=== PATIENT | male | born 1960 | race Hispanic/Latino ===

== ENCOUNTER 2018-04-26 14:59 | Observation (INO) | payer OTHER ==
[2018-04-26] MEDS ORDERED: D50W 25 GM/50 ML SYRINGE IV PRN (15:44)
[2018-04-26] MEDS ORDERED: GLUCAGON 1 MG/VIAL IM PRN (15:44)
--- NOTE | 2018-04-26 15:59 | RAD REPORT ---
EXAM DESCRIPTION: Obed Single View04/26/2018 3:53 pm CLINICAL HISTORY: Chest pain COMPARISON: February 2017 FINDINGS: The lungs appear clear of acute infiltrate. The heart is normal size. Old left rib fractu res are noted IMPRESSION: No acute abnormalities displayed
[2018-04-26] MEDS: INSULIN -REGULAR HUMAN 50 UNIT/0.5 ML ML SQ SCH ×2 (16:30→21:48)
--- NOTE | 2018-04-26 16:39 | RAD REPORT ---
EXAM DESCRIPTION: CT - Head Brain Wo Cont - 04/26/2018 4:20 pm CLINICAL HISTORY: Transient alteration of awareness COMPARISON: None. TECHNIQUE: Axial 5 mm thick images of the head were obtained without IV contrast. All CT scans are performed using dose optimization technique as appropriate and may include automated exposure control or mA/KV adjustment according to patient size. FINDINGS: No intracranial hemorrhage, mass, edema or shift of mid-line structures. No acute infarcti on changes seen. No measurable atrophy or chronic ischemic change. Ventricles are normal. Mastoid air cells and visualized portions of the paranasal sinuses are clear. No acute bony findings. IMPRESSION: Negative non-contrast CT head examination.
[2018-04-26 17:11] LABS: Absolute Lymphocytes (CBC) 1.8 K/uL (0.7-4.9); Absolute Monocytes 0.7 K/uL (0.1-1.3); Absolute Neutrophil 5.3 K/uL (1.8-8.0); Eosinophils % 1.7 % (0-4.4); Hematocrit 35.3 % (39.6-49.0); Lymphocytes % 22.6 % (15.3-44.8); MCH 32.6 pg (27.0-35.0); MCV 95.2 fL (80-100); MPV 8.1 fL (7.6-11.3); Monocytes % 8.5 % (3.3-12.3); RBC Red Blood Cell Count 3.71 M/uL (4.33-5.43)
[2018-04-26] MEDS: NA CHLORIDE 0.9% 1,000 ML IV SCH ×2 (17:23→23:45)
[2018-04-26 17:28] LABS: Albumin 2.6 g/dL (3.4-5.0); Bilirubin Total 0.2 mg/dL (0.2-1.0); Potassium 4.4 mmol/L (3.5-5.1)
[2018-04-26 19:01] LABS: Urine Appearance CLEAR; Urine Bilirubin NEGATIVE (NEG); Urine Blood 1+ (NEG); Urine Color YELLOW; Urine Glucose 3+ (NEG); Urine Protein 2+ (NEG); Urine Specific Gravity 1.015 (1.005-1.030); Urine Urobilinogen 0.2 mg/dL (0.2-1.0); Urine pH 5.5 (5.0-7.0)
[2018-04-26 19:33] LABS: Urine Microscopic Reflex ORDER UMIC
[2018-04-26 19:43] LABS: Urine Bacteria NONE SEEN /HPF (NONE SEEN); Urine Culture Reflex Order NOT NEEDED; Urine RBC <5 /HPF (NONE SEEN)
[2018-04-27] MEDS: NA CHLORIDE 0.9% 1,000 ML IV SCH ×2 (05:55→08:00)
[2018-04-27] MEDS: INSULIN -REGULAR HUMAN 50 UNIT/0.5 ML ML SQ SCH ×2 (09:02→12:04)
--- NOTE | 2018-04-27 21:46 | HP ---
Date of Admission: 04/26/2018 Chief Complaint: Weakness, dizziness, high blood sugar. History Of Present Illness: A 57-year-old male who was not seen in the office for more than a year, was brought to the office because of feeling weak and high blood sugars. He was found to have blood pressure of 100/70 with dizziness and clinically he was dehydrated. Based on this, he was admitted f or observation. There was no history of fever, chills, or rigors. Past Medical History: Includes type 2 diabetes. The patient has been taking medicines intermittentl y. He has history of leukemia and bone marrow transplant following that. Other problems include his tory of hypertension and hyperlipidemia. Past Surgical History: Positive for a chest tube in the past. Family History: Positive for diabetes, hypertension, heart disease. Allergies: NONE. Review of Systems: No history of fever, chills, rigors. Physical Examination: Vital Signs: Revealed blood pressure of 100/70 in the office, however, it was normal when he was bro ught to the hospital. Temperature normal. HEENT: No icterus. Neck: Supple. JVD negative. Chest: Few scattered wheezes. Heart: Regular. Abdomen: Soft. Extremities: No edema. Laboratory Data: White count normal, hemoglobin 12.1. Chem profile; BUN 31, creatinine 1.5, glucose 327. Chest x-ray negative. CT head negative. Assessment: 1.Dehydration. 2.Poorly-controlled diabetes causing above. 3.Hypertension. 4.Hyperlipidemia. 5.History of leukemia, in remission. Plan: The patient received IV fluids and insulin. He will have recheck of Chem-7, and if it is reas onable, he will be discharged and followed up in the office. SURI/LISA Voice ID: [id number]
== END 2018-04-27 16:38 | disposition home or self-care (01) ==
LOC: 2ND 15:23
PROVIDERS: ADMIT Internal Medicine; ATTEND Internal Medicine
DX: E86.0 Dehydration (principal); E11.65 Type 2 diabetes mellitus with hyperglycemia; I10 Essential (primary) hypertension; E78.5 Hyperlipidemia, unspecified; C95.91 Leukemia, unspecified, in remission
CPT/HCPCS: 36415 ×2; 70450; 71045; 80048; 80053; 82962 ×5; 85025; J7030 ×3; 81003; 81015; G0378; G0379

== ENCOUNTER 2022-04-15 15:31 | Inpatient (IN) | payer OTHER ==
--- OUTSIDE RECORDS SUMMARY | 2022-04-15 16:00 | XMS REPORT | Continuity of Care Document ---
:1960 Author Organization [facility] t Address [address] [place] [address] Care Team Providers Name Role Phone Anu SEVERINO, Bina Attending Clinician Unavailable Toro Jackson DO Attending Clinician Geovanna SILVA, Thierry Valle Attending Clinician Sergio SILVA, Lanre Attending Clinician Lew Jacobson MD Attending Clinician Doctor Unassigned, [place] Attending Clinician Unavailable Pob, [facility] Main Attending Clinician Unavailable Jennifer Burnham MD Attending Clinician JENNIFER BURNHAM Attending Clinician Unavailable Kasey Padgett DO Attending Clinician Robert Rich MD Attending Clinician KASEY PADGETT Attending Clinician Unavailable Lew Jacobson MD Admitting Clinician Robert Rich MD Admitting Clinician Payers Payer Name Policy Type Policy Number Effective Date Expiration Date Leonard lovell MEDICARE PART A [id number] 1988 \\T\\ B 00:00:00 Problems Condition Condition Condition Status Onset Resolution Last Treating Co mments Source Name Details Category Date Date Treatment Clinician Date Elevated Elevated Disease Active Unive rs troponin I troponin I 12-20 it y of level level 00:00: [place] 00 Medical Branch Elevated Elevated Disease Active Unive rs brain brain - ity of natriure[place] natriureti [place] c peptide c peptide 00 Medi vick (BNP) (BNP) Branch level level Dyslipidem Dyslipidem Disease Active 2021-0 U nivers ia ia 4-17 ity of 00:00: [address] Type 2 Type 2 Disease Active Univers diabetes diabetes 4-17 ity of mellitus mellitus 00:00: [place] with other with other 00 Me dical specified specified Bran ch complicati complicati on on Acute Acute Disease Active Univers kidney kidney 4-17 ity of injury injury 00:00: [place] superimpos superimpos 00 Me dical ed on CKD ed on CKD Bran ch Fever in Fever in Disease Active Unive rs adult adult 4-15 ity of 00:00: [address] Essential Essential Disease Active 2019-09 Uni vers hypertensi hypertensi 1-03 it y of on on 00:00: [address] HTN HTN Disease Active 2019-09 Univers (hypertens (hypertens 1-03 it y of ion) ion) 00:00: [address] Diabetic Diabetic Disease Active 2019-09 Unive rs foot foot 1- ity of infection infection 00:00: [address] Obesity Obesity Disease Active 2019-09 Univers (BMI (BMI 1-01 ity of 30-39.9) 30-39.9) 00:00: [address] Allergies, Adverse Reactions, Alerts Allergy Allergy Status Severity Reaction(s) Onset Inactive Treating Comm ents Source Name Type Date Date Clinician NO KNOWN Drug Active Univers ALLERGIE Class ity of S [facility] Social History Social Habit Start Date Stop Date Quantity Comments Source Exposure to Not sure [facility] SARS-CoV-2 [facility] (event) Branch Tobacco use and 2020-12-18 2020-12-18 Never used Universit y of exposure 00:00:00 00:00:00 [facility] Alcohol intake 2020-12-18 2020-12-18 Ex-drinker [facility] 00:00:00 00:00:00 (finding) [facility] Sex Ass[birth year] At [birth year] Universit y of 00:00:00 00:00:00 [facility] Smoking Status Start Date Stop Date Source Never smoker [facility] Medications Ordered Filled Start Stop Current Ordering Indication Dosage Frequency Signature Comments Components Source Medication Medication Date Date Medication? Clinician (SIG) Name Name bárbarajude 2020- No [id number] Take 1 Univers rol, 4-27 01- capsule by ity of vitamin d2, 00:00[place] 04:59 [place] 1,250 mcg 00 :00 weekly for Medi vick (50,000 6 days. Branch unit) capsule ergocalcife 2020- No [id number] Take 1 Univers rol, 4-25 -02 capsule by ity of vitamin d2, 00:00: 04:59 [place] 1,250 mcg 00 :00 weekly for Medi vick (50,000 6 days. Branch unit) capsule aspirin 81 2020- No [id number] 81mg Take 1 Univers mg chewable 12-24-22 tablet by it y of tablet 00:00: 04:59 mouth [place] 00 :00 daily for Medical 30 days. Branch metoprolol 2020- No [id number] 25mg Take 1 Univers succinate -23 01-22 tablet by ity of XL 25 mg 24 00:00: 04:59 [place] hr tablet 00 :00 daily for Medic al 30 days. Branch aspirin 81 2020- No [id number] 81mg Take 1 Univers mg chewable 12-24-22 tablet by it y of tablet 00:00: 04:59 mouth [place] 00 :00 daily for Medical 30 days. Branch metoprolol 2020- No [id number] 25mg Take 1 Univers succinate -23 01-22 tablet by ity of XL 25 mg 24 00:00: 04:59 [place] hr tablet 00 :00 daily for Medic al 30 days. Branch atorvastati Yes 40mg Take 40 mg Univers n (LIPITOR) 4-20 by mouth ity of 40 mg 20:42: at [place] tablet 04 bedtime. Medical Branch glimepiride Yes 2mg Take 2 mg U nivers 2 mg tablet 4-20 by mouth ity of 20:42: daily with [place] 04 breakfast. Medical Branch insulin NPH Yes 10U inject 10 U nivers and regular 4-20 Units ity of human 70-30 20:42: under the [place] 100 unit/mL 04 skin 2 Medica l (70-30) (two) Branch injection times daily before breakfast and dinner. hydrALAZINE Yes 50mg Take 50 mg Univers 50 mg 4-20 by mouth ity of tablet 20:42: every 8 [place] (eight) Medical hours. Branch losartan Yes 100mg Take 100 Univ ers 100 mg 4-20 mg by ity of tablet 20:42: mouth [place] 04 daily. Medical Branch atorvastati Yes 40mg Take 40 mg Univers n (LIPITOR) 4-20 by mouth ity of 40 mg 20:42: at [place] tablet 04 bedtime. Medical Branch glimepiride Yes 2mg Take 2 mg U nivers 2 mg tablet 4-20 by mouth ity of 20:42: daily with [place] 04 breakfast. Medical Branch insulin NPH Yes 10U inject 10 U nivers and regular 4-20 Units ity of human 70-30 20:42: under the [place] 100 unit/mL 04 skin 2 Medica l (70-30) (two) Branch injection times daily before breakfast and dinner. hydrALAZINE Yes 50mg Take 50 mg Univers 50 mg 4-20 by mouth ity of tablet 20:42: every 8 [place] (eight) Medical hours. Branch losartan Yes 100mg Take 100 Univ ers 100 mg 4-20 mg by ity of tablet 20:42: mouth [place] 04 daily. Medical Branch carvediloL 2020- No 12.5mg Take 12.5 Univers 12.5 mg 4-20 04-20 mg by ity of tablet 17:25: 00:00 mouth 2 [place] 08 :00 (two) Medical times Branch daily with meals. acetaminoph Yes 650mg 650 mg, Un leatha en 4-20 Oral, ity of (TYLENOL) 14:41: Q6HPRN, [place] tablet 650 42 Starting Medic al mg Tue Branch 12/23/20 at 0941, Until Discontinu ed, Routine, Pain (scale 4-6) gabapentin Yes 100mg 100 mg, Uni vers (NEURONTIN) 4-20 Oral, BID, it y of capsule 100 02:15: First dose [place] mg 00 (after Medical last Branch modificati on) on 12/22/20 at 2115, Until Discontinu ed, Routine furosemide 2020- No [id number] 40mg Take 1 Univers 40 mg 4-20 05-21 tablet by ity of tablet 00:00: 04:59 mouth [place] 00 :00 every Medical morning Branch and evening for 30 days. gabapentin 2020- No [id number] 100mg Take 1 Univers 100 mg 4-20 05-21 capsule by ity of capsule 00:00: 04:59 mouth 2 [place] 00 :00 (two) Medical times [place] daily for 30 days. tamsulosin 2020- No [id number] .4mg Take 1 Univers 0.4 mg 24 4-20 05-21 capsule by ity of hr capsule 00:00: 04:59 mouth at [place] 00 :00 bedtime Medical for 30 Branch days. furosemide 2020- No [id number] 40mg Take 1 Univers 40 mg 4-20 05-21 tablet by ity of tablet 00:00: 04:59 mouth [place] 00 :00 every Medical morning Branch and evening for 30 days. gabapentin 2020- No [id number] 100mg Take 1 Univers 100 mg 4-20 05-21 capsule by ity of capsule 00:00: 04:59 mouth 2 [place] 00 :00 (two) Medical times [place] daily for 30 days. tamsulosin 2020- No [id number] .4mg Take 1 Univers 0.4 mg 24 4-20 05-21 capsule by ity of hr capsule 00:00: 04:59 mouth at [place] 00 :00 bedtime Medical for 30 Branch days. gabapentin 2020- No 300mg 300 mg, Un leatha (NEURONTIN) 12-22-19 Oral, ity of capsule 300 06:30: 05:26 ONCE, 1 [place] mg 00 :00 dose, [facility] Medical 12/22/20 at Branch 0130, Routine aspirin Yes 81mg 81 mg, Univers chewable 4-18 Oral, ity of tablet 81 20:00: DAILY, [place] mg 00 First dose Medical on [facility] 12/21/20 at 1500, Until Discontinu ed, Routine hydrALAZINE 2020-0 Yes 50mg 50 mg, Univ ers (APRESOLINE 4-18 Oral, Q8H, it y of ) tablet 50 19:45: First dose [place] mg 00 on [facility] 12/21/20 at Branch 1445, Until Discontinu ed, Routine KCL 2020-2020- No 20meq 20 mEq, Univers (KLOR-CON 12-21 Oral, ity of M20) tablet 18:30: 18:19 ONCE, 1 [place] 20 mEq 00 :00 dose, [facility] 12/21/20 at Branch 1330, Routine furosemide 2020- No 40mg 40 mg, Univ ers (LASIX) 12-21 Slow IV ity of injection 18:30: 18:20 Push, [place] 40 mg 00 :00 ONCE, 1 Medical dose, [facility] 12/21/20 at 1330, Routine ergocalcife Yes [id number] 50,000 Un leatha rol 12-21 Units, ity of (vitamin 14:00: Oral, [place] d2) 00 QWEEKLY, Medical (CALCIFEROL First dose Br anch ) capsule on [place] 50,000 12/21/20 at Units 0900, Until Discontinu ed, Routine losartan Yes 50mg 50 mg, Univers (COZAAR) 12-21 Oral, ity of tablet 50 14:00: DAILY, [place] mg 00 First dose Medical (after [place] last modificati on) on [place] 12/21/20 at 0900, Until Discontinu ed, Routine furosemide Yes 40mg 40 mg, Unive rs (LASIX) 12-20 Oral, ity of tablet 40 14:00: QAM+PM, [place] mg 00 First dose Medical on [facility] 12/20/20 at 0900, Until Discontinu ed, Routine metoprolol Yes 25mg 25 mg, Unive rs succinate 12-20 Oral, ity of XL (TOPROL 14:00: DAILY, [place] XL) tablet 00 First dose Med ical 25 mg (after [place] last modificati on) on [facility] 12/20/20 at 0900, Until Discontinu ed, Routine losartan 2020- No 25mg 25 mg, Univer s (COZAAR) 12-20 Oral, ity of tablet 25 14:00: 18:34 DAILY, [place] mg 00 :42 First dose Medical on [facility] 12/20/20 at 0900, Until Discontinu ed, Routine tamsulosin 2021-0 Yes .4mg 0.4 mg, Univ ers (FLOMAX) 4-17 Oral, QHS, ity o f capsule 0.4 02:00: First dose [place] mg 00 (after Medical last Branch modificati on) on Tue12/19/20 at 2100, Until Discontinu ed, Routine atorvastati Yes 40mg 40 mg, Univ ers n (LIPITOR) 4-17 Oral, QHS, it y of tablet 40 02:00: First dose [place] mg 00 on Tue Medical 12/19/20 at Branch 2100, Until Discontinu ed, Routine vancomycin 2020- No 1000mg 1,000 mg, Univers (VANCOCIN) 12-20-18 IV ity of 1,000 mg in 01:08: 19:56 Piggyback, [place] NaCl 0.9% 00 :48 Q24H, Medical (NS) 250 mL First dose Br anch VIAL-MATE (after IV last piggyback modificati on) on Tue12/19/20 at 2015, Until Discontinu ed, 250 mL
Reas on for Anti-Infec tive: Empiric Therapy for Suspected Infection< br>Empi jordana Therapy Site: Urine
D uration of therapy: 72 hours sulfur 2020- No [id number] 5mL 5 mL, Univ ers hexafluorid 12-19-16 Intravenou i ty of e microsphr 18:00: 19:00 s, ONCE, 1 [place] (LUMASON) 00 :00 dose, Fri Medic al injection 5 12/19/20 at Br anch mL 1300, Routine
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 Restricted medication : CRISTHIAN RUTH docusate Yes 100mg 100 mg, Unive rs (COLACE) 4-16 Oral, BID, ity o f capsule 100 13:00: First dose [place] mg 00 on Tue Medical 12/19/20 at Branch 0800, Until Discontinu ed, Routine heparin Yes 5000U 5,000 Univers (porcine) 4-16 Units, ity of injection 13:00: Subcutaneo [place] 5,000 Units 00 us, Q12H, Med ical First dose Branch on Tue12/19/20 at 0800, Until Discontinu ed, Routine Sliding Yes Subcutaneo Univ ers Scale -16 us, TID ity of Insulin - 13:00: MEALS, [place] Lispro 00 First dose Medical (HumaLOG) + on Tue Branch Fsbg 12/19/20 at Testing 0800, Until Discontinu ed, Routine glimepiride Yes 2mg 2 mg, Unive rs (AMARYL) 12-19 Oral, QAM ity of tablet 2 mg 13:00: WITH [place] 00 BREAKFAST, Medical First dose Branch on Tue12/19/20 at 0800, Until Discontinu ed, Routine insulin NPH Yes 7U 7 Units, Un leatha and regular 12-19 Subcutaneo it y of human 70-30 12:30: us, BIDAC, [place] (HUMULIN 00 First dose Medic al 70-30 U-100 on Tue Branch INSULIN) 12/19/20 at 100 unit/mL 0730, (70-30) Until injection 7 Discontinu Units ed, Routine piperacilli Yes 2.25g 2.25 g, IV Univers n-tazobacta 12-19 Piggyback, it y of m (ZOSYN) 09:15: Q8H ABX, [place] 2.25 g in 00 First dose Medi vick NaCl 0.9% (after Branch (NS) 100 mL last MINI-BAG reorder) on Tue12/19/20 at 0415, Until Discontinu ed, 100 mL
Reas on for Anti-Infec tive: Empiric Therapy for Suspected Infection< br>Empiric Therapy Site: Urine
D uration of therapy: 72 hours lactobacill Yes 1{tbl} 1 tablet, Univers us 12-19 Oral, BID, ity of acidophilus 08:15: First dose [place] (ACIDOPHILL 00 on Fri Medica l US) 25 12/19/20 at Branch million 0315, cell -100 Until mg captab 1 Discontinu tablet ed, Routine metoprolol No 25mg 25 mg, Univ ers succinate 12-19 04-17 Oral, BID, ity of XL (TOPROL 08:15: 06:21 First dose [place] XL) tablet 00 :48 on Fri Medical 25 mg 12/19/20 at Branch 0315, Until Discontinu ed, Routine aspirin No 81mg 81 mg, Univers chewable 12-19 Oral, QAM ity o f tablet 81 08:15: 15:48 WITH [place] mg 00 :23 BREAKFAST, Medical First dose Branch on Tue12/19/20 at 0315, Until Discontinu ed, Routine ondansetron Yes 4mg 4 mg, Slow Univers (ZOFRAN 16 IV Push, ity of (PF)) 08:05: Q6HPRN, [place] injection 4 14 Starting Medi vick mg Fri Branch 12/19/20 at 0305, Until Discontinu ed, Routine, Nausea and Vomiting (N/V) glucagon Yes 1mg 1 mg, Univers (GLUCAGEN 12-19 Intramuscu ity of DIAGNOSTIC 08:03: lar, PRN, [place] KIT) 48 Starting Medical injection 1 Fri Branch mg 12/19/20 at 0303, Until Discontinu ed, SAL, Blood Glucose < or = 70 mg/dL and patient is unable to swallow or has mental changes. dextrose 50 Yes 25mL 25 mL, Univ ers % in water 12-19 Slow IV ity of (D50W) 08:03: Push, PRN, [place] injection 48 Starting Medica l 25 mL Fri Branch 12/19/20 at 0303, Until Discontinu ed, SAL, Blood Glucose < or = 70 mg/dL and patient is unable to swallow or has mental status changes. iohexol 2020- No [id number] 100mL 100 mL, Univers (OMNIPAQUE 12-19 Intravenou it y of 350 03:15: 02:50 s, ONCE, 1 [place] BULK-100 00 :00 dose, Anni Medica l mL) 12/18/20 at Branch injection 2215, 100 mL Routine vancomycin No 1000mg 1,000 mg, Univers (VANCOCIN) 12-19 IV ity of 1,000 mg in 01:00: 12:39 [facility], [place] NaCl 0.9% 00 :06 Q12H ABX, Medic al (NS) 250 mL First dose Br anch VIAL-MATE on Anni IV 12/18/20 at piggyback 2000, Until Discontinu ed, 250 mL
Reas on for Anti-Infec tive: Empiric Therapy for Suspected Infection< br>Empiric Therapy Site: Urine
D uration of therapy: 72 hours piperacilli 2020- No 3.375g 3.375 g, Univers n-tazobacta 12-19-16 IV ity of m (ZOSYN) 01:00: 01:29 [place], [place] 3.375 g in 00 :00 ONCE, 1 Medica l NaCl 0.9% dose, Anni Branc h (NS) 100 mL 12/18/20 at MINI-BAG 2000, 100 mL
Reas on for Anti-Infec tive: Empiric Therapy for Suspected Infection< br>Empiric Therapy Site: Urine
D uration of therapy: 72 hours NaCl 0.9% 2020- No 1000mL at 999 Uni vers (NS) bolus 12-19-16 mL/hr, ity of infusion 00:15: 02:47 1,000 mL, [place] 1,000 mL 00 :[facility] dose, [place] 12/18/20 at 1915, STAT benzonatate 2020- No 100mg 100 mg, U nivers (TESSALON 12-19 Oral, ity of PERLES) 00:15: 23:17 ONCE, 1 [place] capsule 100 00 :00 dose, Anni Med ical mg 12/18/20 at [place] 1915, Routine ergocalcife 2019-09- No [id number] Take 1 Univers rol, 09-15 12-18 capsule by ity of vitamin d2, 00:00: 05:59 mouth [place] 1,250 mcg 00 :00 weekly for Medi vick (50,000 6 doses. Branch unit) capsule ergocalcife 2019-09- No [id number] Take 1 Univers rol, - 12-18 capsule by ity of vitamin d2, 00:00: 05:59 mouth [place] 1,250 mcg 00 :00 weekly for Medi vick (50,000 6 doses. Branch unit) capsule ergocalcife 2019-09- No [id number] Take 1 Univers rol, 1-11 12-18 capsule by ity of vitamin d2, 00:00: 05:59 mouth [place] 1,250 mcg 00 :00 weekly for Medi vick (50,000 6 doses. Branch unit) capsule ergocalcife 2019-09- No [id number] Take 1 Univers rol, 09-15 capsule by ity of vitamin d2, 00:00: 05:59 mouth [place] 1,250 mcg 00 :00 weekly for Medi vick (50,000 6 doses. Branch unit) capsule collagenase 2019-09 Yes [id number] Apply to Univers 250 1-05 affected ity of unit/gram 00:00: area(s) [place] ointment 00 daily. Medical Branch collagenase 2019-09 Yes [id number] Apply to Univers 250 1-05 affected ity of unit/gram 00:00: area(s) [place] ointment 00 daily. Medical Branch collagenase 2019-09 Yes [id number] Apply to Univers 250 1-05 affected ity of unit/gram 00:00: area(s) [place] ointment 00 daily. Medical Branch collagenase 2019-09 Yes [id number] Apply to Univers 250 1-05 affected ity of unit/gram 00:00: area(s) [place] ointment 00 daily. Medical Branch collagenase 2019-09 Yes [id number] Apply to Univers 250 1-05 affected ity of unit/gram 00:00: area(s) [place] ointment 00 daily. Medical Branch collagenase 2019-09 Yes [id number] Apply to Univers 250 1-05 affected ity of unit/gram 00:00: area(s) [place] ointment 00 daily. Medical Branch collagenase 2019-09- No [id number] Apply to Univers 250 1-05 04-20 affected ity of unit/gram 00:00: 00:00 area(s) [place] ointment 00 :00 daily. Medical Branch insulin NPH 2019-09- No [id number] 10U inject 10 Univers and regular - 12-06 Units ity of human 70-30 00:00: 05:59 under the [place] 100 unit/mL 00 :00 skin every Me dical (70-30) morning Branch injection for 30 days. insulin NPH 2019-09- No [id number] 10U inject 10 Univers and regular - 12-06 Units ity of human 70-30 00:00: 05:59 under the [place] 100 unit/mL 00 :00 skin every Me dical (70-30) morning Branch injection for 30 days. insulin NPH 2019-09- No [id number] 10U inject 10 Univers and regular 1-05 12-06 Units ity of human 70-30 00:00: 05:59 under the [place] 100 unit/mL 00 :00 skin every Me dical (70-30) morning Branch injection for 30 days. insulin NPH 2019-09- No [id number] 10U inject 10 Univers and regular 1-05 12-06 Units ity of human 70-30 00:00: 05:59 under the [place] 100 unit/mL 00 :00 skin every Me dical (70-30) morning Branch injection for 30 days. atorvastati 2019-09 Yes 40mg Take 40 mg Univers n (LIPITOR) 1-04 by mouth ity of 40 mg 23:32: at [place] tablet 39 bedtime. Medical Branch glimepiride 2019-09 Yes 2mg Take 2 mg U nivers 2 mg tablet 1-04 by mouth ity of 23:32: daily with [place] 39 breakfast. Medical Branch atorvastati 2019-09 Yes 40mg Take 40 mg Univers n (LIPITOR) 1-04 by mouth ity of 40 mg 23:32: at [place] tablet 39 bedtime. Medical Branch glimepiride 2019-09 Yes 2mg Take 2 mg U nivers 2 mg tablet 1-04 by mouth ity of 23:32: daily with [place] 39 breakfast. Medical Branch atorvastati 2019-09 Yes 40mg Take 40 mg Univers n (LIPITOR) 1-04 by mouth ity of 40 mg 23:32: at [place] tablet 39 bedtime. Medical Branch glimepiride 2019-09 Yes 2mg Take 2 mg U nivers 2 mg tablet 1-04 by mouth ity of 23:32: daily with [place] 39 breakfast. Medical Branch atorvastati 2019-09 Yes 40mg Take 40 mg Univers n (LIPITOR) 1-04 by mouth ity of 40 mg 23:32: at [place] tablet 39 bedtime. Medical Branch glimepiride 2019-09 Yes 2mg Take 2 mg U nivers 2 mg tablet 1-04 by mouth ity of 23:32: daily with [place] 39 breakfast. Medical Branch atorvastati 2019-09 Yes 40mg Take 40 mg Univers n (LIPITOR) -04 by mouth ity of 40 mg 23:32: at [place] tablet 39 bedtime. Medical Branch glimepiride 2019-09 Yes 2mg Take 2 mg U nivers 2 mg tablet -04 by mouth ity of 23:32: daily with [place] 39 breakfast. Medical Branch atorvastati 2019-09 Yes 40mg Take 40 mg Univers n (LIPITOR) -04 by mouth ity of 40 mg 23:32: at [place] tablet 39 bedtime. Medical Branch glimepiride 2019-09 Yes 2mg Take 2 mg U nivers 2 mg tablet -04 by mouth ity of 23:32: daily with [place] 39 breakfast. Medical Branch losartan 2019-09 2020- No 100mg Take 100 Uni vers 100 mg - 11-04 mg by ity of tablet 20:49: 00:00 mouth [place] 33 :00 daily. Medical Branch insulin NPH 2019-09 Yes 10U 10 Units, U nivers and regular 104 Subcutaneo it y of human 70-30 15:00: us, QAM, [place] (HUMULIN 00 First dose Medic al 70-30 U-100 on Tue Branch INSULIN) 07/09/20 at 100 unit/mL 0900, (70-30) Until injection Discontinu 10 Units ed, Routine ergocalcife 2019-09 Yes [id number] 50,000 Un leatha rol 1-04 Units, ity of (vitamin 15:00: Oral, [place] d2) 00 QWEEKLY, Medical (CALCIFEROL First dose Br anch ) capsule on Tue 50,07/09/20 at Units 0900, Until Discontinu ed, Routine hydrALAZINE 2019-09 Yes 50mg 50 mg, Univ ers (APRESOLINE 1-04 Oral, Q8H, it y of ) tablet 50 04:00: First dose [place] mg 00 (after Medical last Branch modificati on) on Tue07/08/20 at 2200, Until Discontinu ed, Routine carvediloL 2019-09 2020- No [id number] 12.5mg Take 1 Univers 12.5 mg 09-08 12-05 tablet by ity of tablet 00:00: 05:59 mouth 2 [place] 00 :00 (two) Medical times Branch daily with meals for 30 days. hydrALAZINE 2019-09 2020- No [id number] 50mg Take 1 Univers 50 mg - 12-05 tablet by ity of tablet 00:00: 05:59 mouth [place] 00 :00 every 8 Medical (eight) Branch hours for 30 days. insulin NPH 2019-09- No [id number] 15U inject 15 Univers and regular 1-04 12-05 Units ity of human 70-30 00:00: 05:59 under the [place] 100 unit/mL 00 :00 skin every Me dical (70-30) evening Branch injection for 30 days. carvediloL 2019-09 2020- No [id number] 12.5mg Take 1 Univers 12.5 mg - 12-05 tablet by ity of tablet 00:00: 05:59 mouth 2 [place] 00 :00 (two) Medical times Branch daily with meals for 30 days. hydrALAZINE 2019-09- No [id number] 50mg Take 1 Univers 50 mg - 12-05 tablet by ity of tablet 00:00: 05:59 mouth [place] 00 :00 every 8 Medical (eight) Branch hours for 30 days. insulin NPH 2019-09- No [id number] 15U inject 15 Univers and regular 1-04 12-05 Units ity of human 70-30 00:00: 05:59 under the [place] 100 unit/mL 00 :00 skin every Me dical (70-30) evening Branch injection for 30 days. carvediloL 2019-09 2020- No [id number] 12.5mg Take 1 Univers 12.5 mg - 12-05 tablet by ity of tablet 00:00: 05:59 mouth 2 [place] 00 :00 (two) Medical times Branch daily with meals for 30 days. hydrALAZINE 2019-09- No [id number] 50mg Take 1 Univers 50 mg 1-04 12-05 tablet by ity of tablet 00:00: 05:59 mouth [place] 00 :00 every 8 Medical (eight) Branch hours for 30 days. insulin NPH 2019-09- No [id number] 15U inject 15 Univers and regular 1-04 12-05 Units ity of human 70-30 00:00: 05:59 under the [place] 100 unit/mL 00 :00 skin every Me dical (70-30) evening Branch injection for 30 days. carvediloL 2019-09- No [id number] 12.5mg Take 1 Univers 12.5 mg 09-08 12-05 tablet by ity of tablet 00:00: 05:59 mouth 2 [place] 00 :00 (two) Medical times Branch daily with meals for 30 days. hydrALAZINE 2019-09- No [id number] 50mg Take 1 Univers 50 mg 09-08 12-05 tablet by ity of tablet 00:00: 05:59 mouth [place] 00 :00 every 8 Medical (eight) Branch hours for 30 days. insulin NPH 2019-09- No [id number] 15U inject 15 Univers and regular 09-08 12-05 Units ity of human 70-30 00:00: 05:59 under the [place] 100 unit/mL 00 :00 skin every Me dical (70-30) evening Branch injection for 30 days. doxycycline 2019-09- No [id number] 100mg Take 1 Univers hyclate 100 1-04 11-15 capsule by i ty of mg capsule 00:00: 05:59 mouth [place] 00 :00 every 12 Medical (twelve) Branch hours for 10 days. acidophilus 2019-09- No [id number] 1g Take 1 Univers 100 million 1-04 11-15 tablet by it y of cell tablet 00:00: 05:59 mouth 2 [place] 00 :00 (two) Medical times Branch daily for 10 days. doxycycline 2019-09- No [id number] 100mg Take 1 Univers hyclate 100 1-04 11-15 capsule by i ty of mg capsule 00:00: 05:59 mouth [place] 00 :00 every 12 Medical (twelve) Branch hours for 10 days. acidophilus 2019-09- No [id number] 1g Take 1 Univers 100 million 1-04 11-15 tablet by it y of cell tablet 00:00: 05:59 mouth 2 [place] 00 :00 (two) Medical times Branch daily for 10 days. insulin NPH 2019-09 Yes 15U 15 Units, U nivers and regular 1-03 Subcutaneo it y of human 70-30 23:00: us, QPM, [place] (HUMULIN 00 First dose Medic al 70-30 U-100 on Tu Branch INSULIN) 07/08/20 at 100 unit/mL 1700, (70-30) Until injection Discontinu 15 Units ed, Routine vancomycin 2019-09 Yes 15mg/kg 1,250 mg Univers 1250 mg in 03 (rounded ity o f NS 250 mL 15:00: from 1,185 [place] RTU IV 00 mg = 15 Medical Piggyback mg/kg ?79 Branc h 1,250 mg kg), IV Piggyback, Q24H ABX, First dose (after last modificati on) on Tue07/08/20 at 0900, Until Discontinu ed
Reas on for Anti-Infec tive: Documented Infection< br>Documen flor Infection Site: Skin / Soft Tissue
Duration of Therapy: 7 days glimepiride 2019-09 Yes 2mg 2 mg, Unive rs (AMARYL) 03 Oral, QAM ity of tablet 2 mg 14:00: WITH [place] 00 BREAKFAST, Medical First dose Branch on Tue07/08/20 at 0800, Until Discontinu ed, Routine atorvastati 2019-09 Yes 40mg 40 mg, Univ ers n (LIPITOR) 09-07 Oral, QHS, it y of tablet 40 03:00: [place] dose [place] 00 [place] Tue [facility] 07/07/20 at Branch 2100, Until Discontinu ed, Routine losartan 2019-09 2020- No 100mg 100 mg, Univ ers (COZAAR) 09-06 Oral, ity of tablet 100 21:00: 20:15 DAILY, [place] mg 00 :33 First dose Medical (after Branch last modificati on) on Tue07/07/20 at 1500, Until Discontinu ed, Routine metFORMIN 2019-09 2020- No 500mg Take 500 Un leatha 500 mg 09-06 mg by ity of tablet 20:56: 00:00 mouth 2 [place] 38 :00 (two) Medical times Branch daily with meals. hydrALAZINE 2019-09 2020- No 25mg 25 mg, Uni vers (APRESOLINE 09-06 Oral, Q8H, i ty of ) tablet 25 20:00: 20:15 First dose [place] mg 00 :33 on [facility] 07/07/20 at Branch 1400, Until Discontinu ed, Routine NaCl 0.9% 2019-09 Yes 1000mL at 50 Unive rs (NS) IV 1-02 mL/hr, IV ity of infusion 16:30: Infusion, [place] 1,000 mL 00 CONTINUOUS Medic al , Starting Branch 07/07/20 at 1030, Until Discontinu ed, Routine collagenase 2019-09 Yes Topical Uni vers (SANTYL) 09-06 (Apply To ity of ointment 15:00: Affected [place] 00 Areas), Medical DAILY, Branch First dose on [facility] 07/07/20 at 0900, Until Discontinu ed, Routine vancomycin 2019-09 2020- No 15mg/kg 1,250 mg Univers 1250 mg in 09-06 (rounded ity of NS 250 mL 00:00: 14:12 from 1,185 [place] RTU IV 00 :23 mg = 15 Medical Piggyback mg/kg ?79 Branc h 1,250 mg kg), IV Piggyback, Q12H ABX, First dose on [place] 07/06/20 at 1800, Until Discontinu ed
Reas on for Anti-Infec tive: Documented Infection< br>Documen flor Infection Site: Skin / Soft Tissue
Duration of Therapy: 7 days carvediloL 2019-09 Yes 12.5mg 12.5 mg, U nivers (COREG) 09-05 Oral, BID ity of tablet 12.5 23:00: MEALS, [place] mg 00 First dose Medical on [facility] 07/06/20 at 1700, Until Discontinu ed, Routine Sliding 2019-09 Yes Subcutaneo Univ ers Scale 09-05 us, TID ity of Insulin - 23:00: MEALS+HS, [place] Lispro 00 First dose Medical (HumaLOG) + on [facility] Fsbg 07/06/20 at Testing 1700, Until Discontinu ed, Routine enoxaparin 2019-09 Yes 40mg 40 mg, Unive rs (LOVENOX) 09-05 Subcutaneo ity of injection 23:00: [place], [place]ILY, [place] 40 mg 00 First dose Medical on [facility] 07/06/20 at 1700, Until Discontinu ed, Routine amLODIPine 2019-09- No 5mg 5 mg, Unive rs (NORVASC) 09-05 Oral, ity of tablet 5 mg 22:45: 16:29 DAILY, [place] 00 :50 First dose Medical on [facility] 07/06/20 at 1645, Until Discontinu ed, Routine glipiZIDE 2019-09- No 10mg 10 mg, Unive rs (GLUCOTROL) 09-05 Oral, ity of tablet 10 22:30: 20:56 BIDAC, [place] mg 00 :00 First dose Medical on [facility] 07/06/20 at 1630, Until Discontinu ed, Routine NaCl 0.9% 2019-09 No 1000mL at 100 Uni vers (NS) IV 09-05 mL/hr, IV ity of infusion 19:15: 16:29 Infusion, [place] 1,000 mL 00 :50 CONTINUOUS Medic al , Starting [facility] 07/06/20 at 1315, Until 07/07/20 at 1029, Routine hydralAZINE 2019-09 Yes 20mg 20 mg, Univ ers (APRESOLINE 09-05 Slow IV ity o f ) injection 18:37: Push, [place] 20 mg 07 Q4HPRN, Medical Starting [facility] 07/06/20 at 1237, Until Discontinu ed, STAT, SBP > 180, DBP > 120
Ind ication: Hypertensi ve Emergency glucagon 2019-09 Yes 1mg 1 mg, Univers (GLUCAGEN 09-05 Intramuscu ity of DIAGNOSTIC 18:10: lar, PRN, [place] KIT) 32 Starting Medical injection 1 [facility] mg 07/06/20 at 1210, Until Discontinu ed, SAL, Blood Glucose < or = 70 mg/dL and patient is unable to swallow or has mental changes. dextrose 50 2019-09 Yes 25mL 25 mL, Univ ers % in water 09-05 Slow IV ity of (D50W) 18:10: Push, PRN, [place] injection 32 Starting Medica l 25 mL [facility] 07/06/20 at 1210, Until Discontinu ed, SAL, Blood Glucose < or = 70 mg/dL and patient is unable to swallow or has mental status changes. HYDROcodone 2019-09- No 1{tbl} 1 tablet, Univers -acetaminop 09-05 Oral, ity of hen (NORCO 18:10: 18:09 Q6HPRN, [place] 5) 5-325 mg 14 :14 Starting Medi vick tablet 1 [facility] tablet 07/06/20 at 1210, Until 07/08/20 at 1209, Routine, Pain (scale 4-6) acetaminoph 2019-09 Yes 650mg 650 mg, Un leatha en 09-05 Oral, ity of (TYLENOL) 18:10: Q6HPRN, [place] tablet 650 13 Starting Medic al mg [facility] 07/06/20 at 1210, Until Discontinu ed, Routine, Pain (scale 1-3) ampicillin- 2019-09- No 3000mg 3,000 mg, Univers sulbactam 09-05 IV ity of (UNASYN) 17:45: 17:23 [place] 3,000 mg in 00 :00 ONCE, 1 Medic al NaCl 0.9% dose, [facility] (NS) 100 mL 07/06/20 at MINI-BAG 1145, 100 mL
Reas on for Anti-Infec tive: Empiric Therapy for Suspected Infection< br>Empiric Therapy Site: Skin / Soft tissue
Duration of therapy: 72 hours Vital Signs Vital Name Observation Time Observation Value Comments Source Systolic blood 2020-12-23 17:01:00 169 mm[Hg] Univer [facility] Diastolic blood 2020-12-23 17:01:00 77 mm[Hg] [facility] [place] Heart rate 2020-12-23 17:01:00 59 /min [facility] Body temperature 2020-12-23 17:01:00 36.22 Anna [facility] Respiratory rate 2020-12-23 17:01:00 18 /min [facility] Oxygen saturation in 2020-12-23 17:01:00 99 /min [facility] Arterial blood by [facility] Pulse oximetry [place] Body height 2020-12-19 05:54:00 170.2 cm [facility] Body weight 2020-12-19 05:54:00 80.882 kg [facility] BMI 2020-12-19 05:54:00 27.93 kg/m2 [facility] Systolic blood 2020-07-09 17:11:00 122 mm[Hg] Univer sity [facility] Diastolic blood 2020-07-09 17:11:00 64 mm[Hg] [facility] Heart rate 2020-07-09 17:11:00 59 /min [facility] Body temperature 2020-07-09 17:11:00 36.56 Anna [facility] [place] [facility] Respiratory rate 2020-07-09 17:11:00 18 /min [facility] Oxygen saturation in 2020-07-09 17:11:00 97 /min [facility] Arterial blood by [facility] Pulse oximetry [place] Body weight 2020-07-09 10:47:00 80.468 kg [facility] BMI 2020-07-09 10:47:00 26.97 kg/m2 [facility] Body height 2020-07-06 18:12:00 172.7 cm [facility] Procedures Procedure Date / Time Performing Clinician Source Performed POCT GLUCOSE (AUTOMATED) 2020-12-23 17:06:00 Thierry Austin [facility] POCT GLUCOSE (AUTOMATED) 2020-12-23 12:58:00 Thierry Austin [facility] [place] [facility] BASIC METABOLIC PANEL (NA, 2020-12-23 10:15:00 [facility], CL, CO2, GLUCOSE, BUN, Medica l Branch CREATININE, CA) POCT GLUCOSE (AUTOMATED) 2020-12-23 01:17:00 Thierry Austin Un iversity [facility] POCT GLUCOSE (AUTOMATED) 2020-12-22 21:30:00 Thierry Austin Un iversity [facility] POCT GLUCOSE (AUTOMATED) 2020-12-22 16:41:00 Thierry Austin Un iversity [facility] POCT GLUCOSE (AUTOMATED) 2020-12-22 12:42:00 Thierry Austin Un iversity [facility] MAGNESIUM 2020-12-22 10:13:00 audrey [facility] TROPONIN I 2020-12-22 10:13:00 [facility] BASIC METABOLIC PANEL (NA, 2020-12-22 10:13:00 Lanre Hill [facility] K, CL, CO2, GLUCOSE, BUN, Medica l Branch CREATININE, CA) CBC WITH DIFF 2020-12-22 10:13:00 [place] o f [facility] N-TERMINAL PRO-BNP 2020-12-22 10:13:00 [facility] PO[facility]SE (AUTOMATED) 2020-12-22 08:28:00 [facility] ([facility]OMATED) 2020-12-22 00:54:00 [facility] FECES CULTURE 2020-12-22 00:21:00 Gadiel Jaramillo [facility] FECAL LEUKOCYTES 2020-12-22 00:21:00 Gadiel Jaramillo [facility] CLOSTRIDIUM DIFFICILE 2020-12-22 00:21:00 Gadiel Jaramillo [facility] TOXIN [facility] POCT GLUCOSE (AUTOMATED) 2020-12-21 21:26:00 [facility] POCT GLUCOSE (AUTOMATED) 2020-12-21 16:24:00 [facility] TROPONIN I 2020-12-21 15:21:00 Gadiel Jaramillo [facility] POCT GLUCOSE (AUTOMATED) 2020-12-21 13:28:00 [facility]ier[facility] POCT GLUCOSE (AUTOMATED) 2020-12-21 13:02:00 Thierry Austin [facility] CBC WITH DIFF 2020-12-21 09:42:00 Gadiel Jaramillo [facility] COMP. METABOLIC PANEL 2020-12-21 09:41:00 Lew Jacobson [facility] ([id number]) [facility] N-TERMINAL PRO-BNP 2020-12-21 09:41:00 Lew Jacobson [facility] VANCOMYCIN TROUGH 2020-12-21 02:27:00 [place], [facility] PO[facility] GLUCOSE (AUTOMATED) 2020-12-21 01:04:00 [facility] POCT GLUCOSE (AUTOMATED) 2020-12-20 21:32:00 [facility] POCT GLUCOSE (AUTOMATED) 2020-12-20 16:37:00 [facility]ier[facility] POCT GLUCOSE (AUTOMATED) 2020-12-20 12:49:00 [facility]ierry [facility] CYTO URINE 2020-12-20 12:47:00 [facility] 2020-12-20 10:28:00 Lew Jacobson [facility] MAGNESIUM 2020-12-20 10:28:00 Kavon ila [facility] RENAL PANEL 2020-12-20 10:28:00 [facility] TROPONIN I 2020-12-20 10:28:00 Kavon ila [facility] COMP. METABOLIC PANEL 2020-12-20 10:28:00 Lew Jacobson [facility] ([id number] INTACT PTH CALCIUM GROUP 2020-12-20 10:28:00 Ju Kasper [facility] CBC WITH DIFF 2020-12-20 10:28:00 Lew Jacobson [facility] N-TERMINAL PRO-BNP 2020-12-20 10:28:00 Lew Jacobson [facility] VITAMIN D, 25-OH 2020-12-20 10:28:00 Ju Kasper [facility] POCT GLUCOSE (AUTOMATED) 2020-12-20 01:25:00 Thierry [facility] TRANSTHORACIC ECHO (TTE) 2020-12-19 21:50:38 Lew Jacobson [facility] COMPLETE W/ CONTRAST Medical [facility] POCT GLUCOSE (AUTOMATED) 2020-12-19 21:21:00 Thierry [facility] NEUTROPHIL CYTOPLASMIC AB, 2020-12-19 17:01:00 Ju Kasper U [facility] IGG [facility] Branch GBM AB, IGG (DILIP) 2020-12-19 17:01:00 Ranjith [facility] ANTI-NUCLEAR ANTIBODY 2020-12-19 17:01:00 Ranjith [facility] SCREEN [facility] HEPATITIS B SURFACE 2020-12-19 17:01:00 Ranjith [facility] ANTIBODY [facility] HEPATITIS B SURFACE 2020-12-19 17:01:00 Ranjith [facility] ANTIGEN [facility] HCV ANTIBODY 2020-12-19 17:01:00 [facility] RPR (QUANTITATIVE) 2020-12-19 17:01:00 Ranjith [facility] KAPPA-LAMBDA QUANT. FLC 2020-12-19 17:01:00 [facility] WITH RATIO [facility] IMMUNOFIXATION, SERUM 2020-12-19 17:01:00 Ranjith [facility] HIV 1/2 AG-AB WITH REFLEX 2020-12-19 17:01:00 Ju Kasper [facility] TROPONIN I 2020-12-19 16:59:00 Lew Jacobson [facility] OCCULT (GUAIAC) BLOOD 2020-12-19 16:22:00 Lew Jacobson [facility] POCT GLUCOSE (AUTOMATED) 2020-12-19 16:21:00 Thierry Austin [facility] POTASSIUM, URINE RANDOM 2020-12-19 16:02:00 Ranjith [facility] INTACT PTH CALCIUM GROUP 2020-12-19 15:44:00 Jennifer Burnham [facility] RENAL ARTERY DUPLEX - BY 2020-12-19 14:23:00 Jennifer Burnham [facility] VASCULAR LAB [facility] RESPIRATORY PANEL BY PCR 2020-12-19 13:24:00 Lew Jacobson [facility] POCT GLUCOSE (AUTOMATED) 2020-12-19 12:46:00 Thierry Austin Un [facility] URIC ACID 2020-12-19 09:48:00 Lew Jacobson [facility] LIPASE 2020-12-19 09:48:00 Kavon ila [facility] SEDIMENTATION RATE 2020-12-19 09:48:00 Lew Jacobson [facility] IRON PANEL 2020-12-19 09:43:00 Lew Jacobson [facility] OSMOLALITY URINE 2020-12-19 09:42:00 Kavon [facility] VITAMIN B12, LEVEL 2020-12-19 09:42:00 Lew Jacobson [facility] PNEUMOCOCCAL ANTIGEN 2020-12-19 09:42:00 Lew Jacobson [facility] VITAMIN D, 25-OH 2020-12-19 09:42:00 Kavon ila [facility] SODIUM, URINE RANDOM 2020-12-19 09:42:00 Kavon ila [facility] PROTEIN CREAT RATIO URINE 2020-12-19 09:42:00 Lew Jacobson [facility] PROTHROMBIN TIME / INR 2020-12-19 09:40:00 [facility] URIC ACID 2020-12-19 09:36:00 Lew Jacobson [facility] MAGNESIUM 2020-12-19 09:36:00 Kavon ila [facility] OSMOLALITY, SERUM OR 2020-12-19 09:36:00 Kavon ila [facility] PLASMA [facility] TROPONIN I 2020-12-19 09:36:00 Kavon ila [facility] COMP. METABOLIC PANEL 2020-12-19 09:36:00 Lew Jacobson [facility] ([id number]) [facility] CBC WITH DIFF 2020-12-19 09:36:00 Kavon [facility] MYCOPLASMA PNEUMONIAE 2020-12-19 09:36:00 Lew Jacobson [facility] ANTIBODY, IGM Medical Branch N-TERMINAL PRO-BNP 2020-12-19 09:36:00 Lew Jacobson [facility] PROCALCITONIN 2020-12-19 09:36:00 Kavon [facility] CREATINE KINASE 2020-12-19 09:35:00 Jennifer Burnham [facility] URIC ACID 2020-12-19 09:35:00 Jennifer Burnham [facility] FERRITIN SERUM 2020-12-19 09:35:00 Kavon ila [facility] LIPID PANEL ([id number])(TOTAL 2020-12-19 09:35:00 Lew Jacobson [facility] CHOLESTEROL, [facility] TRIGLYCERIDES, HDL) ACUTE CARE VENOUS BLOOD 2020-12-19 09:30:00 Lew Jacobson [facility] GAS [facility] BLOOD CULTURE SCREEN 2020-12-19 05:13:00 Thierry Austin [facility] URINE CULTURE 2020-12-19 05:13:00 Thierry Austin [facility] EKG-12 LEAD 2020-12-19 04:05:52 Thierry Austin [facility] CT ABDOMEN PELVIS W 2020-12-19 03:06:48 Thierry Austin [facility] CONTRAST [facility] XR CHEST 1 VW 2020-12-18 23:46:56 Singer Toro [facility] LACTIC ACID WHOLE BLOOD 2020-12-18 23:43:00 Toro Jackson [facility] URINALYSIS 2020-12-18 23:41:00 Singer [facility] PHOSPHORUS 2020-12-18 23:39:00 Kavon [facility] CREATINE KINASE 2020-12-18 23:39:00 Kavon [facility] URIC ACID 2020-12-18 23:39:00 Kavon [facility] LIPASE 2020-12-18 23:39:00 Thierry Austin [facility] Medical [place] MAGNESIUM 2020-12-18 23:39:00 Lew Jacobson [facility] TROPONIN I 2020-12-18 23:39:00 [facility]inder [facility] THYROID STIMULATING 2020-12-18 23:39:00 Lew Jacobson [facility] HORMONE Medical Branch COMP. METABOLIC PANEL 2020-12-18 23:39:00 [facility] ([id number]) Medical Branch DIFF CONSULT 2020-12-18 23:39:00 Kavon [facility] INTERPRETATION [facility] CBC WITH DIFF 2020-12-18 23:39:00 Toro Jackson [facility] GLYCOSYLATED HEMOGLOBIN 2020-12-18 23:39:00 Kavon ila [facility] (A1C) Medical [place] N-TERMINAL PRO-BNP 2020-12-18 23:39:00 Toro Jackson [facility] COVID-19 (ID NOW RAPID 2020-12-18 23:39:00 Toro Jackson [facility] TESTING) Medical Branch LAB ONLY COVID 2020-12-18 23:39:00 Toro Jackson [facility] Branch NOTICE OF PRIVACY 2020-12-18 21:51:02 Doctor Coco, [facility] PRACTICES [place] [facility] [place] CONSENT/REFUSAL FOR 2020-12-18 21:48:26 Doctor Coco, [facility] DIAGNOSIS AND TREATMENT [place] [facility] [place] AUTHORIZATION FOR RELEASE 2020-08-22 06:01:00 Doctor Coco, [facility] ASSIGNMENT OF BENEFITS 2020-07-22 21:44:34 Doctor Coco, [facility] Name Medical [place] POCT GLUCOSE (AUTOMATED) 2020-07-09 22:39:00 Robert Rich [facility] POCT GLUCOSE (AUTOMATED) 2020-07-09 18:02:00 Robert Rich [facility] VANCOMYCIN TROUGH 2020-07-09 14:25:00 Donta Moody [facility] POCT GLUCOSE (AUTOMATED) 2020-07-09 13:50:00 Robert Rich [facility] C4 COMPLEMENT 2020-07-09 12:18:00 Jennifer Burnham [facility] BASIC METABOLIC PANEL (NA, 2020-07-09 12:18:00 Jennifer Burnham [facility] K, CL, CO2, GLUCOSE, BUN, Medica l Branch CREATININE, CA) HEPATITIS B SURFACE 2020-07-09 12:18:00 Jennifer Burnham [facility] ANTIBODY [facility] HEPATITIS B SURFACE 2020-07-09 12:18:00 Jennifer Burnham [facility] ANTIGEN [facility] HCV ANTIBODY 2020-07-09 12:18:00 Jennifer Burnham [facility] HBC ANTIBODY (IGM & IGG) 2020-07-09 12:18:00 Jennifer Burnham U [facility] POCT GLUCOSE (AUTOMATED) 2020-07-09 02:11:00 Robert Rich [facility] POCT GLUCOSE (AUTOMATED) 2020-07-08 22:41:00 Robert Rich [facility] SHELBY MULTI LEVEL BY 2020-07-08 18:47:34 Donta Moody [facility] VASCULAR LAB [facility] POCT GLUCOSE (AUTOMATED) 2020-07-08 18:01:00 Robert Rich [facility] INTACT PTH CALCIUM GROUP 2020-07-08 17:14:00 Jennifer Burnham [facility] POCT GLUCOSE (AUTOMATED) 2020-07-08 13:57:00 Robert Rich [facility] BASIC METABOLIC PANEL (NA, 2020-07-08 11:04:00 Jennifer Burnham [facility] K, CL, CO2, GLUCOSE, BUN, Medica l Branch CREATININE, CA) VITAMIN D, 25-OH 2020-07-08 11:04:00 Jennifer Burnham [facility] POCT GLUCOSE (AUTOMATED) 2020-07-07 22:48:00 Robert Rich [facility] PROTEIN CREAT RATIO URINE 2020-07-07 18:19:00 Jennifer Burnham [facility] RANDOM [facility] POCT GLUCOSE (AUTOMATED) 2020-07-07 17:49:00 Robert Rich [facility] US RETROPERITONEAL LIMITED 2020-07-07 15:32:47 Robert Rich [facility] BILATERAL DUPLEX SCAN OF 2020-07-07 15:19:06 Robert Rich [facility] ARTERY BY VASCULAR LAB Medical B ran POCT GLUCOSE (AUTOMATED) 2020-07-07 13:44:00 Robert Rich [facility] BASIC METABOLIC PANEL (NA, 2020-07-07 10:02:00 Robert Rich [facility] K, CL, CO2, GLUCOSE, BUN, Medica l Branch CREATININE, CA) CBC WITH DIFF 2020-07-07 10:02:00 Robert Rich o f [facility] POCT GLUCOSE (AUTOMATED) 2020-07-07 01:54:00 Robert Rich [facility] HB ECG ROUTINE & RHYTHM 2020-07-06 23:42:17 Robert Rich [facility] POCT GLUCOSE (AUTOMATED) 2020-07-06 22:29:00 Robert Rich [facility] CT FOOT RIGHT WO CONTRAST 2020-07-06 19:09:23 Robert Rich [facility] BLOOD CULTURE SCREEN 2020-07-06 16:41:00 Kasey Padgett [facility] COVID-19 (ID NOW RAPID 2020-07-06 16:41:00 Kasey Padgett [facility] TESTING) [facility] XR FOOT 3+ VW RIGHT 2020-07-06 15:57:44 [facility]y [facility] BLOOD CULTURE SCREEN 2020-07-06 15:54:00 Kasey Padgett [facility] HEPATIC FUNCTION PANEL 2020-07-06 15:54:00 [facility] ([id number] (ALB,T.PRO,BILI Medical Branch T,BU/BC,ALT,AST,ALK PHOS) BASIC METABOLIC PANEL (NA, 2020-07-06 15:54:00 Kasey Padgett [facility] K, CL, CO2, GLUCOSE, BUN, Medica l Branch CREATININE, CA) SEDIMENTATION RATE 2020-07-06 15:54:00 Kasey Padgett Univer sity [facility] CBC WITH DIFF 2020-07-06 15:54:00 Kasey Padgett Universit y [facility] GLYCOSYLATED HEMOGLOBIN 2020-07-06 15:54:00 Robert Rich [facility] (A1C) [facility] LACTIC ACID WHOLE BLOOD 2020-07-06 15:53:00 Kasey Padgett [facility] NOTICE OF PRIVACY 2020-07-06 15:29:44 Doctor Coco, [facility] PRACTICES [place] [facility] AGREEMENTS AUTHORIZATIONS 2020-07-06 05:01:00 Doctor Coco, [facility] AND IRREVOCABLE [place] [facility] ASSIGNMENTS (FORM 2000) Encounters Start End Encounter Admission Attending Care Care Encounter Source Date/Time Date/Time Type Type Clinicians Facility Department ID 2021-07-05 Emergency [facility] [id number] Univers 13:15:30 ity of [facility] 2020-12-24 2020-12-24 Transition Adrienne Brennan [id number] Univers 00:00:00 00:00:00 of Care Bina Hale [id number] [id number] [id number] [place] [address] Branch 2020-12-18 2020-12-23 Hospital Toro Jackson [facility] [id number] Univers 17:00:00 15:30:00 Encounter KatelinThierry ulrich [id number] ity of [place] [id number] [facility] [id number] Medical 081 Branch 2020-12-18 2020-12-18 Orders Doctor RAMIERZ [id number] Univers 00:00:00 00:00:00 Only UnassLYNETTE vance [id number] ity of [place] [facility] [id number] [place] [id number] [facility] [address] [place] 2020-08-22 2020-08-22 Orders Doctor JAMES [id number] Univers 00:00:00 00:00:00 Only Unassigned, LYNETTE [id number] ity of [place] [facility] [id number] [place] [id number] [address] 2020-07-22 2020-07-22 Sheet Hanger Jerry, Shane Lab Main [facility] 1.2.8 [id number] Univers 15:44:45 15:59:45 Visit Jennifer Burnham [id number] [id number] [facility] [id number] [address] 2020-07-22 2020-07-22 Outpatient R JOSE [facility] [id number] Univers 15:45:00 15:45:00 MANAF ity [facility] 2020-07-22 2020-07-22 Orders Doctor JAMES [id number] Univers 00:00:00 00:00:00 Only Unassigned, LYNETTE [id number] ity of [place] [facility] [id number] [place] [id number] [facility] 00[address] [place] 2020-07-10 2020-07-10 Transition Anu Krystynavandana [id number] Univers 00:00:00 00:00:00 of Care Bina Hael [id number] it y of [id number] [id number] [facility] 403 Branch 2020-07-06 2020-07-09 Hospital Kasey Padgett [facility] 1.2.84 [id number] [id number] Univers 09:37:00 17:31:00 Encounter Robert Rich [id number] [place] of [id number] [id number] [facility] 081 Branch 2020-07-06 2020-07-06 Emergency X [facility] ERT [id number] [employer] 09:37:00 09:37:00 KASEY aguirre [facility] Results Test Description Test Time Test Comments Results Result Comments Source IMMUNOFIXATION, SERUM 2020-12-23 18:39:54 Test Item Value Reference Range Interpretation Comme nts T PROTEIN (test code = 9812348743) 5.1 g/dL 6.3-8.2 L ALBUMIN (test code = 3740377073) 2.4 g/dL 3.5-5.0 L IgG (test code = 2802342977) 409 mg/dL 636-1600 L IgA (test code = 1173705717) 296 mg/dL 70-312 IgM (test code = 7279095701) 99 mg/dL 56-352 YANNICK INTERP (test code = 9304354167) Severe hypoalbuminemia and hypogammaglobulin, IgG.No monoclonal protein identified. No urine specimen submitted for testing. Reba Gongora MD ?12/22/2020 ?3:48 PM ? Lab Interpretation (test code = Abnormal 00280-9) [facility] GLUCOSE (AUTOMATED)2020-12-23 17:11:06 Test Item Value Reference Range Interpretation Comments POCT GLU (test code = 4928361715) 207 mg/dL 70-110 H Lab Interpretation (test code = Abnormal 51202-7) [facility] GLUCOSE (AUTOMATED)2020-12-23 13:38:44 Test Item Value Reference Range Interpretation Comments POCT GLU (test code = 5946088772) 181 mg/dL 70-110 H Lab Interpretation (test code = Abnormal 59208-8) [facility] (NA, K, CL, CO2, GLUCOSE, BUN, CREATININE, CA)2020-12-23 11:32:16 Test Item Value Reference Range Interpretation Comments NA (test code = 136 mmol/L 135-145 1903088014) K (test code = 3.7 mmol/L 3.5-5.0 5650079685) CL (test code = 110 mmol/L 98-108 H 6246186471) CO2 TOTAL (test code = 22 mmol/L 23-31 L 2383573693) AGAP (test code = 2-16 7424026013) BUN (test code = 46 mg/dL 7-23 H 6412697645) GLUCOSE (test code = 194 mg/dL 70-110 H 9682399572) CREATININE (test code = 2.79 mg/dL 0.60-1.25 H 5473323610) CALCIUM (test code = 7.4 mg/dL 8.6-10.6 L 7976652778) eGFR (test code = mL/min/1.73m2 3832021764) MILAD (test code = MILAD) Association of Glomerular Filtration Rate (GFR) and Staging of Kidney Disease* + --+ --+ ------+| GFR (mL/min/1.73 m2) ?| With Kidney Damage ?| ?Without Kidney Damage+ --------+ --------+ +| ?>90 ?| ?Stage one ?| ? Normal ?+ ---+ ---+ -------+| ?60-89 ?| ?Stage two ?| ? Decreased GFR ? + --+ --+ ------+| ?30-59 ?| ?Stage three ?| ? Stage three ? + --+ --+ ------+| ?15-29 ?| ?Stage four ? | ? Stage four ?+ ---+ ---+ -------+| ?<15 (or dialysis) ? ?| ?Stage five ? | ? Stage five ?+ ---+ ---+ -------+ *Each stage assumes the associated GFR level has been in effect for at least three months. ?Stages 1 to 5, with or without kidney disease, indicate chronic kidney disease. Notes: Determination of stages one and two (with eGFR >59mL/min/1.73 m2) requires estimation of kidney damage for at least three months as defined by structural or functional abnormalities of the kidney, manifested by either:Pathological abnormalities or Markers of kidney damage (including abnormalities in the composition of the blood or urine or abnormalities in imaging tests). Lab Interpretation Abnormal (test code = 57163-1) [facility]2020-12-23 05:17:31 Test Item Value Reference Range Interpretation Comments POCT GLU (test code = 6262251003) 129 mg/dL 70-110 H Lab Interpretation (test code = Abnormal 69612-9) [facility]GB [facility], IGG (DILIP)2020-12-23 05:06:05 Test Item Value Reference Range Interpretation Comments GBM IgG(NADIYA) (test 0 AU/mL 0-19 INTERPRET HUEY INFORMATION: code = 55287-1) GBM Ab, IgG by Multiplex Bead ?Assay ?19 AU /mL or Less ......... Negat huey ?20-25 AU/mL ......... ..... Equivocal ?26 A U/mL or Greater ...... Positive The presence of ant i-glomerular basement membra ne (GBM) antibodies by M ultiplex Bead Assay may aid in the diagnosis of Go odpasture syndrome. False positive results may occ ur due to reactivity agai nst other chains of type IV collagen. If Multiplex Be ad Assay is negative but th ere is a strong suspicio n for disease, renal biopsy may be indicated. A renal biopsy may also be essential in ?s uspected Goodpasture dis ease with renal involveme nt, allowing diagnostic conf irmation and assessment of r enal prognosis.Perfo rmed By: [facility] [address] [place], [place] [address]Lsvrhdz ory Director: Vangie Olivarez MD [facility] HospitalKappa-Lambda Quant. FLC with [id number] 03:34:01 Test Item Value Reference Range Interpretation Comments [place] Qnt Free Light 80.04 mg/L 3.30-19.40 H INTERPR ETIVE Chains (test code = INFORMAT ION: [place] 37341-1) Qnt Free Light Chains Undetect ed antigen excess is a rare event but cannot be exclu ded. Free light karlos n results should always be interpreted in conjunction wit h other clinical and laboratory find ings. Lambda Qnt Free Light 64.51 mg/L 5.71-26.30 H Chains (test code = 41326-0) [place]/Lambda Free Light 0.26-1.65 Perf ormed By: [facility] Chain Ratio (test code Labor [id number] = 96859-3) [place], [place] [address]Wutfgofmhw Director: Vangie Olivarez MD Lab Interpretation Abnormal (test code = 83813-6) [facility] HospitalNEUTR[facility]HIL CYTOPLASMIC AB, [id number] 22:56:55 Test Item Value Reference Range Interpretation Comments ANCA TITER (test code <1:20 See_Comment The AN CA IFA is <1:20; = 51123-5) therefore, no f urther testing will be performed.INTER PRETIVE INFORMATION: Anti-Neutrophil Cyto Ab, IgG Neutrophil Cytoplasmic Antibodies (C-A NCA = granular cytopl asmic staining, P-ANC A = perinuclear sta ining) are found in the se rum of over 90 percent of p atients with certain necroti zing systemic vascul itides, and usually in less than 5 percent of noelle ents with collagen vascul ar disease or arthritis.Pe rformed By: [facility] [place], [place] [address]Ttljcfa [facility] Director: Vangie Olivarez MD [Automated m essage] The system which ge nerated this result transmit flor reference range : <1:20. The reference range was not used to interpr et this result as salomón l/abnormal. [facility]2020-12-22 21:44:00 Test Item Value Reference Range Interpretation Comments POCT GLU (test code = 9886068081) 205 mg/dL 70-110 H Lab Interpretation (test code = Abnormal 02514-9) [facility] HospitalCYTO [id number] 19:59:31 Test Item Value Reference Range Interpretation Comments Case Report (test code = Non-Gynecologic [id number]) Cytology ?Case: [id number] ?Authorizing Provider: ?Ju Kasper MD ?Collected: ? 12/20/2020 0747 ?Ordering Location: ? ? [facility] Medicine Surgery Unit ?Received: ?12/20/2020 0806 ?Specimen: ? ?URINE, CLEAN CATCH ? Final Diagnosis (test f6mmeHTiEAPdx8lyRIKif code = 8414028674) GFuZzEwMzNcZnRuYmpcdW MxIHtccnRmMVxlcGljOTQ dEgcuzkLvKNBifHSxM7Mc jhtdZJgwIA8xFM7cxCnwj LHjsJFpOENaLeGuc0ifc6 88eZSlm3orISFZarlgxWz 3fYltD91kq1C5SbwfZ25g oGLgPCT7OVZwXECjnCSmZ RPqNEI0AUOwmIUjM9uwIC LfPJ1prnoeEHidPTnpOWC wzVK2ASLdzALcP5BeWLCc VGawHLTowbh2BqKbHd4ok GVyeTcyMFxwYXJkXHBsYW luXGJcZnMyMiBBLiAgVVJ JTkUsIFZPSURFRFxwYXJc b0ueIdHyl6togKt0OGsaW CAgLSBORUdBVElWRSBGT1 IgSElHSCBHUkFERSBVUk9 NVBKCDXLKPYZENoTWOt0Y LLDfC2KWHFXDNF8XYpKuF YifPGPsKX1hGHsNOtrKUO IPOHLDHJ4PHTJAUSIzUGB buukdhUUop1epdHz9UDaz BSzaHXO7t8sqgABzKGWqw GCgGzAdPOWdPIRrm4vvKO VmbGFuZzEwMzNcZnRuYmp biBOhZNPjGoRyb2skq140 vSWfc4vuLSUbTbY7jDUkE URrtRfhond2pEzkNsYwOA Hye7wcswSpIsNyOELvFUL xJZPevNEzB195XYNsMFnn l2prm7EiRZOsnQUgt4Y9S HQNESvlQjJjZ677b7jxn9 nmlnTfjWE7AIRcFHC7GBp eslAghgJ1DIjrrKNmTvG7 IDtccmVkMFxncmVlbjBcY dn6HFLrL364LHI6lBljx8 zcXEM9AODsSRTaZigtYv3 vwKDtV276MVPrOZDWZEXe hMm1HXEzmzFphlQktJVNi 939C401y3yzCFPenpFxdP uAkshre8puZ478LFOudGV ydzEyMjQwXHBhcGVyaDE1 XAWeQN2fagxoJHtuVQkiW JUgxzP0VFLbaPPdE9DwFU RaMW2qrbyfTKJ4EBbqXDK cDAG4YoGgBAByt9Pjkjv1 TrViwy2wzm00BRL6j6Auq ZepPKX9FSO6MbMlWx7rnV YnGFAzLF2qYbAafIHtELY wuj76bHglLOoawuZotL8j PjCnGNOnzLQyOJSoPP4tn EVwGYTvsO7evztdMYMaBe JkcmhlYWRccGdicmRyZm9 quAdaZHV1HNsnM6iyrD8h UuG5LKxzO8nlnN8zXAn1N TvzoVJ3NZGbmE6sXZ8iyk qvw8srVSzeDAsiUJAqmtT 1jnW4QUGevMHtP7WgjJ2h ZGSpJT4xbgmdf9cgFBC7A KgiMTHzJGL3KdLjMMWut9 Selxt8LnTnk0NgkNXxYVc mO73we660PKBodkJlQ8tr bGFpblxwbGFpblxmMFxmc pS8QNVrSONqFMgzRUErUQ ZzMjBcbGFuZzEwMzNcaGl jaFxmMVxkYmNoXGYxXGxv C0jiLeReP7LuCHQnPtGwc WKaJAgzrQT2JWStFDIso2 9jmHd2RVOazxtcg0SpZCI pyMSipHOloA4cftZwa9gc NJMgNKBoQBJzC2XuQDM8p BGpYGRrlRUhnJE3PH4wfc WlOX9tQJPvMunyihSjlRR sgaCcDQXrGDjns9ylDN5v ZYGvgWvqnD5fiCM4KNKpz 7vvrVVcuFIrf5msk2Bpxd FtZShzKSBtYXkgYXBwZWF dNU2oDKZcyXTkmoVsf1W6 ZilarQOtwdfpBydkmeH4O NuypguxUUVsGTliA8pdNz TkYGTelTueWzbug8UcKXM yXGZzMjhccGFyfX0= Final Diagnosis Comment s9tcxWYdMRFufRA8UADsC (test code = 6767023592) SYqi7hcu0IqgIJbtHDiID rznJFmfuHfco23dWT0zG8 9BZ1vFSNuPcG0KZYlyaO6 Foo1MAMaQRLbaWNqX421k 0iaq8fuaaTbsVN5aNgxTA TsnnxlAdB9RSvhEQMcvme rKCa8FEfpLXYfjUJ8XUHm mPLxJ5VoKCRsMF8twpj8H WM8NVaiORGsCiM9DAWksS ClAUNiqRioJWpxg159XEL 8RyBhQSRwvpLic0slJeSk r4xgcTz1XZenoCVdlutaw zNlVGOoZHRbmoIjnO60IU JlbmlnbiBhcHBlYXJpbmc gdXJvdGhlbGlhbCBjZWxs fwDzBU3ebLJbEAsjlAdei 8K6VJ4ugZPtH8VkoWQmKR 6uUD3ozXYpr8MpsDdyUpS UaGVyZSBhcmUgYWxzbyBy PEQaShgds8ApY5RtoIKvi 0Dooi9zAw1jfWTxiHppLZ 50IGNlbGxzIGFyZSBpZGV udGlmaWVkLlxwYXJ9 Clinical Information Hematuria. 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) Gross Description (test z5femHBeRXUyrPLQWZSaG code = 0950124512) qmnbxRnEWDzoOOtH9Wyea agMJvsFN5mKK9xmJhztMQ duULdWA5CWNRyPzTeMTFm cGVydzEyMjQwXHBhcGVya ET6SVNjNN1dolonVSdpVG dvMYNmpmC2APRigOFcZ4G aPMOiRZ7vzxzyISD9FGdg sL6fvnCQBfluYi9axWDpl HtcZjFcZmNoYXJzZXQwXG OwtZyrSMHpVVj8rC2NJsp gGBS1EBENSvacAHPvFI1V f1zvIBAnbGBjUPZ7SWzmp AKzQGDqLSOwLIu5GOTlCQ xnyVReIB3kgWspKmzfcTw bo6JinFJdRJvkMEGgKFRs ODxwXRFbMJ0SEgWuSOkqJ Vk7GMXeVIm0WIj5VT5EOa FpPPJeKFZ6HWKqYFXqYTq 2POeuAC5DWRVvEFT6TpYa ANIaDHK8IxtuCPo6YBOcG FxmIEFyaWFsIFxcZnMgMT UaNDmabGVqIG3iwDqqwQC pblxmczIwXHBhciANClxw bGFpblxlcGljTmVzdERvY zEgDQpcbHRycGFyXGxpbj BccmluMCANClxsdHJjaFx mczIyIEExLiAgVVJJTkUs IFZPSURFRFxwYXIgDQpSZ WNlaXZlZCBmcmVzaCBpcy UbFLAxG4BngeMuMrL4GIt cn9tmVak8lAObcUHrTL8O UHJlcGFyZWQgMiBzbGlkZ XMgKFBhcGFuaWNvbGFvdS RnrQApzjAqWmFqSHH4dF6 ncYzfEOIuYWWdtzL2tX8s UTTtKYJxMYHppQ8isvZoI FXeSCBxnwT8mK4lPPhkYA BdXIrhdOqmoT3eSVYwM34 ru5QPo5VwIEYgHZjdd0df zVwqf6MqbBIyGHzySONjn GTmKLzklV6aPlIjb9gdrP g7HJbzcoR8PYAocn2RAse umG7pHnFmt8kdeAf8FNSY KmkcsyP6y8fynRvxi1Oue ZYpFJ9EHq1= Embedded Images (test code = 5099160053) [facility]ANTI[facility]NUCLEAR ANTIBODY [id number] 19:30:27 Test Item Value Reference Range Interpretation Comments NIXON (test code = Negative Negative 6610223124) MILAD (test code = MILAD) Negative - No Anti-Nuclear Antibodies detected by IFA.Positive - NIXON IFA screen performed with a 1:80 dilution in adults and a 1:40 dilution in pediatrics. Any NIXON "Positive" will have titer performed and reported separately.Negative - No Anti-Nuclear Antibodies detected by IFA.Positive - NIXON IFA screen performed with a 1:80 dilution in adults and a 1:40 dilution in pediatrics. Any NIXON "Positive" will have titer performed and reported separately. Lab Interpretation (test Normal code = 82801-3) [facility] GLUCOSE (AUTOMATED)2020-12-22 17:17:25 Test Item Value Reference Range Interpretation Comments POCT GLU (test code = 6405863422) 223 mg/dL 70-110 H Lab Interpretation (test code = Abnormal 50614-8) [facility]QUANTITATIVE)2020-12-22 16:02:58 Test Item Value Reference Range Interpretation Comments RPR (Quantitative) (test code = Nonreactive Nonreactive 43771-7) Lab Interpretation (test code = Normal 31185-3) [facility] HospitalVITAMIN D, [id number] 14:42:43 Test Item Value Reference Range Interpretation Comments VIT D 25OH (test code = <13 25-80 L 92900-3) MILAD (test code = MILAD) Deficiency: <20 ng/mLInsufficiency: 20-24 ng/mLOptimal: 25-80 ng/mL Lab Interpretation (test Abnormal code = 06641-2) [facility] GLUCOSE (AUTOMATED)2020-12-22 12:55:39 Test Item Value Reference Range Interpretation Comments POCT GLU (test code = 2607613104) 95 mg/dL 70-110 Lab Interpretation (test code = Normal 58340-2) [facility] HospitalTROPONIN [id number] 11:19:40 Test Item Value Reference Range Interpretation Comments TROPONIN I (test 0.119 ng/mL See_Comment H [Automated code = 1678792803) message] The system which generated this result transmitted reference range : <=0.034. The reference range was not used to interpret this result as normal/abnormal . MILAD (test code = Equal or Less than MILAD) 0.034 ng/ml---Normal ?Note: Cardiac troponin begins to rise 3-4 hours after the onset of ischemia. Repeat in 4-6 hours if the sample was drawn within 3-4 hours of the onset of the symptom and found normal. Between 0.035 and 0.120 ng/mL--- Borderline. Questionable myocardial injury or necrosis ? ?Note: Serial measurement may be necessary to confirm or exclude the diagnosis of myocardial injury or necrosis; Clinical correlation (symptoms, EKGs, imaging studies, and others) required; Repeat in 4-6 hours if clinically indicated. ? Equal or Higher than 0.121 ng/mL---Abnormal. Myocardial Injury or Necrosis Likely ? Biotin has been reported to cause a negative bias, interpret results relative to patient's use of biotin. ? Lab Interpretation Abnormal (test code = 25400-0) [facility]ABOLIC PANEL (NA, K, CL, CO2, GLUCOSE, BUN, CREATININE, CA)2020-12-22 11:18:18 Test Item Value Reference Range Interpretation Comments NA (test code = 138 mmol/L 135-145 2311174973) K (test code = 3.6 mmol/L 3.5-5.0 3032432335) CL (test code = 109 mmol/L 98-108 H 6724144806) CO2 TOTAL (test code = 25 mmol/L 23-31 9655521207) AGAP (test code = 2-16 1261053928) BUN (test code = 37 mg/dL 7-23 H 4391997137) GLUCOSE (test code = 92 mg/dL 70-110 5422325949) CREATININE (test code = 2.66 mg/dL 0.60-1.25 H 1377087379) CALCIUM (test code = 7.9 mg/dL 8.6-10.6 L 1241651491) eGFR (test code = mL/min/1.73m2 3308090278) MILAD (test code = MILAD) Association of Glomerular Filtration Rate (GFR) and Staging of Kidney Disease* + --+ --+ ------+| GFR (mL/min/1.73 m2) ?| With Kidney Damage ?| ?Without Kidney Damage+ --------+ --------+ +| ?>90 ?| ?Stage one ?| ? Normal ?+ ---+ ---+ -------+| ?60-89 ?| ?Stage two ?| ? Decreased GFR ? + --+ --+ ------+| ?30-59 ?| ?Stage three ?| ? Stage three ? + --+ --+ ------+| ?15-29 ?| ?Stage four ? | ? Stage four ?+ ---+ ---+ -------+| ?<15 (or dialysis) ? ?| ?Stage five ? | ? Stage five ?+ ---+ ---+ -------+ *Each stage assumes the associated GFR level has been in effect for at least three months. ?Stages 1 to 5, with or without kidney disease, indicate chronic kidney disease. Notes: Determination of stages one and two (with eGFR >59mL/min/1.73 m2) requires estimation of kidney damage for at least three months as defined by structural or functional abnormalities of the kidney, manifested by either:Pathological abnormalities or Markers of kidney damage (including abnormalities in the composition of the blood or urine or abnormalities in imaging tests). Lab Interpretation Abnormal (test code = 89521-8) [facility] HospitalMAGNESIUM2021-[facility] 11:18:03 Test Item Value Reference Range Interpretation Comments MAGNESIUM (test code = 7217071580) 1.9 mg/dL 1.7-2.4 Lab Interpretation (test code = Normal 52142-7) [facility] HospitalN-TERMINAL [id number] 11:17:48 Test Item Value Reference Range Interpretation Comments NT-proBNP (test code 2960 pg/mL See_Comment H [Autom ated = 9800980365) message] The system which generated this result transmitted reference range : <=125. The reference range was not used to interpret this result as normal/abnormal . MILAD (test code = MILAD) Biotin has been reported to cause a negative bias, interpret results relative to patient's use of biotin. Lab Interpretation Abnormal (test code = 12467-8) [facility] WITH [id number] 10:41:54 Test Item Value Reference Range Interpretation Comments WBC (test code = See_Comment [Automated 6690-2) message] The sy stem which generated this result transmitted reference range : 4.20 - 10.70 10*3/?L. The reference range was not used to interpret this result as normal/abnormal . RBC (test code = See_Comment L [Automated 789-8) message] The sy stem which generated this result transmitted reference range : 4.26 - 5.52 10*6/?L. The reference range was not used to interpret this result as normal/abnormal . HGB (test code = 10.1 g/dL 12.2-16.4 L 718-7) HCT (test code = 30.9 % 38.4-49.3 L 4544-3) MCV (test code = 93.4 fL 81.7-95.6 787-2) MCH (test code = 30.5 pg 26.1-32.7 785-6) MCHC (test code = 32.7 g/dL 31.2-35.0 786-4) RDW-SD (test code = 44.0 fL 38.5-51.6 90766-2) RDW-CV (test code = 12.9 % 12.1-15.4 788-0) PLT (test code = See_Comment [Automated 777-3) message] The sy stem which generated this result transmitted reference range : 150 - 328 10*3/ ?L. The reference r taye was not used to interpret this result as normal/abnormal . MPV (test code = 10.2 fL 9.8-13.0 39076-7) NRBC/100 WBC (test See_Comment [Automat ed code = 6848935733) message] The system which generated this result transmitted reference range : 0.0 - 10.0 /100 WBCs. The refer ence range was not u sed to interpret th is result as normal/abnormal . NRBC x10^3 (test code <0.01 See_Comment [Auto mated = 3567092836) message] The s ystem which generated this result transmitted reference range : 10*3/?L. The reference range was not used to interpret this result as normal/abnormal . GRAN MAT (NEUT) % 57.3 % (test code = 770-8) IMM GRAN % (test code 0.90 % = 8446247854) LYMPH % (test code = 28.0 % 736-9) MONO % (test code = 9.8 % 5905-5) EOS % (test code = 3.4 % 713-8) BASO % (test code = 0.6 % 706-2) GRAN MAT x10^3(ANC) 4.82 10*3/uL 1.99-6.95 (test code = 8329640762) IMM GRAN x10^3 (test 0.08 10*3/uL 0.00-0.06 H code = 6473842689) LYMPH x10^3 (test code 2.36 10*3/uL 1.09-3.23 = 731-0) MONO x10^3 (test code 0.83 10*3/uL 0.36-1.02 = 742-7) EOS x10^3 (test code = 0.29 10*3/uL 0.06-0.53 711-2) BASO x10^3 (test code 0.05 10*3/uL 0.01-0.09 = 704-7) Lab Interpretation Abnormal (test code = 08807-8) [facility] GLUCOSE (AUTOMATED)2020-12-22 10:20:26 Test Item Value Reference Range Interpretation Comments POCT GLU (test code = 5532417508) 111 mg/dL 70-110 H Lab Interpretation (test code = Abnormal 69200-7) [facility] GLUCOSE (AUTOMATED)2020-12-22 10:20:26 Test Item Value Reference Range Interpretation Comments POCT GLU (test code = 0158947063) 264 mg/dL 70-110 H Lab Interpretation (test code = Abnormal 69702-9) [facility] GLUCOSE (AUTOMATED)2020-12-22 10:20:26 Test Item Value Reference Range Interpretation Comments POCT GLU (test code = 3043457645) 136 mg/dL 70-110 H Lab Interpretation (test code = Abnormal 47401-0) [facility] 08:46:30 Test Item Value Reference Range Interpretation Comments POCT GLU (test code = 6851130953) 99 mg/dL 70-110 Lab Interpretation (test code = Normal 60687-7) [facility] HospitalFECAL [id number] 08:09:55 Test Item Value Reference Range Interpretation Comments Fecal Leukocytes (test code = Negative Negative 9690621440) Lab Interpretation (test code = Normal 20670-4) [facility] ONLY COVID [id number] 03:36:15COVID DMT InterpretationInterpretation/Recommendations: Molecular NAAT Tests for Active Infection with the SARS-CoV-2 Virus: The patient has currently tested negative for the SARS-CoV-2 virus that causes COVID-19 illness. This most likely indicates that the patient does not have an active infection with the SARS-CoV-2 virus. However, infection is not completely ruled out as the false negative rate for molecular NAAT testing using a nasopharyngeal sample can be up to 30%, mostly dependent on the timing of sample collection in relation to illness onset and any deficiencies in sampling techniques. If the patient has symptoms concerning for COVID-19 illness, a repeat NAAT test (PCR, Rapid ID Now, etc.) should be performed, at which time the SARS-CoV-2 virus - if present - may have reached a detectable viral load (usually peaking by the end of the first week of symptoms). Tests for IgM and/or IgG Antibodies to the SARS-CoV-2 Virus: If the patient develops COVID-19 illness in the future, testing for IgM and IgG antibodies approximately 3 weeks after illness onset will likely indicate if the patient has produced antibodies to the SARS-CoV-2 virus. However, some patients may take longer to develop detectable antibodies, while some patients who were infected with SARS-CoV-2 may never develop antibodies. While antibodies to SARS-CoV-2 may provide some degree of immunity, at this time the strength and duration of the antibody response is unknown. Interpretation Result Comments:These interpretation comments are based upon all COVID-19 testing the patient has had at [facility], including molecular NAAT testing (more commonly known as PCR testing and Rapid ID Now testing) and antibody testing. It does not take into account any testingthat a patient has had outside of the [facility] medical record. [facility] LABORATORY SERVICESCOVID PlgxotvUQTB-WiL-7 Rapid ID NOW (no units) ? ? Date ? Value ? 12/18/2020 ? Not Detected ? ? ? 07/06/2020 ? Not Detected ? [facility] SERVICESUn[facility] CLOSTRIDIUM DIFFICILE [id number] 03:23:09 Test Item Value Reference Range Interpretation Comments Clostridioides (Clostridium) Negative Negative difficile (test code = 02004-6) Lab Interpretation (test code = Normal 42326-9) [facility]2020-12-22 01:12:06 Test Item Value Reference Range Interpretation Comments POCT GLU (test code = 9915447241) 144 mg/dL 70-110 H Lab Interpretation (test code = Abnormal 70995-3) [facility] HospitalMYCOPLASMA PNEUMONIAE ANTIBODY, [id number] 19:47:10 Test Item Value Reference Range Interpretation Comments Mycoplasma IGM (test 0.78 U/L See_Comment H INTERPR ETIVE code = 5256-3) INFORMATION: ?Mycoplasma pne umoniae Ab, IgM ?0.76 U /L or less .......... Negative: No clinically ?significant am ount of ?M. pneum oniae IgM antibody ?detected. ?0.7 7 - 0.95 U/L ...... ..... Low Positive: M . pneumoniae- ?specific IgM presumptively ?detected. Scarlet ection of a ?foll ow-up sample in 1-2 ?weeks is recom mended to ?assure reactivity. ?0. 96 U/L or greater .... ... Positive: Highl y significant ?amount of M. pneumoniae- ?specific IgM a ntibody ?detected . However, low le vels ?of IgM ant ibodies may ?occasionally p ersist for more ? than 12 months post-infection. Perform ed By: [address] [address]Cqctkklavh Director: Vangie Olivarez MD [Aut omated message] The sy stem which generated this result transmit flor reference range : <=0.76. The ref erence range was not u sed to interpret this result as normal/abnor mal. Lab Interpretation Abnormal (test code = 02016-1) [facility] HospitalTRMIAHN [id number] 15:57:04 Test Item Value Reference Range Interpretation Comments TROPONIN I (test 0.131 ng/mL See_Comment H [Automated code = [id number]) message] The system which generated this result transmitted reference range : <=0.034. The reference range was not used to interpret this result as normal/abnormal . MILAD (test code = Equal or Less than MILAD) 0.034 ng/ml---Normal ?Note: Cardiac troponin begins to rise 3-4 hours after the onset of ischemia. Repeat in 4-6 hours if the sample was drawn within 3-4 hours of the onset of the symptom and found normal. Between 0.035 and 0.120 ng/mL--- Borderline. Questionable myocardial injury or necrosis ? ?Note: Serial measurement may be necessary to confirm or exclude the diagnosis of myocardial injury or necrosis; Clinical correlation (symptoms, EKGs, imaging studies, and others) required; Repeat in 4-6 hours if clinically indicated. ? Equal or Higher than 0.121 ng/mL---Abnormal. Myocardial Injury or Necrosis Likely ? Biotin has been reported to cause a negative bias, interpret results relative to patient's use of biotin. ? Lab Interpretation Abnormal (test code = 38494-6) [facility]2020-12-21 13:04:56 Test Item Value Reference Range Interpretation Comments POCT GLU (test code = 6343172161) 72 mg/dL 70-110 Lab Interpretation (test code = Normal 86998-9) [id number] 10:36:31 Test Item Value Reference Range Interpretation Comments NT-proBNP (test code 2710 pg/mL See_Comment H [Autom ated = 6568747165) message] The system which generated this result transmitted reference range : <=125. The reference range was not used to interpret this result as normal/abnormal . MILAD (test code = MILAD) Biotin has been reported to cause a negative bias, interpret results relative to patient's use of biotin. Lab Interpretation Abnormal (test code = 87031-4) [facility]OLIC [facility] (62350)2020-12-21 10:30:53 Test Item Value Reference Range Interpretation Comments NA (test code = 139 mmol/L 135-145 2456047932) K (test code = 3.7 mmol/L 3.5-5.0 3581672439) CL (test code = 110 mmol/L 98-108 H 1330746097) CO2 TOTAL (test code = 23 mmol/L 23-31 3782511151) AGAP (test code = 2-16 2019487845) BUN (test code = 32 mg/dL 7-23 H 6970577433) GLUCOSE (test code = 73 mg/dL 70-110 0094918745) CREATININE (test code = 2.88 mg/dL 0.60-1.25 H 4465022533) TOTAL BILI (test code = 0.3 mg/dL 0.1-1.6 2891022856) CALCIUM (test code = 8.0 mg/dL 8.6-10.6 L 8128203941) T PROTEIN (test code = 5.9 g/dL 6.3-8.2 L 9649207774) ALBUMIN (test code = 3.1 g/dL 3.5-5.0 L 8939329934) ALK PHOS (test code = 113 U/L 34-122 1417964659) ALTv (test code = 61 U/L 5-50 H 1742-6) AST(SGOT) (test code = 64 U/L 13-40 H 0868029403) eGFR (test code = mL/min/1.73m2 8076074241) MILAD (test code = MILAD) Association of Glomerular Filtration Rate (GFR) and Staging of Kidney Disease* + --+ --+ ------+| GFR (mL/min/1.73 m2) ?| With Kidney Damage ?| ?Without Kidney Damage+ --------+ --------+ +| ?>90 ?| ?Stage one ?| ? Normal ?+ ---+ ---+ -------+| ?60-89 ?| ?Stage two ?| ? Decreased GFR ? + --+ --+ ------+| ?30-59 ?| ?Stage three ?| ? Stage three ? + --+ --+ ------+| ?15-29 ?| ?Stage four ? | ? Stage four ?+ ---+ ---+ -------+| ?<15 (or dialysis) ? ?| ?Stage five ? | ? Stage five ?+ ---+ ---+ -------+ *Each stage assumes the associated GFR level has been in effect for at least three months. ?Stages 1 to 5, with or without kidney disease, indicate chronic kidney disease. Notes: Determination of stages one and two (with eGFR >59mL/min/1.73 m2) requires estimation of kidney damage for at least three months as defined by structural or functional abnormalities of the kidney, manifested by either:Pathological abnormalities or Markers of kidney damage (including abnormalities in the composition of the blood or urine or abnormalities in imaging tests). Lab Interpretation Abnormal (test code = 82790-8) [facility] WITH [id number] 10:21:10 Test Item Value Reference Range Interpretation Comments WBC (test code = See_Comment [Automated 6690-2) message] The sy stem which generated this result transmitted reference range : 4.20 - 10.70 10*3/?L. The reference range was not used to interpret this result as normal/abnormal . RBC (test code = See_Comment L [Automated 789-8) message] The sy stem which generated this result transmitted reference range : 4.26 - 5.52 10*6/?L. The reference range was not used to interpret this result as normal/abnormal . HGB (test code = 11.3 g/dL 12.2-16.4 L 718-7) HCT (test code = 33.8 % 38.4-49.3 L 4544-3) MCV (test code = 93.1 fL 81.7-95.6 787-2) MCH (test code = 31.1 pg 26.1-32.7 785-6) MCHC (test code = 33.4 g/dL 31.2-35.0 786-4) RDW-SD (test code = 43.6 fL 38.5-51.6 38657-8) RDW-CV (test code = 12.7 % 12.1-15.4 788-0) PLT (test code = See_Comment [Automated 777-3) message] The sy stem which generated this result transmitted reference range : 150 - 328 10*3/ ?L. The reference r taye was not used to interpret this result as normal/abnormal . MPV (test code = 10.5 fL 9.8-13.0 46109-2) NRBC/100 WBC (test See_Comment [Automat ed code = 6586122577) message] The system which generated this result transmitted reference range : 0.0 - 10.0 /100 WBCs. The refer ence range was not u sed to interpret th is result as normal/abnormal . NRBC x10^3 (test code <0.01 See_Comment [Auto mated = 9923084542) message] The s ystem which generated this result transmitted reference range : 10*3/?L. The reference range was not used to interpret this result as normal/abnormal . GRAN MAT (NEUT) % 67.1 % (test code = 770-8) IMM GRAN % (test code 0.80 % = 7879630069) LYMPH % (test code = 20.7 % 736-9) MONO % (test code = 8.5 % 5905-5) EOS % (test code = 2.4 % 713-8) BASO % (test code = 0.5 % 706-2) GRAN MAT x10^3(ANC) 6.53 10*3/uL 1.99-6.95 (test code = 8188847874) IMM GRAN x10^3 (test 0.08 10*3/uL 0.00-0.06 H code = 0810018479) LYMPH x10^3 (test code 2.01 10*3/uL 1.09-3.23 = 731-0) MONO x10^3 (test code 0.83 10*3/uL 0.36-1.02 = 742-7) EOS x10^3 (test code = 0.23 10*3/uL 0.06-0.53 711-2) BASO x10^3 (test code 0.05 10*3/uL 0.01-0.09 = 704-7) Lab Interpretation Abnormal (test code = 54460-6) [facility] - Draw more than 60 minutes before the 2015 dose.2020-12-21 04:03:35 Test Item Value Reference Range Interpretation Comments VANCO TROUGH (test code 11.2 ug/mL 10.0-20.0 = 4374812247) MILAD (test code = MILAD) Toxic Range: ?>20 ug/mL 15-20 ug/mL is recommended for severe infection or when Vancomycin JENNI is greater than or equal to 2. Lab Interpretation (test Normal code = 40842-5) [facility]2020-12-21 01:18:12 Test Item Value Reference Range Interpretation Comments POCT GLU (test code = 6380053678) 120 mg/dL 70-110 H Lab Interpretation (test code = Abnormal 90278-1) [facility] GLUCOSE (AUTOMATED)2020-12-20 21:53:29 Test Item Value Reference Range Interpretation Comments POCT GLU (test code = 9134038798) 91 mg/dL 70-110 Lab Interpretation (test code = Normal 92394-2) [facility] PTH CALCIUM [id number] 18:56:46 Test Item Value Reference Range Interpretation Comments PTH-INTACT (test code = 78.8 pg/mL 12.0-88.0 6163833234) PTH-CA Interpretation Furthe r clinical (test code = 3447128062) yosvany a needed for interpretation. CALCIUM (test code = 7.4 mg/dL 8.6-10.6 L 8961756811) Lab Interpretation (test Abnormal code = 05535-4) [facility]UR[facility] [id number] 18:36:28 Test Item Value Reference Range Interpretation Comments URINE CULTURE (test < 10,000 CFU/mL mixed code = 630-4) aerobic organisms - suggests endogenous microbial contamination [facility] GLUCOSE (AUTOMATED)2020-12-20 16:59:51 Test Item Value Reference Range Interpretation Comments POCT GLU (test code = 8795525456) 205 mg/dL 70-110 H Lab Interpretation (test code = Abnormal 21275-8) [facility] PTH CALCIUM [id number] 16:05:46 Test Item Value Reference Range Interpretation Comments PTH-INTACT (test code = 93.7 pg/mL 12.0-88.0 H 6212973846) PTH-CA Interpretation Furthe r clinical (test code = 9637920116) yosvany a needed for interpretation. CALCIUM (test code = 7.4 mg/dL 8.6-10.6 L 5916934292) Lab Interpretation (test Abnormal code = 09745-9) [facility]GUAIAC[facility] [id number] 15:34:59 Test Item Value Reference Range Interpretation Comments Occult (guaiac) Blood (test code = Negative Negative 2335-8) Lab Interpretation (test code = Normal 43550-7) [facility] GLUCOSE (AUTOMATED)2020-12-20 13:24:58 Test Item Value Reference Range Interpretation Comments POCT GLU (test code = 9815201164) 110 mg/dL 70-110 Lab Interpretation (test code = Normal 03931-9) [facility] HospitalTROPONIN [id number] 13:12:25 Test Item Value Reference Range Interpretation Comments TROPONIN I (test 0.144 ng/mL See_Comment H [Automated code = 0604993559) message] The system which generated this result transmitted reference range : <=0.034. The reference range was not used to interpret this result as normal/abnormal . MILAD (test code = Equal or Less than MILAD) 0.034 ng/ml---Normal ?Note: Cardiac troponin begins to rise 3-4 hours after the onset of ischemia. Repeat in 4-6 hours if the sample was drawn within 3-4 hours of the onset of the symptom and found normal. Between 0.035 and 0.120 ng/mL--- Borderline. Questionable myocardial injury or necrosis ? ?Note: Serial measurement may be necessary to confirm or exclude the diagnosis of myocardial injury or necrosis; Clinical correlation (symptoms, EKGs, imaging studies, and others) required; Repeat in 4-6 hours if clinically indicated. ? Equal or Higher than 0.121 ng/mL---Abnormal. Myocardial Injury or Necrosis Likely ? Biotin has been reported to cause a negative bias, interpret results relative to patient's use of biotin. ? Lab Interpretation Abnormal (test code = 55351-1) [facility] [id number] 13:09:07 Test Item Value Reference Range Interpretation Comments NT-proBNP (test code 4140 pg/mL See_Comment H [Autom ated = 3313126483) message] The system which generated this result transmitted reference range : <=125. The reference range was not used to interpret this result as normal/abnormal . MILAD (test code = IMLAD) Biotin has been reported to cause a negative bias, interpret results relative to patient's use of biotin. Lab Interpretation Abnormal (test code = 67438-9) [facility]MAGNESIUM2021-04-17 13:03:46 Test Item Value Reference Range Interpretation Comments MAGNESIUM (test code = 3493542814) 2.0 mg/dL 1.7-2.4 Lab Interpretation (test code = Normal 36558-3) [facility]. METABOLIC PANEL (81556)2020-12-20 13:03:45 Test Item Value Reference Range Interpretation Comments NA (test code = 134 mmol/L 135-145 L 4262813160) K (test code = 3.6 mmol/L 3.5-5.0 9295091067) CL (test code = 108 mmol/L 98-108 2930830434) CO2 TOTAL (test code = 23 mmol/L 23-31 6090228678) AGAP (test code = 2-16 0415628749) BUN (test code = 30 mg/dL 7-23 H 3780317431) GLUCOSE (test code = 118 mg/dL 70-110 H 3969529852) CREATININE (test code = 2.53 mg/dL 0.60-1.25 H 2980424817) TOTAL BILI (test code = 0.2 mg/dL 0.1-1.1 7152569963) CALCIUM (test code = 7.4 mg/dL 8.6-10.6 L 5211570966) T PROTEIN (test code = 5.0 g/dL 6.3-8.2 L 5065813544) ALBUMIN (test code = 2.4 g/dL 3.5-5.0 L 1578856802) ALK PHOS (test code = 81 U/L 34-122 1511837129) ALTv (test code = 19 U/L 5-50 2-6) AST(SGOT) (test code = 34 U/L 13-40 8378021871) eGFR (test code = mL/min/1.73m2 5892468936) MILAD (test code = MILAD) Association of Glomerular Filtration Rate (GFR) and Staging of Kidney Disease* + --+ --+ ------+| GFR (mL/min/1.73 m2) ?| With Kidney Damage ?| ?Without Kidney Damage+ --------+ --------+ +| ?>90 ?| ?Stage one ?| ? Normal ?+ ---+ ---+ -------+| ?60-89 ?| ?Stage two ?| ? Decreased GFR ? + --+ --+ ------+| ?30-59 ?| ?Stage three ?| ? Stage three ? + --+ --+ ------+| ?15-29 ?| ?Stage four ? | ? Stage four ?+ ---+ ---+ -------+| ?<15 (or dialysis) ? ?| ?Stage five ? | ? Stage five ?+ ---+ ---+ -------+ *Each stage assumes the associated GFR level has been in effect for at least three months. ?Stages 1 to 5, with or without kidney disease, indicate chronic kidney disease. Notes: Determination of stages one and two (with eGFR >59mL/min/1.73 m2) requires estimation of kidney damage for at least three months as defined by structural or functional abnormalities of the kidney, manifested by either:Pathological abnormalities or Markers of kidney damage (including abnormalities in the composition of the blood or urine or abnormalities in imaging tests). Lab Interpretation Abnormal (test code = 16531-9) [facility] HospitalRENAL [id number] 13:03:45 Test Item Value Reference Range Interpretation Comments ALBUMIN (test code = 2.4 g/dL 3.5-5.0 L 9658514467) CALCIUM (test code = 7.4 mg/dL 8.6-10.6 L 6425492500) CO2 TOTAL (test code = 23 mmol/L 23-31 2439985153) CREATININE (test code = 2.53 mg/dL 0.60-1.25 H 6895429486) GLUCOSE (test code = 118 mg/dL 70-110 H 8809355665) K (test code = 3.6 mmol/L 3.5-5.0 5892579890) NA (test code = 134 mmol/L 135-145 L 2411453289) BUN (test code = 30 mg/dL 7-23 H 1978336838) PHOSPHORUS (test code = 4.2 mg/dL 2.5-5.0 4671194966) eGFR (test code = mL/min/1.73m2 9750226151) MILAD (test code = MILAD) Association of Glomerular Filtration Rate (GFR) and Staging of Kidney Disease* + --+ --+ ------+| GFR (mL/min/1.73 m2) ?| With Kidney Damage ?| ?Without Kidney Damage+ --------+ --------+ +| ?>90 ?| ?Stage one ?| ? Normal ?+ ---+ ---+ -------+| ?60-89 ?| ?Stage two ?| ? Decreased GFR ? + --+ --+ ------+| ?30-59 ?| ?Stage three ?| ? Stage three ? + --+ --+ ------+| ?15-29 ?| ?Stage four ? | ? Stage four ?+ ---+ ---+ -------+| ?<15 (or dialysis) ? ?| ?Stage five ? | ? Stage five ?+ ---+ ---+ -------+ *Each stage assumes the associated GFR level has been in effect for at least three months. ?Stages 1 to 5, with or without kidney disease, indicate chronic kidney disease. Notes: Determination of stages one and two (with eGFR >59mL/min/1.73 m2) requires estimation of kidney damage for at least three months as defined by structural or functional abnormalities of the kidney, manifested by either:Pathological abnormalities or Markers of kidney damage (including abnormalities in the composition of the blood or urine or abnormalities in imaging tests). Lab Interpretation Abnormal (test code = 06446-9) [facility] HospitalURIC [id number] 13:03:05 Test Item Value Reference Range Interpretation Comments URIC ACID (test code = 5983304256) 6.0 mg/dL 3.6-8.0 Lab Interpretation (test code = Normal 83062-5) [facility] WITH [id number] 12:24:44 Test Item Value Reference Range Interpretation Comments WBC (test code = See_Comment H [Automated 3919-2) message] The system which generated this result transmit flor reference range : 4.20 - 10.70 10*3/?L. The reference range was not used to interpret this result as normal/abnormal . RBC (test code = See_Comment L [Automated 379-8) message] The system which generated this result transmit flor reference range : 4.26 - 5.52 10*6/?L. The reference range was not used to interpret this result as normal/abnormal . HGB (test code = 9.1 g/dL 12.2-16.4 L 718-7) HCT (test code = 27.5 % 38.4-49.3 L 4544-3) MCV (test code = 92.9 fL 81.7-95.6 787-2) MCH (test code = 30.7 pg 26.1-32.7 785-6) MCHC (test code = 33.1 g/dL 31.2-35.0 786-4) RDW-SD (test code = 44.6 fL 38.5-51.6 29828-6) RDW-CV (test code = 13.1 % 12.1-15.4 788-0) PLT (test code = See_Comment [Automated 777-3) message] The system which generated this result transmit flor reference range : 150 - 328 10*3/ ?L. The reference range was not u sed to interpret th is result as normal/abnormal . MPV (test code = 10.7 fL 9.8-13.0 74635-3) NRBC/100 WBC (test See_Comment [Automat ed code = 1722735751) message] The system which generated this result transmit flor reference range : 0.0 - 10.0 /100 WBCs. The reference range was not used to interpret this result as normal/abnormal . NRBC x10^3 (test code <0.01 See_Comment [Auto mated = 9467905264) message] The system which generated this result transmit flor reference range : 10*3/?L. The reference range was not used to interpret this result as normal/abnormal . GRAN MAT (NEUT) % 77.1 % (test code = 770-8) IMM GRAN % (test code 0.80 % = 9711246582) LYMPH % (test code = 13.0 % 736-9) MONO % (test code = 7.6 % 5905-5) EOS % (test code = 1.2 % 713-8) BASO % (test code = 0.3 % 706-2) GRAN MAT x10^3(ANC) 10.90 10*3/uL 1.99-6.95 H (test code = 3146365781) IMM GRAN x10^3 (test 0.12 10*3/uL 0.00-0.06 H code = 7029459534) LYMPH x10^3 (test code 1.84 10*3/uL 1.09-3.23 = 731-0) MONO x10^3 (test code 1.07 10*3/uL 0.36-1.02 H = 742-7) EOS x10^3 (test code = 0.17 10*3/uL 0.06-0.53 711-2) BASO x10^3 (test code 0.04 10*3/uL 0.01-0.09 = 704-7) Lab Interpretation Abnormal (test code = 99751-6) [facility]2020-[facility]-20 01:44:16 Test Item Value Reference Range Interpretation Comments POCT GLU (test code = 1254774089) 112 mg/dL 70-110 H Lab Interpretation (test code = Abnormal 83866-2) [facility]UR[facility] [id number] 00:30:35 Test Item Value Reference Range Interpretation Comments URIC ACID (test code = 7694313938) 6.2 mg/dL 3.6-8.0 Lab Interpretation (test code = Normal 49803-0) [facility] HospitalDIFF CONSULT [id number] 23:05:11 LEUKOCYTOSIS WITH ABSOLUTE MONOCYTOSIS, ABSOLUTE TOXIC NEUTROPHILIA WITH VACUOLIZATION AND INCREASEDIMMATURE GRANULOCYTES, SUGGESTIVE OF SYSTEMIC INFECTION AND/OR INFLAMMATION. FOLLOW-UP CULTURES AND EVALUATION FOR SOURCE OF SEPSIS. RARE HYPERSEGMENTED NEUTROPHILS IDENTIFIED. NO BLASTS IDENTIFIED. NO EVIDENCE OF LEUKEMIA. NORMOCYTIC, NORMOCHROMIC ANEMIA WITH POLYCHROMASIA INCLUDING FREQUENT BROOKE CELLS, SUGGESTIVE OF KIDNEY DYSFUNCTION AND ANEMIA OF CHRONIC INFLAMMATION. EXCLUDE EARLY VITAMIN B12/FOLATE DEFICIENCY. ? PLATELETS ADEQUATE IN NUMBER AND MORPHOLOGY WITH OCCASIONAL LARGE FORMS.[facility] HospitalRESPIRATORY PANEL BY [id number] 22:03:14 Test Item Value Reference Range Interpretation Comments Adenovirus (test code = Negative Negative 63396-3) Coronavirus HKU1 (test Negative Negative code = 03309-0) Coronavirus NL63 (test Negative Negative code = 50211-3) Coronavirus 229E (test Negative Negative code = 83006-9) Coronavirus OC43 (test Negative Negative code = 88735-2) Human Metapneumovirus Negative Negative (test code = 48286-9) Human Negative Negative Rhinovirus/Enterovirus (test code = 72027-4) Influenza A (test code = Negative Negative 19333-8) Influenza B (test code = Negative Negative 77826-9) Parainfluenza Virus 1 Negative Negative (test code = 76772-1) Parainfluenza Virus 2 Negative Negative (test code = 42682-5) Parainfluenza Virus 3 Negative Negative (test code = 84724-0) Parainfluenza Virus 4 Negative Negative (test code = 25606-7) Respiratory Syncytial Negative Negative Virus (test code = 43759-0) Bordetella parapertussis Negative Negative (test code = 99083-2) Bordetella pertussis Negative Negative (test code = 77936-3) Chlamydia pneumoniae Negative Negative (test code = 18606-3) Mycoplasma pneumoniae Negative Negative (test code = 90525-3) MILAD (test code = MILAD) Negative:A negative result does not rule-out infection. ?This assay does not test for all potential infectious agents. ? Positive:A positive test result does not necessarily indicate the presence of viable organism. ? Lab Interpretation (test Normal code = 15097-4) [facility]POL[facility])2020-12-19 21:25:26 Test Item Value Reference Range Interpretation Comments POCT GLU (test code = 3619283602) 76 mg/dL 70-110 Lab Interpretation (test code = Normal 85098-8) [facility] B SURFACE [id number] 21:22:20 Test Item Value Reference Range Interpretation Comments HBsAB (test code = Negative 4289043432) HBsAb mIU/mL Semi-Quantitative (test code = 7964387357) MILAD (test code = Interpretation: MILAD) ?Hepatitis B Surface Antibody ? Negative - Patient is considered to be not immune to infection with HBV. ? ? Positive - Anti-HBs detected at greater than or equal to 12 mIU/mL. ?Patient is considered to be immune to infection with HBV. ? [facility] HospitalHCV [id number] 21:22:20 Test Item Value Reference Range Interpretation Comments HCV Ab (test code = 85038-3) Negative HCV Semi-Quantitative (test code = 15086-1) [facility] B SURFACE [id number] 21:05:17 Test Item Value Reference Range Interpretation Comments HBsAg Semi-Quantitative (test code = Negative Negative 5195-3) [facility] HospitalOSMOLALITY, SERUM OR [id number] 20:10:08 Test Item Value Reference Range Interpretation Comments OSMOLALITY (test code = See_Comment [Au tomated message] 8704765840) The system [employer] generated this result transmitted ref erence range: 278 - 30 5 mOsm/kg. The re ference range was not u sed to interpret this result as normal/abnor mal. Lab Interpretation (test Normal code = 13046-2) [facility] HospitalHIV 1/2 AG-AB WITH [id number] 19:04:05 Test Item Value Reference Range Interpretation Comments HIV Negative Negative Semi-quantitative (test code = 21302-9) MILAD (test code = Non-reactive for HIV-1 MILAD) antigen and HIV-1/HIV-2 antibodies. ?No laboratory evidence of HIV infection. ?Repeat in 2-4 weeks if acute HIV infection is suspected. [facility] HospitalTROPONIN [id number] 18:36:58 Test Item Value Reference Range Interpretation Comments TROPONIN I (test 0.170 ng/mL See_Comment H [Automated code = 3046574369) message] The system which generated this result transmitted reference range : <=0.034. The reference range was not used to interpret this result as normal/abnormal . MILAD (test code = Equal or Less than MILAD) 0.034 ng/ml---Normal ?Note: Cardiac troponin begins to rise 3-4 hours after the onset of ischemia. Repeat in 4-6 hours if the sample was drawn within 3-4 hours of the onset of the symptom and found normal. Between 0.035 and 0.120 ng/mL--- Borderline. Questionable myocardial injury or necrosis ? ?Note: Serial measurement may be necessary to confirm or exclude the diagnosis of myocardial injury or necrosis; Clinical correlation (symptoms, EKGs, imaging studies, and others) required; Repeat in 4-6 hours if clinically indicated. ? Equal or Higher than 0.121 ng/mL---Abnormal. Myocardial Injury or Necrosis Likely ? Biotin has been reported to cause a negative bias, interpret results relative to patient's use of biotin. ? Lab Interpretation Abnormal (test code = 09756-4) [facility] HospitalLEGIONELLA URINARY ANTIGEN [id number] 17:24:46 Test Item Value Reference Range Interpretation Comments Legionella Urinary Negative Negative Antigen (test code = 2494409358) MILAD (test code = MILAD) Negative for L. pneumophilia serogroup I antigen in urine suggesting no recent or current infection. Infection due to Legionella cannot be ruled out since other serogroups and species may cause disease. Furthermore, antigens may not be present in urine during early stage of infection, or the level of antigen present in urine may be below the detection limit of the test. Lab Interpretation (test Normal code = 00386-0) [facility] HospitalPNEUMOCOCCAL [id number] 17:24:46 Test Item Value Reference Range Interpretation Comments S. pneumoniae antigen (test code = Negative Negative 8865823111) Lab Interpretation (test code = Normal 65739-4) [facility]PO[facility]2020-12-19 17:15:16 Test Item Value Reference Range Interpretation Comments POCT GLU (test code = 1954332865) 91 mg/dL 70-110 Lab Interpretation (test code = Normal 16193-0) [facility] HospitalVITAMIN B12, [id number] 17:06:42 Test Item Value Reference Range Interpretation Comments VIT B12 (test code = 242 pg/mL 240-930 0425647573) MILAD (test code = MILAD) Biotin has been reported to cause a positive bias, interpret results relative to patient's use of biotin. Lab Interpretation (test Normal code = 53749-2) [facility] HospitalPROCALCITONIN2021-04-16 16:47:54 Test Item Value Reference Range Interpretation Comments Procalcitonin (test 0.68 ng/mL <0.07 H code = 1704863645) MILAD (test code = MILAD) INTERPRETATION OF PROCALCITONIN RESULTS IN ADULTS >= 18 YEARS OF AGE Initiation and discontinuation of antibiotics on patients with suspected or confirmed Lower Respiratory Tract Infection in Adults >= 18 years of age. + +-------- --------+ + -----+|Procalcitonin |Interpretation ?|Antibiotic ? ? |Considerations ? |ng/mL ? | ?|recommendation | ? + +-------- --------+ + -----+| <0.1 ? | Bacterial ? ? ?| Strongly ? ? ?| ? | ?| infection very | discouraged ? | Overruling: ? | ?| unlikely ? ? ? | ? | ? Clinically unstable ? ? ? + +-------- --------+ + ? High risk for adverse ? ? | <0.25 ?| Bacterial ? ? ?| Discouraged ? | ? outcome ? | ?| infection ? ? ?| ? | ? SEE IMPORTANT NOTE ?| ?| unlikely ? ? ? | ? | ? + +-------- --------+ + -----+| >=0.25 ? ? ? | Bacterial ? ? ?| Encouraged ? ?| ? | ?| infection ? ? ?| ? | ? | ?| likely ? | ? | Consider treatment failure ?+ +------- ---------+ -+ if levels does not decrease | >0.5 ? | Bacterial ? ? ?| Strongly ? ? ?| appropriately ? | ?| infection very | encouraged ? ?| ? | ?| likely ? | ? | ? + +-------- --------+ + -----+ Discontinuation of antibiotics in high-acuity patients with suspected or confirmed sepsis in Adults >= 18 years of age. + +-------- --------+ + -----+|Procalcitonin |Interpretation ?|Antibiotic ? ? |Considerations ? |ng/mL ? | ?|recommendation | ? + +-------- --------+ + -----+| <0.25 ?| Bacterial ? ? ?| Strongly ? ? ?| ? | ?| infection very | discouraged ? | Overruling: ? | ?| unlikely ? ? ? | ? | ? Clinically unstable ? ? ? + +-------- --------+ + ? High risk for adverse ? ? | <0.5 or drop | Bacterial ? ? ?| Discouraged ? | ? outcome ? | >80% from ? ?| infection ? ? ?| ? | ? SEE IMPORTANT NOTE ?| highest PCT ?| unlikely ? ? ? | ? | ? | level ?| ?| ? | ? + +-------- --------+ + -----+| >=0.5 ?| Bacterial ? ? ?| Encouraged ? ?| ? | ?| infection ? ? ?| ? | ? | ?| likely ? | ? | Consider treatment failure ?+ +------- ---------+ -+ if levels does not decrease | >1.0 ? | Bacterial ? ? ?| Strongly ? ? ?| appropriately ? | ?| infection very | encouraged ? ?| ? | ?| likely ? | ? | ? + +-------- --------+ + -----+ Percentage of drop of Procalcitonin calculation for Discontinuation of antibiotics in high-acuity patients with suspected or confirmed sepsis in Adults >= 18 years of age. ? Procalcitonin highest{}-Procalcitonin current{}Delta Procalcitonin = x100% ? Procalcitonin current {} IMPORTANT NOTE: Procalcitonin may be elevated without bacterial infection by physiologic stress related to trauma, alba, chronic dialysis, metastatic cancer, surgery in the past seven days, malaria, some fungal infections, and some forms of vasculitis. The interpretation algorithm may not apply to patients with immunosuppression (equivalent of >10 mg of prednisone daily), HIV with CD4 cell count < 350 cells/mm3, active malignancy on systemic chemotherapy, solid organ transplant or hematopoietic stem cell transplantation, or hospital acquired pneumonia. Additionally, some clinical trials of procalcitonin have excluded patients with shock requiring vasopressor use, acute respiratory failure requiring mechanical ventilation, or those with known lung abscess/empyema. For further information please refer to:[email or web address] Lab Interpretation Abnormal (test code = 79660-5) [facility], [id number] 16:36:45 Test Item Value Reference Range Interpretation Comments VIT D 25OH (test code = <13 25-80 L 61522-4) MILAD (test code = MILAD) Deficiency: <20 ng/mLInsufficiency: 20-24 ng/mLOptimal: 25-80 ng/mL Lab Interpretation (test Abnormal code = 86198-6) [facility]POT[facility]SIUM, URINE [id number] 16:17:47 Test Item Value Reference Range Interpretation Comments K URINE (test code = 6752067153) 35.1 mmol/L [facility] HospitalOSMOLALITY [id number] 16:13:28 Test Item Value Reference Range Interpretation Comments OSMO U (test code = See_Comment [Automa flor message] 3230488242) The system Zenput generated this result transmitted ref erence range: 50-1,100 mOsm/kg. The re ference range was not u sed to interpret this result as normal/abnor mal. Lab Interpretation (test Normal code = 92734-8) [facility] HospitalURIC [id number] 15:25:19 Test Item Value Reference Range Interpretation Comments URIC ACID (test code = 3298073207) 6.2 mg/dL 3.6-8.0 Lab Interpretation (test code = Normal 02804-6) [facility] HospitalCREATINE [id number] 15:25:04 Test Item Value Reference Range Interpretation Comments CK (test code = 4834761717) 206 U/L 33-194 H Lab Interpretation (test code = Abnormal 50360-9) [facility] HospitalFERRITIN [id number] 15:15:20 Test Item Value Reference Range Interpretation Comments FERRITIN (test code = 1300.0 ng/mL 18.0-464.0 H 9782394346) MILAD (test code = MILAD) Biotin has been reported to cause a negative bias, interpret results relative to patient's use of biotin. Lab Interpretation (test Abnormal code = 92850-1) [facility] HospitalPROTEIN CREAT RATIO URINE [id number] 15:14:34 Test Item Value Reference Range Interpretation Comments T. PROT U (test >1000 mg/dL UPRO approxi mately 1049 code = 2888-6) mg/dL with ex tended dilution. CREAT U (test code 39.4 mg/dL = 4844038453) Protein/Creatinine Unable to calculate Ratio Urine (test because, e ither urine code = 5096488634) total pro tein, urine creatinine, or both are greater than th e linearity of th e analyzer. [facility] HospitalXR CHEST 1 [id number] 13:11:07 Pulmonary vascular congestion. Preliminary Report Dictated by Resident: Feliz Reveles MD., have reviewed this study and agree withthe above report.EXAM: XR CHEST 1 VW HISTORY: shortness of breath COMPARISON: None. TECHNIQUE: ?Single ?PA view radiograph of the chest. FINDINGS: Diffuse increased in the pulmonary vascular markings with prominentpulmonary holly. No focal co nsolidation, pleural effusion or pneumothorax isidentified. The cardiomediastinal silhouette is normal. Chronic fracture deformities of the third, fourth, fifth, sixth ribs on theleft is noted. 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 No acute osseous abnormality is identified. [facility], Radiant Results Inft User - 12/19/2020 8:12 AM CDTEXAM: XR CHEST 1 VWHISTORY: shortness of breath COMPARISON: None.TECHNIQUE: Single PA view radiograph of the chest.FINDINGS:Diffuse increased in the pulmonary vascular markings with prominentpulmonary holly. No focal consolidation, pleural effusion or pneumothorax isidentified.The cardiomediastinal silhouette is normal.Chronic fracture deformities of the third, fourth, fifth, sixth ribs on theleft is noted. Bilateral mild acromioclavicularand glenohumeral jointosteoarthrosis. No acute osseous abnormality is identified.IMPRESSIONPulmonaryvascular congestion.Preliminary Report Dictated by Resident: Feliz Croft MD., have reviewed this study and agree withthe above report.[facility] HospitalPOLA GLUCOSE (AUTOMATED)2020-12-19 12:54:56 Test Item Value Reference Range Interpretation Comments POCT GLU (test code = 7069470449) 99 mg/dL 70-110 Lab Interpretation (test code = Normal 85029-1) [facility] WITH [id number] 11:52:47 Test Item Value Reference Range Interpretation Comments WBC (test code = See_Comment H [Automated 6690-2) message] The system which generated this result transmit flor reference range : 4.20 - 10.70 10*3/?L. The reference range was not used to interpret this result as normal/abnormal . RBC (test code = See_Comment L [Automated 789-8) message] The system which generated this result transmit flor reference range : 4.26 - 5.52 10*6/?L. The reference range was not used to interpret this result as normal/abnormal . HGB (test code = 10.4 g/dL 12.2-16.4 L 718-7) HCT (test code = 31.5 % 38.4-49.3 L 4544-3) MCV (test code = 92.4 fL 81.7-95.6 787-2) MCH (test code = 30.5 pg 26.1-32.7 785-6) MCHC (test code = 33.0 g/dL 31.2-35.0 786-4) RDW-SD (test code = 43.5 fL 38.5-51.6 72329-6) RDW-CV (test code = 12.9 % 12.1-15.4 788-0) PLT (test code = See_Comment [Automated 777-3) message] The system which generated this result transmit flor reference range : 150 - 328 10*3/ ?L. The reference range was not u sed to interpret th is result as normal/abnormal . MPV (test code = 10.6 fL 9.8-13.0 79496-8) NRBC/100 WBC (test See_Comment [Automat ed code = 8700401520) message] The system which generated this result transmit flor reference range : 0.0 - 10.0 /100 WBCs. The reference range was not used to interpret this result as normal/abnormal . NRBC x10^3 (test code <0.01 See_Comment [Auto mated = 3887728101) message] The system which generated this result transmit flor reference range : 10*3/?L. The reference range was not used to interpret this result as normal/abnormal . GRAN MAT (NEUT) % 80.1 % (test code = 770-8) IMM GRAN % (test code 1.10 % = 0175518353) LYMPH % (test code = 8.3 % 736-9) MONO % (test code = 10.0 % 5905-5) EOS % (test code = 0.1 % 713-8) BASO % (test code = 0.4 % 706-2) GRAN MAT x10^3(ANC) 16.52 10*3/uL 1.99-6.95 H (test code = 4677772369) IMM GRAN x10^3 (test 0.22 10*3/uL 0.00-0.06 H code = 0633380933) LYMPH x10^3 (test code 1.71 10*3/uL 1.09-3.23 = 731-0) MONO x10^3 (test code 2.06 10*3/uL 0.36-1.02 H = 742-7) EOS x10^3 (test code = <0.03 0.06-0.53 L 711-2) BASO x10^3 (test code 0.08 10*3/uL 0.01-0.09 = 704-7) REACT LYMPHS (test Rare code = 7508283363) Lab Interpretation Abnormal (test code = 23947-6) [facility] HospitalCOMP. METABOLIC PANEL (60856)2020-12-19 11:43:36 Test Item Value Reference Range Interpretation Comments NA (test code = 135 mmol/L 135-145 5612891312) K (test code = 3.6 mmol/L 3.5-5.0 4397263978) CL (test code = 108 mmol/L 98-108 3930885175) CO2 TOTAL (test code = 22 mmol/L 23-31 L 5727177225) AGAP (test code = 2-16 0078703614) BUN (test code = 28 mg/dL 7-23 H 8789722003) GLUCOSE (test code = 84 mg/dL 70-110 5909392769) CREATININE (test code = 2.29 mg/dL 0.60-1.25 H 5471412610) TOTAL BILI (test code = 0.5 mg/dL 0.1-1.1 2016769168) CALCIUM (test code = 7.9 mg/dL 8.6-10.6 L 1411628081) T PROTEIN (test code = 5.3 g/dL 6.3-8.2 L 4498191940) ALBUMIN (test code = 2.7 g/dL 3.5-5.0 L 7621135474) ALK PHOS (test code = 78 U/L 34-122 7298121902) ALTv (test code = 12 U/L 5-50 1742-6) AST(SGOT) (test code = 23 U/L 13-40 6037228275) eGFR (test code = mL/min/1.73m2 0665564041) MILAD (test code = MILAD) Association of Glomerular Filtration Rate (GFR) and Staging of Kidney Disease* + --+ --+ ------+| GFR (mL/min/1.73 m2) ?| With Kidney Damage ?| ?Without Kidney Damage+ --------+ --------+ +| ?>90 ?| ?Stage one ?| ? Normal ?+ ---+ ---+ -------+| ?60-89 ?| ?Stage two ?| ? Decreased GFR ? + --+ --+ ------+| ?30-59 ?| ?Stage three ?| ? Stage three ? + --+ --+ ------+| ?15-29 ?| ?Stage four ? | ? Stage four ?+ ---+ ---+ -------+| ?<15 (or dialysis) ? ?| ?Stage five ? | ? Stage five ?+ ---+ ---+ -------+ *Each stage assumes the associated GFR level has been in effect for at least three months. ?Stages 1 to 5, with or without kidney disease, indicate chronic kidney disease. Notes: Determination of stages one and two (with eGFR >59mL/min/1.73 m2) requires estimation of kidney damage for at least three months as defined by structural or functional abnormalities of the kidney, manifested by either:Pathological abnormalities or Markers of kidney damage (including abnormalities in the composition of the blood or urine or abnormalities in imaging tests). Lab Interpretation Abnormal (test code = 97943-2) [facility] HospitalPROTHROMBIN TIME / [id number] 11:43:16 Test Item Value Reference Range Interpretation Comments PROTIME PATIENT (test See_Comment [Auto mated message] code = 5964-2) The system wh ich generated this result transmitted ref erence range: 12.0 - 1 4.7 Seconds. The re ference range was not u sed to interpret this result as normal/abnor mal. INR (test code = 6301-6) Nor mal INR <1.1; Warfarin Therap eutic range 2.0 to 3. 0 or 2.5 to 3.5, dep ending upon the indica tions. Lab Interpretation (test Normal code = 16551-0) [facility] HospitalTROPONIN [id number] 11:36:37 Test Item Value Reference Range Interpretation Comments TROPONIN I (test 0.110 ng/mL See_Comment H [Automated code = 5347127664) message] The system which generated this result transmitted reference range : <=0.034. The reference range was not used to interpret this result as normal/abnormal . MILAD (test code = Equal or Less than MILAD) 0.034 ng/ml---Normal ?Note: Cardiac troponin begins to rise 3-4 hours after the onset of ischemia. Repeat in 4-6 hours if the sample was drawn within 3-4 hours of the onset of the symptom and found normal. Between 0.035 and 0.120 ng/mL--- Borderline. Questionable myocardial injury or necrosis ? ?Note: Serial measurement may be necessary to confirm or exclude the diagnosis of myocardial injury or necrosis; Clinical correlation (symptoms, EKGs, imaging studies, and others) required; Repeat in 4-6 hours if clinically indicated. ? Equal or Higher than 0.121 ng/mL---Abnormal. Myocardial Injury or Necrosis Likely ? Biotin has been reported to cause a negative bias, interpret results relative to patient's use of biotin. ? Lab Interpretation Abnormal (test code = 70661-9) [facility] HospitalSEDIMENTATION [id number] 11:34:16 Test Item Value Reference Range Interpretation Comments ESR (test code = See_Comment H [Automated message] 9845325302) The system Zenput generated this result transmitted ref erence range: 0 - 10 m m/HR. The reference r taye was not used to interpret this result as normal/abnor mal. Lab Interpretation (test Abnormal code = 61435-7) [facility] HospitalN-TERMINAL [id number] 11:33:20 Test Item Value Reference Range Interpretation Comments NT-proBNP (test code 5120 pg/mL See_Comment H [Autom ated = 0179825153) message] The system which generated this result transmitted reference range : <=125. The reference range was not used to interpret this result as normal/abnormal . MILAD (test code = MILAD) Biotin has been reported to cause a negative bias, interpret results relative to patient's use of biotin. Lab Interpretation Abnormal (test code = 77511-5) [facility] HospitalMAGNESIUM2021-04-16 11:31:59 Test Item Value Reference Range Interpretation Comments MAGNESIUM (test code = 6223128699) 2.0 mg/dL 1.7-2.4 Lab Interpretation (test code = Normal 83007-7) [facility] HospitalURIC [id number] 11:31:39 Test Item Value Reference Range Interpretation Comments URIC ACID (test code = 2014578501) 6.2 mg/dL 3.6-8.0 Lab Interpretation (test code = Normal 85180-2) [facility] HospitalIRON [id number] 11:31:38 Test Item Value Reference Range Interpretation Comments IRON (test code = 3832949052) 19 ug/dL 50-160 L TIBC (test code = 9108702087) 162 ug/dL 250-410 L % FE SAT (test code = 4231527855) 12 % 20-50 L Lab Interpretation (test code = Abnormal 26483-0) [facility] HospitalLIPASE2021-04-16 11:29:57 Test Item Value Reference Range Interpretation Comments LIPASE (test code = 0287708195) 18 U/L 0-220 Lab Interpretation (test code = Normal 99688-4) [facility] HospitalLIPID PANEL (99194)(TOTAL CHOLESTEROL, TRIGLYCERIDES, HDL)2020-12-19 11:22:56 Test Item Value Reference Range Interpretation Comments CHOL (test code = 238 mg/dL 120-200 H 3079125770) HDL (test code = 69 mg/dL >40 8711740311) HDLC RATIO (test code = See_Comment [Au tomated message] 4524333008) The system Zenput generated this result transmit flor reference range : <=5.0. The refe rence range was not u sed to interpret th is result as normal/abnormal . TRIG (test code = 131 mg/dL 30-170 8846362596) LDL CHOL (test code = 143 mg/dL See_Comment [Auto mated message] 31461-7) The system Zenput generated this result transmit flor reference range : <=160. The refe rence range was not u sed to interpret th is result as normal/abnormal . VLDL (test code = 26 mg/dL 5-60 6968398747) Lab Interpretation (test Abnormal code = 56751-2) [facility] HospitalSODIUM, URINE [id number] 11:18:17 Test Item Value Reference Range Interpretation Comments NA URINE (test code = 0253241203) 68 mmol/L [facility] HospitalACUTE CARE VENOUS BLOOD [id number] 09:54:21 Test Item Value Reference Range Interpretation Comments PH (test code = 7.32-7.42 2968118359) PCO2 BLANCA (test code = See_Comment L [Auto mated message] 0080422847) The system Zenput generated this result transmitted ref erence range: 41 - 51 mmHg. The reference r taye was not used to interpret this result as normal/abnor mal. PO2 BLANCA (test code = See_Comment HH [Autom ated message] 5960411469) The system Zenput generated this result transmitted ref erence range: 25 - 40 mmHg. The reference r taye was not used to interpret this result as normal/abnor mal. HCO3 BLANCA (test code = See_Comment L [Auto mated message] 1965249099) The system Zenput generated this result transmitted ref erence range: 24 - 28 mEq/L. The reference r taye was not used to interpret this result as normal/abnor mal. AC VBE(BEAKER) (test mEq/L code = 9492454486) Lab Interpretation (test Abnormal code = 44367-3) [facility] HospitalGLYCOSYLATED HEMOGLOBIN (A1C)2020-12-19 06:37:05 Test Item Value Reference Range Interpretation Comments HGB A1C (test code = 9.8 % 4.0-5.7 H 4548-4) MILAD (test code = MILAD) Reference RangesNormal: <5.7%Prediabetes: 5.7 - 6.4%Diabetes: > 6.5% Lab Interpretation (test Abnormal code = 81117-4) [facility] HospitalTHYROID STIMULATING [id number] 05:27:05 Test Item Value Reference Range Interpretation Comments TSH (test code = See_Comment [Automated message] 2435371664) The system Zenput generated this result transmitted ref erence range: 0.45 - 4 .70 mIU/L. The refe rence range was not u sed to interpret this result as normal/abnor mal. Lab Interpretation (test Normal code = 00193-4) [facility] HospitalMAGNESIUM2021-04-16 04:55:48 Test Item Value Reference Range Interpretation Comments MAGNESIUM (test code = 8542760979) 2.0 mg/dL 1.7-2.4 Lab Interpretation (test code = Normal 29128-7) [facility] HospitalPHOSPHORUS2021-04-16 04:55:48 Test Item Value Reference Range Interpretation Comments PHOSPHORUS (test code = 3330879085) 4.1 mg/dL 2.5-5.0 Lab Interpretation (test code = Normal 84427-2) [facility] HospitalURIC [id number] 04:55:48 Test Item Value Reference Range Interpretation Comments URIC ACID (test code = 3472338781) 6.4 mg/dL 3.6-8.0 Lab Interpretation (test code = Normal 83039-8) [facility] HospitalCREATINE [id number] 04:55:07 Test Item Value Reference Range Interpretation Comments CK (test code = 7580031397) 233 U/L 33-194 H Slight hemolysis Lab Interpretation (test Abnormal code = 26528-4) [facility] HospitalLIPASE2021-04-16 04:39:28 Test Item Value Reference Range Interpretation Comments LIPASE (test code = 2094701080) 19 U/L 0-220 Lab Interpretation (test code = Normal 45832-8) [facility] HospitalCT ABDOMEN PELVIS W [id number] 03:48:13 Multiple coarse calcifications throughout the pancreatic parenchyma, withsome segmental dilatation of the distal main pancreatic duct, suggestive ofchronic pancreatitis. Correlation with patient history and any priorimaging is recommended. No evidence for acute pancreatitis or pseudocyst. Blind-ending diverticulum extending from a small bowel loop in the rightlower quadrant, with an incorporated coarse calcification, possiblyrepresenting a Meckel's diverticulum. There is no surrounding inflammatorychange. Mild thickening of the wall of the urinary bladder, possibly reflecting adegree of chronic outlet obstruction associated with mild prostatomegaly.Cystitis could also be in the differential, and correlation with urinalysiscould be considered. RL: 460 AFC: [id number] Ordering physician: THIERRY AUSTIN Indication: Generalized abdominal pain, history of lymphoma, leukocytosis COMPARISON: Renal ultrasound dated 07/07/2020 TECHNIQUE: Axial images of the abdomen and pelvis are performed followingadministration of intravenous contrast material. Images were reformatted inthe coronal and sagittal plane. CT scan was performed according to ALARA(as low as reasonably achievable) policy. FINDINGS: The lung bases are clear. There are multiple healed rib fractureson the left. The liver, gallbladder, spleen and adrenal glands are withinnormal limits. There are multiple coarse calcifications throughout thepancreatic parenchyma, with some s egmental dilatation of the distal mainpancreatic duct. No peripancreatic inflammatory change or pseudocyst isappreciated. The kidneys are normal in appearance bilaterally withouthydronephrosis. No abdominal aortic aneurysm or dissection is appreciated. There is no free fluid in the pelvis. The prostate gland is mildlyprominent. There is diffuse thickening of the wall of the urinary bladder.There is acoarse calcification in a blind-ending diverticulum arising froma small bowel loop in the right lower quadrant (series 2, image 67- 75),possibly representing a Meckel's diverticulum. There is no associat edinflammation. There is no bowel obstruction, widespread diverticulosis oracute diverticulitis. Theappendix is identified and within normal limits. Bone windows through the abdomen and pelvis demonstrate no osseousdestructive lesion. [facility], Radiant Results Inft User - 12/18/2020 10:49 PM CDTOrdering physician: THIERRY AUSTINIndication: Generalized abdominal pain, history of lymphoma, leukocytosisCOMPARISON: Renal ultrasound dated 07/07/2020TECHNIQUE: Axial images of the abdomen and pelvis are performed followingadministration of intravenous contrast material. Images were reformatted inthe coronal and sagittal plane. CT scan was performed according to ALARA(as low as reasonably achievable) policy.F INDINGS: The lung bases are clear. There are multiple healed rib fractureson the left. The liver, gallbladder, spleen and adrenal glands are withinnormal limits. There are multiple coarse calcifications throughout thepancreatic parenchyma, with some segmental dilatation of the distal mainpancreatic duct. No peripancreatic inflammatory change or pseudocyst isappreciated. The kidneys are normal in appearance bilaterally withouthydronephrosis. No abdominal aortic aneurysm or dissection is appreciated.There is no free fluid in the pelvis. The prostate gland is mildlyprominent. There is diffuse thickening of the wall of the urinary bladder.There is a coarse calcification in a blind-ending diverticulum arising froma small bowel loop in the right lower quadrant (series 2, image 67-75),possibly representing a Meckel's diverticulum. There is no associatedinflammation. There is no bowel obstruction, widespread diverticulosis oracute diverticulitis. The appendix is identified and within normal limits. Bone windows through the abdomen and pelvis demonstrate no osseousdestructive lesion.IMPRESSIONMultiple coarse calcifications throughout the pancreatic parenchyma, withsome segmental dilatation of the distal main pancreatic duct, suggestive ofchronic pancreatitis. Correlation with patient history and any p riorimaging is recommended. No evidence for acute pancreatitis or pseudocyst.Blind-ending diverticulum extending from a small bowel loop in the rightlower quadrant, with an incorporated coarse calcification, possiblyrepresenting a Meckel's diverticulum. There is no surrounding inflammatorychange.Mild thickening of the wall of the urinary bladder, possibly reflecting adegree of chronic outlet obstruction associated with mild prostatomegaly.Cystitis could also be in the differential, and correlation with urinalysiscould be considered.RL: 460AF: [id number] [facility] WITH [id number] 00:52:21 Test Item Value Reference Range Interpretation Comments WBC (test code = See_Comment H [Automated 6690-2) message] The system which generated this result transmit flor reference range : 4.20 - 10.70 10*3/?L. The reference range was not used to interpret this result as normal/abnormal . RBC (test code = See_Comment L [Automated 789-8) message] The system which generated this result transmit flor reference range : 4.26 - 5.52 10*6/?L. The reference range was not used to interpret this result as normal/abnormal . HGB (test code = 11.8 g/dL 12.2-16.4 L 718-7) HCT (test code = 35.3 % 38.4-49.3 L 4544-3) MCV (test code = 91.9 fL 81.7-95.6 787-2) MCH (test code = 30.7 pg 26.1-32.7 785-6) MCHC (test code = 33.4 g/dL 31.2-35.0 786-4) RDW-SD (test code = 43.3 fL 38.5-51.6 37090-2) RDW-CV (test code = 12.9 % 12.1-15.4 788-0) PLT (test code = See_Comment [Automated 777-3) message] The system which generated this result transmit flor reference range : 150 - 328 10*3/ ?L. The reference range was not u sed to interpret th is result as normal/abnormal . MPV (test code = 10.6 fL 9.8-13.0 55462-6) NRBC/100 WBC (test See_Comment [Automat ed code = 4041238085) message] The system which generated this result transmit flor reference range : 0.0 - 10.0 /100 WBCs. The reference range was not used to interpret this result as normal/abnormal . NRBC x10^3 (test code <0.01 See_Comment [Auto mated = [id number]) message] The system which generated this result transmit flor reference range : 10*3/?L. The reference range was not used to interpret this result as normal/abnormal . GRAN MAT (NEUT) % 81.7 % (test code = 770-8) IMM GRAN % (test code 1.70 % = 3598777158) LYMPH % (test code = 7.0 % 736-9) MONO % (test code = 9.2 % 5905-5) EOS % (test code = 0.1 % 713-8) BASO % (test code = 0.3 % 706-2) GRAN MAT x10^3(ANC) 20.35 10*3/uL 1.99-6.95 H (test code = 5603999685) IMM GRAN x10^3 (test 0.42 10*3/uL 0.00-0.06 H code = 1915757616) LYMPH x10^3 (test code 1.73 10*3/uL 1.09-3.23 = 731-0) MONO x10^3 (test code 2.28 10*3/uL 0.36-1.02 H = 742-7) EOS x10^3 (test code = 0.03 10*3/uL 0.06-0.53 L 711-2) BASO x10^3 (test code 0.08 10*3/uL 0.01-0.09 = 704-7) Lab Interpretation Abnormal (test code = 55850-3) [id number]33 Test Item Value Reference Range Interpretation Comments TROPONIN I (test 0.047 ng/mL See_Comment H [Automated code = 2417631994) message] The system which generated this result transmitted reference range : <=0.034. The reference range was not used to interpret this result as normal/abnormal . MIALD (test code = Equal or Less than MILAD) 0.034 ng/ml---Normal ?Note: Cardiac troponin begins to rise 3-4 hours after the onset of ischemia. Repeat in 4-6 hours if the sample was drawn within 3-4 hours of the onset of the symptom and found normal. Between 0.035 and 0.120 ng/mL--- Borderline. Questionable myocardial injury or necrosis ? ?Note: Serial measurement may be necessary to confirm or exclude the diagnosis of myocardial injury or necrosis; Clinical correlation (symptoms, EKGs, imaging studies, and others) required; Repeat in 4-6 hours if clinically indicated. ? Equal or Higher than 0.121 ng/mL---Abnormal. Myocardial Injury or Necrosis Likely ? Biotin has been reported to cause a negative bias, interpret results relative to patient's use of biotin. ? Lab Interpretation Abnormal (test code = 55003-0) [id number] 00:23:14 Test Item Value Reference Range Interpretation Comments NT-proBNP (test code 4530 pg/mL See_Comment H [Autom ated = 5653339407) message] The system which generated this result transmitted reference range : <=125. The reference range was not used to interpret this result as normal/abnormal . MILAD (test code = MILAD) Biotin has been reported to cause a negative bias, interpret results relative to patient's use of biotin. Lab Interpretation Abnormal (test code = 42060-7) [facility]. METABOLIC PANEL (39065)2020-12-19 00:14:12 Test Item Value Reference Range Interpretation Comments NA (test code = 130 mmol/L 135-145 L 0755860243) K (test code = 4.7 mmol/L 3.5-5.0 0120975815) CL (test code = 104 mmol/L 98-108 2076956070) CO2 TOTAL (test code = 20 mmol/L 23-31 L 7174921034) AGAP (test code = 2-16 8935732684) BUN (test code = 32 mg/dL 7-23 H 9009407796) GLUCOSE (test code = 186 mg/dL 70-110 H 7264018953) CREATININE (test code = 2.29 mg/dL 0.60-1.25 H 2337387580) TOTAL BILI (test code = 0.8 mg/dL 0.1-1.6 1034199079) CALCIUM (test code = 7.9 mg/dL 8.6-10.6 L 8561515227) T PROTEIN (test code = 6.4 g/dL 6.3-8.2 1484032646) ALBUMIN (test code = 3.4 g/dL 3.5-5.0 L 7590301200) ALK PHOS (test code = 85 U/L 34-122 3616461804) ALTv (test code = 17 U/L 5-50 1742-6) AST(SGOT) (test code = 29 U/L 13-40 8258089534) eGFR (test code = mL/min/1.73m2 9452489221) MILAD (test code = MILAD) Association of Glomerular Filtration Rate (GFR) and Staging of Kidney Disease* + --+ --+ ------+| GFR (mL/min/1.73 m2) ?| With Kidney Damage ?| ?Without Kidney Damage+ --------+ --------+ +| ?>90 ?| ?Stage one ?| ? Normal ?+ ---+ ---+ -------+| ?60-89 ?| ?Stage two ?| ? Decreased GFR ? + --+ --+ ------+| ?30-59 ?| ?Stage three ?| ? Stage three ? + --+ --+ ------+| ?15-29 ?| ?Stage four ? | ? Stage four ?+ ---+ ---+ -------+| ?<15 (or dialysis) ? ?| ?Stage five ? | ? Stage five ?+ ---+ ---+ -------+ *Each stage assumes the associated GFR level has been in effect for at least three months. ?Stages 1 to 5, with or without kidney disease, indicate chronic kidney disease. Notes: Determination of stages one and two (with eGFR >59mL/min/1.73 m2) requires estimation of kidney damage for at least three months as defined by structural or functional abnormalities of the kidney, manifested by either:Pathological abnormalities or Markers of kidney damage (including abnormalities in the composition of the blood or urine or abnormalities in imaging tests). Lab Interpretation Abnormal (test code = 07519-1) [facility] R[facility]ID TEST[facility])2020-12-19 00:11:14 Test Item Value Reference Range Interpretation Comments SARS-CoV-2 Rapid ID NOW Not Detected Not Detected (test code = 46248-9) MILAD (test code = MILAD) ID NOW COVID-19 Assay is an isothermal nucleic acid amplification test intended for the qualitative detection of nucleic acid from SARS-CoV-2 viral RNA in nasopharyngeal (FLOORS BUFFER) specimens. It is used under Emergency Use Authorization (EUA) by FDA. The limit of detection (LOD) of the assay is 125 Genome Equivalents/mL. A positive result is indicative of the presence of SARS-CoV-2 RNA. ?Clinical correlation with patient history and other diagnostic information is necessary to determine patient infection status. A negative (Not Detected) result does not preclude SARS-CoV-2 infection. In patients with clinical symptoms and other tests that are consistent with SARS-CoV-2 infection, negative results should be treated as presumptive negative and a new specimen should be tested with alternative PCR molecular test. Invalid: Please collect a new specimen for repeat patient testing if clinically indicated. Lab Interpretation Normal (test code = 30693-0) [facility] 00:03:38 Test Item Value Reference Range Interpretation Comments APPEARANCE (test code = Clear Clear 3051799910) COLOR (test code = Yellow Yellow 4206852205) PH (test code = 4.8-8.0 9470595611) SP GRAVITY (test code = 1.003-1.030 1744638486) GLU U QUAL (test code = 500 mg/dL Normal A 3989162463) BLOOD (test code = 1+ Negative A 3373977084) KETONES (test code = Negative Negative 6624486309) PROTEIN (test code = 500 mg/dL Negative A 2887-8) UROBILIN (test code = Normal Normal 3833654092) BILIRUBIN (test code = Negative Negative 9263030107) NITRITE (test code = Negative Negative 4726794587) LEUK WARREN (test code = Negative Negative 2703061510) RBC/HPF (test code = See_Comment H [Autom ated message] 5927684964) The system [employer] generated this result transmit flor reference range : 0 - 3 HPF. The refe rence range was not u sed to interpret th is result as normal/abnormal . WBC/HPF (test code = See_Comment H [Autom ated message] 8657288929) The system [employer] generated this result transmit flor reference range : 0 - 5 HPF. The refe rence range was not u sed to interpret th is result as normal/abnormal . BACTERIA (test code = Few Negative A 8146672571) MUCOUS (test code = Slight Negative LPF A 5496234910) SPERM (test code = See_Comment [Automat ed message] 1974270754) The system [employer] generated this result transmit flor reference range : <=1 HPF. The refere nce range was not u sed to interpret th is result as normal/abnormal . Lab Interpretation (test Abnormal code = 37275-4) [facility] HospitalLaflic Acid Whole [id number] 23:52:54 Test Item Value Reference Range Interpretation Comments LACTIC ACID (test code = 1.11 mmol/L 0.50-2.20 3551259367) Lab Interpretation (test code = Normal 33006-7) [facility] GLUCOSE (AUTOMATED)2020-07-09 22:50:00 Test Item Value Reference Range Interpretation Comments POCT GLU (test code = 1028058286) 106 mg/dL 70-110 Lab Interpretation (test code = Normal 53520-6) [facility] HospitalC3 [id number] 19:11:00 Test Item Value Reference Range Interpretation Comments C3 (test code = 1723221904) 105 mg/dL 86-184 Lab Interpretation (test code = Normal 49915-4) [facility] HospitalC4 [id number] 19:11:00 Test Item Value Reference Range Interpretation Comments C4 (test code = 8388764834) 25 mg/dL 20-59 Lab Interpretation (test code = Normal 23742-3) [facility] GLUCOSE (AUTOMATED)2020-07-09 18:58:00 Test Item Value Reference Range Interpretation Comments POCT GLU (test code = 9711034315) 113 mg/dL 70-110 H Lab Interpretation (test code = Abnormal 38096-0) [facility] HospitalHEPATITIS B SURFACE [id number] 18:29:00 Test Item Value Reference Range Interpretation Comments HBsAB (test code = Negative 2047675098) HBsAb mIU/mL Semi-Quantitative (test code = 2415154230) MILAD (test code = Interpretation: MILAD) ?Hepatitis B Surface Antibody ? Negative - Patient is considered to be not immune to infection with HBV. ? ? Positive - Anti-HBs detected at greater than or equal to 12 mIU/mL. ?Patient is considered to be immune to infection with HBV. ? [facility] HospitalHBC ANTIBODY (IGM & IGG)2020-07-09 18:29:00 Test Item Value Reference Range Interpretation Comments HBC (test code = 6105702202) Negative HBC Semi-Quantitative (test code = 3716096588) [facility] HospitalHCV [id number] 18:29:00 Test Item Value Reference Range Interpretation Comments HCV Ab (test code = 19842-6) Negative HCV Semi-Quantitative (test code = 52050-5) [facility] HospitalHEPATITIS B SURFACE [id number] 18:10:00 Test Item Value Reference Range Interpretation Comments HBsAg Semi-Quantitative (test code = Negative Negative 5195-3) [facility] HospitalINTACT PTH CALCIUM [id number] 15:56:00 Test Item Value Reference Range Interpretation Comments PTH-INTACT (test code = 29.6 pg/mL 4143648837) PTH-CA Interpretation Furthe r clinical (test code = 0289354379) yosvany a needed for interpretation. CALCIUM (test code = 8.5 mg/dL 8.6-10.6 L 7361274396) Lab Interpretation (test Abnormal code = 64070-5) [facility] HospitalVancomycin Trough Level - Draw no more than 60 minutes before the 0900 dose.2020-07-09 15:09:00 Test Item Value Reference Range Interpretation Comments VANCO TROUGH (test code 12.4 ug/mL 10-20 = 9303451943) MILAD (test code = MILAD) Toxic Range: ?>20 ug/mL 15-20 ug/mL is recommended for severe infection or when Vancomycin JENNI is greater than or equal to 2. Lab Interpretation (test Normal code = 16751-3) [facility] GLUCOSE (AUTOMATED)2020-07-09 14:17:00 Test Item Value Reference Range Interpretation Comments POCT GLU (test code = 6862236413) 97 mg/dL 70-110 Lab Interpretation (test code = Normal 42874-1) [facility] GLUCOSE (AUTOMATED)2020-07-09 14:17:00 Test Item Value Reference Range Interpretation Comments POCT GLU (test code = 6820157518) 116 mg/dL 70-110 H Lab Interpretation (test code = Abnormal 79215-4) [facility] METABOLIC PANEL (NA, K, CL, CO2, GLUCOSE, BUN, CREATININE, CA)2020-07-09 13:02:00 Test Item Value Reference Range Interpretation Comments NA (test code = 136 mmol/L 135-145 4749933270) K (test code = 3.8 mmol/L 3.5-5 4351379962) CL (test code = 109 mmol/L 98-108 H 1473919298) CO2 TOTAL (test code = 23 mmol/L 23-31 3380026124) AGAP (test code = 2-16 6657265826) BUN (test code = 24 mg/dL 7-23 H 8270592099) GLUCOSE (test code = 117 mg/dL 70-110 H 2301589145) CREATININE (test code = 1.56 mg/dL 0.6-1.25 H 7734507946) CALCIUM (test code = 8.5 mg/dL 8.6-10.6 L 0651922161) eGFR Calculation mL/min/1.73m2 (Non-) (test code = 2914745666) eGFR Calculation mL/min/1.73m2 () (test code = 5072205119) MILAD (test code = MILAD) Association of Glomerular Filtration Rate (GFR) and Staging of Kidney Disease* + --+ --+ ------+| GFR (mL/min/1.73 m2) ?| With Kidney Damage ?| ?Without Kidney Damage+ --------+ --------+ +| ?>90 ?| ?Stage one ?| ? Normal ?+ ---+ ---+ -------+| ?60-89 ?| ?Stage two ?| ? Decreased GFR ? + --+ --+ ------+| ?30-59 ?| ?Stage three ?| ? Stage three ? + --+ --+ ------+| ?15-29 ?| ?Stage four ? | ? Stage four ?+ ---+ ---+ -------+| ?<15 (or dialysis) ? ?| ?Stage five ? | ? Stage five ?+ ---+ ---+ -------+ *Each stage assumes the associated GFR level has been in effect for at least three months. ?Stages 1 to 5, with or without kidney disease, indicate chronic kidney disease. Notes: Determination of stages one and two (with eGFR >59mL/min/1.73 m2) requires estimation of kidney damage for at least three months as defined by structural or functional abnormalities of the kidney, manifested by either:Pathological abnormalities or Markers of kidney damage (including abnormalities in the composition of the blood or urine or abnormalities in imaging tests). Lab Interpretation Abnormal (test code = 25435-9) [facility] GLUCOSE (AUTOMATED)2020-07-08 22:45:00 Test Item Value Reference Range Interpretation Comments POCT GLU (test code = 7225913902) 183 mg/dL 70-110 H Lab Interpretation (test code = Abnormal 23502-4) [facility] GLUCOSE (AUTOMATED)2020-07-08 18:08:00 Test Item Value Reference Range Interpretation Comments POCT GLU (test code = 9370551838) 240 mg/dL 70-110 H Lab Interpretation (test code = Abnormal 27668-2) [facility] HospitalVITAMIN D, [id number] 17:21:00 Test Item Value Reference Range Interpretation Comments VIT D 25OH (test code = <13 25-80 L 46164-5) MILAD (test code = MILAD) Deficiency: <20 ng/mLInsufficiency: 20-24 ng/mLOptimal: 25-80 ng/mL Lab Interpretation (test Abnormal code = 82066-1) [facility] GLUCOSE (AUTOMATED)2020-07-08 14:04:00 Test Item Value Reference Range Interpretation Comments POCT GLU (test code = 3485911424) 256 mg/dL 70-110 H Lab Interpretation (test code = Abnormal 05074-6) [facility] HospitalBASIC METABOLIC PANEL (NA, K, CL, CO2, GLUCOSE, BUN, CREATININE, CA)2020-07-08 12:04:00 Test Item Value Reference Range Interpretation Comments NA (test code = 133 mmol/L 135-145 L 0585025136) K (test code = 4.2 mmol/L 3.5-5 1926492521) CL (test code = 107 mmol/L 98-108 8626366547) CO2 TOTAL (test code = 23 mmol/L 23-31 7127126966) AGAP (test code = 2-16 0014546645) BUN (test code = 26 mg/dL 7-23 H 2778472102) GLUCOSE (test code = 241 mg/dL 70-110 H 5353603222) CREATININE (test code = 1.73 mg/dL 0.6-1.25 H 0261129137) CALCIUM (test code = 8.1 mg/dL 8.6-10.6 L 4606926246) eGFR Calculation mL/min/1.73m2 (Non-) (test code = 4161054591) eGFR Calculation mL/min/1.73m2 () (test code = 5628425568) MILAD (test code = MILAD) Association of Glomerular Filtration Rate (GFR) and Staging of Kidney Disease* + --+ --+ ------+| GFR (mL/min/1.73 m2) ?| With Kidney Damage ?| ?Without Kidney Damage+ --------+ --------+ +| ?>90 ?| ?Stage one ?| ? Normal ?+ ---+ ---+ -------+| ?60-89 ?| ?Stage two ?| ? Decreased GFR ? + --+ --+ ------+| ?30-59 ?| ?Stage three ?| ? Stage three ? + --+ --+ ------+| ?15-29 ?| ?Stage four ? | ? Stage four ?+ ---+ ---+ -------+| ?<15 (or dialysis) ? ?| ?Stage five ? | ? Stage five ?+ ---+ ---+ -------+ *Each stage assumes the associated GFR level has been in effect for at least three months. ?Stages 1 to 5, with or without kidney disease, indicate chronic kidney disease. Notes: Determination of stages one and two (with eGFR >59mL/min/1.73 m2) requires estimation of kidney damage for at least three months as defined by structural or functional abnormalities of the kidney, manifested by either:Pathological abnormalities or Markers of kidney damage (including abnormalities in the composition of the blood or urine or abnormalities in imaging tests). Lab Interpretation Abnormal (test code = 44791-8) [facility] GLUCOSE (AUTOMATED)2020-07-07 22:50:00 Test Item Value Reference Range Interpretation Comments POCT GLU (test code = 0279776869) 177 mg/dL 70-110 H Lab Interpretation (test code = Abnormal 51721-1) [facility] HospitalCT [facility] RIGHT WO [id number] 21:00:[address] evidence of osteomyelitis. Cellulitis of the second toe. Preliminary Report Dictated by Resident: Elham Howard MD., have reviewed this study and agree with the abovereport.Exam: CT FOOT RIGHT WO CONTRAST HISTORY: Right second toe diabetic ulcer, r/o osteomyelitis COMPARISON: Radiographs from 07/06/2020 TECHNIQUE: Axial CT imaging through the right foot was performed without IVcontrast. Coronal and sagittal reformats were obtained and reviewed. FINDINGS: CT images of the right foot demonstrate skin irregularity/ulceration overthe second toe centered over the middle phalanx with underlyingsubcutaneous soft tissue stranding/edema. A small volume of fluid alsotracks aroundthe dorsal lateral aspect of the foot. No organized softtissue collection or abscess is seen within the limitations of anoncontrast CT. No osseous erosion or periosteal reaction is identified. Noacute fracture or dislocation is present. Joint alignment is anatomic andjoint spaces are preserved. Periarticular osteopenia is noted Tinyposterior calcaneal enthesophyte formation is noted. Scattered degenerativecysts are noted in the midfoot with minimal dorsal talonavicular jointmarginal osteophytosis. Ch ronically remodeled hallux sesamoids are present.Diabetic type vascular calcifications are present. [facility], Radiant Results Inft User - 07/07/2020 3:01 PM CSTExam: CT FOOT RIGHT WO CONTRASTHISTORY: Rightsecond toe diabetic ulcer, r/o osteomyelitis COMPARISON: Radiographs from 07/06/2020TECHNIQUE: Axial CT imaging through the right foot was performed without IVcontrast. Coronal and sagittal reformats were obtained and reviewed.FINDINGS:CT images of the right foot demonstrate skin irregularity/ulceration overthe second toe centered over the middle phalanx with underlyingsubcutaneous soft tissue stranding/edema. A small volume of fluid alsotracks around the dorsal lateral aspect of the foot. No organized softtissue collection or abscess is seen within the limitations of anoncontrast CT. No osseous erosion or periosteal reaction is identified. Noacute fracture or dislocation is present. Joint alignment is anatomic andjoint spaces are preserved. Periarticular osteopenia is noted Tinyposterior calcaneal enthesophyte formation is noted. Scattered degenerativecysts are noted in the midfoot with minimal dorsal talonavicular jointmarginal osteophytosis. Chronically remodeled hallux sesamoids are present.Diabetic type vascular calcifications are present.IMPRESSIONNo CT evidence of osteomyelitis.Cellulitis of the second toe.Preliminary Report Dictated by Resident: Elham Castillo MD., have reviewed this study and agree with the abovereport. [facility] HospitalPROTEIN CREAT RATIO URINE [id number] 19:40:00 Test Item Value Reference Range Interpretation Comments T. PROT U (test code = 457 mg/dL 2888-6) CREAT U (test code = 38.2 mg/dL 3820447168) Protein/Creatinine Ratio 0.0-2.0 H Urine (test code = 4892361325) MILAD (test code = MILAD) Random Urine Total Protein Reference Ranges Random Specimen: ? Less than 10 mg/dLFirst Morning Specimen: ? ?Less than 20 mg/dL ? Lab Interpretation (test Abnormal code = 49119-0) [facility]2020-07-07 17:54:00 Test Item Value Reference Range Interpretation Comments POCT GLU (test code = 1670515729) 241 mg/dL 70-110 H Lab Interpretation (test code = Abnormal 45788-6) [facility] HospitalUS RETROPERITONEAL [id number] 15:45:02 No hydronephrosis. Normal kidneys.US RETROPERITONEAL LIMITED 07/07/2020 8:05 AM HISTORY: Evaluate forobstructive uropathy . COMPARISON: None. FINDINGS: RIGHT KIDNEY: Length of 10.4 cm. Normal cortical thickness and echotexture.No hydronephrosis. LEFT KIDNEY: Length of 11.2 cm. Normal cortical thickness and echotexture.No hydronephrosis. [facility], Radiant Results Inft User - 07/07/2020 9:46 AM CSTUS RETROPERITONEAL LIMITED 07/07/2020 8:05 AMHISTORY: Evaluate for obstructive uropathy . COMPARISON: None.FINDINGS: RIGHT KIDNEY: Length of 10.4 cm. Normal cortical thickness and echotexture.No hydronephrosis.LEFT KIDNEY: Length of 11.2 cm. Normal cortical thickness and echotexture.No hydronephrosis.IMPRESSIONNo hydronephrosis. Normal kidneys.[facility] GLUCOSE (AUTOMATED)2020-07-07 13:50:00 Test Item Value Reference Range Interpretation Comments POCT GLU (test code = 2909237795) 219 mg/dL 70-110 H Lab Interpretation (test code = Abnormal 31760-9) [facility] Metabolic Panel (NA, K, CL, CO2, GLUCOSE, BUN, CREATININE, CA)2020-07-07 11:10:00 Test Item Value Reference Range Interpretation Comments NA (test code = 136 mmol/L 135-145 1340791646) K (test code = 3.8 mmol/L 3.5-5 9001478862) CL (test code = 108 mmol/L 98-108 6073930070) CO2 TOTAL (test code = 26 mmol/L 23-31 7199230900) AGAP (test code = 2-16 5038674771) BUN (test code = 24 mg/dL 7-23 H 7090704643) GLUCOSE (test code = 201 mg/dL 70-110 H 8446114719) CREATININE (test code = 1.70 mg/dL 0.6-1.25 H 2721516165) CALCIUM (test code = 8.0 mg/dL 8.6-10.6 L 0093460276) eGFR Calculation mL/min/1.73m2 (Non-) (test code = 8874550800) eGFR Calculation mL/min/1.73m2 () (test code = 9424105084) MILAD (test code = MILAD) Association of Glomerular Filtration Rate (GFR) and Staging of Kidney Disease* + --+ --+ ------+| GFR (mL/min/1.73 m2) ?| With Kidney Damage ?| ?Without Kidney Damage+ --------+ --------+ +| ?>90 ?| ?Stage one ?| ? Normal ?+ ---+ ---+ -------+| ?60-89 ?| ?Stage two ?| ? Decreased GFR ? + --+ --+ ------+| ?30-59 ?| ?Stage three ?| ? Stage three ? + --+ --+ ------+| ?15-29 ?| ?Stage four ? | ? Stage four ?+ ---+ ---+ -------+| ?<15 (or dialysis) ? ?| ?Stage five ? | ? Stage five ?+ ---+ ---+ -------+ *Each stage assumes the associated GFR level has been in effect for at least three months. ?Stages 1 to 5, with or without kidney disease, indicate chronic kidney disease. Notes: Determination of stages one and two (with eGFR >59mL/min/1.73 m2) requires estimation of kidney damage for at least three months as defined by structural or functional abnormalities of the kidney, manifested by either:Pathological abnormalities or Markers of kidney damage (including abnormalities in the composition of the blood or urine or abnormalities in imaging tests). Lab Interpretation Abnormal (test code = 82755-5) [facility] with [id number] 10:55:00 Test Item Value Reference Range Interpretation Comments WBC (test code = See_Comment [Automated 0090-2) message] The sy stem which generated this result transmitted reference range : 4.20 - 10.70 10*3/?L. The reference range was not used to interpret this result as normal/abnormal . RBC (test code = See_Comment L [Automated 249-8) message] The sy stem which generated this result transmitted reference range : 4.26 - 5.52 10*6/?L. The reference range was not used to interpret this result as normal/abnormal . HGB (test code = 11.0 g/dL 12.2-16.4 L 718-7) HCT (test code = 32.2 % 38.4-49.3 L 4544-3) MCV (test code = 92.0 fL 81.7-95.6 787-2) MCH (test code = 31.4 pg 26.1-32.7 785-6) MCHC (test code = 34.2 g/dL 31.2-35 786-4) RDW-SD (test code = 41.2 fL 38.5-51.6 49990-9) RDW-CV (test code = 12.2 % 12.1-15.4 788-0) PLT (test code = See_Comment [Automated 777-3) message] The sy stem which generated this result transmitted reference range : 150 - 328 10*3/ ?L. The reference r taye was not used to interpret this result as normal/abnormal . MPV (test code = 10.3 fL 9.8-13 93706-8) NRBC/100 WBC (test See_Comment [Automat ed code = 0070542070) message] The system which generated this result transmitted reference range : 0.0 - 10.0 /100 WBCs. The refer ence range was not u sed to interpret th is result as normal/abnormal . NRBC x10^3 (test code <0.01 See_Comment [Auto mated = 9591778334) message] The s ystem which generated this result transmitted reference range : 10*3/?L. The reference range was not used to interpret this result as normal/abnormal . GRAN MAT (NEUT) % 54.7 % (test code = 770-8) IMM GRAN % (test code 0.40 % = 2926822923) LYMPH % (test code = 33.5 % 736-9) MONO % (test code = 8.7 % 5905-5) EOS % (test code = 2.3 % 713-8) BASO % (test code = 0.4 % 706-2) GRAN MAT x10^3(ANC) 4.20 10*3/uL 1.99-6.95 (test code = 5941527535) IMM GRAN x10^3 (test 0.03 10*3/uL 0-0.06 code = 9007448290) LYMPH x10^3 (test code 2.57 10*3/uL 1.09-3.23 = 731-0) MONO x10^3 (test code 0.67 10*3/uL 0.36-1.02 = 742-7) EOS x10^3 (test code = 0.18 10*3/uL 0.06-0.53 711-2) BASO x10^3 (test code 0.03 10*3/uL 0.01-0.09 = 704-7) Lab Interpretation Abnormal (test code = 37052-8) [facility]00 Test Item Value Reference Range Interpretation Comments POCT GLU (test code = 2962188486) 190 mg/dL 70-110 H Lab Interpretation (test code = Abnormal 84973-8) [facility]2020[facility]07-[facility] 22:44:00 Test Item Value Reference Range Interpretation Comments POCT GLU (test code = 6501551574) 325 mg/dL 70-110 H Lab Interpretation (test code = Abnormal 82312-9) [facility]A1C)2020-07-06 19:14:00 Test Item Value Reference Range Interpretation Comments HGB A1C (test code = 11.3 % 4-6 H 4548-4) MILAD (test code = MILAD) %A1C (NGSP) Interpretation (ADA)4.8-5.6 ? ? Normal or (Non-Diabetic Range)5.7-6.4 ? ? Increased Risk (Pre-Diabetic)>6.5 ?Diabetes Indicated Lab Interpretation Abnormal (test code = 97745-9) [facility]ID TEST[facility])2020-07-06 17:22:00 Test Item Value Reference Range Interpretation Comments SARS-CoV-2 Rapid ID NOW Not Detected Not Detected (test code = 21395-9) MILAD (test code = MILAD) ID NOW COVID-19 Assay is an isothermal nucleic acid amplification test intended for the qualitative detection of nucleic acid from SARS-CoV-2 viral RNA in nasopharyngeal (FLOORS BUFFER) specimens. It is used under Emergency Use Authorization (EUA) by FDA. The limit of detection (LOD) of the assay is 125 Genome Equivalents/mL. A positive result is indicative of the presence of SARS-CoV-2 RNA. ?Clinical correlation with patient history and other diagnostic information is necessary to determine patient infection status. A negative (Not Detected) result does not preclude SARS-CoV-2 infection. In patients with clinical symptoms and other tests that are consistent with SARS-CoV-2 infection, negative results should be treated as presumptive negative and a new specimen should be tested with alternative PCR molecular test. Invalid: Please collect a new specimen for repeat patient testing if clinically indicated. Lab Interpretation Normal (test code = 18602-8) [facility]ED[facility] [id number] 16:27:00 Test Item Value Reference Range Interpretation Comments ESR (test code = See_Comment H [Automated message] [id number]) The system [employer] generated this result transmitted ref erence range: 0 - 10 m m/HR. The reference r taye was not used to interpret this result as normal/abnor mal. Lab Interpretation (test Abnormal code = 98480-0) [facility] VW [id number] 16:24:26 Soft tissue swelling with no acute bony destruction or fracture identified. EXAM: XR FOOT 3+ VW RIGHT HISTORY: right 1&2 toe infection COMPARISON: None FINDINGS: Imaging of the right foot demonstrates diffuse diabetic type vascularcalcifications. No bony destructive change or acute fracture is pre sent.Calcaneal enthesophyte formation is seen. Forefoot soft tissue swelling is present. [facility], Radiant Results Inft User - 07/06/2020 10:25 AM CSTEXAM:XR FOOT 3+ VW RIGHTHISTORY:right 1&2 toe infection COMPARISON:NoneFINDINGS: Imaging of the right foot demonstrates diffuse diabetic type vascularcalcifications. No bony destructive change or acute fracture is present.Calcaneal enthesophyte formation is seen. Forefoot soft tissue swelling is present.IMPRESSIONSoft tissue swelling with no acute bonydestruction or fracture identified.[facility]abolic Panel (NA, K, CL, CO2, GLUCOSE, BUN, CREATININE, CA)2020-07-06 16:16:00 Test Item Value Reference Range Interpretation Comments NA (test code = 133 mmol/L 135-145 L 7578567430) K (test code = 4.4 mmol/L 3.5-5 8644652225) CL (test code = 103 mmol/L 98-108 3112938941) CO2 TOTAL (test code = 27 mmol/L 23-31 4007406179) AGAP (test code = 2-16 9437904389) BUN (test code = 24 mg/dL 7-23 H 0165825638) GLUCOSE (test code = 338 mg/dL 70-110 H 2200652418) CREATININE (test code = 1.59 mg/dL 0.6-1.25 H 2749742793) CALCIUM (test code = 8.9 mg/dL 8.6-10.6 3469905635) eGFR Calculation mL/min/1.73m2 (Non-) (test code = 1737052645) eGFR Calculation mL/min/1.73m2 () (test code = 9328558493) MILAD (test code = MILAD) Association of Glomerular Filtration Rate (GFR) and Staging of Kidney Disease* + --+ --+ ------+| GFR (mL/min/1.73 m2) ?| With Kidney Damage ?| ?Without Kidney Damage+ --------+ --------+ +| ?>90 ?| ?Stage one ?| ? Normal ?+ ---+ ---+ -------+| ?60-89 ?| ?Stage two ?| ? Decreased GFR ? + --+ --+ ------+| ?30-59 ?| ?Stage three ?| ? Stage three ? + --+ --+ ------+| ?15-29 ?| ?Stage four ? | ? Stage four ?+ ---+ ---+ -------+| ?<15 (or dialysis) ? ?| ?Stage five ? | ? Stage five ?+ ---+ ---+ -------+ *Each stage assumes the associated GFR level has been in effect for at least three months. ?Stages 1 to 5, with or without kidney disease, indicate chronic kidney disease. Notes: Determination of stages one and two (with eGFR >59mL/min/1.73 m2) requires estimation of kidney damage for at least three months as defined by structural or functional abnormalities of the kidney, manifested by either:Pathological abnormalities or Markers of kidney damage (including abnormalities in the composition of the blood or urine or abnormalities in imaging tests). Lab Interpretation Abnormal (test code = 58552-3) [facility] (ALB, T.PRO, BILI T, BU/BC, ALT, AST, ALK PHOS)2020-07-06 16:16:00 Test Item Value Reference Range Interpretation Comments TOTAL BILI (test code = 2165095081) 0.6 mg/dL 0.1-1.1 BILI UNCON (test code = 0968337861) 0.5 mg/dL 0.1-1.1 BILI CONJ (test code = 4050495108) 0.0 mg/dL 0-0.3 T PROTEIN (test code = 5617531104) 6.5 g/dL 6.3-8.2 ALBUMIN (test code = 8280568730) 3.2 g/dL 3.5-5 L ALK PHOS (test code = 4274666261) 121 U/L 34-122 ALTv (test code = 1742-6) 13 U/L 5-50 AST(SGOT) (test code = 8070803970) 19 U/L 13-40 Lab Interpretation (test code = Abnormal 53508-2) [facility] with [id number] 16:02:00 Test Item Value Reference Range Interpretation Comments WBC (test code = See_Comment H [Automated 5090-2) message] The sy stem which generated this result transmitted reference range : 4.20 - 10.70 10*3/?L. The reference range was not used to interpret this result as normal/abnormal . RBC (test code = See_Comment L [Automated 789-8) message] The sy stem which generated this result transmitted reference range : 4.26 - 5.52 10*6/?L. The reference range was not used to interpret this result as normal/abnormal . HGB (test code = 12.9 g/dL 12.2-16.4 718-7) HCT (test code = 37.6 % 38.4-49.3 L 4544-3) MCV (test code = 91.3 fL 81.7-95.6 787-2) MCH (test code = 31.3 pg 26.1-32.7 785-6) MCHC (test code = 34.3 g/dL 31.2-35 786-4) RDW-SD (test code = 40.8 fL 38.5-51.6 31073-8) RDW-CV (test code = 12.2 % 12.1-15.4 788-0) PLT (test code = See_Comment [Automated 777-3) message] The sy stem which generated this result transmitted reference range : 150 - 328 10*3/ ?L. The reference r taye was not used to interpret this result as normal/abnormal . MPV (test code = 10.0 fL 9.8-13 07130-9) NRBC/100 WBC (test See_Comment [Automat ed code = 2691034146) message] The system which generated this result transmitted reference range : 0.0 - 10.0 /100 WBCs. The refer ence range was not u sed to interpret th is result as normal/abnormal . NRBC x10^3 (test code <0.01 See_Comment [Auto mated = 3281672345) message] The s ystem which generated this result transmitted reference range : 10*3/?L. The reference range was not used to interpret this result as normal/abnormal . GRAN MAT (NEUT) % 73.9 % (test code = 770-8) IMM GRAN % (test code 0.60 % = 9903249440) LYMPH % (test code = 16.1 % 736-9) MONO % (test code = 7.1 % 5905-5) EOS % (test code = 1.8 % 713-8) BASO % (test code = 0.5 % 706-2) GRAN MAT x10^3(ANC) 7.99 10*3/uL 1.99-6.95 H (test code = 2461975107) IMM GRAN x10^3 (test 0.06 10*3/uL 0-0.06 code = 1586804354) LYMPH x10^3 (test code 1.74 10*3/uL 1.09-3.23 = 731-0) MONO x10^3 (test code 0.77 10*3/uL 0.36-1.02 = 742-7) EOS x10^3 (test code = 0.19 10*3/uL 0.06-0.53 711-2) BASO x10^3 (test code 0.05 10*3/uL 0.01-0.09 = 704-7) Lab Interpretation Abnormal (test code = 96544-1) [facility] HospitalLactic Acid Whole [id number] 16:00:00 Test Item Value Reference Range Interpretation Comments LACTIC ACID (test code = 1.39 mmol/L 6766441239) [facility]
[2022-04-15 17:11] LABS: Absolute Lymphocytes (CBC) 1.3 K/uL (0.7-4.9); Hematocrit 30.1 % (39.6-49.0); Lymphocytes % 15.2 % (15.3-44.8); MCV 91.8 fL (80-100); MPV 7.6 fL (7.6-11.3); RBC Red Blood Cell Count 3.28 M/uL (4.33-5.43)
[2022-04-15 17:16] LABS: Protime INR 0.96
--- NOTE | 2022-04-15 17:18 | RAD REPORT ---
EXAM DESCRIPTION: RAD - Chest Single View - 04/15/2022 5:09 pm CLINICAL HISTORY: Malaise Chest pain. COMPARISON: Chest Single View dated 04/26/2018; Chest Pa And Lat (2 Views) dated 03/03/2017; CHEST PA AND LAT 2 VIEW dated 04/23/2014; CHEST PA AND LAT 2 VIEW dated 04/24/2013 FINDINGS: Portable technique limits examination quality. The lungs are grossly clear. The heart is normal in size. Old left posterior rib fractures. IMPRESSION: No acute intrathoracic process suspected.
--- NOTE | 2022-04-15 17:29 | RAD REPORT ---
EXAM DESCRIPTION: CT - Head Brain Wo Cont - 04/15/2022 5:21 pm CLINICAL HISTORY: AMS Headache, drowsiness COMPARISON: Head Brain Wo Cont dated 04/26/2018Head Brain Wo Cont dated 04/26/2018 TECHNIQUE: All CT scans are performed using dose optimization technique as appropriate and may inclu de automated exposure control or mA/KV adjustment according to patient size. FINDINGS: No intracranial hemorrhage, hydrocephalus or extra-axial fluid collection.Mild brain atrop hy with mild periventricular and deep white matter chronic microvascular ischemic changes.No areas of brain edema or evidence of midline shift. 17 mm oblong area diminished density anterior right basal ganglia probably related to subacute to chronic infarct. Moderate mucosal thickening right sphenoid sinus. The paranasal sinuses and mastoids are otherwise cl ear. The calvarium is intact. IMPRESSION: No acute intracranial abnormality. 17 mm subacute to chronic infarct suspected anterior right basal ganglia.
[2022-04-15 17:31] LABS: ALT/SGPT 36 U/L (12-78); AST/SGOT 19 U/L (15-37); Albumin 2.4 g/dL (3.4-5.0); Alkaline Phosphatase 90 U/L (45-117); Amylase 77 U/L (25-115); BUN Blood Urea Nitrogen 62 mg/dL (7-18); Bicarbonate 22 mmol/L (21-32); Bilirubin Direct < 0.1 mg/dL (0-0.2); Bilirubin Total 0.2 mg/dL (0.2-1.0); Creatine Phosphokinase 93 U/L (39-308); Glomerular Filtration Rate 12 ml/min (=/>90); Glucose Level 285 mg/dL (74-106); Lipase 121 U/L (73-393); Magnesium 2.9 mg/dL (1.8-2.4); Potassium 5.5 mmol/L (3.5-5.1); Sodium Level 135 mmol/L (136-145)
[2022-04-15 17:43] LABS: SARS-CoV-2 Antigen Rapid Res Negative (Negative)
[2022-04-15] MEDS ORDERED: NA CHLORIDE 0.9% 1,000 ML ONE (18:39)
[2022-04-15] MEDS ORDERED: CALCIUM GLUCONATE 1 GM IVPB 1 GM/50 ML BAG IV ONE (18:39)
[2022-04-15] MEDS ORDERED: INSULIN -REGULAR HUMAN 50 UNIT/0.5 ML ML ONE (18:39)
[2022-04-15 18:47] LABS: Urine Blood Trace-intact (Negative); Urine Glucose 1+ (Negative); Urine Protein 3+ (Negative); Urine pH 5.5 (5.0-7.0)
[2022-04-15] MEDS: D5W 1,000 ML with NA BICARB 8.4% 100 MEQ IV SCH ×2 (19:00)
[2022-04-15 19:01] LABS: Barbiturates NEGATIVE (NEGATIVE); Benzodiazepines NEGATIVE (NEGATIVE); Cocaine NEGATIVE (NEGATIVE); METHAMPHETAM NEGATIVE (NEGATIVE); Methadone NEGATIVE (NEGATIVE); Opiates NEGATIVE (NEGATIVE); Phencyclidine NEGATIVE (NEGATIVE); THC Cannibis NEGATIVE (NEGATIVE)
--- NOTE | 2022-04-15 20:00 | ER ---
Nurse's Notes [facility] Name: Velasquez Bautista Age: 61 yrs Sex: Male : 1960 Arrival Date: 04/15/2022 Time: 15:34 Bed 26 Private MD: Marc Ivan R Diagnosis: Acute Kidney Injury;right basal ganglia stroke;recent covid Presentation: 04/15 16:16 Chief complaint: His sister states that he has been not acting normal for over as week bm7 now. He has been confused and not able to walk or go to the restroom. He is not acting right. Coronavirus screen: At this time, the client does not indicate any symptoms associated with coronavirus-19. Ebola Screen: No symptoms or risks identified at this time. Initial Sepsis Screen: Does the patient meet any 2 criteria? No. Patient's initial sepsis screen is negative. Does the patient have a suspected source of infection? No. Patient's initial sepsis screen is negative. Risk Assessment: Do you want to hurt yourself or someone else? Patient reports no desire to harm self or others. Onset of symptoms is unknown. 16:16 Method Of Arrival: Wheelchair bm7 16:16 Acuity: ALIS 3 bm7 Triage Assessment: 16:17 General: Appears in no apparent distress. comfortable, Behavior is cooperative, drowsy. bm7 Pain: Complains of pain in right leg and left leg. EENT: No deficits noted. No signs and/or symptoms were reported regarding the EENT system. Neuro: Level of Consciousness is awake, alert, obeys commands, Oriented to person, place, time, situation, Primer Inserting Machine Adjuster are weak on right Weakness in right arm(s) leg(s) Gait is unsteady, Speech is slurred, Facial droop on right, Pupils are PERRLA, Denies difficulty swallowing. Cardiovascular: Patient's skin is warm and dry. Chest pain is denied. Respiratory: Reports shortness of breath at rest Onset: The symptoms/episode began/occurred one week ago , the patient has moderate shortness of breath. GI: No deficits noted. No signs and/or symptoms were reported involving the gastrointestinal system. : Parent/caregiver report the patient having incontinence. Derm: No deficits noted. No signs and/or symptoms reported regarding the dermatologic system. Musculoskeletal: No deficits noted. Historical: - Allergies: 16:17 No Known Allergies; bm7 - Home Meds: 18:56 tamsulosin 0.4 mg oral cap 1 cap once daily [Active]; glimepiride 2 mg Oral tab 1 tab tw2 once daily [Active]; atorvastatin 40 mg oral tab 1 tab once daily [Active]; hydralazine 50 mg Oral tab 1 tab 4 times per day [Active]; valsartan 40 mg oral tab 1 tab 2 times per day [Active]; furosemide 40 mg Oral tab 1 tab once daily [Active]; gabapentin 300 mg oral cap 1 cap 3 times per day [Active]; - PMHx: 18:56 Diabetes mellitus; Hypertensive disorder; Hypercholesterolemia; Leukemia; tw2 - PSHx: 16:17 Unable to Obtain; bm7 - Immunization history:: Adult Immunizations up to date, Client reports having NOT received the Covid vaccine. - Social history:: Smoking status: Patient/guardian denies using tobacco products. Screenin:53 Abuse screen: Denies threats or abuse. Nutritional screening: No deficits noted. tw2 Tuberculosis screening: No symptoms or risk factors identified. Fall Risk Secondary diagnosis (15 points) impaired mobility. 19:14 Patient has been NPO before screening. The patient is alert, able to follow commands. tw2 The patient does not exhibit slurred or garbled speech The patient is not exhibiting difficulty speaking. The patient does not exhibit difficulty understanding words. The patient is able to swallow own secretions with no drooling or need for suction. pt clears throat often The patient did not tolerate one teaspoon of water. Drooling, immediate coughing, gurgling, or clearing of the throat was noted. Bedside swallow screening discontinued. Patient kept NPO until cleared by Speech Therapy or Physician. The patient failed the bedside swallow screening. The patient will be kept NPO until cleared by Speech Therapy or Physician. Provider notified of bedside swallow screening results: Melinda WHITE. Assessment: 16:17 Reassessment: Patient appears in no apparent distress at this time. No changes from tw2 previously documented assessment. Patient and/or family updated on plan of care and expected duration. Pain level reassessed. Patient is alert, oriented x 3, equal unlabored respirations, skin warm/dry/pink. pts sister reports he was not acting right when they called him today but he hasnt been acting right for over a week, maybe 2 weeks. sister states he lives alone and she is worried about him being dehydrated and that his rv is too hot. she states he is too weak and can barely stand when we came over there today. General: Reports fatigue for and weakness. Neuro: Level of Consciousness is awake, alert, obeys commands, Oriented to person, place. Cardiovascular: Patient's skin is warm and dry. Rhythm is regular. Respiratory: Airway is patent Respiratory effort is even, unlabored, Respiratory pattern is regular, symmetrical, na. GI: No signs and/or symptoms were reported involving the gastrointestinal system. Musculoskeletal: Range of motion: intact in all extremities. 18:52 Reassessment: Patient appears in no apparent distress at this time. No changes from tw2 previously documented assessment. Patient and/or family updated on plan of care and expected duration. Pain level reassessed. Patient is alert, oriented x 3, equal unlabored respirations, skin warm/dry/pink. 20:01 Reassessment: Pts sister took patients money, $824.00 home with her, patient left with vc1 $20.00 on him. 21:20 Reassessment: Patient appears in no apparent distress at this time. No changes from ke1 previously documented assessment. 22:03 Reassessment: Patient appears in no apparent distress at this time. Patient and/or hb family updated on plan of care and expected duration. Pain level reassessed. Patient is alert, oriented x 3, equal unlabored respirations, skin warm/dry/pink. Vital Signs: 16:09 BP 146 / 67; Pulse 63; Pulse Ox 98% on R/A; iw 16:15 Pulse Ox 97.8% ; bm7 18:52 BP 169 / 69; Pulse 62; Resp 17; Pulse Ox 100% on R/A; tw2 20:30 BP 152 / 117; Pulse 62; Resp 15; Pulse Ox 100% ; Pain 00/10; ke1 22:00 BP 155 / 69; Pulse 66; Resp 18; Pulse Ox 100% ; hb Molly Coma Score: 16:45 Eye Response: spontaneous(4). Verbal Response: confused(4). Motor Response: localizes snw pain(5). Total: 13. NIH Stroke Scale Scores: 16:45 NIHSS Score: 4 snw ED Course: 15:34 Patient arrived in ED. mr Fernando:34 Marc Ivan MD is Private Physician. mr 16:17 Triage completed. bm7 16:17 Arm band placed on right wrist. bm7 16:21 Bed in low position. Call light in reach. Side rails up X2. Adult w/ patient. Cardiac tw2 monitor on. Pulse ox on. NIBP on. Warm blanket given. 16:22 Nayla Roger RN is Primary Nurse. tw2 16:29 [facility]eral[facility]C [facility] snw 16:29 Joshua Mosher DO is Attending Physician. snw 17:11 Stroke CXR 1 View In Process Unspecified. EDMS 17:23 Head Brain Wo Cont In Process Unspecified. EDMS 19:20 Primary Nurse role handed off by Nayla Roger RN tw2 19:22 Joann Kearney RN is Primary Nurse. ke1 19:30 Inserted saline lock: 22 gauge in left hand, using aseptic technique. ke1 19:56 Tresa Morales PA is Hospitalizing Provider. snw 22:03 No provider procedures requiring assistance completed. Patient admitted, IV remains in hb place. 23:40 Hospitalizing Provider role handed off by Tresa Morales PA snw 23:40 Mayelin Morgan MD is Hospitalizing Provider. snw 04/16 03:44 Wil Mary is Hospitalizing Provider. sb3 07:43 Primary Nurse role handed off by Joann Kearney RN bp 07:43 Harris Rosario, MERE is Primary Nurse. bp Administered Medications: 04/15 18:35 Not Given (provider changedd): Calcium Chloride 1 grams IVP once tw2 18:40 Drug: Insulin Regular Human 5 units {Co-Signature: aa5 (Lisa Multani RN).} Route: tw2 IVP; Site: right antecubital; 18:44 Drug: NS 0.9% 1000 ml Route: IV; Rate: 1 bolus; Site: right antecubital; tw2 18:44 Drug: Calcium Gluconate 1 grams Route: IVPB; Infused Over: 60 mins; Site: right tw2 antecubital; 20:22 Drug: D5W 1000 ml, Sodium Bicarbonate 100 mEq Route: IV; Rate: TKO; Site: left hand; ke1 20:37 Drug: Rocephin (cefTRIAXone) 1 grams Route: IV; Rate: calculated rate; Site: left hand; ke1 Medication: 18:58 VIS not applicable for this client. tw2 Point of Care Testing: Blood Glucose: 16:15 Blood Glucose: 255 mg/dL; bm7 Ranges: Outcome: 19:59 Decision to Hospitalize by Provider. snw 22:03 Admitted to ER Hold. Please see [facility] for further documentation. hb 22:03 Condition: stable 22:03 Instructed on the need for admit, Demonstrated understanding of instructions. 04/16 08:54 Patient left the ED. bp NIH Stroke Scale - NIH Stroke Score Date: 04/15/2022 Time: 16:45 Total Score = 4 1a. Level of Consciousness (LOC) - 1(Not Alert) 1b. Level of Consciousness (LOC) (Month \T\ Age) - 1(One) 1c. LOC Commands (Open \T\ Closes Eyes/Dewaxer) - 0(Both) 2. Best Gaze (Lateral Gaze Paresis) - 0(Normal) 3. Visual Field Loss - 0(No visual loss) 4. Facial Palsy - 0(Normal) 5a. Left Arm: Motor (10-second hold) - 0(No drift) 5b. Right Arm: Motor (10-second hold) - 0(No drift) 6a. Left Leg: Motor (5-second hold - always test supine) - 0(No drift) 6b. Right Leg: Motor (5-second hold - always test supine) - 0(No drift) 7. Limb Ataxia (finger/nose \T\ heel/brady - test with eyes open) - 0(Absent) 8. Sensory Loss (pinprick arms/legs/face) - 1(Mild to moderate loss) 9. Best Language: Aphasia (description/naming/reading) - 0(No aphasia) 10. Dysarthria (speech clarity - read or repeat words) - 1(Mild to Moderate) 11. Extinction and Inattention (visual/tactile/auditory/spatial/personal) - 0(No abnormality) Initials: snw Signatures: Dispatcher [employer] EDMS Melinda Peralta FNP-C [facility] MACHINIST-[facility] [place] mr Minerva Colvin, MERE SEVERINO iw Monica Espitia RN RN Nayla Roger RN RN tw2 Harris Rosario RN RN bp McCarthy, Carmella, RN RN bm7 Bree Vogel RN RN vc1 Joann Kearney RN RN ke1 Tresa Morales PA PA sb3 Lisa Multani RN aa5 Corrections: (The following items were deleted from the chart) 04/15 18:58 16:17 Home Meds: Unable to obtain; bm7 tw2
--- NOTE | 2022-04-15 20:00 | EDPHYS ---
Physician Documentation [facility] Name: Velasquez Bautista Age: 61 yrs Sex: Male : 1960 Arrival Date: 04/15/2022 Time: 15:34 Bed 26 Private MD: Marc Ivan R ED Physician Joshua Mosher HPI: 04/15 16:47 This 61 yrs old Male presents to ER via Wheelchair with complaints of snw Breathing Difficulty, Vision Problem. 16:47 The patient has shortness of breath pt was dx with CoVid 2 weeks ago, last week his snw Niece stopped by to check on him and he was altered, slow, weak. Today his Sister went to evaluate. Pt is weak, not answering questions appropriately, not himself. Onset: The symptoms/episode began/occurred gradually, and became persistent 2 weeks ago. Duration: The symptoms are continuous, and are steadily getting worse. Associated signs and symptoms:. Severity of symptoms: At their worst the symptoms were moderate severe. It is unknown whether or not the patient has had similar symptoms in the past. The patient has been recently seen by a physician: with different complaint(s), and apparently was diagnosed with Covid. Historical: - Allergies: 16:17 No Known Allergies; bm7 - Home Meds: 18:56 tamsulosin 0.4 mg oral cap 1 cap once daily [Active]; glimepiride 2 mg Oral tab 1 tab tw2 once daily [Active]; atorvastatin 40 mg oral tab 1 tab once daily [Active]; hydralazine 50 mg Oral tab 1 tab 4 times per day [Active]; valsartan 40 mg oral tab 1 tab 2 times per day [Active]; furosemide 40 mg Oral tab 1 tab once daily [Active]; gabapentin 300 mg oral cap 1 cap 3 times per day [Active]; - PMHx: 18:56 Diabetes mellitus; Hypertensive disorder; Hypercholesterolemia; Leukemia; tw2 - PSHx: 16:17 Unable to Obtain; bm7 - Immunization history:: Adult Immunizations up to date, Client reports having NOT received the Covid vaccine. - Social history:: Smoking status: Patient/guardian denies using tobacco products. ROS: 16:47 Eyes: Negative for injury, pain, redness, and discharge, ENT: Negative for injury, snw pain, and discharge, Neck: Negative for injury, pain, and swelling, Cardiovascular: Negative for chest pain, palpitations, and edema, Respiratory: Negative for shortness of breath, cough, wheezing, and pleuritic chest pain, Abdomen/GI: Negative for abdominal pain, nausea, vomiting, diarrhea, and constipation, Back: Negative for injury and pain, : Negative for injury, bleeding, discharge, and swelling, MS/Extremity: Negative for injury and deformity, Skin: Negative for injury, rash, and discoloration. 16:47 Constitutional: Positive for malaise, poor PO intake. 16:47 Neuro: Positive for altered mental status, speech changes, weakness, . Exam: 16:45 Head/Face: Normocephalic, atraumatic. Eyes: Pupils equal round and reactive to light, snw extra-ocular motions intact. Lids and lashes normal. Conjunctiva and sclera are non-icteric and not injected. Cornea within normal limits. Periorbital areas with no swelling, redness, or edema. ENT: Nares patent. No nasal discharge, no septal abnormalities noted. Tympanic membranes are normal and external auditory canals are clear. Oropharynx with no redness, swelling, or masses, exudates, or evidence of obstruction, uvula midline. Mucous membranes moist. Neck: Trachea midline, no thyromegaly or masses palpated, and no cervical lymphadenopathy. Supple, full range of motion without nuchal rigidity, or vertebral point tenderness. No Meningismus. Chest/axilla: Normal chest wall appearance and motion. Nontender with no deformity. No lesions are appreciated. Cardiovascular: Regular rate and rhythm with a normal S1 and S2. No gallops, murmurs, or rubs. Normal PMI, no JVD. No pulse deficits. Respiratory: Lungs have equal breath sounds bilaterally, clear to auscultation and percussion. No rales, rhonchi or wheezes noted. No increased work of breathing, no retractions or nasal flaring. Abdomen/GI: Soft, non-tender, with normal bowel sounds. No distension or tympany. No guarding or rebound. No evidence of tenderness throughout. Back: No spinal tenderness. No costovertebral tenderness. Full range of motion. Skin: Warm, dry with normal turgor. Normal color with no rashes, no lesions, and no evidence of cellulitis. MS/ Extremity: Pulses equal, no cyanosis. Neurovascular intact. Full, normal range of motion. Psych: Awake, alert, with orientation to person, place and time. Behavior, mood, and affect are within normal limits. 16:45 Constitutional: The patient appears awake, lethargic, listless, uncomfortable, unkempt, incontinent 16:45 Neuro: Orientation: to person, Mentation: inappropriate for stated age, slow to respond, Motor: generally weak, seizure activity, is not displayed by the patient. Vital Signs: 16:09 BP 146 / 67; Pulse 63; Pulse Ox 98% on R/A; iw 16:15 Pulse Ox 97.8% ; bm7 18:52 BP 169 / 69; Pulse 62; Resp 17; Pulse Ox 100% on R/A; tw2 20:30 BP 152 / 117; Pulse 62; Resp 15; Pulse Ox 100% ; Pain 00/10; ke1 22:00 BP 155 / 69; Pulse 66; Resp 18; Pulse Ox 100% ; hb NIH Stroke Scale Scores: 16:45 NIHSS Score: 4 snw [place] Coma Score: 16:45 Eye Response: spontaneous(4). Verbal Response: confused(4). Motor Response: localizes snw pain(5). Total: 13. MDM: 16:44 Patient medically screened. snw 19:00 Post IV fluid administration reassessment for Sepsis: Client not prescribed the 30 snw mL/kg IVF due to: concern related to renal failure. Sepsis focused reassessment complete. Focused Assessment performed: April 15, 2022 at 22:20 Heart: Regular rate/rhythm noted. Capillary refill examination performed. Capillary refill noted to be < 2 seconds. Peripheral pulse evaluation performed. Peripheral pulses noted to be 3+ normal. blanket and socks given Passive leg raise examination performed. Neuro: Neurological examination improved from previous exam. Cardio: Cardiovascular examination improved from previous exam. Heart rate and blood pressure have improved. Respiratory: Respiratory exam improved from previous exam. 19:56 Antibiotic administration: Pt with LUIS and recent CoVid with suspected viral component snw for sepsis/dehydration. 19:59 Data reviewed: vital signs, nurses notes. Data interpreted: Pulse oximetry: on room air snw is 100 %. Interpretation: normal. Counseling: I had a detailed discussion with the patient and/or guardian regarding: the historical points, exam findings, and any diagnostic results supporting the discharge/admit diagnosis, the presence of at least one elevated blood pressure reading (>120/80) during this emergency department visit, lab results, radiology results, the need for further work-up and treatment in the hospital. Physician consultation: Tresa CASTREJON was contacted at 18:40, regarding admission, to the ICU, patient's condition. Awaiting: labs results, CT scan results, X-ray results. 20:09 ED course: Sister - Minerva [phone]. ED course: Brother in - Jerson [phone]. snw 04/15 16:23 Order name: Glucose, Ancillary Testing; Complete Time: 16:33 EDMS 04/15 16:38 Order name: Amylase, Serum; Complete Time: 17:34 snw 04/15 16:38 Order name: Basic Metabolic Panel; Complete Time: 17:34 snw 04/15 16:38 Order name: CBC with Diff; Complete Time: 17:31 snw 04/15 16:38 Order name: CPK; Complete Time: 17:34 snw 04/15 16:38 Order name: Ckmb; Complete Time: 17:34 snw 04/15 16:38 Order name: Hepatic Function; Complete Time: 17:34 snw 04/15 16:38 Order name: Lipase; Complete Time: 17:34 snw 04/15 16:38 Order name: Magnesium; Complete Time: 17:34 snw 04/15 16:38 Order name: Protime (+inr); Complete Time: 17:31 snw 04/15 16:38 Order name: Ptt, Activated; Complete Time: 17:31 snw 04/15 16:38 Order name: UDS; Complete Time: 19:02 snw 04/15 16:38 Order name: Blood Culture Adult (2) snw 04/15 16:42 Order name: SARS RAPID; Complete Time: 17:47 snw 04/15 16:38 Order name: Stroke CXR 1 View; Complete Time: 17:31 snw 04/15 16:58 Order name: Head Brain Wo Cont; Complete Time: 17:31 EDMS 04/15 17:02 Order name: Procalcitonin; Complete Time: 18:13 snw 04/15 17:02 Order name: Lactate; Complete Time: 17:41 snw 04/15 18:47 Order name: Urine Dipstick-Ancillary; Complete Time: 18:49 EDMS 04/15 18:55 Order name: Urine Culture iw 04/15 18:57 Order name: Urine Microscopic Only; Complete Time: 20:53 ds4 04/15 23:14 Order name: Basic Metabolic Panel; Complete Time: 23:20 EDMS 04/16 03:20 Order name: CBC with Automated Diff; Complete Time: 03:43 EDMS 04/16 03:43 Order name: Renal Panel; Complete Time: 03:44 EDMS 04/16 03:43 Order name: Lipid Profile; Complete Time: 03:44 EDMS 04/16 03:43 Order name: Magnesium; Complete Time: 03:44 EDMS 04/16 03:43 Order name: Thyroid Stimulating Hormone; Complete Time: 03:44 EDMS 04/16 03:51 Order name: Hemoglobin A1c; Complete Time: 04:08 EDMS 04/16 08:11 Order name: Glucose, Ancillary Testing EDMS 04/15 16:38 Order name: EKG; Complete Time: 16:41 snw 04/15 16:38 Order name: Cardiac monitoring; Complete Time: 19:07 snw 04/15 16:38 Order name: EKG - Nurse/Tech; Complete Time: 19:07 snw 04/15 16:38 Order name: IV Saline Lock; Complete Time: 19:07 snw 04/15 16:38 Order name: Labs collected and sent; Complete Time: 19:07 snw 04/15 16:38 Order name: NPO; Complete Time: 19:07 snw 04/15 16:38 Order name: O2 Per Protocol; Complete Time: 19:07 snw 04/15 16:38 Order name: O2 Sat Monitoring; Complete Time: 19:07 snw 04/15 16:38 Order name: Stroke Swallow Screen; Complete Time: 19:14 snw 04/15 21:37 Order name: Social Service Consult EDVT 04/16 08:11 Order name: US EDVT 04/16 08:13 Order name: EDVT EC:40 Rate is 62 beats/min. Rhythm is regular. QRS [place] is Normal. Clinical impression: NSR snw w/ Non-specific ST/T Changes. Administered Medications: 18:35 Not Given (provider changedd): Calcium Chloride 1 grams IVP once tw2 18:40 Drug: Insulin Regular Human 5 units {Co-Signature: aa5 (Lisa Multani RN).} Route: tw2 IVP; Site: right antecubital; 18:44 Drug: NS 0.9% 1000 ml Route: IV; Rate: 1 bolus; Site: right antecubital; tw2 18:44 Drug: Calcium Gluconate 1 grams Route: IVPB; Infused Over: 60 mins; Site: right tw2 antecubital; 20:22 Drug: D5W 1000 ml, Sodium Bicarbonate 100 mEq Route: IV; Rate: TKO; Site: left hand; ke1 20:37 Drug: Rocephin (cefTRIAXone) 1 grams Route: IV; Rate: calculated rate; Site: left hand; ke1 Point of Care Testing: Blood Glucose: 16:15 Blood Glucose: 255 mg/dL; bm7 Ranges: Critical Glucose Levels:Adult <50 mg/dl or >400 mg/dl <40 mg/dl or >180 mg/dl Disposition: 20:51 Co-signature as Attending Physician, Joshua SINGH was immediately available on-site ms3 in the Emergency Department for consultation in the care of the patient.. Disposition Summary: 04/15/22 19:59 Hospitalization Ordered Hospitalization Status: Inpatient Admission snw Condition: Stable snw Problem: new snw Symptoms: are unchanged snw Bed/Room Type: Standard snw Provider: Wil Mary(04/16/22 03:44) sb3 [facility] Room Assignment: [facility](04/16/22 06:06) Diagnosis - Acute Kidney Injury snw - right basal ganglia stroke snw - recent covid snw Discharge Instructions: - Discharge Summary Sheet snw Forms: - Medication Reconciliation Form snw - SBAR form snw NIH Stroke Scale - NIH Stroke Score Date: 04/15/2022 Time: 16:45 Total Score = 4 1a. Level of Consciousness (LOC) - 1(Not Alert) 1b. Level of Consciousness (LOC) (Month \T\ Age) - 1(One) 1c. LOC Commands (Open \T\ Closes Eyes/Spinner Continuous) - 0(Both) 2. Best Gaze (Lateral Gaze Paresis) - 0(Normal) 3. Visual Field Loss - 0(No visual loss) 4. Facial Palsy - 0(Normal) 5a. Left Arm: Motor (10-second hold) - 0(No drift) 5b. Right Arm: Motor (10-second hold) - 0(No drift) 6a. Left Leg: Motor (5-second hold - always test supine) - 0(No drift) 6b. Right Leg: Motor (5-second hold - always test supine) - 0(No drift) 7. Limb Ataxia (finger/nose \T\ heel/brady - test with eyes open) - 0(Absent) 8. Sensory Loss (pinprick arms/legs/face) - 1(Mild to moderate loss) 9. Best Language: Aphasia (description/naming/reading) - 0(No aphasia) 10. Dysarthria (speech clarity - read or repeat words) - 1(Mild to Moderate) 11. Extinction and Inattention (visual/tactile/auditory/spatial/personal) - 0(No abnormality) Initials: snw Signatures: Dispatcher [employer] EDMS Harleen Valencia RN MERE mw Melinda Peralta, CODER-C CODER-Csnw Nayla Roger, MERE RN tw2 Joshua Mosher, DO ms3 Carmella Pérez, RN RN bm7 Joann eKarney RN RN keTresa Fuentes PA PA sb3 Lisa Multani RN aa5 Corrections: (The following items were deleted from the chart) 16:58 16:45 CT-STROKE BRAIN W/O CONTRAST+CT.RAD.BRZ ordered. EDVT EDMS 18:58 16:17 Home Meds: Unable to obtain; bm7 tw2 19:07 16:38 Accucheck ordered. snw tw2 21:40 19:59 Intensive Care Unit snw mw 21:40 19:59 snw mw 22:07 19:59 Physician consultation: Tresa CASTREJON was contacted at 18:40, regarding snw admission, to the ICU, patient's condition, snw 23:37 23:33 Antibiotic administration: Pt with LUIS and recent CoVid with suspected snw viral component for sepsis/dehydration, snw 23:40 19:59 Tresa Morales snw snw 04/16 03:44 04/15 23:40 Mayelin Morgan snw sb3 04/16 06:04/15 21:40 [facility] mw mw 04/16 06:04/15 21:40 [facility]
[2022-04-15] MEDS ORDERED: CEFTRIAXONE 1000 MG/VIAL ONE (20:34)
[2022-04-15 20:37] LABS: Urine Bacteria >50 /HPF (<20); Urine RBC <5 /HPF (None Seen)
--- NOTE | 2022-04-15 21:35 | P.HP ---
Certification for Inpatient Patient admitted to: Inpatient With expected LOS: >2 Midnights Patient will require the following post-hospital care: [facility] Practitioner: I am a practitioner with admitting privileges, knowledge of patient current condition, hospital course, and medical plan of care. Services: Services provided to patient in accordance with Admission requirements found in Title 42 Section 412.3 of the Code of Federal Regulations Patient History Date of Service: 04/16/22 Primary Care Provider: Marzena Reason for admission: Acute Renal Failure History of Present Illness: Patient is a 61 y/o male with hypertension, type 2 diabetes non insulin dependent, hyperlipdemia, and history of leukemia (in remission) who presented to the ED with complaints of weakness. Per patient's sister, she noticed about a week ago that he was acting differently- confused, unsteady gait, weak. He did have COVID at the time. When she checked on him again today, she noticed he had not improved and decided to bring him into the ED. Patient states he has been very weak and has not been able to get out of bed. NIHSS 4. Patient is notably slurring his words. Labs significant for sodium 135, potassium 5.5, creatinine 5.2, BUN 61, Pro-Deon 0.17, urine positive for UTI. CT brain showed "No acute intracranial abnormality. 17 mm subacute to chronic infarct suspected anterior right basal ganglia." Chest xray negative. He was given 5 units of insulin, 1 L NS, 1L D5W, 1 g calcium gluconate, 100 mEq of bicarb, and Rocephin. Potassium improved to 4.9 and Cr to 4.97. Upon my assessment, patient is only complaining of pain in his legs bilaterally. Strength and sensation intact and equal bilaterally. No facial droop noted. He is admitted for further evaluation and treatment. Allergies No Known Allergies Allergy (Verified 04/26/18 18:00) Home medications list reviewed: Yes Home Medications: Atorvastatin Calcium [Lipitor] 10 mg PO DAILY #90 tab 04/27/18 Glimepiride [Amaryl] 2 mg PO BID #60 tab 04/27/18 Lisinopril [Zestril] 10 mg PO DAILY #90 tablet 04/27/18 - Past Medical/Surgical History Diabetic: Yes -: NIDDM -: leukemia (in remission) -: hypertension -: high cholesterol -: chest tube -: bone marrow transplant Psychosocial/ Personal History: Patient lives alone in an RV. - Family History Father -: Diabetes, Kidney disease - Social History Smoking Status: Never smoker Alcohol use: No CD- Drugs: No Caffeine use: Yes Place of Residence: Home Review of Systems General: Weakness Musculoskeletal: Leg Pain Physical Examination - Physical Exam General: Alert, In no apparent distress, Oriented x3 HEENT: Atraumatic, PERRLA, EOMI, Sclerae nonicteric Neck: Supple, No LAD Respiratory: Clear to auscultation bilaterally, Normal air movement Cardiovascular: No edema, Regular rate/rhythm, Normal S1 S2 Gastrointestinal: Normal bowel sounds, No tenderness Musculoskeletal: No tenderness Integumentary: No rashes Neurological: Normal strength at 5/5 x4 extr, Normal tone, Sensation intact, Abnormal speech - Studies Laboratory Data (last 24 hrs) 04/15/22 16:48: PT 10.6, INR 0.96, APTT 25.5 04/15/22 16:48: WBC 8.8, Hgb 10.2 L, Hct 30.1 L, Plt Count 366 04/15/22 16:48: Sodium 135 L, Potassium 5.5 H, BUN 62 H, Creatinine 5.20 H*, Glucose 285 H, Magnesium 2.9 H, Total Bilirubin 0.2, AST 19, ALT 36, Alkaline Phosphatase 90, Amylase 77, Lipase 121 Assessment and Plan - Problems (Diagnosis) (1) Acute renal failure Current Visit: Yes Status: Acute Qualifiers: Acute renal failure type: unspecified Qualified Code(s): N17.9 - Acute kidney failure, unspecified (2) Hyperkalemia Current Visit: Yes Status: Acute (3) UTI (urinary tract infection) Current Visit: Yes Status: Acute Qualifiers: Urinary tract infection type: acute cystitis Hematuria presence: with hematuria Qualified Code(s): N30.01 - Acute cystitis with hematuria (4) Basal ganglia infarction Current Visit: Yes Status: Chronic (5) Type 2 diabetes mellitus Current Visit: Yes Status: Chronic Qualifiers: Diabetes mellitus custodial insulin use: without custodial use Diabetes mellitus complication status: with hyperglycemia Qualified Code(s): E11.65 - Type 2 diabetes mellitus with hyperglycemia (6) Hypertension Current Visit: Yes Status: Chronic Qualifiers: Hypertension type: primary hypertension Qualified Code(s): I10 - Essential (primary) hypertension (7) Hyperlipemia Current Visit: Yes Status: Chronic Qualifiers: Hyperlipidemia type: unspecified Qualified Code(s): E78.5 - Hyperlipidemia, unspecified - Plan -Admit patient to medical floor and monitor on telemetry -Renal US, renal panel, and nephrology consult ordered. Hold neprotoxic drugs. Monitor renal function. -Echo, carotid US, MRI stroke protocol, and neurology consult ordered -Urine electrolytes pending -A1C, lipid panel, TSH, ammonia ordered -Continue rocephin for UTI. Blood and urine cultures obtained. -Patient failed bedside swallow and is NPO. Speech therapy consult. Q6H glucose monitoring with sliding scale. -Physical therapy consult -food services coordinator consult -Monitor and replete electrolytes per protocol -Reconcile and continue home medications -Heparin for VTE ppx -Full code Minerva, sister, can be reached at [phone] Jerson, [id number], can be reached at [phone] Discharge Plan: Home Plan to discharge in: Greater than 2 days - Advance Directives Does patient have a Living Will: Yes Does patient have a Durable POA for Healthcare: Yes - Code Status/Comfort Care Code Status Assessed: Yes (Full) Critical Care: No Time Spent Managing Pts Care (In Minutes): 50
[2022-04-15] MEDS ORDERED: ONDANSETRON 4 MG/2 ML VIAL IV PRN (21:43)
[2022-04-15] MEDS ORDERED: ACETAMINOPHEN 500 MG TAB PO PRN (21:43)
[2022-04-15] MEDS ORDERED: ALBUTEROL 2.5 MG/3 ML NEB SOL NEB PRN (21:43)
[2022-04-15] MEDS ORDERED: GLUCAGON 1 MG/VIAL IM PRN (21:52)
[2022-04-15] MEDS ORDERED: D50W 25 GM/50 ML SYRINGE IV PRN (21:52)
[2022-04-15 22:11] VITALS: BMI 24.4
[2022-04-15 23:14] LABS: Potassium 4.9 mmol/L (3.5-5.1)
[2022-04-16] MEDS ORDERED: HEPARIN 5000 UNIT/ML 1 ML VIAL ONE (00:59)
[2022-04-16] MEDS: HEPARIN 5000 UNIT/ML 1 ML VIAL SQ SCH ×3 (01:00→16:24)
[2022-04-16 03:16] LABS: Absolute Lymphocytes (CBC) 2.4 K/uL (0.7-4.9); Hematocrit 27.6 % (39.6-49.0); Lymphocytes % 29.5 % (15.3-44.8); MCV 91.7 fL (80-100); MPV 7.2 fL (7.6-11.3); RBC Red Blood Cell Count 3.01 M/uL (4.33-5.43)
[2022-04-16 03:43] LABS: Albumin 2.3 g/dL (3.4-5.0); Potassium 4.6 mmol/L (3.5-5.1); Thyroid Stimulating Hormone 1.07 uIU/mL (0.360-3.740)
[2022-04-16] MEDS: INSULIN -REGULAR HUMAN 50 UNIT/0.5 ML ML SQ SCH ×3 (06:00→18:00)
[2022-04-16] MEDS ORDERED: INSULIN -REGULAR HUMAN 50 UNIT/0.5 ML ML SQ SCH (07:30)
--- NOTE | 2022-04-16 08:10 | RAD REPORT ---
EXAM DESCRIPTION: US - Renal Ultrasound-Complete - 04/15/2022 10:53 pm CLINICAL HISTORY: acute renal failure Flank pain COMPARISON: No comparisons FINDINGS: Both kidneys are mildly echogenic. The right kidney measures 9.7 x 5.5 x 3.7 cm. No hydronephrosis, focal mass or perinephric fluid. The left kidney measures 9.7 x 5.7 x 3.7 cm. Small left renal cyst. No hydronephrosis, focal mass or perinephric fluid. Mild debris seen in the urinary bladder. IMPRESSION: Mildly echogenic kidneys bilaterally likely indicate underlying medical renal disease.
--- NOTE | 2022-04-16 08:13 | RAD REPORT ---
EXAM DESCRIPTION: - CP - 04/15/2022 10:53 pm CLINICAL HISTORY: subacute infarct Headache, drowsiness, CVA symptomology COMPARISON: No comparisons TECHNIQUE: Real-time sonographic evaluation of both carotid systems was performed. Doppler interroga tion was performed with waveform tracing bilaterally. FINDINGS: Normal high resistance waveforms are noted in both external carotid arteries. The common c arotid arteries and internal carotid arteries show normal low resistance waveforms. Moderate mixed plaque is seen involving both proximal internal carotid arteries. Elevated systolic ve locities are present, on the right measuring 230 cm/second and on the left measuring 200 cm/second. T his would indicate moderate stenosis is present. Antegrade flow seen in both vertebral arteries. IMPRESSION: Moderate mixed plaque is seen in both proximal internal carotid arteries. Elevated peak systolic velocities bilaterally suggests moderately severe bilateral carotid stenosis, 50-70% based on NASCET criteria. Consider follow-up MRA of the neck vessels for further evaluation.
[2022-04-16] MEDS ORDERED: FOLIC ACID 5 MG/ML VIAL IVP SCH (09:00)
--- NOTE | 2022-04-16 10:29 | P.CNS ---
Date of Consult: 04/16/22 Reason for Consult: Renal failure Requesting Physician: valentino stephens Primary Care Provider: Marzena Chief Complaint: Acute Renal Failure History of Present Illness: 61M w/ PMHx of CKD3 presumed to be 2/2 Htn/DM, baseline SCr 1.4-1.5 as of 04/2019, Htn, HLD, DM2, hx of leukemia in remission, & recent covid infxn a week ago, who p/w generalized weakness & AMS, found to have worsened renal fxn, UTI, & possible acute vs subacute stroke. SCr is 5.2 on adm. Improved to 4.8 today. Soares catheter inserted. Has pyuria. Abx started. Renal US unremarkable. Allergies No Known Allergies Allergy (Verified 04/26/18 18:00) Home Medications: Atorvastatin Calcium [Lipitor] 10 mg PO DAILY #90 tab 04/27/18 Glimepiride [Amaryl] 2 mg PO BID #60 tab 04/27/18 Lisinopril [Zestril] 10 mg PO DAILY #90 tablet 04/27/18 - Past Medical/Surgical History Diabetic: Yes -: NIDDM -: leukemia (in remission) -: hypertension -: high cholesterol -: bone marrow transplant -: chemo -: chest tube -: bone marrow transplant Psychosocial/ Personal History: Patient lives alone in an RV. - Family History Father Medical History: Diabetes, Kidney disease - Social History Alcohol use: No CD- Drugs: No Caffeine use: Yes Place of Residence: Home Physical Examination Temp Pulse Resp BP Pulse Ox 97.4 F 66 18 155/69 H 100 04/16/22 09:12 04/16/22 09:36 04/16/22 09:36 04/16/22 09:36 04/16/22 09:12 Laboratory Data (last 24 hrs) 04/15/22 16:48: PT 10.6, INR 0.96, APTT 25.5 04/15/22 16:48: WBC 8.8, Hgb 10.2 L, Hct 30.1 L, Plt Count 366 04/15/22 16:48: Sodium 135 L, Potassium 5.5 H, BUN 62 H, Creatinine 5.20 H*, Glucose 285 H, Magnesium 2.9 H, Total Bilirubin 0.2, AST 19, ALT 36, Alkaline Phosphatase 90, Amylase 77, Lipase 121 Conclusions/Impression: # LUIS vs LUIS on CKD likely 2/2 prerenal state +/- ATN from prolonged prerenal SCr is 5.2 on adm, improved to 4.8 today Urinalysis +proteinuria +Pyuria. Abx started. F/u UCx, BCx. Renal US unremarkable F/u random urine chem, upcr, CPK, iPTH, 25OHD Insert soares Strict I/O Start NS gtt at 60 cc/hr after IV bicarb 1L is completed today # CKD3 presumed to be 2/2 Htn/DM Baseline SCr 1.4-1.5 as of 04/2019 Monitor renal panel # Acidosis 1L IV bicarb today # Hyperkalemia Improved IV fluid as above # HyperPO4 Monitor # HyperMg Monitor # Htn Cont current BP med regimen # Anemia Hgb 9.5 F/u iron panel # Acute/subacute R cerebellar stroke +AMS, generalized weakness Hx of covid infxn recently Per other services # DM2 Mngt per primary team # Hx of leukemia In remission Per other services # Dispo Dc plan to rehab facility ongoing
[2022-04-16] MEDS ORDERED: D5W 1,000 ML with NA BICARB 8.4% 100 MEQ IV SCH ×2 (10:55)
[2022-04-16] MEDS: FOLIC ACID 1 MG in NA CHLORIDE 0.9% 50 ML IV SCH (11:02)
[2022-04-16] MEDS: D5W 1,000 ML with NA BICARB 8.4% 100 MEQ IV SCH ×2 (11:03)
--- NOTE | 2022-04-16 13:19 | P.PN ---
Subjective Date of Service: 04/16/22 Primary Care Provider: Marzena Chief Complaint: Acute Renal Failure Patient has slurred speech. He is awake and alert. States he feels weak. Right facial deviation. Physical Examination - Vital Signs Temperature: 97.3 F Blood Pressure: 160/61 Pulse: 56 Respirations: 19 Pulse Ox (%): 97 - Studies Laboratory Data (last 24 hrs) 04/15/22 16:48: PT 10.6, INR 0.96, APTT 25.5 04/15/22 16:48: WBC 8.8, Hgb 10.2 L, Hct 30.1 L, Plt Count 366 04/15/22 16:48: Sodium 135 L, Potassium 5.5 H, BUN 62 H, Creatinine 5.20 H*, Glucose 285 H, Magnesium 2.9 H, Total Bilirubin 0.2, AST 19, ALT 36, Alkaline Phosphatase 90, Amylase 77, Lipase 121 Assessment And Plan - Current Problems (Diagnosis) (1) Acute CVA (cerebrovascular accident) Current Visit: Yes Status: Acute (2) Acute renal failure Current Visit: Yes Status: Acute Qualifiers: Acute renal failure type: unspecified Qualified Code(s): N17.9 - Acute kidney failure, unspecified (3) Hyperkalemia Current Visit: Yes Status: Acute (4) Hyperlipemia Current Visit: Yes Status: Chronic Qualifiers: Hyperlipidemia type: unspecified Qualified Code(s): E78.5 - Hyperlipidemia, unspecified (5) Hypertension Current Visit: Yes Status: Chronic Qualifiers: Hypertension type: primary hypertension Qualified Code(s): I10 - Essential (primary) hypertension (6) Type 2 diabetes mellitus Current Visit: Yes Status: Chronic Qualifiers: Diabetes mellitus manager long term care insulin use: without manager long term care use Diabetes mellitus complication status: with hyperglycemia Qualified Code(s): E11.65 - Type 2 diabetes mellitus with hyperglycemia - Plan Physical Exam General: Alert, In no apparent distress, Oriented x3 HEENT: Atraumatic, PERRLA, EOMI, Sclerae nonicteric Neck: Supple, no carotid bruit. Respiratory: Clear to auscultation bilaterally, Normal air movement Cardiovascular: No edema, Regular rate/rhythm, Normal S1 S2 Gastrointestinal: Normal bowel sounds, No tenderness Musculoskeletal: No tenderness Integumentary: No rashes Neurological: Normal strength at 5/5 x4 extr, Normal tone, Sensation intact, slurred speech, left facial weakness. Plan: MRI of the brain is pending. Suspect LUIS secondary to dehydration from immobility and lack of access to fluid. Patient seen by nephrology Continue IV hydration Aspirin and Plavix. High-dose Lipitor Folic acid. Echocardiogram done and the result is pending. Swallow evaluation given speech impairment. PT consult. Continue antibiotics for UTI. Monitor renal function. Disposition: Rehab pending PT eval.
[2022-04-16] MEDS: ASPIRIN EC 81 MG TAB PO SCH ×2 (13:25→16:22)
--- NOTE | 2022-04-16 13:33 | EKG ---
Test Date: 2022-04-15 Test Time: 16:38:11 Lithographic Stripper: SWAPNIL MEASUREMENT RESULTS: Intervals: Rate: 62 IA: 154 QRSD: 86 QT: 442 QTc: 448 [place]: P: 52 IA: 154 QRS: 51 T: 83 INTERPRETIVE STATEMENTS: Normal sinus rhythm Normal ECG Compared to ECG 03/05/2017 09:18:57 No significant changes Electronically Signed On 04-16-22 13:32:07 CDT by Calvin Leach
[2022-04-16 14:13] LABS: Specific Gravity 1.015 (1.005-1.030); Urine Bilirubin Negative (Negative); Urine Blood 1+ (Negative); Urine Clarity Cloudy (Clear); Urine Color Yellow (Yellow); Urine Glucose Negative (Negative); Urine Protein 3+ (Negative); Urine Urobilinogen 0.2 mg/dL (0.2-1.0); Urine pH 5.5 (5.0-7.0)
[2022-04-16 14:30] LABS: UR PROTEIN 314.1 mg/dL (<11.9); Urine Protein/Creatinine Ratio 5.07 ratio (<0.15)
[2022-04-16 14:35] LABS: Urine RBC <5 /HPF (None Seen)
[2022-04-16 14:37] LABS: Urine Bacteria Loaded /HPF (<20)
--- NOTE | 2022-04-16 14:59 | RAD REPORT ---
EXAM DESCRIPTION: MRI - Brain Wo Cont - 04/16/2022 2:46 pm CLINICAL HISTORY: subacute infarct, AMS, transient alteration of awareness COMPARISON: MRA Head Wo Cont dated 04/16/2022; Head Brain Wo Cont dated 04/15/2022 TECHNIQUE: Sagittal T1-weighted images were obtained along with axial PD, heavily T2-weighted and T2 -FLAIR images. Axial DWI and ADC mapping sequences were also obtained along with coronal heavily T2-w eighted images. FINDINGS: No intracranial hemorrhage is present. Diffusion-weighted imaging shows abnormal signal in the right cerebellar peduncle. There is corresponding diminished signal on ADC mapping in correspond ing hyperintense T2/IR signal and hypointense T1 signal. No other areas of acute or subacute infarcti on identifiable. There is moderate underlying atrophy. Ventricles are in proportion to the volume loss. Mild chronic i schemic change seen throughout the cerebral hemisphere white matter. Old infarction changes are seen along the lateral margin of the right side basal ganglia. No significant brainstem or thalamus signal abnormality. There is no edema or shift of midline structures. No extra-axial fluid collections. Jones-matter/white matter junction is preserved. Signal voids are seen as a normal finding in the major intracranial ve ssels. No globe or orbital content abnormality. No sella or supra sella abnormality. Mastoid air cells are clear. Chronic sphenoid sinus mucosal thickening seen. IMPRESSION: Nonhemorrhagic acute/subacute infarction in the right cerebellar peduncle. Underlying moderate atrophy with ventricles in proportion. Chronic ischemic changes are mild.
--- NOTE | 2022-04-16 15:05 | RAD REPORT ---
EXAM DESCRIPTION: MRI - MRA Head Wo Cont - 04/16/2022 2:43 pm CLINICAL HISTORY: CVA COMPARISON: CT head April 15, MRI brain April 16 TECHNIQUE: Axial and coronal 3D lasb-fj-lksybl image acquisition was performed. 3D rotational images were generated with source and reconstruction images reviewed. Horizontal and vertical axis rotation al views generated using MIP protocol. FINDINGS: Significant atherosclerotic change and luminal narrowing present in the horizontal petrous segment of the right internal carotid artery. Atherosclerotic calcifications and luminal narrowing a re present at the distal cavernous internal carotid artery on the right. There is motion artifact pre sent creating heterogeneous signal in the vertical petrous right ICA. Advanced atherosclerotic change s are present with significant irregular luminal narrowing throughout the cavernous portion of the le ft internal carotid artery. A1 segment of the right anterior cerebral artery is not identified and is probably absent as a normal variant. Anterior communicating artery is expected but not confirmed. There are atherosclerotic mensah ges at the origins of each anterior cerebral P2 segments. Mild atherosclerotic changes are seen in the bilateral middle cerebral artery distributions. Small po sterior communicating arteries are present. No aneurysm or vascular malformation. No named branch occlusion or vasculitis. No basilar artery stenosis. Narrowing of the distal left vertebral artery is noted. Right vertebral a rtery is dominant as a normal variant. IMPRESSION: No specific vascular abnormality seen as an explanation for the right cerebellar peduncl e infarction. Patient does have significant internal carotid artery atherosclerotic change and luminal narrowing. P osterior circulation atherosclerotic change is less prominent.
[2022-04-16] MEDS ORDERED: D10W 125 ML IV PRN (15:50)
[2022-04-16] MEDS: CEFTRIAXONE 1,000 MG in NA CHLORIDE 0.9% 50 ML IVPB SCH (16:18)
[2022-04-16] MEDS ORDERED: CEFTRIAXONE 1000 MG/VIAL ONE (16:21)
[2022-04-16] MEDS: HYDRALAZINE HCL 20 MG/ML VIAL IV PRN (18:17)
[2022-04-16] MEDS: ATORVASTATIN 40 MG TAB PO SCH (21:21)
[2022-04-16] MEDS: NA CHLORIDE 0.9% 1,000 ML IV SCH (21:46)
--- NOTE | 2022-04-17 01:00 | CON ---
Reason For Consultation: Consultation called because of a stroke. History Of Present Illness: Mr. Bautista is a 61-year-old patient with hypertension, azf-ffnidcm-ettha dent diabetes mellitus, and dyslipidemia with history of leukemia in remission who comes to the [facility] with his sister with at least a week's worth of confusion, falling to the right with unsteadiness on walking. At [facility], he was on NIH Scale Score of 4 with slurred speech, right-sided incoordination, and some weakness noted. Head CT scan showed no acute ischemic or hemorrhagic abnor malities; however, there was a suspected 17 mm subacute chronic stroke in the anterior right basal ga nglia on CT scan. His brain MRI, however, did identify the stroke again to be acute, subacute in the right cerebellar region. It did not suggest a finding of an acute stroke in the basal ganglia, but found that to be an old stroke in the basal ganglia with the biqrd-fm-qvykqiwx stroke in the right ce rebellum. There was moderate underlying chronic small vessel ischemic changes with atrophy and ventr icular expansion in proportion to loss of the brain parenchyma. Brain MRA showed no vascular abnorma lity to explain his right cerebellar peduncle infarct. There was, however, significant internal vogt tid artery atherosclerotic changes with luminal narrowing and less prominent posterior circulation at herosclerotic changes. His renal ultrasound showed mildly echogenic kidneys indicating medical renal disease. Past Medical History: As noted. Allergies: NO KNOWN DRUG ALLERGIES. Medications: At home are Lipitor 10 mg at bedtime, Amaryl 2 mg twice daily, and lisinopril 10 mg nevaeh ly. Family History: Kidney disease in father. 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 Social History: He does live alone in an . Review of Systems: Right-sided incoordination and weakness, some confusion and disorientation. However, no recent fever s, chills, myalgias, or arthralgias. No rash or headache or any change. Physical Examination: Vital Signs: Blood pressure 100/92 down to 152/61-111, respiratory rate 15-19, pulse ranged up to 66 , temperature 97.5, oxygen saturation 98%. Weight 180 pounds, height 6 feet, BMI 24.4. General: Mr. Bautista is resting in bed. He is in no significant distress. HEENT: He appears normocephalic, atraumatic. Sclerae anicteric. Oropharynx is moist. Neck: Supple. Chest: Clear. Heart: Regular. No significant edema or cyanosis. Neurological: Face is symmetric with good excursions on smiling. No obvious cranial nerve deficits. In extremities, there is incoordination on examination and some dysmetria noted in the right upper and lower extremities. Intact finger-nose and finger-brady on the right. Some decreased sensation in the arms and legs in a stocking-glove fashion. Symmetric and depressed reflexes bilaterally. He wi ll be ambulated with gait belt in physical therapy to determine his ability to ambulate safely and yesy y require an evaluation for acute inpatient rehabilitation based on his unsteadiness of gait prior to coming to the hospital. Laboratory Studies: Complete blood count with differential shows decreased hemoglobin of 9.5, white blood cell count normal at 8.1. INR 0.96. Glucose ranged from 69-102. Parathyroid hormone was elev ated at 241. TSH was normal at 1.07. LDL cholesterol 71, HDL 44, triglycerides 201. Calcium 7.6. Hemoglobin A1c is 7.2. His urine tox screen is negative. Urinalysis shows loaded with bacteria, gre ater than 50 white blood cells, 3+ esterase, 1+ blood, 3+ protein. Random urine protein elevated at 314. COVID test is negative. Assessment: Mr. Bautista is a 61-year-old patient with multiple strokes including an acute subacute ri ght cerebellar stroke. He also has basal ganglia strokes, chronic. He has multiple stroke risk fact ors including diabetes mellitus with hypertension and dyslipidemia. Plan: 1.He may be evaluated for acute inpatient rehabilitation. 2.Statin, folic acid, aspirin, and Plavix as indicated. 3.Aggressive management of diabetes mellitus, hypertension, and dyslipidemia as well. LB/MODL Voice ID: [id number] Report ID: [id number]
[2022-04-17] MEDS: HEPARIN 5000 UNIT/ML 1 ML VIAL SQ SCH ×3 (01:36→16:29)
[2022-04-17 05:00] LABS: Absolute Lymphocytes (CBC) 1.6 K/uL (0.7-4.9); Hematocrit 25.5 % (39.6-49.0); Lymphocytes % 17.7 % (15.3-44.8); MCV 93.1 fL (80-100); MPV 7.3 fL (7.6-11.3); RBC Red Blood Cell Count 2.74 M/uL (4.33-5.43)
[2022-04-17 05:17] LABS: Ferritin 1138.9 ng/mL (26-388); Potassium 4.9 mmol/L (3.5-5.1)
[2022-04-17] MEDS: INSULIN -REGULAR HUMAN 50 UNIT/0.5 ML ML SQ SCH ×4 (06:00→16:50)
[2022-04-17] MEDS: ASPIRIN EC 81 MG TAB PO SCH (09:00)
[2022-04-17] MEDS: CEFTRIAXONE 1,000 MG in NA CHLORIDE 0.9% 50 ML IVPB SCH (09:49)
[2022-04-17] MEDS: CLOPIDOGREL 75 MG TABLET PO SCH ×2 (09:51→10:36)
--- NOTE | 2022-04-17 09:51 | P.PN ---
Subjective Date of Service: 04/17/22 Primary Care Provider: Marzena Chief Complaint: Acute Renal Failure Subjective: Other (No c/o flank pain.) Physical Examination - Vital Signs Temperature: 98.5 F Blood Pressure: 155/68 Pulse: 74 Respirations: 17 Pulse Ox (%): 97 - Physical Exam General: Other (appears as his stated age) HEENT: Atraumatic, Normocephalic Neck: Supple, JVD not distended Respiratory: Other (symmetric chest expansion) Cardiovascular: No rubs, No murmurs Gastrointestinal: Soft and benign, No rebound Musculoskeletal: No clubbing Integumentary: No warmth Neurological: Normal tone Urinary: Other (no bladder distention) External genitalia: Deferred Rectal: Deferred Assessment And Plan - Plan # LUIS vs LUIS on CKD likely 2/2 prerenal state +/- ATN from prolonged prerenal SCr is 5.2 on adm, improved to 4.1 today Urinalysis +proteinuria +pyuria. Abx started. 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 Baseline SCr 1.4-1.5 as of 04/2019 Monitor renal panel # Nephrotic range proteinuria likely 2/2 DM Full proteinuria workup as outpt # Acidosis Improved Received IV bicarb, monitor # Hyperkalemia Improved IV fluid as above # HyperPO4 Monitor # HyperMg Monitor # Secondary hyperPTH Start high dose D repletion when PHos level normalized # Vit D Deficiency Start high dose D repletion when Phos level normalized # Htn BP above goal Start Amlodipine 5 mg po daily # Anemia Iron panel showed adeq iron stores Moanitor H/H # Acute/subacute R cerebellar stroke +AMS, generalized weakness Hx of covid infxn recently Per other services # DM2 Mngt per primary team # Hx of leukemia In remission Per other services # Dispo Dc plan to rehab facility ongoing
[2022-04-17] MEDS: FOLIC ACID 1 MG in NA CHLORIDE 0.9% 50 ML IV SCH (10:28)
[2022-04-17] MEDS: AMLODIPINE 5 MG TAB PO SCH (10:36)
--- NOTE | 2022-04-17 13:31 | P.PN ---
Subjective Date of Service: 04/17/22 Primary Care Provider: Marzena Chief Complaint: Acute Renal Failure Patient has slurred speech. He is awake and alert. No change in facial deviation. Currently not able to ambulate due to unsteady gait. Physical Examination - Vital Signs Temperature: 98.4 F Blood Pressure: 170/74 Pulse: 68 Respirations: 18 Pulse Ox (%): 96 Assessment And Plan - Current Problems (Diagnosis) (1) Acute CVA (cerebrovascular accident) Current Visit: Yes Status: Acute (2) Acute renal failure Current Visit: Yes Status: Acute Qualifiers: Acute renal failure type: unspecified Qualified Code(s): N17.9 - Acute kidney failure, unspecified (3) Hyperkalemia Current Visit: Yes Status: Acute (4) Hyperlipemia Current Visit: Yes Status: Chronic Qualifiers: Hyperlipidemia type: unspecified Qualified Code(s): E78.5 - Hyperlipidemia, unspecified (5) Hypertension Current Visit: Yes Status: Chronic Qualifiers: Hypertension type: primary hypertension Qualified Code(s): I10 - Essential (primary) hypertension (6) Type 2 diabetes mellitus Current Visit: Yes Status: Chronic Qualifiers: Diabetes mellitus terminal carman insulin use: without terminal carman use Diabetes mellitus complication status: with hyperglycemia Qualified Code(s): E11.65 - Type 2 diabetes mellitus with hyperglycemia - Plan Physical Exam General: Alert, In no apparent distress, Oriented x3 HEENT: Atraumatic, PERRLA, EOMI, Sclerae nonicteric Neck: Supple, no carotid bruit. Respiratory: Clear to auscultation bilaterally, Normal air movement Cardiovascular: No edema, Regular rate/rhythm, Normal S1 S2 Gastrointestinal: Normal bowel sounds, No tenderness Musculoskeletal: No tenderness Integumentary: No rashes Neurological: Normal strength at 5/5 x4 extr, Normal tone, Sensation intact, slurred speech, left facial weakness. Plan: MRI of the brain demonstrated right cerebellar peduncle acute to subacute infarct. LUIS secondary to dehydration from immobility and lack of access to fluid. Suspect baseline CKD Nephrology is following. On bicarb IV for metabolic acidosis. Continue IV hydration Aspirin and Plavix. High-dose Lipitor Folic acid. Echocardiogram done and the result is pending. Patient passed bedside swallow evaluation. He is tolerating pured diet. Awaiting swallow evaluation by speech therapy PT/OT Continue antibiotics for UTI. Monitor renal function. Disposition: He will benefit from inpatient rehab.
[2022-04-17] MEDS: NA CHLORIDE 0.9% 1,000 ML IV SCH (16:28)
[2022-04-17] MEDS: ATORVASTATIN 40 MG TAB PO SCH (22:11)
[2022-04-18] MEDS: HEPARIN 5000 UNIT/ML 1 ML VIAL SQ SCH ×3 (01:28→16:12)
[2022-04-18] MEDS: HYDRALAZINE HCL 20 MG/ML VIAL IV PRN ×3 (01:41→21:44)
[2022-04-18 04:29] LABS: Absolute Lymphocytes (CBC) 1.7 K/uL (0.7-4.9); Hematocrit 26.4 % (39.6-49.0); Lymphocytes % 20.2 % (15.3-44.8); MCV 94.2 fL (80-100); MPV 7.6 fL (7.6-11.3); RBC Red Blood Cell Count 2.81 M/uL (4.33-5.43)
[2022-04-18] MEDS: NA CHLORIDE 0.9% 1,000 ML IV SCH ×2 (04:40→21:41)
[2022-04-18] MEDS: INSULIN -REGULAR HUMAN 50 UNIT/0.5 ML ML SQ SCH ×4 (06:00→18:30)
[2022-04-18] MEDS: ASPIRIN EC 81 MG TAB PO SCH (08:57)
[2022-04-18] MEDS: FOLIC ACID 1 MG in NA CHLORIDE 0.9% 50 ML IV SCH (08:58)
[2022-04-18] MEDS: CLOPIDOGREL 75 MG TABLET PO SCH (08:58)
[2022-04-18] MEDS: CEFTRIAXONE 1,000 MG in NA CHLORIDE 0.9% 50 ML IVPB SCH (09:26)
[2022-04-18] MEDS: AMLODIPINE 5 MG TAB PO SCH (09:26)
--- NOTE | 2022-04-18 10:25 | P.PN ---
Subjective Date of Service: 04/18/22 Primary Care Provider: Marzena Chief Complaint: Acute Renal Failure Subjective: No new changes, Other (Remains bed bound.) Physical Examination - Vital Signs Temperature: 98.8 F Blood Pressure: 173/77 Pulse: 72 Respirations: 16 Pulse Ox (%): 97 - Physical Exam General: Other (appears as his stated age) HEENT: Atraumatic, Normocephalic Neck: Supple, JVD not distended Respiratory: Other (symmetric chest expansion) Cardiovascular: No rubs, No murmurs Gastrointestinal: Soft and benign, No rebound Musculoskeletal: No clubbing Integumentary: No warmth Neurological: Normal tone Urinary: Soares catheter External genitalia: Deferred Rectal: Deferred - Studies Microbiology Data (last 24 hrs): 04/15/22 19:20 Clean Catch Urine [place] Count - Final BETWEEN 10,000 & 100,000 CFU/ML 04/15/22 19:20 Clean Catch Urine - Final Escherichia Coli Assessment And Plan - Plan # LUIS vs LUIS on CKD likely 2/2 prerenal state +/- ATN from prolonged prerenal SCr is 5.2 on adm, improved to 3.8 today Urinalysis +proteinuria +pyuria. Abx started. 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 Baseline SCr 1.4-1.5 as of 04/2019 Monitor renal panel # Nephrotic range proteinuria likely 2/2 DM Full proteinuria workup as outpt # Acidosis Received IV bicarb Start po bicarb bid # Hyperkalemia Improved IV fluid as above # HyperPO4 Monitor # HyperMg Monitor # Secondary hyperPTH Start high dose D repletion when PHos level normalized # Vit D Deficiency Start high dose D repletion when Phos level normalized # Htn BP above goal Increase Amlodipine to 10 mg po daily # Anemia Iron panel showed adeq iron stores Moanitor H/H # Acute/subacute R cerebellar stroke +AMS, generalized weakness Hx of covid infxn recently Per other services # DM2 Mngt per primary team # Hx of leukemia In remission Per other services # Dispo Dc plan to rehab facility ongoing
[2022-04-18] MEDS ORDERED: AMLODIPINE 5 MG TAB PO STA (10:54)
[2022-04-18] MEDS ORDERED: ALBUTEROL 2.5 MG/3 ML NEB SOL NEB PRN (12:00)
[2022-04-18] MEDS: SODIUM BICARB 325 MG TAB PO SCH ×2 (12:21→21:41)
--- NOTE | 2022-04-18 13:44 | P.PN ---
Subjective Date of Service: 04/18/22 Primary Care Provider: Marzena Chief Complaint: Acute Renal Failure No changes in neurologic deficit. He is awake and alert. Serum creatinine is trending down slowly. Physical Examination - Vital Signs Temperature: 98.5 F Blood Pressure: 174/74 Pulse: 69 Respirations: 16 Pulse Ox (%): 98 - Studies Microbiology Data (last 24 hrs): 04/15/22 19:20 Clean Catch Urine [place] Count - Final BETWEEN 10,000 & 100,000 CFU/ML 04/15/22 19:20 Clean Catch Urine - Final Escherichia Coli Assessment And Plan - Current Problems (Diagnosis) (1) Acute CVA (cerebrovascular accident) Current Visit: Yes Status: Acute (2) Acute renal failure Current Visit: Yes Status: Acute Qualifiers: Acute renal failure type: unspecified Qualified Code(s): N17.9 - Acute kidney failure, unspecified (3) Hyperkalemia Current Visit: Yes Status: Acute (4) Hyperlipemia Current Visit: Yes Status: Chronic Qualifiers: Hyperlipidemia type: unspecified Qualified Code(s): E78.5 - Hyperlipidemia, unspecified (5) Hypertension Current Visit: Yes Status: Chronic Qualifiers: Hypertension type: primary hypertension Qualified Code(s): I10 - Essential (primary) hypertension (6) Type 2 diabetes mellitus Current Visit: Yes Status: Chronic Qualifiers: Diabetes mellitus geophysical laboratory director insulin use: without fci use Diabetes mellitus complication status: with hyperglycemia Qualified Code(s): E11.65 - Type 2 diabetes mellitus with hyperglycemia (7) UTI (urinary tract infection) Current Visit: Yes Status: Acute Qualifiers: Urinary tract infection type: acute cystitis Hematuria presence: with hematuria Qualified Code(s): N30.01 - Acute cystitis with hematuria - Plan Physical Exam General: Alert, In no apparent distress, Oriented x3 HEENT: EOMI, Sclerae nonicteric Respiratory: Clear to auscultation bilaterally, Normal air movement Cardiovascular: No edema, Regular rate/rhythm, Normal S1 S2 Gastrointestinal: Normal bowel sounds, No tenderness Musculoskeletal: No tenderness Integumentary: No rashes Neurological: Normal strength at 5/5 x4 extr, Normal tone, Sensation intact, slurred speech, left facial weakness. Incoordination. Plan: MRI of the brain demonstrated right cerebellar peduncle acute to subacute infarct. LUIS secondary to dehydration from immobility and lack of access to fluid. Suspect baseline CKD. Renal function is improving slowly. Nephrology is following. Continue normal saline and oral bicarb replacement. Aspirin and Plavix. High-dose Lipitor Folic acid. Echocardiogram done and the result is pending. Patient passed bedside swallow evaluation. He is tolerating pured diet. Awaiting swallow evaluation by speech therapy Continue PT/OT. Urine culture is growing E. coli. Continue antibiotics for UTI. Patient to complete 5 days of IV Rocephin Disposition:Inpatient rehab.
[2022-04-18 15:04] LABS: Magnesium 2.6 mg/dL (1.8-2.4); Phosphorus 3.9 mg/dL (2.5-4.9)
[2022-04-18] MEDS: ATORVASTATIN 40 MG TAB PO SCH (21:41)
[2022-04-19] MEDS: HEPARIN 5000 UNIT/ML 1 ML VIAL SQ SCH ×3 (01:00→17:41)
[2022-04-19] MEDS: INSULIN -REGULAR HUMAN 50 UNIT/0.5 ML ML SQ SCH ×4 (05:50→18:00)
[2022-04-19 06:04] LABS: Albumin 2.2 g/dL (3.4-5.0); Magnesium 2.7 mg/dL (1.8-2.4); Potassium 5.1 mmol/L (3.5-5.1)
--- NOTE | 2022-04-19 06:56 | ECHO ---
HEIGHT: 6 ft 0 in WEIGHT: 180 lb 0 oz DATE OF STUDY: 04/16/[address]: Tresa Morales 2-DIMENSIONAL: YES M.MODE: YES DOPPLER: YES COLOR FLOW: YES TDS: NO PORTABLE: YES DEFINITY: NO BUBBLE STUDY: NO DIAGNOSIS: SUBACUTE INFARCT CARDIAC HISTORY: CATHERIZATION: SURGERY: PROSTHETIC VALVE: PACEMAKER: MEASUREMENTS (cm) DIASTOLIC (NORMALS) SYSTOLIC (NORMALS) IVSd 1.5 (0.6-1.2) LA Diam 3.2 (1.9-4.0) LVEF 60% LVIDd 3.7 (3.5-5.7) LVIDs 2.6 (2.0-3.5) %FS 31% LVPWd 1.5 (0.6-1.2) Ao Diam 2.4 (2.0-3.7) 2 DIMENSIONAL ASSESSMENT: RIGHT ATRIUM: NORMAL LEFT ATRIUM: NORMAL RIGHT VENTRICLE: NORMAL LEFT VENTRICLE: NORMAL TRICUSPID VALVE: MITRAL VALVE: PULMONIC VALVE: NORMAL AORTIC VALVE: NORMAL PERICARDIAL EFFUSION: NONE AORTIC ROOT: NORMAL LEFT VENTRICULAR WALL MOTION: NORMAL DOPPLER/COLOR FLOW: MILD TRICUSPID AND MITRAL REGURGITATION. COMMENTS: NORMAL LEFT VENTRICULAR EJECTION FRACTION 55-60%. NORMAL WALL MOTION. MILD TRICUSPID AND MITRAL REGURGITATION. TECHNOLOGIST: Flako MIRANDA
[2022-04-19] MEDS ORDERED: FOLIC ACID 1 MG in NA CHLORIDE 0.9% 50 ML IV SCH (09:00)
[2022-04-19] MEDS ORDERED: FOLIC ACID 1 MG TABLET PO SCH (09:00)
[2022-04-19] MEDS: AMLODIPINE 10 MG TAB PO SCH (09:53)
[2022-04-19] MEDS: ASPIRIN EC 81 MG TAB PO SCH (09:53)
[2022-04-19] MEDS: SODIUM BICARB 325 MG TAB PO SCH ×2 (09:54→21:04)
[2022-04-19] MEDS: CEFTRIAXONE 1,000 MG in NA CHLORIDE 0.9% 50 ML IVPB SCH (09:55)
--- NOTE | 2022-04-19 13:16 | P.PN ---
Subjective Date of Service: 04/19/22 Primary Care Provider: Marzena Chief Complaint: Acute Renal Failure No major changes from yesterday. No change in slurred speech He is awake and alert. Patient tolerating pured diet. Physical Examination - Vital Signs Temperature: 98.5 F Blood Pressure: 178/79 Pulse: 71 Respirations: 14 Pulse Ox (%): 97 - Studies Microbiology Data (last 24 hrs): 04/15/22 19:20 Clean Catch Urine [place] Count - Final BETWEEN 10,000 & 100,000 CFU/ML 04/15/22 19:20 Clean Catch Urine - Final Escherichia Coli Assessment And Plan - Current Problems (Diagnosis) (1) Acute CVA (cerebrovascular accident) Current Visit: Yes Status: Acute (2) Acute renal failure Current Visit: Yes Status: Acute Qualifiers: Acute renal failure type: unspecified Qualified Code(s): N17.9 - Acute kidney failure, unspecified (3) Hyperkalemia Current Visit: Yes Status: Acute (4) Hyperlipemia Current Visit: Yes Status: Chronic Qualifiers: Hyperlipidemia type: unspecified Qualified Code(s): E78.5 - Hyperlipidemia, unspecified (5) Hypertension Current Visit: Yes Status: Chronic Qualifiers: Hypertension type: primary hypertension Qualified Code(s): I10 - Essential (primary) hypertension (6) Type 2 diabetes mellitus Current Visit: Yes Status: Chronic Qualifiers: Diabetes mellitus long wall shear operator insulin use: without care home use Diabetes mellitus complication status: with hyperglycemia Qualified Code(s): E11.65 - Type 2 diabetes mellitus with hyperglycemia (7) UTI (urinary tract infection) Current Visit: Yes Status: Acute Qualifiers: Urinary tract infection type: acute cystitis Hematuria presence: with hematuria Qualified Code(s): N30.01 - Acute cystitis with hematuria - Plan Physical Exam General: Alert, In no apparent distress, Oriented x3 HEENT: EOMI, Sclerae nonicteric Respiratory: Clear to auscultation bilaterally, Normal air movement Cardiovascular: No edema, Regular rate/rhythm, Normal S1 S2 Gastrointestinal: Normal bowel sounds, No tenderness Musculoskeletal: No tenderness Integumentary: No rashes Neurological: Normal strength at 5/5 x4 extr, Normal tone, Sensation intact, slurred speech, left facial weakness. Loss of coordination-both hands.. Plan: MRI of the brain demonstrated right cerebellar peduncle acute to subacute infarct. LUIS secondary to dehydration from immobility and lack of access to fluid. Susp ect baseline CKD. Renal function is improving slowly. Nephrology is following. IV fluid. Aspirin and Plavix. High-dose Lipitor Folic acid. Echocardiogram is unremarkable Patient passed bedside swallow evaluation. He is tolerating pured diet. Awaiting speech therapy consult Continue PT/OT. Urine culture is growing E. coli. Continue antibiotics for UTI. Patient to complete 5 days of IV Rocephin Disposition: Family requesting long-term care placement. He may also be a candidate for inpatient rehab.
[2022-04-19] MEDS: NA CHLORIDE 0.9% 1,000 ML IV SCH (14:40)
[2022-04-19] MEDS: HYDRALAZINE HCL 20 MG/ML VIAL IV PRN (21:04)
[2022-04-19] MEDS: ATORVASTATIN 40 MG TAB PO SCH (21:04)
--- NOTE | 2022-04-19 21:28 | P.PN ---
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 neurology consulted continue aspirin, plavix, statin, folic acid initially allowed for permissive hypertension PT/OT/ST consulted long-term care placement, family agreeable echo unremarkable MRA without vascular findings LUIS secondary to dehydration from immobility / prerenal/ lack of access to fluid. baseline: CKDII nephrology consulted, continue IVF Renal function is improving slowly UTI as well; continue rocephin. Ur Cx: e.coli plan to complete 5 days IV Rocephin - started 04/16; last dose: 04/20 VTE: heparin subq Code: full Dispo: Family requesting long-term care placement. Time Spent Managing Pts Care (In Minutes): 35
[2022-04-20] MEDS: HEPARIN 5000 UNIT/ML 1 ML VIAL SQ SCH ×3 (00:47→17:00)
[2022-04-20] MEDS: NA CHLORIDE 0.9% 1,000 ML IV SCH ×2 (00:48→07:20)
--- NOTE | 2022-04-20 03:03 | PN ---
Date of Progress Note: 04/19/2022 Subjective: Acute kidney injury, acute renal failure. Patient developed acute on chronic kidney inj ury. Renal function has not improved significantly. The patient has nonoliguric urine output. Ther e is a gradual improvement of serum creatinine, although azotemia remains elevated. Review of Systems: Denies fever, chills. Physical Examination: Lungs: Clear to auscultation bilaterally. HEART: S1, S2. ABDOMEN: Soft. Benign. EXTREMITIES: No edema. Impression And Plan: 1.Acute kidney injury on chronic kidney disease secondary to acute tubular necrosis with prolonged p rerenal state and hypovolemia. Patient was found to have proteinuria, pyuria. Antibiotics were star flor for urinary tract infection. Renal ultrasound did not show obstructive uropathy, although patien t had nephrotic range proteinuria, which may go along with glomerulonephritis. Plan is to screen for rhabdomyolysis. CPK level was within normal limits. Continue IV fluids for hydration. 2.Proteinuric chronic kidney disease stage 3. Previous baseline creatinine level was 1.4 to 1.5 as of April 2019. Patient has hypertension and diabetes, which may go along with diabetic kidney disea se. 3.Acidosis. Patient received bicarbonate treatment for acidosis secondary to the kidney failure. 4.Hyperkalemia, improved. Monitor potassium level. Continue low-potassium diet. Patient may need Kayexalate or Veltassa. 5.Hyperphosphatemia. Continue low phosphorus diet. Consider binders. 6.Secondary hyperparathyroidism. Patient is on high vitamin D treatment and plan is to monitor phos phorus level and resume treatment when phosphorus level is normalized. 7.Vitamin D deficiency, resume treatment with vitamin D when phosphorus level improves and normalize s. 8.Hypertension. Continue blood pressure medication. Avoid FRANCINE inhibitor. 9.Diabetes mellitus. Continue insulin recommendation from primary team. EB/MODL Voice ID: [id number] Report ID: [id number]
[2022-04-20 06:01] LABS: Albumin 2.1 g/dL (3.4-5.0)
[2022-04-20] MEDS: INSULIN -REGULAR HUMAN 50 UNIT/0.5 ML ML SQ SCH ×4 (07:30→20:54)
[2022-04-20] MEDS ORDERED: INSULIN -REGULAR HUMAN 50 UNIT/0.5 ML ML SQ SCH (07:30)
[2022-04-20] MEDS: HYDRALAZINE HCL 20 MG/ML VIAL IV PRN (08:55)
[2022-04-20] MEDS: CEFTRIAXONE 1,000 MG in NA CHLORIDE 0.9% 50 ML IVPB SCH (08:55)
[2022-04-20] MEDS: AMLODIPINE 10 MG TAB PO SCH (08:56)
[2022-04-20] MEDS: CLOPIDOGREL 75 MG TABLET PO SCH (08:56)
[2022-04-20] MEDS: ASPIRIN EC 81 MG TAB PO SCH (08:56)
[2022-04-20] MEDS: FOLIC ACID 1 MG TABLET PO SCH (08:56)
[2022-04-20] MEDS: SODIUM BICARB 325 MG TAB PO SCH ×2 (08:56→20:54)
--- NOTE | 2022-04-20 10:53 | P.PN ---
Subjective Date of Service: 04/20/22 Primary Care Provider: Marzena Chief Complaint: Acute Renal Failure today pt with Dm, HTN, brought by sisiter for AMS and unsteady gait, found to have LUIS today alert, not fully oriented Cr down to 3.3 will add coreg cont IVF for now Physical exam General: Awake, not fully oriented , NAD HEENT PERRLA, moist mucose membrane neck: supple, no elevated JVD CHEST; CTAB, no wheezes or rales HEART : RRR. Normal S1,2 no murmur or rub Abd: soft, Nt Ext: no edema Skin : No rash A?p # LUIS vs LUIS on CKD likely 2/2 prerenal state +/- ATN from prolonged prerenal SCr is 5.2 on adm, improved to 3.4 today Renal US unremarkable Urine chem non-prerenal +Nephrotic range proteinuria CPK wnl, no rhabdo Cont soares Cont IVF Strict I/O # UTI Abx # Nephrotic Proteinuric CKD3 presumed to be 2/2 Htn/DM Baseline SCr 1.4-1.5 as of 04/2019 Monitor renal panel # Acidosis Cont po bicarb bid # Secondary hyperPTH Cont Vit D #HTN BP elevated cont amlodipine will add metoprolol # Anemia Iron panel showed adeq iron stores Moanitor H/H # Acute/subacute R cerebellar stroke +AMS, generalized weakness Hx of covid infxn recently Per other services # DM2 Mngt per primary team # Hx of leukemia In remission Per other services Total time spent 45 minutes including documentation, reviewing labs , placing orders and discussing with medical team Physical Examination - Vital Signs Temperature: 98.2 F Blood Pressure: 182/77 Pulse: 70 Respirations: 16 Pulse Ox (%): 98
[2022-04-20] MEDS: METOPROLOL TAR 25 MG TAB PO SCH (18:00)
[2022-04-20] MEDS: ATORVASTATIN 40 MG TAB PO SCH (20:54)
[2022-04-21] MEDS: HEPARIN 5000 UNIT/ML 1 ML VIAL SQ SCH ×3 (01:01→17:04)
[2022-04-21 05:45] LABS: Hematocrit 24.7 % (39.6-49.0); MCV 94.4 fL (80-100); MPV 7.8 fL (7.6-11.3); RBC Red Blood Cell Count 2.62 M/uL (4.33-5.43)
[2022-04-21] MEDS: METOPROLOL TAR 25 MG TAB PO SCH ×2 (05:52→17:04)
[2022-04-21 05:57] LABS: Albumin 2.1 g/dL (3.4-5.0); Magnesium 2.4 mg/dL (1.8-2.4); Phosphorus 3.9 mg/dL (2.5-4.9)
--- NOTE | 2022-04-21 06:13 | P.PN ---
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 neurology consulted continue aspirin, plavix, statin, folic acid initially allowed for permissive hypertension PT/OT/ST consulted long-term care placement, family agreeable echo unremarkable MRA without vascular findings LUIS secondary to dehydration from immobility / prerenal/ lack of access to fluid. baseline: CKDII nephrology consulted, continue IVF - at reduced dose Renal function is improving slowly UTI as well; continue rocephin. Ur Cx: e.coli completed 5 day treatment VTE: heparin subq Code: full Dispo: Family requesting long-term care placement. suspect will be clear/stable in next 1-2 days. Pending renal function Time Spent Managing Pts Care (In Minutes): 35
[2022-04-21] MEDS: INSULIN -REGULAR HUMAN 50 UNIT/0.5 ML ML SQ SCH ×4 (07:30→20:40)
[2022-04-21] MEDS: CEFTRIAXONE 1,000 MG in NA CHLORIDE 0.9% 50 ML IVPB SCH (09:09)
[2022-04-21] MEDS: NA CHLORIDE 0.9% 1,000 ML IV SCH ×3 (09:09→13:00)
[2022-04-21] MEDS: SODIUM BICARB 325 MG TAB PO SCH ×2 (09:10→20:39)
[2022-04-21] MEDS: CLOPIDOGREL 75 MG TABLET PO SCH (09:11)
[2022-04-21] MEDS: FOLIC ACID 1 MG TABLET PO SCH (09:11)
[2022-04-21] MEDS: AMLODIPINE 10 MG TAB PO SCH (09:11)
[2022-04-21] MEDS: HYDRALAZINE HCL 20 MG/ML VIAL IV PRN (09:11)
[2022-04-21] MEDS: ASPIRIN EC 81 MG TAB PO SCH (09:11)
[2022-04-21] MEDS: HYDRALAZINE HCL 25 MG TABLET PO SCH ×2 (14:54→20:39)
[2022-04-21] MEDS: CALCITROL 0.25 MCG CAP PO SCH (14:54)
--- NOTE | 2022-04-21 16:31 | PN ---
Date of Progress Note: 04/21/2022 Subjective: The patient was admitted with acute kidney injury secondary to prerenal, poor perfusion, ATN. Kidney function has been improved significantly. Physical Examination: Vital Signs: When I saw the patient; blood pressure 188/77, pulse of 63, afebrile. The patient had good urine output of 1850, positive of 400. Chest: Clear to auscultation. Heart: S1, S2. Regular. Abdomen: Soft, nontender. Extremity: Trace edema. Neurologic: Alert. No focality. Laboratory Data: Sodium 145, potassium 5, bicarb 23, BUN 37, creatinine 3.2. Calcium 7.9, phosphoru s 3.9, magnesium 2.4, albumin 2.1. Corrected calcium is 9.5. WBC 6.6, H and H 8.9/24.7. Urinalysis ; positive for infection, nephrotic range of proteinuria with . Current Medications: The patient on include Plavix, heparin, amlodipine, atorvastatin, metoprolol 12 .5, sodium bicarb 650 b.i.d., Zofran, normal saline at 60 per hour. Assessment And Plan: 1.Acute kidney injury secondary to prerenal. Obstructive uropathy has been ruled out. Small size k idney 9.7/9.7 with nephrotic range of proteinuria mostly secondary to poor perfusion ATN/toxic ATN, o n the recovery, still looked to me on the dry side. I am going to continue current hydration. 2.Hypertension, not controlled. I am going to go ahead and decrease IV fluid to 50 per hour. We wi ll add hydralazine to the patient's regimen for better blood pressure control and we will follow up t he patient. Keep avoiding FRANCINE inhibitor or ARB. 3.Nephrotic range of proteinuria, mostly secondary to diabetes with the presence of the anemia. To rule out any light chain disease, I am going to send for serum protein electrophoresis and we will fo llow up. We will send for serology. 4.Vitamin D deficiency. We will supplement. 5.Secondary hyperparathyroidism. We will start the patient on calcitriol. 6.Anemia with nephrotic range of proteinuria and acute kidney injury. Iron deficiency anemia has be en ruled out. We will send for serum protein electrophoresis and we will follow up. 7.Urinary tract infection secondary to Escherichia coli. The patient on meropenem. We will continu e current antibiotic. We will follow up with primary. BABITA Voice ID: [id number] Report ID: [id number]
[2022-04-21] MEDS: ATORVASTATIN 40 MG TAB PO SCH (20:39)
[2022-04-21] MEDS: HYDROCODONE/APAP 5/325 MG TAB PO PRN (22:32)
[2022-04-22] MEDS: HEPARIN 5000 UNIT/ML 1 ML VIAL SQ SCH ×3 (00:08→17:27)
[2022-04-22] MEDS: METOPROLOL TAR 25 MG TAB PO SCH ×2 (05:49→17:28)
--- NOTE | 2022-04-22 06:30 | P.PN ---
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 neurology consulted continue aspirin, plavix, statin, folic acid initially allowed for permissive hypertension; remains hypertensive, adjusting medications for better control PT/OT/ST consulted long-term care placement, family agreeable echo unremarkable MRA without vascular findings LUIS secondary to dehydration from immobility / prerenal/ lack of access to fluid. baseline: CKDII nephrology consulted, continue IVF - at reduced dose Renal function is improving slowly; seems to be leveling off, may be new baseline UTI as well; Ur Cx: e.coli completed 5 day treatment dc soares 04/22 VTE: heparin subq Code: full Dispo: Family requesting long-term care placement. suspect will be clear/stable in next 1 day. Pending renal function Time Spent Managing Pts Care (In Minutes): 35
[2022-04-22 07:24] LABS: Albumin 2.1 g/dL (3.4-5.0); Phosphorus 3.9 mg/dL (2.5-4.9); Potassium 4.9 mmol/L (3.5-5.1); Thyroid Stimulating Hormone 2.38 uIU/mL (0.360-3.740)
[2022-04-22] MEDS: INSULIN -REGULAR HUMAN 50 UNIT/0.5 ML ML SQ SCH ×4 (07:30→20:56)
[2022-04-22] MEDS: SODIUM BICARB 325 MG TAB PO SCH ×2 (08:11→20:57)
[2022-04-22] MEDS: HYDRALAZINE HCL 25 MG TABLET PO SCH ×3 (08:12→20:57)
[2022-04-22] MEDS: ASPIRIN EC 81 MG TAB PO SCH (08:12)
[2022-04-22] MEDS: CLOPIDOGREL 75 MG TABLET PO SCH (08:12)
[2022-04-22] MEDS: AMLODIPINE 10 MG TAB PO SCH (08:12)
[2022-04-22] MEDS: FOLIC ACID 1 MG TABLET PO SCH (08:12)
[2022-04-22] MEDS: NA CHLORIDE 0.9% 1,000 ML IV SCH ×2 (08:15→21:00)
[2022-04-22] MEDS ORDERED: CALCITROL 0.25 MCG CAP PO SCH (13:00)
--- NOTE | 2022-04-22 13:44 | PN ---
Date of Progress Note: 04/22/2022 Subjective: The patient was admitted with acute kidney injury and severe acidosis. The acute kidney injury was secondary to small kidney with nephrotic range of proteinuria secondary to diabetes nephr opathy with toxic ATN, poor perfusion ATN. The patient was started on hydration. Kidney function is gradually improving, currently plateaued on 3.2 with GFR of 20. The patient is nonoliguric. Physical Examination: Vital Signs: Blood pressure 162/72, pulse of 71, afebrile. Chest: Clear to auscultation. Heart: S1, S2. Regular. Abdomen: Soft, nontender. Extremities: No edema. Neurologic: Alert. No focality. Laboratory Data: Sodium 144, potassium 4.9, bicarb 22, BUN 36, creatinine 3.2, calcium 7.8, phosphor us 3.9, albumin 2.1. Corrected calcium is 9.4. Serum protein electrophoresis is still pending. TSH 2.3. PTH 241. Iron saturation 35. Current Medications: The patient on include; 1.Aspirin. 2.Albuterol. 3.Heparin. 4.Amlodipine 10 mg. 5.Hydralazine 25 t.i.d. 6.Metoprolol 12.5 b.i.d. 7.Sodium bicarb 650 b.i.d. Assessment And Plan: 1.Acute kidney injury, normal-sized kidney with nephrotic range of proteinuria secondary mostly to p rerenal, poor perfusion, ATN and toxic ATN, currently plateaued. I am going to continue current hydr ation. We will monitor. 2.Chronic kidney disease, normal size to small size kidney with nephrotic range of proteinuria, most ly secondary to diabetes nephropathy with acute kidney injury as above. Keep holding any FRANCINE inhibit or or ARB. We will follow up serology, further workup for the nephrotic range of proteinuria and ser um protein electrophoresis given the presence of the anemia. 3.Hypertension. Yesterday, we started the patient on hydralazine. Blood pressure started trending down. We will follow up. Keep avoiding FRANCINE inhibitor or ARB. 4.Nephrotic range of proteinuria as above. 5.Secondary hyperparathyroidism with vitamin D deficiency. Continue current treatment with vitamin D. I am going to start the patient on calcitriol. 6.Acidosis. The patient on sodium bicarb. Acidosis resolved. We will continue to monitor. 7.Urinary tract infection secondary to Escherichia coli. The patient on meropenem. Continue lenore rogers antibiotic. We will follow up. BABITA Voice ID: [id number] Report ID: [id number]
[2022-04-22] MEDS: ATORVASTATIN 40 MG TAB PO SCH (20:57)
[2022-04-22] MEDS: HYDROCODONE/APAP 5/325 MG TAB PO PRN (21:00)
[2022-04-22 23:49] LABS: Rheumatoid Factor NEG (NEG)
[2022-04-23] MEDS: HEPARIN 5000 UNIT/ML 1 ML VIAL SQ SCH ×3 (01:17→16:21)
[2022-04-23] MEDS: METOPROLOL TAR 25 MG TAB PO SCH (05:02)
[2022-04-23] MEDS: HYDRALAZINE HCL 20 MG/ML VIAL IV PRN (05:03)
[2022-04-23 05:50] LABS: Albumin 2.1 g/dL (3.4-5.0); Phosphorus 3.7 mg/dL (2.5-4.9); Potassium 4.7 mmol/L (3.5-5.1)
--- NOTE | 2022-04-23 06:30 | P.PN ---
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 neurology consulted continue aspirin, plavix, statin, folic acid initially allowed for permissive hypertension; remains hypertensive, adjusting medications for better control PT/OT/ST consulted long-term care placement, family agreeable echo unremarkable MRA without vascular findings LUIS secondary to dehydration from immobility / prerenal/ lack of access to fluid. baseline: CKDII nephrology consulted, continue IVF - at reduced dose Renal function is improving slowly; seems to be leveling off, may be new baseline UTI as well; Ur Cx: e.coli completed 5 day treatment dc soares 04/22; check PVR VTE: heparin subq Code: full Dispo: long-term care placement. pending acceptance/approval Time Spent Managing Pts Care (In Minutes): 35
[2022-04-23] MEDS: INSULIN -REGULAR HUMAN 50 UNIT/0.5 ML ML SQ SCH ×4 (07:30→21:00)
[2022-04-23] MEDS: ASPIRIN EC 81 MG TAB PO SCH (08:37)
[2022-04-23] MEDS: CLOPIDOGREL 75 MG TABLET PO SCH (08:37)
[2022-04-23] MEDS: FOLIC ACID 1 MG TABLET PO SCH (08:37)
[2022-04-23] MEDS: AMLODIPINE 10 MG TAB PO SCH (08:37)
[2022-04-23] MEDS: HYDRALAZINE HCL 25 MG TABLET PO SCH ×4 (08:37→21:28)
[2022-04-23] MEDS: SODIUM BICARB 325 MG TAB PO SCH ×2 (08:38→21:26)
--- NOTE | 2022-04-23 10:21 | P.PN ---
Subjective Date of Service: 04/23/22 Primary Care Provider: Marzena Chief Complaint: Acute Renal Failure Subjective: Other (Bed bound. No new complaints.) Physical Examination - Vital Signs Temperature: 98.2 F Blood Pressure: 178/78 Pulse: 67 Respirations: 16 Pulse Ox (%): 97 - Physical Exam General: In no apparent distress HEENT: Atraumatic, Normocephalic Neck: Supple, JVD not distended Respiratory: Other (symmetric chest expansion) Cardiovascular: No rubs, No murmurs Gastrointestinal: Soft and benign, No rebound Musculoskeletal: No clubbing Integumentary: No warmth Neurological: Normal tone Urinary: Other (no bladder distention) External genitalia: Deferred Rectal: Deferred Assessment And Plan - Plan # LUIS vs LUIS on CKD likely 2/2 prerenal state +/- ATN from prolonged prerenal SCr is 5.2 on adm, improved/plateaued at 3.2 Cont IV fluid Encourage po fluid intake Romo d/c'ed on 04/22 Recheck bladder scan prn # E coli UTI Received abx # Proteinuric CKD3 presumed to be 2/2 Htn/DM Baseline SCr 1.4-1.5 as of 04/2019 Monitor renal panel # Nephrotic range proteinuria likely 2/2 DM Cont statin Hold off on ACEI or ARB # Acidosis Received IV bicarb Cont po bicarb # Secondary hyperPTH Calcitriol # Vit D Deficiency Start D3 5T IU po daily # Htn BP above goal Hydralazine increased Metoprolol switched to carvedilol # Anemia Iron panel showed adeq iron stores Give Epo when BP better controlled Moanitor H/H # Acute/subacute R cerebellar stroke Neurology on board PT/OT/ST # DM2 Mngt per primary team # Hx of leukemia In remission Per other services # Dispo Dc plan to rehab facility ongoing
[2022-04-23] MEDS ORDERED: HYDRALAZINE HCL 20 MG/ML VIAL IV PRN (12:00)
[2022-04-23] MEDS: CALCITROL 0.25 MCG CAP PO SCH (12:16)
[2022-04-23] MEDS: VITAMIN D 5,000 UNIT CAP PO SCH (12:16)
[2022-04-23] MEDS: NA CHLORIDE 0.9% 1,000 ML IV SCH (16:21)
[2022-04-23] MEDS: ATORVASTATIN 40 MG TAB PO SCH (21:26)
[2022-04-23] MEDS: carvediloL 6.25 MG TAB PO SCH (21:27)
[2022-04-24] MEDS: HEPARIN 5000 UNIT/ML 1 ML VIAL SQ SCH ×3 (01:22→16:44)
[2022-04-24 06:16] LABS: Hematocrit 23.8 % (39.6-49.0); MCV 94.5 fL (80-100); MPV 7.9 fL (7.6-11.3); RBC Red Blood Cell Count 2.52 M/uL (4.33-5.43)
[2022-04-24 06:35] LABS: Albumin 2.2 g/dL (3.4-5.0); Phosphorus 3.8 mg/dL (2.5-4.9); Potassium 4.9 mmol/L (3.5-5.1)
[2022-04-24 06:42] LABS: Albumin 2.1 g/dL (3.4-5.0); Bilirubin Total 0.2 mg/dL (0.2-1.0); Magnesium 2.4 mg/dL (1.8-2.4)
--- NOTE | 2022-04-24 06:46 | P.PN ---
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 HTN neurology consulted continue aspirin, plavix, statin, folic acid initially allowed for permissive hypertension; remains hypertensive, adjusting medications for better control - increased hydralazine 04/23 PT/OT/ST consulted long-term care placement, family agreeable echo unremarkable MRA without vascular findings LUIS secondary to dehydration from immobility / prerenal/ lack of access to fluid. baseline: CKDII (Cr: ~1.5) nephrology consulted renal function with slow initial improvement, now leveled off. DC IV fluids UTI as well; Ur Cx: e.coli completed 5 day treatment dc soares 04/22; check PVR anemia No evidence of bleed, fluids, LUIS on CKD contributing, transfuse for Hgb < 7 VTE: heparin subq Code: full Dispo: long-term care placement. pending acceptance/approval Time Spent Managing Pts Care (In Minutes): 35
[2022-04-24] MEDS: INSULIN -REGULAR HUMAN 50 UNIT/0.5 ML ML SQ SCH ×4 (07:30→20:09)
[2022-04-24] MEDS: VITAMIN D 5,000 UNIT CAP PO SCH (09:40)
[2022-04-24] MEDS: HYDRALAZINE HCL 25 MG TABLET PO SCH ×3 (09:40→20:14)
[2022-04-24] MEDS: SODIUM BICARB 325 MG TAB PO SCH ×2 (09:40→20:14)
[2022-04-24] MEDS: FOLIC ACID 1 MG TABLET PO SCH (09:40)
[2022-04-24] MEDS: AMLODIPINE 10 MG TAB PO SCH (09:41)
[2022-04-24] MEDS: CLOPIDOGREL 75 MG TABLET PO SCH (09:41)
[2022-04-24] MEDS: ASPIRIN EC 81 MG TAB PO SCH (09:41)
[2022-04-24] MEDS: carvediloL 6.25 MG TAB PO SCH ×2 (09:41→20:14)
[2022-04-24 19:02] LABS: HIV AG/AB 4TH GEN Non-reactive (Non-reactive)
[2022-04-24] MEDS: ATORVASTATIN 40 MG TAB PO SCH (20:14)
--- NOTE | 2022-04-25 00:30 | PN ---
Date of Progress Note: 04/24/2022 Chief Complaint: Acute kidney injury on chronic kidney disease. Subjective: The patient has nonoliguric urine output. Renal function has improved somewhat, althoug h BUN and creatinine are elevated over previous baseline. Review of Systems: Denies fever, chills. Objective: Lungs: Clear to auscultation bilaterally. Heart: S1, S2. Abdomen: Soft, benign. Extremities: No edema. Impression And Plan: 1.Acute kidney injury, on chronic kidney disease. Acute kidney injury is secondary to acute tubular necrosis from prerenal azotemia. Previous creatinine level was up to 5.2. The patient has improved in response to IV fluids. Serum creatinine is 3.2. Continue IV fluids. Monitor electrolytes. Mary ck CK level to rule out rhabdomyolysis. 2.Romo catheter was discontinued. Monitor for any evidence of urinary retention. Recheck bladder scan. 3.Urinary tract infection, status post antibiotics for Escherichia coli. 4.Proteinuria, chronic kidney disease stage 3, likely secondary to diabetes mellitus and hypertensio n. Previous baseline creatinine level was 1.4 up to 1.5. Monitor renal function. Avoid nephrotoxic medication. 5.Nephrotic range proteinuria likely secondary to diabetic kidney disease, FRANCINE inhibitor, and angiot ensin-receptor sandoval have not been used due to acute kidney injury. Monitor electrolytes and gissell nue low-potassium diet. 6.Secondary hyperparathyroidism, on calcitriol. 7.Vitamin D deficiency. Continue vitamin D treatment. 8.Hypertension. Blood pressure was elevated and the patient had medication adjusted. Hydralazine d ose was increased and metoprolol was switched to carvedilol. Monitor blood pressure and adjust medic ation for optimal blood pressure control. 9.History of leukemia, in remission per primary service. 10.Diabetes mellitus. Continue insulin. EB/MODL Voice ID: [id number] Report ID: [id number]
[2022-04-25] MEDS: HEPARIN 5000 UNIT/ML 1 ML VIAL SQ SCH ×3 (01:07→17:37)
--- NOTE | 2022-04-25 06:05 | P.PN ---
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 HTN neurology consulted continue aspirin, plavix, statin, folic acid initially allowed for permissive hypertension; remains hypertensive, adjusting medications for better control - increased hydralazine 04/23 PT/OT/ST consulted long-term care placement, family agreeable echo unremarkable MRA without vascular findings LUIS secondary to dehydration from immobility / prerenal/ lack of access to fluid. baseline: CKDII (Cr: ~1.5) nephrology consulted renal function with slow initial improvement, now leveled off. DC IV fluids UTI as well; Ur Cx: e.coli completed 5 day treatment dc'd soares 04/22; check PVR anemia No evidence of bleed, fluids, LUIS on CKD contributing, transfuse for Hgb < 7 VTE: heparin subq Code: full Dispo: long-term care placement. pending acceptance/approval Time Spent Managing Pts Care (In Minutes): 35
[2022-04-25 06:06] LABS: Hematocrit 24.4 % (39.6-49.0); MCV 94.3 fL (80-100); MPV 7.9 fL (7.6-11.3); RBC Red Blood Cell Count 2.59 M/uL (4.33-5.43)
[2022-04-25 06:18] LABS: Albumin 2.2 g/dL (3.4-5.0); Magnesium 2.3 mg/dL (1.8-2.4); Phosphorus 3.9 mg/dL (2.5-4.9); Potassium 4.9 mmol/L (3.5-5.1)
[2022-04-25] MEDS: INSULIN -REGULAR HUMAN 50 UNIT/0.5 ML ML SQ SCH ×4 (07:30→21:00)
[2022-04-25] MEDS: HYDRALAZINE HCL 25 MG TABLET PO SCH ×3 (08:15→21:22)
[2022-04-25] MEDS: AMLODIPINE 10 MG TAB PO SCH (08:16)
[2022-04-25] MEDS: CLOPIDOGREL 75 MG TABLET PO SCH (08:16)
[2022-04-25] MEDS: ASPIRIN EC 81 MG TAB PO SCH (08:16)
[2022-04-25] MEDS: carvediloL 6.25 MG TAB PO SCH ×2 (08:16→21:21)
[2022-04-25] MEDS: FOLIC ACID 1 MG TABLET PO SCH (08:16)
[2022-04-25] MEDS: VITAMIN D 5,000 UNIT CAP PO SCH (08:17)
[2022-04-25] MEDS: SODIUM BICARB 325 MG TAB PO SCH ×2 (08:34→21:22)
[2022-04-25] MEDS: CALCITROL 0.25 MCG CAP PO SCH (13:14)
[2022-04-25] MEDS: ATORVASTATIN 40 MG TAB PO SCH (21:02)
--- NOTE | 2022-04-26 00:11 | PN ---
Date of Progress Note: 04/25/2022 Chief Complaint: Acute kidney injury on chronic kidney disease stage 3. Subjective: The patient has nonoliguric urine output. Renal function has improved slightly over last 48 hours. There is a high BUN creatinine ratio and azotemia remains elevated over the previous baseline. Review of Systems: Denies fever or chills. Physical Examination: Lungs: Clear to auscultation bilaterally. Heart: S1, S2. Abdomen: Soft. Extremities: No edema. Impression And Plan: 1. Acute kidney injury on chronic kidney disease. Acute kidney injury secondary to acute tubular necrosis from prerenal azotemia. Previous creatinine level was elevated up to 5.2 and has improved in response to IV fluids. Monitor CK level to rule out rhabdomyolysis. Romo catheter was discontinued. The patient will have bladder scan to rule out urinary retention as needed. 2. Urinary tract infection status post antibiotic therapy for Escherichia coli urinary tract infection. 3. Proteinuria, chronic kidney disease stage 3. It is likely secondary to diabetes mellitus and hypertension. Baseline creatinine level was ranging from 1.4-1.5. Plan is to avoid nephrotoxic medication. The patient is not a candidate for metformin. 4. Nephrotic range proteinuria secondary to diabetic kidney disease. FRANCINE inhibitor and angiotensin receptor sandoval have not been used due to acute kidney injury and risk of hyperkalemia and worsening of the renal function. 5. Secondary hyperparathyroidism. Continue calcitriol. Monitor calcium and phosphorus level. Monitor intact PTH and make further adjustment as needed. 6. Vitamin D deficiency. Continue vitamin D treatment. 7. Hypertension. Blood pressure overall has improved. Medications were adjusted. Monitor blood pressure. Continue low-sodium diet. 8. History of leukemia, in remission, per Primary Team. ACE/LISA Voice ID: [id number] Report ID: [id number] DEVAN
[2022-04-26] MEDS: HEPARIN 5000 UNIT/ML 1 ML VIAL SQ SCH ×3 (01:33→16:33)
--- NOTE | 2022-04-26 06:48 | P.PN ---
Date of Service: 04/26/22 Subjective: stable without any new/worsening symptoms ROS: 10 point ROS as noted above, otherwise negative Physical Exam: Gen: NAD CV: regular rate & rhythm, no edema Pulm: non-labored respirations, clear bilaterally Abd: soft, non-tender, non-distended Neuro: slurred speech, left facial weakness, with incoordination b/l upper extremities vitals reviewed Problem List Acute to subacute CVA - r cerebellar involvement LUIS on CKDII UTI Hyperkalemia HLD HTN NIDDM2 MRI brain: right cerebellar peduncle acute to subacute infarct. HTN neurology consulted continue aspirin, plavix, statin, folic acid initially allowed for permissive hypertension; remains hypertensive, adjusting medications for better control - increased hydralazine 04/23 PT/OT/ST consulted long-term care placement, family agreeable echo unremarkable MRA without vascular findings LUIS secondary to dehydration from immobility / prerenal/ lack of access to fluid. baseline: CKDII (Cr: ~1.5) nephrology consulted renal function with slow initial improvement, now leveled off. DC IV fluids UTI as well; Ur Cx: e.coli completed 5 day treatment dc'd soares 04/22 anemia No evidence of bleed, fluids, LUIS on CKD contributing, transfuse for Hgb < 7 VTE: heparin subq Code: full Dispo: long-term care placement. pending acceptance/approval Time Spent Managing Pts Care (In Minutes): 25
[2022-04-26 07:24] LABS: Albumin 2.2 g/dL (3.4-5.0); Phosphorus 3.9 mg/dL (2.5-4.9); Potassium 4.7 mmol/L (3.5-5.1)
[2022-04-26] MEDS: INSULIN -REGULAR HUMAN 50 UNIT/0.5 ML ML SQ SCH ×4 (07:30→21:00)
[2022-04-26] MEDS: FOLIC ACID 1 MG TABLET PO SCH (09:12)
[2022-04-26] MEDS: VITAMIN D 5,000 UNIT CAP PO SCH (09:12)
[2022-04-26] MEDS: SODIUM BICARB 325 MG TAB PO SCH ×2 (09:13→22:17)
[2022-04-26] MEDS: carvediloL 6.25 MG TAB PO SCH ×2 (09:13→22:18)
[2022-04-26] MEDS: ASPIRIN EC 81 MG TAB PO SCH (09:13)
[2022-04-26] MEDS: AMLODIPINE 10 MG TAB PO SCH (09:13)
[2022-04-26] MEDS: CLOPIDOGREL 75 MG TABLET PO SCH (09:13)
[2022-04-26] MEDS: HYDRALAZINE HCL 25 MG TABLET PO SCH ×3 (09:13→22:17)
--- NOTE | 2022-04-26 12:08 | RAD REPORT ---
EXAM DESCRIPTION: RAD - Barium Swallow Modified - 04/26/2022 11:48 am CLINICAL HISTORY: Throat clearing with solids COMPARISON: Renal Ultrasound-Complete dated 04/15/2022 TECHNIQUE: The patient was given liquid, semi-solid and solid forms of barium. Lateral view fluorosc opic imaging was performed in conjunction with speech pathology service. FINDINGS: Pharyngeal residue: Mild residue in the vallecula and pyriform with all consistencies tested thin, puree, dry solid, whole pill w/ thin Minimal hyoid excursion, minimal epiglottic deflection, mild esophageal residue Total fluoroscopy time: 1 minutes 4 seconds
[2022-04-26] MEDS: ATORVASTATIN 40 MG TAB PO SCH (22:17)
--- NOTE | 2022-04-27 01:02 | PN ---
Date of Progress Note: 04/26/2022 Chief Complaint: Acute kidney injury on chronic kidney disease stage 3. History Of Present Illness: The patient has nonoliguric urine output. Renal function has improved s lightly over the last 72 hours. BUN and creatinine ratio is elevated. Azotemia remains elevated ove r the previous baseline. Review of Systems: Denies fever, chills. Physical Examination: Lungs: Clear to auscultation bilaterally. Heart: S1, S2. Abdomen: Soft. Extremities: No edema. Impression: 1.Acute kidney injury on chronic kidney, acute kidney injury secondary to acute tubular necrosis sec ondary to the volume depletion and prerenal azotemia. Previous creatinine level was up to 5.2, altho ugh has improved in response to IV fluids. Plan is to monitor CK level. Patient did not have rhabdo myolysis. 2.Urinary tract infection status post antibiotic therapy for E coli urinary tract infection. 3.Proteinuria, likely secondary to diabetic kidney disease and hypertensive kidney disease. The pat ient previously had baseline creatinine level ranging from 1.4 to 1.5, which correlates with chronic kidney stage 3. 4.Nephrotic range proteinuria secondary to diabetic kidney disease. FRANCINE inhibitor is on hold due to acute kidney injury. Patient will take blood pressure medication including beta sandoval and calcium -channel sandoval. 5.Secondary hyperparathyroidism, monitor calcium-phosphorus level. Continue calcitriol to treat hyp erparathyroidism of renal origin. Monitor intact PTH and continue to treat vitamin D deficiency and monitor 25-hydroxy vitamin D level. 6.Hypertension. Blood pressure overall is improving. Continue low-sodium diet and medications. ACE/LISA Voice ID: [id number] Report ID: [id number]
[2022-04-27] MEDS: HYDROCODONE/APAP 5/325 MG TAB PO PRN (01:51)
[2022-04-27 04:19] LABS: Magnesium 2.3 mg/dL (1.8-2.4); Potassium 4.6 mmol/L (3.5-5.1)
[2022-04-27] MEDS: INSULIN -REGULAR HUMAN 50 UNIT/0.5 ML ML SQ SCH ×4 (07:30→21:00)
[2022-04-27] MEDS: ASPIRIN EC 81 MG TAB PO SCH (08:54)
[2022-04-27] MEDS: carvediloL 6.25 MG TAB PO SCH (08:55)
[2022-04-27] MEDS: SODIUM BICARB 325 MG TAB PO SCH ×2 (08:55→21:31)
[2022-04-27] MEDS: VITAMIN D 5,000 UNIT CAP PO SCH (08:55)
[2022-04-27] MEDS: HYDRALAZINE HCL 25 MG TABLET PO SCH ×3 (08:55→21:30)
[2022-04-27] MEDS: CLOPIDOGREL 75 MG TABLET PO SCH (08:55)
[2022-04-27] MEDS: FOLIC ACID 1 MG TABLET PO SCH (08:55)
[2022-04-27] MEDS: AMLODIPINE 10 MG TAB PO SCH (08:56)
[2022-04-27] MEDS: CALCITROL 0.25 MCG CAP PO SCH (12:52)
[2022-04-27] MEDS: carvediloL 12.5 MG TAB PO SCH ×2 (15:24→21:31)
--- NOTE | 2022-04-27 16:24 | P.PN ---
Subjective Date of Service: 04/27/22 Primary Care Provider: Marzena Chief Complaint: Acute Renal Failure Patient has no new complaint He is awake and alert. Physical Examination - Vital Signs Temperature: 97.9 F Blood Pressure: 164/66 Pulse: 72 Respirations: 16 Pulse Ox (%): 97 Assessment And Plan - Current Problems (Diagnosis) (1) Acute CVA (cerebrovascular accident) Current Visit: Yes Status: Acute (2) Acute renal failure Current Visit: Yes Status: Acute Qualifiers: Acute renal failure type: unspecified Qualified Code(s): N17.9 - Acute kidney failure, unspecified (3) Hyperkalemia Current Visit: Yes Status: Acute (4) Hyperlipemia Current Visit: Yes Status: Chronic Qualifiers: Hyperlipidemia type: unspecified Qualified Code(s): E78.5 - Hyperlipidemia, unspecified (5) Hypertension Current Visit: Yes Status: Chronic Qualifiers: Hypertension type: primary hypertension Qualified Code(s): I10 - Essential (primary) hypertension (6) Type 2 diabetes mellitus Current Visit: Yes Status: Chronic Qualifiers: Diabetes mellitus lobsterman insulin use: without fci use Diabetes mellitus complication status: with hyperglycemia Qualified Code(s): E11.65 - Type 2 diabetes mellitus with hyperglycemia (7) UTI (urinary tract infection) Current Visit: Yes Status: Acute Qualifiers: Urinary tract infection type: acute cystitis Hematuria presence: with hematuria Qualified Code(s): N30.01 - Acute cystitis with hematuria - Plan Physical Exam General: Alert, In no apparent distress, Oriented x3 HEENT: EOMI, Sclerae nonicteric Respiratory: Clear to auscultation bilaterally, Normal air movement Cardiovascular: No edema, Regular rate/rhythm, Normal S1 S2 Gastrointestinal: Normal bowel sounds, No tenderness Musculoskeletal: No tenderness Integumentary: No rashes Neurological: Normal strength at 5/5 x4 extr, Normal tone. Slurred speech, left facial weakness, incoordination bilateral upper extremities. Plan: MRI of the brain demonstrated right cerebellar peduncle acute to subacute infarct. Seen by neurology. Continue aspirin, Plavix, folic acid and Lipitor. LUIS secondary to dehydration from immobility and lack of access to fluid. Renal function improved but not much. Nephrology is following. Patient noted to have nephrotic range proteinuria. Suspect baseline CKD Diet as tolerated Echocardiogram is unremarkable Patient tolerating solid diet Continue PT/OT. Urine culture : E. coli. Patient completed antibiotics. Romo catheter discontinued. Disposition: Long-term care placement.
--- NOTE | 2022-04-27 17:23 | PN ---
Date of Progress Note: 04/27/2022 Subjective: The patient was admitted with acute kidney injury, acidosis. His acute kidney injury wa s poor perfusion, ATN secondary to depletional. Upon admission to the hospital, his creatinine was s ignificantly elevated 5.2, currently plateaued mid 3 with GFR around 19. The patient looked euvolemi c, off IV fluids. Physical Examination: Vital Signs: Blood pressure 152/69, pulse of 65, afebrile. Chest: Clear to auscultation. Heart: S1, S2. Regular. Abdomen: Soft, nontender. Extremity: No edema. Neuro: Alert. No focality. Laboratory Data: Sodium 140, potassium 4.6, bicarb 23, BUN 36, creatinine 3.4, GFR 19, calcium 7.7, magnesium 2.3. PC ratio of 5. Serology was negative and serum protein electrophoresis is still pend ing. Assessment And Plan: 1.Acute kidney injury, small size kidney 9.7/9.7 with nephrotic range proteinuria, mostly secondary to prerenal, poor perfusion, ATN/toxic ATN, currently plateaued. Serology ruled out any O2 immune di sease. Mostly, it is chronic kidney disease with current new baseline secondary to his diabetes neph ropathy. 2.Chronic kidney disease, stage 4, status post acute kidney injury, small size kidney with nephrotic range of proteinuria. I am going to hold on adding any FRANCINE inhibitor or ARB currently as the patien t recently recovered. The patient is going to need to be challenge with that as outpatient. 3.Nephrotic range of proteinuria with small size kidney and anemia. Serology was negative. We have still pending serum protein electrophoresis. 4.Secondary hyperparathyroidism with the presence of nephrotic range of proteinuria. We will contin ue calcitriol. 5.Hypertension, controlled, not optimal. I am going to go ahead and increase his carvedilol to 12.5 and we will follow up the patient. 6.Dysphagia with stroke, right cerebral involvement. Follow up with primary. 7.Diabetes as by primary. TERE/ANGELAL Voice ID: [id number] Report ID: [id number]
[2022-04-27 19:18] LABS: Albumin, (SPE) 2.5 g/dL (3.8-4.8); Alpha-1-Globulins 0.2 g/dL (0.2-0.3); Alpha-2-Globulins 0.8 g/dL (0.5-0.9); Gamma Globulins 0.6 g/dL (0.8-1.7); INTERPRETATION REPORT
[2022-04-27] MEDS ORDERED: ONDANSETRON 4 MG/2 ML VIAL IV PRN (21:24)
[2022-04-27] MEDS: ATORVASTATIN 40 MG TAB PO SCH (21:31)
[2022-04-28 03:51] LABS: Absolute Lymphocytes (CBC) 1.5 K/uL (0.7-4.9); Hematocrit 25.5 % (39.6-49.0); Lymphocytes % 21.7 % (15.3-44.8); MCV 94.4 fL (80-100); MPV 8.4 fL (7.6-11.3)
[2022-04-28 04:01] LABS: Potassium 4.6 mmol/L (3.5-5.1)
[2022-04-28] MEDS: HYDROCODONE/APAP 5/325 MG TAB PO PRN (04:17)
[2022-04-28 04:26] LABS: Blood Morphology Comment NOT SEEN (NOT SEEN); Platelet Estimate ADEQ
[2022-04-28] MEDS: INSULIN -REGULAR HUMAN 50 UNIT/0.5 ML ML SQ SCH ×4 (07:30→21:00)
[2022-04-28] MEDS: FOLIC ACID 1 MG TABLET PO SCH (08:52)
[2022-04-28] MEDS: AMLODIPINE 10 MG TAB PO SCH (08:52)
[2022-04-28] MEDS: SODIUM BICARB 325 MG TAB PO SCH ×2 (08:52→21:03)
[2022-04-28] MEDS: ASPIRIN EC 81 MG TAB PO SCH (08:53)
[2022-04-28] MEDS: HYDRALAZINE HCL 25 MG TABLET PO SCH ×3 (08:53→21:04)
[2022-04-28] MEDS: CLOPIDOGREL 75 MG TABLET PO SCH (08:53)
[2022-04-28] MEDS: carvediloL 12.5 MG TAB PO SCH ×2 (08:53→21:03)
[2022-04-28] MEDS: VITAMIN D 5,000 UNIT CAP PO SCH (08:54)
[2022-04-28 10:04] VITALS: O2SAT 95
--- NOTE | 2022-04-28 13:16 | PN ---
Date of Progress Note: 04/28/2022 Subjective: The patient was admitted with CVA, acute kidney injury secondary to prerenal with urgent hypertension with nephrotic range of proteinuria. The patient plateaued currently with creatinine m id to no event. Physical Examination: Vital Signs: Blood pressure 164/73, pulse of 65, afebrile. Chest: Clear to auscultation. Heart: S1, S2. Regular. Abdomen: Soft, nontender. Extremity: No edema. Neurologic: Alert. Laboratory Data: WBC 7.1, H and H 8.5/25.5. Sodium 137, potassium 4.6, bicarb 24, BUN 34, creatinin e 3.5. Calcium 7.8. Serum protein electrophoresis; no M spike, PTH of 241. Current Medications: The patient on include amlodipine 10 mg, aspirin, atorvastatin 40, calcitriol 0 .25, carvedilol 12.5 b.i.d., cholecalciferol, Plavix, folic acid, hydralazine 100 t.i.d., sodium bica rb 650 b.i.d. Assessment And Plan: 1.Acute kidney injury secondary to small size kidney, nephrotic range of proteinuria, mostly seconda ry to prerenal, recovered, plateaued currently, creatinine 3.5. All workup was negative. We will co ntinue to monitor the patient. 2.Chronic kidney disease, stage 4, small size kidney, nephrotic range of proteinuria, status post ac james kidney injury, stabilized. We will continue to monitor the patient. We will hold on any adding FRANCINE inhibitor or ARB for the time being as just recovered from acute kidney injury. 3.Nephrotic range of proteinuria. Serology and serum protein electrophoresis were negative. Mostly secondary to diabetes nephropathy. The patient will be a good candidate to add FRANCINE inhibitor/ARB as outpatient . 4.Secondary hyperparathyroidism. Continue calcitriol. 5.Hypertension. We just increased carvedilol yesterday. We will follow up. 6.Dysphagia and stroke with right cerebral involvement. Follow up with primary. Continue PT/OT. 7.Diabetes as by primary. MA/MODL Voice ID: [id number] Report ID: [id number]
--- NOTE | 2022-04-28 13:58 | P.PN ---
Subjective Date of Service: 04/28/22 Primary Care Provider: Marzena Chief Complaint: Acute Renal Failure Patient has no new complaint It appears patient speech is better. Physical Examination - Vital Signs Temperature: 98.3 F Blood Pressure: 164/73 Pulse: 65 Respirations: 16 Pulse Ox (%): 95 Assessment And Plan - Current Problems (Diagnosis) (1) Acute CVA (cerebrovascular accident) Current Visit: Yes Status: Acute (2) Acute renal failure Current Visit: Yes Status: Acute Qualifiers: Acute renal failure type: unspecified Qualified Code(s): N17.9 - Acute kidney failure, unspecified (3) Hyperkalemia Current Visit: Yes Status: Acute (4) Hyperlipemia Current Visit: Yes Status: Chronic Qualifiers: Hyperlipidemia type: unspecified Qualified Code(s): E78.5 - Hyperlipidemia, unspecified (5) Hypertension Current Visit: Yes Status: Chronic Qualifiers: Hypertension type: primary hypertension Qualified Code(s): I10 - Essential (primary) hypertension (6) Type 2 diabetes mellitus Current Visit: Yes Status: Chronic Qualifiers: Diabetes mellitus prison insulin use: without manager intermediate use Diabetes mellitus complication status: with hyperglycemia Qualified Code(s): E11.65 - Type 2 diabetes mellitus with hyperglycemia (7) UTI (urinary tract infection) Current Visit: Yes Status: Acute Qualifiers: Urinary tract infection type: acute cystitis Hematuria presence: with hematuria Qualified Code(s): N30.01 - Acute cystitis with hematuria - Plan Physical Exam General: Alert, In no apparent distress, Oriented x3 HEENT: EOMI, Sclerae nonicteric Respiratory: Clear to auscultation bilaterally, Normal air movement Cardiovascular: No edema, Regular rate/rhythm, Normal S1 S2 Gastrointestinal: Normal bowel sounds, No tenderness Musculoskeletal: No tenderness Integumentary: No rashes Neurological: Normal strength at 5/5 x4 extr, Normal tone. Slurred speech, left facial weakness, incoordination bilateral upper extremities. Plan: MRI of the brain demonstrated right cerebellar peduncle acute to subacute infarct. Seen by neurology. Medical management with aspirin, Plavix, folic acid and Lipitor. LUIS secondary to dehydration from immobility and lack of access to fluid. Renal function improved but not much. Nephrology is following. Patient noted to have nephrotic range proteinuria. Suspect baseline CKD Diet as tolerated Echocardiogram is unremarkable Patient tolerating solid diet Continue PT/OT. Urine culture : E. coli. Patient completed antibiotics. Romo catheter discontinued. COVID-19 positive. Patient is asymptomatic from the COVID. Disposition: Long-term care placement.
[2022-04-28] MEDS: ATORVASTATIN 40 MG TAB PO SCH (21:04)
[2022-04-28] MEDS ORDERED: LACTULOSE 20 GM/30 ML UCUP PO ONE (22:43)
[2022-04-28] MEDS ORDERED: MAGNESIUM CITRATE 300 ML BOT PO SCH (23:00)
[2022-04-29] MEDS: INSULIN -REGULAR HUMAN 50 UNIT/0.5 ML ML SQ SCH ×2 (07:30→11:30)
[2022-04-29] MEDS: SODIUM BICARB 325 MG TAB PO SCH (09:13)
[2022-04-29] MEDS: FOLIC ACID 1 MG TABLET PO SCH (09:14)
[2022-04-29] MEDS: VITAMIN D 5,000 UNIT CAP PO SCH (09:14)
[2022-04-29] MEDS: ASPIRIN EC 81 MG TAB PO SCH (09:15)
[2022-04-29] MEDS: HYDRALAZINE HCL 25 MG TABLET PO SCH (09:15)
[2022-04-29] MEDS: AMLODIPINE 10 MG TAB PO SCH (09:15)
[2022-04-29] MEDS: carvediloL 12.5 MG TAB PO SCH (09:16)
[2022-04-29] MEDS: CLOPIDOGREL 75 MG TABLET PO SCH (09:16)
--- NOTE | 2022-04-29 10:51 | P.DS ---
Admission Date: 04/15/22 Discharge Date: 04/29/22 Primary Care Provider: Marzena Disposition: TRANSFER TO SNF Discharge Condition: FAIR Reason for Admission: Acute Renal Failure - Problems (1) Acute CVA (cerebrovascular accident) Current Visit: Yes Status: Acute (2) Acute renal failure Current Visit: Yes Status: Acute Qualifiers: Acute renal failure type: unspecified Qualified Code(s): N17.9 - Acute kidney failure, unspecified (3) Hyperkalemia Current Visit: Yes Status: Acute (4) Hyperlipemia Current Visit: Yes Status: Chronic Qualifiers: Hyperlipidemia type: unspecified Qualified Code(s): E78.5 - Hyperlipidemia, unspecified (5) Hypertension Current Visit: Yes Status: Chronic Qualifiers: Hypertension type: primary hypertension Qualified Code(s): I10 - Essential (primary) hypertension (6) Type 2 diabetes mellitus Current Visit: Yes Status: Chronic Qualifiers: Diabetes mellitus adjunct faculty for medical terminology insulin use: without senior living use Diabetes mellitus complication status: with hyperglycemia Qualified Code(s): E11.65 - Type 2 diabetes mellitus with hyperglycemia (7) UTI (urinary tract infection) Current Visit: Yes Status: Acute Qualifiers: Urinary tract infection type: acute cystitis Hematuria presence: with he maturia Qualified Code(s): N30.01 - Acute cystitis with hematuria Brief History of Present Illness: Patient is a 61 y/o male with hypertension, type 2 diabetes non insulin dependent, hyperlipdemia, and history of leukemia (in remission) who presented to the ED with complaints of weakness. Per patient's sister, she noticed that he was acting differently- confused, unsteady gait, weak. He did have COVID at the time. When she checked on him again, she noticed he had not improved and decided to bring him into the ED. Patient stated he was very weak and was not able to get out of bed. NIHSS 4. Patient is notably for slurring words. Labs significant for sodium 135, potassium 5.5, creatinine 5.2, BUN 61, Pro-Deon 0.17, urine positive for UTI. CT brain showed "No acute intracranial abnormality. 17 mm subacute to chronic infarct suspected anterior right basal ganglia." Chest xray negative. He was given 5 units of insulin, 1 L NS, 1L D5W, 1 g calcium gluconate, 100 mEq of bicarb, and Rocephin. Potassium improved to 4.9 and Cr to 4.97. Strength and sensation intact and equal bilaterally. No facial droop noted. He was admitted for further management. Hospital Course: Patient admitted to the medical floor to continue acute stroke work-up. MRI of the brain demonstrated right cerebellar peduncle acute to subacute infarct. Seen by neurology. Medical management with aspirin, Plavix, folic acid and Lipitor recommended He also had LUIS secondary to dehydration from immobility and lack of access to fluid. Patient treated with IV fluid Renal function improved but not much. Seen by nephrology, patient noted to have nephrotic range proteinuria. Suspect baseline CKD She was initially placed on dysphagia diet but this was advanced to solid diet as his neurology symptoms improved. Patient noted to have incoordination and unsteady gait. Echocardiogram is unremarkable Patient tolerating solid diet PT saw and evaluated him He also had UTI with urine culture growing E. coli. This was treated with antibiotics. COVID-19 positive. Patient is asymptomatic from the COVID. He is clinically stable for discharge. Vital Signs/Physical Exam: Temp Pulse Resp BP Pulse Ox 97.7 F 89 18 144/72 H 97 04/29/22 08:00 04/29/22 08:00 04/29/22 08:00 04/29/22 08:00 04/29/22 08:00 General: Alert, In no apparent distress, Oriented x3 HEENT: Mucous membr. moist/pink Neck: Supple, JVD not distended Respiratory: Normal air movement Cardiovascular: No edema, Regular rate/rhythm, Normal S1 S2 Gastrointestinal: Soft and benign, Non-distended Musculoskeletal: No swelling Integumentary: No cyanosis Neurological: Normal strength at 5/5 x4 extr Laboratory Data at Discharge: WBC 7.10 K/uL (4.3-10.9) D 04/28/22 02:54 Hgb 8.5 g/dL (13.6-17.9) L 04/28/22 02:54 Hct 25.5 % (39.6-49.0) L 04/28/22 02:54 Plt Count 273 K/uL (152-406) 04/28/22 02:54 PT 10.6 SECONDS (9.5-12.5) 04/15/22 16:48 INR 0.96 04/15/22 16:48 APTT 25.5 SECONDS (24.3-36.9) 04/15/22 16:48 Sodium 137 mmol/L (136-145) 04/28/22 02:54 Potassium 4.6 mmol/L (3.5-5.1) 04/28/22 02:54 BUN 34 mg/dL (7-18) H 04/28/22 02:54 Creatinine 3.51 mg/dL (0.55-1.3) H 04/28/22 02:54 Glucose 115 mg/dL (74-106) H 04/28/22 02:54 Phosphorus 3.9 mg/dL (2.5-4.9) 04/26/22 05:42 Magnesium Cancelled 04/27/22 05:00 Total Bilirubin 0.2 mg/dL (0.2-1.0) 04/24/22 05:46 AST 20 U/L (15-37) 04/24/22 05:46 ALT 27 U/L (12-78) 04/24/22 05:46 Alkaline Phosphatase 68 U/L (45-117) 04/24/22 05:46 Triglycerides 201 mg/dL (<150) H 04/16/22 02:42 Cholesterol 155 mg/dL (<200) 04/16/22 02:42 HDL Cholesterol 44 mg/dL (40-60) 04/16/22 02:42 Cholesterol/HDL Ratio 3.52 04/16/22 02:42 Amylase 77 U/L (25-115) 04/15/22 16:48 Lipase 121 U/L (73-393) 04/15/22 16:48 Home Medications: Amlodipine [Norvasc*] 10 mg PO DAILY tab 04/29/22 Aspirin [Aspirin EC 81 MG] 81 mg PO DAILY #30 04/29/22 Atorvastatin Calcium [Lipitor] 40 mg PO BEDTIME tab 04/29/22 Calcitrol [Rocaltrol*] 0.25 mcg PO Q48H cap 04/29/22 Cholecalciferol (Vitamin D3) [Vitamin D 5,000 IU Cap*] 5,000 unit PO DAILY cap 04/29/22 Clopidogrel Bisulfate [Plavix*] 75 mg PO DAILY #30 04/29/22 Folic Acid 1 mg PO DAILY #30 tab 04/29/22 Hydralazine [Apresoline*] 100 mg PO TID tab 04/29/22 Na Bicarb Tab [Sodium Bicarb 325 MG Tab*] 650 mg PO BID tab 04/29/22 carvediloL [Coreg*] 12.5 mg PO BID #0 tab 04/29/22 New Medications: Aspirin [Aspirin EC 81 MG] 81 mg PO DAILY #30 Folic Acid 1 mg PO DAILY #30 tab Diet: ADA Activity: Fall precautions Followup: Marc Ivan MD [Primary Care Provider] - 1-2 Weeks (Call to schedule appointment) Time spent managing pt's care (in minutes): 37
[2022-04-29 12:20] VITALS: BP 139/78; TEMP 98
[2022-04-29] MEDS: CALCITROL 0.25 MCG CAP PO SCH (13:30)
--- NOTE | 2022-04-29 16:47 | PN ---
Date of Progress Note: 04/29/2022 Subjective: The patient was admitted with acute kidney injury, stroke, urgent hypertension. The pat ient was treated. Kidney function plateaued on creatinine 3.5. Blood pressure had been better contr olled. Physical Examination: Vital Signs: Blood pressure of 144/72, pulse of 89, afebrile. Chest: Clear to auscultation. Heart: S1, S2 regular. Abdomen: Soft, nontender. Extremities: No edema. Neurologic: Alert. No focality. Laboratory Data: H and H 8.5/25.5. Sodium 137, potassium 4.6, bicarb 24, BUN 34, creatinine 3.5, GF R 19, calcium 7.8. Current Medications: The patient on include amlodipine 10 mg, atorvastatin, carvedilol 12.5 b.i.d., hydralazine 100 t.i.d. Sodium bicarb 650. Folic acid. Hydrocodone. Assessment And Plan: 1.Chronic kidney disease, stage 4, with acute kidney injury, nephrotic range of proteinuria, small s ize kidney, currently plateaued, stable. I am going to continue to monitor the patient. The patient is going to be good candidate as outpatient to add FRANCINE inhibitor or ARB. 2.Acute kidney injury secondary to prerenal, recovered, plateaued currently as above. 3.Nephrotic range of proteinuria. Workup, serology and serum protein electrophoresis was negative m ostly secondary to diabetes nephropathy. We will continue to monitor. Continue carvedilol. Patient is going to need to be started on FRANCINE inhibitor and ARB as outpatient. 4.Secondary hyperparathyroid. We will continue calcitriol. 5.Hypertension, controlled. 6.Dysphagia secondary to cerebrovascular accident. We will follow up with the Primary. Patient cleared from the renal standpoint for discharge planning to follow up in 2 weeks in the office. BABITA Voice ID: [id number] Report ID: [id number]
== END 2022-04-29 14:23 | DRG 64 ==
LOC: ER 15:31 → ERHOLD 21:40 → 2ND 04-16 08:03 → 4TH 04-26 13:31
PROVIDERS: ADMIT Internal Medicine; ATTEND Internal Medicine
DX: I63.9 Cerebral infarction, unspecified (principal); U07.1 COVID-19; N17.0 Acute kidney failure with tubular necrosis; E87.2 Acidosis; N30.01 Acute cystitis with hematuria; N25.81 Secondary hyperparathyroidism of renal origin; E87.5 Hyperkalemia; E83.41 Hypermagnesemia; E78.5 Hyperlipidemia, unspecified; I12.9 Hypertensive chronic kidney disease with stage 1 through stage 4 chronic kidney disease, or unspecified chronic kidney disease; N18.30 Chronic kidney disease, stage 3 unspecified; E11.22 Type 2 diabetes mellitus with diabetic chronic kidney disease; E11.65 Type 2 diabetes mellitus with hyperglycemia; D64.9 Anemia, unspecified; E83.39 Other disorders of phosphorus metabolism; E55.9 Vitamin D deficiency, unspecified; E86.0 Dehydration; B96.20 Unspecified Escherichia coli [E. coli] as the cause of diseases classified elsewhere; R29.704 NIHSS score 4; R47.81 Slurred speech; Z60.2 Problems related to living alone; Z79.02 Long term (current) use of antithrombotics/antiplatelets; Z79.82 Long term (current) use of aspirin; Z86.16 Personal history of COVID-19; Z79.899 Other long term (current) drug therapy
CPT/HCPCS: 36415; 70450; 70544; 70551; 71045; 74230; 76770; 80048; 80053; 80061; 80069; 80076; 80307; 81001; 81003; 81015; 82150; 82306; 82550; 82553; 82570; 82728; 82947; 83036; 83520; 83540; 83605; 83690; 83735; 83935; 83970; 84100; 84132; 84145; 84156; 84165; 84300; 84443; 84466; 85025; 85027; 85610; 85730; 86021; 86038; 86160; 86225; 86430; 86705; 86706; 86803; 87040; 87077; 87086; 87088; 87186; 87340; 87389; 87811; 92610; 92611; 93005; 93306; 93880; 97110; 97112; 97116; 97161; 97165; 97530; 99285; J0360; J0610; J1644; J1815; J2405; J7030; U0003

== ENCOUNTER 2023-02-21 09:50 | Day surgery (SDC) | payer OTHER ==
[2023-02-17 16:53] LABS: Potassium 4.2 mEq/L (3.5-5.1)
[2023-02-21] MEDS ORDERED: NA CHLORIDE 0.9% 500 ML ONE (10:31)
[2023-02-21] MEDS ORDERED: CEFAZOLIN SODIUM 1 GM/VIAL ONE (10:33)
[2023-02-21] MEDS ORDERED: propofoL 200 MG/20 ML VIAL IV ONE (10:59)
[2023-02-21] MEDS ORDERED: FENTANYL CITR 100 MCG/2 ML ONE (11:00)
[2023-02-21] MEDS ORDERED: MIDAZOLAM HCL 2 MG/2 ML INJ ONE (11:00)
[2023-02-21] MEDS ORDERED: LIDOCAINE 2% MPF 5 ML VIAL ONE (11:00)
[2023-02-21] MEDS ORDERED: ONDANSETRON 4 MG/2 ML VIAL ONE (11:00)
[2023-02-21] MEDS ORDERED: NA CHLORIDE 0.9% 50 ML ONE (11:04)
[2023-02-21] MEDS ORDERED: LIDOCAINE HCL/EPINEPHRINE 20 ML MDV ONE (11:04)
[2023-02-21] MEDS ORDERED: HEPARIN 5000 UNIT/ML 1 ML VIAL ONE (11:07)
[2023-02-21] MEDS ORDERED: GLYCOPYRROLATE 0.2 MG/ML SYR ONE (11:32)
--- NOTE | 2023-02-21 11:53 | P.OP ---
Preoperative diagnosis: End Stage Renal Disease Postoperative diagnosis: End Stage Renal Disease Primary procedure: Placement of Tunnelled Hemodialysis Catheter Secondary procedure: Ultrasound, Flouroscopy and microintroducer utilized Anesthesia: GETA + Local Estimated blood loss: <10cc Specimen: none Findings: catheter @ SVC Complications: None Implants: 19cm Curved Hemosplit HD Catheter Transferred to: Recovery Room
--- NOTE | 2023-02-21 12:47 | OP ---
Date of Procedure: 02/21/2023 Surgeon: Godwin Paz MD, Preoperative Diagnosis: End-stage renal disease. Postoperative Diagnosis: End-stage renal disease. Procedure Performed: Placement of a tunneled hemodialysis catheter using ultrasound fluoroscopic nhi lamas with interpretation and microintroducer set. Anesthesia: General endotracheal plus local with 0.25% Marcaine. Estimated Blood Loss: Less than 10 cc. Specimen: None. Findings: Catheter at the confluence of the SVC. Dark red nonpulsatile blood returned throughout th e procedure. Complications: None. Implants: 19 cm curved HemoSplit catheter placed. Disposition: The patient was transferred to the recovery room in good condition. Procedure In Detail: After informed consent was obtained, patient was brought to the operating room, prepped and draped in the usual sterile fashion after adequate anesthesia was achieved. Patient was placed in steep Trendelenburg position. At this point, ultrasound guidance was used to visualize th e internal jugular vein on the right side. It was found to be of adequate size. At this point, usin g ultrasound guidance, I cannulated the right internal jugular vein on the first attempt using a micr ointroducer needle. At this point, microwire was advanced at this point. Fluoroscopic guidance conf irmed position of the wire in the right atrium and arm down to the right ventricle. At this point, I made a small jazz incision overlying the wire insertion site and placed a microintroducer sheath usi ng Seldinger technique, at this point. I then removed the microwire and advanced the standard wire u nder fluoroscopic guidance in the confluence of the SVC and right atrium. At this point, I then foun d a location on the chest wall of adequate position. I sized the 19 cm HemoSplit catheter appropriat duong, made a jazz incision overlying the appropriate exit site and anesthetized the entire tract at th is point. At this point, I used a tunneling device to pass the catheter through without evidence of complication. The catheter was then oriented properly and I performed sequential dilatation using Se georgeinger technique over the wire and ultimately the introducer sheath was placed. The wire was remove d and I introduced the catheter at this point without evidence of complication in the confluence of t he SVC. Both ports yoko back dark red nonpulsatile blood throughout the procedure and they flushed q uite easily. They were flushed with saline and then ultimately with the heparin super flush at this point and secured to the chest wall using interrupted 3-0 nylon sutures and the insertion site was cl eansed and a single interrupted 3-0 nylon suture was placed at this point. The patient was taken out of steep Trendelenburg position. Fluoroscopic guidance was used throughout the procedure with inter pretation. Catheter was in good position at the end of the procedure. The patient tolerated procedu re without evidence of any complication and transferred to PACU in good condition. All counts were c orrect at the end of the case. CHRIS/MODL Voice ID: [id number] Report ID: [id number]
--- NOTE | 2023-02-21 12:48 | RAD REPORT ---
EXAM DESCRIPTION: RADChest Single View02/21/2023 12:36 pm CLINICAL HISTORY: S/P HD CATH PLACEMENT COMPARISON: Chest Single View dated 04/15/2022; Chest Single View dated 04/26/2018; Chest Pa And Lat ( 2 Views) dated 03/03/2017; CHEST PA AND LAT 2 VIEW dated 04/23/2014 TECHNIQUE: Portable AP view of the chest. FINDINGS: Right IJ hemodialysis catheter in place, with staggered catheter tip at the proximal to mi d SVC. The lungs are clear. No pneumothorax or effusion. The cardiomediastinal contours are unremark able. Multiple left posterolateral rib deformities, stable, suggestive of healed fractures. IMPRESSION: Right IJ hemodialysis staggered catheter tip at the proximal to mid SVC. No acute cardiopulmonary process.
--- NOTE | 2023-02-21 13:03 | RAD REPORT ---
EXAM DESCRIPTION: RAD - Fluoroscopy <1 Hour - 02/21/2023 12:50 pm CLINICAL HISTORY: PORT A CATH PLACEMENT COMPARISON: None available. FINDINGS: Eight Images were sent to PACS, documenting needle positions during an image guided hemodi alysis catheter insertion procedure. No radiologist was available for the procedure, nor will any quincy ge interpretation he provided. Please refer to the procedural report for additional details. Fluoroscopy time: 0.2 Minutes. Skin dose: 4.93 mGy IMPRESSION: Documentation of fluoroscopy utilization as above.
[2023-02-21 14:54] VITALS: BP 193/78; TEMP 97; O2SAT 98
== END 2023-02-21 14:37 | disposition home or self-care (01) ==
LOC: OR 09:50
PROVIDERS: ATTEND Surgery
PROC: B513ZZA Fluoroscopy of Right Jugular Veins, Guidance (ICD-10-PCS; 2023-02-21)
PROC: 05HM33Z Insertion of Infusion Device into Right Internal Jugular Vein, Percutaneous Approach (ICD-10-PCS; principal; 2023-02-21 11:30)
DX: N18.6 End stage renal disease (principal)
CPT/HCPCS: 36558; 80048; 36415; 82947 ×2; 71045; J1644 ×2; J2704; J2001; J2250; J3010; J2405; J7040; J0690; C1752; 76000

== ENCOUNTER 2023-04-15 11:14 | Emergency (ER) | payer OTHER ==
--- OUTSIDE RECORDS SUMMARY | 2023-04-15 11:45 | XMS REPORT | Continuity of Care Document ---
:1960 Author Organization [facility] t Address [address] [facility] [address] [place] [address] Care Team Providers Name Role Phone No , Pcp Primary Care Physician Unavailable AMANDA SUAREZ Attending Clinician Unavailable DEVON ENG Attending Clinician Unavailable SAUD WILL Attending Clinician Unavailable MATIAS BROWN Attending Clinician Unavailable Digna PROGRAM SPECIALIST, Augusto Attending Clinician Matias Brown MD Attending Clinician Tu SILVA, Vini Kovacs Attending Clinician Melody Farah DO Attending Clinician Kayla Catherine Attending Clinician Nurse, [facility] Surgery Gu Attending Clinician Unavailable Amanda Dickson Attending Clinician Don SILVA, Rafa Vo Attending Clinician Say SILVA, Avinash Meza Attending Clinician Mario Ellis MD Attending Clinician aKmron Hernandez CRNA Attending Clinician [phone] Emmanuel SILVA, Rodolfo Vo Attending Clinician Saud Will MD Attending Clinician Doctor Unassigned, [place] Attending Clinician Unavailable DEVON ENG Attending Clinician Unavailable Devon Eng Attending Clinician Kleber SILVA, Etienne Attending Clinician 1, [facility] Infusion Chair Attending Clinician Unavailable Jose SILVA, Jennifer Bunn Attending Clinician JENNIFER GARCIA Attending Clinician Unavailable Jalyn Caceres RN Attending Clinician Unavailable PARIS SUE Attending Clinician Unavailable Landy Underwood Attending Clinician Ana Rich MD Attending Clinician Paris Seu DO Attending Clinician ETIENNE SHAHID Attending Clinician Unavailable Bina Brennan RN Attending Clinician Unavailable ANA RICH Attending Clinician Unavailable KYMBERLY JONES Attending Clinician Unavailable Kymberly Jones NP Attending Clinician 2, [facility] Lab Attending Clinician Unavailable Toro Jackson DO Attending Clinician Thierry Austin MD Attending Clinician Lanre Hill MD Attending Clinician Lew Jacobson MD Attending Clinician Po, [facility] Lab Main Attending Clinician Unavailable Kasey Padgett DO Attending Clinician KSAEY PADGETT Attending Clinician Unavailable VINI MAE Admitting Clinician Unavailable AVINASH DEAL Admitting Clinician Unavailable AAN RICH Admitting Clinician Unavailable Ana Rich MD Admitting Clinician ETIENNE SHAHID Admitting Clinician Unavailable Etienne Shahid MD Admitting Clinician Lew Jacobson MD Admitting Clinician Payers Payer Name Policy Type Policy Number Effective Date Expiration Date Leonard lovell MEDICARE PART A [id number] 1988 1988 AND B 00:00:00 00:00:00 MEDICARE PART A [id number] 1988 \\T\\ B 00:00:00 [facility] [id number] 2023 STAR PLUS 00:00:00 Problems Condition Condition Condition Status Onset Resolution Last Treating Co mments Source Name Details Category Date Date Treatment Clinician Date Gangrene Gangrene Disease Active [facility] di of finger of finger 8-04 st of left of left 00:00: Hospita hand hand 00 l Cellulitis Cellulitis Disease Active M ethodi of left of left 7-25 st middle middle 00:00: Hospita finger finger 00 l Finger Finger Disease Active [facility] injury, injury, 03-11 Health left, left, 00:00: initial initial 00 encounter encounter FISTULOGRA FISTULOGR Diagnosis Active 2023-02-24 Memoria M / 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, AM / 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, 12-15 11:00:00 l LEFT UPPER LEFT UPPER 00:00: He rmann EXTREMITY EXTREMITY 00 Active 12/15/2022 [facility] Post-opera Post-opera Disease Active U T tive state tive state 12-11 He alth 00:00: 00 N18.6 N18.6 Diagnosis Active 2023-02-24 Mem oria Active 11-03 10:59:00 l 11/03/2022 00:00: Tyson MANCINI 00 [facility] History of History of Disease Active U nivers arterial arterial 2-20 ity of ischemic ischemic 00:00: [place] stroke stroke 00 Medical Branch End stage End stage Disease Active [facility] renal renal 2-14 Health disease disease 00:00: 00 Bilateral Bilateral Disease Active Uni vers carotid carotid 1-20 ity of artery artery 00:00: [place] disease disease 00 Medical Branch Acute on Acute on Disease Active Unive rs chronic chronic 1-17 ity of diastolic diastolic 00:[place] CHF 00 Medical (congestiv (congestiv Br anch e heart e heart failure) failure) Scrotal Scrotal Disease Active 2021-09 Univers swelling swelling 1-10 ity of 00:00: [place] Medical [facility] LUIS (acute LUIS (acute Disease Active 2021-09 U nivers kidney kidney 1-10 ity of injury) injury) 00:00: [place] [facility] Acute on Acute on Disease Active 2021-09 Unive rs chronic chronic 1-10 ity of diastolic diastolic 00:00: [place] s congestive congestive 00 Me dical heart heart Branch failure failure Pulmonary Pulmonary Disease Active 2021-09 Uni vers hypertensi hypertensi 1-10 it y of on on 00:00: [place] [facility] Primary Primary Disease Active 2021-09 Univers hypertensi hypertensi 1-10 it y of on on 00:00: [place] [facility] Other Other Disease Active 2021-09 Univers hyperlipid hyperlipid 1-10 it y of emia emia 00:00: [place] [facility] Other Other Disease Active 2021-09 Univers specified specified 1-10 ity of anemias anemias 00:00: Medical Branch Fluid Fluid Disease Active 2021-09 Univers overload overload 1-09 ity of 00:00: [place] [facility] Urinary Urinary Disease Active 2021-09 Overview: Univ ers retention retention 09-05 Formattin i ty of 00:00: g of this [place] note Medical might be Branch different from the original. Added automatic ally from request for surgery [id number] Phimosis Phimosis Disease Active 2021-09 Overview: Un leatha of penis of penis 09-05 Formattin ity of 00:00: g of this [place] note Medical might be Branch different from the original. Added automatic ally from request for surgery [id number] Elevated Elevated Disease Active Unive rs troponin I troponin I 4-17 it y of level level 00:00: Medical Branch Elevated Elevated Disease Active Unive rs brain brain 4-17 ity of natriureti natriureti 00:[place] c peptide c peptide 00 Medi vick (BNP) (BNP) Branch level level Dyslipidem Dyslipidem Disease Active U nivers ia ia 4-17 ity of 00:00: Medical Branch Type 2 Type 2 Disease Active Univers diabetes diabetes 4-17 ity of mellitus mellitus 00:00: [place] with other with other 00 Me dical specified specified Bran ch complicati complicati on on Acute Acute Disease Active Univers kidney kidney 4-17 ity of injury injury 00:00: [place] superimpos superimpos 00 Me dical ed on CKD ed on CKD Bran ch Fever in Fever in Disease Active Unive rs adult adult 4-15 ity of 00:00: [place] [address] Medical Branch Essential Essential Disease Active 2019-09 Uni vers hypertensi hypertensi 1-03 it y of on on 00:00: [place] [address] Medical Branch HTN HTN Disease Active 2019-09 Univers (hypertens (hypertens 1-03 it y of ion) ion) 00:00: [address] Branch Diabetic Diabetic Disease Active 2019-09 Unive rs foot foot 1-01 ity of infection infection 00:00: [address] Obesity Obesity Disease Active 2019-09 Univers (BMI (BMI 1- ity of 30-39.9) 30-39.9) 00:00: [address] Allergies, Adverse Reactions, Alerts Allergy Allergy Status Severity Reaction(s) Onset Inactive Treating Comm ents Source Name Type Date Date Clinician NO KNOWN Drug Active Univers ALLERGIE Class ity of [facility] No Known No Known Active Memori a Medicati Medicati l on on [place] Allergie Allergie s s Social History Social Habit Start Date Stop Date Quantity Comments Source History SDOH Social Unive rsity of Connections [facility] Med ical Together Branch History SDOH Social Unive rsity of Connections [facility] Medical Branch History SDOH Social Unive rsity of Connections [place] Medical Membership Branch History SDOH Social Unive rsity of Connections [place] Medical Meetings Branch History SDOH Social Unive rsity of Connections [facility] Gender identity [facility] Sexual orientation [facility] Alcohol intake 2023-04-12 2023-04-12 Ex-drinker [facility] 00:00:00 00:00:00 (finding) Hospital History of Social 2023-04-12 2023-04-[address] function 00:00:00 00:00:00 Hospital Tobacco use and 2023-03-30 2023-03-30 Smokeless [facility] exposure 00:00:00 00:00:00 tobacco non-user Hospital Alcohol Comment 2023-03-30 2023-03-30 STOPPED 14 YRS. Meth odist 00:00:00 00:00:00 AGO Hospital Exposure to 2022-11-05 2022-11-15 Not sure University of SARS-CoV-2 (event) 00:00:00 11:26:00 [place] [facility] History SDOH 2022-09-22 2022-09-22 1 University o f Alcohol Frequency 00:00:00 00:00:00 [place] M edical Branch History SDOH 2022-09-22 2022-09-22 0 University o f Alcohol Std Drinks 00:00:00 00:00:00 [place] [facility] History SDOH 2022-09-22 2022-09-22 1 University o f Alcohol Binge 00:00:00 00:00:00 [place] Medic al Branch History SDOH Social 2022-09-22 2022-09-22 5 [facility] rsity of Connections Phone 00:00:00 00:00:00 [place] M edical Branch History SDOH 2022-09-22 2022-09-22 4 University o f Physical Activity 00:00:00 00:00:00 [facility] [place] [facility] edical DPW Branch History SDOH 2022-09-22 2022-09-22 2 University o f Physical Activity 00:00:00 00:00:00 [facility] [place] [facility] edical MPS Branch History SDOH 2022-09-22 2022-09-22 5 University o f Financial 00:00:00 00:00:00 [place] [facility] History SDOH Food 2022-09-22 2022-09-22 1 Univers ity of Worry 00:00:00 00:00:00 [place] [facility] History SDOH Food 2022-09-22 2022-09-22 1 Univers ity of Scarcity 00:00:00 00:00:00 [place] [facility] History SDOH 2022-09-22 2022-09-22 2 University o f Transport Med 00:00:00 00:00:00 [place] Medic al Branch History SDOH 2022-09-22 2022-09-22 2 University o f Transport Non-Med 00:00:00 00:00:00 [facility] [place] [facility] edical Branch Sex Ass[birth year] At [birth year] [facility] 00:00:00 00:00:00 Hospital Smoking Status Start Date Stop Date Source Tobacco smoking status [facility] Tobacco smoking consumption unknown [facility] Medications Ordered Filled Start Stop Current Ordering Indication Dosage Frequency Signature Comments Components Source Medication Medication Date Date Medication? Clinician (SIG) Name Name sodium 2022- No 1{enema 1 Enema, Uni vers phosphates 04-15 } Rectal, ity o f (READY-TO-U 07:45: 06:57 ONCE, 1 [place] ENEMA) 00 :00 dose, On Medica l -7 Tue Branch gram/118 mL 04/15/23 at enema 1 0245, Enema Routine hydralAZINE 2022- No 10mg 10 mg, Uni vers (APRESOLINE 04-15 Slow IV ity of ) injection 06:45: 06:41 [place] 10 mg 00 :00 ONCE, 1 Medical dose, On Branch 04/15/23 at 0145, SAL peg-electro 2022- Yes [id number] 4000mL Take 4,000 Univers lyte soln 04-15-12 mL by ity of (GOLYTELY) 00:00: 04:59 mouth once [place] [id number] 00 :00 now for 1 Med ical .74 -5.86 dose. Branch gram solution magnesium 2022- Yes [id number] 300mL Take 300 Univers citrate 04-15-12 mL by ity of solution 00:00: 04:59 mouth [place] 00 :[place] now for 1 Medical dose. Branch amLODIPine 2022- No 10mg QD Take 1 Meth nora (NORVASC) 04-11 tablet (10 st 10 mg 12:15: 00:00 mg total) Hospit a tablet 24 :00 by mouth l daily. AMLODIPINE BESYLATE furosemide 2022-0 Yes 80mg Q.5D Take 1 Metho di (LASIX) 80 04-11 tablet (80 st mg tablet 12:15: mg total) Hos carlos 20 by mouth 2 l (two) times a day. tamsulosin 2022-0 Yes .4mg QD Take 1 Metho di (FLOMAX) 04-[address] 0.4 mg 12:15: (0.4 mg Hospita capsule 20 total) by l mouth daily. epoetin 2022-0 Yes [id number] Inject 1 Meth nora neelam-epbx 04-11 mL (10,000 st (Retacrit) 12:15: Units Hospit a 10,000 20 total) l unit/mL under the solution skin. injection TAKING ONCE A WEEK EVERY TUESDAY insulin 2022-0 Yes [id number] Inject Me thodi regular 04-11 [id number] under the s t (NovoLIN R 12:15: 3D skin 3 Hospi ta Regular 20 (three) l U-100 times a Insuln) 100 day before unit/mL meals. injection SLIDING SCALE PRE MEALS calcitrioL 2022-0 Yes .25ug QD Take 1 Meth nora (ROCALTROL) 04-[address] 0.25 MCG 12:15: (0.25 mcg Hosp nidhi capsule 20 total) by l mouth daily. hydrALAZINE 2022-0 Yes 100mg [id number] Take 1 Methodi (APRESOLINE 04-[id number] ) 100 MG 12:15: 3D (100 mg Hospit a tablet 20 total) by l mouth 3 (three) times a day. HYDRALAZIN E HCL finasteride 2022-0 Yes 5mg QD Take 1 Meth nora (PROSCAR) 5 04-11 tablet (5 st mg tablet 12:15: mg total) Hos carlos 20 by mouth l daily. carvediloL 2022-0 Yes 12.5mg Q.5D Take 1 Met hodi (COREG) 04-[address] 12.5 MG 12:15: (12.5 mg Hospit a tablet 20 total) by l mouth 2 (two) times a day with meals. aspirin 2022-0 Yes 81mg QD Take 1 Methodi (ECOTRIN) 04-11 tablet (81 st 81 MG 12:15: mg total) Hospita enteric 20 by mouth l coated daily. tablet folic acid 2022-0 Yes 1mg QD Take 1 Metho di (FOLVITE) 1 04-11 tablet (1 st MG tablet 12:15: mg total) Hos carlos 20 by mouth l daily. clopidogreL 2022-0 Yes 75mg QD Take 1 Meth nora (PLAVIX) 75 04-11 tablet (75 st mg tablet 12:15: mg total) Hos carlos 20 by mouth l daily. levothyroxi 2022-0 Yes 25ug QD Take 1 Meth nora ne 04-11 tablet (25 st (SYNTHROID) 12:15: mcg total) Hospita 25 mcg 20 by mouth l tablet daily. atorvastati 2022-0 Yes 40mg QD Take 1 Meth nora n (LIPITOR) 04-11 tablet (40 st 40 mg 12:15: mg total) Hospita tablet 20 by mouth l nightly. docusate 2022-0 Yes 100mg Q.5D Take 1 Method i sodium 04-[address] (COLACE) 12:15: (100 mg Hospit a 100 MG 20 total) by l capsule mouth 2 (two) times a day as needed for constipati on. epoetin 0 Yes [id number] 1 mL Methodi neelam-epbx 04-11 (10,000 st (Retacrit) 12:15: Units Hospit a 10,000 20 total). l unit/mL solution injection nystatin 2022-0 Yes Q.5D Apply Methodi (MYCOSTATIN 04-[address] ) 100,000 12:15: 2 (two) Hospi ta unit/gram 20 times a l cream day. sevelamer 0 Yes 800mg [id number] Take 1 Methodi (RENAGEL) 04-[id number] 800 MG 12:15: 3D (800 mg Hospita tablet 20 total) by l mouth 3 (three) times a day with meals. latanoprost 2022- No 1[drp] QD Administer Methodi (XALATAN) 04-[address] 0.005 % 11:22: 00:00 both eyes Hosp nidhi ophthalmic 36 :00 nightly. l solution patiromer 2022- No 8.4g QD Take 8.4 g M ethodi calcium 04-[address] sorbitex 11:22: 00:00 daily. Hospit a ([place]) 22 :00 l 8.4 gram powder in packet packet lactulose 2022- No 10g Q24H Take 15 mL M ethodi 10 gram/15 04-08 ([address] mL (15 mL) 11:22: 00:00 total) by H ospita solution 15 :00 mouth l daily as needed (FOR CONSTIPATI ON). traMADoL 2023-0 2022- [place] [id number] 50mg Q6H Take 1 Metho di (ULTRAM) 50 8-04 08-10 tablet (50 s t mg tablet 00:00: 04:59 mg total) Ho spita 00 :00 by mouth l every 6 (six) hours as needed for moderate pain for up to 5 days .acute pain. ondansetron 2023-0 Yes 4mg Take 1 Univ ers 4 mg tablet 6-14 tablet by ity of 16:42: mouth [place] 16 every 4 Medical (four) Branch hours. tamsulosin 2023-0 Yes Take by Univ ers 0.4 mg 24 6-14 mouth ity of hr capsule 16:42: daily. [place] [address] Medical [place] ondansetron 2023-0 Yes 4mg Take 1 Univ ers 4 mg tablet 6-14 tablet by ity of 16:42: mouth [place] 16 every 4 Medical (four) Branch hours. tamsulosin 2023-0 Yes Take by Univ ers 0.4 mg 24 6-14 mouth ity of hr capsule 16:42: daily. [place] [address] Medical Branch ondansetron 3-0 Yes 4mg Take 1 Univ ers 4 mg tablet 6-14 tablet by ity of 16:42: mouth [place] 16 every 4 Medical (four) Branch hours. tamsulosin 2023-0 Yes Take by Univ ers 0.4 mg 24 6-14 mouth ity of hr capsule 16:42: daily. [address] ondansetron 2023-0 Yes 4mg Take 1 Univ ers 4 mg tablet 6-14 tablet by ity of 16:42: mouth [place] 16 every 4 Medical (four) Branch hours. tamsulosin 2023-0 Yes Take by Univ ers 0.4 mg 24 6-14 mouth ity of hr capsule 16:42: daily. [place] [address] Medical [place] ondansetron 2023-0 Yes 4mg Take 1 Univ ers 4 mg tablet 6-14 tablet by ity of 16:42: mouth [place] 16 every 4 Medical (four) Branch hours. tamsulosin 2023-0 Yes Take by Univ ers 0.4 mg 24 6-14 mouth ity of hr capsule 16:42: daily. [place] [address] Medical [place] ondansetron 2023-0 Yes 4mg Take 1 Univ ers 4 mg tablet 6-14 tablet by ity of 16:42: mouth [place] [address] every 4 Medical (four) Branch hours. tamsulosin 2023-0 Yes Take by Univ ers 0.4 mg 24 6-14 mouth ity of hr capsule 16:42: daily. [address] ondansetron 2023-0 Yes 4mg Take 1 Univ ers 4 mg tablet 6-14 tablet by ity of 16:42: mouth [place] [address] every 4 Medical (four) Branch hours. tamsulosin 2023-0 Yes Take by Univ ers 0.4 mg 24 6-14 mouth ity of hr capsule 16:42: daily. [address] ondansetron 2023-0 Yes 4mg Take 1 Univ ers 4 mg tablet 6-14 tablet by ity of 16:42: mouth [place] [address] every 4 Medical (four) Branch hours. tamsulosin 2023-0 Yes Take by Univ ers 0.4 mg 24 6-14 mouth ity of hr capsule 16:42: daily. [address] aspirin 81 2023-0 Yes 81mg Chew 81 [facility] MG chewable 5-09 mg. Health tablet 12:28: 44 aspirin 81 2023-0 Yes 81mg Chew 81 [facility] MG chewable 5-09 mg. Health tablet 12:28: 44 aspirin 81 2023-0 Yes 81mg Chew 81 [facility] MG chewable 5-09 mg. Health tablet 12:28: 44 hydrALAZINE 2023-0 Yes 100 mg = 1 Memoria 100 mg oral 4-20 tab, PO, l tablet 22:44: BID, # 1 [place] 00 tab, 0 Refill(s) hydrALAZINE 2023-0 Yes 100 mg = 1 Memoria 100 mg oral 4-20 tab, PO, l tablet 22:44: BID, # 1 [place] 00 tab, 0 Refill(s) hydrALAZINE 2023-0 Yes 100 mg = 1 Memoria 100 mg oral 4-20 tab, PO, l tablet 22:44: BID, # 1 [place] 00 tab, 0 Refill(s) hydrALAZINE 2023-0 Yes 100 mg = 1 Memoria 100 mg oral 4-20 tab, PO, l tablet 22:44: BID, # 1 [place] 00 tab, 0 Refill(s) hydrALAZINE 2023-0 Yes 100 mg = 1 Memoria 100 mg oral 4-20 tab, PO, l tablet 22:44: BID, # 1 [place] 00 tab, 0 Refill(s) hydrALAZINE 2023-0 Yes 100 mg = 1 Memoria 100 mg oral 4-20 tab, PO, l tablet 22:44: BID, # 1 [place] 00 tab, 0 Refill(s) hydrALAZINE 2023-0 Yes 100 mg = 1 Memoria 100 mg oral 4-20 tab, PO, l tablet 22:44: BID, # 1 [place] 00 tab, 0 Refill(s) nystatin 2022-0 Yes 1 appl, Memori a topical 3-30 TOP, TID, l 100,000 14:56: # 15 gm, 0 Herm adriane units/g 00 Refill(s) cream Retacrit 2022-0 Yes 50 Memoria 10,000 3-30 unit/kg, l units/mL 14:56: IV, 0 [place] injectable 00 Refill(s) solution tamsulosin 3-0 Yes 0.4 mg = 1 M emoria 0.4 mg oral 3-30 cap, PO, l capsule 14:56: Daily, # Tyson n 00 30 cap, 0 Refill(s) nystatin 3-0 Yes 1 appl, Memori a topical 3-30 TOP, TID, l 100,000 14:56: # 15 gm, 0 Herm adriane units/g 00 Refill(s) cream Retacrit 2022-0 Yes 50 Memoria 10,000 3-30 unit/kg, l units/mL 14:56: IV, 0 [place] injectable 00 Refill(s) solution tamsulosin 3-0 Yes 0.4 mg = 1 M emoria 0.4 mg oral 3-30 cap, PO, l capsule 14:56: Daily, # [place] n 00 30 cap, 0 Refill(s) nystatin 3-0 Yes 1 appl, Memori a topical 3-30 TOP, TID, l 100,000 14:56: # 15 gm, 0 Herm adriane units/g 00 Refill(s) cream Retacrit 3-0 Yes 50 Memoria 10,000 3-30 unit/kg, l units/mL 14:56: IV, 0 [place] injectable 00 Refill(s) solution tamsulosin 2023-0 Yes 0.4 mg = 1 M emoria 0.4 mg oral 3-30 cap, PO, l capsule 14:56: Daily, # Tyson n 00 30 cap, 0 Refill(s) nystatin 3-0 Yes 1 appl, Memori a topical 3-30 TOP, TID, l 100,000 14:56: # 15 gm, 0 Herm adriane units/g 00 Refill(s) cream Retacrit 3-0 Yes 50 Memoria 10,000 3-30 unit/kg, l units/mL 14:56: IV, 0 [place] injectable 00 Refill(s) solution tamsulosin 2023-0 Yes 0.4 mg = 1 M emoria 0.4 mg oral 3-30 cap, PO, l capsule 14:56: Daily, # Tyson n 00 30 cap, 0 Refill(s) nystatin 3-0 Yes 1 appl, Memori a topical 3-30 TOP, TID, l 100,000 14:56: # 15 gm, 0 Herm adriane units/g 00 Refill(s) cream Retacrit 3-0 Yes 50 Memoria 10,000 3-30 unit/kg, l units/mL 14:56: IV, 0 [place] injectable 00 Refill(s) solution tamsulosin 2023-0 Yes 0.4 mg = 1 M emoria 0.4 mg oral 3-30 cap, PO, l capsule 14:56: Daily, # Tyson n 00 30 cap, 0 Refill(s) nystatin 3-0 Yes 1 appl, Memori a topical 3-30 TOP, TID, l 100,000 14:56: # 15 gm, 0 Herm adriane units/g 00 Refill(s) cream Retacrit 3-0 Yes 50 Memoria 10,000 3-30 unit/kg, l units/mL 14:56: IV, 0 [place] injectable 00 Refill(s) solution tamsulosin 2023-0 Yes 0.4 mg = 1 M emoria 0.4 mg oral 3-30 cap, PO, l capsule 14:56: Daily, # [place] n 00 30 cap, 0 Refill(s) nystatin 2023-0 Yes 1 appl, Memori a topical 3-30 TOP, TID, l 100,000 14:56: # 15 gm, 0 Herm adriane units/g 00 Refill(s) cream Retacrit 2022-0 Yes 50 Memoria 10,000 3-30 unit/kg, l units/mL 14:56: IV, 0 [place] injectable 00 Refill(s) solution tamsulosin 2022-0 Yes 0.4 mg = 1 M emoria 0.4 mg oral 3-30 cap, PO, l capsule 14:56: Daily, # [place] n 00 30 cap, 0 Refill(s) lactulose 2022-0 Yes 10 gm = 15 Me moria 10 g/15 mL 3-30 mL, PO, l oral and 14:55: Daily, 0 [place] nn rectal 00 Refill(s) liquid levothyroxi 2022-0 Yes 25 Memori a ne 25 mcg 3-30 microgram l (0.025 14:55: = 1 mL, [place] mg)/mL oral 00 PO, Daily, solution 0 Refill(s) levothyroxi 2022-0 Yes 25 Memori a ne 25 mcg 3-30 microgram l (0.025 mg) 14:55: = 1 tab, Her martinez oral tablet 00 PO, Daily, # 30 tab, 0 Refill(s) hydrALAZINE 3-0 Yes 100 mg = 1 Memoria 100 mg oral 3-30 tab, PO, l tablet 14:55: BID, # 60 Tyson n 00 tab, 0 Refill(s) lactulose 2022-0 Yes 10 gm = 15 Me moria 10 g/15 mL 3-30 mL, PO, l oral and 14:55: Daily, 0 [place] nn rectal 00 Refill(s) liquid levothyroxi 2022-0 Yes 25 Memori a ne 25 mcg 3-30 microgram l (0.025 14:55: = 1 mL, [place] mg)/mL oral 00 PO, Daily, solution 0 Refill(s) levothyroxi 2022-0 Yes 25 Memori a ne 25 mcg 3-30 microgram l (0.025 mg) 14:55: = 1 tab, Her martinez oral tablet 00 PO, Daily, # 30 tab, 0 Refill(s) hydrALAZINE 2023-0 Yes 100 mg = 1 Memoria 100 mg oral 3-30 tab, PO, l tablet 14:55: BID, # 60 Tyson n 00 tab, 0 Refill(s) lactulose 2023-0 Yes 10 gm = 15 Me moria 10 g/15 mL 3-30 mL, PO, l oral and 14:55: Daily, 0 [place] nn rectal 00 Refill(s) liquid levothyroxi 2023-0 Yes 25 Memori a ne 25 mcg 3-30 microgram l (0.025 14:55: = 1 mL, [place] mg)/mL oral 00 PO, Daily, solution 0 Refill(s) levothyroxi 3-0 Yes 25 Memori a ne 25 mcg 3-30 microgram l (0.025 mg) 14:55: = 1 tab, Her martinez oral tablet 00 PO, Daily, # 30 tab, 0 Refill(s) hydrALAZINE 2023-0 Yes 100 mg = 1 Memoria 100 mg oral 3-30 tab, PO, l tablet 14:55: BID, # 60 Tyson n 00 tab, 0 Refill(s) lactulose 2023-0 Yes 10 gm = 15 Me moria 10 g/15 mL 3-30 mL, PO, l oral and 14:55: Daily, 0 [place] nn rectal 00 Refill(s) liquid levothyroxi 3-0 Yes 25 Memori a ne 25 mcg 3-30 microgram l (0.025 14:55: = 1 mL, [place] mg)/mL oral 00 PO, Daily, solution 0 Refill(s) levothyroxi 3-0 Yes 25 Memori a ne 25 mcg 3-30 microgram l (0.025 mg) 14:55: = 1 tab, Her martinez oral tablet 00 PO, Daily, # 30 tab, 0 Refill(s) hydrALAZINE 2023-0 Yes 100 mg = 1 Memoria 100 mg oral 3-30 tab, PO, l tablet 14:55: BID, # 60 Tyson n 00 tab, 0 Refill(s) lactulose 2023-0 Yes 10 gm = 15 Me moria 10 g/15 mL 3-30 mL, PO, l oral and 14:55: Daily, 0 [place] nn rectal 00 Refill(s) liquid levothyroxi 2023-0 Yes 25 Memori a ne 25 mcg 3-30 microgram l (0.025 14:55: = 1 mL, [place] mg)/mL oral 00 PO, Daily, solution 0 Refill(s) levothyroxi 2023-0 Yes 25 Memori a ne 25 mcg 3-30 microgram l (0.025 mg) 14:55: = 1 tab, Her martinez oral tablet 00 PO, Daily, # 30 tab, 0 Refill(s) hydrALAZINE 2023-0 Yes 100 mg = 1 Memoria 100 mg oral 3-30 tab, PO, l tablet 14:55: BID, # 60 Tyson n 00 tab, 0 Refill(s) lactulose 2023-0 Yes 10 gm = 15 Me moria 10 g/15 mL 3-30 mL, PO, l oral and 14:55: Daily, 0 [place] nn rectal 00 Refill(s) liquid levothyroxi 3-0 Yes 25 Memori a ne 25 mcg 3-30 microgram l (0.025 14:55: = 1 mL, [place] mg)/mL oral 00 PO, Daily, solution 0 Refill(s) levothyroxi 3-0 Yes 25 Memori a ne 25 mcg 3-30 microgram l (0.025 mg) 14:55: = 1 tab, Her martinez oral tablet 00 PO, Daily, # 30 tab, 0 Refill(s) hydrALAZINE 2023-0 Yes 100 mg = 1 Memoria 100 mg oral 3-30 tab, PO, l tablet 14:55: BID, # 60 Tyson n 00 tab, 0 Refill(s) lactulose 3-0 Yes 10 gm = 15 Me moria 10 g/15 mL 3-30 mL, PO, l oral and 14:55: Daily, 0 [place] nn rectal 00 Refill(s) liquid levothyroxi 3-0 Yes 25 Memori a ne 25 mcg 3-30 microgram l (0.025 14:55: = 1 mL, [place] mg)/mL oral 00 PO, Daily, solution 0 Refill(s) levothyroxi 3-0 Yes 25 Memori a ne 25 mcg 3-30 microgram l (0.025 mg) 14:55: = 1 tab, Her martinez oral tablet 00 PO, Daily, # 30 tab, 0 Refill(s) hydrALAZINE 2023-0 Yes 100 mg = 1 Memoria 100 mg oral 3-30 tab, PO, l tablet 14:55: BID, # 60 [place] n 00 tab, 0 Refill(s) folic acid 3-0 Yes 1 mg, Memori a 3-30 Daily, 0 l 14:54: Refill(s) Lasix 80 mg 2023-0 Yes 80 mg = 1 M emoria oral tablet 3-30 tab, PO, l 14:54: Daily, 0 Refill(s) folic acid 2023-0 Yes 1 mg, Memori a 3-30 Daily, 0 l 14:54: Refill(s) Lasix 80 mg 2023-0 Yes 80 mg = 1 M emoria oral tablet 3-30 tab, PO, l 14:54: Daily, 0 Refill(s) folic acid 2023-0 Yes 1 mg, Memori a 3-30 Daily, 0 l 14:54: Refill(s) Lasix 80 mg 2023-0 Yes 80 mg = 1 M emoria oral tablet 3-30 tab, PO, l 14:54: Daily, 0 Refill(s) folic acid 2023-0 Yes 1 mg, Memori a 3-30 Daily, 0 l 14:54: Refill(s) Lasix 80 mg 2023-0 Yes 80 mg = 1 M emoria oral tablet 3-30 tab, PO, l 14:54: Daily, 0 Refill(s) folic acid 2023-0 Yes 1 mg, Memori a 3-30 Daily, 0 l 14:54: Refill(s) Lasix 80 mg 2023-0 Yes 80 mg = 1 M emoria oral tablet 3-30 tab, PO, l 14:54: Daily, 0 Refill(s) folic acid 2023-0 Yes 1 mg, Memori a 3-30 Daily, 0 l 14:54: Refill(s) Lasix 80 mg 2023-0 Yes 80 mg = 1 M emoria oral tablet 3-30 tab, PO, l 14:54: Daily, 0 Refill(s) folic acid 2023-0 Yes 1 mg, Memori a 3-30 Daily, 0 l 14:54: Refill(s) Lasix 80 mg 2023-0 Yes 80 mg = 1 M emoria oral tablet 3-30 tab, PO, l 14:54: Daily, 0 [place] 00 Refill(s) cholecalcif 2022-0 Yes 125 Memori a jane 3-30 microgram, l 14:53: 0 [place] 00 Refill(s) Plavix 75 2022-0 Yes 75 mg = 1 Mem oria mg oral 3-30 tab, PO, l tablet 14:53: Daily, 0 [place] 00 Refill(s) Proscar 5 2022-0 Yes 5 mg = 1 Adi elly mg oral 3-30 tab, PO, l tablet 14:53: Daily, 0 [place] 00 Refill(s) cholecalcif 2022-0 Yes 125 Memori a jane 3-30 microgram, l 14:53: 0 [place] 00 Refill(s) Plavix 75 2022-0 Yes 75 mg = 1 Mem oria mg oral 3-30 tab, PO, l tablet 14:53: Daily, 0 [place] 00 Refill(s) Proscar 5 2022-0 Yes 5 mg = 1 Adi elly mg oral 3-30 tab, PO, l tablet 14:53: Daily, 0 [place] 00 Refill(s) cholecalcif 2022-0 Yes 125 Memori a jane 3-30 microgram, l 14:53: 0 [place] 00 Refill(s) Plavix 75 2022-0 Yes 75 mg = 1 Mem oria mg oral 3-30 tab, PO, l tablet 14:53: Daily, 0 [place] 00 Refill(s) Proscar 5 3-0 Yes 5 mg = 1 Adi elly mg oral 3-30 tab, PO, l tablet 14:53: Daily, 0 [place] 00 Refill(s) cholecalcif 2022-0 Yes 125 Memori a jane 3-30 microgram, l 14:53: 0 [place] 00 Refill(s) Plavix 75 2022-0 Yes 75 mg = 1 Mem oria mg oral 3-30 tab, PO, l tablet 14:53: Daily, 0 [place] 00 Refill(s) Proscar 5 3-0 Yes 5 mg = 1 Adi elly mg oral 3-30 tab, PO, l tablet 14:53: Daily, 0 [place] 00 Refill(s) cholecalcif 3-0 Yes 125 Memori a jane 3-30 microgram, l 14:53: 0 [place] 00 Refill(s) Plavix 75 2022-0 Yes 75 mg = 1 Mem oria mg oral 3-30 tab, PO, l tablet 14:53: Daily, 0 [place] 00 Refill(s) Proscar 5 2022-0 Yes 5 mg = 1 Adi elly mg oral 3-30 tab, PO, l tablet 14:53: Daily, 0 [place] 00 Refill(s) cholecalcif 2022-0 Yes 125 Memori a jane 3-30 microgram, l 14:53: 0 [place] 00 Refill(s) Plavix 75 2022-0 Yes 75 mg = 1 Mem oria mg oral 3-30 tab, PO, l tablet 14:53: Daily, 0 [place] 00 Refill(s) Proscar 5 0 Yes 5 mg = 1 Adi elly mg oral 3-30 tab, PO, l tablet 14:53: Daily, 0 [place] 00 Refill(s) cholecalcif 2022-0 Yes 125 Memori a jane 3-30 microgram, l 14:53: 0 [place] 00 Refill(s) Plavix 75 0 Yes 75 mg = 1 Mem oria mg oral 3-30 tab, PO, l tablet 14:53: Daily, 0 [place] 00 Refill(s) Proscar 5 2022-0 Yes 5 mg = 1 Adi elly mg oral 3-30 tab, PO, l tablet 14:53: Daily, 0 [place] 00 Refill(s) Lipitor 40 2022-0 Yes 40 mg = 1 Me moria mg oral 3-30 tab, PO, l tablet 14:52: Daily, 0 [place] 00 Refill(s) calcitriol 2022-0 Yes 0.25 Memoria 0.25 mcg 3-30 microgram l oral 14:52: = 1 cap, [place] capsule 00 PO, Daily, 0 Refill(s) Coreg 12.5 2022-0 Yes 12.5 mg = Me moria mg oral 3-30 1 tab, PO, l tablet 14:52: BID, 0 [place] 00 Refill(s) Lipitor 40 2022-0 Yes 40 mg = 1 Me moria mg oral 3-30 tab, PO, l tablet 14:52: Daily, 0 [place] 00 Refill(s) calcitriol 2022-0 Yes 0.25 Memoria 0.25 mcg 3-30 microgram l oral 14:52: = 1 cap, [place] capsule 00 PO, Daily, 0 Refill(s) Coreg 12.5 2022-0 Yes 12.5 mg = Me moria mg oral 3-30 1 tab, PO, l tablet 14:52: BID, 0 [place] 00 Refill(s) Lipitor 40 2022-0 Yes 40 mg = 1 Me moria mg oral 3-30 tab, PO, l tablet 14:52: Daily, 0 [place] 00 Refill(s) calcitriol 0 Yes 0.25 Memoria 0.25 mcg 3-30 microgram l oral 14:52: = 1 cap, [place] capsule 00 PO, Daily, 0 Refill(s) Coreg 12.5 0 Yes 12.5 mg = Me moria mg oral 3-30 1 tab, PO, l tablet 14:52: BID, 0 [place] 00 Refill(s) Lipitor 40 0 Yes 40 mg = 1 Me moria mg oral 3-30 tab, PO, l tablet 14:52: Daily, 0 [place] 00 Refill(s) calcitriol 0 Yes 0.25 Memoria 0.25 mcg 3-30 microgram l oral 14:52: = 1 cap, [place] capsule 00 PO, Daily, 0 Refill(s) Coreg 12.5 0 Yes 12.5 mg = Me moria mg oral 3-30 1 tab, PO, l tablet 14:52: BID, 0 [place] 00 Refill(s) Lipitor 40 0 Yes 40 mg = 1 Me moria mg oral 3-30 tab, PO, l tablet 14:52: Daily, 0 [place] 00 Refill(s) calcitriol 0 Yes 0.25 Memoria 0.25 mcg 3-30 microgram l oral 14:52: = 1 cap, [place] capsule 00 PO, Daily, 0 Refill(s) Coreg 12.5 0 Yes 12.5 mg = Me moria mg oral 3-30 1 tab, PO, l tablet 14:52: BID, 0 [place] 00 Refill(s) Lipitor 40 0 Yes 40 mg = 1 Me moria mg oral 3-30 tab, PO, l tablet 14:52: Daily, 0 [place] 00 Refill(s) calcitriol 0 Yes 0.25 Memoria 0.25 mcg 3-30 microgram l oral 14:52: = 1 cap, [place] capsule 00 PO, Daily, 0 Refill(s) Coreg 12.5 2022-0 Yes 12.5 mg = Me moria mg oral 3-30 1 tab, PO, l tablet 14:52: BID, 0 Refill(s) Lipitor 40 0 Yes 40 mg = 1 Me moria mg oral 3-30 tab, PO, l tablet 14:52: Daily, 0 Refill(s) calcitriol 0 Yes 0.25 Memoria 0.25 mcg 3-30 microgram l oral 14:52: = 1 cap, [place] capsule 00 PO, Daily, 0 Refill(s) Coreg 12.5 2022-0 Yes 12.5 mg = Me moria mg oral 3-30 1 tab, PO, l tablet 14:52: BID, 0 Refill(s) amLODIPine 2022-0 Yes 10, PO, Adi elly 3-30 Daily, 0 l 14:51: Refill(s) aspirin 2022-0 Yes 81 mg, 0 Memori a 3-30 Refill(s) l 14:51: amLODIPine 2022-0 Yes 10, PO, Adi elly 3-30 Daily, 0 l 14:51: Refill(s) aspirin 2022-0 Yes 81 mg, 0 Memori a 3-30 Refill(s) l 14:51: amLODIPine 2022-0 Yes 10, PO, Adi elly 3-30 Daily, 0 l 14:51: Refill(s) aspirin 2022-0 Yes 81 mg, 0 Memori a 3-30 Refill(s) l 14:51: amLODIPine 2022-0 Yes 10, PO, Adi elly 3-30 Daily, 0 l 14:51: Refill(s) aspirin 2022-0 Yes 81 mg, 0 Memori a 3-30 Refill(s) l 14:51: amLODIPine 2022-0 Yes 10, PO, Adi elly 3-30 Daily, 0 l 14:51: Refill(s) aspirin 2022-0 Yes 81 mg, 0 Memori a 3-30 Refill(s) l 14:51: amLODIPine 2022-0 Yes 10, PO, Adi elly 3-30 Daily, 0 l 14:51: Refill(s) aspirin 2022-0 Yes 81 mg, 0 Memori a 3-30 Refill(s) l 14:51: amLODIPine 2022-0 Yes 10, PO, Adi elly 3-30 Daily, 0 l 14:51: Refill(s) aspirin 2022-0 Yes 81 mg, 0 Memori a 3-30 Refill(s) l 14:51: tc 2022- No [id number] 22.4mCi 22.4 Unive rs 99m-tetrofo 11-16 millicurie i ty of smin 15:30: 15:30 , [place] ([facility]) 00 :00 Intravenou Medi vick injection s, ONCE, 1 Bran ch 22.4 dose, On [facility] 11/16/22 at 1030, Routine regadenoson 2022- No [id number] .4mg 0.4 mg, IV Univers (LEXISCAN) 11-16 Push, ity of injection 15:00: 15:24 ONCE, 1 [place] 0.4 mg [place] :00 dose, On [facility] 11/16/22 at 1000, Routine
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 medication : SUMANSAUD tc 2022- No [id number] 7.7mCi 7.7 Univer s 99m-tetrofo 11-16 millicurie i ty of smin 14:00: 14:00 , [place] ([facility]) 00 :00 Intravenou Medi vick injection s, ONCE, 1 Bran ch 7.7 dose, On [facility] 11/16/22 at 0900, Routine iron 2022- No [id number] 250mg 250 mg, IV U nivers sucrose 11-02 Infusion, ity of (VENOFER) 15:45: 17:54 ONCE, [place] 250 mg in 00 :00 Administer Medi vick NaCl 0.9% over 2.5 Branch (NS) 250 mL Hours, On infusion Tue11/02/22 at 0945, For 1 dose iron 2022-0 2022- No [id number] 250mg 250 mg, IV U nivers sucrose 10-29 Infusion, ity of (VENOFER) 16:00: 18:13 ONCE, [place] 250 mg in 00 :00 Administer Medi vick NaCl 0.9% over 2.5 Branch (NS) 250 mL Hours, On infusion 10/29/22 at 1000, For 1 dose iron 2022-0 2022- No [id number] 250mg 250 mg, IV U nivers sucrose 10-26 Infusion, ity of (VENOFER) 15:30: 17:55 ONCE, [place] 250 mg in 00 :00 Administer Medi vick NaCl 0.9% over 2.5 Branch (NS) 250 mL Hours, On infusion Tue10/26/22 at 0930, For 1 dose furosemide 2022-0 2022- No 40mg Take 40 mg Univers 40 mg 2-20 02-20 by mouth ity of tablet 11:05: 00:00 in the [place] 49 :00 morning. Medical Branch furosemide 2022-0 2022- No 40mg Take 40 mg Univers 40 mg 2-20 02-20 by mouth ity of tablet 11:05: 00:00 in the [place] 49 :00 morning. Medical Branch furosemide 3-0 2023- No 40mg Take 40 mg Univers 40 mg 2-20 02-20 by mouth ity of tablet 11:05: 00:00 in the [place] 49 :00 morning. Medical Branch atorvastati 2022-0 Yes 40mg Take 40 mg Univers n 40 mg 2-20 by mouth ity of tablet 10:50: at [place] [address] bedtime. Medical Branch amLODIPine 2022-0 Yes 10mg Take 10 mg U nivers 10 mg 2-20 by mouth ity of tablet 10:50: in the [place] [address] morning. Medical Branch aspirin 81 2022-0 Yes 81mg Take 81 mg U nivers mg chewable 2-20 by mouth ity of tablet 10:50: in the [place] [address] morning. Medical Branch calcitrioL 2022-0 Yes .25ug Take 0.25 U nivers 0.25 mcg 2-20 mcg by ity of capsule 10:50: mouth [place] [address] every Medical other day. Branch carvediloL 2022-0 Yes 12.5mg Take 12.5 Univers 12.5 mg 2-20 mg by ity of tablet 10:50: mouth in [place] [address] the Medical morning Branch and 12.5 mg in the evening. Take with meals. clopidogreL 2022-0 Yes 75mg Take 75 mg Univers 75 mg 2-20 by mouth ity of tablet 10:50: in the [place] [address] morning. Medical Branch Cholecalcif 2022-0 Yes 1{tbl} Take 1 Un leatha jane, 2-20 tablet by ity of Vitamin D3, 10:50: [place]. [place] 125 mcg Medical (5,000 Branch unit) tablet finasteride 2022-0 Yes 5mg Take 5 mg U nivers 5 mg tablet 2-20 by mouth ity of 10:50: in the [place] [address] morning. Medical Branch foLIC acid 2022-0 Yes 1mg Take 1 mg Un leatha 1 mg tablet 2-20 by mouth ity of 10:50: in the [place] [address] morning. Medical Branch hydrALAZINE 2022-0 Yes 100mg Take 100 U nivers 100 mg 2-20 mg by ity of tablet 10:50: mouth in [place] [address] the Medical morning Branch and 100 mg at noon and 100 mg in the evening. acetaminoph 2022-0 Yes 650mg Take 650 U nivers en 325 mg 2-20 mg by ity of Cap 10:50: mouth [place] [address] every 6 Medical (six) Branch hours as needed for Pain (scale 1-3). docusate 2022-0 Yes 100mg Take 100 Univ ers 100 mg 2-20 mg by ity of capsule 10:50: mouth in [place] [address] the Medical morning. Branch atorvastati 2022-0 Yes 40mg Take 40 mg Univers n 40 mg 2-20 by mouth ity of tablet 10:50: at [place] [address] bedtime. Medical Branch amLODIPine 2022-0 Yes 10mg Take 10 mg U nivers 10 mg 2-20 by mouth ity of tablet 10:50: in the [place] [address] morning. Medical Branch aspirin 81 2022-0 Yes 81mg Take 81 mg U nivers mg chewable 2-20 by mouth ity of tablet 10:50: in the [place] [address] morning. Medical Branch calcitrioL 2022-0 Yes .25ug Take 0.25 U nivers 0.25 mcg 2-20 mcg by ity of capsule 10:50: mouth [place] [address] every Medical other day. Branch carvediloL 0 Yes 12.5mg Take 12.5 Univers 12.5 mg 2-20 mg by ity of tablet 10:50: mouth in [place] [address] the Medical morning Branch and 12.5 mg in the evening. Take with meals. clopidogreL 2022-0 Yes 75mg Take 75 mg Univers 75 mg 2-20 by mouth ity of tablet 10:50: in the [place] [address] morning. Medical Branch Cholecalcif 2022-0 Yes 1{tbl} Take 1 Un leatha jane, 2-20 tablet by ity of Vitamin D3, 10:50: mouth. [place] 125 mcg 18 Medical (5,000 Branch unit) tablet finasteride 0 Yes 5mg Take 5 mg U nivers 5 mg tablet 2-20 by mouth ity of 10:50: in the [place] [address] morning. Medical Branch foLIC acid 0 Yes 1mg Take 1 mg Un leatha 1 mg tablet 2-20 by mouth ity of 10:50: in the [place] [address] morning. Medical Branch hydrALAZINE 0 Yes 100mg Take 100 U nivers 100 mg 2-20 mg by ity of tablet 10:50: mouth in [place] [address] the Medical morning Branch and 100 mg at noon and 100 mg in the evening. acetaminoph 0 Yes 650mg Take 650 U nivers en 325 mg 2-20 mg by ity of Cap 10:50: mouth [place] [address] every 6 Medical (six) Branch hours as needed for Pain (scale 1-3). docusate 0 Yes 100mg Take 100 Univ ers 100 mg 2-20 mg by ity of capsule 10:50: mouth in [place] [address] the Medical morning. Branch atorvastati 0 Yes 40mg Take 40 mg Univers n 40 mg 2-20 by mouth ity of tablet 10:50: at [place] [address] bedtime. Medical Branch amLODIPine 2022-0 Yes 10mg Take 10 mg U nivers 10 mg 2-20 by mouth ity of tablet 10:50: in the [place] [address] morning. Medical Branch aspirin 81 2022-0 Yes 81mg Take 81 mg U nivers mg chewable 2-20 by mouth ity of tablet 10:50: in the [place] [address] morning. Medical Branch calcitrioL 2022-0 Yes .25ug Take 0.25 U nivers 0.25 mcg 2-20 mcg by ity of capsule 10:50: mouth [place] [address] every Medical other day. Branch carvediloL 2022-0 Yes 12.5mg Take 12.5 Univers 12.5 mg 2-20 mg by ity of tablet 10:50: mouth in [place] [address] the Medical morning Branch and 12.5 mg in the evening. Take with meals. clopidogreL 2022-0 Yes 75mg Take 75 mg Univers 75 mg 2-20 by mouth ity of tablet 10:50: in the [place] [address] morning. Medical Branch Cholecalcif 2022-0 Yes 1{tbl} Take 1 Un leatha jane, 2-20 tablet by ity of Vitamin D3, 10:50: [place]. [place] 125 mcg 18 Medical (5,000 Branch unit) tablet finasteride 2022-0 Yes 5mg Take 5 mg U nivers 5 mg tablet 2-20 by mouth ity of 10:50: in the [place] [address] morning. Medical Branch foLIC acid 2022-0 Yes 1mg Take 1 mg Un leatha 1 mg tablet 2-20 by mouth ity of 10:50: in the [place] [address] morning. Medical Branch hydrALAZINE 2022-0 Yes 100mg Take 100 U nivers 100 mg 2-20 mg by ity of tablet 10:50: mouth in [place] [address] the Medical morning Branch and 100 mg at noon and 100 mg in the evening. acetaminoph 2022-0 Yes 650mg Take 650 U nivers en 325 mg 2-20 mg by ity of Cap 10:50: mouth [place] [address] every 6 Medical (six) Branch hours as needed for Pain (scale 1-3). docusate 2022-0 Yes 100mg Take 100 Univ ers 100 mg 2-20 mg by ity of capsule 10:50: mouth in [place] [address] the Medical morning. Branch atorvastati 2022-0 Yes 40mg Take 40 mg Univers n 40 mg 2-20 by mouth ity of tablet 10:50: at [place] [address] bedtime. Medical Branch amLODIPine 2022-0 Yes 10mg Take 10 mg U nivers 10 mg 2-20 by mouth ity of tablet 10:50: in the [place] [address] morning. Medical Branch aspirin 81 2022-0 Yes 81mg Take 81 mg U nivers mg chewable 2-20 by mouth ity of tablet 10:50: in the [place] [address] morning. Medical Branch calcitrioL 2022-0 Yes .25ug Take 0.25 U nivers 0.25 mcg 2-20 mcg by ity of capsule 10:50: mouth [place] [address] every Medical other day. Branch carvediloL 2022-0 Yes 12.5mg Take 12.5 Univers 12.5 mg 2-20 mg by ity of tablet 10:50: mouth in [place] [address] the Medical morning Branch and 12.5 mg in the evening. Take with meals. clopidogreL 2022-0 Yes 75mg Take 75 mg Univers 75 mg 2-20 by mouth ity of tablet 10:50: in the [place] [address] morning. Medical Branch Cholecalcif 2022-0 Yes 1{tbl} Take 1 Un leatha jane, 2-20 tablet by ity of Vitamin D3, 10:50: [place]. [place] 125 mcg 18 Medical (5,000 Branch unit) tablet finasteride 2022-0 Yes 5mg Take 5 mg U nivers 5 mg tablet 2-20 by mouth ity of 10:50: in the [place] [address] morning. Medical Branch foLIC acid 2022-0 Yes 1mg Take 1 mg Un leatha 1 mg tablet 2-20 by mouth ity of 10:50: in the [place] [address] morning. Medical Branch hydrALAZINE 2022-0 Yes 100mg Take 100 U nivers 100 mg 2-20 mg by ity of tablet 10:50: mouth in [place] [address] the Medical morning Branch and 100 mg at noon and 100 mg in the evening. acetaminoph 2022-0 Yes 650mg Take 650 U nivers en 325 mg 2-20 mg by ity of Cap 10:50: mouth [place] [address] every 6 Medical (six) Branch hours as needed for Pain (scale 1-3). docusate 2022-0 Yes 100mg Take 100 Univ ers 100 mg 2-20 mg by ity of capsule 10:50: mouth in [place] [address] the Medical morning. Branch atorvastati 2022-0 Yes 40mg Take 40 mg Univers n 40 mg 2-20 by mouth ity of tablet 10:50: at [place] [address] bedtime. Medical Branch amLODIPine 2022-0 Yes 10mg Take 10 mg U nivers 10 mg 2-20 by mouth ity of tablet 10:50: in the [place] [address] morning. Medical Branch aspirin 81 2022-0 Yes 81mg Take 81 mg U nivers mg chewable 2-20 by mouth ity of tablet 10:50: in the [place] [address] morning. Medical Branch calcitrioL 2022-0 Yes .25ug Take 0.25 U nivers 0.25 mcg 2-20 mcg by ity of capsule 10:50: mouth [place] [address] every Medical other day. Branch carvediloL 2022-0 Yes 12.5mg Take 12.5 Univers 12.5 mg 2-20 mg by ity of tablet 10:50: mouth in [place] [address] the Medical morning Branch and 12.5 mg in the evening. Take with meals. clopidogreL 2022-0 Yes 75mg Take 75 mg Univers 75 mg 2-20 by mouth ity of tablet 10:50: in the [place] [address] morning. Medical Branch Cholecalcif 0 Yes 1{tbl} Take 1 Un [place]atha jane, 2-20 tablet by ity of Vitamin D3, 10:50: [place]. [place] 125 mcg Medical (5,000 Branch unit) tablet finasteride 2022-0 Yes 5mg Take 5 mg U nivers 5 mg tablet 2-20 by mouth ity of 10:50: in the [place] [address] morning. Medical Branch foLIC acid 2022-0 Yes 1mg Take 1 mg Un leatha 1 mg tablet 2-20 by mouth ity of 10:50: in the [place] [address] morning. Medical Branch hydrALAZINE 2022-0 Yes 100mg Take 100 U nivers 100 mg 2-20 mg by ity of tablet 10:50: mouth in [place] [address] the Medical morning Branch and 100 mg at noon and 100 mg in the evening. acetaminoph 2022-0 Yes 650mg Take 650 U nivers en 325 mg 2-20 mg by ity of Cap 10:50: mouth [place] [address] every 6 Medical (six) Branch hours as needed for Pain (scale 1-3). docusate 2022-0 Yes 100mg Take 100 Univ ers 100 mg 2-20 mg by ity of capsule 10:50: mouth in [place] [address] the Medical morning. Branch atorvastati 2022-0 Yes 40mg Take 40 mg Univers n 40 mg 2-20 by mouth ity of tablet 10:50: at [place] [address] bedtime. Medical Branch amLODIPine 2022-0 Yes 10mg Take 10 mg U nivers 10 mg 2-20 by mouth ity of tablet 10:50: in the [place] [address] morning. Medical Branch aspirin 81 2022-0 Yes 81mg Take 81 mg U nivers mg chewable 2-20 by mouth ity of tablet 10:50: in the [place] [address] morning. Medical Branch calcitrioL 2022-0 Yes .25ug Take 0.25 U nivers 0.25 mcg 2-20 mcg by ity of capsule 10:50: mouth [place] [address] every Medical other day. Branch carvediloL 2022-0 Yes 12.5mg Take 12.5 Univers 12.5 mg 2-20 mg by ity of tablet 10:50: mouth in [place] [address] the Medical morning Branch and 12.5 mg in the evening. Take with meals. clopidogreL 2022-0 Yes 75mg Take 75 mg Univers 75 mg 2-20 by mouth ity of tablet 10:50: in the [place] [address] morning. Medical Branch Cholecalcif 0 Yes 1{tbl} Take 1 Un leatha jane, 2-20 tablet by ity of Vitamin D3, 10:50: mouth. [place] 125 mcg 18 Medical (5,000 Branch unit) tablet finasteride 2022-0 Yes 5mg Take 5 mg U nivers 5 mg tablet 2-20 by mouth ity of 10:50: in the [place] [address] morning. Medical Branch foLIC acid 2022-0 Yes 1mg Take 1 mg Un leatha 1 mg tablet 2-20 by mouth ity of 10:50: in the [place] [address] morning. Medical Branch hydrALAZINE 2022-0 Yes 100mg Take 100 U nivers 100 mg 2-20 mg by ity of tablet 10:50: mouth in [place] [address] the Medical morning Branch and 100 mg at noon and 100 mg in the evening. acetaminoph 2022-0 Yes 650mg Take 650 U nivers en 325 mg 2-20 mg by ity of Cap 10:50: mouth [place] [address] every 6 Medical (six) Branch hours as needed for Pain (scale 1-3). docusate 2022-0 Yes 100mg Take 100 Univ ers 100 mg 2-20 mg by ity of capsule 10:50: mouth in [place] [address] the Medical morning. Branch atorvastati 2022-0 Yes 40mg Take 40 mg Univers n 40 mg 2-20 by mouth ity of tablet 10:50: at [place] [address] bedtime. Medical Branch amLODIPine 2022-0 Yes 10mg Take 10 mg U nivers 10 mg 2-20 by mouth ity of tablet 10:50: in the [place] [address] morning. Medical Branch aspirin 81 202-0 Yes 81mg Take 81 mg U nivers mg chewable 2-20 by mouth ity of tablet 10:50: in the [place] [address] morning. Medical Branch calcitrioL 2022-0 Yes .25ug Take 0.25 U nivers 0.25 mcg 2-20 mcg by ity of capsule 10:50: mouth [place] [address] every Medical other day. Branch carvediloL 2022-0 Yes 12.5mg Take 12.5 Univers 12.5 mg 2-20 mg by ity of tablet 10:50: mouth in [place] [address] the Medical morning Branch and 12.5 mg in the evening. Take with meals. clopidogreL 2022-0 Yes 75mg Take 75 mg Univers 75 mg 2-20 by mouth ity of tablet 10:50: in the [place] [address] morning. Medical Branch Cholecalcif 2022-0 Yes 1{tbl} Take 1 Un leatha jane, 2-20 tablet by ity of Vitamin D3, 10:50: [place]. [place] 125 mcg 18 Medical (5,000 Branch unit) tablet finasteride 2022-0 Yes 5mg Take 5 mg U nivers 5 mg tablet 2-20 by mouth ity of 10:50: in the [place] [address] morning. Medical Branch foLIC acid 2022-0 Yes 1mg Take 1 mg Un leatha 1 mg tablet 2-20 by mouth ity of 10:50: in the [place] [address] morning. Medical Branch hydrALAZINE 2022-0 Yes 100mg Take 100 U nivers 100 mg 2-20 mg by ity of tablet 10:50: mouth in [place] [address] the Medical morning Branch and 100 mg at noon and 100 mg in the evening. acetaminoph 2022-0 Yes 650mg Take 650 U nivers en 325 mg 2-20 mg by ity of Cap 10:50: mouth [place] [address] every 6 Medical (six) Branch hours as needed for Pain (scale 1-3). docusate 2023-0 Yes 100mg Take 100 Univ ers 100 mg 2-20 mg by ity of capsule 10:50: mouth in [place] [address] the Medical morning. Branch atorvastati 2022-0 Yes 40mg Take 40 mg Univers n 40 mg 2-20 by mouth ity of tablet 10:50: at [place] [address] bedtime. Medical Branch amLODIPine 2022-0 Yes 10mg Take 10 mg U nivers 10 mg 2-20 by mouth ity of tablet 10:50: in the [place] [address] morning. Medical Branch aspirin 81 2022-0 Yes 81mg Take 81 mg U nivers mg chewable 2-20 by mouth ity of tablet 10:50: in the [place] [address] morning. Medical Branch calcitrioL 2022-0 Yes .25ug Take 0.25 U nivers 0.25 mcg 2-20 mcg by ity of capsule 10:50: mouth [place] [address] every Medical other day. Branch carvediloL 2022-0 Yes 12.5mg Take 12.5 Univers 12.5 mg 2-20 mg by ity of tablet 10:50: mouth in [place] [address] the Medical morning Branch and 12.5 mg in the evening. Take with meals. clopidogreL 2022-0 Yes 75mg Take 75 mg Univers 75 mg 2-20 by mouth ity of tablet 10:50: in the [place] [address] morning. Medical Branch Cholecalcif 2022-0 Yes 1{tbl} Take 1 Un leatha jane, 2-20 tablet by ity of Vitamin D3, 10:50: [place]. [place] 125 mcg 18 Medical (5,000 Branch unit) tablet finasteride 2022-0 Yes 5mg Take 5 mg U nivers 5 mg tablet 2-20 by mouth ity of 10:50: in the [place] [address] morning. Medical Branch foLIC acid 2022-0 Yes 1mg Take 1 mg Un leatha 1 mg tablet 2-20 by mouth ity of 10:50: in the [place] [address] morning. Medical Branch hydrALAZINE 2022-0 Yes 100mg Take 100 U nivers 100 mg 2-20 mg by ity of tablet 10:50: mouth in [place] [address] the Medical morning Branch and 100 mg at noon and 100 mg in the evening. acetaminoph 2022-0 Yes 650mg Take 650 U nivers en 325 mg 2-20 mg by ity of Cap 10:50: mouth [place] [address] every 6 Medical (six) Branch hours as needed for Pain (scale 1-3). docusate 2023-0 Yes 100mg Take 100 Univ ers 100 mg 2-20 mg by ity of capsule 10:50: mouth in [place] [address] the Medical morning. Branch atorvastati 2022-0 Yes 40mg Take 40 mg Univers n 40 mg 2-20 by mouth ity of tablet 10:50: at [place] [address] bedtime. Medical Branch amLODIPine 2022-0 Yes 10mg Take 10 mg U nivers 10 mg 2-20 by mouth ity of tablet 10:50: in the [place] [address] morning. Medical Branch aspirin 81 2022-0 Yes 81mg Take 81 mg U nivers mg chewable 2-20 by mouth ity of tablet 10:50: in the [place] [address] morning. Medical Branch calcitrioL 2022-0 Yes .25ug Take 0.25 U nivers 0.25 mcg 2-20 mcg by ity of capsule 10:50: mouth [place] [address] every Medical other day. Branch carvediloL 2022-0 Yes 12.5mg Take 12.5 Univers 12.5 mg 2-20 mg by ity of tablet 10:50: mouth in [place] [address] the Medical morning Branch and 12.5 mg in the evening. Take with meals. clopidogreL 2022-0 Yes 75mg Take 75 mg [facility] 75 mg 2-20 by mouth ity of tablet 10:50: in the [place] [address] morning. Medical Branch Cholecalcif 2022-0 Yes 1{tbl} Take 1 Un leatha jane, 2-20 tablet by ity of Vitamin D3, 10:50: mouth. [place] 125 mcg 18 Medical (5,000 Branch unit) tablet finasteride 2022-0 Yes 5mg Take 5 mg U nivers 5 mg tablet 2-20 by mouth ity of 10:50: in the [place] [address] morning. Medical Branch foLIC acid 2022-0 Yes 1mg Take 1 mg Un leatha 1 mg tablet 2-20 by mouth ity of 10:50: in the [place] [address] morning. Medical Branch hydrALAZINE 2022-0 Yes 100mg Take 100 U nivers 100 mg 2-20 mg by ity of tablet 10:50: mouth in [place] [address] the Medical morning Branch and 100 mg at noon and 100 mg in the evening. acetaminoph 2022-0 Yes 650mg Take 650 U nivers en 325 mg 2-20 mg by ity of Cap 10:50: mouth [place] [address] every 6 Medical (six) Branch hours as needed for Pain (scale 1-3). docusate 2022-0 Yes 100mg Take 100 [facility] ers 100 mg 2-20 mg by ity of capsule 10:50: mouth in [place] [address] the Medical morning. Branch atorvastati 2022-0 Yes 40mg Take 40 mg [facility] n 40 mg 2-20 by mouth ity of tablet 10:50: at [place] [address] bedtime. Medical Branch amLODIPine 2022-0 Yes 10mg Take 10 mg U nivers 10 mg 2-20 by mouth ity of tablet 10:50: in the [place] [address] morning. Medical Branch aspirin 81 2022-0 Yes 81mg Take 81 mg U nivers mg chewable 2-20 by mouth ity of tablet 10:50: in the [place] [address] morning. Medical Branch calcitrioL 2022-0 Yes .25ug Take 0.25 U nivers 0.25 mcg 2-20 mcg by ity of capsule 10:50: mouth [place] [address] every Medical other day. Branch carvediloL 2022-0 Yes 12.5mg Take 12.5 [facility] 12.5 mg 2-20 mg by ity of tablet 10:50: mouth in [place] [address] the Medical morning Branch and 12.5 mg in the evening. Take with meals. clopidogreL 2022-0 Yes 75mg Take 75 mg [facility] 75 mg 2-20 by mouth ity of tablet 10:50: in the [place] [address] morning. Medical Branch Cholecalcif 2022-0 Yes 1{tbl} Take 1 Un leatha jane, 2-20 tablet by ity of Vitamin D3, 10:50: mouth. [place] 125 mcg 18 Medical (5,000 Branch unit) tablet finasteride 2022-0 Yes 5mg Take 5 mg U nivers 5 mg tablet 2-20 by mouth ity of 10:50: in the [place] [address] morning. Medical Branch foLIC acid 2022-0 Yes 1mg Take 1 mg Un leatha 1 mg tablet 2-20 by mouth ity of 10:50: in the [place] [address] morning. Medical Branch hydrALAZINE 2022-0 Yes 100mg Take 100 U nivers 100 mg 2-20 mg by ity of tablet 10:50: mouth in [place] [address] the Medical morning Branch and 100 mg at noon and 100 mg in the evening. acetaminoph 2022-0 Yes 650mg Take 650 U nivers en 325 mg 2-20 mg by ity of Cap 10:50: mouth [place] [address] every 6 Medical (six) Branch hours as needed for Pain (scale 1-3). docusate 0 Yes 100mg Take 100 [facility] ers 100 mg 2-20 mg by ity of capsule 10:50: mouth in [place] [address] the Medical morning. Branch atorvastati 0 Yes 40mg Take 40 mg [facility] n 40 mg 2-20 by mouth ity of tablet 10:50: at [place] [address] bedtime. Medical Branch amLODIPine 2022-0 Yes 10mg Take 10 mg U nivers 10 mg 2-20 by mouth ity of tablet 10:50: in the [place] [address] morning. Medical Branch aspirin 81 0 Yes 81mg Take 81 mg U nivers mg chewable 2-20 by mouth ity of tablet 10:50: in the [place] [address] morning. Medical Branch calcitrioL 0 Yes .25ug Take 0.25 U nivers 0.25 mcg 2-20 mcg by ity of capsule 10:50: mouth [place] [address] every Medical other day. Branch carvediloL 0 Yes 12.5mg Take 12.5 [facility] 12.5 mg 2-20 mg by ity of tablet 10:50: mouth in [place] [address] the Medical morning Branch and 12.5 mg in the evening. Take with meals. clopidogreL 0 Yes 75mg Take 75 mg [facility] 75 mg 2-20 by mouth ity of tablet 10:50: in the [place] [address] morning. Medical Branch Cholecalcif 0 Yes 1{tbl} Take 1 Un leatha jane, 2-20 tablet by ity of Vitamin D3, 10:50: mouth. [place] 125 m[place] 18 Medical (5,000 Branch unit) tablet finasteride 2022-0 Yes 5mg Take 5 mg U nivers 5 mg tablet 2-20 by mouth ity of 10:50: in the [place] [address] morning. Medical Branch foLIC acid 0 Yes 1mg Take 1 mg Un leatha 1 mg tablet 2-20 by mouth ity of 10:50: in the [place] [address] morning. Medical Branch hydrALAZINE 2022-0 Yes 100mg Take 100 U nivers 100 mg 2-20 mg by ity of tablet 10:50: mouth in [place] [address] the Medical morning Branch and 100 mg at noon and 100 mg in the evening. acetaminoph 2022-0 Yes 650mg Take 650 U nivers en 325 mg 2-20 mg by ity of Cap 10:50: mouth [place] [address] every 6 Medical (six) Branch hours as needed for Pain (scale 1-3). docusate 2022-0 Yes 100mg Take 100 [facility] ers 100 mg 2-20 mg by ity of capsule 10:50: mouth in [place] [address] the Medical morning. Branch atorvastati 2022-0 Yes 40mg Take 40 mg [facility] n 40 mg 2-20 by mouth ity of tablet 10:50: at [place] [address] bedtime. Medical Branch amLODIPine 2022-0 Yes 10mg Take 10 mg U nivers 10 mg 2-20 by mouth ity of tablet 10:50: in the [place] [address] morning. Medical Branch aspirin 81 2022-0 Yes 81mg Take 81 mg U nivers mg chewable 2-20 by mouth ity of tablet 10:50: in the [place] [address] morning. Medical Branch calcitrioL 2022-0 Yes .25ug Take 0.25 U nivers 0.25 mcg 2-20 mcg by ity of capsule 10:50: mouth [place] [address] every Medical other day. Branch carvediloL 2022-0 Yes 12.5mg Take 12.5 [facility] 12.5 mg 2-20 mg by ity of tablet 10:50: mouth in [place] [address] the Medical morning Branch and 12.5 mg in the evening. Take with meals. clopidogreL 2022-0 Yes 75mg Take 75 mg [facility] 75 mg 2-20 by mouth ity of tablet 10:50: in the [place] [address] morning. Medical Branch Cholecalcif 2022-0 Yes 1{tbl} Take 1 Un leatha jane, 2-20 tablet by ity of Vitamin D3, 10:50: mouth. [place] 125 m[place] 18 Medical (5,000 Branch unit) tablet finasteride 2022-0 Yes 5mg Take 5 mg U nivers 5 mg tablet 2-20 by mouth ity of 10:50: in the [place] [address] morning. Medical Branch foLIC acid 2022-0 Yes 1mg Take 1 mg Un leatha 1 mg tablet 2-20 by mouth ity of 10:50: in the [place] [address] morning. Medical Branch hydrALAZINE 2022-0 Yes 100mg Take 100 U nivers 100 mg 2-20 mg by ity of tablet 10:50: mouth in [place] [address] the Medical morning Branch and 100 mg at noon and 100 mg in the evening. acetaminoph 2022-0 Yes 650mg Take 650 U nivers en 325 mg 2-20 mg by ity of Cap 10:50: mouth [place] [address] every 6 Medical (six) Branch hours as needed for Pain (scale 1-3). docusate 2022-0 Yes 100mg Take 100 [facility] ers 100 mg 2-20 mg by ity of capsule 10:50: mouth in [place] [address] the Medical morning. Branch atorvastati 2022-0 Yes 40mg Take 40 mg [facility] n 40 mg 2-20 by mouth ity of tablet 10:50: at [place] [address] bedtime. Medical Branch amLODIPine 2022-0 Yes 10mg Take 10 mg U nivers 10 mg 2-20 by mouth ity of tablet 10:50: in the [place] [address] morning. Medical Branch aspirin 81 2022-0 Yes 81mg Take 81 mg U nivers mg chewable 2-20 by mouth ity of tablet 10:50: in the [place] [address] morning. Medical Branch calcitrioL 2022-0 Yes .25ug Take 0.25 U nivers 0.25 mcg 2-20 mcg by ity of capsule 10:50: mouth [place] [address] every Medical other day. Branch carvediloL 2022-0 Yes 12.5mg Take 12.5 [facility] 12.5 mg 2-20 mg by ity of tablet 10:50: mouth in [place] [address] the Medical morning Branch and 12.5 mg in the evening. Take with meals. clopidogreL 2022-0 Yes 75mg Take 75 mg [facility] 75 mg 2-20 by mouth ity of tablet 10:50: in the [place] [address] morning. Medical Branch Cholecalcif 2022-0 Yes 1{tbl} Take 1 Un leatha jane, 2-20 tablet by ity of Vitamin D3, 10:50: mouth. [place] 125 mcg 18 Medical (5,000 Branch unit) tablet finasteride 2022-0 Yes 5mg Take 5 mg U nivers 5 mg tablet 2-20 by mouth ity of 10:50: in the [place] [address] morning. Medical Branch foLIC acid 2022-0 Yes 1mg Take 1 mg Un leatha 1 mg tablet 2-20 by mouth ity of 10:50: in the [place] 18 morning. Medical Branch hydrALAZINE 2022-0 Yes 100mg Take 100 U nivers 100 mg 2-20 mg by ity of tablet 10:50: mouth in [place] [address] the Medical morning Branch and 100 mg at noon and 100 mg in the evening. acetaminoph 2022-0 Yes 650mg Take 650 U nivers en 325 mg 2-20 mg by ity of Cap 10:50: mouth [place] [address] every 6 Medical (six) Branch hours as needed for Pain (scale 1-3). docusate 2022-0 Yes 100mg Take 100 [facility] ers 100 mg 2-20 mg by ity of capsule 10:50: mouth in [place] [address] the Medical morning. Branch atorvastati 2022-0 Yes 40mg Take 40 mg [facility] n 40 mg 2-20 by mouth ity of tablet 10:50: at [place] [address] bedtime. Medical Branch amLODIPine 2022-0 Yes 10mg Take 10 mg U nivers 10 mg 2-20 by mouth ity of tablet 10:50: in the [place] [address] morning. Medical Branch aspirin 81 2022-0 Yes 81mg Take 81 mg U nivers mg chewable 2-20 by mouth ity of tablet 10:50: in the [place] [address] morning. Medical Branch calcitrioL 2022-0 Yes .25ug Take 0.25 U nivers 0.25 mcg 2-20 mcg by ity of capsule 10:50: mouth [place] [address] every Medical other day. Branch carvediloL 0 Yes 12.5mg Take 12.5 [facility] 12.5 mg 2-20 mg by ity of tablet 10:50: mouth in [place] [address] the Medical morning Branch and 12.5 mg in the evening. Take with meals. clopidogreL 2022-0 Yes 75mg Take 75 mg [facility] 75 mg 2-20 by mouth ity of tablet 10:50: in the [place] [address] morning. Medical Branch Cholecalcif 2022-0 Yes 1{tbl} Take 1 Un leatha jane, 2-20 tablet by ity of Vitamin D3, 10:50: mouth. [place] 125 mcg 18 Medical (5,000 Branch unit) tablet finasteride 2022-0 Yes 5mg Take 5 mg U nivers 5 mg tablet 2-20 by mouth ity of 10:50: in the [place] [address] morning. Medical Branch foLIC acid 2022-0 Yes 1mg Take 1 mg Un leatha 1 mg tablet 2-20 by mouth ity of 10:50: in the [place] [address] morning. Medical Branch hydrALAZINE 2022-0 Yes 100mg Take 100 U nivers 100 mg 2-20 mg by ity of tablet 10:50: mouth in [place] [address] the Medical morning Branch and 100 mg at noon and 100 mg in the evening. acetaminoph 2022-0 Yes 650mg Take 650 U nivers en 325 mg 2-20 mg by ity of Cap 10:50: mouth [place] [address] every 6 Medical (six) Branch hours as needed for Pain (scale 1-3). docusate 2022-0 Yes 100mg Take 100 [facility] ers 100 mg 2-20 mg by ity of capsule 10:50: mouth in [place] [address] the Medical morning. Branch atorvastati 0 Yes 40mg Take 40 mg [facility] n 40 mg 2-20 by mouth ity of tablet 10:50: at [place] [address] bedtime. Medical Branch amLODIPine 2022-0 Yes 10mg Take 10 mg U nivers 10 mg 2-20 by mouth ity of tablet 10:50: in the [place] [address] morning. Medical Branch aspirin 81 2022-0 Yes 81mg Take 81 mg U nivers mg chewable 2-20 by mouth ity of tablet 10:50: in the [place] [address] morning. Medical Branch calcitrioL 2022-0 Yes .25ug Take 0.25 U nivers 0.25 mcg 2-20 mcg by ity of capsule 10:50: mouth [place] [address] every Medical other day. Branch carvediloL 2022-0 Yes 12.5mg Take 12.5 [facility] 12.5 mg 2-20 mg by ity of tablet 10:50: mouth in [place] [address] the Medical morning Branch and 12.5 mg in the evening. Take with meals. clopidogreL 2022-0 Yes 75mg Take 75 mg [facility] 75 mg 2-20 by mouth ity of tablet 10:50: in the [place] [address] morning. Medical Branch Cholecalcif 2022-0 Yes 1{tbl} Take 1 Un leatha jane, 2-20 tablet by ity of Vitamin D3, 10:50: mouth. [place] 125 mcg 18 Medical (5,000 Branch unit) tablet finasteride 2022-0 Yes 5mg Take 5 mg U nivers 5 mg tablet 2-20 by mouth ity of 10:50: in the [place] [address] morning. Medical Branch foLIC acid 2022-0 Yes 1mg Take 1 mg Un leatha 1 mg tablet 2-20 by mouth ity of 10:50: in the [place] [address] morning. Medical Branch hydrALAZINE 2022-0 Yes 100mg Take 100 U nivers 100 mg 2-20 mg by ity of tablet 10:50: mouth in [place] [address] the Medical morning Branch and 100 mg at noon and 100 mg in the evening. acetaminoph 2022-0 Yes 650mg Take 650 U nivers en 325 mg 2-20 mg by ity of Cap 10:50: mouth [place] [address] every 6 Medical (six) Branch hours as needed for Pain (scale 1-3). docusate 2022-0 Yes 100mg Take 100 [facility] ers 100 mg 2-20 mg by ity of capsule 10:50: mouth in [place] [address] the Medical morning. Branch atorvastati 0 Yes 40mg Take 40 mg [facility] n 40 mg 2-20 by mouth ity of tablet 10:50: at [place] [address] bedtime. Medical Branch amLODIPine 2022-0 Yes 10mg Take 10 mg U nivers 10 mg 2-20 by mouth ity of tablet 10:50: in the [place] [address] morning. Medical Branch aspirin 81 2022-0 Yes 81mg Take 81 mg U nivers mg chewable 2-20 by mouth ity of tablet 10:50: in the [place] [address] morning. Medical Branch calcitrioL 2022-0 Yes .25ug Take 0.25 U nivers 0.25 mcg 2-20 mcg by ity of capsule 10:50: mouth [place] [address] every Medical other day. Branch carvediloL 2022-0 Yes 12.5mg Take 12.5 [facility] 12.5 mg 2-20 mg by ity of tablet 10:50: mouth in [place] [address] the Medical morning Branch and 12.5 mg in the evening. Take with meals. clopidogreL 2022-0 Yes 75mg Take 75 mg [facility] 75 mg 2-20 by mouth ity of tablet 10:50: in the [place] [address] morning. Medical Branch Cholecalcif 2022-0 Yes 1{tbl} Take 1 Un leatha jane, 2-20 tablet by ity of Vitamin D3, 10:50: mouth. [place] 125 mcg 18 Medical (5,000 Branch unit) tablet finasteride 2022-0 Yes 5mg Take 5 mg U nivers 5 mg tablet 2-20 by mouth ity of 10:50: in the [place] [address] morning. Medical Branch foLIC acid 2022-0 Yes 1mg Take 1 mg Un leatha 1 mg tablet 2-20 by mouth ity of 10:50: in the [place] [address] morning. Medical Branch hydrALAZINE 2022-0 Yes 100mg Take 100 U nivers 100 mg 2-20 mg by ity of tablet 10:50: mouth in [place] [address] the Medical morning Branch and 100 mg at noon and 100 mg in the evening. acetaminoph 2022-0 Yes 650mg Take 650 U nivers en 325 mg 2-20 mg by ity of Cap 10:50: mouth [place] [address] every 6 Medical (six) Branch hours as needed for Pain (scale 1-3). docusate 2022-0 Yes 100mg Take 100 [facility] ers 100 mg 2-20 mg by ity of capsule 10:50: mouth in [place] [address] the Medical morning. Branch atorvastati 2022-0 Yes 40mg Take 40 mg [facility] n 40 mg 2-20 by mouth ity of tablet 10:50: at [place] [address] bedtime. Medical Branch amLODIPine 2022-0 Yes 10mg Take 10 mg U nivers 10 mg 2-20 by mouth ity of tablet 10:50: in the [place] [address] morning. Medical Branch aspirin 81 2022-0 Yes 81mg Take 81 mg U nivers mg chewable 2-20 by mouth ity of tablet 10:50: in the [place] [address] morning. Medical Branch calcitrioL 2022-0 Yes .25ug Take 0.25 U nivers 0.25 mcg 2-20 mcg by ity of capsule 10:50: mouth [place] [address] every Medical other day. Branch carvediloL 2022-0 Yes 12.5mg Take 12.5 [facility] 12.5 mg 2-20 mg by ity of tablet 10:50: mouth in [place] [address] the Medical morning Branch and 12.5 mg in the evening. Take with meals. clopidogreL 2022-0 Yes 75mg Take 75 mg [facility] 75 mg 2-20 by mouth ity of tablet 10:50: in the [place] [address] morning. Medical Branch Cholecalcif 2022-0 Yes 1{tbl} Take 1 Un leatha jane, 2-20 tablet by ity of Vitamin D3, 10:50: mouth. [place] 125 mcg 18 Medical (5,000 Branch unit) tablet finasteride 2022-0 Yes 5mg Take 5 mg U nivers 5 mg tablet 2-20 by mouth ity of 10:50: in the [place] [address] morning. Medical Branch foLIC acid 2022-0 Yes 1mg Take 1 mg Un leatha 1 mg tablet 2-20 by mouth ity of 10:50: in the [place] [address] morning. Medical Branch hydrALAZINE 2022-0 Yes 100mg Take 100 U nivers 100 mg 2-20 mg by ity of tablet 10:50: mouth in [place] [address] the Medical morning Branch and 100 mg at noon and 100 mg in the evening. acetaminoph 2022-0 Yes 650mg Take 650 U nivers en 325 mg 2-20 mg by ity of Cap 10:50: mouth [place] [address] every 6 Medical (six) Branch hours as needed for Pain (scale 1-3). docusate 2022-0 Yes 100mg Take 100 [facility] ers 100 mg 2-20 mg by ity of capsule 10:50: mouth in [place] [address] the Medical morning. Branch atorvastati 2022-0 Yes 40mg Take 40 mg [facility] n 40 mg 2-20 by mouth ity of tablet 10:50: at [place] [address] bedtime. Medical Branch amLODIPine 2022-0 Yes 10mg Take 10 mg U nivers 10 mg 2-20 by mouth ity of tablet 10:50: in the [place] [address] morning. Medical Branch aspirin 81 2022-0 Yes 81mg Take 81 mg U nivers mg chewable 2-20 by mouth ity of tablet 10:50: in the [place] [address] morning. Medical Branch calcitrioL 2022-0 Yes .25ug Take 0.25 U nivers 0.25 mcg 2-20 mcg by ity of capsule 10:50: mouth [place] [address] every Medical other day. Branch carvediloL 2022-0 Yes 12.5mg Take 12.5 [facility] 12.5 mg 2-20 mg by ity of tablet 10:50: mouth in [place] [address] the Medical morning Branch and 12.5 mg in the evening. Take with meals. clopidogreL 2022-0 Yes 75mg Take 75 mg [facility] 75 mg 2-20 by mouth ity of tablet 10:50: in the [place] [address] morning. Medical Branch Cholecalcif 2022-0 Yes 1{tbl} Take 1 Un leatha jane, 2-20 tablet by ity of Vitamin D3, 10:50: mouth. [place] 125 mcg 18 Medical (5,000 Branch unit) tablet finasteride 2022-0 Yes 5mg Take 5 mg U nivers 5 mg tablet 2-20 by mouth ity of 10:50: in the [place] [address] morning. Medical Branch foLIC acid 2022-0 Yes 1mg Take 1 mg Un leatha 1 mg tablet 2-20 by mouth ity of 10:50: in the [place] [address] morning. Medical Branch hydrALAZINE 2022-0 Yes 100mg Take 100 U nivers 100 mg 2-20 mg by ity of tablet 10:50: mouth in [place] [address] the Medical morning Branch and 100 mg at noon and 100 mg in the evening. acetaminoph 2022-0 Yes 650mg Take 650 U nivers en 325 mg 2-20 mg by ity of Cap 10:50: mouth [place] [address] every 6 Medical (six) Branch hours as needed for Pain (scale 1-3). docusate 2022-0 Yes 100mg Take 100 [facility] ers 100 mg 2-20 mg by ity of capsule 10:50: mouth in [place] [address] the Medical morning. Branch atorvastati 2022-0 Yes 40mg Take 40 mg [facility] n 40 mg 2-20 by mouth ity of tablet 10:50: at [place] [address] bedtime. Medical Branch amLODIPine 2022-0 Yes 10mg Take 10 mg U nivers 10 mg 2-20 by mouth ity of tablet 10:50: in the [place] [address] morning. Medical Branch aspirin 81 2022-0 Yes 81mg Take 81 mg U nivers mg chewable 2-20 by mouth ity of tablet 10:50: in the [place] [address] morning. Medical Branch calcitrioL 2022-0 Yes .25ug Take 0.25 U nivers 0.25 mcg 2-20 mcg by ity of capsule 10:50: mouth [place] [address] every Medical other day. Branch carvediloL 2022-0 Yes 12.5mg Take 12.5 [facility] 12.5 mg 2-20 mg by ity of tablet 10:50: mouth in [place] [address] the Medical morning Branch and 12.5 mg in the evening. Take with meals. clopidogreL 3-0 Yes 75mg Take 75 mg [facility] 75 mg 2-20 by mouth ity of tablet 10:50: in the [place] [address] morning. Medical Branch Cholecalcif 2022-0 Yes 1{tbl} Take 1 Un leatha jane, 2-20 tablet by ity of Vitamin D3, 10:50: mouth. [place] 125 mcg 18 Medical (5,000 Branch unit) tablet finasteride 2022-0 Yes 5mg Take 5 mg U nivers 5 mg tablet 2-20 by mouth ity of 10:50: in the [place] [address] morning. Medical Branch foLIC acid 2022-0 Yes 1mg Take 1 mg Un leatha 1 mg tablet 2-20 by mouth ity of 10:50: in the [place] [address] morning. Medical Branch hydrALAZINE 2022-0 Yes 100mg Take 100 U nivers 100 mg 2-20 mg by ity of tablet 10:50: mouth in [place] [address] the Medical morning Branch and 100 mg at noon and 100 mg in the evening. acetaminoph 2022-0 Yes 650mg Take 650 U nivers en 325 mg 2-20 mg by ity of Cap 10:50: mouth [place] [address] every 6 Medical (six) Branch hours as needed for Pain (scale 1-3). docusate 2022-0 Yes 100mg Take 100 [facility] ers 100 mg 2-20 mg by ity of capsule 10:50: mouth in [place] [address] the Medical morning. Branch atorvastati 2022-0 Yes 40mg Take 40 mg [facility] n 40 mg 2-20 by mouth ity of tablet 10:50: at [place] [address] bedtime. Medical Branch amLODIPine 2022-0 Yes 10mg Take 10 mg U nivers 10 mg 2-20 by mouth ity of tablet 10:50: in the [place] [address] morning. Medical Branch aspirin 81 2022-0 Yes 81mg Take 81 mg U nivers mg chewable 2-20 by mouth ity of tablet 10:50: in the [place] [address] morning. Medical Branch calcitrioL 2022-0 Yes .25ug Take 0.25 U nivers 0.25 mcg 2-20 mcg by ity of capsule 10:50: mouth [place] [address] every Medical other day. Branch carvediloL 2022-0 Yes 12.5mg Take 12.5 [facility] 12.5 mg 2-20 mg by ity of tablet 10:50: mouth in [place] [address] the Medical morning Branch and 12.5 mg in the evening. Take with meals. clopidogreL 2023-0 Yes 75mg Take 75 mg [facility] 75 mg 2-20 by mouth ity of tablet 10:50: in the [place] [address] morning. Medical Branch Cholecalcif 2022-0 Yes 1{tbl} Take 1 Un leatha jane, 2-20 tablet by ity of Vitamin D3, 10:50: mouth. [place] 125 m[place] 18 Medical (5,000 Branch unit) tablet finasteride 2022-0 Yes 5mg Take 5 mg U nivers 5 mg tablet 2-20 by mouth ity of 10:50: in the [place] [address] morning. Medical Branch foLIC acid 2022-0 Yes 1mg Take 1 mg Un leatha 1 mg tablet 2-20 by mouth ity of 10:50: in the [place] [address] morning. Medical Branch hydrALAZINE 2022-0 Yes 100mg Take 100 U nivers 100 mg 2-20 mg by ity of tablet 10:50: mouth in [place] [address] the Medical morning Branch and 100 mg at noon and 100 mg in the evening. acetaminoph 2022-0 Yes 650mg Take 650 U nivers en 325 mg 2-20 mg by ity of Cap 10:50: mouth [place] [address] every 6 Medical (six) Branch hours as needed for Pain (scale 1-3). docusate 2022-0 Yes 100mg Take 100 [facility] ers 100 mg 2-20 mg by ity of capsule 10:50: mouth in [place] [address] the Medical morning. Branch atorvastati 0 Yes 40mg Take 40 mg [facility] n 40 mg 2-20 by mouth ity of tablet 10:50: at [place] [address] bedtime. Medical Branch amLODIPine 2022-0 Yes 10mg Take 10 mg U nivers 10 mg 2-20 by mouth ity of tablet 10:50: in the [place] [address] morning. Medical Branch aspirin 81 2022-0 Yes 81mg Take 81 mg U nivers mg chewable 2-20 by mouth ity of tablet 10:50: in the [place] [address] morning. Medical Branch calcitrioL 2022-0 Yes .25ug Take 0.25 U nivers 0.25 mcg 2-20 mcg by ity of capsule 10:50: mouth [place] [address] every Medical other day. Branch carvediloL 2022-0 Yes 12.5mg Take 12.5 [facility] 12.5 mg 2-20 mg by ity of tablet 10:50: mouth in [place] [address] the Medical morning Branch and 12.5 mg in the evening. Take with meals. clopidogreL 2022-0 Yes 75mg Take 75 mg [facility] 75 mg 2-20 by mouth ity of tablet 10:50: in the [place] [address] morning. Medical Branch Cholecalcif 2022-0 Yes 1{tbl} Take 1 Un leatha jane, 2-20 tablet by ity of Vitamin D3, 10:50: mouth. [place] 125 m[place] 18 Medical (5,000 Branch unit) tablet finasteride 2022-0 Yes 5mg Take 5 mg U nivers 5 mg tablet 2-20 by mouth ity of 10:50: in the [place] [address] morning. Medical Branch foLIC acid 2022-0 Yes 1mg Take 1 mg Un leatha 1 mg tablet 2-20 by mouth ity of 10:50: in the [place] [address] morning. Medical Branch hydrALAZINE 2022-0 Yes 100mg Take 100 U nivers 100 mg 2-20 mg by ity of tablet 10:50: mouth in [place] [address] the Medical morning Branch and 100 mg at noon and 100 mg in the evening. acetaminoph 2022-0 Yes 650mg Take 650 U nivers en 325 mg 2-20 mg by ity of Cap 10:50: mouth [place] [address] every 6 Medical (six) Branch hours as needed for Pain (scale 1-3). docusate 2022-0 Yes 100mg Take 100 [facility] ers 100 mg 2-20 mg by ity of capsule 10:50: mouth in [place] [address] the Medical morning. Branch atorvastati 2022-0 Yes 40mg Take 40 mg [facility] n 40 mg 2-20 by mouth ity of tablet 10:50: at [place] [address] bedtime. Medical Branch amLODIPine 2022-0 Yes 10mg Take 10 mg U nivers 10 mg 2-20 by mouth ity of tablet 10:50: in the [place] [address] morning. Medical Branch aspirin 81 2022-0 Yes 81mg Take 81 mg U nivers mg chewable 2-20 by mouth ity of tablet 10:50: in the [place] [address] morning. Medical Branch calcitrioL 2022-0 Yes .25ug Take 0.25 U nivers 0.25 mcg 2-20 mcg by ity of capsule 10:50: mouth [place] [address] every Medical other day. Branch carvediloL 2022-0 Yes 12.5mg Take 12.5 [facility] 12.5 mg 2-20 mg by ity of tablet 10:50: mouth in [place] [address] the Medical morning Branch and 12.5 mg in the evening. Take with meals. clopidogreL 2022-0 Yes 75mg Take 75 mg [facility] 75 mg 2-20 by mouth ity of tablet 10:50: in the [place] [address] morning. Medical Branch Cholecalcif 2022-0 Yes 1{tbl} Take 1 Un [place] jane, 2-20 tablet by ity of Vitamin D3, 10:50: mouth. [place] 125 mcg 18 Medical (5,000 Branch unit) tablet finasteride 2022-0 Yes 5mg Take 5 mg U nivers 5 mg tablet 2-20 by mouth ity of 10:50: in the [place] [address] morning. Medical Branch foLIC acid 2022-0 Yes 1mg Take 1 mg Un [place] 1 mg tablet 2-20 by mouth ity of 10:50: in the [place] [address] morning. Medical Branch hydrALAZINE 2022-0 Yes 100mg Take 100 U n[facility] 100 mg 2-20 mg by ity of tablet 10:50: mouth in [place] [address] the Medical morning Branch and 100 mg at noon and 100 mg in the evening. acetaminoph 2022-0 Yes 650mg Take 650 U nivers en 325 mg 2-20 mg by ity of Cap 10:50: mouth [place] [address] every 6 Medical (six) Branch hours as needed for Pain (scale 1-3). docusate 2022-0 Yes 100mg Take 100 [facility] ers 100 mg 2-20 mg by ity of capsule 10:50: mouth in [place] [address] the Medical morning. Branch atorvastati 2022-0 Yes 40mg Take 40 mg [facility] n 40 mg 2-20 by mouth ity of tablet 10:50: at [place] [address] bedtime. Medical Branch amLODIPine 2022-0 Yes 10mg Take 10 mg U nivers 10 mg 2-20 by mouth ity of tablet 10:50: in the [place] [address] morning. Medical Branch aspirin 81 2022-0 Yes 81mg Take 81 mg [facility] mg chewable 2-20 by mouth ity of tablet 10:50: in the [place] [address] morning. Medical Branch calcitrioL 2022-0 Yes .25ug Take 0.25 U nivers 0.25 mcg 2-20 mcg by ity of capsule 10:50: mouth [place] [address] every Medical other day. Branch carvediloL 2022-0 Yes 12.5mg Take 12.5 [facility] 12.5 mg 2-20 mg by ity of tablet 10:50: mouth in [place] [address] the Medical morning Branch and 12.5 mg in the evening. Take with meals. clopidogreL 2022-0 Yes 75mg Take 75 mg [facility] 75 mg 2-20 by mouth ity of tablet 10:50: in the [place] [address] morning. Medical Branch Cholecalcif 2022-0 Yes 1{tbl} Take 1 Un [place] jane, 2-20 tablet by ity of Vitamin D3, 10:50: mouth. [place] 125 mcg 18 Medical (5,000 Branch unit) tablet finasteride 2022-0 Yes 5mg Take 5 mg [facility] n[facility] 5 mg tablet 2-20 by mouth ity of 10:50: in the [place] [address] morning. Medical Branch foLIC acid 2022-0 Yes 1mg Take 1 mg Un leatha 1 mg tablet 2-20 by mouth ity of 10:50: in the [place] [address] morning. Medical Branch hydrALAZINE 2022-0 Yes 100mg Take 100 [facility] n[facility] 100 mg 2-20 mg by ity of tablet 10:50: mouth in [place] [address] the Medical morning Branch and 100 mg at noon and 100 mg in the evening. acetaminoph 2022-0 Yes 650mg Take 650 U nivers en 325 mg 2-20 mg by ity of Cap 10:50: mouth [place] [address] every 6 Medical (six) Branch hours as needed for Pain (scale 1-3). docusate 2022-0 Yes 100mg Take 100 [facility] ers 100 mg 2-20 mg by ity of capsule 10:50: mouth in [place] [address] the Medical morning. Branch atorvastati 0 Yes 40mg Take 40 mg [facility] n 40 mg 2-20 by mouth ity of tablet 10:50: at [place] [address] bedtime. Medical Branch amLODIPine 2022-0 Yes 10mg Take 10 mg U nivers 10 mg 2-20 by mouth ity of tablet 10:50: in the [place] [address] morning. Medical Branch aspirin 81 2022-0 Yes 81mg Take 81 mg [facility] n[facility] mg chewable 2-20 by mouth ity of tablet 10:50: in the [place] [address] morning. Medical Branch calcitrioL 2022-0 Yes .25ug Take 0.25 U nivers 0.25 mcg 2-20 mcg by ity of capsule 10:50: mouth [place] [address] every Medical other day. Branch carvediloL 0 Yes 12.5mg Take 12.5 [facility] 12.5 mg 2-20 mg by ity of tablet 10:50: mouth in [place] [address] the Medical morning Branch and 12.5 mg in the evening. Take with meals. clopidogreL 2022-0 Yes 75mg Take 75 mg [facility] 75 mg 2-20 by mouth ity of tablet 10:50: in the [place] [address] morning. Medical Branch Cholecalcif 2022-0 Yes 1{tbl} Take 1 Un [place] jane, 2-20 tablet by ity of Vitamin D3, 10:50: mouth. [place] 125 mcg 18 Medical (5,000 Branch unit) tablet finasteride 0 Yes 5mg Take 5 mg U nivers 5 mg tablet 2-20 by mouth ity of 10:50: in the [place] [address] morning. Medical Branch foLIC acid 0 Yes 1mg Take 1 mg Un leatha 1 mg tablet 2-20 by mouth ity of 10:50: in the [place] [address] morning. Medical Branch hydrALAZINE 0 Yes 100mg Take 100 U nivers 100 mg 2-20 mg by ity of tablet 10:50: mouth in [place] [address] the Medical morning Branch and 100 mg at noon and 100 mg in the evening. acetaminoph 0 Yes 650mg Take 650 U nivers en 325 mg 2-20 mg by ity of Cap 10:50: mouth [place] [address] every 6 Medical (six) Branch hours as needed for Pain (scale 1-3). docusate 2022-0 Yes 100mg Take 100 [facility] ers 100 mg 2-20 mg by ity of capsule 10:50: mouth in [place] [address] the Medical morning. Branch atorvastati 0 Yes 40mg Take 40 mg [facility] n 40 mg 2-20 by mouth ity of tablet 10:50: at [place] [address] bedtime. Medical Branch amLODIPine 2022-0 Yes 10mg Take 10 mg U nivers 10 mg 2-20 by mouth ity of tablet 10:50: in the [place] [address] morning. Medical Branch aspirin 81 2022-0 Yes 81mg Take 81 mg [facility] nivers mg chewable 2-20 by mouth ity of tablet 10:50: in the [place] [address] morning. Medical Branch calcitrioL 2022-0 Yes .25ug Take 0.25 U nivers 0.25 mcg 2-20 mcg by ity of capsule 10:50: mouth [place] [address] every Medical other day. Branch carvediloL 2022-0 Yes 12.5mg Take 12.5 [facility] 12.5 mg 2-20 mg by ity of tablet 10:50: mouth in [place] [address] the Medical morning Branch and 12.5 mg in the evening. Take with meals. clopidogreL 2022-0 Yes 75mg Take 75 mg [facility] 75 mg 2-20 by mouth ity of tablet 10:50: in the [place] [address] morning. Medical Branch Cholecalcif 2022-0 Yes 1{tbl} Take 1 Un [place] jane, 2-20 tablet by ity of Vitamin D3, 10:50: mouth. [place] 125 mcg 18 Medical (5,000 Branch unit) tablet finasteride 2022-0 Yes 5mg Take 5 mg U nivers 5 mg tablet 2-20 by mouth ity of 10:50: in the [place] [address] morning. Medical Branch foLIC acid 2022-0 Yes 1mg Take 1 mg Un leatha 1 mg tablet 2-20 by mouth ity of 10:50: in the [place] [address] morning. Medical Branch hydrALAZINE 2022-0 Yes 100mg Take 100 U nivers 100 mg 2-20 mg by ity of tablet 10:50: mouth in [place] [address] the Medical morning Branch and 100 mg at noon and 100 mg in the evening. acetaminoph 2022-0 Yes 650mg Take 650 U nivers en 325 mg 2-20 mg by ity of Cap 10:50: mouth [place] [address] every 6 Medical (six) Branch hours as needed for Pain (scale 1-3). docusate 2022-0 Yes 100mg Take 100 [facility] ers 100 mg 2-20 mg by ity of capsule 10:50: mouth in [place] [address] the Medical morning. Branch atorvastati 2022-0 Yes 40mg Take 40 mg [facility] n 40 mg 2-20 by mouth ity of tablet 10:50: at [place] [address] bedtime. Medical Branch amLODIPine 2022-0 Yes 10mg Take 10 mg U nivers 10 mg 2-20 by mouth ity of tablet 10:50: in the [place] [address] morning. Medical Branch aspirin 81 2022-0 Yes 81mg Take 81 mg [facility] nivers mg chewable 2-20 by mouth ity of tablet 10:50: in the [place] [address] morning. Medical Branch calcitrioL 2022-0 Yes .25ug Take 0.25 U nivers 0.25 mcg 2-20 mcg by ity of capsule 10:50: mouth [place] [address] every Medical other day. Branch carvediloL 2022-0 Yes 12.5mg Take 12.5 [facility] 12.5 mg 2-20 mg by ity of tablet 10:50: mouth in [place] [address] the Medical morning Branch and 12.5 mg in the evening. Take with meals. clopidogreL 2022-0 Yes 75mg Take 75 mg [facility] 75 mg 2-20 by mouth ity of tablet 10:50: in the [place] [address] morning. Medical Branch Cholecalcif 2022-0 Yes 1{tbl} Take 1 Un leatha jane, 2-20 tablet by ity of Vitamin D3, 10:50: mouth. [place] 125 mcg 18 Medical (5,000 Branch unit) tablet finasteride 2022-0 Yes 5mg Take 5 mg U nivers 5 mg tablet 2-20 by mouth ity of 10:50: in the [place] [address] morning. Medical Branch foLIC acid 0 Yes 1mg Take 1 mg Un leatha 1 mg tablet 2-20 by mouth ity of 10:50: in the [place] [address] morning. Medical Branch hydrALAZINE 2022-0 Yes 100mg Take 100 U nivers 100 mg 2-20 mg by ity of tablet 10:50: mouth in [place] [address] the Medical morning Branch and 100 mg at noon and 100 mg in the evening. acetaminoph 2022-0 Yes 650mg Take 650 U nivers en 325 mg 2-20 mg by ity of Cap 10:50: mouth [place] [address] every 6 Medical (six) Branch hours as needed for Pain (scale 1-3). docusate 2022-0 Yes 100mg Take 100 [facility] ers 100 mg 2-20 mg by ity of capsule 10:50: mouth in [place] [address] the Medical morning. Branch atorvastati 2022-0 Yes 40mg Take 40 mg [facility] n 40 mg 2-20 by mouth ity of tablet 10:50: at [place] [address] bedtime. Medical Branch amLODIPine 2022-0 Yes 10mg Take 10 mg U nivers 10 mg 2-20 by mouth ity of tablet 10:50: in the [place] [address] morning. Medical Branch aspirin 81 2022-0 Yes 81mg Take 81 mg U nivers mg chewable 2-20 by mouth ity of tablet 10:50: in the [place] [address] morning. Medical Branch calcitrioL 2022-0 Yes .25ug Take 0.25 U nivers 0.25 mcg 2-20 mcg by ity of capsule 10:50: mouth [place] [address] every Medical other day. Branch carvediloL 0 Yes 12.5mg Take 12.5 [facility] 12.5 mg 2-20 mg by ity of tablet 10:50: mouth in [place] [address] the Medical morning Branch and 12.5 mg in the evening. Take with meals. clopidogreL 0 Yes 75mg Take 75 mg [facility] 75 mg 2-20 by mouth ity of tablet 10:50: in the [place] [address] morning. Medical Branch Cholecalcif 0 Yes 1{tbl} Take 1 Un leatha jane, 2-20 tablet by ity of Vitamin D3, 10:50: mouth. [place] 125 mcg 18 Medical (5,000 Branch unit) tablet finasteride 0 Yes 5mg Take 5 mg U nivers 5 mg tablet 2-20 by mouth ity of 10:50: in the [place] [address] morning. Medical Branch foLIC acid 0 Yes 1mg Take 1 mg Un leatha 1 mg tablet 2-20 by mouth ity of 10:50: in the [place] [address] morning. Medical Branch hydrALAZINE 2022-0 Yes 100mg Take 100 U nivers 100 mg 2-20 mg by ity of tablet 10:50: mouth in [place] [address] the Medical morning Branch and 100 mg at noon and 100 mg in the evening. acetaminoph 0 Yes 650mg Take 650 U nivers en 325 mg 2-20 mg by ity of Cap 10:50: mouth [place] [address] every 6 Medical (six) Branch hours as needed for Pain (scale 1-3). docusate 2022-0 Yes 100mg Take 100 [facility] ers 100 mg 2-20 mg by ity of capsule 10:50: mouth in [place] [address] the Medical morning. Branch atorvastati 2022-0 Yes 40mg Take 40 mg [facility] n 40 mg 2-20 by mouth ity of tablet 10:50: at [place] [address] bedtime. Medical Branch amLODIPine 0 Yes 10mg Take 10 mg U nivers 10 mg 2-20 by mouth ity of tablet 10:50: in the [place] [address] morning. Medical Branch aspirin 81 2022-0 Yes 81mg Take 81 mg U nivers mg chewable 2-20 by mouth ity of tablet 10:50: in the [place] [address] morning. Medical Branch calcitrioL 2022-0 Yes .25ug Take 0.25 U nivers 0.25 mcg 2-20 mcg by ity of capsule 10:50: mouth [place] [address] every Medical other day. Branch carvediloL 0 Yes 12.5mg Take 12.5 [facility] 12.5 mg 2-20 mg by ity of tablet 10:50: mouth in [place] [address] the Medical morning Branch and 12.5 mg in the evening. Take with meals. clopidogreL 2022-0 Yes 75mg Take 75 mg [facility] 75 mg 2-20 by mouth ity of tablet 10:50: in the [place] [address] morning. Medical Branch Cholecalcif 0 Yes 1{tbl} Take 1 Un leatha jane, 2-20 tablet by ity of Vitamin D3, 10:50: mouth. [place] 125 mcg 18 Medical (5,000 Branch unit) tablet finasteride 0 Yes 5mg Take 5 mg U nivers 5 mg tablet 2-20 by mouth ity of 10:50: in the [place] [address] morning. Medical Branch foLIC acid 0 Yes 1mg Take 1 mg Un leatha 1 mg tablet 2-20 by mouth ity of 10:50: in the [place] [address] morning. Medical Branch hydrALAZINE 2022-0 Yes 100mg Take 100 U nivers 100 mg 2-20 mg by ity of tablet 10:50: mouth in [place] [address] the Medical morning Branch and 100 mg at noon and 100 mg in the evening. acetaminoph 2022-0 Yes 650mg Take 650 U nivers en 325 mg 2-20 mg by ity of Cap 10:50: mouth [place] [address] every 6 Medical (six) Branch hours as needed for Pain (scale 1-3). docusate 2022-0 Yes 100mg Take 100 [facility] ers 100 mg 2-20 mg by ity of capsule 10:50: mouth in [place] [address] the Medical morning. Branch atorvastati 2022-0 Yes 40mg Take 40 mg [facility] n 40 mg 2-20 by mouth ity of tablet 10:50: at [place] [address] bedtime. Medical Branch amLODIPine 2022-0 Yes 10mg Take 10 mg U nivers 10 mg 2-20 by mouth ity of tablet 10:50: in the [place] [address] morning. Medical Branch aspirin 81 2022-0 Yes 81mg Take 81 mg U nivers mg chewable 2-20 by mouth ity of tablet 10:50: in the [place] [address] morning. Medical Branch calcitrioL 2022-0 Yes .25ug Take 0.25 U nivers 0.25 mcg 2-20 mcg by ity of capsule 10:50: mouth [place] [address] every Medical other day. Branch carvediloL 2022-0 Yes 12.5mg Take 12.5 [facility] 12.5 mg 2-20 mg by ity of tablet 10:50: mouth in [place] [address] the Medical morning Branch and 12.5 mg in the evening. Take with meals. clopidogreL 2022-0 Yes 75mg Take 75 mg [facility] 75 mg 2-20 by mouth ity of tablet 10:50: in the [place] [address] morning. Medical Branch Cholecalcif 2022-0 Yes 1{tbl} Take 1 Un leatha jane, 2-20 tablet by ity of Vitamin D3, 10:50: mouth. [place] 125 mcg 18 Medical (5,000 Branch unit) tablet finasteride 2022-0 Yes 5mg Take 5 mg U nivers 5 mg tablet 2-20 by mouth ity of 10:50: in the [place] [address] morning. Medical Branch foLIC acid 2022-0 Yes 1mg Take 1 mg Un leatha 1 mg tablet 2-20 by mouth ity of 10:50: in the [place] [address] morning. Medical Branch hydrALAZINE 2022-0 Yes 100mg Take 100 U nivers 100 mg 2-20 mg by ity of tablet 10:50: mouth in [place] [address] the Medical morning Branch and 100 mg at noon and 100 mg in the evening. acetaminoph 2022-0 Yes 650mg Take 650 U nivers en 325 mg 2-20 mg by ity of Cap 10:50: mouth [place] [address] every 6 Medical (six) Branch hours as needed for Pain (scale 1-3). docusate 2023-0 Yes 100mg Take 100 [facility] ers 100 mg 2-20 mg by ity of capsule 10:50: mouth in [place] [address] the Medical morning. Branch atorvastati 2022-0 Yes 40mg Take 40 mg [facility] n 40 mg 2-20 by mouth ity of tablet 10:50: at [place] [address] bedtime. Medical Branch amLODIPine 2022-0 Yes 10mg Take 10 mg U nivers 10 mg 2-20 by mouth ity of tablet 10:50: in the [place] [address] morning. Medical Branch aspirin 81 2022-0 Yes 81mg Take 81 mg U nivers mg chewable 2-20 by mouth ity of tablet 10:50: in the [place] [address] morning. Medical Branch calcitrioL 2022-0 Yes .25ug Take 0.25 U nivers 0.25 mcg 2-20 mcg by ity of capsule 10:50: mouth [place] [address] every Medical other day. Branch carvediloL 2022-0 Yes 12.5mg Take 12.5 [facility] 12.5 mg 2-20 mg by ity of tablet 10:50: mouth in [place] [address] the Medical morning Branch and 12.5 mg in the evening. Take with meals. clopidogreL 2022-0 Yes 75mg Take 75 mg [facility] 75 mg 2-20 by mouth ity of tablet 10:50: in the [place] [address] morning. Medical Branch Cholecalcif 2022-0 Yes 1{tbl} Take 1 Un leatha jane, 2-20 tablet by ity of Vitamin D3, 10:50: mouth. [place] 125 mcg 18 Medical (5,000 Branch unit) tablet finasteride 2022-0 Yes 5mg Take 5 mg U nivers 5 mg tablet 2-20 by mouth ity of 10:50: in the [place] [address] morning. Medical Branch foLIC acid 2022-0 Yes 1mg Take 1 mg Un leatha 1 mg tablet 2-20 by mouth ity of 10:50: in the [place] [address] morning. Medical Branch hydrALAZINE 2022-0 Yes 100mg Take 100 U nivers 100 mg 2-20 mg by ity of tablet 10:50: mouth in [place] [address] the Medical morning Branch and 100 mg at noon and 100 mg in the evening. acetaminoph 2022-0 Yes 650mg Take 650 U nivers en 325 mg 2-20 mg by ity of Cap 10:50: mouth [place] [address] every 6 Medical (six) Branch hours as needed for Pain (scale 1-3). docusate 2023-0 Yes 100mg Take 100 [facility] ers 100 mg 2-20 mg by ity of capsule 10:50: mouth in [place] 18 the morning. Branch iron 2022- No [id number] 250mg 250 mg, IV U nivers sucrose 10-2217 Infusion, ity of (VENOFER) 15:15: 17:55 ONCE, [place] 250 mg in 00 :00 Administer Medi vick NaCl 0.9% over 1.5 Branch (NS) 250 mL Hours, On infusion 10/22/22 at 0915, For 1 dose furosemide 0 Yes 80mg 80 mg, Unive rs (LASIX) 22 Oral, BID, ity of tablet 80 02:00: First dose [place] mg 00 on Sat Medical 09/25/22 at [place] 1999, Until Discontinu ed, Routine lactulose 0 Yes [id number] 30mL Take 30 mL [facility] 10 gram/15 1-22 by mouth ity o f mL solution 00:00: in the morning. Medical Branch lactulose 2022-0 Yes [id number] 30mL Take 30 mL [facility] 10 gram/15 1-22 by mouth ity o f mL solution 00:00: in the morning. Medical Branch lactulose 2022-0 Yes [id number] 30mL Take 30 mL [facility] 10 gram/15 1-22 by mouth ity o f mL solution 00:00: in the morning. Medical Branch lactulose 2022-0 Yes [id number] 30mL Take 30 mL [facility] 10 gram/15 1-22 by mouth ity o f mL solution 00:00: in the morning. Medical Branch lactulose 2022-0 Yes [id number] 30mL Take 30 mL [facility] 10 gram/15 1-22 by mouth ity o f mL solution 00:00: in the morning. Medical Branch lactulose 2022-0 Yes [id number] 30mL Take 30 mL [facility] 10 gram/15 1-22 by mouth ity o f mL solution 00:00: in the morning. Medical Branch lactulose 2022-0 Yes [id number] 30mL Take 30 mL [facility] 10 gram/15 1-22 by mouth ity o f mL solution 00:00: in the morning. Medical Branch lactulose 2023-0 Yes [id number] 30mL Take 30 mL [facility] 10 gram/15 1-22 by mouth ity o f mL solution 00:00: in the morning. Medical Branch lactulose 2023-0 Yes [id number] 30mL Take 30 mL [facility] 10 gram/15 1-22 by mouth ity o f mL solution 00:00: in the morning. Medical Branch lactulose 2023-0 Yes [id number] 30mL Take 30 mL [facility] 10 gram/15 1-22 by mouth ity o f mL solution 00:00: in the morning. Medical Branch lactulose 3-0 Yes [id number] 30mL Take 30 mL [facility] 10 gram/15 1-22 by mouth ity o f mL solution 00:00: in the morning. Medical Branch lactulose 2023-0 Yes [id number] 30mL Take 30 mL [facility] 10 gram/15 1-22 by mouth ity o f mL solution 00:00: in the morning. Medical Branch lactulose 3-0 Yes [id number] 30mL Take 30 mL [facility] 10 gram/15 1-22 by mouth ity o f mL solution 00:00: in the morning. Medical Branch lactulose 3-0 Yes [id number] 30mL Take 30 mL [facility] 10 gram/15 1-22 by mouth ity o f mL solution 00:00: in the morning. Medical Branch lactulose 2023-0 Yes [id number] 30mL Take 30 mL [facility] 10 gram/15 1-22 by mouth ity o f mL solution 00:00: in the morning. Medical Branch lactulose 2023-0 Yes [id number] 30mL Take 30 mL [facility] 10 gram/15 1-22 by mouth ity o f mL solution 00:00: in the morning. Medical Branch lactulose 2023-0 Yes [id number] 30mL Take 30 mL [facility] 10 gram/15 1-22 by mouth ity o f mL solution 00:00: in the morning. Medical Branch lactulose 2023-0 Yes [id number] 30mL Take 30 mL [facility] 10 gram/15 1-22 by mouth ity o f mL solution 00:00: in the morning. Medical Branch lactulose 2023-0 Yes [id number] 30mL Take 30 mL [facility] 10 gram/15 1-22 by mouth ity o f mL solution 00:00: in the morning. Medical Branch lactulose 2023-0 Yes [id number] 30mL Take 30 mL [facility] 10 gram/15 1-22 by mouth ity o f mL solution 00:00: in the morning. Medical Branch lactulose 2023-0 Yes [id number] 30mL Take 30 mL [facility] 10 gram/15 1-22 by mouth ity o f mL solution 00:00: in the morning. Medical Branch lactulose 2023-0 Yes [id number] 30mL Take 30 mL [facility] 10 gram/15 1-22 by mouth ity o f mL solution 00:00: in the morning. Medical Branch lactulose 2023-0 Yes [id number] 30mL Take 30 mL [facility] 10 gram/15 1-22 by mouth ity o f mL solution 00:00: in the morning. Medical Branch lactulose 2023-0 Yes [id number] 30mL Take 30 mL [facility] 10 gram/15 1-22 by mouth ity o f mL solution 00:00: in the morning. Medical Branch lactulose 2023-0 Yes [id number] 30mL Take 30 mL [facility] 10 gram/15 1-22 by mouth ity o f mL solution 00:00: in the morning. Medical Branch lactulose 2023-0 Yes [id number] 30mL Take 30 mL [facility] 10 gram/15 1-22 by mouth ity o f mL solution 00:00: in the morning. Medical Branch lactulose 2023-0 Yes [id number] 30mL Take 30 mL [facility] 10 gram/15 1-22 by mouth ity o f mL solution 00:00: in the morning. Medical Branch lactulose 2023-0 Yes [id number] 30mL Take 30 mL [facility] 10 gram/15 1-22 by mouth ity o f mL solution 00:00: in the morning. Medical Branch lactulose 2023-0 Yes [id number] 30mL Take 30 mL [facility] 10 gram/15 1-22 by mouth ity o f mL solution 00:00: in the morning. Medical Branch lactulose 2022-0 Yes [id number] 30mL Take 30 mL [facility] 10 gram/15 1-22 by mouth ity o f mL solution 00:00: in the morning. Medical Branch lactulose 2022-0 Yes [id number] 30mL Take 30 mL [facility] 10 gram/15 1-22 by mouth ity o f mL solution 00:00: in the morning. Medical Branch lactulose 2022-0 Yes [id number] 30mL Take 30 mL [facility] 10 gram/15 1-22 by mouth ity o f mL solution 00:00: in the morning. Medical Branch lactulose 2022-0 Yes [id number] 30mL Take 30 mL [facility] 10 gram/15 1-22 by mouth ity o f mL solution 00:00: in the morning. Medical Branch lactulose 2022-0 Yes [id number] 30mL Take 30 mL [facility] 10 gram/15 1-22 by mouth ity o f mL solution 00:00: in the morning. Medical Branch lactulose 2022-0 Yes [id number] 30mL Take 30 mL [facility] 10 gram/15 1-22 by mouth ity o f mL solution 00:00: in the morning. Medical Branch hydralAZINE 0 2022- No 10mg 10 mg, Uni vers (APRESOLINE 09-25 Slow IV ity of ) injection 20:15: 20:21 [place], [place] 10 mg 00 :00 ONCE, 1 Medical dose, On Branch 09/25/22 at 1415, STAT atorvastati 2022-0 Yes 40mg Take 40 mg [facility] n 40 mg - by mouth ity of tablet 18:31: at [place] bedtime. Medical Branch amLODIPine 2022-0 Yes 10mg Take 10 mg U nivers 10 mg -21 by mouth ity of tablet 18:31: in the [place] morning. Medical Branch aspirin 81 2022-0 Yes 81mg Take 81 mg U nivers mg chewable -21 by mouth ity of tablet 18:31: in the [place] morning. Medical Branch calcitrioL 2022-0 Yes .25ug Take 0.25 U nivers 0.25 mcg 1-21 mcg by ity of capsule 18:31: mouth every Medical other day. Branch carvediloL 2022-0 Yes 12.5mg Take 12.5 [facility] 12.5 mg 1-21 mg by ity of tablet 18:31: mouth in the Medical morning Branch and 12.5 mg in the evening. Take with meals. clopidogreL 2022-0 Yes 75mg Take 75 mg [facility] 75 mg 1-21 by mouth ity of tablet 18:31: in the [place] morning. Medical Branch ondansetron 2022-0 Yes 4mg Take 4 mg U nivers 4 mg tablet 1-21 by mouth ity of 18:31: every 4 [place] [id number] (four) Medical hours. Branch Cholecalcif 2022-0 Yes 1{tbl} Take 1 Un leatha jane, 1-21 tablet by ity of Vitamin D3, 18:31: mouth. [place] 125 mcg 02 Medical (5,000 Branch unit) tablet tamsulosin 2022-0 Yes Take by Univ ers 0.4 mg 24 1-21 mouth ity of hr capsule 18:31: daily. Medical Branch finasteride 2022-0 Yes 5mg Take 5 mg U nivers 5 mg tablet 1-21 by mouth ity of 18:31: in the [place] morning. Medical Branch foLIC acid 2022-0 Yes 1mg Take 1 mg Un leatha 1 mg tablet 1-21 by mouth ity of 18:31: in the [place] morning. Medical Branch hydrALAZINE 2022-0 Yes 100mg Take 100 U nivers 100 mg 1-21 mg by ity of tablet 18:31: mouth in the Medical morning Branch and 100 mg at noon and 100 mg in the evening. acetaminoph 2022-0 Yes 650mg Take 650 U nivers en 325 mg 1-21 mg by ity of Cap 18:31: mouth every 6 Medical (six) Branch hours as needed for Pain (scale 1-3). furosemide 2022-0 Yes 40mg Take 40 mg U nivers 40 mg 1-21 by mouth ity of tablet 18:31: in the [place] morning. Medical Branch docusate 2022-0 Yes 100mg Take 100 [facility] ers 100 mg 1-21 mg by ity of capsule 18:31: mouth in the Medical morning. Branch atorvastati 0 Yes 40mg Take 40 mg [facility] n 40 mg 1-21 by mouth ity of tablet 18:31: at [place] bedtime. Medical Branch amLODIPine 2022-0 Yes 10mg Take 10 mg U nivers 10 mg 1-21 by mouth ity of tablet 18:31: in the [place] morning. Medical Branch aspirin 81 2022-0 Yes 81mg Take 81 mg U nivers mg chewable 1-21 by mouth ity of tablet 18:31: in the [place] morning. Medical Branch calcitrioL 2022-0 Yes .25ug Take 0.25 U nivers 0.25 mcg 1-21 mcg by ity of capsule 18:31: mouth every Medical other day. Branch carvediloL 2022-0 Yes 12.5mg Take 12.5 [facility] 12.5 mg 1-21 mg by ity of tablet 18:31: mouth in the Medical morning Branch and 12.5 mg in the evening. Take with meals. clopidogreL 2022-0 Yes 75mg Take 75 mg [facility] 75 mg 1-21 by mouth ity of tablet 18:31: in the [place] morning. Medical Branch ondansetron 2022-0 Yes 4mg Take 4 mg U nivers 4 mg tablet 1-21 by mouth ity of 18:31: every 4 (four) Medical hours. Branch Cholecalcif 2022-0 Yes 1{tbl} Take 1 Un leatha jane, 1-21 tablet by ity of Vitamin D3, 18:31: [place] 125 mcg 02 Medical (5,000 Branch unit) tablet tamsulosin 0 Yes Take by Univ ers 0.4 mg 24 1-21 mouth ity of hr capsule 18:31: daily. Medical Branch finasteride 2022-0 Yes 5mg Take 5 mg U nivers 5 mg tablet 1-21 by mouth ity of 18:31: in the [place] morning. Medical Branch foLIC acid 2022-0 Yes 1mg Take 1 mg Un leatha 1 mg tablet 1-21 by mouth ity of 18:31: in the [place] morning. Medical Branch hydrALAZINE 2022-0 Yes 100mg Take 100 U nivers 100 mg 1-21 mg by ity of tablet 18:31: mouth in [place] 02 the Medical morning Branch and 100 mg at noon and 100 mg in the evening. acetaminoph 2022-0 Yes 650mg Take 650 U nivers en 325 mg 1-21 mg by ity of Cap 18:31: mouth [place] every 6 Medical (six) Branch hours as needed for Pain (scale 1-3). furosemide 2022-0 Yes 40mg Take 40 mg U nivers 40 mg 1-21 by mouth ity of tablet 18:31: in the [place] morning. Medical Branch docusate 2022-0 Yes 100mg Take 100 Univ ers 100 mg 1-21 mg by ity of capsule 18:31: mouth in [place] the Medical morning. Branch atorvastati 2022-0 Yes 40mg Take 40 mg [facility] n 40 mg 1-21 by mouth ity of tablet 18:31: at [place] [address] bedtime. Medical Branch amLODIPine 2022-0 Yes 10mg Take 10 mg U nivers 10 mg 1-21 by mouth ity of tablet 18:31: in the [place] morning. Medical Branch aspirin 81 2022-0 Yes 81mg Take 81 mg U nivers mg chewable 1-21 by mouth ity of tablet 18:31: in the [place] morning. Medical Branch calcitrioL 2022-0 Yes .25ug Take 0.25 U nivers 0.25 mcg 1-21 mcg by ity of capsule 18:31: mouth [place] every Medical other day. Branch carvediloL 2022-0 Yes 12.5mg Take 12.5 [facility] 12.5 mg 1-21 mg by ity of tablet 18:31: mouth in the Medical morning Branch and 12.5 mg in the evening. Take with meals. clopidogreL 2022-0 Yes 75mg Take 75 mg [facility] 75 mg 1-21 by mouth ity of tablet 18:31: in the [place] morning. Medical Branch ondansetron 2022-0 Yes 4mg Take 4 mg U nivers 4 mg tablet 1-21 by mouth ity of 18:31: every 4 [place] (four) Medical hours. Branch Cholecalcif 2022-0 Yes 1{tbl} Take 1 Un leatha jane, 1-21 tablet by ity of Vitamin D3, 18:31: [place]. [place] 125 [place]cg 02 Medical (5,000 Branch unit) tablet tamsulosin 2022-0 Yes Take by Univ ers 0.4 mg 24 1-21 mouth ity of hr capsule 18:31: daily. [place] Medical Branch finasteride 2022-0 Yes 5mg Take 5 mg U nivers 5 mg tablet 1-21 by mouth ity of 18:31: in the morning. Medical Branch foLIC acid 2022-0 Yes 1mg Take 1 mg Un leatha 1 mg tablet 1-21 by mouth ity of 18:31: in the [place] morning. Medical Branch hydrALAZINE 2022-0 Yes 100mg Take 100 U nivers 100 mg 1-21 mg by ity of tablet 18:31: mouth in the Medical morning Branch and 100 mg at noon and 100 mg in the evening. acetaminoph 2022-0 Yes 650mg Take 650 U nivers en 325 mg 1-21 mg by ity of Cap 18:31: mouth every 6 Medical (six) Branch hours as needed for Pain (scale 1-3). furosemide 2022-0 Yes 40mg Take 40 mg U nivers 40 mg 1-21 by mouth ity of tablet 18:31: in the [place] morning. Medical Branch docusate 2022-0 Yes 100mg Take 100 Univ ers 100 mg 1-21 mg by ity of capsule 18:31: mouth in [place] the Medical morning. Branch atorvastati 2022-0 Yes 40mg Take 40 mg [facility] n 40 mg 1-21 by mouth ity of tablet 18:31: at [place] [address] bedtime. Medical Branch amLODIPine 2022-0 Yes 10mg Take 10 mg U nivers 10 mg 1-21 by mouth ity of tablet 18:31: in the morning. Medical Branch aspirin 81 2022-0 Yes 81mg Take 81 mg U nivers mg chewable 1-21 by mouth ity of tablet 18:31: in the [place] morning. Medical Branch calcitrioL 2022-0 Yes .25ug Take 0.25 U nivers 0.25 mcg 1-21 mcg by ity of capsule 18:31: mouth every Medical other day. Branch carvediloL 2022-0 Yes 12.5mg Take 12.5 [facility] 12.5 mg 1-21 mg by ity of tablet 18:31: mouth in [place] 02 the Medical morning Branch and 12.5 mg in the evening. Take with meals. clopidogreL 2023-0 Yes 75mg Take 75 mg [facility] 75 mg 1-21 by mouth ity of tablet 18:31: in the [place] morning. Medical Branch ondansetron 2022-0 Yes 4mg Take 4 mg U nivers 4 mg tablet 1-21 by mouth ity of 18:31: every 4 [place] (four) Medical hours. Branch Cholecalcif 3-0 Yes 1{tbl} Take 1 Un leatha jane, 1-21 tablet by ity of Vitamin D3, 18:31: mouth. [facility] 125 mcg 02 Medical (5,000 Branch unit) tablet tamsulosin 2022-0 Yes Take by Univ ers 0.4 mg 24 1-21 mouth ity of hr capsule 18:31: daily. Medical Branch finasteride 2022-0 Yes 5mg Take 5 mg U nivers 5 mg tablet 1-21 by mouth ity of 18:31: in the [place] morning. Medical Branch foLIC acid 2022-0 Yes 1mg Take 1 mg Un leatha 1 mg tablet 1-21 by mouth ity of 18:31: in the [place] morning. Medical Branch hydrALAZINE 2022-0 Yes 100mg Take 100 U nivers 100 mg 1-21 mg by ity of tablet 18:31: mouth in the Medical morning Branch and 100 mg at noon and 100 mg in the evening. acetaminoph 2022-0 Yes 650mg Take 650 U nivers en 325 mg 1-21 mg by ity of Cap 18:31: mouth [place] every 6 Medical (six) Branch hours as needed for Pain (scale 1-3). furosemide 2022-0 Yes 40mg Take 40 mg U nivers 40 mg 1-21 by mouth ity of tablet 18:31: in the [place] morning. Medical Branch docusate 2022-0 Yes 100mg Take 100 Univ ers 100 mg 1-21 mg by ity of capsule 18:31: mouth in [place] the Medical morning. Branch atorvastati 2022-0 Yes 40mg Take 40 mg [facility] n 40 mg 1-21 by mouth ity of tablet 18:31: at [place] [address] bedtime. Medical Branch amLODIPine 3-0 Yes 10mg Take 10 mg U nivers 10 mg 1-21 by mouth ity of tablet 18:31: in the [place] morning. Medical Branch aspirin 81 2023-0 Yes 81mg Take 81 mg U nivers mg chewable 1-21 by mouth ity of tablet 18:31: in the [place] morning. Medical Branch calcitrioL 2022-0 Yes .25ug Take 0.25 U nivers 0.25 mcg 1-21 mcg by ity of capsule 18:31: mouth every Medical other day. Branch carvediloL 2022-0 Yes 12.5mg Take 12.5 Univers 12.5 mg 1-21 mg by ity of tablet 18:31: mouth in the Medical morning Branch and 12.5 mg in the evening. Take with meals. clopidogreL 2022-0 Yes 75mg Take 75 mg [facility] 75 mg 1-21 by mouth ity of tablet 18:31: in the [place] morning. Medical Branch ondansetron 2022-0 Yes 4mg Take 4 mg U nivers 4 mg tablet 1-21 by mouth ity of 18:31: every 4 [place] [address] (four) Medical hours. Branch Cholecalcif 2022-0 Yes 1{tbl} Take 1 Un leatha jane, 1-21 tablet by ity of Vitamin D3, 18:31: [place]. [place] 125 mcg 02 Medical (5,000 Branch unit) tablet tamsulosin 2022-0 Yes Take by Univ ers 0.4 mg 24 1-21 mouth ity of hr capsule 18:31: daily. Medical Branch finasteride 2022-0 Yes 5mg Take 5 mg U nivers 5 mg tablet 1-21 by mouth ity of 18:31: in the [place] morning. Medical Branch foLIC acid 2022-0 Yes 1mg Take 1 mg Un leatha 1 mg tablet 1-21 by mouth ity of 18:31: in the [place] morning. Medical Branch hydrALAZINE 2022-0 Yes 100mg Take 100 U nivers 100 mg 1-21 mg by ity of tablet 18:31: mouth in [place] the Medical morning Branch and 100 mg at noon and 100 mg in the evening. acetaminoph 2022-0 Yes 650mg Take 650 U nivers en 325 mg 1-21 mg by ity of Cap 18:31: mouth [place] [address] every 6 Medical (six) Branch hours as needed for Pain (scale 1-3). furosemide 2022-0 Yes 40mg Take 40 mg U nivers 40 mg 1-21 by mouth ity of tablet 18:31: in the morning. Medical Branch docusate 3-0 Yes 100mg Take 100 Univ ers 100 mg 1-21 mg by ity of capsule 18:31: mouth in the Medical morning. Branch ondansetron 3-0 Yes 4mg Take 4 mg U nivers 4 mg tablet 1-21 by mouth ity of 18:31: every 4 (four) Medical hours. Branch tamsulosin 3-0 Yes Take by Univ ers 0.4 mg 24 1-21 mouth ity of hr capsule 18:31: daily. Medical Branch ondansetron 3-0 Yes 4mg Take 4 mg U nivers 4 mg tablet 1-21 by mouth ity of 18:31: every 4 [place] [address] (four) Medical hours. Branch tamsulosin 3-0 Yes Take by Univ ers 0.4 mg 24 1-21 mouth ity of hr capsule 18:31: daily. Medical Branch ondansetron 3-0 Yes 4mg Take 4 mg U nivers 4 mg tablet 1-21 by mouth ity of 18:31: every 4 [place] [address] (four) Medical hours. Branch tamsulosin 3-0 Yes Take by Univ ers 0.4 mg 24 1-21 mouth ity of hr capsule 18:31: daily. Medical Branch ondansetron 3-0 Yes 4mg Take 4 mg U nivers 4 mg tablet 1-21 by mouth ity of 18:31: every 4 (four) Medical hours. Branch tamsulosin 3-0 Yes Take by Univ ers 0.4 mg 24 1-21 mouth ity of hr capsule 18:31: daily. Medical Branch ondansetron 3-0 Yes 4mg Take 4 mg U nivers 4 mg tablet 1-21 by mouth ity of 18:31: every 4 [place] [address] (four) Medical hours. Branch tamsulosin 3-0 Yes Take by Univ ers 0.4 mg 24 1-21 mouth ity of hr capsule 18:31: daily. Medical Branch ondansetron 3-0 Yes 4mg Take 4 mg U nivers 4 mg tablet 1-21 by mouth ity of 18:31: every 4 [place] [address] (four) Medical hours. Branch tamsulosin 2023-0 Yes Take by Univ ers 0.4 mg 24 1-21 mouth ity of hr capsule 18:31: daily. [place] Medical Branch ondansetron 3-0 Yes 4mg Take 4 mg U nivers 4 mg tablet 1-21 by mouth ity of 18:31: every 4 [place] 02 (four) Medical hours. Branch tamsulosin 3-0 Yes Take by Univ ers 0.4 mg 24 1-21 mouth ity of hr capsule 18:31: daily. [place] Medical Branch ondansetron 3-0 Yes 4mg Take 4 mg U nivers 4 mg tablet 1-21 by mouth ity of 18:31: every 4 [place] (four) Medical hours. Branch tamsulosin 3-0 Yes Take by Univ ers 0.4 mg 24 1-21 mouth ity of hr capsule 18:31: daily. [place] Medical Branch ondansetron 3-0 Yes 4mg Take 4 mg U nivers 4 mg tablet 1-21 by mouth ity of 18:31: every 4 [place] [address] (four) Medical hours. Branch tamsulosin 3-0 Yes Take by Univ ers 0.4 mg 24 1-21 mouth ity of hr capsule 18:31: daily. [place] [address] Medical Branch ondansetron 3-0 Yes 4mg Take 4 mg U nivers 4 mg tablet 1-21 by mouth ity of 18:31: every 4 [place] (four) Medical hours. Branch tamsulosin 3-0 Yes Take by Univ ers 0.4 mg 24 1-21 mouth ity of hr capsule 18:31: daily. [place] [address] Medical Branch ondansetron 3-0 Yes 4mg Take 4 mg U nivers 4 mg tablet 1-21 by mouth ity of 18:31: every 4 [place] 02 (four) Medical hours. Branch tamsulosin 3-0 Yes Take by Univ ers 0.4 mg 24 1-21 mouth ity of hr capsule 18:31: daily. [place] [address] Medical Branch ondansetron 3-0 Yes 4mg Take 4 mg U nivers 4 mg tablet 1-21 by mouth ity of 18:31: every 4 [place] 02 (four) Medical hours. Branch tamsulosin 3-0 Yes Take by Univ ers 0.4 mg 24 1-21 mouth ity of hr capsule 18:31: daily. [place] [address] Medical Branch ondansetron 2023-0 Yes 4mg Take 4 mg U nivers 4 mg tablet 1-21 by mouth ity of 18:31: every 4 [place] [address] (four) Medical hours. Branch tamsulosin 2023-0 Yes Take by Univ ers 0.4 mg 24 1-21 mouth ity of hr capsule 18:31: daily. [place] [address] Medical Branch ondansetron 2023-0 Yes 4mg Take 4 mg U nivers 4 mg tablet 1-21 by mouth ity of 18:31: every 4 [place] [address] (four) Medical hours. Branch tamsulosin 3-0 Yes Take by Univ ers 0.4 mg 24 1-21 mouth ity of hr capsule 18:31: daily. [place] [address] Medical Branch ondansetron 3-0 Yes 4mg Take 4 mg U nivers 4 mg tablet 1-21 by mouth ity of 18:31: every 4 [place] [address] (four) Medical hours. Branch tamsulosin 3-0 Yes Take by Univ ers 0.4 mg 24 1-21 mouth ity of hr capsule 18:31: daily. [place] [address] Medical Branch ondansetron 3-0 Yes 4mg Take 4 mg U nivers 4 mg tablet 1-21 by mouth ity of 18:31: every 4 [place] [address] (four) Medical hours. Branch tamsulosin 3-0 Yes Take by Univ ers 0.4 mg 24 1-21 mouth ity of hr capsule 18:31: daily. [place] [address] Medical Branch ondansetron 2023-0 Yes 4mg Take 4 mg U nivers 4 mg tablet 1-21 by mouth ity of 18:31: every 4 [place] [address] (four) Medical hours. Branch tamsulosin 2023-0 Yes Take by Univ ers 0.4 mg 24 1-21 mouth ity of hr capsule 18:31: daily. [place] [address] Medical Branch ondansetron 2023-0 Yes 4mg Take 4 mg U nivers 4 mg tablet 1-21 by mouth ity of 18:31: every 4 [place] [address] (four) Medical hours. Branch tamsulosin 2023-0 Yes Take by Univ ers 0.4 mg 24 1-21 mouth ity of hr capsule 18:31: daily. [place] [address] Medical Branch ondansetron 2023-0 Yes 4mg Take 4 mg U nivers 4 mg tablet 1-21 by mouth ity of 18:31: every 4 [place] [address] (four) Medical hours. Branch tamsulosin 2023-0 Yes Take by Univ ers 0.4 mg 24 1-21 mouth ity of hr capsule 18:31: daily. [place] [address] Medical Branch ondansetron 2023-0 Yes 4mg Take 4 mg U nivers 4 mg tablet 1-21 by mouth ity of 18:31: every 4 [place] [address] (four) Medical hours. Branch tamsulosin 3-0 Yes Take by Univ ers 0.4 mg 24 1-21 mouth ity of hr capsule 18:31: daily. [place] [address] Medical Branch ondansetron 3-0 Yes 4mg Take 4 mg U nivers 4 mg tablet 1-21 by mouth ity of 18:31: every 4 [place] [address] (four) Medical hours. Branch tamsulosin 3-0 Yes Take by Univ ers 0.4 mg 24 1-21 mouth ity of hr capsule 18:31: daily. [place] [address] Medical Branch ondansetron 3-0 Yes 4mg Take 4 mg U nivers 4 mg tablet 1-21 by mouth ity of 18:31: every 4 [place] [address] (four) Medical hours. Branch tamsulosin 3-0 Yes Take by Univ ers 0.4 mg 24 1-21 mouth ity of hr capsule 18:31: daily. [place] [address] Medical Branch furosemide 2023-0 Yes [id number] 80mg Take 1 Univers 80 mg 1-21 tablet by ity of tablet 00:00: mouth in [place] [address] the Medical morning Branch and 1 tablet in the evening. furosemide 2023-0 Yes [id number] 80mg Take 1 Univers 80 mg 1-21 tablet by ity of tablet 00:00: mouth in [place] [address] the Medical morning Branch and 1 tablet in the evening. furosemide 2023-0 Yes [id number] 80mg Take 1 Univers 80 mg 1-21 tablet by ity of tablet 00:00: mouth in [place] [address] the Medical morning Branch and 1 tablet in the evening. furosemide 2023-0 Yes [id number] 80mg Take 1 Univers 80 mg 1-21 tablet by ity of tablet 00:00: mouth in [place] [address] the Medical morning Branch and 1 tablet in the evening. furosemide 2023-0 Yes [id number] 80mg Take 1 Univers 80 mg 1-21 tablet by ity of tablet 00:00: mouth in [place] 00 the Medical morning Branch and 1 tablet in the evening. furosemide 2023-0 Yes [id number] 80mg Take 1 Univers 80 mg 1-21 tablet by ity of tablet 00:00: mouth in [place] 00 the Medical morning Branch and 1 tablet in the evening. furosemide 2023-0 Yes [id number] 80mg Take 1 [facility] 80 mg 1-21 tablet by ity of tablet 00:00: mouth in [place] 00 the Medical morning Branch and 1 tablet in the evening. furosemide 2023-0 Yes [id number] 80mg Take 1 [facility] 80 mg 1-21 tablet by ity of tablet 00:00: mouth in [place] 00 the Medical morning Branch and 1 tablet in the evening. furosemide 2023-0 Yes [id number] 80mg Take 1 Univers 80 mg 1-21 tablet by ity of tablet 00:00: mouth in [place] [address] the Medical morning Branch and 1 tablet in the evening. furosemide 2023-0 Yes [id number] 80mg Take 1 Univers 80 mg 1-21 tablet by ity of tablet 00:00: mouth in [place] [address] the Medical morning Branch and 1 tablet in the evening. furosemide 2023-0 Yes [id number] 80mg Take 1 [facility] 80 mg 1-21 tablet by ity of tablet 00:00: mouth in [place] 00 the Medical morning Branch and 1 tablet in the evening. furosemide 2023-0 Yes [id number] 80mg Take 1 Univers 80 mg 1-21 tablet by ity of tablet 00:00: mouth in [place] [address] the Medical morning Branch and 1 tablet in the evening. furosemide 2023-0 Yes [id number] 80mg Take 1 Univers 80 mg 1-21 tablet by ity of tablet 00:00: mouth in [place] 00 the Medical morning Branch and 1 tablet in the evening. furosemide 2023-0 Yes [id number] 80mg Take 1 Univers 80 mg 1-21 tablet by ity of tablet 00:00: mouth in [place] 00 the Medical morning Branch and 1 tablet in the evening. furosemide 2023-0 Yes [id number] 80mg Take 1 Univers 80 mg 1-21 tablet by ity of tablet 00:00: mouth in [place] [address] the Medical morning Branch and 1 tablet in the evening. furosemide 2023-0 Yes [id number] 80mg Take 1 Univers 80 mg 1-21 tablet by ity of tablet 00:00: mouth in [place] 00 the Medical morning Branch and 1 tablet in the evening. furosemide 2023-0 Yes [id number] 80mg Take 1 Univers 80 mg 1-21 tablet by ity of tablet 00:00: mouth in [place] 00 the Medical morning Branch and 1 tablet in the evening. furosemide 2023-0 Yes [id number] 80mg Take 1 Univers 80 mg 1-21 tablet by ity of tablet 00:00: mouth in [place] 00 the Medical morning Branch and 1 tablet in the evening. furosemide 2023-0 Yes [id number] 80mg Take 1 Univers 80 mg 1-21 tablet by ity of tablet 00:00: mouth in [place] 00 the Medical morning Branch and 1 tablet in the evening. furosemide 2023-0 Yes [id number] 80mg Take 1 Univers 80 mg 1-21 tablet by ity of tablet 00:00: mouth in [place] 00 the Medical morning Branch and 1 tablet in the evening. furosemide 2023-0 Yes [id number] 80mg Take 1 Univers 80 mg 1-21 tablet by ity of tablet 00:00: mouth in [place] [address] the Medical morning Branch and 1 tablet in the evening. furosemide 2023-0 Yes [id number] 80mg Take 1 Univers 80 mg 1-21 tablet by ity of tablet 00:00: mouth in [place] 00 the Medical morning Branch and 1 tablet in the evening. furosemide 2023-0 Yes [id number] 80mg Take 1 Univers 80 mg 1-21 tablet by ity of tablet 00:00: mouth in [place] [address] the Medical morning Branch and 1 tablet in the evening. furosemide 2023-0 Yes [id number] 80mg Take 1 Univers 80 mg 1-21 tablet by ity of tablet 00:00: mouth in [place] 00 the Medical morning Branch and 1 tablet in the evening. furosemide 2023-0 Yes [id number] 80mg Take 1 [facility] 80 mg 1-21 tablet by ity of tablet 00:00: mouth in [place] 00 the Medical morning Branch and 1 tablet in the evening. furosemide 2023-0 Yes [id number] 80mg Take 1 Univers 80 mg 1-21 tablet by ity of tablet 00:00: mouth in [place] [address] the Medical morning Branch and 1 tablet in the evening. furosemide 2023-0 Yes [id number] 80mg Take 1 Univers 80 mg 1-21 tablet by ity of tablet 00:00: mouth in [address] and 1 tablet in the evening. furosemide 2023-0 Yes [id number] 80mg Take 1 Univers 80 mg 1-21 tablet by ity of tablet 00:00: mouth in [address] and 1 tablet in the evening. furosemide 2023-0 Yes [id number] 80mg Take 1 Univers 80 mg 1-21 tablet by ity of tablet 00:00: mouth in [address] and 1 tablet in the evening. furosemide 2023-0 Yes [id number] 80mg Take 1 Univers 80 mg 1-21 tablet by ity of tablet 00:00: mouth in [address] and 1 tablet in the evening. furosemide 2023-0 Yes [id number] 80mg Take 1 Univers 80 mg 1-21 tablet by ity of tablet 00:00: mouth in [address] and 1 tablet in the evening. furosemide 2023-0 Yes [id number] 80mg Take 1 Univers 80 mg 1-21 tablet by ity of tablet 00:00: mouth in [address] and 1 tablet in the evening. furosemide 2023-0 Yes [id number] 80mg Take 1 Univers 80 mg 1-21 tablet by ity of tablet 00:00: mouth in [address] and 1 tablet in the evening. furosemide 2023-0 Yes [id number] 80mg Take 1 Univers 80 mg 1-21 tablet by ity of tablet 00:00: mouth in [address] and 1 tablet in the evening. furosemide 2023-0 Yes [id number] 80mg Take 1 Univers 80 mg 1-21 tablet by ity of tablet 00:00: mouth in [address] and 1 tablet in the evening. amLODIPine 2022-0 Yes 10mg 10 mg, Unive rs (NORVASC) 1-20 Oral, QPM, ity of tablet 10 23:00: First dose [place] mg 00 (after Medical last Branch modificati on) on Tue09/24/22 at 1700, Until Discontinu ed, Routine amLODIPine 3-0 3- No 5mg 5 mg, Unive rs (NORVASC) 1-20 01-20 Oral, QPM, ity of tablet 5 mg 06:30: 15:52 First dose [place] 00 :10 on Tue09/24/22 at Branch 0030, Until Discontinu ed, Routine lactulose Yes 30mL 30 mL, Univer s (CEPHULAC) 09-23 Oral, ity of solution 30 19:30: DAILY, [place] mL 00 First dose Medical on Anni Gilbert 09/23/22 at 1330, Until Discontinu ed, Routine iron 2022- No 300mg 300 mg, IV Unive rs sucrose 09-23 Infusion, ity of (VENOFER) 18:00: 17:59 Q72H, [place] 300 mg in 00 :00 Administer Medi vick NaCl 0.9% over 2.5 Branch (NS) 250 mL Hours, infusion First dose on Anni 09/23/22 at 1200, For 3 doses furosemide No 40mg 40 mg, IV U nivers (LASIX) 09-23 Push, Q6H, ity o f injection 18:00: 18:24 12 doses, [place] 40 mg 00 :52 First dose Medical (after Branch last modificati on) on Anni 09/23/22 at 1200, Last dose on Tue09/26/22 at 0600, SAL atorvastati Yes 40mg 40 mg, Univ ers n (LIPITOR) 09-23 Oral, QHS, it y of tablet 40 03:00: First dose [place] mg 00 on Tue09/22/22 at Branch 2100, Until Discontinu ed, Routine epoetin 2022- No [id number] 10,000 Unive rs neelam-epbx 09-23 Units, ity of (RETACRIT) 02:00: 02:48 Subcutaneo [place] injection 00 :00 us, ONCE Medica l 10,000 AT 2000, 1 Branch Units dose, On Tue09/22/22 at 2000, Routine
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 medication : JENNIFER GARCIA A sodium Yes 650mg 650 mg, Univers bicarbonate 09-22 Oral, TID, it y of (ANTACID 20:00: First dose [place] (SODIUM 00 on Tue Medical BICARBONATE 09/22/22 at Br anch )) tablet 1400, 650 mg Until Discontinu ed, Routine heparin Yes 5000U 5,000 Univers (porcine) 1-18 Units, ity of injection 20:00: Subcutaneo [place] 5,000 Units 00 us, Q8H, [facility] First dose Branch on Tue09/22/22 at 1400, Until Discontinu ed, Routine furosemide 0 2022- No 40mg 40 mg, IV U nivers (LASIX) 18 01-19 Push, Q8H, ity o f injection 20:00: 17:50 15 doses, [place] 40 mg 00 :30 First dose Medical (after Branch last modificati on) on Tue09/22/22 at 1400, Last dose on Tue09/27/22 at 0600, SAL tamsulosin 0 Yes .4mg 0.4 mg, Univ ers (FLOMAX) 18 Oral, ity of capsule 0.4 15:00: DAILY, [place] mg 00 First dose Medical on Tue09/22/22 at 0900, Until Discontinu ed, Routine foLIC acid Yes 1mg 1 mg, Univer s (FOLATE) 18 Oral, ity of tablet 1 mg 15:00: DAILY, [place] 00 First dose Medical on Tue Branch 09/22/22 at 0900, Until Discontinu ed, Routine finasteride Yes 5mg 5 mg, Unive rs (PROSCAR) 18 Oral, ity of tablet 5 mg 15:00: DAILY, [place] 00 First dose Medical on Tue Branch 09/22/22 at 0900, Until Discontinu ed, Routine docusate 0 Yes 100mg 100 mg, Unive rs (COLACE) 18 Oral, ity of capsule 100 15:00: DAILY, [place] mg 00 First dose Medical on Tue Branch 09/22/22 at 0900, Until Discontinu ed, Routine clopidogreL 0 Yes 75mg 75 mg, Univ ers (PLAVIX) 75 18 Oral, ity of mg tablet 15:00: DAILY, [place] 75 mg 00 First dose Medical on Tue Branch 09/22/22 at 0900, Until Discontinu ed, Routine cholecalcif 0 Yes 5000U 5,000 Univ ers jane 1-18 Units, ity of (vitamin 15:00: Oral, [place] D3) tablet 00 DAILY, Medical 5,000 Units First dose Br anch on Tue09/22/22 at 0900, Until Discontinu ed calcitrioL 0 Yes .25ug 0.25 mcg, U nivers (ROCALTROL) 18 Oral, Q ity o f capsule 15:00: OTHERDAY, [place] 0.25 mcg 00 First dose Medic al on Tue09/22/22 at 0900, Until Discontinu ed, Routine aspirin 0 Yes 81mg 81 mg, Univers chewable 18 Oral, ity of tablet 81 15:00: DAILY, [place] mg 00 First dose Medical on Tue Branch 09/22/22 at 0900, Until Discontinu ed, Routine cefTRIAXone 0 2022- No 1000mg 1,000 mg, Univers (ROCEPHIN) 09-2221 IV ity of 1,000 mg in 14:15: 16:58 Piggyback, [place] NaCl 0.9% 00 :48 Q24H ABX, Medic al (NS) 50 mL 7 doses, Branc h MINI-BAG First dose on Tue09/22/22 at 0815, Last dose on Tue09/28/22 at 0815, Administer over 30 Minutes, 50 mL
Reas on for Anti-Infec tive: Empiric Therapy for Suspected Infection< br>Empiric Therapy Site: Urine
D uration of therapy: 5 days hydrALAZINE Yes 100mg 100 mg, Un leatha (APRESOLINE 18 Oral, TID, it y of ) tablet 14:00: First dose [place] 100 mg 00 on Tue Medical 09/22/22 at Branch 0800, Until Discontinu ed, Routine carvediloL 0 Yes 12.5mg 12.5 mg, U nivers (COREG) 18 Oral, BID ity of tablet 12.5 14:00: MEALS, [place] mg 00 First dose Medical on Tue Branch 09/22/22 at 0800, Until Discontinu ed, Routine Sliding 0 Yes Subcutaneo Univ ers Scale -18 us, AC+HS, ity of Insulin-Reg 13:30: First dose [place] ular + Fsbg 00 on Tue Medica l Testing 09/22/22 at Branch 0730, Until Discontinu ed, Routine glucagon Yes 1mg 1 mg, Univers (GLUCAGEN 09-22 Intramuscu ity of DIAGNOSTIC 12:25: lar, PRN, [place] KIT) 51 Starting Medical injection 1 on Tue Branch mg 09/22/22 at 0625, Until Discontinu ed, SAL, Blood Glucose < or = 70 mg/dL and patient is unable to swallow or has mental changes. dextrose 50 Yes 25mL 25 mL, Univ ers % in water 09-22 Slow IV ity of (D50W) 12:25: Push, PRN, [place] injection 51 Starting Medica l 25 mL on Tue Branch 09/22/22 at 0625, Until Discontinu ed, SAL, Blood Glucose < or = 70 mg/dL and patient is unable to swallow or has mental status changes. levothyroxi Yes 25ug 25 mcg, Uni vers ne 09-22 Oral, ity of (SYNTHROID) 12:00: QAM-0600, [place] tablet 25 00 First dose Medi vick mcg on Tue Branch 09/22/22 at 0600, Until Discontinu ed, Routine enoxaparin 2022- No 40mg 40 mg, Univ ers (LOVENOX) 09-21 Subcutaneo ity of injection 23:00: 13:13 us, DAILY, [place] 40 mg 00 :00 First dose Medical on Tue09/21/22 at 1700, Until Discontinu ed, Routine HYDROcodone Yes 1{tbl} 1 tablet, Univers -acetaminop 09-21 Oral, ity of hen (NORCO) 22:02: Q6HPRN, [place] as 10-325 mg 27 Starting Medica l tablet 1 on Tue tablet 09/21/22 at 1602, Until Discontinu ed, Routine, Pain (scale 7-10) HYDROcodone 0 202- No 1{tbl} 1 tablet, [facility] -acetaminop 09-21 Oral, ity of hen (NORCO 22:02: 22:01 Q6HPRN, [place] 5) 5-325 mg 25 :25 Starting Medi vick tablet 1 on Tue tablet 09/21/22 at 1602, Until [place] 09/23/22 at 1601, Routine, Pain (scale 4-6) acetaminoph Yes 650mg 650 mg, Un leatha en 09-21 Oral, ity of (TYLENOL) 22:02: Q6HPRN, [place] tablet 650 24 Starting Medic al mg on Tue Branch 09/21/22 at 1602, Until Discontinu ed, Routine, Pain (scale 1-3) glimepiride 2022- No 2mg Take 2 mg [facility] 2 mg tablet 09-21 by mouth ity of 21:18: 00:00 daily with [place] 11 :00 breakfast. Medical Branch insulin NPH 2022- No 10U inject 10 [facility] and regular 09-21 Units ity of human 70-30 21:18: 00:00 under the [place] 100 unit/mL 11 :00 skin 2 Medica l (70-30) (two) Branch injection times daily before breakfast and dinner. hydrALAZINE 2022- No 50mg Take 50 mg [facility] 50 mg 09-21 by mouth ity of tablet 21:18: 00:00 every 8 [place] 11 :00 (eight) Medical hours. Branch losartan 2022- No 100mg Take 100 Uni vers 100 mg 09-21 mg by ity of tablet 21:18: 00:00 mouth [place] 11 :00 daily. Medical Branch insulin 2022- No Sliding Univer s regular 09-21 Scale ity of human 100 21:18: 00:00 [place] unit/mL 11 :00 Medical injection Branch SODIUM 2022- No 650mg Take 650 Unive rs BICARBONATE 09-21 mg by ity of ORAL 21:18: 00:00 mouth 2 [place] 11 :00 (two) Medical times Branch daily. amLODIPine 2022- No 10mg Take 10 mg [facility] 10 mg 09-21 by mouth ity of tablet 21:18: 00:00 in the [place] 11 :00 morning. Medical Branch aspirin 81 2022- No 81mg Take 81 mg [facility] mg chewable 09-21 by mouth ity of tablet 21:18: 00:00 in the [place] 11 :00 morning. Medical Branch atorvastati 2022- No 40mg Take 40 mg Univers n 40 mg 09-21 by mouth ity of tablet 21:18: 00:00 at [place] 11 :00 bedtime. Medical Branch calcitrioL 2022- No .25ug Take 0.25 Univers 0.25 mcg 09-21 mcg by ity of capsule 21:18: 00:00 mouth [place] 11 :00 every Medical other day. Branch carvediloL 2022- No 12.5mg Take 12.5 [facility] 12.5 mg 09-21 mg by ity of tablet 21:18: 00:00 mouth in [place] 11 :00 the Medical morning Branch and 12.5 mg in the evening. Take with meals. clopidogreL 2022- No 75mg Take 75 mg [facility] 75 mg 09-21 by mouth ity of tablet 21:18: 00:00 in the [place] 11 :00 morning. Medical Branch ondansetron 2022- No 4mg Take 4 mg [facility] 4 mg tablet 09-21 by mouth ity of 21:18: 00:00 every 4 [place] 11 :00 (four) Medical hours as Branch needed for Nausea and Vomiting (N/V). tamsulosin 2022- No Take by Uni vers 0.4 mg 24 09-21 mouth at ity o f hr capsule 21:18: 00:00 [place]time. [place] 11 :00 Medical Branch Cholecalcif 2022- No Take by Un leatha jane, 09-21 mouth. ity of Vitamin D3, 21:18: 00:00 [place] 125 mcg 11 :00 Medical (5,000 Branch unit) tablet insulin 2022- No inject [facility] regular 09-21 under the ity of human Soln 21:18: 00:00 skin [place] injection 11 :00 before Medical meals and Branch at bedtime. furosemide 2022- No 40mg 40 mg, IV U nivers (LASIX) 09-21 Push, ity of injection 18:30: 18:38 ONCE, 1 [place] 40 mg 00 :00 dose, On Medical Tue Branch 09/21/22 at 1230, SAL HYDROcodone 2022- No 1{tbl} 1 tablet, [facility] -acetaminop 09-21 Oral, ity of hen (NORCO 18:00: 17:47 ONCE, 1 [place] 5) 5-325 mg 00 :00 dose, On Medi vick tablet 1 Tue Branch tablet 09/21/22 at 1200, SAL nystatin 2022-0 Yes [id number] Apply to U nivers 100,000 1-13 area(s) 2 ity of unit/gram 00:00: (two) [place] cream 00 times Medical daily. Branch Apply to genital area twice daily after cleaning nystatin 2022-0 Yes [id number] Apply to U nivers 100,000 1-13 area(s) 2 ity of unit/gram 00:00: (two) [place] cream 00 times Medical daily. Branch Apply to genital area twice daily after cleaning nystatin 2022-0 Yes [id number] Apply to U nivers 100,000 1-13 area(s) 2 ity of unit/gram 00:00: (two) [place] cream 00 times Medical daily. Branch Apply to genital area twice daily after cleaning nystatin 2022-0 Yes [id number] Apply to U nivers 100,000 1-13 area(s) 2 ity of unit/gram 00:00: (two) [place] cream 00 times Medical daily. Branch Apply to genital area twice daily after cleaning nystatin 2022-0 Yes [id number] Apply to U nivers 100,000 1-13 area(s) 2 ity of unit/gram 00:00: (two) [place] cream 00 times Medical daily. Branch Apply to genital area twice daily after cleaning nystatin 2022-0 Yes [id number] Apply to U nivers 100,000 1-13 area(s) 2 ity of unit/gram 00:00: (two) [place] cream 00 times Medical daily. Branch Apply to genital area twice daily after cleaning nystatin 2022-0 Yes [id number] Apply to U nivers 100,000 1-13 area(s) 2 ity of unit/gram 00:00: (two) [place] cream 00 times Medical daily. Branch Apply to genital area twice daily after cleaning nystatin 2022-0 Yes [id number] Apply to U nivers 100,000 1-13 area(s) 2 ity of unit/gram 00:00: (two) [place] cream 00 times Medical daily. Branch Apply to genital area twice daily after cleaning nystatin 2023-0 Yes [id number] Apply to U nivers 100,000 1-13 area(s) 2 ity of unit/gram 00:00: (two) [place] cream 00 times Medical daily. Branch Apply to genital area twice daily after cleaning nystatin 2023-0 Yes [id number] Apply to U nivers 100,000 1-13 area(s) 2 ity of unit/gram 00:00: (two) [place] cream 00 times Medical daily. Branch Apply to genital area twice daily after cleaning nystatin 3-0 Yes [id number] Apply to U nivers 100,000 1-13 area(s) 2 ity of unit/gram 00:00: (two) [place] cream 00 times Medical daily. Branch Apply to genital area twice daily after cleaning nystatin 3-0 Yes [id number] Apply to U nivers 100,000 1-13 area(s) 2 ity of unit/gram 00:00: (two) [place] cream 00 times Medical daily. Branch Apply to genital area twice daily after cleaning nystatin 3-0 Yes [id number] Apply to U nivers 100,000 1-13 area(s) 2 ity of unit/gram 00:00: (two) [place] cream 00 times Medical daily. Branch Apply to genital area twice daily after cleaning nystatin 3-0 Yes [id number] Apply to U nivers 100,000 1-13 area(s) 2 ity of unit/gram 00:00: (two) [place] cream 00 times Medical daily. Branch Apply to genital area twice daily after cleaning nystatin 3-0 Yes [id number] Apply to U nivers 100,000 1-13 area(s) 2 ity of unit/gram 00:00: (two) [place] cream 00 times Medical daily. Branch Apply to genital area twice daily after cleaning nystatin 2023-0 Yes [id number] Apply to U nivers 100,000 1-13 area(s) 2 ity of unit/gram 00:00: (two) [place] cream 00 times Medical daily. Branch Apply to genital area twice daily after cleaning nystatin 2023-0 Yes [id number] Apply to U nivers 100,000 1-13 area(s) 2 ity of unit/gram 00:00: (two) [place] cream 00 times Medical daily. Branch Apply to genital area twice daily after cleaning nystatin 2023-0 Yes [id number] Apply to U nivers 100,000 1-13 area(s) 2 ity of unit/gram 00:00: (two) [place] cream 00 times Medical daily. Branch Apply to genital area twice daily after cleaning nystatin 2023-0 Yes [id number] Apply to U nivers 100,000 1-13 area(s) 2 ity of unit/gram 00:00: (two) [place] cream 00 times Medical daily. Branch Apply to genital area twice daily after cleaning nystatin 2023-0 Yes [id number] Apply to U nivers 100,000 1-13 area(s) 2 ity of unit/gram 00:00: (two) [place] cream 00 times Medical daily. Branch Apply to genital area twice daily after cleaning nystatin 2023-0 Yes [id number] Apply to U nivers 100,000 1-13 area(s) 2 ity of unit/gram 00:00: (two) [place] cream 00 times Medical daily. Branch Apply to genital area twice daily after cleaning nystatin 3-0 Yes [id number] Apply to U nivers 100,000 1-13 area(s) 2 ity of unit/gram 00:00: (two) [place] cream 00 times Medical daily. Branch Apply to genital area twice daily after cleaning nystatin 2023-0 Yes [id number] Apply to U nivers 100,000 1-13 area(s) 2 ity of unit/gram 00:00: (two) [place] cream 00 times Medical daily. Branch Apply to genital area twice daily after cleaning nystatin 2023-0 Yes [id number] Apply to U nivers 100,000 1-13 area(s) 2 ity of unit/gram 00:00: (two) [place] cream 00 times Medical daily. Branch Apply to genital area twice daily after cleaning nystatin 2023-0 Yes [id number] Apply to U nivers 100,000 1-13 area(s) 2 ity of unit/gram 00:00: (two) [place] cream 00 times Medical daily. Branch Apply to genital area twice daily after cleaning nystatin 2023-0 Yes [id number] Apply to U nivers 100,000 1-13 area(s) 2 ity of unit/gram 00:00: (two) [place] cream 00 times Medical daily. Branch Apply to genital area twice daily after cleaning nystatin 2023-0 Yes [id number] Apply to U nivers 100,000 1-13 area(s) 2 ity of unit/gram 00:00: (two) [place] cream 00 times Medical daily. Branch Apply to genital area twice daily after cleaning nystatin 2023-0 Yes [id number] Apply to U nivers 100,000 1-13 area(s) 2 ity of unit/gram 00:00: (two) [place] cream 00 times Medical daily. Branch Apply to genital area twice daily after cleaning nystatin 3-0 Yes [id number] Apply to U nivers 100,000 1-13 area(s) 2 ity of unit/gram 00:00: (two) [place] cream 00 times Medical daily. Branch Apply to genital area twice daily after cleaning nystatin 2023-0 Yes [id number] Apply to U nivers 100,000 1-13 area(s) 2 ity of unit/gram 00:00: (two) [place] cream 00 times Medical daily. Branch Apply to genital area twice daily after cleaning nystatin 3-0 Yes [id number] Apply to U nivers 100,000 1-13 area(s) 2 ity of unit/gram 00:00: (two) [place] cream 00 times Medical daily. Branch Apply to genital area twice daily after cleaning nystatin 2023-0 Yes [id number] Apply to U nivers 100,000 1-13 area(s) 2 ity of unit/gram 00:00: (two) [place] cream 00 times Medical daily. Branch Apply to genital area twice daily after cleaning nystatin 3-0 Yes [id number] Apply to U nivers 100,000 1-13 area(s) 2 ity of unit/gram 00:00: (two) [place] cream 00 times Medical daily. Branch Apply to genital area twice daily after cleaning nystatin 2023-0 Yes [id number] Apply to U nivers 100,000 1-13 area(s) 2 ity of unit/gram 00:00: (two) [place] cream 00 times Medical daily. Branch Apply to genital area twice daily after cleaning nystatin 2023-0 Yes [id number] Apply to U nivers 100,000 1-13 area(s) 2 ity of unit/gram 00:00: (two) [place] cream 00 times Medical daily. Branch Apply to genital area twice daily after cleaning nystatin 2022-0 Yes [id number] Apply to U nivers 100,000 1-13 area(s) 2 ity of unit/gram 00:00: (two) [place] cream 00 times Medical daily. Branch Apply to genital area twice daily after cleaning nystatin 2022-0 Yes [id number] Apply to U nivers 100,000 1-13 area(s) 2 ity of unit/gram 00:00: (two) [place] cream 00 times Medical daily. Branch Apply to genital area twice daily after cleaning nystatin 2022-0 Yes [id number] Apply to U nivers 100,000 1-13 area(s) 2 ity of unit/gram 00:00: (two) [place] cream 00 times Medical daily. Branch Apply to genital area twice daily after cleaning atorvastati Yes 40mg Take 40 mg Univers n 40 mg 1-11 by mouth ity of tablet 11:02: at [place] [address] bedtime. Medical Branch glimepiride Yes 2mg Take 2 mg U nivers 2 mg tablet 1-11 by mouth ity of 11:02: daily with [place] [address] breakfast. Medical Branch hydrALAZINE 0 Yes 50mg Take 50 mg [facility] 50 mg 1-11 by mouth ity of tablet 11:02: every 8 [place] [address] (eight) Medical hours. Branch losartan 0 Yes 100mg Take 100 Univ ers 100 mg 1-11 mg by ity of tablet 11:02: mouth [place] [address] daily. Medical Branch amLODIPine 0 Yes 10mg Take 10 mg U nivers 10 mg 1-11 by mouth ity of tablet 11:02: in the [place] [address] morning. Medical Branch aspirin 81 2022-0 Yes 81mg Take 81 mg U nivers mg chewable 1-11 by mouth ity of tablet 11:02: in the [place] [address] morning. Medical Branch calcitrioL 2022-0 Yes .25ug Take 0.25 U nivers 0.25 mcg 1-11 mcg by ity of capsule 11:02: mouth [place] [address] every Medical other day. Branch insulin 2022-0 Yes Sliding Univers regular 1-11 Scale ity of human 100 11:02: [place] unit/mL 33 Medical injection Branch ondansetron 2022-0 Yes 4mg Take 4 mg U nivers 4 mg tablet 1-11 by mouth ity of 11:02: every 4 [place] [address] (four) Medical hours. Branch SODIUM 2022-0 Yes 650mg Take 650 Univer s BICARBONATE 1-11 mg by ity of ORAL 11:02: mouth 2 [place] [address] (two) Medical times Branch daily. Cholecalcif 3-0 Yes 1{tbl} Take 1 Un leatha jane, 1-11 tablet by ity of Vitamin D3, 11:02: mouth. [place] 125 [facility] Medical (5,000 Branch unit) tablet carvediloL 2022-0 Yes 12.5mg Take 12.5 Univers 12.5 mg 1-11 mg by ity of tablet 11:02: mouth in [place] [address] the Medical morning Branch and 12.5 mg in the evening. Take with meals. clopidogreL 2022-0 Yes 75mg Take 75 mg Univers 75 mg 1-11 by mouth ity of tablet 11:02: in the [place] [address] morning. Medical Branch finasteride 2022-0 Yes 5mg Take 5 mg U nivers 5 mg tablet 1-11 by mouth ity of 11:02: in the [place] [address] morning. Medical Branch foLIC acid 2022-0 Yes 1mg Take 1 mg Un [place] 1 mg tablet -11 by mouth ity of 11:02: in the [place] [address] morning. Medical Branch hydrALAZINE 2022-0 Yes 100mg Take 100 U nivers 100 mg 1-11 mg by ity of tablet 11:02: mouth in [place] [address] the Medical morning Branch and 100 mg at noon and 100 mg in the evening. ondansetron 2022-0 Yes 4mg Take 4 mg U nivers 4 mg tablet 1-11 by mouth ity of 11:02: every 4 [place] [address] (four) Medical hours as Branch needed for Nausea and Vomiting (N/V). tamsulosin 2022-0 Yes Take by Univ ers 0.4 mg 24 1-11 mouth at ity of hr capsule 11:02: bedtime. [facility] as Medical Branch acetaminoph 3-0 Yes 650mg Take 650 U nivers en 325 mg 1-11 mg by ity of Cap 11:02: mouth [place] [address] every 6 Medical (six) Branch hours as needed for Pain (scale 1-3). insulin Yes inject Univers regular 1-11 under the ity of human Soln 11:02: skin [place] injection 33 before Medical meals and Branch at bedtime. atorvastati Yes 40mg Take 40 mg Univers n 40 mg -11 by mouth ity of tablet 11:02: at [place] [address] bedtime. Medical Branch glimepiride Yes 2mg Take 2 mg U nivers 2 mg tablet -11 by mouth ity of 11:02: daily with [place] [address] breakfast. Medical Branch hydrALAZINE Yes 50mg Take 50 mg Univers 50 mg -11 by mouth ity of tablet 11:02: every 8 [place] [address] (eight) Medical hours. Branch losartan Yes 100mg Take 100 Univ ers 100 mg 1-11 mg by ity of tablet 11:02: mouth [place] [address] daily. Medical Branch amLODIPine Yes 10mg Take 10 mg U nivers 10 mg -11 by mouth ity of tablet 11:02: in the [place] [address] morning. Medical Branch aspirin 81 Yes 81mg Take 81 mg U nivers mg chewable -11 by mouth ity of tablet 11:02: in the [place] [address] morning. Medical Branch calcitrioL Yes .25ug Take 0.25 U nivers 0.25 mcg 1-11 mcg by ity of capsule 11:02: mouth [place] [address] every Medical other day. Branch insulin Yes Sliding Univers regular 1-11 Scale ity of human 100 11:02: [place] unit/mL 33 Medical injection Branch ondansetron Yes 4mg Take 4 mg U nivers 4 mg tablet 1-11 by mouth ity of 11:02: every 4 [place] [address] (four) Medical hours. Branch SODIUM Yes 650mg Take 650 Univer s BICARBONATE 1-11 mg by ity of ORAL 11:02: mouth 2 [place] [address] (two) Medical times Branch daily. Cholecalcif Yes 1{tbl} Take 1 Un [place] jane, 1-11 tablet by ity of Vitamin D3, 11:02: mouth. [place] 125 mcg 33 Medical (5,000 Branch unit) tablet carvediloL Yes 12.5mg Take 12.5 Univers 12.5 mg 1-11 mg by ity of tablet 11:02: mouth in [place] [address] the Medical morning Branch and 12.5 mg in the evening. Take with meals. clopidogreL 2022-0 Yes 75mg Take 75 mg Univers 75 mg -11 by mouth ity of tablet 11:02: in the [place] [address] morning. Medical Branch finasteride 2022-0 Yes 5mg Take 5 mg U nivers 5 mg tablet 11 by mouth ity of 11:02: in the [place] [address] morning. Medical Branch foLIC acid 2022-0 Yes 1mg Take 1 mg Un le[place] 1 mg tablet -11 by mouth ity of 11:02: in the [place] [address] morning. Medical Branch hydrALAZINE 2022-0 Yes 100mg Take 100 U nivers 100 mg 1-11 mg by ity of tablet 11:02: mouth in [place] [address] the Medical morning Branch and 100 mg at noon and 100 mg in the evening. ondansetron 2022-0 Yes 4mg Take 4 mg U nivers 4 mg tablet 11 by mouth ity of 11:02: every 4 [place] [address] (four) Medical hours as Branch needed for Nausea and Vomiting (N/V). tamsulosin 2022-0 Yes Take by Univ ers 0.4 mg 24 1-11 mouth at ity of hr capsule 11:02: bedtime. [place] [address] Medical Branch acetaminoph 2022-0 Yes 650mg Take 650 U nivers en 325 mg 1-11 mg by ity of Cap 11:02: mouth [place] [address] every 6 Medical (six) Branch hours as needed for Pain (scale 1-3). insulin 2022-0 Yes inject Univers regular -11 under the ity of human Soln 11:02: skin [place] injection before Medical meals and Branch at bedtime. atorvastati 2022-0 Yes 40mg Take 40 mg Univers n 40 mg -11 by mouth ity of tablet 11:02: at [place] [address] bedtime. Medical Branch glimepiride 2022-0 Yes 2mg Take 2 mg U nivers 2 mg tablet -11 by mouth ity of 11:02: daily with [place] [address] breakfast. Medical Branch hydrALAZINE 2022-0 Yes 50mg Take 50 mg Univers 50 mg -11 by mouth ity of tablet 11:02: every 8 [place] [address] (eight) Medical hours. Branch losartan 2022-0 Yes 100mg Take 100 Univ ers 100 mg 1-11 mg by ity of tablet 11:02: mouth [place] [address] daily. Medical Branch amLODIPine 2022-0 Yes 10mg Take 10 mg U nivers 10 mg 1-11 by mouth ity of tablet 11:02: in the [place] [address] morning. Medical Branch aspirin 81 2022-0 Yes 81mg Take 81 mg U nivers mg chewable 1-11 by mouth ity of tablet 11:02: in the [place] [address] morning. Medical Branch calcitrioL 2022-0 Yes .25ug Take 0.25 U nivers 0.25 mcg 1-11 mcg by ity of capsule 11:02: mouth [place] [address] every Medical other day. Branch insulin 2022-0 Yes Sliding Univers regular 1-11 Scale ity of human 100 11:02: [place] unit/mL 33 Medical injection Branch ondansetron 2022-0 Yes 4mg Take 4 mg U nivers 4 mg tablet 1-11 by mouth ity of 11:02: every 4 [place] [address] (four) Medical hours. Branch SODIUM 2022-0 Yes 650mg Take 650 Univer s BICARBONATE 1-11 mg by ity of ORAL 11:02: mouth 2 [place] [address] (two) Medical times Branch daily. Cholecalcif 2022-0 Yes 1{tbl} Take 1 Un [place], 1-11 tablet by ity of Vitamin D3, 11:02: mouth. [place] 125 mcg Medical (5,000 Branch unit) tablet carvediloL 2022-0 Yes 12.5mg Take 12.5 Univers 12.5 mg 1-11 mg by ity of tablet 11:02: mouth in [place] [address] the Medical morning Branch and 12.5 mg in the evening. Take with meals. clopidogreL 2022-0 Yes 75mg Take 75 mg Univers 75 mg 1-11 by mouth ity of tablet 11:02: in the [place] [address] morning. Medical Branch finasteride 2022-0 Yes 5mg Take 5 mg U nivers 5 mg tablet 1-11 by mouth ity of 11:02: in the [place] [address] morning. Medical Branch foLIC acid 2022-0 Yes 1mg Take 1 mg Un [place] 1 mg tablet 1-11 by mouth ity of 11:02: in the [place] [address] morning. Medical Branch hydrALAZINE Yes 100mg Take 100 U nivers 100 mg 1-11 mg by ity of tablet 11:02: mouth in [place] 33 the Medical morning Branch and 100 mg at noon and 100 mg in the evening. ondansetron Yes 4mg Take 4 mg U nivers 4 mg tablet -11 by mouth ity of 11:02: every 4 [place] 33 (four) Medical hours as Branch needed for Nausea and Vomiting (N/V). tamsulosin Yes Take by Univ ers 0.4 mg 24 1-11 mouth at ity of hr capsule 11:02: bedtime. [place] 33 Medical Branch acetaminoph Yes 650mg Take 650 U nivers en 325 mg 1-11 mg by ity of Cap 11:02: mouth [place] 33 every 6 Medical (six) Branch hours as needed for Pain (scale 1-3). insulin Yes inject Univers regular -11 under the ity of human Soln 11:02: skin [place] injection 33 before Medical meals and Branch at bedtime. RETACRIT 0 Yes Univers 10,000 1-06 ity of unit/mL 00:00: [place] injection 00 Medical Branch RETACRIT 2022-0 Yes Univers 10,000 1-06 ity of unit/mL 00:00: [place] injection 00 Medical Branch RETACRIT 2022-0 Yes Univers 10,000 1-06 ity of unit/mL 00:00: [place] injection 00 Medical Branch RETACRIT 2022-0 Yes Univers 10,000 1-06 ity of unit/mL 00:00: [place] injection 00 Medical Branch RETACRIT 2022-0 Yes Univers 10,000 1-06 ity of unit/mL 00:00: [place] injection 00 Medical Branch RETACRIT 2022-0 Yes Univers 10,000 1-06 ity of unit/mL 00:00: [place] injection 00 Medical Branch RETACRIT 2022-0 Yes Univers 10,000 1-06 ity of unit/mL 00:00: [place] injection 00 Medical Branch RETACRIT 2022-0 Yes Univers 10,000 1-06 ity of unit/mL 00:00: [place] injection 00 Medical Branch RETACRIT 2022-0 Yes Univers 10,000 1-06 ity of unit/mL 00:00: [place] injection 00 Medical Branch RETACRIT 2023-0 Yes Univers 10,000 1-06 ity of unit/mL 00:00: [place] injection 00 Medical Branch RETACRIT 2023-0 Yes Univers 10,000 1-06 ity of unit/mL 00:00: [place] injection 00 Medical Branch RETACRIT 2023-0 Yes Univers 10,000 1-06 ity of unit/mL 00:00: [place] injection 00 Medical Branch RETACRIT 2023-0 Yes Univers 10,000 1-06 ity of unit/mL 00:00: [place] injection 00 Medical Branch RETACRIT 2023-0 Yes Univers 10,000 1-06 ity of unit/mL 00:00: [place] injection 00 Medical Branch RETACRIT 2023-0 Yes Univers 10,000 1-06 ity of unit/mL 00:00: [place] injection 00 Medical Branch RETACRIT 2023-0 Yes Univers 10,000 1-06 ity of unit/mL 00:00: [place] injection 00 Medical Branch RETACRIT 2023-0 Yes Univers 10,000 1-06 ity of unit/mL 00:00: [place] injection 00 Medical Branch RETACRIT 2023-0 Yes Univers 10,000 1-06 ity of unit/mL 00:00: [place] injection 00 Medical Branch RETACRIT 2023-0 Yes Univers 10,000 1-06 ity of unit/mL 00:00: [place] injection 00 Medical Branch RETACRIT 2023-0 Yes Univers 10,000 1-06 ity of unit/mL 00:00: [place] injection 00 Medical Branch RETACRIT 2023-0 Yes Univers 10,000 1-06 ity of unit/mL 00:00: [place] injection 00 Medical Branch RETACRIT 2023-0 Yes Univers 10,000 1-06 ity of unit/mL 00:00: [place] injection 00 Medical Branch RETACRIT 2023-0 Yes Univers 10,000 1-06 ity of unit/mL 00:00: [place] injection 00 Medical Branch RETACRIT 2023-0 Yes Univers 10,000 1-06 ity of unit/mL 00:00: [place] injection 00 Medical Branch RETACRIT 2023-0 Yes Univers 10,000 1-06 ity of unit/mL 00:00: [place] injection 00 Medical Branch RETACRIT 2023-0 Yes Univers 10,000 1-06 ity of unit/mL 00:00: [place] injection 00 Medical Branch RETACRIT 2023-0 Yes Univers 10,000 1-06 ity of unit/mL 00:00: [place] injection 00 Medical Branch RETACRIT 2023-0 Yes Univers 10,000 1-06 ity of unit/mL 00:00: [place] injection 00 Medical Branch RETACRIT 2023-0 Yes Univers 10,000 1-06 ity of unit/mL 00:00: [place] injection 00 Medical Branch RETACRIT 2023-0 Yes Univers 10,000 1-06 ity of unit/mL 00:00: [place] injection 00 Medical Branch RETACRIT 2023-0 Yes Univers 10,000 1-06 ity of unit/mL 00:00: [place] injection 00 Medical Branch RETACRIT 2023-0 Yes Univers 10,000 1-06 ity of unit/mL 00:00: [place] injection 00 Medical Branch RETACRIT 2023-0 Yes Univers 10,000 1-06 ity of unit/mL 00:00: [place] injection 00 Medical Branch RETACRIT 2023-0 Yes Univers 10,000 1-06 ity of unit/mL 00:00: [place] injection 00 Medical Branch RETACRIT 2023-0 Yes Univers 10,000 1-06 ity of unit/mL 00:00: [place] injection 00 Medical Branch NOVOLIN R 2023-0 Yes Univers FLEXPEN 100 1-05 ity of unit/mL (3 00:00: [place] mL) InPn 00 Medical Branch NOVOLIN R 2023-0 Yes Univers FLEXPEN 100 1-05 ity of unit/mL (3 00:00: [place] mL) InPn 00 Medical Branch NOVOLIN R 2023-0 Yes Univers FLEXPEN 100 1-05 ity of unit/mL (3 00:00: [place] mL) InPn 00 Medical Branch NOVOLIN R 2023-0 Yes Univers FLEXPEN 100 1-05 ity of unit/mL (3 00:00: [place] mL) InPn 00 Medical Branch NOVOLIN R 2023-0 Yes Univers FLEXPEN 100 1-05 ity of unit/mL (3 00:00: [place] mL) InPn 00 Medical Branch NOVOLIN R 2023-0 Yes Univers FLEXPEN 100 1-05 ity of unit/mL (3 00:00: [place] mL) InPn 00 Medical Branch NOVOLIN R 3-0 Yes [facility] FLEXPEN 100 1-05 ity of unit/mL (3 00:00: [place] mL) InPn 00 Medical Branch NOVOLIN R 3-0 Yes [facility] FLEXPEN 100 1-05 ity of unit/mL (3 00:00: [place] mL) InPn 00 Medical Branch NOVOLIN R 3-0 Yes [facility] FLEXPEN 100 1-05 ity of unit/mL (3 00:00: [place] mL) InPn 00 Medical Branch NOVOLIN R 3-0 Yes [facility] FLEXPEN 100 1-05 ity of unit/mL (3 00:00: [place] mL) InPn 00 Medical Branch NOVOLIN R 3-0 Yes [facility] FLEXPEN 100 1-05 ity of unit/mL (3 00:00: [place] mL) InPn 00 Medical Branch NOVOLIN R 3-0 Yes [facility] FLEXPEN 100 1-05 ity of unit/mL (3 00:00: [place] mL) InPn 00 Medical Branch NOVOLIN R 3-0 Yes [facility] FLEXPEN 100 1-05 ity of unit/mL (3 00:00: [place] mL) InPn 00 Medical Branch NOVOLIN R 3-0 Yes [facility] FLEXPEN 100 1-05 ity of unit/mL (3 00:00: [place] mL) InPn 00 Medical Branch NOVOLIN R 3-0 Yes [facility] FLEXPEN 100 1-05 ity of unit/mL (3 00:00: [place] mL) InPn 00 Medical Branch NOVOLIN R 3-0 Yes [facility] FLEXPEN 100 1-05 ity of unit/mL (3 00:00: [place] mL) InPn 00 Medical Branch NOVOLIN R 3-0 Yes [facility] FLEXPEN 100 1-05 ity of unit/mL (3 00:00: [place] mL) InPn 00 Medical Branch NOVOLIN R 3-0 Yes [facility] FLEXPEN 100 1-05 ity of unit/mL (3 00:00: [place] mL) InPn 00 Medical Branch NOVOLIN R 2023-0 Yes [facility] FLEXPEN 100 1-05 ity of unit/mL (3 00:00: [place] mL) InPn 00 Medical Branch NOVOLIN R 2023-0 Yes [facility] FLEXPEN 100 1-05 ity of unit/mL (3 00:00: [place] mL) InPn 00 Medical Branch NOVOLIN R 2023-0 Yes [facility] FLEXPEN 100 1-05 ity of unit/mL (3 00:00: [place] mL) InPn 00 Medical Branch NOVOLIN R 2023-0 Yes [facility] FLEXPEN 100 1-05 ity of unit/mL (3 00:00: [place] mL) InPn 00 Medical Branch NOVOLIN R 2023-0 Yes [facility] FLEXPEN 100 1-05 ity of unit/mL (3 00:00: [place] mL) InPn 00 Medical Branch NOVOLIN R 2023-0 Yes [facility] FLEXPEN 100 1-05 ity of unit/mL (3 00:00: [place] mL) InPn 00 Medical Branch NOVOLIN R 2023-0 Yes [facility] FLEXPEN 100 1-05 ity of unit/mL (3 00:00: [place] mL) InPn 00 Medical Branch NOVOLIN R 2023-0 Yes [facility] FLEXPEN 100 1-05 ity of unit/mL (3 00:00: [place] mL) InPn 00 Medical Branch NOVOLIN R 2023-0 Yes [facility] FLEXPEN 100 1-05 ity of unit/mL (3 00:00: [place] mL) InPn 00 Medical Branch NOVOLIN R 2023-0 Yes [facility] FLEXPEN 100 1-05 ity of unit/mL (3 00:00: [place] mL) InPn 00 Medical Branch NOVOLIN R 2023-0 Yes [facility] FLEXPEN 100 1-05 ity of unit/mL (3 00:00: [place] mL) InPn 00 Medical Branch NOVOLIN R 2023-0 Yes [facility] FLEXPEN 100 1-05 ity of unit/mL (3 00:00: [place] mL) InPn 00 Medical Branch NOVOLIN R 2023-0 Yes [facility] FLEXPEN 100 1-05 ity of unit/mL (3 00:00: [place] mL) InPn 00 Medical Branch NOVOLIN R 2023-0 Yes [facility] FLEXPEN 100 1-05 ity of unit/mL (3 00:00: [place] mL) InPn 00 Medical Branch NOVOLIN R 2023-0 Yes [facility] FLEXPEN 100 1-05 ity of unit/mL (3 00:00: [place] mL) InPn 00 Medical Branch NOVOLIN R 2023-0 Yes [facility] FLEXPEN 100 1-05 ity of unit/mL (3 00:00: [place] mL) InPn 00 Medical Branch NOVOLIN R 2023-0 Yes [facility] FLEXPEN 100 1-05 ity of unit/mL (3 00:00: [place] mL) InPn 00 Medical Branch levothyroxi 2023-0 Yes Univer s ne 25 mcg 1-03 ity of tablet 00:00: [place] [address] Medical Branch levothyroxi 2023-0 Yes Univer s ne 25 mcg 1-03 ity of tablet 00:00: [place] [address] Medical Branch levothyroxi 2023-0 Yes Univer s ne 25 mcg 1-03 ity of tablet 00:00: [place] [address] Medical Branch levothyroxi 2023-0 Yes Univer s ne 25 mcg 1-03 ity of tablet 00:00: [place] [address] Medical Branch levothyroxi 2023-0 Yes Univer s ne 25 mcg 1-03 ity of tablet 00:00: [place] [address] Medical Branch levothyroxi 2023-0 Yes Univer s ne 25 mcg 1-03 ity of tablet 00:00: [place] [address] Medical Branch levothyroxi 2023-0 Yes Univer s ne 25 mcg 1-03 ity of tablet 00:00: [place] [address] Medical Branch levothyroxi 2023-0 Yes Univer s ne 25 mcg 1-03 ity of tablet 00:00: [place] [address] Medical Branch levothyroxi 2023-0 Yes Univer s ne 25 mcg 1-03 ity of tablet 00:00: [place] [address] Medical Branch levothyroxi 2023-0 Yes Univer s ne 25 mcg 1-03 ity of tablet 00:00: [place] [address] Medical Branch levothyroxi 2023-0 Yes Univer s ne 25 mcg 1-03 ity of tablet 00:00: [place] [address] Medical Branch levothyroxi 2023-0 Yes Univer s ne 25 mcg 1-03 ity of tablet 00:00: [place] [address] Medical Branch levothyroxi 2023-0 Yes Univer s ne 25 mcg 1-03 ity of tablet 00:00: [place] [address] Medical Branch levothyroxi 2023-0 Yes Univer s ne 25 mcg 1-03 ity of tablet 00:00: [place] [address] Medical Branch levothyroxi 2023-0 Yes Univer s ne 25 mcg 1-03 ity of tablet 00:00: [place] [address] Medical Branch levothyroxi 2023-0 Yes Univer s ne 25 mcg 1-03 ity of tablet 00:00: [place] [address] Medical Branch levothyroxi 2023-0 Yes Univer s ne 25 mcg 1-03 ity of tablet 00:00: [place] 00 Medical Branch levothyroxi 2023-0 Yes Univer s ne 25 mcg 1-03 ity of tablet 00:00: [place] 00 Medical Branch levothyroxi 2023-0 Yes Univer s ne 25 mcg 1-03 ity of tablet 00:00: [place] 00 Medical Branch levothyroxi 2023-0 Yes Univer s ne 25 mcg 1-03 ity of tablet 00:00: [place] 00 Medical Branch levothyroxi 2023-0 Yes Univer s ne 25 mcg 1-03 ity of tablet 00:00: [place] [address] Medical Branch levothyroxi 3-0 Yes Univer s ne 25 mcg 1-03 ity of tablet 00:00: [place] [address] Medical Branch levothyroxi 3-0 Yes Univer s ne 25 mcg 1-03 ity of tablet 00:00: [place] [address] Medical Branch levothyroxi 3-0 Yes Univer s ne 25 mcg 1-03 ity of tablet 00:00: [place] 00 Medical Branch levothyroxi 2023-0 Yes Univer s ne 25 mcg 1-03 ity of tablet 00:00: [place] [address] Medical Branch levothyroxi 2023-0 Yes Univer s ne 25 mcg 1-03 ity of tablet 00:00: [place] [address] Medical Branch levothyroxi 2023-0 Yes Univer s ne 25 mcg 1-03 ity of tablet 00:00: [place] [address] Medical Branch levothyroxi 2023-0 Yes Univer s ne 25 mcg 1-03 ity of tablet 00:00: [place] 00 Medical Branch levothyroxi 2023-0 Yes Univer s ne 25 mcg 1-03 ity of tablet 00:00: [place] 00 Medical Branch levothyroxi 2023-0 Yes Univer s ne 25 mcg 1-03 ity of tablet 00:00: [place] 00 Medical Branch levothyroxi 2023-0 Yes Univer s ne 25 mcg 1-03 ity of tablet 00:00: [place] 00 Medical Branch levothyroxi 2023-0 Yes Univer s ne 25 mcg 1-03 ity of tablet 00:00: [place] [address] Medical Branch levothyroxi 2023-0 Yes Univer s ne 25 mcg 1-03 ity of tablet 00:00: [place] 00 Medical Branch levothyroxi 2023-0 Yes Univer s ne 25 mcg 1-03 ity of tablet 00:00: 00 Medical Branch levothyroxi Yes Univer s ne 25 mcg 1-03 ity of tablet 00:00: [place] 00 Medical Branch HYDROcodone 2021-09- No 4647 1{tbl} Take 1 U nivers -acetaminop 2-21 12-29 tablet by it y of hen 5-325 00:00: 05:59 mouth [place] mg tablet 00 :00 every 4 Medical (four) Branch hours as needed for Pain (scale 4-6) for up to 7 days. Indication s: acute pain HYDROcodone 2021-09 4647 1{tbl} Take 1 U nivers -acetaminop 2-21 12-29 tablet by it y of hen 5-325 00:00: 05:59 mouth [place] mg tablet 00 :00 every 4 Medical (four) Branch hours as needed for Pain (scale 4-6) for up to 7 days. Indication s: acute pain traMADoL 2021-09 Yes 50mg 50 mg, Univers (ULTRAM) 09-26 Oral, PRN, ity o f tablet 50 19:21: 1 dose, [place] mg 38 Starting Medical on [facility] 07/27/22 at 1321, Until Discontinu ed, Routine, Pain (scale 7-10), DSU Recovery traMADoL 2021-09 Yes 50mg 50 mg, Univers (ULTRAM) 09-26 Oral, PRN, ity o f tablet 50 19:21: 1 dose, [place] mg 38 Starting Medical on [facility] 07/27/22 at 1321, Until Discontinu ed, Routine, Pain (scale 1-3), DSU Recovery ondansetron 2021-09 Yes 4mg 4 mg, Slow Univers (ZOFRAN 09-26 IV Push, ity of (PF)) 19:21: Q4HPRN, 1 [place] injection 4 38 dose, Medical mg Starting Branch on [facility] 07/27/22 at 1321, Until Discontinu ed, Routine, Nausea and Vomiting (N/V), DSU Recovery traMADoL 2021-09 50mg 50 mg, Univer s (ULTRAM) 09-26 1122 Oral, PRN, ity of tablet 50 19:21: 23:25 1 dose, [place] mg 38 :11 Starting Medical on Branch 07/27/22 at 1321, Until Tue07/27/22 at 1725, Routine, Pain (scale 7-10), DSU Recovery traMADoL 2021-09- No 50mg 50 mg, Univer s (ULTRAM) 09-26 Oral, PRN, ity of tablet 50 19:21: 23:25 1 dose, [place] mg 38 :11 Starting Medical on 07/27/22 at 1321, Until Tue07/27/22 at 1725, Routine, Pain (scale 1-3), DSU Recovery ondansetron 2021-09- No 4mg 4 mg, Slow [facility] (ZOFRAN 09-26 IV Push, ity of (PF)) 19:21: 23:25 Q4HPRN, 1 [place] injection 4 38 :11 dose, Medical mg Starting Branch on Tue07/27/22 at 1321, Until Tue07/27/22 at 1725, Routine, Nausea and Vomiting (N/V), DSU Recovery bupivacaine 2021-09- No PRN, Unive rs (preserv 09-26 Starting ity of free) 0.5% 18:53: 19:29 on Tuea s (SENSORCAIN 00 :00 07/27/22 Medi vick E MPF) 0.5 at 1253, Branc h % (5 mg/mL) Intra-op 30 mL, bupivacaine liposome (PF) (EXPAREL (PF)) 1.3 % (13.3 mg/mL) 20 mg sodium 2021-09 Yes PRN, Univers chloride 09-26 Starting ity of 0.9 % 18:50: on Tue [place] irrigation 00 07/27/22 Medic al solution at 1250, Branch Until Discontinu ed, Intra-op sodium 2021-09- No PRN, Univers chloride 09-26 Starting ity of 0.9 % 18:50: 23:25 on Tue [place] irrigation 00 :11 07/27/22 Medic al solution at 1250, Branch Until Tue07/27/22 at 1725, Intra-op lactated 2021-09- No 1000mL at 42 Unive rs ringers IV 1-22 11-22 mL/hr, ity of infusion 16:00: 16:15 1,000 mL, [place] 1,000 mL 00 :00 IV Medical Infusion, Branch ONCE, 1 dose, On Tue07/27/22 at 1000, Routine, DSU Pre-op lactated 2021-09- No 1000mL at 42 [facility] rs ringers IV 1-22 11-22 mL/hr, ity of infusion 16:00: 16:15 1,000 mL, [place] 1,000 mL 00 :00 IV Medical Infusion, Branch ONCE, 1 dose, On Tue07/27/22 at 1000, Routine, DSU Pre-op tamsulosin 2021-09 Yes Take by [facility] ers 0.4 mg 24 1-22 mouth ity of hr capsule 15:25: daily. [place] [address] Medical Branch carvediloL 2021-09 Yes 12.5mg Take 12.5 Univers 12.5 mg 1-22 mg by ity of tablet 15:25: mouth in [place] [address] the Medical morning Branch and 12.5 mg in the evening. Take with meals. clopidogreL 2021-09 Yes 75mg Take 75 mg [facility] 75 mg 1-22 by mouth ity of tablet 15:25: in the [place] [address] morning. Medical Branch finasteride 2021-09 Yes 5mg Take 5 mg U nivers 5 mg tablet -22 by mouth ity of 15:25: in the [place] [address] morning. Medical Branch foLIC acid 2021-09 Yes 1mg Take 1 mg Un leatha 1 mg tablet -22 by mouth ity of 15:25: in the [place] [address] morning. Medical Branch hydrALAZINE 2021-09 Yes 100mg Take 100 U nivers 100 mg 1-22 mg by ity of tablet 15:25: mouth in [place] [address] the Medical morning Branch and 100 mg at noon and 100 mg in the evening. tamsulosin 2021-09 Yes Take by [facility] ers 0.4 mg 24 1-22 mouth at ity of hr capsule 15:25: bedtime. [place] 08 Medical Branch acetaminoph 2021-09 Yes 650mg Take 650 U nivers en 325 mg 1-22 mg by ity of Cap 15:25: mouth [place] [address] every 6 Medical (six) Branch hours as needed for Pain (scale 1-3). insulin 2021-09 Yes inject [facility] regular 1-22 under the ity of human Soln 15:25: skin [place] injection 08 before Medical meals and Branch at bedtime. atorvastati 2021-09 Yes 40mg Take 40 mg [facility] n 40 mg 1-22 by mouth ity of tablet 15:25: at [place] 08 bedtime. Medical Branch glimepiride 2021-09 Yes 2mg Take 2 mg U nivers 2 mg tablet 1-22 by mouth ity of 15:25: daily with [place] 08 breakfast. Medical Branch insulin NPH 2021-09 Yes 10U inject 10 U nivers and regular 1-22 Units ity of human 70-30 15:25: under the [place] 100 unit/mL 08 skin 2 Medica l (70-30) (two) Branch injection times daily before breakfast and dinner. hydrALAZINE 2021-09 Yes 50mg Take 50 mg Univers 50 mg 1-22 by mouth ity of tablet 15:25: every 8 [place] 08 (eight) Medical hours. Branch losartan 2021-09 Yes 100mg Take 100 Univ ers 100 mg 1-22 mg by ity of tablet 15:25: mouth [place] 08 daily. Medical Branch amLODIPine 2021-09 Yes 10mg Take 10 mg U nivers 10 mg 1-22 by mouth ity of tablet 15:25: in the [place] 08 morning. Medical Branch aspirin 81 2021-09 Yes 81mg Take 81 mg U nivers mg chewable 1-22 by mouth ity of tablet 15:25: in the [place] 08 morning. Medical Branch calcitrioL 2021-09 Yes .25ug Take 0.25 U nivers 0.25 mcg 1-22 mcg by ity of capsule 15:25: mouth [place] 08 every Medical other day. Branch carvediloL 2021-09 Yes 12.5mg Take 12.5 [facility] 12.5 mg 1-22 mg by ity of tablet 15:25: mouth in [place] 08 the Medical morning Branch and 12.5 mg in the evening. Take with meals. clopidogreL 2021-09 Yes 75mg Take 75 mg [facility] 75 mg 1-22 by mouth ity of tablet 15:25: in the [place] 08 morning. Medical Branch insulin 2021-09 Yes Sliding [facility] regular 1-22 Scale ity of human 100 15:25: [place] unit/mL 08 Medical injection Branch ondansetron 2021-09 Yes 4mg Take 4 mg U nivers 4 mg tablet 1-22 by mouth ity of 15:25: every 4 [place] [address] (four) Medical hours. Branch SODIUM 2021-09 Yes 650mg Take 650 Univer s BICARBONATE 1-22 mg by ity of ORAL 15:25: mouth 2 [place] 08 (two) Medical times Branch daily. Cholecalcif 2021-09 Yes 1{tbl} Take 1 Un leatha jane, 1-22 tablet by ity of Vitamin D3, 15:25: mouth. [place] 125 mcg 08 Medical (5,000 Branch unit) tablet tamsulosin 2021-09 Yes Take by Univ ers 0.4 mg 24 1-22 mouth ity of hr capsule 15:25: daily. [place] [address] Medical Branch amLODIPine 2021-09 Yes 10mg Take 10 mg U nivers 10 mg 1-22 by mouth ity of tablet 15:25: in the [place] 08 morning. Medical Branch aspirin 81 2021-09 Yes 81mg Take 81 mg U nivers mg chewable 1-22 by mouth ity of tablet 15:25: in the [place] [address] morning. Medical Branch atorvastati 2021-09 Yes 40mg Take 40 mg Univers n 40 mg 1-22 by mouth ity of tablet 15:25: at [place] [address] bedtime. Medical Branch calcitrioL 2021-09 Yes .25ug Take 0.25 U nivers 0.25 mcg 1-22 mcg by ity of capsule 15:25: mouth [place] 08 every Medical other day. Branch carvediloL 2021-09 Yes 12.5mg Take 12.5 Univers 12.5 mg 1-22 mg by ity of tablet 15:25: mouth in [place] 08 the Medical morning Branch and 12.5 mg in the evening. Take with meals. clopidogreL 2021-09 Yes 75mg Take 75 mg [facility] 75 mg 1-22 by mouth ity of tablet 15:25: in the [place] 08 morning. Medical Branch finasteride 2021-09 Yes 5mg Take 5 mg U nivers 5 mg tablet 1-22 by mouth ity of 15:25: in the [place] 08 morning. Medical Branch foLIC acid 2021-09 Yes 1mg Take 1 mg Un leatha 1 mg tablet 1-22 by mouth ity of 15:25: in the [place] 08 morning. Medical Branch hydrALAZINE 2021-09 Yes 100mg Take 100 U nivers 100 mg 1-22 mg by ity of tablet 15:25: mouth in [place] 08 the Medical morning Branch and 100 mg at noon and 100 mg in the evening. ondansetron 2021-09 Yes 4mg Take 4 mg U nivers (ZOFRAN) 4 22 by mouth ity o f mg tablet 15:25: every 4 [place] 08 (four) Medical hours as Branch needed for Nausea and Vomiting (N/V). tamsulosin 2021-09 Yes Take by Univ ers 0.4 mg 24 -22 mouth at ity of hr capsule 15:25: bedtime. [place] 08 Medical Branch acetaminoph 2021-09 Yes 650mg Take 650 U nivers en 325 mg 1-22 mg by ity of Cap 15:25: mouth [place] 08 every 6 Medical (six) Branch hours as needed for Pain (scale 1-3). Cholecalcif 2021-09 Yes Take by Uni vers jane, 22 mouth. ity of Vitamin D3, 15:25: [place] 125 mcg 08 Medical (5,000 Branch unit) tablet insulin 2021-09 Yes inject [facility] regular -22 under the ity of human Soln 15:25: skin [place] injection 08 before Medical meals and Branch at bedtime. atorvastati 2021-09 Yes 40mg Take 40 mg [facility] n 40 mg -22 by mouth ity of tablet 15:25: at [place] 08 bedtime. Medical Branch glimepiride 2021-09 Yes 2mg Take 2 mg U nivers 2 mg tablet 22 by mouth ity of 15:25: daily with [place] 08 breakfast. Medical Branch insulin NPH 2021-09 Yes 10U inject 10 U nivers and regular 1-22 Units ity of human 70-30 15:25: under the [place] 100 unit/mL 08 skin 2 Medica l (70-30) (two) Branch injection times daily before breakfast and dinner. hydrALAZINE 2021-09 Yes 50mg Take 50 mg [facility] 50 mg 1-22 by mouth ity of tablet 15:25: every 8 [place] 08 (eight) Medical hours. Branch losartan 2021-09 Yes 100mg Take 100 Univ ers 100 mg 1-22 mg by ity of tablet 15:25: mouth [place] 08 daily. Medical Branch amLODIPine 2021-09 Yes 10mg Take 10 mg U nivers 10 mg 1-22 by mouth ity of tablet 15:25: in the [place] [address] morning. Medical Branch aspirin 81 2021-09 Yes 81mg Take 81 mg U nivers mg chewable 1-22 by mouth ity of tablet 15:25: in the [place] [address] morning. Medical Branch calcitrioL 2021-09 Yes .25ug Take 0.25 U nivers 0.25 mcg 1-22 mcg by ity of capsule 15:25: mouth [place] every Medical other day. Branch carvediloL 2021-09 Yes 12.5mg Take 12.5 Univers 12.5 mg 1-22 mg by ity of tablet 15:25: mouth in [place] [address] the Medical morning Branch and 12.5 mg in the evening. Take with meals. clopidogreL 2021-09 Yes 75mg Take 75 mg [facility] 75 mg 1-22 by mouth ity of tablet 15:25: in the [place] [address] morning. Medical Branch insulin 2021-09 Yes Sliding [facility] regular 1-22 Scale ity of human 100 15:25: [place] unit/mL 08 Medical injection Branch ondansetron 2021-09 Yes 4mg Take 4 mg U nivers 4 mg tablet 1-22 by mouth ity of 15:25: every 4 [place] [address] (four) Medical hours. Branch SODIUM 2021-09 Yes 650mg Take 650 Univer s BICARBONATE 1-22 mg by ity of ORAL 15:25: mouth 2 [place] [address] (two) Medical times Branch daily. Cholecalcif 2021-09 Yes 1{tbl} Take 1 Un leatha jane, 1-22 tablet by ity of Vitamin D3, 15:25: mouth. [place] 125 mcg 08 Medical (5,000 Branch unit) tablet tamsulosin 2021-09 Yes Take by Univ ers 0.4 mg 24 1-22 mouth ity of hr capsule 15:25: daily. [place] [address] Medical Branch carvediloL 2021-09 Yes 12.5mg Take 12.5 [facility] 12.5 mg 1-22 mg by ity of tablet 15:25: mouth in [place] [address] the Medical morning Branch and 12.5 mg in the evening. Take with meals. clopidogreL 2021-09 Yes 75mg Take 75 mg [facility] 75 mg 1-22 by mouth ity of tablet 15:25: in the [place] [address] morning. Medical Branch finasteride 2021-09 Yes 5mg Take 5 mg U nivers 5 mg tablet 1-22 by mouth ity of 15:25: in the 08 morning. Medical Branch foLIC acid 2021-09 Yes 1mg Take 1 mg Un le[place] 1 mg tablet 1-22 by mouth ity of 15:25: in the [place] 08 morning. Medical Branch hydrALAZINE 2021-09 Yes 100mg Take 100 U nivers 100 mg 1-22 mg by ity of tablet 15:25: mouth in [place] 08 the Medical morning Branch and 100 mg at noon and 100 mg in the evening. tamsulosin 2021-09 Yes Take by Univ ers 0.4 mg 24 1-22 mouth at ity of hr capsule 15:25: bedtime. [place] 08 Medical Branch acetaminoph 2021-09 Yes 650mg Take 650 U nivers en 325 mg 1-22 mg by ity of Cap 15:25: mouth [place] 08 every 6 Medical (six) Branch hours as needed for Pain (scale 1-3). insulin 2021-09 Yes inject [facility] regular 1-22 under the ity of human Soln 15:25: skin [place] injection 08 before Medical meals and Branch at bedtime. atorvastati 2021-09 Yes 40mg Take 40 mg [facility] n 40 mg 1-22 by mouth ity of tablet 15:25: at [place] 08 bedtime. Medical Branch glimepiride 2021-09 Yes 2mg Take 2 mg U nivers 2 mg tablet -22 by mouth ity of 15:25: daily with [place] 08 breakfast. Medical Branch insulin NPH 2021-09 Yes 10U inject 10 U nivers and regular 1-22 Units ity of human 70-30 15:25: under the [place] 100 unit/mL 08 skin 2 Medica l (70-30) (two) Branch injection times daily before breakfast and dinner. hydrALAZINE 2021-09 Yes 50mg Take 50 mg [facility] 50 mg 1-22 by mouth ity of tablet 15:25: every 8 [place] 08 (eight) Medical hours. Branch losartan 2021-09 Yes 100mg Take 100 Univ ers 100 mg 1-22 mg by ity of tablet 15:25: mouth [place] 08 daily. Medical Branch amLODIPine 2021-09 Yes 10mg Take 10 mg U nivers 10 mg 1-22 by mouth ity of tablet 15:25: in the [place] 08 morning. Medical Branch aspirin 81 2021-09 Yes 81mg Take 81 mg U nivers mg chewable 1-22 by mouth ity of tablet 15:25: in the [place] 08 morning. Medical Branch calcitrioL 2021-09 Yes .25ug Take 0.25 U nivers 0.25 mcg 1-22 mcg by ity of capsule 15:25: mouth [place] every Medical other day. Branch carvediloL 2021-09 Yes 12.5mg Take 12.5 Univers 12.5 mg 1-22 mg by ity of tablet 15:25: mouth in [place] 08 the Medical morning Branch and 12.5 mg in the evening. Take with meals. clopidogreL 2021-09 Yes 75mg Take 75 mg Univers 75 mg 1-22 by mouth ity of tablet 15:25: in the [place] [address] morning. Medical Branch insulin 2021-09 Yes Sliding [facility] regular 1-22 Scale ity of human 100 15:25: [place] unit/mL 08 Medical injection Branch ondansetron 2021-09 Yes 4mg Take 4 mg U nivers 4 mg tablet 1-22 by mouth ity of 15:25: every 4 [place] [address] (four) Medical hours. Branch SODIUM 2021-09 Yes 650mg Take 650 Univer s BICARBONATE 1-22 mg by ity of ORAL 15:25: mouth 2 [place] [address] (two) Medical times Branch daily. Cholecalcif 2021-09 Yes 1{tbl} Take 1 Un leatha jane, 1-22 tablet by ity of Vitamin D3, 15:25: mouth. [place] 125 mcg Medical (5,000 Branch unit) tablet tamsulosin 2021-09 Yes Take by Univ ers 0.4 mg 24 1-22 mouth ity of hr capsule 15:25: daily. [place] [address] Medical Branch amLODIPine 2021-09 Yes 10mg Take 10 mg U nivers 10 mg 1-22 by mouth ity of tablet 15:25: in the [place] [address] morning. Medical Branch aspirin 81 2021-09 Yes 81mg Take 81 mg U nivers mg chewable 1-22 by mouth ity of tablet 15:25: in the [place] 08 morning. Medical Branch atorvastati 2021-09 Yes 40mg Take 40 mg Univers n 40 mg 1-22 by mouth ity of tablet 15:25: at [place] 08 bedtime. Medical Branch calcitrioL 2021-09 Yes .25ug Take 0.25 U nivers 0.25 mcg 1-22 mcg by ity of capsule 15:25: mouth [place] 08 every Medical other day. Branch carvediloL 2021-09 Yes 12.5mg Take 12.5 Univers 12.5 mg 1-22 mg by ity of tablet 15:25: mouth in [place] 08 the Medical morning Branch and 12.5 mg in the evening. Take with meals. clopidogreL 2021-09 Yes 75mg Take 75 mg Univers 75 mg -22 by mouth ity of tablet 15:25: in the [place] 08 morning. Medical Branch finasteride 2021-09 Yes 5mg Take 5 mg U nivers 5 mg tablet 22 by mouth ity of 15:25: in the [place] 08 morning. Medical Branch foLIC acid 2021-09 Yes 1mg Take 1 mg Un leatha 1 mg tablet 22 by mouth ity of 15:25: in the [place] 08 morning. Medical Branch hydrALAZINE 2021-09 Yes 100mg Take 100 U nivers 100 mg 1-22 mg by ity of tablet 15:25: mouth in [place] 08 the Medical morning Branch and 100 mg at noon and 100 mg in the evening. ondansetron 2021-09 Yes 4mg Take 4 mg U nivers (ZOFRAN) 4 22 by mouth ity o f mg tablet 15:25: every 4 [place] 08 (four) Medical hours as Branch needed for Nausea and Vomiting (N/V). tamsulosin 2021-09 Yes Take by [facility] ers 0.4 mg 24 -22 mouth at ity of hr capsule 15:25: bedtime. [place] 08 Medical Branch acetaminoph 2021-09 Yes 650mg Take 650 U nivers en 325 mg 1-22 mg by ity of Cap 15:25: mouth [place] 08 every 6 Medical (six) Branch hours as needed for Pain (scale 1-3). Cholecalcif 2021-09 Yes Take by Uni vers jane, -22 mouth. ity of Vitamin D3, 15:25: [place] 125 mcg 08 Medical (5,000 Branch unit) tablet insulin 2021-09 Yes inject [facility] regular 22 under the ity of human Soln 15:25: skin [place] injection 08 before Medical meals and Branch at bedtime. atorvastati 2021-09 Yes 40mg Take 40 mg [facility] n 40 mg 1-22 by mouth ity of tablet 15:25: at [place] 08 bedtime. Medical Branch glimepiride 2021-09 Yes 2mg Take 2 mg U nivers 2 mg tablet 1-22 by mouth ity of 15:25: daily with [place] 08 breakfast. Medical Branch insulin NPH 2021-09 Yes 10U inject 10 U nivers and regular 1-22 Units ity of human 70-30 15:25: under the [place] 100 unit/mL 08 skin 2 Medica l (70-30) (two) Branch injection times daily before breakfast and dinner. hydrALAZINE 2021-09 Yes 50mg Take 50 mg [facility] 50 mg 1-22 by mouth ity of tablet 15:25: every 8 [place] 08 (eight) Medical hours. Branch losartan 2021-09 Yes 100mg Take 100 Univ ers 100 mg 1-22 mg by ity of tablet 15:25: mouth [place] 08 daily. Medical Branch amLODIPine 2021-09 Yes 10mg Take 10 mg U nivers 10 mg 1-22 by mouth ity of tablet 15:25: in the [place] 08 morning. Medical Branch aspirin 81 2021-09 Yes 81mg Take 81 mg U nivers mg chewable 1-22 by mouth ity of tablet 15:25: in the [place] 08 morning. Medical Branch calcitrioL 2021-09 Yes .25ug Take 0.25 U nivers 0.25 mcg 1-22 mcg by ity of capsule 15:25: mouth [place] 08 every Medical other day. Branch carvediloL 2021-09 Yes 12.5mg Take 12.5 [facility] 12.5 mg 1-22 mg by ity of tablet 15:25: mouth in [place] 08 the Medical morning Branch and 12.5 mg in the evening. Take with meals. clopidogreL 2021-09 Yes 75mg Take 75 mg [facility] 75 mg 1-22 by mouth ity of tablet 15:25: in the [place] 08 morning. Medical Branch insulin 2021-09 Yes Sliding [facility] regular 1-22 Scale ity of human 100 15:25: [place] unit/mL 08 Medical injection Branch ondansetron 2021-09 Yes 4mg Take 4 mg U nivers 4 mg tablet 1-22 by mouth ity of 15:25: every 4 [place] 08 (four) Medical hours. Branch SODIUM 2021-09 Yes 650mg Take 650 [facility] s BICARBONATE 1-22 mg by ity of ORAL 15:25: mouth 2 (two) Medical times Branch daily. Cholecalcif 2021-09 Yes 1{tbl} Take 1 Un leatha jane, 1-22 tablet by ity of Vitamin D3, 15:25: mouth. [place] 125 mcg 08 Medical (5,000 Branch unit) tablet tamsulosin 2021-09 Yes Take by [facility] ers 0.4 mg 24 1-22 mouth ity of hr capsule 15:25: daily. [place] [address] Medical Branch amLODIPine 2021-09 Yes 10mg Take 10 mg [facility] nivers 10 mg 1-22 by mouth ity of tablet 15:25: in the [place] [address] morning. Medical Branch aspirin 81 2021-09 Yes 81mg Take 81 mg [facility] nivers mg chewable 1-22 by mouth ity of tablet 15:25: in the [place] [address] morning. Medical Branch atorvastati 2021-09 Yes 40mg Take 40 mg [facility] n 40 mg 1-22 by mouth ity of tablet 15:25: at [place] [address] bedtime. Medical Branch calcitrioL 2021-09 Yes .25ug Take 0.25 U nivers 0.25 mcg 1-22 mcg by ity of capsule 15:25: mouth [place] 08 every Medical other day. Branch carvediloL 2021-09 Yes 12.5mg Take 12.5 [facility] 12.5 mg 1-22 mg by ity of tablet 15:25: mouth in [place] [address] the Medical morning Branch and 12.5 mg in the evening. Take with meals. clopidogreL 2021-09 Yes 75mg Take 75 mg [facility] 75 mg 1-22 by mouth ity of tablet 15:25: in the [place] [address] morning. Medical Branch finasteride 2021-09 Yes 5mg Take 5 mg [facility] nivers 5 mg tablet 1-22 by mouth ity of 15:25: in the [place] [address] morning. Medical Branch foLIC acid 2021-09 Yes 1mg Take 1 mg Un leatha 1 mg tablet 1-22 by mouth ity of 15:25: in the [place] [address] morning. Medical Branch hydrALAZINE 2021-09 Yes 100mg Take 100 U nivers 100 mg 1-22 mg by ity of tablet 15:25: mouth in [place] 08 the Medical morning Branch and 100 mg at noon and 100 mg in the evening. ondansetron 2021-09 Yes 4mg Take 4 mg U nivers (ZOFRAN) 4 -22 by mouth ity o f mg tablet 15:25: every 4 [place] 08 (four) Medical hours as Branch needed for Nausea and Vomiting (N/V). tamsulosin 2021-09 Yes Take by [facility] ers 0.4 mg 24 1-22 mouth at ity of hr capsule 15:25: bedtime. [place] 08 Medical Branch acetaminoph 2021-09 Yes 650mg Take 650 U nivers en 325 mg 1-22 mg by ity of Cap 15:25: mouth [place] 08 every 6 Medical (six) Branch hours as needed for Pain (scale 1-3). Cholecalcif 2021-09 Yes Take by [facility] vers jane, -22 mouth. ity of Vitamin D3, 15:25: [place] 125 mcg 08 Medical (5,000 Branch unit) tablet insulin 2021-09 Yes inject [facility] regular -22 under the ity of human Soln 15:25: skin [place] injection 08 before Medical meals and Branch at bedtime. atorvastati 2021-09 Yes 40mg Take 40 mg [facility] n 40 mg -22 by mouth ity of tablet 15:25: at [place] 08 bedtime. Medical Branch glimepiride 2021-09 Yes 2mg Take 2 mg U nivers 2 mg tablet 22 by mouth ity of 15:25: daily with [place] 08 breakfast. Medical Branch insulin NPH 2021-09 Yes 10U inject 10 U nivers and regular 1-22 Units ity of human 70-30 15:25: under the [place] 100 unit/mL 08 skin 2 Medica l (70-30) (two) Branch injection times daily before breakfast and dinner. hydrALAZINE 2021-09 Yes 50mg Take 50 mg [facility] 50 mg -22 by mouth ity of tablet 15:25: every 8 [place] 08 (eight) Medical hours. Branch losartan 2021-09 Yes 100mg Take 100 [facility] ers 100 mg 1-22 mg by ity of tablet 15:25: mouth [place] 08 daily. Medical Branch amLODIPine 2021-09 Yes 10mg Take 10 mg [facility] nivers 10 mg -22 by mouth ity of tablet 15:25: in the [place] 08 morning. Medical Branch aspirin 81 2021-09 Yes 81mg Take 81 mg [facility] nivers mg chewable 1-22 by mouth ity of tablet 15:25: in the [place] 08 morning. Medical Branch calcitrioL 2021-09 Yes .25ug Take 0.25 U nivers 0.25 mcg 1-22 mcg by ity of capsule 15:25: mouth [place] 08 every Medical other day. Branch carvediloL 2021-09 Yes 12.5mg Take 12.5 [facility] 12.5 mg 1-22 mg by ity of tablet 15:25: mouth in [place] 08 the Medical morning Branch and 12.5 mg in the evening. Take with meals. clopidogreL 2021-09 Yes 75mg Take 75 mg [facility] 75 mg 1-22 by mouth ity of tablet 15:25: in the [place] [address] morning. Medical Branch insulin 2021-09 Yes Sliding [facility] regular 1-22 Scale ity of human 100 15:25: [place] unit/mL 08 Medical injection Branch ondansetron 2021-09 Yes 4mg Take 4 mg [facility] nivers 4 mg tablet -22 by mouth ity of 15:25: every 4 [place] [address] (four) Medical hours. Branch SODIUM 2021-09 Yes 650mg Take 650 [facility] s BICARBONATE 1-22 mg by ity of ORAL 15:25: mouth 2 [place] [address] (two) Medical times Branch daily. Cholecalcif 2021-09 Yes 1{tbl} Take 1 [facility] [place] jane, 1-22 tablet by ity of Vitamin D3, 15:25: mouth. [place] 125 mcg 08 Medical (5,000 Branch unit) tablet tamsulosin 2021-09 Yes Take by [facility] ers 0.4 mg 24 1-22 mouth ity of hr capsule 15:25: daily. [place] [address] Medical Branch amLODIPine 2021-09 Yes 10mg Take 10 mg [facility] nivers 10 mg 1-22 by mouth ity of tablet 15:25: in the [place] [address] morning. Medical Branch aspirin 81 2021-09 Yes 81mg Take 81 mg [facility] nivers mg chewable 1-22 by mouth ity of tablet 15:25: in the [place] [address] morning. Medical Branch atorvastati 2021-09 Yes 40mg Take 40 mg [facility] n 40 mg 1-22 by mouth ity of tablet 15:25: at [place] [address] bedtime. Medical Branch calcitrioL 2021-09 Yes .25ug Take 0.25 U nivers 0.25 mcg 1-22 mcg by ity of capsule 15:25: mouth [place] 08 every Medical other day. Branch carvediloL 2021-09 Yes 12.5mg Take 12.5 [facility] 12.5 mg 1-22 mg by ity of tablet 15:25: mouth in [place] 08 the Medical morning Branch and 12.5 mg in the evening. Take with meals. clopidogreL 2021-09 Yes 75mg Take 75 mg [facility] 75 mg -22 by mouth ity of tablet 15:25: in the [place] 08 morning. Medical Branch finasteride 2021-09 Yes 5mg Take 5 mg [facility] nivers 5 mg tablet 22 by mouth ity of 15:25: in the [place] 08 morning. Medical Branch foLIC acid 2021-09 Yes 1mg Take 1 mg Un leatha 1 mg tablet 22 by mouth ity of 15:25: in the [place] 08 morning. Medical Branch hydrALAZINE 2021-09 Yes 100mg Take 100 [facility] nivers 100 mg 1-22 mg by ity of tablet 15:25: mouth in [place] 08 the Medical morning Branch and 100 mg at noon and 100 mg in the evening. ondansetron 2021-09 Yes 4mg Take 4 mg U nivers (ZOFRAN) 4 -22 by mouth ity o f mg tablet 15:25: every 4 [place] 08 (four) Medical hours as Branch needed for Nausea and Vomiting (N/V). tamsulosin 2021-09 Yes Take by [facility] ers 0.4 mg 24 1-22 mouth at ity of hr capsule 15:25: bedtime. [place] 08 Medical Branch acetaminoph 2021-09 Yes 650mg Take 650 U nivers en 325 mg 1-22 mg by ity of Cap 15:25: mouth [place] 08 every 6 Medical (six) Branch hours as needed for Pain (scale 1-3). Cholecalcif 2021-09 Yes Take by [facility] vers jane, 1-22 mouth. ity of Vitamin D3, 15:25: [place] 125 mcg 08 Medical (5,000 Branch unit) tablet insulin 2021-09 Yes inject [facility] regular -22 under the ity of human Soln 15:25: skin [place] injection 08 before Medical meals and Branch at bedtime. atorvastati 2021-09 Yes 40mg Take 40 mg [facility] n 40 mg 1-22 by mouth ity of tablet 15:25: at [place] 08 bedtime. Medical Branch glimepiride 2021-09 Yes 2mg Take 2 mg [facility] nivers 2 mg tablet 1-22 by mouth ity of 15:25: daily with [place] 08 breakfast. Medical Branch insulin NPH 2021-09 Yes 10U inject 10 U nivers and regular 1-22 Units ity of human 70-30 15:25: under the [place] 100 unit/mL 08 skin 2 Medica l (70-30) (two) Branch injection times daily before breakfast and dinner. hydrALAZINE 2021-09 Yes 50mg Take 50 mg [facility] 50 mg 1-22 by mouth ity of tablet 15:25: every 8 [place] 08 (eight) Medical hours. Branch losartan 2021-09 Yes 100mg Take 100 [facility] ers 100 mg 1-22 mg by ity of tablet 15:25: mouth [place] 08 daily. Medical Branch amLODIPine 2021-09 Yes 10mg Take 10 mg [facility] nivers 10 mg 1-22 by mouth ity of tablet 15:25: in the [place] 08 morning. Medical Branch aspirin 81 2021-09 Yes 81mg Take 81 mg [facility] nivers mg chewable 1-22 by mouth ity of tablet 15:25: in the [place] 08 morning. Medical Branch calcitrioL 2021-09 Yes .25ug Take 0.25 U nivers 0.25 mcg 1-22 mcg by ity of capsule 15:25: mouth [place] 08 every Medical other day. Branch carvediloL 2021-09 Yes 12.5mg Take 12.5 [facility] 12.5 mg 1-22 mg by ity of tablet 15:25: mouth in [place] 08 the Medical morning Branch and 12.5 mg in the evening. Take with meals. clopidogreL 2021-09 Yes 75mg Take 75 mg [facility] 75 mg 1-22 by mouth ity of tablet 15:25: in the [place] 08 morning. Medical Branch insulin 2021-09 Yes Sliding [facility] regular 1-22 Scale ity of human 100 15:25: [place] unit/mL 08 Medical injection Branch ondansetron 2021-09 Yes 4mg Take 4 mg [facility] nivers 4 mg tablet 1-22 by mouth ity of 15:25: every 4 [place] 08 (four) Medical hours. Branch SODIUM 2021-09 Yes 650mg Take 650 [facility] s BICARBONATE 1-22 mg by ity of ORAL 15:25: mouth 2 08 (two) Medical times Branch daily. Cholecalcif 2021-09 Yes 1{tbl} Take 1 Un [place] jane, 1-22 tablet by ity of Vitamin D3, 15:25: mouth. [place] 125 mcg 08 Medical (5,000 Branch unit) tablet tamsulosin 2021-09 Yes Take by [facility] ers 0.4 mg 24 1-22 mouth ity of hr capsule 15:25: daily. Medical Branch amLODIPine 2021-09 Yes 10mg Take 10 mg [facility] nivers 10 mg 1-22 by mouth ity of tablet 15:25: in the [place] [address] morning. Medical Branch aspirin 81 2021-09 Yes 81mg Take 81 mg [facility] nivers mg chewable 1-22 by mouth ity of tablet 15:25: in the [place] [address] morning. Medical Branch atorvastati 2021-09 Yes 40mg Take 40 mg [facility] n 40 mg 1-22 by mouth ity of tablet 15:25: at [place] [address] bedtime. Medical Branch calcitrioL 2021-09 Yes .25ug Take 0.25 U nivers 0.25 mcg 1-22 mcg by ity of capsule 15:25: mouth [place] [address] every Medical other day. Branch carvediloL 2021-09 Yes 12.5mg Take 12.5 [facility] 12.5 mg 1-22 mg by ity of tablet 15:25: mouth in [place] [address] the Medical morning Branch and 12.5 mg in the evening. Take with meals. clopidogreL 2021-09 Yes 75mg Take 75 mg [facility] 75 mg 1-22 by mouth ity of tablet 15:25: in the [place] [address] morning. Medical Branch finasteride 2021-09 Yes 5mg Take 5 mg [facility] nivers 5 mg tablet 1-22 by mouth ity of 15:25: in the [place] [address] morning. Medical Branch foLIC acid 2021-09 Yes 1mg Take 1 mg Un leatha 1 mg tablet 1-22 by mouth ity of 15:25: in the [place] [address] morning. Medical Branch hydrALAZINE 2021-09 Yes 100mg Take 100 U nivers 100 mg 1-22 mg by ity of tablet 15:25: mouth in [place] [address] the Medical morning Branch and 100 mg at noon and 100 mg in the evening. ondansetron 2021-09 Yes 4mg Take 4 mg U nivers (ZOFRAN) 4 -22 by mouth ity o f mg tablet 15:25: every 4 [place] 08 (four) Medical hours as Branch needed for Nausea and Vomiting (N/V). tamsulosin 2021-09 Yes Take by [facility] ers 0.4 mg 24 1-22 mouth at ity of hr capsule 15:25: bedtime. [place] 08 Medical Branch acetaminoph 2021-09 Yes 650mg Take 650 U nivers en 325 mg 1-22 mg by ity of Cap 15:25: mouth [place] 08 every 6 Medical (six) Branch hours as needed for Pain (scale 1-3). Cholecalcif 2021-09 Yes Take by [facility] vers jane, -22 mouth. ity of Vitamin D3, 15:25: [place] 125 mcg 08 Medical (5,000 Branch unit) tablet insulin 2021-09 Yes inject [facility] regular -22 under the ity of human Soln 15:25: skin [place] injection 08 before Medical meals and Branch at bedtime. atorvastati 2021-09 Yes 40mg Take 40 mg [facility] n 40 mg -22 by mouth ity of tablet 15:25: at [place] 08 bedtime. Medical Branch glimepiride 2021-09 Yes 2mg Take 2 mg U nivers 2 mg tablet 22 by mouth ity of 15:25: daily with [place] 08 breakfast. Medical Branch insulin NPH 2021-09 Yes 10U inject 10 U nivers and regular 1-22 Units ity of human 70-30 15:25: under the [place] 100 unit/mL 08 skin 2 Medica l (70-30) (two) Branch injection times daily before breakfast and dinner. hydrALAZINE 2021-09 Yes 50mg Take 50 mg [facility] 50 mg 1-22 by mouth ity of tablet 15:25: every 8 [place] 08 (eight) Medical hours. Branch losartan 2021-09 Yes 100mg Take 100 [facility] ers 100 mg 1-22 mg by ity of tablet 15:25: mouth [place] 08 daily. Medical Branch amLODIPine 2021-09 Yes 10mg Take 10 mg U nivers 10 mg 1-22 by mouth ity of tablet 15:25: in the [place] 08 morning. Medical Branch aspirin 81 2021-09 Yes 81mg Take 81 mg [facility] nivers mg chewable 1-22 by mouth ity of tablet 15:25: in the [place] 08 morning. Medical Branch calcitrioL 2021-09 Yes .25ug Take 0.25 U nivers 0.25 mcg 1-22 mcg by ity of capsule 15:25: mouth [place] 08 every Medical other day. Branch carvediloL 2021-09 Yes 12.5mg Take 12.5 [facility] 12.5 mg 1-22 mg by ity of tablet 15:25: mouth in [place] 08 the Medical morning Branch and 12.5 mg in the evening. Take with meals. clopidogreL 2021-09 Yes 75mg Take 75 mg [facility] 75 mg 1-22 by mouth ity of tablet 15:25: in the [place] [address] morning. Medical Branch insulin 2021-09 Yes Sliding [facility] regular 1-22 Scale ity of human 100 15:25: [place] unit/mL 08 Medical injection Branch ondansetron 2021-09 Yes 4mg Take 4 mg U nivers 4 mg tablet -22 by mouth ity of 15:25: every 4 [place] [address] (four) Medical hours. Branch SODIUM 2021-09 Yes 650mg Take 650 Un[facility] s BICARBONATE 1-22 mg by ity of ORAL 15:25: mouth 2 [place] [address] (two) Medical times Branch daily. Cholecalcif 2021-09 Yes 1{tbl} Take 1 Un [place] jane, 1-22 tablet by ity of Vitamin D3, 15:25: mouth. [place] 125 mcg Medical (5,000 Branch unit) tablet tamsulosin 2021-09 Yes Take by [facility] vers 0.4 mg 24 1-22 mouth ity of hr capsule 15:25: daily. [place] [address] Medical Branch amLODIPine 2021-09 Yes 10mg Take 10 mg U nivers 10 mg 1-22 by mouth ity of tablet 15:25: in the [place] [address] morning. Medical Branch aspirin 81 2021-09 Yes 81mg Take 81 mg U nivers mg chewable 1-22 by mouth ity of tablet 15:25: in the [place] [address] morning. Medical Branch atorvastati 2021-09 Yes 40mg Take 40 mg [facility] n 40 mg 1-22 by mouth ity of tablet 15:25: at [place] [address] bedtime. Medical Branch calcitrioL 2021-09 Yes .25ug Take 0.25 U nivers 0.25 mcg 1-22 mcg by ity of capsule 15:25: mouth [place] 08 every Medical other day. Branch carvediloL 2021-09 Yes 12.5mg Take 12.5 [facility] 12.5 mg 1-22 mg by ity of tablet 15:25: mouth in [place] 08 the Medical morning Branch and 12.5 mg in the evening. Take with meals. clopidogreL 2021-09 Yes 75mg Take 75 mg [facility] 75 mg -22 by mouth ity of tablet 15:25: in the [place] 08 morning. Medical Branch finasteride 2021-09 Yes 5mg Take 5 mg U nivers 5 mg tablet -22 by mouth ity of 15:25: in the [place] 08 morning. Medical Branch foLIC acid 2021-09 Yes 1mg Take 1 mg Un leatha 1 mg tablet 22 by mouth ity of 15:25: in the [place] 08 morning. Medical Branch hydrALAZINE 2021-09 Yes 100mg Take 100 U nivers 100 mg 1-22 mg by ity of tablet 15:25: mouth in [place] 08 the Medical morning Branch and 100 mg at noon and 100 mg in the evening. ondansetron 2021-09 Yes 4mg Take 4 mg U nivers (ZOFRAN) 4 -22 by mouth ity o f mg tablet 15:25: every 4 [place] [address] (four) Medical hours as Branch needed for Nausea and Vomiting (N/V). tamsulosin 2021-09 Yes Take by [facility] ers 0.4 mg 24 -22 mouth at ity of hr capsule 15:25: bedtime. [place] as 08 Medical Branch acetaminoph 2021-09 Yes 650mg Take 650 U nivers en 325 mg 1-22 mg by ity of Cap 15:25: mouth [place] 08 every 6 Medical (six) Branch hours as needed for Pain (scale 1-3). Cholecalcif 2021-09 Yes Take by [facility] vers jane, -22 mouth. ity of Vitamin D3, 15:25: [place] 125 mcg 08 Medical (5,000 Branch unit) tablet insulin 2021-09 Yes inject [facility] regular -22 under the ity of human Soln 15:25: skin [place] injection 08 before Medical meals and Branch at bedtime. atorvastati 2021-09 Yes 40mg Take 40 mg [facility] n 40 mg -22 by mouth ity of tablet 15:25: at [place] 08 bedtime. Medical Branch glimepiride 2021-09 Yes 2mg Take 2 mg U nivers 2 mg tablet 1-22 by mouth ity of 15:25: daily with [place] [address] breakfast. Medical Branch insulin NPH 2021-09 Yes 10U inject 10 U nivers and regular 1-22 Units ity of human 70-30 15:25: under the [place] 100 unit/mL 08 skin 2 Medica l (70-30) (two) Branch injection times daily before breakfast and dinner. hydrALAZINE 2021-09 Yes 50mg Take 50 mg [facility] 50 mg 1-22 by mouth ity of tablet 15:25: every 8 [place] 08 (eight) Medical hours. Branch losartan 2021-09 Yes 100mg Take 100 [facility] ers 100 mg 1-22 mg by ity of tablet 15:25: mouth [place] 08 daily. Medical Branch amLODIPine 2021-09 Yes 10mg Take 10 mg U nivers 10 mg 1-22 by mouth ity of tablet 15:25: in the [place] 08 morning. Medical Branch aspirin 81 2021-09 Yes 81mg Take 81 mg U nivers mg chewable 1-22 by mouth ity of tablet 15:25: in the [place] 08 morning. Medical Branch calcitrioL 2021-09 Yes .25ug Take 0.25 U nivers 0.25 mcg 1-22 mcg by ity of capsule 15:25: mouth [place] 08 every Medical other day. Branch carvediloL 2021-09 Yes 12.5mg Take 12.5 [facility] 12.5 mg 1-22 mg by ity of tablet 15:25: mouth in [place] 08 the Medical morning Branch and 12.5 mg in the evening. Take with meals. clopidogreL 2021-09 Yes 75mg Take 75 mg [facility] 75 mg 1-22 by mouth ity of tablet 15:25: in the [place] 08 morning. Medical Branch insulin 2021-09 Yes Sliding [facility] regular 1-22 Scale ity of human 100 15:25: [place] unit/mL 08 Medical injection Branch ondansetron 2021-09 Yes 4mg Take 4 mg U nivers 4 mg tablet 1-22 by mouth ity of 15:25: every 4 [place] 08 (four) Medical hours. Branch SODIUM 2021-09 Yes 650mg Take 650 [facility] s BICARBONATE 1-22 mg by ity of ORAL 15:25: mouth 2 [place] [address] (two) Medical times Branch daily. Cholecalcif 2021-09 Yes 1{tbl} Take 1 Un [place], 1-22 tablet by ity of Vitamin D3, 15:25: mouth. [place] 125 mcg 08 Medical (5,000 Branch unit) tablet tamsulosin 2021-09 Yes Take by [facility] ers 0.4 mg 24 1-22 mouth ity of hr capsule 15:25: daily. [place] [address] Medical Branch amLODIPine 2021-09 Yes 10mg Take 10 mg U nivers 10 mg 1-22 by mouth ity of tablet 15:25: in the [place] [address] morning. Medical Branch aspirin 81 2021-09 Yes 81mg Take 81 mg [facility] nivers mg chewable 1-22 by mouth ity of tablet 15:25: in the [place] [address] morning. Medical Branch atorvastati 2021-09 Yes 40mg Take 40 mg [facility] n 40 mg 1-22 by mouth ity of tablet 15:25: at [place] [address] bedtime. Medical Branch calcitrioL 2021-09 Yes .25ug Take 0.25 U nivers 0.25 mcg 1-22 mcg by ity of capsule 15:25: mouth [place] [address] every Medical other day. Branch carvediloL 2021-09 Yes 12.5mg Take 12.5 [facility] 12.5 mg 1-22 mg by ity of tablet 15:25: mouth in [place] [address] the Medical morning Branch and 12.5 mg in the evening. Take with meals. clopidogreL 2021-09 Yes 75mg Take 75 mg [facility] 75 mg 1-22 by mouth ity of tablet 15:25: in the [place] [address] morning. Medical Branch finasteride 2021-09 Yes 5mg Take 5 mg U nivers 5 mg tablet 1-22 by mouth ity of 15:25: in the [place] [address] morning. Medical Branch foLIC acid 2021-09 Yes 1mg Take 1 mg Un leatha 1 mg tablet 1-22 by mouth ity of 15:25: in the [place] [address] morning. Medical Branch hydrALAZINE 2021-09 Yes 100mg Take 100 U nivers 100 mg 1-22 mg by ity of tablet 15:25: mouth in [place] [address] the Medical morning Branch and 100 mg at noon and 100 mg in the evening. ondansetron 2021-09 Yes 4mg Take 4 mg U nivers (ZOFRAN) 4 -22 by mouth ity o f mg tablet 15:25: every 4 [place] 08 (four) Medical hours as Branch needed for Nausea and Vomiting (N/V). tamsulosin 2021-09 Yes Take by [facility] ers 0.4 mg 24 1-22 mouth at ity of hr capsule 15:25: bedtime. [place] 08 Medical Branch acetaminoph 2021-09 Yes 650mg Take 650 U nivers en 325 mg 1-22 mg by ity of Cap 15:25: mouth [place] 08 every 6 Medical (six) Branch hours as needed for Pain (scale 1-3). Cholecalcif 2021-09 Yes Take by [facility] vers jane, -22 mouth. ity of Vitamin D3, 15:25: [place] 125 mcg 08 Medical (5,000 Branch unit) tablet insulin 2021-09 Yes inject [facility] regular -22 under the ity of human Soln 15:25: skin [place] injection 08 before Medical meals and Branch at bedtime. atorvastati 2021-09 Yes 40mg Take 40 mg [facility] n 40 mg -22 by mouth ity of tablet 15:25: at [place] 08 bedtime. Medical Branch glimepiride 2021-09 Yes 2mg Take 2 mg U nivers 2 mg tablet -22 by mouth ity of 15:25: daily with [place] 08 breakfast. Medical Branch insulin NPH 2021-09 Yes 10U inject 10 U nivers and regular 1-22 Units ity of human 70-30 15:25: under the [place] 100 unit/mL 08 skin 2 Medica l (70-30) (two) Branch injection times daily before breakfast and dinner. hydrALAZINE 2021-09 Yes 50mg Take 50 mg [facility] 50 mg 1-22 by mouth ity of tablet 15:25: every 8 [place] 08 (eight) Medical hours. Branch losartan 2021-09 Yes 100mg Take 100 [facility] ers 100 mg 1-22 mg by ity of tablet 15:25: mouth [place] 08 daily. Medical Branch amLODIPine 2021-09 Yes 10mg Take 10 mg U nivers 10 mg 1-22 by mouth ity of tablet 15:25: in the [place] 08 morning. Medical Branch aspirin 81 2021-09 Yes 81mg Take 81 mg U nivers mg chewable -22 by mouth ity of tablet 15:25: in the [place] [address] morning. Medical Branch calcitrioL 2021-09 Yes .25ug Take 0.25 U nivers 0.25 mcg 1-22 mcg by ity of capsule 15:25: mouth every Medical other day. Branch carvediloL 2021-09 Yes 12.5mg Take 12.5 [facility] 12.5 mg 1-22 mg by ity of tablet 15:25: mouth in [place] 08 the Medical morning Branch and 12.5 mg in the evening. Take with meals. clopidogreL 2021-09 Yes 75mg Take 75 mg [facility] 75 mg 1-22 by mouth ity of tablet 15:25: in the [place] 08 morning. Medical Branch insulin 2021-09 Yes Sliding [facility] regular 1-22 Scale ity of human 100 15:25: [place] unit/mL 08 Medical injection Branch ondansetron 2021-09 Yes 4mg Take 4 mg U nivers 4 mg tablet -22 by mouth ity of 15:25: every 4 [place] [address] (four) Medical hours. Branch SODIUM 2021-09 Yes 650mg Take 650 Un[facility] s BICARBONATE 1-22 mg by ity of ORAL 15:25: mouth 2 [place] 08 (two) Medical times Branch daily. Cholecalcif 2021-09 Yes 1{tbl} Take 1 Un [place], 1-22 tablet by ity of Vitamin D3, 15:25: mouth. [place] 125 mcg 08 Medical (5,000 Branch unit) tablet tamsulosin 2021-09 Yes Take by [facility] ers 0.4 mg 24 1-22 mouth ity of hr capsule 15:25: daily. [place] [address] Medical Branch amLODIPine 2021-09 Yes 10mg Take 10 mg [facility] nivers 10 mg 1-22 by mouth ity of tablet 15:25: in the [place] [address] morning. Medical Branch aspirin 81 2021-09 Yes 81mg Take 81 mg [facility] nivers mg chewable 1-22 by mouth ity of tablet 15:25: in the [place] 08 morning. Medical Branch atorvastati 2021-09 Yes 40mg Take 40 mg [facility] n 40 mg 1-22 by mouth ity of tablet 15:25: at [place] [address] bedtime. Medical Branch calcitrioL 2021-09 Yes .25ug Take 0.25 U nivers 0.25 mcg 1-22 mcg by ity of capsule 15:25: mouth [place] 08 every Medical other day. Branch carvediloL 2021-09 Yes 12.5mg Take 12.5 [facility] 12.5 mg 1-22 mg by ity of tablet 15:25: mouth in [place] 08 the Medical morning Branch and 12.5 mg in the evening. Take with meals. clopidogreL 2021-09 Yes 75mg Take 75 mg [facility] 75 mg -22 by mouth ity of tablet 15:25: in the [place] 08 morning. Medical Branch finasteride 2021-09 Yes 5mg Take 5 mg U nivers 5 mg tablet -22 by mouth ity of 15:25: in the [place] 08 morning. Medical Branch foLIC acid 2021-09 Yes 1mg Take 1 mg Un leatha 1 mg tablet -22 by mouth ity of 15:25: in the [place] 08 morning. Medical Branch hydrALAZINE 2021-09 Yes 100mg Take 100 U nivers 100 mg 1-22 mg by ity of tablet 15:25: mouth in [place] 08 the Medical morning Branch and 100 mg at noon and 100 mg in the evening. ondansetron 2021-09 Yes 4mg Take 4 mg U nivers (ZOFRAN) 4 -22 by mouth ity o f mg tablet 15:25: every 4 [place] 08 (four) Medical hours as Branch needed for Nausea and Vomiting (N/V). tamsulosin 2021-09 Yes Take by [facility] ers 0.4 mg 24 -22 mouth at ity of hr capsule 15:25: bedtime. [place] 08 Medical Branch acetaminoph 2021-09 Yes 650mg Take 650 U nivers en 325 mg 1-22 mg by ity of Cap 15:25: mouth [place] 08 every 6 Medical (six) Branch hours as needed for Pain (scale 1-3). Cholecalcif 2021-09 Yes Take by [facility] vers jane, -22 mouth. ity of Vitamin D3, 15:25: [place] 125 mcg 08 Medical (5,000 Branch unit) tablet insulin 2021-09 Yes inject [facility] regular -22 under the ity of human Soln 15:25: skin [place] injection 08 before Medical meals and Branch at bedtime. insulin NPH 2021-09 Yes 10U inject 10 U nivers and regular 1-22 Units ity of human 70-30 15:25: under the [place] 100 unit/mL 08 skin 2 Medica l (70-30) (two) Branch injection times daily before breakfast and dinner. carvediloL 2021-09 Yes 12.5mg Take 12.5 Univers 12.5 mg 1-22 mg by ity of tablet 15:25: mouth in [place] 08 the Medical morning Branch and 12.5 mg in the evening. Take with meals. clopidogreL 2021-09 Yes 75mg Take 75 mg Univers 75 mg 1-22 by mouth ity of tablet 15:25: in the [place] [address] morning. Medical Branch tamsulosin 2021-09 Yes Take by Univ ers 0.4 mg 24 1-22 mouth ity of hr capsule 15:25: daily. [place] [address] Medical Branch amLODIPine 2021-09 Yes 10mg Take 10 mg U nivers 10 mg 1-22 by mouth ity of tablet 15:25: in the [place] [address] morning. Medical Branch aspirin 81 2021-09 Yes 81mg Take 81 mg U nivers mg chewable 1-22 by mouth ity of tablet 15:25: in the [place] [address] morning. Medical Branch atorvastati 2021-09 Yes 40mg Take 40 mg Univers n 40 mg -22 by mouth ity of tablet 15:25: at [place] [address] bedtime. Medical Branch calcitrioL 2021-09 Yes .25ug Take 0.25 U nivers 0.25 mcg 1-22 mcg by ity of capsule 15:25: mouth [place] 08 every Medical other day. Branch Cholecalcif 2021-09 Yes Take by Uni vers jane, 1-22 mouth. ity of Vitamin D3, 15:25: [place] 125 mcg 08 Medical (5,000 Branch unit) tablet insulin NPH 2021-09 Yes 10U inject 10 U nivers and regular 1-22 Units ity of human 70-30 15:25: under the [place] 100 unit/mL 08 skin 2 Medica l (70-30) (two) Branch injection times daily before breakfast and dinner. carvediloL 2021-09 Yes 12.5mg Take 12.5 Univers 12.5 mg 1-22 mg by ity of tablet 15:25: mouth in [place] 08 the Medical morning Branch and 12.5 mg in the evening. Take with meals. clopidogreL 2021-09 Yes 75mg Take 75 mg Univers 75 mg 1-22 by mouth ity of tablet 15:25: in the [place] [address] morning. Medical Branch tamsulosin 2021-09 Yes Take by [facility] ers 0.4 mg 24 1-22 mouth ity of hr capsule 15:25: daily. Medical Branch amLODIPine 2021-09 Yes 10mg Take 10 mg U nivers 10 mg 1-22 by mouth ity of tablet 15:25: in the [place] [address] morning. Medical Branch aspirin 81 2021-09 Yes 81mg Take 81 mg U nivers mg chewable 1-22 by mouth ity of tablet 15:25: in the [place] [address] morning. Medical Branch atorvastati 2021-09 Yes 40mg Take 40 mg Univers n 40 mg 1-22 by mouth ity of tablet 15:25: at [place] [address] bedtime. Medical Branch calcitrioL 2021-09 Yes .25ug Take 0.25 U nivers 0.25 mcg 1-22 mcg by ity of capsule 15:25: mouth [place] 08 every Medical other day. Branch Cholecalcif 2021-09 Yes Take by Uni vers jane, 1-22 mouth. ity of Vitamin D3, 15:25: [place] 125 mcg 08 Medical (5,000 Branch unit) tablet insulin NPH 2021-09 Yes 10U inject 10 U nivers and regular 1-22 Units ity of human 70-30 15:25: under the [place] 100 unit/mL 08 skin 2 Medica l (70-30) (two) Branch injection times daily before breakfast and dinner. carvediloL 2021-09 Yes 12.5mg Take 12.5 Univers 12.5 mg 1-22 mg by ity of tablet 15:25: mouth in [place] [address] the Medical morning Branch and 12.5 mg in the evening. Take with meals. clopidogreL 2021-09 Yes 75mg Take 75 mg Univers 75 mg 1-22 by mouth ity of tablet 15:25: in the [place] [address] morning. Medical Branch tamsulosin 2021-09 Yes Take by [facility] ers 0.4 mg 24 1-22 mouth ity of hr capsule 15:25: daily. [place] [address] Medical Branch amLODIPine 2021-09 Yes 10mg Take 10 mg U nivers 10 mg 1-22 by mouth ity of tablet 15:25: in the [place] [address] morning. Medical Branch aspirin 81 2021-09 Yes 81mg Take 81 mg U nivers mg chewable 1-22 by mouth ity of tablet 15:25: in the [place] 08 morning. Medical Branch atorvastati 2021-09 Yes 40mg Take 40 mg Univers n 40 mg 1-22 by mouth ity of tablet 15:25: at [place] 08 bedtime. Medical Branch calcitrioL 2021-09 Yes .25ug Take 0.25 U nivers 0.25 mcg 1-22 mcg by ity of capsule 15:25: mouth [place] 08 every Medical other day. Branch Cholecalcif 2021-09 Yes Take by Uni vers jane, 1-22 mouth. ity of Vitamin D3, 15:25: [place] 125 mcg 08 Medical (5,000 Branch unit) tablet atorvastati 2021-09 Yes 40mg Take 40 mg Univers n 40 mg 1-22 by mouth ity of tablet 15:25: at [place] 08 bedtime. Medical Branch glimepiride 2021-09 Yes 2mg Take 2 mg U nivers 2 mg tablet -22 by mouth ity of 15:25: daily with [place] 08 breakfast. Medical Branch insulin NPH 2021-09 Yes 10U inject 10 U nivers and regular 1-22 Units ity of human 70-30 15:25: under the [place] 100 unit/mL 08 skin 2 Medica l (70-30) (two) Branch injection times daily before breakfast and dinner. hydrALAZINE 2021-09 Yes 50mg Take 50 mg Univers 50 mg 1-22 by mouth ity of tablet 15:25: every 8 [place] 08 (eight) Medical hours. Branch losartan 2021-09 Yes 100mg Take 100 Univ ers 100 mg 1-22 mg by ity of tablet 15:25: mouth [place] 08 daily. Medical Branch amLODIPine 2021-09 Yes 10mg Take 10 mg U nivers 10 mg 1-22 by mouth ity of tablet 15:25: in the [place] 08 morning. Medical Branch aspirin 81 2021-09 Yes 81mg Take 81 mg U nivers mg chewable 1-22 by mouth ity of tablet 15:25: in the [place] 08 morning. Medical Branch calcitrioL 2021-09 Yes .25ug Take 0.25 U nivers 0.25 mcg 1-22 mcg by ity of capsule 15:25: mouth [place] 08 every Medical other day. Branch carvediloL 2021-09 Yes 12.5mg Take 12.5 Univers 12.5 mg 1-22 mg by ity of tablet 15:25: mouth in [place] 08 the Medical morning Branch and 12.5 mg in the evening. Take with meals. clopidogreL 2021-09 Yes 75mg Take 75 mg Univers 75 mg 1-22 by mouth ity of tablet 15:25: in the [place] 08 morning. Medical Branch insulin 2021-09 Yes Sliding Univers regular 1-22 Scale ity of human 100 15:25: [place] unit/mL 08 Medical injection Branch ondansetron 2021-09 Yes 4mg Take 4 mg U nivers 4 mg tablet 1-22 by mouth ity of 15:25: every 4 [place] [address] (four) Medical hours. Branch SODIUM 2021-09 Yes 650mg Take 650 Univer s BICARBONATE 1-22 mg by ity of ORAL 15:25: mouth 2 [place] [address] (two) Medical times Branch daily. Cholecalcif 2021-09 Yes 1{tbl} Take 1 Un leatha jane, 1-22 tablet by ity of Vitamin D3, 15:25: mouth. [place] 125 mcg 08 Medical (5,000 Branch unit) tablet amLODIPine 2021-09 Yes 10mg Take 10 mg U nivers 10 mg 1-16 by mouth ity of tablet 08:08: in the [place] [address] morning. Medical Branch aspirin 81 2021-09 Yes 81mg Take 81 mg U nivers mg chewable 1-16 by mouth ity of tablet 08:08: in the [place] 59 morning. Medical Branch atorvastati 2021-09 Yes 40mg Take 40 mg Univers n (LIPITOR) 1-16 by mouth ity of 40 mg 08:08: at [place] tablet 59 bedtime. Medical Branch calcitrioL 2021-09 Yes .25ug Take 0.25 U nivers 0.25 mcg 1-16 mcg by ity of capsule 08:08: mouth [place] 59 every Medical other day. Branch carvediloL 2021-09 Yes 12.5mg Take 12.5 Univers (COREG) 1-16 mg by ity of 12.5 mg 08:08: mouth in [place] tablet 59 the Medical morning Branch and 12.5 mg in the evening. Take with meals. clopidogreL 2021-09 Yes 75mg Take 75 mg Univers (PLAVIX) 75 1-16 by mouth ity of mg tablet 08:08: in the [place] 59 morning. Medical Branch finasteride 2021-09 Yes 5mg Take 5 mg U nivers 5 mg tablet 1-16 by mouth ity of 08:08: in the [place] 59 morning. Medical Branch foLIC acid 2021-09 Yes 1mg Take 1 mg Un leatha 1 mg tablet 1-16 by mouth ity of 08:08: in the [place] 59 morning. Medical Branch hydrALAZINE 2021-09 Yes 100mg Take 100 U nivers 100 mg 1-16 mg by ity of tablet 08:08: mouth in [place] 59 the Medical morning Branch and 100 mg at noon and 100 mg in the evening. ondansetron 2021-09 Yes 4mg Take 4 mg U nivers (ZOFRAN) 4 1-16 by mouth ity o f mg tablet 08:08: every 4 [place] [address] (four) Medical hours as Branch needed for Nausea and Vomiting (N/V). tamsulosin 2021-09 Yes Take by [facility] ers (FLOMAX) 1-16 mouth at ity of 0.4 mg 24 08:08: [place]time. [place] hr capsule 59 Medical Branch acetaminoph 2021-09 Yes 650mg Take 650 U nivers en 1-16 mg by ity of (TYLENOL) 08:08: mouth [place] 325 mg Cap 59 every 6 Medica l (six) Branch hours as needed for Pain (scale 1-3). Cholecalcif 2021-09 Yes Take by Uni vers jane, 1-16 mouth. ity of Vitamin D3, 08:08: [place] (VITAMIN 59 Medical D3) 125 mcg Branch (5,000 unit) tablet levothyroxi 2021-09- No [id number] 25ug Take 1 Univers ne 25 mcg -08-21 [id number] tablet by it y of tablet 00:00: 05:59 mouth [place] 00 :00 every Medical morning Branch for 30 days. levothyroxi 2021-09- No [id number] 25ug Take 1 Univers ne 25 mcg -08-21 [id number] tablet by it y of tablet 00:00: 05:59 mouth [place] 00 :00 every Medical morning Branch for 30 days. levothyroxi 2021-09- No [id number] 25ug Take 1 Univers ne 25 mcg -08-21 [id number] tablet by it y of tablet 00:00: 05:59 mouth [place] 00 :00 every Medical morning Branch for 30 days. levothyroxi 2021-09- No [id number] 25ug Take 1 Univers ne 25 mcg 09-20 [id number] tablet by it y of tablet 00:00: 05:59 mouth [place] 00 :00 every Medical morning Branch for 30 days. levothyroxi 2021-09- No [id number] 25ug Take 1 Univers ne 25 mcg 09-20 [id number] tablet by it y of tablet 00:00: 05:59 mouth [place] 00 :00 every Medical morning Branch for 30 days. levothyroxi 2021-09- No [id number] 25ug Take 1 Univers ne 25 mcg 09-20 [id number] tablet by it y of tablet 00:00: 05:59 mouth [place] 00 :00 every Medical morning Branch for 30 days. levothyroxi 2021-09- No [id number] 25ug Take 1 Univers ne 25 mcg 09-20 [id number] tablet by it y of tablet 00:00: 05:59 mouth [place] 00 :00 every Medical morning Branch for 30 days. levothyroxi 2021-09- No [id number] 25ug Take 1 Univers ne 25 mcg 09-20 [id number] tablet by it y of tablet 00:00: 05:59 mouth [place] 00 :00 every Medical morning Branch for 30 days. ciprofloxac 2021-09- No [id number] 250mg Take 1 Univers in HCl 250 09-20 [id number] tablet by i ty of mg tablet 00:00: 05:59 mouth in [place] 00 :00 the Medical morning Branch for 7 days. ciprofloxac 2021-09- No [id number] 250mg Take 1 Univers in HCl 250 09-20 [id number] tablet by i ty of mg tablet 00:00: 05:59 mouth in [place] 00 :00 the Medical morning Branch for 7 days. ciprofloxac 2021-09- No [id number] 250mg Take 1 Univers in HCl 250 09-20 [id number] tablet by i ty of mg tablet 00:00: 05:59 mouth in [place] 00 :00 the Medical morning Branch for 7 days. ciprofloxac 2021-09- No [id number] 250mg Take 1 Univers in HCl 250 09-20 [id number] tablet by i ty of mg tablet 00:00: 05:59 mouth in [place] 00 :00 the Medical morning Branch for 7 days. ciprofloxac 2021-09- No [id number] 250mg Take 1 Univers in HCl 250 09-20 [id number] tablet by i ty of mg tablet 00:00: 05:59 mouth in [place] 00 :00 the Medical morning Branch for 7 days. ciprofloxac 2021-09- No 250mg 250 mg, U nivers in HCl 1-15 07-25 Oral, ity of (CIPRO) 18:45: 14:59 DAILY, 5 [place] tablet 250 00 :00 doses, Medical mg First dose Branch on Tue07/20/22 at 1245, Last dose on Tue07/24/22 at 0900, SAL
Re ason for Anti-Infec tive: Empiric Therapy for Suspected Infection< br>Empiric Therapy Site: Urine
D uration of therapy: 72 hours amLODIPine 2021-09 Yes 10mg Take 10 mg U nivers 10 mg 1-15 by mouth ity of tablet 17:19: in the [place] [address] morning. Medical Branch aspirin 81 2021-09 Yes 81mg Take 81 mg U nivers mg chewable 1-15 by mouth ity of tablet 17:19: in the [place] [address] morning. Medical Branch atorvastati 2021-09 Yes 40mg Take 40 mg Univers n (LIPITOR) 1-15 by mouth ity of 40 mg 17:19: at [place] [address] bedtime. Medical Branch calcitrioL 2021-09 Yes .25ug Take 0.25 U nivers 0.25 mcg 1-15 mcg by ity of capsule 17:19: mouth [place] [address] every Medical other day. Branch carvediloL 2021-09 Yes 12.5mg Take 12.5 Univers (COREG) 1-15 mg by ity of 12.5 mg 17:19: mouth in [place] [address] the Medical morning Branch and 12.5 mg in the evening. Take with meals. clopidogreL 2021-09 Yes 75mg Take 75 mg Univers (PLAVIX) 75 1-15 by mouth ity of mg tablet 17:19: in the [place] [address] morning. Medical Branch finasteride 2021-09 Yes 5mg Take 5 mg U nivers 5 mg tablet 1-15 by mouth ity of 17:19: in the [place] [address] morning. Medical Branch foLIC acid 2021-09 Yes 1mg Take 1 mg Un leatha 1 mg tablet 1-15 by mouth ity of 17:19: in the [place] [address] morning. [facility] Branch hydrALAZINE 2021-09 Yes 100mg Take 100 U nivers 100 mg 1-15 mg by ity of tablet 17:19: mouth in [place] [address] the [facility] morning Branch and 100 mg at noon and 100 mg in the evening. ondansetron 2021-09 Yes 4mg Take 4 mg U nivers (ZOFRAN) 4 1-15 by mouth ity o f mg tablet 17:19: every 4 [place] [address] (four) Medical hours as Branch needed for Nausea and Vomiting (N/V). tamsulosin 2021-09 Yes Take by Univ ers (FLOMAX) 1-15 mouth at ity of 0.4 mg 24 17:19: bedtime. [place] hr capsule [address] [place] [address] Branch acetaminoph 2021-09 Yes 650mg Take 650 U nivers en 1-15 mg by ity of (TYLENOL) 17:19: mouth [place] 325 mg Cap every 6 Medica l (six) Branch hours as needed for Pain (scale 1-3). Cholecalcif 2021-09 Yes Take by Uni vers jane, 1-15 mouth. ity of Vitamin D3, 17:19: [place] (VITAMIN [address] [place] [address] D3) 125 mcg [place] (5,000 unit) tablet cefUROXime 2021-09- No 250mg Take 250 U nivers 250 mg 1-15 11-15 mg by ity of tablet 14:45: 00:00 mouth in [place] 57 :00 the Medical morning Branch and 250 mg in the evening. lactulose 2021-09 Yes 15mL 15 mL, Univer s (CEPHULAC) 1-15 Oral, ity of solution 15 12:05: BIDPRN, [place] mL 02 Starting Medical on Tue Branch 07/20/22 at 0605, Until Discontinu ed, Routine, Constipati on morpHINE (2 2021-09 Yes 2mg 2 mg, Slow Univers mg/mL) 1-15 IV Push, ity of injection 2 12:04: Q4HPRN, [place] mg 00 Starting Medical on e Branch 07/20/22 at 0604, Until Discontinu ed, Routine, Pain (scale 7-10) docusate 2021-09- No [id number] 100mg Take 1 Univers 100 mg 1-15 12-16 [id number] capsule by ity of capsule 00:00: 05:59 mouth in [place] 00 :00 the Medical morning Branch and 1 capsule in the evening. Do all this for 30 days. docusate 2021-09- No [id number] 100mg Take 1 Univers 100 mg 1-15 -16 [id number] capsule by ity of capsule 00:00: 05:59 mouth in [place] 00 :00 the Medical morning Branch and 1 capsule in the evening. Do all this for 30 days. docusate 2021-09- No [id number] 100mg Take 1 Univers 100 mg -15 -16 [id number] capsule by ity of capsule 00:00: 05:59 mouth in [place] 00 :00 the [facility] morning [place] and 1 capsule in the evening. Do all this for 30 days. docusate 2021-09- No [id number] 100mg Take 1 Univers 100 mg -15 -16 [id number] capsule by ity of capsule 00:00: 05:59 mouth in [place] 00 :00 the [facility] morning Branch and 1 capsule in the evening. Do all this for 30 days. docusate 2021-09- No [id number] 100mg Take 1 Univers 100 mg -15 -16 [id number] capsule by ity of capsule 00:00: 05:59 mouth in [place] 00 :00 the [facility] morning Branch and 1 capsule in the evening. Do all this for 30 days. docusate 2021-09- No [id number] 100mg Take 1 Univers 100 mg -15 -16 [id number] capsule by ity of capsule 00:00: 05:59 mouth in [place] 00 :00 the [facility] morning Branch and 1 capsule in the evening. Do all this for 30 days. docusate 2021-09- No [id number] 100mg Take 1 Univers 100 mg 1-15 -16 [id number] capsule by ity of capsule 00:00: 05:59 mouth in [place] 00 :00 the [facility] morning Branch and 1 capsule in the evening. Do all this for 30 days. docusate 2021-09- No [id number] 100mg Take 1 Univers 100 mg 09-19 [id number] capsule by ity of capsule 00:00: 05:59 mouth in [place] 00 :00 the Medical morning Branch and 1 capsule in the evening. Do all this for 30 days. levothyroxi 2021-09 Yes 25ug 25 mcg, Uni vers ne -12 Oral, ity of (SYNTHROID) 19:15: QAM-0600, [place] tablet 25 00 First dose Medi vick mcg on [facility] Branch 07/17/22 at 1315, Until Discontinu ed, Routine furosemide 2021-09 No 40mg 40 mg, Univ ers (LASIX) 11 1112 Slow IV ity of injection 02:00: 13:51 Push, [place] 40 mg 00 :20 Q12H, Medical First dose Branch on [facility] 07/15/22 at 2000, Until Discontinu ed, Routine furosemide 2021-09 Yes 40mg 40 mg, Unive rs (LASIX) 1-10 Slow IV ity of injection 23:00: Push, [place] 40 mg 00 QAM+PM, Medical First dose Branch (after last modificati on) on [facility] 07/15/22 at 1700, Until Discontinu ed, Routine amLODIPine 2021-09 Yes 10mg 10 mg, Unive rs (NORVASC) 1-10 Oral, ity of tablet 10 15:00: DAILY, [place] mg 00 First dose Medical on [facility] Branch 07/15/22 at 0900, Until Discontinu ed, Routine foLIC acid 2021-09 Yes 1mg 1 mg, Univer s (FOLATE) 1-10 Oral, ity of tablet 1 mg 15:00: DAILY, [place] 00 First dose Medical on [facility] Branch 07/15/22 at 0900, Until Discontinu ed, Routine finasteride 2021-09 Yes 5mg 5 mg, Unive rs (PROSCAR) 1-10 Oral, ity of tablet 5 mg 15:00: DAILY, [place] 00 First dose Medical on [facility] Branch 07/15/22 at 0900, Until Discontinu ed, Routine clopidogreL 2021-09 Yes 75mg 75 mg, Univ ers (PLAVIX) 75 1-10 Oral, ity of mg tablet 15:00: DAILY, [place] 75 mg 00 First dose Medical on [facility] Branch 07/15/22 at 0900, Until Discontinu ed, Routine aspirin 2021-09 Yes 81mg 81 mg, Univers chewable 1-10 Oral, ity of tablet 81 15:00: DAILY, [place] mg 00 First dose Medical on [facility] Branch 07/15/22 at 0900, Until Discontinu ed, Routine hydrALAZINE 2021-09 Yes 100mg 100 mg, Un leatha (APRESOLINE 1-10 Oral, TID, it y of ) tablet 14:00: First dose [place] 100 mg 00 on [facility] 07/15/22 Branch at 0800, Until Discontinu ed, Routine carvediloL 2021-09 Yes 12.5mg 12.5 mg, U nivers (COREG) 1-10 Oral, BID ity of tablet 12.5 14:00: MEALS, [place] mg 00 First dose Medical on [facility] 07/15/22 at 0800, Until Discontinu ed, Routine Sliding 2021-09 Yes Subcutaneo Univ ers Scale 1-10 us, AC+HS, ity of Insulin-Reg 03:00: First dose [place] ular + Fsbg 00 on Tue Medica l Testing 07/14/22 at Branch 2100, Until Discontinu ed, Routine tamsulosin 2021-09 Yes .4mg 0.4 mg, Univ ers (FLOMAX) 1-10 Oral, QHS, ity o f capsule 0.4 03:00: First dose [place] mg 00 on [facility] 07/14/22 at Branch 2100, Until Discontinu ed, Routine atorvastati 2021-09 Yes 40mg 40 mg, Univ ers n (LIPITOR) 1-10 Oral, QHS, it y of tablet 40 03:00: First dose [place] mg 00 on [facility] Medical 07/14/22 at Branch 2100, Until Discontinu ed, Routine furosemide 2021-09 No 20mg 20 mg, Univ ers (LASIX) 1-10 11-10 Slow IV ity of injection 02:45: 15:13 Push, [place] 20 mg 00 :05 DAILY, Medical First dose Branch on Tue07/14/22 at 2045, Until Discontinu ed, Routine docusate 2021-09 Yes 100mg 100 mg, Unive rs (COLACE) 1-10 Oral, BID, ity o f capsule 100 02:00: First dose [place] mg 00 on Tue Medical 07/14/22 at Branch 2000, Until Discontinu ed, Routine heparin 2021-09 Yes 5000U 5,000 Univers (porcine) 1-10 Units, ity of injection 02:00: Subcutaneo [place] 5,000 Units 00 us, Q12H, Med ical First dose Branch on Tue07/14/22 at 2000, Until Discontinu ed, Routine glucagon 2021-09 Yes 1mg 1 mg, Univers (GLUCAGEN 1-10 Intramuscu ity of DIAGNOSTIC 01:00: lar, PRN, [place] KIT) 51 Starting Medical injection 1 on Tue Branch mg 07/14/22 at 1900, Until Discontinu ed, SAL, Blood Glucose < or = 70 mg/dL and patient is unable to swallow or has mental changes. dextrose 50 2021-09 Yes 25mL 25 mL, Univ ers % in water 1-10 Slow IV ity of (D50W) 01:00: Push, PRN, [place] injection 51 Starting Medica l 25 mL on Tue Branch 07/14/22 at 1900, Until Discontinu ed, SAL, Blood Glucose < or = 70 mg/dL and patient is unable to swallow or has mental status changes. HYDROcodone 2021-09- No 1{tbl} 1 tablet, Univers -acetaminop -10 11-12 Oral, ity of hen (NORCO 00:58: 00:57 Q6HPRN, [place] 5) 5-325 mg 27 :27 Starting Medi vick tablet 1 on Tue tablet 07/14/22 at 1858, Until 07/16/22 at 1857, Routine, Pain (scale 4-6) acetaminoph 2021-09 Yes 650mg 650 mg, Un leatha en 1-10 Oral, ity of (TYLENOL) 00:58: Q6HPRN, [place] tablet 650 24 Starting Medic al mg on Tue Branch 07/14/22 at 1858, Until Discontinu ed, Routine, Pain (scale 1-3) calcitrioL 2021-09 Yes .25ug Take 0.25 U nivers 0.25 mcg 1-09 mcg by ity of capsule 20:35: mouth [place] 33 every Medical other day. [place] cefUROXime 2021-09 Yes 250mg Take 250 Un [place] 250 mg 1-09 mg by ity of tablet 20:35: mouth in [place] [address] the Medical morning Branch and 250 mg in the evening. foLIC acid 2021-09 Yes 1mg Take 1 mg Un [place] 1 mg tablet 1-09 by mouth ity of 20:35: in the [place] [address] morning. Medical Branch hydrALAZINE 2021-09 Yes 100mg Take 100 U nivers 100 mg 1-09 mg by ity of tablet 20:35: mouth in [place] [address] the Medical morning Branch and 100 mg at noon and 100 mg in the evening. ondansetron 2021-09 Yes 4mg Take 4 mg U nivers (ZOFRAN) 4 1-09 by mouth ity o f mg tablet 20:35: every 4 [place] [address] (four) Medical hours as Branch needed for Nausea and Vomiting (N/V). Cholecalcif 2021-09 Yes Take by Uni vers jane, 1-09 mouth. ity of Vitamin D3, 20:35: [place] ([address] D3) 125 mcg [place] (5,000 unit) tablet calcitrioL 2021-09 Yes .25ug Take 0.25 U nivers 0.25 mcg 1-09 mcg by ity of capsule 20:35: mouth [place] [address] every Medical other day. Branch cefUROXime 2021-09 Yes 250mg Take 250 Un [place] 250 mg 1-09 mg by ity of tablet 20:35: mouth in [place] [address] the Medical morning Branch and 250 mg in the evening. foLIC acid 2021-09 Yes 1mg Take 1 mg Un [place] 1 mg tablet -09 by mouth ity of 20:35: in the [place] [address] morning. Medical Branch hydrALAZINE 2021-09 Yes 100mg Take 100 U nivers 100 mg 1-09 mg by ity of tablet 20:35: mouth in [place] [address] the Medical morning Branch and 100 mg at noon and 100 mg in the evening. ondansetron 2021-09 Yes 4mg Take 4 mg U nivers (ZOFRAN) 4 -09 by mouth ity o f mg tablet 20:35: every 4 [place] [address] (four) Medical hours as Branch needed for Nausea and Vomiting (N/V). Cholecalcif 2021-09 Yes Take by Uni vers jane, 1-09 mouth. ity of Vitamin D3, 20:35: [place] (VITAMIN 33 Medical D3) 125 mcg Branch (5,000 unit) tablet ondansetron 2021-09 4mg 4 mg, Slow Univers (ZOFRAN 09-13 IV Push, ity of (PF)) 20:00: 20:07 ONCE, 1 [place] injection 4 00 :00 dose, On Medi vick mg Tue Branch 07/14/22 at 1400, SAL morpHINE (4 2021-09 No 4mg 4 mg, Slow Univers mg/mL) 09-13 IV Push, ity of injection 4 20:00: 20:07 ONCE, 1 [place] mg 00 :00 dose, On Medical Wed Branch 07/14/22 at 1400, STAT amLODIPine 2021-09 Yes 10mg Take 10 mg U nivers 10 mg 09 by mouth ity of tablet 18:55: in the [place] [address] morning. Medical Branch aspirin 81 2021-09 Yes 81mg Take 81 mg U nivers mg chewable 09-13 by mouth ity of tablet 18:55: in the [place] [address] morning. Medical Branch atorvastati 2021-09 Yes 40mg Take 40 mg Univers n (LIPITOR) 09 by mouth ity of 40 mg 18:55: at [place] tablet 22 bedtime. Medical Branch carvediloL 2021-09 Yes 12.5mg Take 12.5 Univers (COREG) 1-09 mg by ity of 12.5 mg 18:55: mouth in [place] tablet 22 the Medical morning Branch and 12.5 mg in the evening. Take with meals. clopidogreL 2021-09 Yes 75mg Take 75 mg Univers (PLAVIX) 75 -09 by mouth ity of mg tablet 18:55: in the [place] [address] morning. Medical Branch finasteride 2021-09 Yes 5mg Take 5 mg U nivers 5 mg tablet -09 by mouth ity of 18:55: in the [place] [address] morning. Medical Branch tamsulosin 2021-09 Yes Take by [facility] ers (FLOMAX) -09 mouth at ity of 0.4 mg 24 18:55: [place]time. [place] hr capsule Medical Branch acetaminoph 2021-09 Yes 650mg Take 650 U nivers en 1-09 mg by ity of (TYLENOL) 18:55: mouth [place] 325 mg Cap 22 every 6 Medica l (six) Branch hours as needed for Pain (scale 1-3). amLODIPine 2021-09 Yes 10mg Take 10 mg U nivers 10 mg 1-09 by mouth ity of tablet 18:55: in the [place] [address] morning. Medical Branch aspirin 81 2021-09 Yes 81mg Take 81 mg U nivers mg chewable 1-09 by mouth ity of tablet 18:55: in the [place] [address] morning. Medical Branch atorvastati 2021-09 Yes 40mg Take 40 mg Univers n (LIPITOR) 1-09 by mouth ity of 40 mg 18:55: at [place] tablet 22 bedtime. Medical Branch carvediloL 2021-09 Yes 12.5mg Take 12.5 [facility] (COREG) 1-09 mg by ity of 12.5 mg 18:55: mouth in [place] tablet 22 the Medical morning Branch and 12.5 mg in the evening. Take with meals. clopidogreL 2021-09 Yes 75mg Take 75 mg [facility] (PLAVIX) 75 -09 by mouth ity of mg tablet 18:55: in the [place] [address] morning. Medical Branch finasteride 2021-09 Yes 5mg Take 5 mg U nivers 5 mg tablet -09 by mouth ity of 18:55: in the [place] [address] morning. Medical Branch tamsulosin 2021-09 Yes Take by [facility] ers (FLOMAX) 1-09 mouth at ity of 0.4 mg 24 18:55: [place] hr capsule [place] acetaminoph 2021-09 Yes 650mg Take 650 U nivers en 1-09 mg by ity of (TYLENOL) 18:55: mouth [place] 325 mg Cap 22 every 6 Medica l (six) Branch hours as needed for Pain (scale 1-3). cefUROXime 2021-09 Yes [id number] 250mg Take 1 [facility] 250 mg 1-04 tablet by ity of tablet 00:00: mouth in [place] 00 the Medical morning Branch and 1 tablet in the evening. cefUROXime 2021-09 Yes [id number] 250mg Take 1 [facility] 250 mg 1-04 tablet by ity of tablet 00:00: mouth in [place] 00 the Medical morning Branch and 1 tablet in the evening. cefUROXime 2021-09 Yes [id number] 250mg Take 1 [facility] 250 mg 1-04 tablet by ity of tablet 00:00: mouth in [place] 00 the Medical morning Branch and 1 tablet in the evening. cefUROXime 2-1 Yes [id number] 250mg Take 1 [facility] 250 mg 1-04 tablet by ity of tablet 00:00: mouth in [place] 00 the Medical morning Branch and 1 tablet in the evening. cefUROXime 2-1 Yes [id number] 250mg Take 1 [facility] 250 mg 1-04 tablet by ity of tablet 00:00: mouth in [place] 00 the Medical morning Branch and 1 tablet in the evening. cefUROXime 2021-1 Yes [id number] 250mg Take 1 [facility] 250 mg 1-04 tablet by ity of tablet 00:00: mouth in [place] [address] the Medical morning Branch and 1 tablet in the evening. cefUROXime 2021-1 Yes [id number] 250mg Take 1 [facility] 250 mg 1-04 tablet by ity of tablet 00:00: mouth in [place] [address] the Medical morning Branch and 1 tablet in the evening. cefUROXime 2021-1 Yes [id number] 250mg Take 1 [facility] 250 mg 1-04 tablet by ity of tablet 00:00: mouth in [place] [address] the Medical morning Branch and 1 tablet in the evening. cefUROXime 2021-1 Yes [id number] 250mg Take 1 [facility] 250 mg 1-04 tablet by ity of tablet 00:00: mouth in [place] [address] the Medical morning Branch and 1 tablet in the evening. cefUROXime 2021-1 Yes [id number] 250mg Take 1 [facility] 250 mg 1-04 tablet by ity of tablet 00:00: mouth in [place] [address] the Medical morning Branch and 1 tablet in the evening. cefUROXime 2021-1 Yes [id number] 250mg Take 1 [facility] 250 mg 1-04 tablet by ity of tablet 00:00: mouth in [place] [address] the Medical morning Branch and 1 tablet in the evening. cefUROXime 2-1 Yes [id number] 250mg Take 1 [facility] 250 mg 1-04 tablet by ity of tablet 00:00: mouth in [place] [address] the Medical morning [place] and 1 tablet in the evening. cefUROXime 2-1 Yes [id number] 250mg Take 1 [facility] 250 mg 1-04 tablet by ity of tablet 00:00: mouth in [place] [address] the Medical morning [place] and 1 tablet in the evening. cefUROXime 2-1 Yes [id number] 250mg Take 1 [facility] 250 mg 1-04 tablet by ity of tablet 00:00: mouth in [place] 00 the Medical morning Branch and 1 tablet in the evening. cefUROXime 2021-09 Yes [id number] 250mg Take 1 [facility] 250 mg 1-04 tablet by ity of tablet 00:00: mouth in [place] 00 the Medical morning Branch and 1 tablet in the evening. cefUROXime 2021-09 Yes [id number] 250mg Take 1 [facility] 250 mg 1-04 tablet by ity of tablet 00:00: mouth in [place] 00 the Medical morning Branch and 1 tablet in the evening. cefUROXime 2021-09- No [id number] 250mg Take 1 [facility] 250 mg 1-04 -17 tablet by ity of tablet 00:00: 00:00 mouth in [place] 00 :00 the Medical morning Branch and 1 tablet in the evening. cefUROXime 2021-09- No [id number] 250mg Take 1 [facility] 250 mg 1-04 11-04 tablet by ity of tablet 00:00: 00:00 mouth in [place] 00 :00 the [facility] morning Branch and 1 tablet in the evening. Do all this for 5 days. tamsulosin 2021-09 Yes Take by Univ ers 0.4 mg 24 1-01 mouth ity of hr capsule 14:04: daily. [address] tamsulosin 2021-09 Yes Take by [facility] ers 0.4 mg 24 1-01 mouth ity of hr capsule 14:04: daily. [address] tamsulosin 2021-09 Yes Take by [facility] ers 0.4 mg 24 1-01 mouth ity of hr capsule 14:04: daily. [address] tamsulosin 2021-09 Yes Take by Univ ers 0.4 mg 24 1-01 mouth ity of hr capsule 14:04: daily. [address] tamsulosin 2021-09 Yes Take by Univ ers 0.4 mg 24 1-01 mouth ity of hr capsule 14:04: daily. [address] tamsulosin 2021-09 Yes Take by Univ ers 0.4 mg 24 1-01 mouth ity of hr capsule 14:04: daily. [address] tamsulosin 2021-09 Yes Take by Univ ers 0.4 mg 24 1-01 mouth ity of hr capsule 14:04: daily. [address] tamsulosin 2021-09 Yes Take by [facility] ers 0.4 mg 24 1- mouth ity of hr capsule 14:04: daily. [place] 45 [facility] gentamicin 2021-09- No [id number] 80mg U nivers injection 007-05 ity of 80 mg 21:45: 21:08 [place] 00 :00 [facility] gentamicin 2021-09- No [id number] 80mg 80 mg, Univers injection 007-05 Intramuscu ity of 80 mg 21:45: 21:08 lar, ONCE, [place] 00 :00 1 dose, On [facility] 07/05/22 at 1645, SAL
Re ason for Anti-Infec tive: Surgical Prophylaxi s
Surgi vick Prophylaxi s: Genitourin adrianna
Dur ation of therapy: within 24 hours of surgery gentamicin 2021-09- No [id number] 80mg U nivers injection 007-05 ity of 80 mg 21:45: 21:08 [place] 00 :00 [facility] gentamicin 2021-09- No [id number] 80mg 80 mg, Univers injection 007-05 Intramuscu ity of 80 mg 21:45: 21:08 lar, ONCE, [place] 00 :00 1 dose, On [facility] 07/05/22 at 1645, SAL
Re ason for Anti-Infec tive: Surgical Prophylaxi s
Surgi vick Prophylaxi s: Genitourin adrianna
Dur ation of therapy: within 24 hours of surgery cefTRIAXone 2021-09- No 1000mg 1,000 mg, [facility] (ROCEPHIN) 0-03 - Intramuscu it y of injection 03:15: 02:34 [place], ONCE, [place] 1,000 mg 00 :00 1 dose, On [facility] 06/06/22 at 2215, SAL
Re ason for Anti-Infec tive: Documented Infection< br>Documen flor Infection Site: Urine
D uration of Therapy: 7 days phenazopyri 2021-09 Yes [id number] 200mg Take 1 [facility] dine 200 mg 0-02 tablet by ity of tablet 00:00: mouth in [place] 00 the Medical morning Branch and 1 tablet at noon and 1 tablet in the evening. phenazopyri 2021-09 Yes [id number] 200mg Take 1 [facility] dine 200 mg 0-02 tablet by ity of tablet 00:00: mouth in [place] 00 the Medical morning Branch and 1 tablet at noon and 1 tablet in the evening. phenazopyri 2021-09 Yes [id number] 200mg Take 1 [facility] dine 200 mg 0-02 tablet by ity of tablet 00:00: mouth in [place] 00 the Medical morning Branch and 1 tablet at noon and 1 tablet in the evening. phenazopyri 2021-09 Yes [id number] 200mg Take 1 [facility] dine 200 mg 0-02 tablet by ity of tablet 00:00: mouth in [place] [address] the Medical morning Branch and 1 tablet at noon and 1 tablet in the evening. phenazopyri 2021-09 Yes [id number] 200mg Take 1 [facility] dine 200 mg 0-02 tablet by ity of tablet 00:00: mouth in [place] [address] the Medical morning Branch and 1 tablet at noon and 1 tablet in the evening. phenazopyri 2021-09 Yes [id number] 200mg Take 1 [facility] dine 200 mg 0-02 tablet by ity of tablet 00:00: mouth in [place] [address] the Medical morning Branch and 1 tablet at noon and 1 tablet in the evening. phenazopyri 2021-09 Yes [id number] 200mg Take 1 [facility] dine 200 mg 0-02 tablet by ity of tablet 00:00: mouth in [place] [address] the Medical morning Branch and 1 tablet at noon and 1 tablet in the evening. phenazopyri 2021-09 Yes [id number] 200mg Take 1 [facility] dine 200 mg 0-02 tablet by ity of tablet 00:00: mouth in [place] [address] the Medical morning Branch and 1 tablet at noon and 1 tablet in the evening. phenazopyri 1 Yes [id number] 200mg Take 1 [facility] dine 200 mg 0-02 tablet by ity of tablet 00:00: mouth in [place] [address] the Medical morning Branch and 1 tablet at noon and 1 tablet in the evening. phenazopyri 2021-09 Yes [id number] 200mg Take 1 [facility] dine 200 mg 0-02 tablet by ity of tablet 00:00: mouth in [place] 00 the Medical morning Branch and 1 tablet at noon and 1 tablet in the evening. phenazopyri 2021- Yes [id number] 200mg Take 1 [facility] dine 200 mg 0-02 tablet by ity of tablet 00:00: mouth in [place] [address] the Medical morning Branch and 1 tablet at noon and 1 tablet in the evening. phenazopyri 2021-09 Yes [id number] 200mg Take 1 [facility] dine 200 mg 0-02 tablet by ity of tablet 00:00: mouth in [place] [address] the Medical morning Branch and 1 tablet at noon and 1 tablet in the evening. phenazopyri 2021-09 Yes [id number] 200mg Take 1 [facility] dine 200 mg 0-02 tablet by ity of tablet 00:00: mouth in [address] morning [place] and 1 tablet at noon and 1 tablet in the evening. phenazopyri 2021-09 Yes [id number] 200mg Take 1 [facility] dine 200 mg 0-02 tablet by ity of tablet 00:00: mouth in [address] morning [place] and 1 tablet at noon and 1 tablet in the evening. phenazopyri 2021-09 Yes [id number] 200mg Take 1 [facility] dine 200 mg 0-02 tablet by ity of tablet 00:00: mouth in [address] morning [place] and 1 tablet at noon and 1 tablet in the evening. phenazopyri 1 Yes [id number] 200mg Take 1 [facility] dine 200 mg 0-02 tablet by ity of tablet 00:00: mouth in [place] [address] the Medical morning [place] and 1 tablet at noon and 1 tablet in the evening. phenazopyri 2021-1 Yes [id number] 200mg Take 1 [facility] dine 200 mg 0-02 tablet by ity of tablet 00:00: mouth in [place] [address] the Medical morning [place] and 1 tablet at noon and 1 tablet in the evening. phenazopyri 2021-1 Yes [id number] 200mg Take 1 [facility] dine 200 mg 0-02 tablet by ity of tablet 00:00: mouth in [address] Medical morning [place] and 1 tablet at noon and 1 tablet in the evening. phenazopyri 2021-1 Yes [id number] 200mg Take 1 [facility] dine 200 mg 0-02 tablet by ity of tablet 00:00: mouth in [place] 00 the Medical morning [place] and 1 tablet at noon and 1 tablet in the evening. phenazopyri 2021-09 Yes [id number] 200mg Take 1 [facility] dine 200 mg 0-02 tablet by ity of tablet 00:00: mouth in [place] 00 the [facility] morning [place] and 1 tablet at noon and 1 tablet in the evening. phenazopyri 2021-09 Yes [id number] 200mg Take 1 [facility] dine 200 mg 0-02 tablet by ity of tablet 00:00: mouth in [place] 00 the [facility] morning Branch and 1 tablet at noon and 1 tablet in the evening. phenazopyri 2021-09 Yes [id number] 200mg Take 1 [facility] dine 200 mg 0-02 tablet by ity of tablet 00:00: mouth in [place] 00 the [facility] and 1 tablet at noon and 1 tablet in the evening. phenazopyri 2021-09 Yes [id number] 200mg Take 1 [facility] dine 200 mg 0-02 tablet by ity of tablet 00:00: mouth in [place] 00 the [facility] and 1 tablet at noon and 1 tablet in the evening. phenazopyri 2021-09- No [id number] 200mg Take 1 [facility] dine 200 mg 0-02 01-17 tablet by it y of tablet 00:00: 00:00 mouth in [place] 00 :00 the [facility] and 1 tablet at noon and 1 tablet in the evening. cefdinir 2021-09- No [id number] 300mg Take 1 U nivers 300 mg 0-02 10-10 capsule by ity of capsule 00:00: 04:59 mouth [place] 00 :00 every 12 Medical (twelve) [place] hours for 7 days. ondansetron 2021- No 4mg 4 mg, Univ ers (ZOFRAN-ODT 05-15 Oral, ity of ) 22:30: 21:43 ONCE, 1 [place] disintegrat 00 :00 dose, On Medi vick ing tablet Sat Branch 4 mg 05/15/22 at 1730, Routine cephALEXin 2021- No 500mg 500 mg, Un [facility] (KEFLEX) 05-15 Oral, ity of capsule 500 21:30: 21:36 ONCE, 1 [place] mg 00 :00 dose, On Medical Sat Branch 05/15/22 at 1630, SAL
Re ason for Anti-Infec tive: Documented Infection< br>Documen flor Infection Site: Urine
D uration of Therapy: Other (see Comments) insulin NPH 0 Yes 10U inject 10 U nivers and regular 9-10 Units ity of human 70-30 14:48: under the [place] 100 unit/mL 16 skin 2 Medica l (70-30) (two) Branch injection times daily before breakfast and dinner. amLODIPine Yes 10mg Take 10 mg U nivers 10 mg 9-10 by mouth ity of tablet 14:48: in the [place] [address] morning. Medical Branch aspirin 81 0 Yes 81mg Take 81 mg U nivers mg chewable 9-10 by mouth ity of tablet 14:48: in the [place] [address] morning. Medical Branch calcitrioL Yes .25ug Take 0.25 U nivers 0.25 mcg 9-10 mcg by ity of capsule 14:48: mouth [place] [address] every Medical other day. Branch carvediloL Yes 12.5mg Take 12.5 Univers 12.5 mg 9-10 mg by ity of tablet 14:48: mouth in [place] [address] the Medical morning Branch and 12.5 mg in the evening. Take with meals. clopidogreL 0 Yes 75mg Take 75 mg [facility] 75 mg 9-10 by mouth ity of tablet 14:48: in the [place] [address] morning. Medical Branch insulin 0 Yes Sliding [facility] regular 9-10 Scale ity of human 100 14:48: [place] unit/mL 16 Medical injection Branch ondansetron 0 Yes 4mg Take 4 mg U nivers 4 mg tablet 9-10 by mouth ity of 14:48: every 4 [place] [address] (four) Medical hours. Branch SODIUM 0 Yes 650mg Take 650 Univer s BICARBONATE 9-10 mg by ity of ORAL 14:48: mouth 2 [place] 16 (two) Medical times Branch daily. Cholecalcif 0 Yes 1{tbl} Take 1 Un [place] jane, 9-10 tablet by ity of Vitamin D3, 14:48: [place]. [place] (VITAMIN 16 Medical D3) 125 mcg Branch (5,000 unit) tablet insulin NPH 0 Yes 10U inject 10 U nivers and regular 9-10 Units ity of human 70-30 14:48: under the [place] 100 unit/mL 16 skin 2 Medica l (70-30) (two) Branch injection times daily before breakfast and dinner. amLODIPine 0 Yes 10mg Take 10 mg U nivers 10 mg 9-10 by mouth ity of tablet 14:48: in the [place] [address] morning. Medical Branch aspirin 81 0 Yes 81mg Take 81 mg U nivers mg chewable 9-10 by mouth ity of tablet 14:48: in the [place] [address] morning. Medical Branch calcitrioL 0 Yes .25ug Take 0.25 U nivers 0.25 mcg 9-10 mcg by ity of capsule 14:48: mouth [place] [address] every Medical other day. Branch carvediloL 0 Yes 12.5mg Take 12.5 Univers 12.5 mg 9-10 mg by ity of tablet 14:48: mouth in [place] [address] the Medical morning Branch and 12.5 mg in the evening. Take with meals. clopidogreL 0 Yes 75mg Take 75 mg [facility] 75 mg 9-10 by mouth ity of tablet 14:48: in the [place] [address] morning. Medical Branch insulin 0 Yes Sliding [facility] regular 9-10 Scale ity of human 100 14:48: [place] unit/mL 16 Medical injection Branch ondansetron 0 Yes 4mg Take 4 mg U nivers 4 mg tablet 9-10 by mouth ity of 14:48: every 4 [place] [address] (four) Medical hours. Branch SODIUM 0 Yes 650mg Take 650 Univer s BICARBONATE 9-10 mg by ity of ORAL 14:48: mouth 2 [place] 16 (two) Medical times Branch daily. Cholecalcif 0 Yes 1{tbl} Take 1 Un [place] jane, 9-10 tablet by ity of Vitamin D3, 14:48: [place] (VITAMIN 16 Medical D3) 125 mcg Branch (5,000 unit) tablet insulin NPH 0 Yes 10U inject 10 U nivers and regular 9-10 Units ity of human 70-30 14:48: under the [place] 100 unit/mL 16 skin 2 Medica l (70-30) (two) Branch injection times daily before breakfast and dinner. amLODIPine 0 Yes 10mg Take 10 mg U nivers 10 mg 9-10 by mouth ity of tablet 14:48: in the [place] [address] morning. Medical Branch aspirin 81 2021-0 Yes 81mg Take 81 mg U nivers mg chewable 9-10 by mouth ity of tablet 14:48: in the [place] [address] morning. Medical Branch calcitrioL 2021-0 Yes .25ug Take 0.25 U nivers 0.25 mcg 9-10 mcg by ity of capsule 14:48: mouth [place] [address] every Medical other day. Branch carvediloL 0 Yes 12.5mg Take 12.5 Univers 12.5 mg 9-10 mg by ity of tablet 14:48: mouth in [place] 16 the Medical morning Branch and 12.5 mg in the evening. Take with meals. clopidogreL 0 Yes 75mg Take 75 mg Univers 75 mg 9-10 by mouth ity of tablet 14:48: in the [place] [address] morning. Medical Branch insulin 0 Yes Sliding [facility] regular 9-10 Scale ity of human 100 14:48: [place] unit/mL 16 Medical injection Branch ondansetron 0 Yes 4mg Take 4 mg U nivers 4 mg tablet 9-10 by mouth ity of 14:48: every 4 [place] [address] (four) Medical hours. Branch SODIUM 0 Yes 650mg Take 650 Univer s BICARBONATE 9-10 mg by ity of ORAL 14:48: mouth 2 [place] 16 (two) Medical times Branch daily. Cholecalcif 0 Yes 1{tbl} Take 1 Un [place] jane, 9-10 tablet by ity of Vitamin D3, 14:48: [place]. [place] (VITAMIN 16 Medical D3) 125 mcg Branch (5,000 unit) tablet insulin NPH 0 Yes 10U inject 10 U nivers and regular 9-10 Units ity of human 70-30 14:48: under the [place] 100 unit/mL 16 skin 2 Medica l (70-30) (two) Branch injection times daily before breakfast and dinner. amLODIPine 0 Yes 10mg Take 10 mg U nivers 10 mg 9-10 by mouth ity of tablet 14:48: in the [place] [address] morning. Medical Branch aspirin 81 2022-0 Yes 81mg Take 81 mg U nivers mg chewable 9-10 by mouth ity of tablet 14:48: in the [place] [address] morning. Medical Branch calcitrioL Yes .25ug Take 0.25 U nivers 0.25 mcg 9-10 mcg by ity of capsule 14:48: mouth [place] [address] every Medical other day. Branch carvediloL Yes 12.5mg Take 12.5 Univers 12.5 mg 9-10 mg by ity of tablet 14:48: mouth in [place] 16 the Medical morning Branch and 12.5 mg in the evening. Take with meals. clopidogreL Yes 75mg Take 75 mg Univers 75 mg 9-10 by mouth ity of tablet 14:48: in the [place] [address] morning. Medical Branch insulin Yes Sliding [facility] regular 9-10 Scale ity of human 100 14:48: [place] unit/mL 16 Medical injection Branch ondansetron Yes 4mg Take 4 mg U nivers 4 mg tablet 9-10 by mouth ity of 14:48: every 4 [place] [address] (four) Medical hours. Branch SODIUM Yes 650mg Take 650 Univer s BICARBONATE 9-10 mg by ity of ORAL 14:48: mouth 2 [place] 16 (two) Medical times Branch daily. Cholecalcif Yes 1{tbl} Take 1 Un [place] jane, 9-10 tablet by ity of Vitamin D3, 14:48: [place]. [place] (VITAMIN 16 Medical D3) 125 mcg Branch (5,000 unit) tablet insulin NPH Yes 10U inject 10 U nivers and regular 9-10 Units ity of human 70-30 14:48: under the [place] 100 unit/mL 16 skin 2 Medica l (70-30) (two) Branch injection times daily before breakfast and dinner. amLODIPine Yes 10mg Take 10 mg U nivers 10 mg 9-10 by mouth ity of tablet 14:48: in the [place] [address] morning. Medical Branch aspirin 81 0 Yes 81mg Take 81 mg U nivers mg chewable 9-10 by mouth ity of tablet 14:48: in the [place] [address] morning. Medical Branch calcitrioL Yes .25ug Take 0.25 U nivers 0.25 mcg 9-10 mcg by ity of capsule 14:48: mouth [place] [address] every Medical other day. Branch carvediloL Yes 12.5mg Take 12.5 [facility] 12.5 mg 9-10 mg by ity of tablet 14:48: mouth in [place] [address] the Medical morning Branch and 12.5 mg in the evening. Take with meals. clopidogreL 0 Yes 75mg Take 75 mg [facility] 75 mg 9-10 by mouth ity of tablet 14:48: in the [place] [address] morning. Medical Branch insulin Yes Sliding [facility] regular 9-10 Scale ity of human 100 14:48: [place] unit/mL 16 Medical injection Branch ondansetron 0 Yes 4mg Take 4 mg U nivers 4 mg tablet 9-10 by mouth ity of 14:48: every 4 [place] [address] (four) Medical hours. Branch SODIUM Yes 650mg Take 650 Univer s BICARBONATE 9-10 mg by ity of ORAL 14:48: mouth 2 [place] 16 (two) Medical times Branch daily. Cholecalcif Yes 1{tbl} Take 1 Un [place] jane, 9-10 tablet by ity of Vitamin D3, 14:48: [place]. [place] (VITAMIN 16 Medical D3) 125 mcg Branch (5,000 unit) tablet insulin NPH Yes 10U inject 10 U nivers and regular 9-10 Units ity of human 70-30 14:48: under the [place] 100 unit/mL 16 skin 2 Medica l (70-30) (two) Branch injection times daily before breakfast and dinner. amLODIPine Yes 10mg Take 10 mg U nivers 10 mg 9-10 by mouth ity of tablet 14:48: in the [place] [address] morning. Medical Branch aspirin 81 0 Yes 81mg Take 81 mg U nivers mg chewable 9-10 by mouth ity of tablet 14:48: in the [place] [address] morning. Medical Branch calcitrioL 0 Yes .25ug Take 0.25 U nivers 0.25 mcg 9-10 mcg by ity of capsule 14:48: mouth [place] 16 every Medical other day. Branch carvediloL Yes 12.5mg Take 12.5 [facility] 12.5 mg 9-10 mg by ity of tablet 14:48: mouth in [place] [address] the Medical morning Branch and 12.5 mg in the evening. Take with meals. clopidogreL 0 Yes 75mg Take 75 mg Univers 75 mg 9-10 by mouth ity of tablet 14:48: in the [place] [address] morning. Medical Branch insulin 2021-0 Yes Sliding [facility] regular 9-10 Scale ity of human 100 14:48: [place] unit/mL 16 Medical injection Branch ondansetron 0 Yes 4mg Take 4 mg U nivers 4 mg tablet 9-10 by mouth ity of 14:48: every 4 [place] [address] (four) Medical hours. Branch SODIUM Yes 650mg Take 650 Univer s BICARBONATE 9-10 mg by ity of ORAL 14:48: mouth 2 [place] [address] (two) Medical times Branch daily. Cholecalcif Yes 1{tbl} Take 1 Un [place] jane, 9-10 tablet by ity of Vitamin D3, 14:48: [place] (VITAMIN 16 Medical D3) 125 mcg Branch (5,000 unit) tablet insulin NPH Yes 10U inject 10 U nivers and regular 9-10 Units ity of human 70-30 14:48: under the [place] 100 unit/mL 16 skin 2 Medica l (70-30) (two) Branch injection times daily before breakfast and dinner. amLODIPine Yes 10mg Take 10 mg U nivers 10 mg 9-10 by mouth ity of tablet 14:48: in the [place] [address] morning. Medical Branch aspirin 81 2021-0 Yes 81mg Take 81 mg U nivers mg chewable 9-10 by mouth ity of tablet 14:48: in the [place] [address] morning. Medical Branch calcitrioL 2021-0 Yes .25ug Take 0.25 U nivers 0.25 mcg 9-10 mcg by ity of capsule 14:48: mouth [place] [address] every Medical other day. Branch carvediloL 2021-0 Yes 12.5mg Take 12.5 Univers 12.5 mg 9-10 mg by ity of tablet 14:48: mouth in [place] [address] the Medical morning Branch and 12.5 mg in the evening. Take with meals. clopidogreL 2021-0 Yes 75mg Take 75 mg Univers 75 mg 9-10 by mouth ity of tablet 14:48: in the [place] [address] morning. Medical Branch insulin 2022-0 Yes Sliding [facility] regular 9-10 Scale ity of human 100 14:48: [place] unit/mL 16 Medical injection Branch ondansetron 0 Yes 4mg Take 4 mg U nivers 4 mg tablet 9-10 by mouth ity of 14:48: every 4 [place] [address] (four) Medical hours. Branch SODIUM 0 Yes 650mg Take 650 Univer s BICARBONATE 9-10 mg by ity of ORAL 14:48: mouth 2 [place] [address] (two) Medical times Branch daily. Cholecalcif 0 Yes 1{tbl} Take 1 Un [place] jane, 9-10 tablet by ity of Vitamin D3, 14:48: [place] (VITAMIN 16 Medical D3) 125 mcg Branch (5,000 unit) tablet insulin NPH Yes 10U inject 10 U nivers and regular 9-10 Units ity of human 70-30 14:48: under the [place] 100 unit/mL 16 skin 2 Medica l (70-30) (two) Branch injection times daily before breakfast and dinner. amLODIPine 0 Yes 10mg Take 10 mg U nivers 10 mg 9-10 by mouth ity of tablet 14:48: in the [place] [address] morning. Medical Branch aspirin 81 0 Yes 81mg Take 81 mg U nivers mg chewable 9-10 by mouth ity of tablet 14:48: in the [place] [address] morning. Medical Branch calcitrioL 0 Yes .25ug Take 0.25 U nivers 0.25 mcg 9-10 mcg by ity of capsule 14:48: mouth [place] [address] every Medical other day. Branch carvediloL Yes 12.5mg Take 12.5 Univers 12.5 mg 9-10 mg by ity of tablet 14:48: mouth in [place] [address] the Medical morning Branch and 12.5 mg in the evening. Take with meals. clopidogreL 0 Yes 75mg Take 75 mg Univers 75 mg 9-10 by mouth ity of tablet 14:48: in the [place] [address] morning. Medical Branch insulin 0 Yes Sliding [facility] regular 9-10 Scale ity of human 100 14:48: [place] unit/mL 16 Medical injection Branch ondansetron 0 Yes 4mg Take 4 mg U nivers 4 mg tablet 9-10 by mouth ity of 14:48: every 4 [place] [address] (four) Medical hours. Branch SODIUM 2021-0 Yes 650mg Take 650 Univer s BICARBONATE 9-10 mg by ity of ORAL 14:48: mouth 2 [place] [address] (two) Medical times Branch daily. Cholecalcif 2021-0 Yes 1{tbl} Take 1 Un [place] jane, 9-10 tablet by ity of Vitamin D3, 14:48: [place] (VITAMIN 16 Medical D3) 125 mcg Branch (5,000 unit) tablet insulin NPH 2021-0 Yes 10U inject 10 U nivers and regular 9-10 Units ity of human 70-30 14:48: under the [place] 100 unit/mL 16 skin 2 Medica l (70-30) (two) Branch injection times daily before breakfast and dinner. amLODIPine 2021-0 Yes 10mg Take 10 mg U nivers 10 mg 9-10 by mouth ity of tablet 14:48: in the [place] [address] morning. Medical Branch aspirin 81 2021-0 Yes 81mg Take 81 mg [facility] mg chewable 9-10 by mouth ity of tablet 14:48: in the [place] [address] morning. Medical Branch calcitrioL 2021-0 Yes .25ug Take 0.25 [facility] nivers 0.25 mcg 9-10 mcg by ity of capsule 14:48: mouth [place] [address] every Medical other day. Branch carvediloL 2021-0 Yes 12.5mg Take 12.5 [facility] 12.5 mg 9-10 mg by ity of tablet 14:48: mouth in [place] [address] the Medical morning Branch and 12.5 mg in the evening. Take with meals. clopidogreL 2021-0 Yes 75mg Take 75 mg [facility] 75 mg 9-10 by mouth ity of tablet 14:48: in the [place] [address] morning. Medical Branch insulin 2021-0 Yes Sliding [facility] regular 9-10 Scale ity of human 100 14:48: [place] unit/mL 16 Medical injection Branch ondansetron 2021-0 Yes 4mg Take 4 mg U nivers 4 mg tablet 9-10 by mouth ity of 14:48: every 4 [place] [address] (four) Medical hours. Branch SODIUM 2021-0 Yes 650mg Take 650 Univer s BICARBONATE 9-10 mg by ity of ORAL 14:48: mouth 2 [place] [address] (two) Medical times Branch daily. Cholecalcif Yes 1{tbl} Take 1 [facility] le[place] jane, 9-10 tablet by ity of Vitamin D3, 14:48: [place]. [place] (VITAMIN 16 Medical D3) 125 mcg Branch (5,000 unit) tablet insulin NPH Yes 10U inject 10 U nivers and regular 9-10 Units ity of human 70-30 14:48: under the [place] 100 unit/mL 16 skin 2 Medica l (70-30) (two) Branch injection times daily before breakfast and dinner. amLODIPine 0 Yes 10mg Take 10 mg U nivers 10 mg 9-10 by mouth ity of tablet 14:48: in the [place] [address] morning. Medical Branch aspirin 81 0 Yes 81mg Take 81 mg [facility] nivers mg chewable 9-10 by mouth ity of tablet 14:48: in the [place] [address] morning. Medical Branch calcitrioL 0 Yes .25ug Take 0.25 [facility] n[facility] 0.25 mcg 9-10 mcg by ity of capsule 14:48: mouth [place] [address] every Medical other day. Branch carvediloL 0 Yes 12.5mg Take 12.5 [facility] 12.5 mg 9-10 mg by ity of tablet 14:48: mouth in [place] [address] the Medical morning Branch and 12.5 mg in the evening. Take with meals. clopidogreL 0 Yes 75mg Take 75 mg [facility] 75 mg 9-10 by mouth ity of tablet 14:48: in the [place] [address] morning. Medical Branch insulin 0 Yes Sliding [facility] regular 9-10 Scale ity of human 100 14:48: [place] unit/mL 16 Medical injection Branch ondansetron 0 Yes 4mg Take 4 mg U nivers 4 mg tablet 9-10 by mouth ity of 14:48: every 4 [place] [address] (four) Medical hours. Branch SODIUM 0 Yes 650mg Take 650 Univer s BICARBONATE 9-10 mg by ity of ORAL 14:48: mouth 2 [place] 16 (two) Medical times Branch daily. Cholecalcif 0 Yes 1{tbl} Take 1 [facility] [place] jane, 9-10 tablet by ity of Vitamin D3, 14:48: [place]. [place] (VITAMIN 16 Medical D3) 125 mcg Branch (5,000 unit) tablet insulin NPH Yes 10U inject 10 U nivers and regular 9-10 Units ity of human 70-30 14:48: under the [place] 100 unit/mL 16 skin 2 Medica l (70-30) (two) Branch injection times daily before breakfast and dinner. amLODIPine 0 Yes 10mg Take 10 mg [facility] nivers 10 mg 9-10 by mouth ity of tablet 14:48: in the [place] [address] morning. Medical Branch aspirin 81 0 Yes 81mg Take 81 mg [facility] n[facility] mg chewable 9-10 by mouth ity of tablet 14:48: in the [place] [address] morning. Medical Branch calcitrioL 0 Yes .25ug Take 0.25 [facility] nivers 0.25 mcg 9-10 mcg by ity of capsule 14:48: mouth [place] [address] every Medical other day. Branch carvediloL Yes 12.5mg Take 12.5 [facility] 12.5 mg 9-10 mg by ity of tablet 14:48: mouth in [place] [address] the Medical morning Branch and 12.5 mg in the evening. Take with meals. clopidogreL Yes 75mg Take 75 mg [facility] 75 mg 9-10 by mouth ity of tablet 14:48: in the [place] [address] morning. Medical Branch insulin 0 Yes Sliding [facility] regular 9-10 Scale ity of human 100 14:48: [place] unit/mL 16 Medical injection Branch ondansetron 0 Yes 4mg Take 4 mg U nivers 4 mg tablet 9-10 by mouth ity of 14:48: every 4 [place] [address] (four) Medical hours. Branch SODIUM Yes 650mg Take 650 Univer s BICARBONATE 9-10 mg by ity of ORAL 14:48: mouth 2 [place] 16 (two) Medical times Branch daily. Cholecalcif 0 Yes 1{tbl} Take 1 [facility] [place] jane, 9-10 tablet by ity of Vitamin D3, 14:48: mouth. [place] (VITAMIN 16 Medical D3) 125 mcg Branch (5,000 unit) tablet insulin NPH 0 Yes 10U inject 10 U nivers and regular 9-10 Units ity of human 70-30 14:48: under the [place] 100 unit/mL 16 skin 2 Medica l (70-30) (two) Branch injection times daily before breakfast and dinner. amLODIPine 0 Yes 10mg Take 10 mg [facility] nivers 10 mg 9-10 by mouth ity of tablet 14:48: in the [place] [address] morning. Medical Branch aspirin 81 2021-0 Yes 81mg Take 81 mg [facility] mg chewable 9-10 by mouth ity of tablet 14:48: in the [place] [address] morning. Medical Branch calcitrioL 2021-0 Yes .25ug Take 0.25 [facility] nivers 0.25 mcg 9-10 mcg by ity of capsule 14:48: mouth [place] [address] every Medical other day. Branch carvediloL 0 Yes 12.5mg Take 12.5 [facility] 12.5 mg 9-10 mg by ity of tablet 14:48: mouth in [place] [address] the Medical morning Branch and 12.5 mg in the evening. Take with meals. clopidogreL 0 Yes 75mg Take 75 mg [facility] 75 mg 9-10 by mouth ity of tablet 14:48: in the [place] [address] morning. Medical Branch insulin 0 Yes Sliding [facility] regular 9-10 Scale ity of human 100 14:48: [place] unit/mL 16 Medical injection Branch ondansetron 0 Yes 4mg Take 4 mg [facility] nivers 4 mg tablet 9-10 by mouth ity of 14:48: every 4 [place] [address] (four) Medical hours. Branch SODIUM 0 Yes 650mg Take 650 Un[facility] s BICARBONATE 9-10 mg by ity of ORAL 14:48: mouth 2 [place] 16 (two) Medical times Branch daily. Cholecalcif 0 Yes 1{tbl} Take 1 [facility] [place] jane, 9-10 tablet by ity of Vitamin D3, 14:48: mouth. [place] (VITAMIN 16 Medical D3) 125 mcg Branch (5,000 unit) tablet insulin NPH 0 Yes 10U inject 10 U nivers and regular 9-10 Units ity of human 70-30 14:48: under the [place] 100 unit/mL 16 skin 2 Medica l (70-30) (two) Branch injection times daily before breakfast and dinner. amLODIPine 2021-0 Yes 10mg Take 10 mg [facility] 10 mg 9-10 by mouth ity of tablet 14:48: in the [place] [address] morning. Medical Branch aspirin 81 2021-0 Yes 81mg Take 81 mg [facility] mg chewable 9-10 by mouth ity of tablet 14:48: in the [place] [address] morning. Medical Branch calcitrioL 0 Yes .25ug Take 0.25 [facility] n[facility] 0.25 mcg 9-10 mcg by ity of capsule 14:48: mouth [place] [address] every Medical other day. Branch carvediloL 0 Yes 12.5mg Take 12.5 [facility] 12.5 mg 9-10 mg by ity of tablet 14:48: mouth in [place] [address] the Medical morning Branch and 12.5 mg in the evening. Take with meals. clopidogreL 0 Yes 75mg Take 75 mg [facility] 75 mg 9-10 by mouth ity of tablet 14:48: in the [place] [address] morning. Medical Branch insulin 0 Yes Sliding [facility] regular 9-10 Scale ity of human 100 14:48: [place] unit/mL 16 Medical injection Branch ondansetron 0 Yes 4mg Take 4 mg [facility] nivers 4 mg tablet 9-10 by mouth ity of 14:48: every 4 [place] [address] (four) Medical hours. Branch SODIUM Yes 650mg Take 650 Un[facility] s BICARBONATE 9-10 mg by ity of ORAL 14:48: mouth 2 [place] 16 (two) Medical times Branch daily. Cholecalcif Yes 1{tbl} Take 1 [facility] [place] jane, 9-10 tablet by ity of Vitamin D3, 14:48: mouth. [place] (VITAMIN 16 Medical D3) 125 mcg Branch (5,000 unit) tablet insulin NPH 0 Yes 10U inject 10 U nivers and regular 9-10 Units ity of human 70-30 14:48: under the [place] 100 unit/mL 16 skin 2 Medica l (70-30) (two) Branch injection times daily before breakfast and dinner. amLODIPine 0 Yes 10mg Take 10 mg [facility] 10 mg 9-10 by mouth ity of tablet 14:48: in the [place] [address] morning. Medical Branch aspirin 81 2021-0 Yes 81mg Take 81 mg [facility] mg chewable 9-10 by mouth ity of tablet 14:48: in the [place] [address] morning. Medical Branch calcitrioL 2021-0 Yes .25ug Take 0.25 [facility] 0.25 mcg 9-10 mcg by ity of capsule 14:48: mouth [place] [address] every Medical other day. Branch carvediloL Yes 12.5mg Take 12.5 [facility] 12.5 mg 9-10 mg by ity of tablet 14:48: mouth in [place] [address] the Medical morning Branch and 12.5 mg in the evening. Take with meals. clopidogreL 2021-0 Yes 75mg Take 75 mg [facility] 75 mg 9-10 by mouth ity of tablet 14:48: in the [place] [address] morning. Medical Branch insulin 0 Yes Sliding [facility] regular 9-10 Scale ity of human 100 14:48: [place] unit/mL 16 Medical injection Branch ondansetron 0 Yes 4mg Take 4 mg [facility] nivers 4 mg tablet 9-10 by mouth ity of 14:48: every 4 [place] [address] (four) Medical hours. Branch SODIUM Yes 650mg Take 650 Univer s BICARBONATE 9-10 mg by ity of ORAL 14:48: mouth 2 [place] [address] (two) Medical times Branch daily. Cholecalcif Yes 1{tbl} Take 1 [facility] [place] jane, 9-10 tablet by ity of Vitamin D3, 14:48: mouth. [place] (VITAMIN 16 Medical D3) 125 mcg Branch (5,000 unit) tablet insulin NPH Yes 10U inject 10 U nivers and regular 9-10 Units ity of human 70-30 14:48: under the [place] 100 unit/mL 16 skin 2 Medica l (70-30) (two) Branch injection times daily before breakfast and dinner. amLODIPine 0 Yes 10mg Take 10 mg [facility] n[facility] 10 mg 9-10 by mouth ity of tablet 14:48: in the [place] [address] morning. Medical Branch aspirin 81 2021-0 Yes 81mg Take 81 mg [facility] n[facility] mg chewable 9-10 by mouth ity of tablet 14:48: in the [place] [address] morning. Medical Branch calcitrioL 2021-0 Yes .25ug Take 0.25 [facility] 0.25 mcg 9-10 mcg by ity of capsule 14:48: mouth [place] [address] every Medical other day. Branch carvediloL 0 Yes 12.5mg Take 12.5 [facility] 12.5 mg 9-10 mg by ity of tablet 14:48: mouth in [place] [address] the Medical morning Branch and 12.5 mg in the evening. Take with meals. clopidogreL Yes 75mg Take 75 mg [facility] 75 mg 9-10 by mouth ity of tablet 14:48: in the [place] [address] morning. Medical Branch insulin 0 Yes Sliding [facility] regular 9-10 Scale ity of human 100 14:48: [place] unit/mL 16 Medical injection Branch ondansetron Yes 4mg Take 4 mg [facility] nivers 4 mg tablet 9-10 by mouth ity of 14:48: every 4 [place] [address] (four) Medical hours. Branch SODIUM Yes 650mg Take 650 Un[facility] s BICARBONATE 9-10 mg by ity of ORAL 14:48: mouth 2 [place] [address] (two) Medical times Branch daily. Cholecalcif Yes 1{tbl} Take 1 [facility] [place] jane, 9-10 tablet by ity of Vitamin D3, 14:48: mouth. [place] (VITAMIN 16 Medical D3) 125 mcg Branch (5,000 unit) tablet insulin NPH Yes 10U inject 10 U nivers and regular 9-10 Units ity of human 70-30 14:48: under the [place] 100 unit/mL 16 skin 2 Medica l (70-30) (two) Branch injection times daily before breakfast and dinner. amLODIPine Yes 10mg Take 10 mg [facility] n[facility] 10 mg 9-10 by mouth ity of tablet 14:48: in the [place] [address] morning. Medical Branch aspirin 81 Yes 81mg Take 81 mg [facility] n[facility] mg chewable 9-10 by mouth ity of tablet 14:48: in the [place] [address] morning. Medical Branch calcitrioL Yes .25ug Take 0.25 [facility] n[facility] 0.25 mcg 9-10 mcg by ity of capsule 14:48: mouth [place] [address] every Medical other day. Branch carvediloL Yes 12.5mg Take 12.5 [facility] 12.5 mg 9-10 mg by ity of tablet 14:48: mouth in [place] [address] the Medical morning Branch and 12.5 mg in the evening. Take with meals. clopidogreL Yes 75mg Take 75 mg [facility] 75 mg 9-10 by mouth ity of tablet 14:48: in the [place] [address] morning. Medical Branch insulin 2021-0 Yes Sliding [facility] regular 9-10 Scale ity of human 100 14:48: [place] unit/mL 16 Medical injection Branch ondansetron 2021-0 Yes 4mg Take 4 mg [facility] nivers 4 mg tablet 9-10 by mouth ity of 14:48: every 4 [place] 16 (four) Medical hours. Branch SODIUM 2021-0 Yes 650mg Take 650 Univer s BICARBONATE 9-10 mg by ity of ORAL 14:48: mouth 2 [place] 16 (two) Medical times Branch daily. Cholecalcif 2021-0 Yes 1{tbl} Take 1 Un [place] jane, 9-10 tablet by ity of Vitamin D3, 14:48: mouth. [place] (VITAMIN 16 Medical D3) 125 mcg Branch (5,000 unit) tablet cephALEXin 2021-0 Yes [id number] 500mg Take 1 [facility] (KEFLEX) 9-10 capsule by ity o f 500 mg 00:00: mouth 4 [place] capsule 00 (four) Medical times Branch daily. cephALEXin 2021-0 Yes [id number] 500mg Take 1 [facility] (KEFLEX) 9-10 capsule by ity o f 500 mg 00:00: mouth 4 [place] capsule 00 (four) Medical times Branch daily. cephALEXin 2021-0 Yes [id number] 500mg Take 1 [facility] (KEFLEX) 9-10 capsule by ity o f 500 mg 00:00: mouth 4 [place] capsule 00 (four) Medical times Branch daily. cephALEXin 2021-0 Yes [id number] 500mg Take 1 [facility] (KEFLEX) 9-10 capsule by ity o f 500 mg 00:00: mouth 4 [place] capsule 00 (four) Medical times Branch daily. cephALEXin 2-0 Yes [id number] 500mg Take 1 [facility] (KEFLEX) 9-10 capsule by ity o f 500 mg 00:00: mouth 4 [place] capsule 00 (four) Medical times Branch daily. cephALEXin 2022-0 Yes [id number] 500mg Take 1 [facility] (KEFLEX) 9-10 capsule by ity o f 500 mg 00:00: mouth 4 [place] capsule 00 (four) Medical times Branch daily. cephALEXin 2022-0 2022- No [id number] 500mg Take 1 [facility] (KEFLEX) 9-10 10-02 capsule by ity of 500 mg 00:00: 00:00 mouth 4 [place] capsule 00 :00 (four) Medical times Branch daily. clopidogrel 2022-0 Yes 75mg Take 75 mg [facility] (Plavix) 75 8-25 by mouth. [facility] tablet 00:00: 00 clopidogrel Yes 75mg Take 75 mg [facility] (Plavix) 75 8-25 by mouth. [facility] MG tablet 00:00: 00 clopidogrel 0 Yes 75mg Take 75 mg [facility] (Plavix) 75 8-25 by mouth. [facility] MG tablet 00:00: 00 ergocalcife 2020- No [id number] 19916G Take 1 [facility] rol, 4-25 05-02 capsule by ity of vitamin d2, 00:00: 04:59 mouth [place] 1,250 mcg 00 :00 weekly for Medi vick (50,000 6 days. Branch unit) capsule ergocalcife 2020- No [id number] [id number] Take 1 [facility] rol, 4-25 05-02 capsule by ity of vitamin d2, 00:00: 04:59 mouth [place] 1,250 mcg 00 :00 weekly for Medi vick (50,000 6 days. Branch unit) capsule aspirin 81 2020- No [id number] 81mg Take 1 [facility] mg chewable 4-21 05-22 tablet by it y of tablet 00:00: 04:59 mouth [place] 00 :00 daily for Medical 30 days. Branch metoprolol 2020- No [id number] 25mg Take 1 [facility] succinate 4-21 05-22 tablet by ity of XL 25 mg 24 00:00: 04:59 mouth [place] hr tablet 00 :00 daily for Medic al 30 days. Branch aspirin 81 2020- No [id number] 81mg Take 1 [facility] mg chewable 4-21 05-22 tablet by it y of tablet 00:00: 04:59 mouth [place] 00 :00 daily for Medical 30 days. Branch metoprolol 2020- No [id number] 25mg Take 1 [facility] succinate 4-21 05-22 tablet by ity of XL 25 mg [...] ity of tablet 20:42: every 8 [place] 04 (eight) Medical hours. Branch losartan Yes 100mg [...] ity of tablet 20:42: every 8 [place] 04 (eight) Medical hours. Branch losartan Yes 100mg Take 100 [facility] ers 100 mg 4-20 mg by ity of tablet 20:42: mouth [place] 04 daily. Medical Branch carvediloL No 12.5mg Take 12.5 [facility] 12.5 mg 4-20 04-20 mg by ity of tablet 17:25: 00:00 mouth 2 [place] 08 :00 (two) Medical times Branch daily with meals. atorvastati Yes 40mg Take 40 mg [facility] n (LIPITOR) 4-20 by mouth ity of 40 mg 15:42: at [place] tablet 04 bedtime. Medical Branch glimepiride 0 Yes 2mg Take 2 mg [facility] n[facility] 2 mg tablet 4-20 by mouth ity of 15:42: daily with [place] 04 breakfast. Medical Branch hydrALAZINE 0 Yes 50mg Take 50 mg [facility] 50 mg 4-20 by mouth ity of tablet 15:42: every 8 [place] 04 (eight) Medical hours. Branch losartan 0 Yes 100mg Take 100 [facility] ers 100 mg 4-20 mg by ity of tablet 15:42: mouth [place] 04 daily. Medical Branch atorvastati Yes 40mg Take 40 mg [facility] n (LIPITOR) 4-20 by mouth ity of 40 mg 15:42: at [place] tablet 04 bedtime. Medical Branch glimepiride 0 Yes 2mg Take 2 mg [facility] n[facility] 2 mg tablet 4-20 by mouth ity of 15:42: daily with [place] 04 breakfast. Medical Branch hydrALAZINE 0 Yes 50mg Take 50 mg [facility] 50 mg 4-20 by mouth ity of tablet 15:42: every 8 [place] 04 (eight) Medical hours. Branch losartan 0 Yes 100mg Take 100 [facility] ers 100 mg 4-20 mg by ity of tablet 15:42: mouth [place] 04 daily. Medical Branch atorvastati 0 Yes 40mg Take 40 mg [facility] n (LIPITOR) 4-20 by mouth ity of 40 mg 15:42: at [place] tablet 04 bedtime. Medical Branch glimepiride 0 Yes 2mg Take 2 mg [facility] n[facility] 2 mg tablet 4-20 by mouth ity of 15:42: daily with [place] 04 breakfast. Medical Branch hydrALAZINE 0 Yes 50mg Take 50 mg [facility] 50 mg 4-20 by mouth ity of tablet 15:42: every 8 [place] 04 (eight) Medical hours. Branch losartan 0 Yes 100mg Take 100 [facility] ers 100 mg 4-20 mg by ity of tablet 15:42: mouth [place] 04 daily. Medical Branch atorvastati 0 Yes 40mg Take 40 mg [facility] n (LIPITOR) 4-20 by mouth ity of 40 mg 15:42: at [place] tablet 04 bedtime. Medical Branch glimepiride 0 Yes 2mg Take 2 mg [facility] n[facility] 2 mg tablet 4-20 by mouth ity of 15:42: daily with [place] 04 breakfast. Medical Branch hydrALAZINE 0 Yes 50mg Take 50 mg [facility] 50 mg 4-20 by mouth ity of tablet 15:42: every 8 [place] 04 (eight) Medical hours. Branch losartan 0 Yes 100mg Take 100 [facility] ers 100 mg 4-20 mg by ity of tablet 15:42: mouth [place] 04 daily. Medical Branch atorvastati 0 Yes 40mg Take 40 mg [facility] n (LIPITOR) 4-20 by mouth ity of 40 mg 15:42: at [place] tablet 04 bedtime. Medical Branch glimepiride 0 Yes 2mg Take 2 mg [facility] nivers 2 mg tablet 4-20 by mouth ity of 15:42: daily with [place] 04 breakfast. Medical Branch hydrALAZINE 0 Yes 50mg Take 50 mg [facility] 50 mg 4-20 by mouth ity of tablet 15:42: every 8 [place] 04 (eight) Medical hours. Branch losartan 2020-0 Yes 100mg Take 100 [facility] ers 100 mg 4-20 mg by ity of tablet 15:42: mouth [place] 04 daily. Medical Branch atorvastati 0 Yes 40mg Take 40 mg [facility] n (LIPITOR) 4-20 by mouth ity of 40 mg 15:42: at [place] tablet 04 bedtime. Medical Branch glimepiride 0 Yes 2mg Take 2 mg [facility] nivers 2 mg tablet 4-20 by mouth ity of 15:42: daily with [place] 04 breakfast. Medical Branch hydrALAZINE 0 Yes 50mg Take 50 mg [facility] 50 mg 4-20 by mouth ity of tablet 15:42: every 8 [place] 04 (eight) Medical hours. Branch losartan 2020-0 Yes 100mg Take 100 [facility] ers 100 mg 4-20 mg by ity of tablet 15:42: mouth [place] 04 daily. Medical Branch atorvastati 0 Yes 40mg Take 40 mg [facility] n (LIPITOR) 4-20 by mouth ity of 40 mg 15:42: at [place] tablet 04 bedtime. Medical Branch glimepiride 2020-0 Yes 2mg Take 2 mg [facility] nivers 2 mg tablet 4-20 by mouth ity of 15:42: daily with [place] 04 breakfast. Medical Branch hydrALAZINE 0 Yes 50mg Take 50 mg [facility] 50 mg 4-20 by mouth ity of tablet 15:42: every 8 [place] 04 (eight) Medical hours. Branch losartan 0 Yes 100mg Take 100 [facility] ers 100 mg 4-20 mg by ity of tablet 15:42: mouth [place] 04 daily. Medical Branch atorvastati 0 Yes 40mg Take 40 mg [facility] n (LIPITOR) 4-20 by mouth ity of 40 mg 15:42: at [place] tablet 04 bedtime. Medical Branch glimepiride 0 Yes 2mg Take 2 mg [facility] n[facility] 2 mg tablet 4-20 by mouth ity of 15:42: daily with [place] 04 breakfast. Medical Branch hydrALAZINE Yes 50mg Take 50 mg [facility] 50 mg 4-20 by mouth ity of tablet 15:42: every 8 [place] 04 (eight) Medical hours. Branch losartan 0 Yes 100mg Take 100 [facility] ers 100 mg 4-20 mg by ity of tablet 15:42: mouth [place] 04 daily. Medical Branch atorvastati Yes 40mg Take 40 mg [facility] n (LIPITOR) 4-20 by mouth ity of 40 mg 15:42: at [place] tablet 04 bedtime. Medical Branch glimepiride 0 Yes 2mg Take 2 mg [facility] n[facility] 2 mg tablet 4-20 by mouth ity of 15:42: daily with [place] 04 breakfast. Medical Branch hydrALAZINE 0 Yes 50mg Take 50 mg [facility] 50 mg 4-20 by mouth ity of tablet 15:42: every 8 [place] 04 (eight) Medical hours. Branch losartan 0 Yes 100mg Take 100 [facility] ers 100 mg 4-20 mg by ity of tablet 15:42: mouth [place] 04 daily. Medical Branch atorvastati 0 Yes 40mg Take 40 mg [facility] n (LIPITOR) 4-20 by mouth ity of 40 mg 15:42: at [place] tablet 04 bedtime. Medical Branch glimepiride 0 Yes 2mg Take 2 mg [facility] n[facility] 2 mg tablet 4-20 by mouth ity of 15:42: daily with [place] 04 breakfast. Medical Branch hydrALAZINE 2021-0 Yes 50mg Take 50 mg [facility] 50 mg 4-20 by mouth ity of tablet 15:42: every 8 [place] 04 (eight) Medical hours. Branch losartan 0 Yes 100mg Take 100 [facility] ers 100 mg 4-20 mg by ity of tablet 15:42: mouth [place] 04 daily. Medical Branch atorvastati Yes 40mg Take 40 mg [facility] n (LIPITOR) 4-20 by mouth ity of 40 mg 15:42: at [place] tablet 04 bedtime. Medical Branch glimepiride 0 Yes 2mg Take 2 mg [facility] n[facility] 2 mg tablet 4-20 by mouth ity of 15:42: daily with [place] 04 breakfast. Medical Branch hydrALAZINE Yes 50mg Take 50 mg [facility] 50 mg 4-20 by mouth ity of tablet 15:42: every 8 [place] 04 (eight) Medical hours. Branch losartan Yes 100mg Take 100 [facility] ers 100 mg 4-20 mg by ity of tablet 15:42: mouth [place] 04 daily. Medical Branch atorvastati Yes 40mg Take 40 mg [facility] n (LIPITOR) 4-20 by mouth ity of 40 mg 15:42: at [place] tablet 04 bedtime. Medical Branch glimepiride 0 Yes 2mg Take 2 mg [facility] n[facility] 2 mg tablet 4-20 by mouth ity of 15:42: daily with [place] 04 breakfast. Medical Branch hydrALAZINE Yes 50mg Take 50 mg [facility] 50 mg 4-20 by mouth ity of tablet 15:42: every 8 [place] 04 (eight) Medical hours. Branch losartan 0 Yes 100mg Take 100 [facility] ers 100 mg 4-20 mg by ity of tablet 15:42: mouth [place] 04 daily. Medical Branch atorvastati Yes 40mg Take 40 mg [facility] n (LIPITOR) 4-20 by mouth ity of 40 mg 15:42: at [place] tablet 04 bedtime. Medical Branch glimepiride 0 Yes 2mg Take 2 mg [facility] 2 mg tablet 4-20 by mouth ity of 15:42: daily with [place] 04 breakfast. Medical Branch hydrALAZINE 0 Yes 50mg Take 50 mg [facility] 50 mg 4-20 by mouth ity of tablet 15:42: every 8 [place] 04 (eight) Medical hours. Branch losartan 0 Yes 100mg Take 100 [facility] ers 100 mg 4-20 mg by ity of tablet 15:42: mouth [place] 04 daily. Medical Branch atorvastati 0 Yes 40mg Take 40 mg [facility] n (LIPITOR) 4-20 by mouth ity of 40 mg 15:42: at [place] tablet 04 bedtime. Medical Branch glimepiride 0 Yes 2mg Take 2 mg [facility] n[facility] 2 mg tablet 4-20 by mouth ity of 15:42: daily with [place] 04 breakfast. Medical Branch hydrALAZINE 0 Yes 50mg Take 50 mg [facility] 50 mg 4-20 by mouth ity of tablet 15:42: every 8 [place] 04 (eight) Medical hours. Branch losartan 0 Yes 100mg Take 100 [facility] ers 100 mg 4-20 mg by ity of tablet 15:42: mouth [place] 04 daily. Medical Branch atorvastati Yes 40mg Take 40 mg [facility] n (LIPITOR) 4-20 by mouth ity of 40 mg 15:42: at [place] tablet 04 bedtime. Medical Branch glimepiride 0 Yes 2mg Take 2 mg [facility] n[facility] 2 mg tablet 4-20 by mouth ity of 15:42: daily with [place] 04 breakfast. Medical Branch hydrALAZINE 0 Yes 50mg Take 50 mg [facility] 50 mg 4-20 by mouth ity of tablet 15:42: every 8 [place] 04 (eight) Medical hours. Branch losartan 0 Yes 100mg Take 100 [facility] ers 100 mg 4-20 mg by ity of tablet 15:42: mouth [place] 04 daily. Medical Branch atorvastati 0 Yes 40mg Take 40 mg [facility] n (LIPITOR) 4-20 by mouth ity of 40 mg 15:42: at [place] tablet 04 bedtime. Medical Branch glimepiride 0 Yes 2mg Take 2 mg [facility] n[facility] 2 mg tablet 4-20 by mouth ity of 15:42: daily with [place] 04 breakfast. Medical Branch hydrALAZINE 0 Yes 50mg Take 50 mg [facility] 50 mg 4-20 by mouth ity of tablet 15:42: every 8 [place] 04 (eight) Medical hours. Branch losartan 0 Yes 100mg Take 100 [facility] ers 100 mg 4-20 mg by ity of tablet 15:42: mouth [place] 04 daily. Medical Branch acetaminoph Yes 650mg 650 mg, Un leatha [...] Until Discontinu ed, Routine furosemide 2020- No [id number] 40mg Take 1 [facility] 40 mg 4-20 05-21 tablet by ity of tablet 00:00: 04:59 mouth [place] 00 :00 every Medical morning Branch and evening for 30 days. gabapentin 2020- No [id number] 100mg Take 1 [facility] 100 mg 4-20 05-21 capsule by ity of capsule 00:00: 04:59 mouth 2 [place] 00 :00 (two) Medical times Branch daily for 30 days. tamsulosin 2020- No [id number] .4mg Take 1 [facility] 0.4 mg 24 4-20 05-21 capsule by ity of hr capsule 00:00: 04:59 mouth at [place] 00 :00 bedtime Medical for 30 Branch days. furosemide 2020- No [id number] 40mg Take 1 [facility] 40 mg 4-20 05-21 tablet by ity of tablet 00:00: 04:59 mouth [place] 00 :00 every Medical morning Branch and evening for 30 days. gabapentin 2020- No [id number] 100mg Take 1 [facility] 100 mg 4-20 05-21 capsule by ity of capsule 00:00: 04:59 mouth 2 [place] 00 :00 (two) Medical times Branch daily for 30 days. tamsulosin 2020- No [id number] .4mg Take 1 [facility] 0.4 mg 24 4-20 05-21 capsule by ity of hr capsule 00:00: 04:59 mouth at [place] 00 :00 bedtime Medical for 30 Branch days. gabapentin 2020- No 300mg 300 mg, [facility] (NEURONTIN) 12-22-19 Oral, ity of capsule 300 06:30: 05:26 ONCE, 1 [place] mg 00 :00 dose, [facility] 12/22/20 at Branch 0130, Routine aspirin 2020-0 Yes 81mg 81 mg, [facility] chewable -18 Oral, ity of tablet 81 20:00: DAILY, [place] mg 00 First dose Medical on [facility] 12/21/20 at 1500, Until Discontinu ed, Routine hydrALAZINE 2020-0 Yes 50mg 50 mg, Univ ers (APRESOLINE 4-18 Oral, Q8H, it y of ) tablet 50 19:45: First dose [place] mg [facility] on [facility] 12[facility]20 at Branch 1445, Until Discontinu ed, Routine KCL 2020-2020- No 20meq 20 mEq, Univers (KLOR-CON 12-21- Oral, ity of M20) tablet 18:30: 18:19 ONCE, 1 [place] 20 mEq 00 :00 dose, [facility] 12[facility]20 at Branch 1330, Routine furosemide 2020-0 2020- No 40mg 40 mg, Univ ers (LASIX) 12-21-18 Slow IV ity of injection 18:30: 18:20 Push, [place] 40 mg 00 :00 ONCE, 1 Medical dose, [facility] 12/21/20 at 1330, Routine ergocalcife 2020-0 Yes [id number] 50,000 Un leatha rol 4-18 Units, ity of (vitamin 14:00: Oral, [place] d2) 00 QWEEKLY, Medical (CALCIFEROL First dose Br anch ) capsule on [place] 50,000 12/21/20 at Units 0900, Until Discontinu ed, Routine losartan 2020-0 Yes 50mg 50 mg, Univers (COZAAR) 4-18 Oral, ity of tablet 50 14:00: DAILY, [place] mg 00 First dose Medical (after Branch last modificati on) on [place] 12/21/20 at 0900, Until Discontinu ed, Routine furosemide 2020-0 Yes 40mg 40 mg, Unive rs (LASIX) 4-17 Oral, ity of tablet 40 14:00: QAM+PM, [place] mg 00 First dose Medical on [facility] Branch 12/20/20 at 0900, Until Discontinu ed, Routine metoprolol Yes 25mg 25 mg, Unive rs succinate 12-20 Oral, ity of XL (TOPROL 14:00: DAILY, [place] XL) tablet 00 First dose Med ical 25 mg (after Branch last modificati on) on [facility] 12/20/20 at 0900, Until Discontinu ed, Routine losartan No 25mg 25 mg, Univer s (COZAAR) 12-20 Oral, ity of tablet 25 14:00: 18:34 DAILY, [place] mg 00 :42 First dose Medical on [facility] Branch 12/20/20 at 0900, Until Discontinu ed, Routine tamsulosin Yes .4mg 0.4 mg, Univ ers (FLOMAX) 12-20 Oral, QHS, ity o f capsule 0.4 02:00: First dose [place] mg 00 (after Medical last Branch modificati on) on Tue12/19/20 at 2100, Until Discontinu ed, Routine atorvastati Yes 40mg 40 mg, Univ ers n (LIPITOR) 12-20 Oral, QHS, it y of tablet 40 02:00: First dose [place] mg 00 on Tue [facility] 12/19/20 at Branch 2100, Until Discontinu ed, Routine vancomycin No 1000mg 1,000 mg, Univers (VANCOCIN) 12-20 IV ity of 1,000 mg in 01:08: 19:56 Piggyback, [place] NaCl 0.9% 00 :48 Q24H, Medical (NS) 250 mL First dose Br anch VIAL-MATE (after IV last piggyback modificati on) on Tue12/19/20 at 2015, Until Discontinu ed, 250 mL
Reas on for Anti-Infec tive: Empiric Therapy for Suspected Infection< br>Empi jordana Therapy Site: Urine
D uration of therapy: 72 hours sulfur 2020- No [id number] 5mL 5 mL, Univ ers hexafluorid 12-19 Intravenou i ty of e microsphr 18:00: 19:00 s, ONCE, 1 [place] (LUMASON) 00 :00 dose, Fri Medic al injection 5 12/19/20 at Br anch mL 1300, Routine
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 medication : BRY RUTH docusate Yes 100mg 100 mg, Unive rs (COLACE) 4-16 Oral, BID, ity o f capsule 100 13:00: First dose [place] mg 00 on Fri Medical 12/19/20 at Branch 0800, Until Discontinu ed, Routine heparin 0 Yes 5000U 5,000 Univers (porcine) 16 Units, ity of injection 13:00: Subcutaneo [place] 5,000 Units 00 us, Q12H, Med ical First dose Branch on Tue12/19/20 at 0800, Until Discontinu ed, Routine Sliding Yes Subcutaneo Univ ers Scale -16 us, TID ity of Insulin - 13:00: MEALS, [place] Lispro 00 First dose Medical (HumaLOG) + on Tue Branch [facility] 12/19/20 at Testing 0800, Until Discontinu ed, Routine glimepiride Yes 2mg 2 mg, Unive rs (AMARYL) 16 Oral, QAM ity of tablet 2 mg 13:00: WITH [place] 00 BREAKFAST, Medical First dose Branch on Tue12/19/20 at 0800, Until Discontinu ed, Routine insulin NPH Yes 7U 7 Units, Un leatha and regular 12-19 Subcutaneo it y of human 70-30 12:30: us, BIDAC, [place] (HUMULIN 00 First dose Medic al 70-30 [...] lactobacill Yes 1{tbl} 1 tablet, Univers us 16 Oral, BID, ity of acidophilus 08:15: First dose [place] (ACIDOPHILL 00 on Fri Medica l US) 25 12/19/20 at Branch million 0315, cell -100 Until mg captab 1 Discontinu tablet ed, Routine metoprolol No 25mg 25 mg, Univ ers succinate 12-1917 Oral, BID, ity of XL (TOPROL 08:15: 06:21 First dose [place] XL) tablet 00 :48 on Fri Medical 25 mg 12/19/20 at Branch 0315, Until Discontinu ed, Routine aspirin No 81mg 81 mg, Univers chewable 12-1916 Oral, QAM ity o f tablet 81 08:15: 15:48 WITH [place] mg 00 :23 BREAKFAST, Medical First dose Branch on 12/19/20 at 0315, Until Discontinu ed, Routine ondansetron Yes 4mg 4 mg, Slow Univers (ZOFRAN 16 IV Push, ity of (PF)) 08:05: Q6HPRN, [place] injection 4 14 Starting Medi ivck mg Fri Branch 12/19/20 at 0305, Until [...] 25 mL, Univ ers % in water 16 Slow IV ity of (D50W) 08:03: Push, PRN, [place] injection 48 Starting Medica l 25 mL Fri Branch 12/19/20 at 0303, Until Discontinu ed, SAL, Blood Glucose < or = 70 mg/dL and patient is unable to swallow or has mental status changes. iohexol 2020- No [id number] 100mL 100 mL, Univers (OMNIPAQUE 12-19 Intravenou it y of 350 03:15: 02:50 s, ONCE, 1 [place] BULK-100 00 :00 dose, Anni Medica l mL) 12/18/20 at [place] injection 2215, 100 mL Routine vancomycin 2020- No 1000mg 1,000 mg, Univers (VANCOCIN) 12-19 IV ity of 1,000 mg in 01:00: 12:39 [place], [place] NaCl 0.9% 00 :06 Q12H ABX, Medic al (NS) 250 mL First dose Br anch VIAL-MATE on Anni IV 12/18/20 at piggyback 1999, Until Discontinu ed, 250 mL
Reas on for Anti-Infec tive: Empiric Therapy for Suspected Infection< br>Empiric Therapy Site: Urine
D uration of therapy: 72 hours piperacilli 2020- No 3.375g 3.375 g, Univers n-tazobacta 12-19 IV ity of m (ZOSYN) 01:00: [facility] [place] 3.375 g in 00 :00 ONCE, 1 Medica l NaCl 0.9% dose, Anni Branc h (NS) 100 mL 12/18/20 at MINI-BAG 2000, 100 mL
Reas on for Anti-Infec tive: Empiric Therapy for Suspected Infection< br>Empiric Therapy Site: Urine
D uration of therapy: 72 hours NaCl 0.9% 2020- No 1000mL at 999 Uni vers (NS) bolus 12-1916 mL/hr, ity of infusion 00:15: 02:47 1,000 mL, [place] 1,000 mL 00 :00 IV Medical [facility] ONCE, 1 dose, Anni 12/18/20 at 1915, STAT benzonatate 2020- No 100mg 100 mg, U nivers (TESSALON 12-19 Oral, ity of PERLES) 00:15: 23:17 ONCE, 1 [place] capsule 100 00 :00 dose, Anni Med ical mg 12/18/20 at Branch 1915, Routine ergocalcife 2019-09 2020- No [id number] Take 1 Univers rol, 1-11 12-18 capsule by ity of vitamin d2, 00:00: 05:59 mouth [place] 1,250 mcg 00 :00 weekly for Medi vick (50,000 6 doses. Branch unit) capsule ergocalcife 2019- 2020- No [id number] Take 1 Univers rol, 1-11 12-18 capsule by ity of vitamin d2, 00:00: 05:59 mouth [place] 1,250 mcg 00 :00 weekly for Medi vick (50,000 6 doses. Branch unit) capsule ergocalcife 2019- 2020- No [id number] Take 1 Univers rol, 1-11 12-18 capsule by ity of vitamin d2, 00:00: 05:59 mouth [place] 1,250 mcg 00 :00 weekly for Medi vick (50,000 6 doses. Branch unit) capsule ergocalcife 2019-09 2020- No [id number] Take 1 Univers rol, 1-11 12-18 capsule by ity of vitamin d2, 00:00: 05:59 mouth [place] 1,250 mcg 00 :00 weekly for Medi vick (50,000 6 doses. Branch unit) capsule collagenase 2019-09 Yes [id number] Apply to Univers 250 1-05 affected ity of unit/gram 00:00: area(s) [place] ointment 00 daily. Medical Branch collagenase 2019- Yes [id number] Apply to Univers 250 1-05 affected ity of unit/gram 00:00: area(s) [place] ointment 00 daily. Medical Branch collagenase 2020- Yes [id number] Apply to Univers 250 1-05 affected ity of unit/gram 00:00: area(s) [place] ointment 00 daily. Medical Branch collagenase 2020- Yes [id number] Apply to Univers 250 1-05 affected ity of unit/gram 00:00: area(s) [place] ointment 00 daily. Medical Branch collagenase 2020- Yes [id number] Apply to Univers 250 1-05 affected ity of unit/gram 00:00: area(s) [place] ointment 00 daily. Medical Branch collagenase 2020- Yes [id number] Apply to Univers 250 1-05 affected ity of unit/gram 00:00: area(s) [place] ointment 00 daily. Medical Branch collagenase 2019-09- No [id number] Apply to Univers 250 1-05 04-20 affected ity of unit/gram 00:00: 00:00 area(s[place] ointment 00 :00 daily. Medical Branch insulin NPH 2019-09- No [id number] 10U inject 10 Univers and regular - 12-06 Units ity of human 70-30 00:00: 05:59 under the [place] 100 unit/mL 00 :00 skin every Me dical (70-30) morning Branch injection for 30 days. insulin NPH 2019-09- No [id number] 10U inject 10 Univers and regular - 12-06 Units ity of human 70-30 00:00: 05:59 under the [place] 100 unit/mL 00 :00 skin every Me dical (70-30) morning Branch injection for 30 days. insulin NPH 2019-09- No [id number] 10U inject 10 Univers and regular 09-09 12-06 Units ity of human 70-30 00:00: 05:59 under the [place] 100 unit/mL 00 :00 skin every Me dical (70-30) morning Branch injection for 30 days. insulin NPH 2019-09- No [id number] 10U inject 10 Univers and regular 09-09 12-06 Units ity of human 70-30 00:00: [...] of 23:32: daily with [place] 39 breakfast. [facility] Branch atorvastati 2019-09 Yes 40mg Take 40 mg Univers n (LIPITOR) 1-04 by mouth ity of 40 mg 23:32: at [place] tablet 39 bedtime. [facility] Branch glimepiride 2019-09 Yes 2mg Take 2 mg U nivers 2 mg tablet 1-04 by mouth ity of 23:32: daily with [place] 39 breakfast. [facility] Branch atorvastati 2019-09 Yes 40mg Take 40 mg Univers n (LIPITOR) 1-04 by mouth ity of 40 mg 23:32: at [place] tablet 39 bedtime. [facility] Branch glimepiride 2019-09 Yes 2mg Take 2 mg U nivers 2 mg tablet 1-04 by mouth ity of 23:32: daily with [place] 39 breakfast. [facility] Branch atorvastati 2019-09 Yes 40mg Take 40 mg Univers n (LIPITOR) 1-04 by mouth ity of 40 mg 23:32: at [place] tablet 39 bedtime. [facility] Branch glimepiride 2019-09 Yes 2mg Take 2 mg U nivers 2 mg tablet 1-04 by mouth ity of 23:32: daily with [place] 39 breakfast. [facility] Branch atorvastati 2019-09 Yes 40mg Take 40 mg Univers n (LIPITOR) 1-04 by mouth ity of 40 mg 23:32: at [place] tablet 39 bedtime. [facility] Branch glimepiride 2019-09 Yes 2mg Take 2 mg U nivers 2 mg tablet 1-04 by mouth ity of 23:32: daily with [place] 39 breakfast. [facility] Branch losartan 2019-09 2020- No 100mg Take 100 Uni vers 100 mg -04 11-04 mg by ity of tablet 20:49: 00:00 mouth [place] 33 :00 daily. [facility] insulin NPH 2019-09 Yes 10U 10 Units, U nivers and regular 1-04 Subcutaneo it y of human 70-30 15:00: us, QAM, Jasmeet sanchezs (HUMULIN 00 First dose Medic al 70-30 U-100 on [facility] Branch INSULIN) 07/09/20 at 100 unit/mL 0900, (70-30) Until injection Discontinu 10 Units ed, Routine ergocalcife 2019-09 Yes [id number] 50,000 Un leatha rol 1-04 Units, ity of (vitamin 15:00: Oral, [place] d2) 00 QWEEKLY, Medical (CALCIFEROL First dose Br anch ) capsule on Wed 50,000 07/09/20 at Units 0900, Until Discontinu ed, Routine hydrALAZINE 2019-09 Yes 50mg 50 mg, Univ ers (APRESOLINE 1-04 Oral, Q8H, it y of ) tablet 50 04:00: First dose [place] mg 00 (after Medical last Branch modificati on) on Tue07/08/20 at 2200, Until Discontinu ed, Routine carvediloL 2019-09- No [id number] 12.5mg Take 1 Univers 12.5 mg - 12-05 tablet by ity of tablet 00:00: 05:59 mouth 2 [place] 00 :00 (two) Medical times Branch daily with meals for 30 days. hydrALAZINE 2019-09- No [id number] 50mg Take 1 Univers 50 mg - 12-05 tablet by ity of tablet 00:00: 05:59 mouth [place] 00 :00 every 8 Medical (eight) Branch hours for 30 days. insulin NPH 2019-09- No [id number] 15U inject 15 Univers and regular - 12-05 Units ity of human 70-30 00:00: 05:59 under the [place] 100 unit/mL 00 :00 skin every Me dical (70-30) evening Branch injection for 30 days. carvediloL 2019-09- No [id number] 12.5mg Take 1 Univers 12.5 mg 09-08 12-05 tablet by ity of tablet 00:00: 05:59 mouth 2 [place] 00 :00 (two) Medical times Branch daily with meals for 30 days. hydrALAZINE 2019-09- No [id number] 50mg Take 1 Univers 50 mg - 12-05 tablet by ity of tablet 00:00: 05:59 mouth [place] 00 :00 every 8 Medical (eight) Branch hours for 30 days. insulin NPH 2019-09- No [id number] 15U inject 15 Univers and regular 1-04 12-05 Units ity of human 70-30 00:00: 05:59 under the [place] 100 unit/mL 00 :00 skin every Me dical (70-30) evening Branch injection for 30 days. carvediloL 2019-09- No [id number] 12.5mg Take 1 Univers 12.5 mg - 12-05 tablet by ity of tablet 00:00: 05:59 mouth 2 [place] 00 :00 (two) Medical times Branch daily with meals for 30 days. hydrALAZINE 2019-09 2020- No [id number] 50mg Take 1 Univers 50 mg - 12-05 tablet by ity of tablet 00:00: 05:59 mouth [place] 00 :00 every 8 Medical (eight) Branch hours for 30 days. insulin NPH 2019-09- No [id number] 15U inject 15 Univers and regular - 12-05 Units ity of human 70-30 00:00: 05:59 under the [place] 100 unit/mL 00 :00 skin every Me dical (70-30) evening Branch injection for 30 days. carvediloL 2019-09- No [id number] 12.5mg Take 1 Univers 12.5 mg 09-08 12-05 tablet by ity of tablet 00:00: 05:59 mouth 2 [place] 00 :00 (two) Medical times Branch daily with meals for 30 days. hydrALAZINE 2019-09- No [id number] 50mg Take 1 Univers 50 mg - 12-05 tablet by ity of tablet 00:00: 05:59 mouth [place] 00 :00 every 8 Medical (eight) Branch hours for 30 days. insulin NPH 2019-09- No [id number] 15U inject 15 Univers and regular - 12-05 Units ity of human 70-30 00:00: 05:59 under the [place] 100 unit/mL 00 :00 skin every Me dical (70-30) evening Branch injection for 30 days. doxycycline 2019-09 2020- No [id number] 100mg Take 1 Univers hyclate 100 - 11-15 capsule by i ty of mg capsule 00:00: 05:59 mouth [place] 00 :00 every 12 Medical (twelve) Branch hours for 10 days. acidophilus 2019-2019- No [id number] 1g Take 1 Univers 100 million - 11-15 tablet by it y of cell tablet 00:00: 05:59 mouth 2 [place] 00 :00 (two) Medical times Branch daily for 10 days. doxycycline 2019- 2020- No [id number] 100mg Take 1 Univers hyclate 100 1-04 11-15 capsule by i ty of mg capsule 00:00: 05:59 mouth [place] 00 :00 every 12 Medical (twelve) Branch hours for 10 days. acidophilus 2019-09 2020- No [id number] 1g Take 1 Univers 100 million 09-08-15 tablet by it y of cell tablet 00:00: 05:59 mouth 2 [place] 00 :00 (two) Medical times [place] daily for 10 days. insulin NPH 2019-09 Yes 15U 15 Units, U nivers and regular 09-07 Subcutaneo it y of human 70-30 23:00: us, QPM, [place] (HUMULIN 00 First dose Medic al 70-30 U-100 on Tue INSULIN) 07/08/20 at 100 unit/mL 1700, (70-30) Until injection Discontinu 15 Units ed, Routine vancomycin 2019-09 Yes 15mg/kg 1,250 mg Univers 1250 mg in 09-07 (rounded ity o f NS 250 mL 15:00: from 185 [place] RTU IV 00 mg = 15 Medical Piggyback mg/kg ?79 Branc h 1,250 mg kg), IV Piggyback, Q24H ABX, First dose (after last modificati on) on Tue07/08/20 at 0900, Until Discontinu ed
Reas on for Anti-Infec tive: Documented Infection< br>Documen flor Infection Site: Skin / Soft Tissue
Duration of Therapy: 7 days glimepiride 2019-09 Yes 2mg 2 mg, Unive rs (AMARYL) 09-07 Oral, QAM ity of tablet 2 mg 14:00: WITH [place] 00 BREAKFAST, Medical First dose Branch on Tue07/08/20 at 0800, Until Discontinu ed, Routine atorvastati 2019-09 Yes 40mg 40 mg, Univ ers n (LIPITOR) 09-07 Oral, QHS, it y of tablet 40 03:00: First dose [place] mg 00 on [facility] 07/07/20 at Branch 2100, Until Discontinu ed, Routine losartan 2019-09 2020- No 100mg 100 mg, Univ ers (COZAAR) 09-0603 Oral, ity of tablet 100 21:00: 20:15 DAILY, [place] mg 00 :33 First dose Medical (after Branch last modificati on) on [facility] 07/07/20 at 1500, Until Discontinu ed, Routine metFORMIN 2019-09- No 500mg Take 500 Un leatha 500 mg 09-06 mg by ity of tablet 20:56: 00:00 mouth 2 [place] 38 :00 (two) Medical times [place] daily with meals. hydrALAZINE 2019-09- No 25mg 25 mg, Uni vers (APRESOLINE 09-06 Oral, Q8H, i ty of ) tablet 25 20:00: 20:15 First dose [place] mg 00 :33 on [facility] Medical 07/07/20 at Branch 1400, Until Discontinu ed, Routine NaCl 0.9% 2019-09 Yes 1000mL at 50 Unive rs (NS) IV 1-02 mL/hr, IV ity of infusion 16:30: Infusion, [place] 1,000 mL 00 CONTINUOUS Medic al , Starting Branch [facility] 07/07/20 at 1030, Until Discontinu ed, Routine collagenase 2019-09 Yes Topical Uni vers (SANTYL) 09-06 (Apply To ity of ointment 15:00: Affected [place] 00 Areas), Medical DAILY, Branch First dose on [facility] 07/07/20 at 0900, Until Discontinu ed, Routine vancomycin 2019-09- No 15mg/kg 1,250 mg Univers 1250 mg in 09-06 (rounded ity of NS 250 mL 00:00: 14:12 from 1,185 [place] RTU IV 00 :23 mg = 15 Medical Piggyback mg/kg ?79 Branc h 1,250 mg kg), IV Piggyback, Q12H ABX, First dose on [place] 07/06/20 at 1800, Until Discontinu ed
Reas on for Anti-Infec tive: Documented Infection< br>Documen flor Infection Site: Skin / Soft Tissue
Duration of Therapy: 7 days carvediloL 2019-09 Yes 12.5mg 12.5 mg, U nivers (COREG) 09-05 Oral, BID ity of tablet 12.5 23:00: MEALS, [place] mg 00 First dose Medical on [place] Branch 07/06/20 at 1700, Until Discontinu ed, Routine Sliding 2019-09 Yes Subcutaneo Univ ers Scale 09-05 us, TID ity of Insulin - 23:00: MEALS+HS, [place] Lispro 00 First dose Medical (HumaLOG) + on [facility] 07/06/20 at Testing 1700, Until Discontinu ed, Routine enoxaparin 2019-09 Yes 40mg 40 mg, Unive rs (LOVENOX) 09-05 Subcutaneo ity of injection 23:00: us, DAILY, [place] 40 mg 00 First dose Medical on [facility] 07/06/20 at 1700, Until Discontinu ed, Routine amLODIPine 2019-09- No 5mg 5 mg, Unive rs (NORVASC) 09-05 Oral, ity of tablet 5 mg 22:45: 16:29 DAILY, [place] 00 :50 First dose Medical on [facility] 07/06/20 at 1645, Until Discontinu ed, Routine glipiZIDE 2019-09- No 10mg 10 mg, Unive rs (GLUCOTROL) 09-05 Oral, ity of tablet 10 22:30: 20:56 BIDAC, [place] mg 00 :00 First dose Medical on [facility] 07/06/20 at 1630, Until Discontinu ed, Routine NaCl 0.9% 2019-09 No 1000mL at 100 Uni vers (NS) IV 09-05 mL/hr, IV ity of infusion 19:15: 16:29 Infusion, [place] 1,000 mL 00 :50 CONTINUOUS Medic al , Starting Branch [place] 07/06/20 at 1315, Until 07/07/20 at 1029, Routine hydralAZINE 2019-09 Yes 20mg 20 mg, Univ ers (APRESOLINE 09-05 Slow IV ity o f ) injection 18:37: Push, [place] 20 mg 07 Q4HPRN, Medical Starting [facility] 07/06/20 at 1237, Until Discontinu ed, STAT, SBP > 180, DBP > 120
Ind ication: Hypertensi ve Emergency glucagon 2019-09 Yes 1mg 1 mg, Univers (GLUCAGEN 09-05 Intramuscu ity of DIAGNOSTIC 18:10: lar, PRN, [place] KIT) 32 Starting Medical injection 1 [facility] mg 07/06/20 at 1210, Until Discontinu ed, SAL, Blood Glucose < or = 70 mg/dL and patient is unable to swallow or has mental changes. dextrose 50 2019-09 Yes 25mL 25 mL, Univ ers % in water 09-05 Slow IV ity of (D50W) 18:10: Push, PRN, [place] injection 32 Starting Medica l 25 mL [facility] 07/06/20 at 1210, Until Discontinu ed, SAL, Blood Glucose < or = 70 mg/dL and patient is unable to swallow or has mental status changes. HYDROcodone 2019-09 2020- No 1{tbl} 1 tablet, Univers -acetaminop 09-05 Oral, ity of hen (NORCO 18:10: 18:09 Q6HPRN, [place] 5) 5-325 mg 14 :14 Starting Medi vick tablet 1 [place] Branch tablet 07/06/20 at 1210, Until 07/08/20 at 1209, Routine, Pain (scale 4-6) acetaminoph 2019-09 Yes 650mg 650 mg, Un leatha en 09-05 Oral, ity of (TYLENOL) 18:10: Q6HPRN, [place] tablet 650 13 Starting Medic al mg [place] Branch 07/06/20 at 1210, Until Discontinu ed, Routine, Pain (scale 1-3) ampicillin- 2019-09- No 3000mg 3,000 mg, [facility] sulbactam 09-05 IV ity of (UNASYN) 17:45: 17:23 [place], [place] 3,000 mg in 00 :00 ONCE, 1 Medic al NaCl 0.9% dose, [facility] h (NS) 100 mL 07/06/20 at MINI-BAG 1145, 100 mL
Reas on for Anti-Infec tive: Empiric Therapy for Suspected Infection< br>Empiric Therapy Site: Skin / Soft tissue
Duration of therapy: 72 hours Vital Signs Vital Name Observation Time Observation Value Comments Source Systolic blood 2023-04-15 08:00:00 172 mm[Hg] Univer sity [facility] Diastolic blood 2023-04-15 08:00:00 57 [facility]Hg[facility] 2023-04-15 08:00:00 65 /min [facility] Respiratory rate 2023-04-15 08:00:00 18 /min Univ ersity of [place] [facility] Oxygen saturation in 2023-04-15 08:00:00 98 /min University of Arterial blood by [place] [employer] vick Pulse oximetry Branch Body temperature 2023-04-15 04:35:00 37.11 Anna Univ ersity of [place] [facility] Body height 2023-04-15 04:35:00 182.9 cm Universi ty [facility] [place] [facility] Body weight 2023-04-15 04:35:00 66.679 kg Universi ty [facility] [place] [facility] BMI 2023-04-15 04:35:00 19.94 kg/m2 [facility] [place] [facility] Body height 2023-04-08 20:37:00 182.9 cm [facility] [place] [facility] Body weight 2023-04-08 20:37:00 68.04 kg [facility] [place] [facility] BMI 2023-04-08 20:37:00 20.34 kg/m2 [facility] [place] [facility] Systolic blood 2023-04-06 19:38:00 128 mm[Hg] Univer sity of pressure [place] [facility] Diastolic blood 2023-04-06 19:38:00 59 mm[Hg] Unive rsity of pressure [place] [facility] Heart rate 2023-04-06 19:38:00 59 /min [facility] [place] [facility] Body temperature 2023-04-06 19:38:00 36.44 Anna Univ [facility] [place] [facility] Respiratory rate 2023-04-06 19:38:00 18 /min Univ ersity [facility] [place] [facility] Body height 2023-04-06 19:38:00 182.9 cm [facility] [place] [facility] Body weight 2023-04-06 19:38:00 68.04 kg [facility] [place] [facility] BMI 2023-04-06 19:38:00 20.34 kg/m2 [facility] [place] [facility] Oxygen saturation in 2023-04-06 19:38:00 99 /min University of Arterial blood by [facility] Pulse oximetry Branch Systolic blood 2023-02-16 21:42:00 127 mm[Hg] Univer sity of pressure [place] [facility] Diastolic blood 2023-02-16 21:42:00 70 mm[Hg] Unive rsity of pressure [place] [facility] Heart rate 2023-02-16 21:42:00 67 /min [facility]i ty [facility] [place] [facility] Body temperature 2023-02-16 21:42:00 36.44 Anna Univ [facility]ity [facility] [place] [facility] Respiratory rate 2023-02-16 21:42:00 18 /min Univ ersity [facility] [place] [facility] Body height 2023-02-16 21:42:00 182.9 cm [facility] [place] [facility] Body weight 2023-02-16 21:42:00 67.314 kg [facility] [place] [facility] BMI 2023-02-16 21:42:00 20.13 kg/m2 [facility] [place] [facility] Oxygen saturation in 2023-02-16 21:42:00 100 /min University of Arterial blood by [facility] vick Pulse oximetry Branch Systolic blood 2022-11-15 16:46:00 148 mm[Hg] Univer sity of pressure [place] [facility] Diastolic blood 2022-11-15 16:46:00 63 mm[Hg] Unive rsity of pressure [place] [facility] Heart rate 2022-11-15 16:45:00 50 /min [facility]i ty [facility] [place] [facility] Body height 2022-11-15 16:45:00 182.9 cm [facility] [place] [facility] Body weight 2022-11-15 16:45:00 71.215 kg [facility] [place] [facility] BMI 2022-11-15 16:45:00 21.29 kg/m2 [facility] ty [facility] [place] [facility] Oxygen saturation in 2022-11-15 16:45:00 97 /min University of Arterial blood by [facility] vick Pulse oximetry Branch Systolic blood 2022-11-02 14:44:00 174 mm[Hg] Univer sity of pressure [place] [facility] Diastolic blood 2022-11-02 14:44:00 82 mm[Hg] Unive rsity of pressure [place] [facility] Heart rate 2022-11-02 14:44:00 67 /min [facility] [place] [facility] Body temperature 2022-11-02 14:44:00 37 Anna Univ [facility] [place] [facility] Respiratory rate 2022-11-02 14:44:00 18 /min Univ ersity [facility] [place] [facility] Body height 2022-11-02 14:44:00 177.8 cm [facility]i ty [facility] [place] [facility] Body weight 2022-11-02 14:44:00 68.493 kg [facility] BMI 2022-11-02 14:44:00 21.67 kg/m2 [facility] Oxygen saturation in 2022-11-02 14:44:00 97 /min [facility] Arterial blood by [facility] Pulse oximetry Branch Systolic blood 2022-10-29 14:53:00 173 mm[Hg] [facility] Diastolic blood 2022-10-29 14:53:00 87 mm[Hg] [facility] Heart rate 2022-10-29 14:53:00 61 /min [facility] Body temperature 2022-10-29 14:53:00 36.33 Anna [facility] Respiratory rate 2022-10-29 14:53:00 18 /min [facility] Body height 2022-10-29 14:53:00 177.8 cm [facility] Body weight 2022-10-29 14:53:00 68.493 kg [facility] BMI 2022-10-29 14:53:00 21.67 kg/m2 [facility] Oxygen saturation in 2022-10-29 14:53:00 96 /min [facility] blood by [facility] Pulse oximetry Branch Systolic blood 2022-10-26 14:40:00 144 mm[Hg] [facility] Diastolic blood 2022-10-26 14:40:00 64 mm[Hg] [facility] Heart rate 2022-10-26 14:40:00 57 /min [facility] Body temperature 2022-10-26 14:40:00 36.56 Anna [facility] Respiratory rate 2022-10-26 14:40:00 18 /min [facility] Body height 2022-10-26 14:40:00 177.8 cm [facility] Body weight 2022-10-26 14:40:00 68.493 kg [facility] BMI 2022-10-26 14:40:00 21.67 kg/m2 [facility] Oxygen saturation in 2022-10-26 14:40:00 97 /min [facility] blood by [facility] Pulse oximetry Branch Systolic blood 2022-10-25 16:54:00 147 mm[Hg] [facility] Diastolic blood 2022-10-25 16:54:00 59 mm[Hg] [facility] Heart rate 2022-10-25 16:54:00 52 /min [facility] Body height 2022-10-25 16:54:00 182.9 cm [facility] Body weight 2022-10-25 16:54:00 71.804 kg [facility] BMI 2022-10-25 16:54:00 21.47 kg/m2 [facility] Oxygen saturation in 2022-10-25 16:54:00 96 /min [facility] blood by [facility] Pulse oximetry Branch Systolic blood 2022-10-22 17:50:00 161 mm[Hg] [facility] Diastolic blood 2022-10-22 17:50:00 69 mm[Hg] [facility] Heart rate 2022-10-22 17:50:00 58 /min [facility] Body temperature 2022-10-22 17:50:00 36.39 Anna [facility] Respiratory rate 2022-10-22 17:50:00 18 /min [facility] Oxygen saturation in 2022-10-22 17:50:00 96 /min [facility] blood by [facility] Pulse oximetry Branch Systolic blood 2022-09-25 22:43:00 187 mm[Hg] [facility] Diastolic blood 2022-09-25 22:43:00 70 mm[Hg] [facility] Heart rate 2022-09-25 22:43:00 61 /min [facility] Body temperature 2022-09-25 22:43:00 36.39 Anna [facility] Respiratory rate 2022-09-25 22:43:00 19 /min [facility] Oxygen saturation in 2022-09-25 22:43:00 95 /min [facility] Body weight 2022-09-25 09:34:00 72.485 kg [facility] BMI 2022-09-25 09:34:00 21.67 kg/m2 [facility] Body height 2022-09-21 23:47:00 182.9 cm [facility] Systolic blood 2022-09-15 16:59:00 169 mm[Hg] [facility] Diastolic blood 2022-09-15 16:59:00 67 mm[Hg] [facility] Heart rate 2022-09-15 16:59:00 52 /min [facility] Body temperature 2022-09-15 16:58:00 36.89 Anna [facility] Respiratory rate 2022-09-15 16:58:00 18 /min [facility] Body height 2022-09-15 16:58:00 182.9 cm [facility] Body weight 2022-09-15 16:58:00 75.932 kg [facility] BMI 2022-09-15 16:58:00 22.70 kg/m2 [facility] Oxygen saturation in 2022-09-15 16:58:00 98 /min [facility] blood by [facility] Pulse oximetry Branch Systolic blood 2022-08-25 23:01:00 168 mm[Hg] [facility] Diastolic blood 2022-08-25 23:01:00 116 mm[Hg] [facility] Heart rate 2022-08-25 23:01:00 70 /min [facility] Respiratory rate 2022-08-25 23:01:00 18 /min [facility] Oxygen saturation in 2022-08-25 23:01:00 98 /min [facility] by [facility] Pulse oximetry Branch Body temperature 2022-08-25 20:25:00 35.78 Anna [facility] Body height 2022-08-25 20:25:00 167.6 cm [facility] Body weight 2022-08-25 20:25:00 74.844 kg [facility] BMI 2022-08-25 20:25:00 26.63 kg/m2 [facility] Systolic blood 2022-08-02 19:18:00 171 mm[Hg] [facility] Diastolic blood 2022-08-02 19:18:00 65 mm[Hg] [facility] Heart rate 2022-08-02 19:18:00 56 /min [facility] Body temperature 2022-08-02 19:18:00 36.22 Anna [facility] Respiratory rate 2022-08-02 19:18:00 18 /min [facility] Body height 2022-08-02 19:18:00 185.4 cm [facility] Body weight 2022-08-02 19:18:00 74.39 kg [facility] BMI 2022-08-02 19:18:00 21.64 kg/m2 [facility] Oxygen saturation in 2022-08-02 19:18:00 98 /min [facility] Ar[facility] blood by [facility] vick Pulse oximetry Branch Heart rate 2022-07-27 21:04:00 62 /min [facility] Respiratory rate 2022-07-27 21:04:00 20 /min [facility] Oxygen saturation in 2022-07-27 21:04:00 97 /min [facility] by [facility] Pulse oximetry Branch Systolic blood 2022-07-27 20:57:00 168 mm[Hg] [facility] Diastolic blood 2022-07-27 20:57:00 72 mm[Hg] [facility] Body temperature 2022-07-27 19:15:00 36.22 Anna [facility] Body height 2022-07-12 18:03:00 182.9 cm [facility] Body weight 2022-07-12 18:03:00 79.8 kg [facility] BMI 2022-07-12 18:03:00 23.85 kg/m2 [facility] Heart rate 2022-07-27 19:43:00 57 /min [facility] Respiratory rate 2022-07-27 19:43:00 18 /min [facility] Oxygen saturation in 2022-07-27 19:43:00 95 /min [facility] by [facility] Pulse oximetry Branch Systolic blood 2022-07-27 19:39:00 164 mm[Hg] [facility] Diastolic blood 2022-07-27 19:39:00 84 mm[Hg] [facility] Body temperature 2022-07-27 19:15:00 36.22 Anna [facility] Body height 2022-07-12 18:03:00 182.9 cm [facility] Body weight 2022-07-12 18:03:00 79.8 kg [facility] BMI 2022-07-12 18:03:00 23.85 kg/m2 [facility] Systolic blood 2022-07-20 22:34:00 150 mm[Hg] [facility] Diastolic blood 2022-07-20 22:34:00 78 mm[Hg] [facility] Heart rate 2022-07-20 22:34:00 59 /min [facility] Body temperature 2022-07-20 22:34:00 36.44 Anna [facility] Respiratory rate 2022-07-20 22:34:00 16 /min [facility] Oxygen saturation in 2022-07-20 22:34:00 95 /min [facility] blood by [facility] Pulse oximetry Branch Body weight 2022-07-20 09:00:00 76.975 kg [facility] BMI 2022-07-20 09:00:00 23.02 kg/m2 [facility] Body height 2022-07-15 01:00:00 182.9 cm [facility] Systolic blood 2022-07-05 18:52:00 153 mm[Hg] [facility] Diastolic blood 2022-07-05 18:52:00 62 mm[Hg] [facility] Heart rate 2022-07-05 18:51:00 60 /min [facility] Body temperature 2022-07-05 18:51:00 36.33 Anna [facility] Respiratory rate 2022-07-05 18:51:00 18 /min [facility] Body weight 2022-07-05 18:51:00 79.833 kg [facility] BMI 2022-07-05 18:51:00 23.87 kg/m2 [facility] Oxygen saturation in 2022-07-05 18:51:00 96 /min [facility] Arter[facility] blood by [facility] vick Pulse oximetry Branch Systolic blood 2022-06-07 03:00:00 158 mm[Hg] [facility] Diastolic blood 2022-06-07 03:00:00 73 mm[Hg] [facility] Heart rate 2022-06-07 03:00:00 61 /min [facility] Respiratory rate 2022-06-07 03:00:00 16 /min [facility] Oxygen saturation in 2022-06-07 03:00:00 99 /min [facility] by [facility] Pulse oximetry Branch Body temperature 2022-06-07 01:06:00 35.94 Anna [facility] Body height 2022-06-07 01:06:00 182.9 cm [facility] Body weight 2022-06-07 01:06:00 72.576 kg [facility] BMI 2022-06-07 01:06:00 21.70 kg/m2 [facility] Systolic blood 2022 18:25:00 149 mm[Hg] [facility] Diastolic blood 2022 18:25:00 64 mm[Hg] [facility] Heart rate 2022 18:24:00 64 /min [facility] Body height 2022 18:24:00 185.4 cm [facility] Body weight 2022 18:24:00 71.668 kg [facility] BMI 2022 18:24:00 20.85 kg/m2 [facility] Oxygen saturation in 2022 18:24:00 97 /min [facility] blood by [place] [employer] [facility] Pulse oximetry Branch Systolic blood 2022-05-15 22:20:00 168 mm[Hg] [facility] Diastolic blood 2022-05-15 22:20:00 133 mm[Hg] [facility] Heart rate 2022-05-15 22:20:00 77 /min [facility] Oxygen saturation in 2022-05-15 22:20:00 96 /min [facility] blood by [facility] Pulse oximetry Branch Respiratory rate 2022-05-15 21:30:00 20 /min [facility] Body temperature 2022-05-15 19:32:00 36.56 Anna [facility] Body height 2022-05-15 19:32:00 162.6 cm [facility] Body weight 2022-05-15 19:32:00 72.576 kg [facility] BMI 2022-05-15 19:32:00 27.46 kg/m2 [facility] Systolic blood 2020-12-23 17:01:00 169 mm[Hg] [facility] Diastolic blood 2020-12-23 17:01:00 77 mm[Hg] [facility] Heart rate 2020-12-23 17:01:00 59 /min [facility] Body temperature 2020-12-23 17:01:00 36.22 Anna [facility] Respiratory rate 2020-12-23 17:01:00 18 /min [facility] Oxygen saturation in 2020-12-23 17:01:00 99 /min [facility] by [place] [employer] [facility] Pulse oximetry Branch Body height 2020-12-19 05:54:00 170.2 cm [facility] Body weight 2020-12-19 05:54:00 80.882 kg [facility] BMI 2020-12-19 05:54:00 27.93 kg/m2 [facility] Systolic blood 2020-07-09 17:11:00 122 mm[Hg] Univer sity of pressure [facility] Diastolic blood 2020-07-09 17:11:00 64 mm[Hg] Unive rsity of pressure [facility] Heart rate 2020-07-09 17:11:00 59 /min [facility] Body temperature 2020-07-09 17:11:00 36.56 Anna [facility] Respiratory rate 2020-07-09 17:11:00 18 /min [facility] in 2020-07-09 17:11:00 97 /min [facility] Arterial blood by [facility] Pulse oximetry Branch Body weight 2020-07-09 10:47:00 80.468 kg [facility] BMI 2020-07-09 10:47:00 26.97 kg/m2 [facility] Body height 2020-07-06 18:12:00 172.7 cm [facility] Systolic blood 2023-04-11 16:30:00 158 mm[Hg] [facility] pressure Diastolic blood 2023-04-11 16:30:00 72 mm[Hg] [facility] pressure Heart rate 2023-04-11 16:30:00 60 /min [facility] Respiratory rate 2023-04-11 16:30:00 18 /min [facility] Oxygen saturation in 2023-04-11 16:30:00 98 /min [facility] Arterial blood by Pulse oximetry Body temperature 2023-04-11 16:13:00 36.61 Anna [facility] Body height 2023-04-11 13:36:00 182.9 cm [facility] Body weight 2023-04-11 13:36:00 66.225 kg [facility] BMI 2023-04-11 13:36:00 19.80 kg/m2 [facility] Systolic (mm Hg) 2023-02-02 18:14[facility]00 [facility]mm [facility] 2023-02-02 18:14:00 Mem [facility] [place] Heart Rate 2023-02-02 14:41:00 [facility] 2023-02-02 13:30:00 6 [ft_i] [facility] Weight 2023-02-02 13:30:00 [facility] BMI Calculated 2023-02-02 13:30:00 Memori [facility] [place] Systolic (mm Hg) 2022-12-23 23:00:00 Adi rial [place] Diastolic (mm Hg) 2022-12-23 23:00:00 Mem orial [place] Heart Rate 2022-12-23 17:58:00 [facility] Height 2022-12-23 17:02:00 6 [ft_i] [facility] Weight 2022-12-23 17:02:00 [facility] BMI Calculated 2022-12-23 17:02:00 [facility] Systolic (mm Hg) 2022-12-03 01:00:00 Adi [facility] Diastolic (mm Hg) 2022-12-03 01:00:00 Mem [facility] [place] Height 2022-12-02 14:42:00 6 [ft_i] [facility] Weight 2022-12-02 14:42:00 [facility] BMI Calculated 2022-12-02 14:42:00 [facility] Procedures Procedure Date / Time Performing Clinician Source Performed URINALYSIS 2023-04-15 07:53:00 [facility] AMMONIA, PLASMA 2023-04-15 06:10:00 [facility] COMP. METABOLIC PANEL 2023-04-15 06:10:00 Augusto Sawyer [facility] ([id number]) [facility] CT ABDOMEN PELVIS WO 2023-04-15 05:33:00 Augusto Sawyer [facility] CONTRAST Medical Branch LIPASE 2023-04-15 04:52:00 [facility] CBC WITH DIFF 2023-04-15 04:52:00 [facility]Y 2023-04-15 04:27:19 Doctor Unassigned, [facility] PRACTICES [place] [facility] CONSENT/REFUSAL FOR 2023-04-15 04:26:18 Doctor Unassigned, [facility] DIAGNOSIS AND TREATMENT [place] [facility] [place] SURGICAL PATHOLOGY REQUEST 2023-04-11 16:48:00 [facility] 2023-04-11 15:07:00 Tu[facility]bb[facility] AR AN ELECTIVE 2023-04-11 14:21:39 Paris Hahn [facility] SUPRAGLOTTIC AIRWAY AMPUTATION, DIGIT, HAND 2023-04-11 14:06:00 [facility] ESTIMATED GFR 2023-04-11 14:05:00 Melody Farah spital ESTIMATED GFR 2023-04-11 13:57:00 MaeAbbott [facility] POC PANEL 2023-04-11 13:57:00 [facility] HEMOGLOBIN A1C 2023-04-08 16:39:00 Kayla Mcneal [facility] ospital POC GLUCOSE 2023-03-31 20:14:00 [facility] 2023-03-31 17:22:00 [facility] HEPAT[facility]IS B SURFACE 2023-03-31 13:47:00 [facility] ANTIGEN HEPATITIS B SURFACE 2023-03-31 13:47:00 [facility] ANTIBODY HEMODIALYSIS 2023-03-31 13:24:17 [facility] POC GLUCOSE 2023-03-31 12:35:00 [facility] ESTIM[facility] GFR 2023-03-31 08:45:00 [facility]ABOLIC 2023-03-31 08:45:00 [facility] PANEL CBC WITH PLATELET AND 2023-03-31 08:45:00 [facility] DIFFERENTIAL MAGNESIUM LEVEL 2023-03-31 08:45:[address] [facility] POC GLUCOSE 2023-03-31 08:41:00 [facility] POC [facility]SE 2023-03-31 01:52:00 [facility] OR FL < 1 HOUR 2023-03-30 22:35:00 [facility] 2023-03-30 22:12:00 [facility] AR AN ELECTIVE 2023-03-30 21:12:00 Mario Ellis spital SUPRAGLOTTIC AIRWAY Tariq LIGATION OR BANDING, 2023-03-30 21:03:00 [facility] FISTULA, AV TYPE AND SCREEN 2023-03-30 17:07:00 Krystle Chaudhari glental [place] [facility] POC GLUCOSE 2023-03-30 16:53:00 [facility] P[facility]SE 2023-03-30 12:53:00 [facility] XR CHEST 1 VW PORTABLE 2023-03-30 10:15:50 Say [facility] POC GLUCOSE 2023-03-30 09:49:00 [facility] COMPREHENSIVE METABOLIC 2023-03-30 08:50:00 [facility] PAN[facility] CBC WITH PLATELET AND 2023-03-30 08:50:00 [facility] DIFFERENTIAL MAGNESIUM LEVEL 2023-03-30 08:50:[address] [facility] ESTIMATED GFR 2023-03-30 08:50:00 [facility] POC GLUCOSE 2023-03-30 02:34:00 [facility] CBC WITH PLATELET AND 2023-03-29 21:38:00 [facility] DIFFERENTIAL Guill[facility] COMPREHENSIVE METABOLIC 2023-03-29 21:38:[address] [facility] PANEL Guillermina PROTHROMBIN TIME WITH INR 2023-03-29 21:38:00 [facility] PARTIAL THROMBOPLASTIN 2023-03-29 21:38:00 [facility] TIME (PTT) ESTIMATED GFR 2023-03-29 21:38:00 [facility] XR FINGER 2+ VW LEFT 2023-03-29 21:34:32 Welsh Yumiko [facility] MEDICAL RELEASE/CLEARANCE 2023-02-16 05:01:00 Doctor Unassigned, [facility] FORMS [place] [facility] MEDICAL RELEASE/CLEARANCE 2022-11-18 05:01:00 Doctor Unassigned, [facility] FORMS [place] [facility] EXTERNAL PROVIDER - ADC 2022-11-17 05:01:00 Doctor Unassigned, [facility] CARDIOLOGY [place] [facility] NM MYOCARDIUM PERFUSION 2022-11-16 16:17:00 Suman, [facility] STRESS AND REST Medical Branch NM MYOCARDIUM PERFUSION 2022-11-16 16:17:00 Suman, [facility]ESS AND REST Medical Branch NM MYOCARDIUM PERFUSION 2022-11-16 16:17:00 Suman, [facility] STRESS AND REST Medical Branch NM MYOCARDIUM PERFUSION 2022-11-16 16:17:00 Suman, [facility] STRESS AND REST [facility] EXTERNAL PROVIDER - ADC 2022-10-25 06:01:00 Doctor Unassigned, [facility] CARDIOLOGY [place] [facility] CBC WITH DIFF 2022-10-22 15:11:00 Jennifer Garcia [facility] PHYSICIAN ORDERS 2022-10-14 06:01:00 Doctor Unassigned, [facility] [place] [facility] POCT GLUCOSE (AUTOMATED) 2022-09-25 22:40:00 Ana Rich [facility] COVID-19 (ID NOW RAPID 2022-09-25 20:30:00 Theo [facility] TESTING) [facility] POCT GLUCOSE (AUTOMATED) 2022-09-25 17:39:00 Ana Rich [facility] POCT GLUCOSE (AUTOMATED) 2022-09-25 13:55:00 Ana Rich [facility] PHOSPHORUS 2022-09-25 09:36:00 Theo [facility] MAGNESIUM 2022-09-25 09:36:00 [facility] TROPONIN I 2022-09-25 09:36:00 Bry Ruth [facility] BASIC METABOLIC PANEL (NA, 2022-09-25 09:36:00 Renee Venegas [facility] K, CL, CO2, GLUCOSE, BUN, Medica l Branch CREATININE, CA) N-TERMINAL PRO-BNP 2022-09-25 09:36:00 Bry Ruth [facility] POCT GLUCOSE (AUTOMATED) 2022-09-25 02:30:00 Ana Rich [facility] POCT GLUCOSE (AUTOMATED) 2022-09-24 22:26:00 Ana Rich [facility] URINE CULTURE 2022-09-24 17:52:00 Theo [facility] POCT GLUCOSE (AUTOMATED) 2022-09-24 17:31:00 Ana Rich [facility] URINALYSIS 2022-09-24 15:13:00 Vikram [facility] POCT GLUCOSE (AUTOMATED) 2022-09-24 13:44:00 Ana Rich [facility] TROPONIN I 2022-09-24 11:26:00 Bry Ruth [facility] BASIC METABOLIC PANEL (NA, 2022-09-24 11:26:00 Landy Lock [facility] K, CL, CO2, GLUCOSE, BUN, Medica l Branch CREATININE, CA) CBC WITH DIFF 2022-09-24 11:26:00 Landy Lock [facility] N-TERMINAL PRO-BNP 2022-09-24 11:26:00 [facility] POCT GLUCOSE (AUTOMATED) 2022-09-24 03:18:00 [facility]) 2022-09-23 22:30:00 [facility] PO[facility]SE (AUTOMATED) 2022-09-23 17:46:00 [facility] PO[facility]SE (AUTOMATED) 2022-09-23 13:59:00 Ana Rich [facility] TROPONIN I 2022-09-23 11:12:00 Bry Ruth [facility] BASIC METABOLIC PANEL (NA, 2022-09-23 11:12:00 Landy Lock [facility] K, CL, CO2, GLUCOSE, BUN, Medica l Branch CREATININE, CA) CBC WITH DIFF 2022-09-23 11:12:00 Landy Lock [facility] N-TERMINAL PRO-BNP 2022-09-23 11:12:00 [facility] POCT GLUCOSE (AUTOMATED) 2022-09-23 02:30:00 Ana Rich [facility] AMBER AURIS SURVEILLANCE 2022-09-22 22:50:00 Paris Sue [facility] BY PCR (INFECTION CONTROL [facility] PURPOSES) POCT GLUCOSE (AUTOMATED) 2022-09-22 22:33:00 Ana Rich [facility] XR CHEST 1 VW 2022-09-22 19:36:44 Jennifer Garcia [facility] POCT GLUCOSE (AUTOMATED) 2022-09-22 17:29:00 Ana Rich [facility] POCT GLUCOSE (AUTOMATED) 2022-09-22 14:10:00 Ana Rich [facility] MAGNESIUM 2022-09-22 09:35:00 Ana Rich [facility] BASIC METABOLIC PANEL (NA, 2022-09-22 09:35:00 Ana Rich [facility] K, CL, CO2, GLUCOSE, BUN, Medica l Branch CREATININE, CA) CBC WITH DIFF 2022-09-22 09:35:00 Ana Rich [facility] GLYCOSYLATED HEMOGLOBIN 2022-09-22 09:35:00 Clarisa Kaur [facility] (A1C) [facility] N-TERMINAL PRO-BNP 2022-09-22 09:35:00 Bry Ruth [facility] URINALYSIS 2022-09-22 07:39:00 [facility]OMATED) 2022-09-22 02:20:00 Ana Rich [facility] HB ECG ROUTINE & RHYTHM 2022-09-21 22:05:29 Landy Romo [facility] STRIP [facility] Branch CT ABDOMEN PELVIS WO 2022-09-21 20:00:03 Landy Romo [facility] CONTRAST Medical Branch PHOSPHORUS 2022-09-21 17:34:00 Ana Rich [facility] COMP. METABOLIC PANEL 2022-09-21 17:34:00 Landy Romo [facility] ([id number]) [facility] CBC WITH DIFF 2022-09-21 17:34:00 Landy Romo [facility] GLYCOSYLATED HEMOGLOBIN 2022-09-21 17:34:00 [facility] (A1C) [facility] CONSENT/REFUSAL FOR 2022-09-21 16:37:52 Doctor Unassigned, [facility] DIAGNOSIS AND TREATMENT [place] [facility] INCISION PENIS 2022-07-27 17:57:00 [facility] POCT GLUCOSE (AUTOMATED) 2022-07-27 16:11:00 [facility] POCT GLUCOSE (AUTOMATED) 2022-07-27 16:11:00 [facility] DAY SURGERY - ADC 2022-07-27 06:01:00 Doctor Unassigned, [facility] POCT GLUCOSE (AUTOMATED) 2022-07-20 22:35:00 Ana Rich [facility] POCT GLUCOSE (AUTOMATED) 2022-07-20 17:45:00 Ana Rich [facility] POCT GLUCOSE (AUTOMATED) 2022-07-20 14:08:00 Ana Rich [facility] BASIC METABOLIC PANEL (NA, 2022-07-20 10:18:00 Gadiel Jaramillo [facility] K, CL, CO2, GLUCOSE, BUN, Medica l Branch CREATININE, CA) CBC WITH DIFF 2022-07-20 10:18:00 [facility]MIN[facility] PRO-BNP 2022-07-20 10:18:00 Gadiel [facility] POCT GLUCOSE (AUTOMATED) 2022-07-20 02:44:00 Ana Rich [facility] POCT GLUCOSE (AUTOMATED) 2022-07-19 23:06:00 Ana Rich [facility] POCT GLUCOSE (AUTOMATED) 2022-07-19 17:49:00 Ana Rich [facility] POCT GLUCOSE (AUTOMATED) 2022-07-19 14:03:00 Ana Rich [facility] XR CHEST 1 VW 2022-07-19 11:43:00 [facility]NESIUM 2022-07-19 10:32:00 [facility] BASIC METABOLIC PANEL (NA, 2022-07-19 10:32:00 [facility], CL, CO2, GLUCOSE, BUN, [facility] CREATININE, CA) LIPID PANEL ([id number])(TOTAL 2022-07-19 10:32:00 [facility] TRIGLYCERID[facility], HDL) CBC WITH DIFF 2022-07-19 10:32:00 Clint [facility] N-TERMINAL PRO-BNP 2022-07-19 10:32:00 Gadiel [facility]illo [facility] POCT GLUCOSE (AUTOMATED) 2022-07-19 02:25:00 Ana Rich [facility] POCT GLUCOSE (AUTOMATED) 2022-07-18 22:27:00 Ana Rich [facility] POCT GLUCOSE (AUTOMATED) 2022-07-18 18:03:00 Ana Rich [facility] BASIC METABOLIC PANEL (NA, 2022-07-18 17:15:00 Ana Rich [facility] K, CL, CO2, GLUCOSE, BUN, Medica l Branch CREATININE, CA) POCT GLUCOSE (AUTOMATED) 2022-07-18 13:24:00 [facility] ([facility]OMATED) 2022-07-18 02:48:00 Ana [facility] POCT GLUCOSE (AUTOMATED) 2022-07-17 22:31:00 Ana [facility] PO[facility] GLUCOSE (AUTOMATED) 2022-07-17 17:48:00 Ana Rich versity [facility] XR CHEST 1 VW 2022-07-17 16:31[facility]) 2022-07-17 13:52:00 Ana Rich [facility] BASIC METABOLIC PANEL (NA, 2022-07-17 10:04:00 Renee Venegas [facility] K, CL, CO2, GLUCOSE, BUN, Medica l Branch CREATININE, CA) N-TERMINAL PRO-BNP 2022-07-17 10:04:00 [facility] ([facility]OMATED) 2022-07-17 02:44:00 [facility] PO[facility] GLU[facility]SE (AUTOMATED) 2022-07-16 23:14:00 [facility] PO[facility] GLU[facility]SE (AUTOMATED) 2022-07-16 17:58:00 [facility] PO[facility] GLU[facility]SE (AUTOMATED) 2022-07-16 14:10:00 [facility] PO[facility] GLU[facility]SE (AUTOMATED) 2022-07-16 11:30:00 Ana Rich verstimothy [facility] MAGNESIUM 2022-07-16 10:29:00 [facility] PROSTATIC SPECIFIC ANTIGEN 2022-07-16 10:29:00 Ana Rich [facility] BASIC METABOLIC PANEL (NA, 2022-07-16 10:29:00 [facility] K, CL, CO2, GLUCOSE, BUN, Medica l Branch CREATININE, CA) CBC WITH DIFF 2022-07-16 10:29:00 Gaidel Jaramillo [facility] N-TERMINAL PRO-BNP 2022-07-16 10:29:00 Gadiel [facility] US RETROPERITONEAL 2022-07-16 02:35:00 Jennifer Garcia [facility] POCT GLUCOSE (AUTOMATED) 2022-07-16 01:57:00 Ana Rich [facility] POCT GLUCOSE (AUTOMATED) 2022-07-15 23:11:00 Ana Rich [facility] CREATINE KINASE 2022-07-15 19:08:00 Jennifer Garcia [facility] URIC ACID 2022-07-15 19:08:00 Jennifer Garcia [facility] THYROID STIMULATING 2022-07-15 19:08:00 Jennifer Garcia [facility] HORMONE [facility] INTACT PTH CALCIUM GROUP 2022-07-15 19:08:00 Jennifer Garcia [facility] PROTEIN CREAT RATIO URINE 2022-07-15 19:08:00 Jennifer Garcia [facility] POCT GLUCOSE (AUTOMATED) 2022-07-15 17:57:00 Paris Sue [facility] TRANSTHORACIC ECHO (TTE) 2022-07-15 17:35:00 Ana Rich [facility] POCT GLUCOSE (AUTOMATED) 2022-07-15 14:13:00 Paris Sue [facility] MAGNESIUM 2022-07-15 10:41:00 Gadiel Jaramillo [facility] BASIC METABOLIC PANEL (NA, 2022-07-15 10:41:00 Gadiel Jaramillo [facility] K, CL, CO2, GLUCOSE, BUN, [facility] CREATININE, CA) CBC WITH DIFF 2022-07-15 10:41:00 Gadiel Jaramillo [facility] AMBER AURIS CULTURE 2022-07-15 03:31:00 Gadiel Jaramillo [facility] HEPATIC FUNCTION PANEL 2022-07-15 03:28:00 Gadiel Jaramillo [facility] ([id number]) (ALB,T.PRO,BILI Medical Branch T,BU/BC,ALT,AST,ALK PHOS) GLYCOSYLATED HEMOGLOBIN 2022-07-15 03:28:00 Gadiel Jaramillo [facility] (A1C) [facility] POCT GLUCOSE (AUTOMATED) 2022-07-15 03:09:00 Paris Sue [facility] CT ABDOMEN PELVIS WO 2022-07-14 20:20:00 Matias Brown [facility] CONTRAST [facility] URINE CULTURE 2022-07-14 19:03:00 Kevin Matias [facility] COMP. METABOLIC PANEL 2022-07-14 18:44:00 Matias Brown [facility] ([id number]) [facility] CBC WITH DIFF 2022-07-14 18:44:00 Kevin Matias [facility] PROTHROMBIN TIME / INR 2022-07-14 18:44:00 Matias Brown [facility] ACTIVATED PARTIAL THRMPLAS 2022-07-14 18:44:00 Matias Brown [facility] URINALYSIS 2022-07-14 18:44:00 Kevin [facility] N-TERMINAL PRO-BNP 2022-07-14 18:44:00 Clarisa Kaur [facility] MEDICAL RELEASE/CLEARANCE 2022-07-14 06:01:00 Doctor Coco [facility] FORMS [place] [facility] PHYSICIAN ORDERS 2022-07-09 05:01:00 Doctor Coco [facility] Name [facility] EXTERNAL PROVIDER RECORDS 2022-07-07 05:01:00 Doctor Coco [facility] [place] [facility] EXTERNAL PROVIDER RECORDS 2022-07-05 05:01:00 Doctor Coco [facility] [place] [facility] URINALYSIS 2022-06-07 01:10:00 Kymberly Jones [facility] CONSENT/REFUSAL FOR 2022 17:58:24 [facility] [place] [facility] URINALYSIS 2022-05-15 20:03:00 Matias Brown [facility] POCT GLUCOSE (AUTOMATED) 2022-05-15 19:59:00 Matias Brown [facility] POCT GLUCOSE (AUTOMATED) 2020-12-23 17:06:00 Thierry [place] [facility] POCT GLUCOSE (AUTOMATED) 2020-12-23 12:58:00 Thierry [place] Un [facility] BASIC METABOLIC PANEL (NA, 2020-12-23 10:15:00 Ana Rich [facility] K, CL, CO2, GLUCOSE, BUN, Medica l Branch CREATININE, CA) POCT GLUCOSE (AUTOMATED) 2020-12-23 01:17:00 Thierry [place] Un [facility] POCT GLUCOSE (AUTOMATED) 2020-12-22 21:30:00 Thierry [place] Un i[facility] POCT GLUCOSE (AUTOMATED) 2020-12-22 16:41:00 Thierry [place] [facility] POCT GLUCOSE (AUTOMATED) 2020-12-22 12:42:00 Thierry [place] Un [facility] MAGNESIUM 2020-12-22 10:13:00 Sergio [facility] TROPONIN I 2020-12-22 10:13:00 Sergio [facility] BASIC METABOLIC PANEL (NA, 2020-12-22 10:13:00 Lanre Hill [facility] K, CL, CO2, GLUCOSE, BUN, Medica l Branch CREATININE, CA) CBC WITH DIFF 2020-12-22 10:13:00 Sergio [facility] N-TERMINAL PRO-BNP 2020-12-22 10:13:00 Lanre Hill [facility] POCT GLUCOSE (AUTOMATED) 2020-12-22 08:28:00 Thierry [place] Un i[facility] POCT GLUCOSE (AUTOMATED) 2020-12-22 00:54:00 [facility] FECES CULTURE 2020-12-22 00:21:00 Gadiel Jaramillo [facility] FECAL LEUKOCYTES 2020-12-22 00:21:00 Gadiel Jaramillo [facility] CLOSTRIDIUM DIFFICILE 2020-12-22 00:21:00 Gadiel Jaramillo [facility] TOXIN [facility] POCT GLUCOSE (AUTOMATED) 2020-12-21 21:26:00 [facility] [place] [facility] POCT GLUCOSE (AUTOMATED) 2020-12-21 16:24:00 [facility] [place] [facility] I 2020-12-21 15:21:00 Gadiel Jaramillo [facility] POCT GLUCOSE (AUTOMATED) 2020-12-21 13:28:00 [facility]ry [place] [facility] POCT GLUCOSE (AUTOMATED) 2020-12-21 13:02:00 [facility] CBC WITH DIFF 2020-12-21 09:42:00 Gadiel Jaramillo [facility] COMP. METABOLIC PANEL 2020-12-21 09:41:00 Lew Jacobson [id number] N-TERMINAL PRO-BNP 2020-12-21 09:41:00 Lew Jacobson [facility] VANCOMYCIN TROUGH 2020-12-21 02:27:00 Lanre Hill [facility] POCT GLUCOSE (AUTOMATED) 2020-12-21 01:04:00 Thierry [place] Un [facility] POCT GLUCOSE (AUTOMATED) 2020-12-20 21:32:00 Thierry [place] Un [facility] POCT GLUCOSE (AUTOMATED) 2020-12-20 16:37:00 Thierry [place] Un [facility] POCT GLUCOSE (AUTOMATED) 2020-12-20 12:49:00 [facility] CYTO URINE 2020-12-20 12:47:00 Ju Kasper [facility] URIC ACID 2020-12-20 10:28:00 Lew Jacobson [facility] MAGNESIUM 2020-12-20 10:28:00 Kavon ila [facility] RENAL PANEL 2020-12-20 10:28:00 [facility] 2020-12-20 10:28:00 Kavon ila [facility] COMP. METABOLIC PANEL 2020-12-20 10:28:00 Lew Jacobson [facility] ([id number]) [facility] INTACT PTH CALCIUM GROUP 2020-12-20 10:28:00 Ju Kasper [facility] CBC WITH DIFF 2020-12-20 10:28:00 Kavon ila [facility] N-TERMINAL PRO-BNP 2020-12-20 10:28:00 Lew Jacobson [facility] VITAMIN D, 25-OH 2020-12-20 10:28:00 Ranjith [facility] POCT GLUCOSE (AUTOMATED) 2020-12-20 01:25:00 Thierry [facility] TRANSTHORACIC ECHO (TTE) 2020-12-19 21:50:38 Lew Jacobson [facility] COMPLETE W/ CONTRAST Medical [facility] POCT GLUCOSE (AUTOMATED) 2020-12-19 21:21:[address] [facility] NEUTROPHIL CYTOPLASMIC AB, 2020-12-19 17:01:00 Ju Kasper [facility] IGG [facility] GBM AB, IGG (DILIP) 2020-12-19 17:01:00 Ju Kasper [facility] ANTI-NUCLEAR ANTIBODY 2020-12-19 17:01:00 [facility] S[facility] HEPATITIS B SURFACE 2020-12-19 17:01:00 Ju Kasper [facility] ANTIBODY [facility] HEPATITIS B SURFACE 2020-12-19 17:01:00 [facility] HCV ANTIBODY 2020-12-19 17:01:00 Ranjith [facility] RPR (QUANTITATIVE) 2020-12-19 17:01:00 Ranjith [facility] KAPPA-LAMBDA QUANT. FLC 2020-12-19 17:01:[address] [facility] WITH RATIO [facility] IMMUNOFIXATION, SERUM 2020-12-19 17:01:00 Ranjith [facility] HIV 1/2 AG-AB WITH REFLEX 2020-12-19 17:01:00 [facility] 2020-12-19 16:59:00 Lew Jacobson [facility] OCCULT (GUAIAC) BLOOD 2020-12-19 16:22:00 Lew Jacobson [facility] POCT GLUCOSE (AUTOMATED) 2020-12-19 16:21:[address] [facility] POTASSIUM, URINE RANDOM 2020-12-19 16:02:00 Ranjith [facility] INTACT PTH CALCIUM GROUP 2020-12-19 15:44:00 Jennifer Garcia [facility] RENAL ARTERY DUPLEX - BY 2020-12-19 14:23:00 Jennifer Garcia [facility] VASCULAR LAB [facility] RESPIRATORY PANEL BY PCR 2020-12-19 13:24:00 Lew Jacobson [facility] POCT GLUCOSE (AUTOMATED) 2020-12-19 12:46:00 Thierry Austin [facility] URIC ACID 2020-12-19 09:48:00 Lew Jacobson [facility] LIPASE 2020-12-19 09:48:00 Lew Jacobson [facility] SEDIMENTATION RATE 2020-12-19 09:48:00 Lew Jacobson [facility] IRON PANEL 2020-12-19 09:43:00 Lew Jacobson [facility] OSMOLALITY URINE 2020-12-19 09:42:00 Kavon [facility] VITAMIN B12, LEVEL 2020-12-19 09:42:00 Kavon ila [facility] PNEUMOCOCCAL ANTIGEN 2020-12-19 09:42:00 Lew Jacobson [facility] VITAMIN D, 25-OH 2020-12-19 09:42:00 Kavon ila [facility] SODIUM, URINE RANDOM 2020-12-19 09:42:00 Kavon ila [facility] PROTEIN CREAT RATIO URINE 2020-12-19 09:42:00 Lew Jacobson [facility] PROTHROMBIN TIME / INR 2020-12-19 09:40:00 Lew Jacobson [facility] URIC ACID 2020-12-19 09:36:00 Kavon ila [facility] MAGNESIUM 2020-12-19 09:36:00 Kavon ila [facility] OSMOLALITY, SERUM OR 2020-12-19 09:36:00 Kavon ila [facility] PLASMA [facility] TROPONIN I 2020-12-19 09:36:00 Kavon [facility] COMP. METABOLIC PANEL 2020-12-19 09:36:00 Kavon ila [facility] ([id number]) [facility] CBC WITH DIFF 2020-12-19 09:36:00 Kavon ila [facility] MYCOPLASMA PNEUMONIAE 2020-12-19 09:36:00 Kavon ila [facility] ANTIBODY, IGM [facility] N-TERMINAL PRO-BNP 2020-12-19 09:36:00 Kavon ila [facility] PROCALCITONIN 2020-12-19 09:36:00 Kavon [facility] CREATINE KINASE 2020-12-19 09:35:00 Jennifer Garcia [facility] URIC ACID 2020-12-19 09:35:00 Jennifer Garcia [facility] FERRITIN SERUM 2020-12-19 09:35:00 Kavon ila [facility] LIPID PANEL ([id number])(TOTAL 2020-12-19 09:35:00 Lew Jacobson [facility] CHOLESTEROL, [facility] TRIGLYCERIDES, HDL) ACUTE CARE VENOUS BLOOD 2020-12-19 09:30:00 Lew Jacobson [facility] GAS [facility] BLOOD CULTURE SCREEN 2020-12-19 05:13:00 Thierry Austin [facility] URINE CULTURE 2020-12-19 05:13:00 Thierry Austin [facility] EKG-12 LEAD 2020-12-19 04:05:52 Thierry Austin [facility] CT ABDOMEN PELVIS W 2020-12-19 03:06:48 Thierry Austin [facility] CONTRAST [facility] XR CHEST 1 VW 2020-12-18 23:46:56 Singer [facility] LACTIC ACID WHOLE BLOOD 2020-12-18 23:43:[address] [facility] URINALYSIS 2020-12-18 23:41:00 Singer [facility] PHOSPHORUS 2020-12-18 23:39:00 Kavon [facility] CREATINE KINASE 2020-12-18 23:39:00 Kavon [facility] URIC ACID 2020-12-18 23:39:00 Kavon [facility] LIPASE 2020-12-18 23:39:00 Thierry Austin [facility] MAGNESIUM 2020-12-18 23:39:00 Kavon [facility] TROPONIN I 2020-12-18 23:39:00 Singer [facility] THYROID STIMULATING 2020-12-18 23:39:00 Lew Jacobson [facility] HORMONE [facility] COMP. METABOLIC PANEL 2020-12-18 23:39:00 Toro Jackson [facility] ([id number]) Medical [facility] DIFF CONSULT 2020-12-18 23:39:00 Lew Jacobson [facility] INTERPRETATION [facility] CBC WITH DIFF 2020-12-18 23:39:00 Singer Toro [facility] GLYCOSYLATED HEMOGLOBIN 2020-12-18 23:39:00 Lew Jacobson [facility] (A1C) [facility] N-TERMINAL PRO-BNP 2020-12-18 23:39:00 Toro Jackson [facility] Medical Branch COVID-19 (ID NOW RAPID 2020-12-18 23:39:00 Singer Toro [facility] TESTING) Medical [facility] LAB ONLY COVID 2020-12-18 23:39:00 [facility] NOTICE OF PRIVACY 2020-12-18 21:51:02 Doctor Unassigned, [facility] PRACTICES [place] [facility] CONSENT/REFUSAL FOR 2020-12-18 21:48:26 Doctor Unassrajiv, [facility] DIAGNOSIS AND TREATMENT [place] [facility] AUTHORIZATION FOR RELEASE 2020-08-22 06:01:00 Doctor Unassigned, [facility] Name [facility] ASSIGNMENT OF BENEFITS 2020-07-22 21:44:34 Doctor Unassigned, [facility] Name [facility] POCT GLUCOSE (AUTOMATED) 2020-07-09 22:39:00 Ana Rich [facility] POCT GLUCOSE (AUTOMATED) 2020-07-09 18:02:00 Ana Rich [facility] VANCOMYCIN TROUGH 2020-07-09 14:25:00 Donta Moody [facility] POCT GLUCOSE (AUTOMATED) 2020-07-09 13:50:00 Ana Rich [facility] C4 COMPLEMENT 2020-07-09 12:18:00 Jennifer Garcia [facility] BASIC METABOLIC PANEL (NA, 2020-07-09 12:18:00 Jennifer Garcia [facility] K, CL, CO2, GLUCOSE, BUN, Medica l Branch CREATININE, CA) HEPATITIS B SURFACE 2020-07-09 12:18:00 Jennifer Garcia [facility] ANTIBODY Medical [facility] HEPATITIS B SURFACE 2020-07-09 12:18:00 Jennifer Garcia [facility] ANTIGEN [facility] HCV ANTIBODY 2020-07-09 12:18:00 Jennifer Garcia [facility] HBC ANTIBODY (IGM & IGG) 2020-07-09 12:18:00 Jennifer Garcia U [facility] POCT GLUCOSE (AUTOMATED) 2020-07-09 02:11:00 [facility] PO[facility]SE (AUTOMATED) 2020-07-08 22:41:00 [facility] SHELBY MULTI LEVEL BY 2020-07-08 18:47:34 Donta Moody [facility] VASCULAR LAB [facility] POCT GLUCOSE (AUTOMATED) 2020-07-08 18:01:00 Ana Rich [facility] INTACT PTH CALCIUM GROUP 2020-07-08 17:14:00 Jennifer Garcia U [facility] POCT GLUCOSE (AUTOMATED) 2020-07-08 13:57:00 Ana Rich [facility] BASIC METABOLIC PANEL (NA, 2020-07-08 11:04:00 Jennifer Garcia [facility] K, CL, CO2, GLUCOSE, BUN, Medica l Branch CREATININE, CA) VITAMIN D, 25-OH 2020-07-08 11:04:00 Jennifer Garcia [facility] POCT GLUCOSE (AUTOMATED) 2020-07-07 22:48:00 Ana Rich [facility] PROTEIN CREAT RATIO URINE 2020-07-07 18:19:00 Jennifer Garcia [facility] RANDOM [facility] POCT GLUCOSE (AUTOMATED) 2020-07-07 17:49:00 Ana Rich [facility] US RETROPERITONEAL LIMITED 2020-07-07 15:32:47 Ana Rich [facility] BILATERAL DUPLEX SCAN OF 2020-07-07 15:19:06 Ana Rich [facility] ARTERY BY VASCULAR LAB [facility] POCT GLUCOSE (AUTOMATED) 2020-07-07 13:44:00 Abdullah, Ana [facility] BASIC METABOLIC PANEL (NA, 2020-07-07 10:02:00 Ana Rich [facility] K, CL, CO2, GLUCOSE, BUN, Medica l Branch CREATININE, CA) CBC WITH DIFF 2020-07-07 10:02:00 Ana Rich [place] [facility] POCT GLUCOSE (AUTOMATED) 2020-07-07 01:54:00 Ana Rich [facility] HB ECG ROUTINE & RHYTHM 2020-07-06 23:42:17 Ana Rich [facility] POCT GLUCOSE (AUTOMATED) 2020-07-06 22:29:00 Ana Rich [facility] CT FOOT RIGHT WO CONTRAST 2020-07-06 19:09:23 Ana Rich [facility] BLOOD CULTURE SCREEN 2020-07-06 16:41:00 Kasey Padgett [facility] COVID-19 (ID NOW RAPID 2020-07-06 16:41:00 Kasey Padgett [facility] TESTING) [facility] XR FOOT 3+ VW RIGHT 2020-07-06 15:57:44 Kasey Padgett [facility] BLOOD CULTURE SCREEN 2020-07-06 15:54:00 Kasey Padgett [facility] HEPATIC FUNCTION PANEL 2020-07-06 15:54:00 Kasey Padgett [facility] ([id number]) (ALB,T.PRO,BILI [facility] T,BU/BC,ALT,AST,ALK PHOS) BASIC METABOLIC PANEL (NA, 2020-07-06 15:54:00 Kasey Padgett [facility] K, CL, CO2, GLUCOSE, BUN, Medica l Branch CREATININE, CA) SEDIMENTATION RATE 2020-07-06 15:54:00 Kasey Padgett [facility] CBC WITH DIFF 2020-07-06 15:54:00 Kasey Padgett [facility] GLYCOSYLATED HEMOGLOBIN 2020-07-06 15:54:00 Ana Rich [facility] (A1C) [facility] LACTIC ACID WHOLE BLOOD 2020-07-06 15:53:00 Kasey Padgett [facility] NOTICE OF PRIVACY 2020-07-06 15:29:44 Doctor Unassigned, [facility] PRACTICES [place] [facility] AGREEMENTS AUTHORIZATIONS 2020-07-06 05:01:00 Doctor Unassigned, [facility] AND IRREVOCABLE [place] [facility] ASSIGNMENTS (FORM 2001) Plan of Care Planned Activity Planned Date Details Comments Source Future Scheduled 2023-04-13 [facility] 10:22:40 malignant neoplasm of colon (procedure) [code = 249265648] Future Scheduled 2023-04-13 [facility] 10:22:40 malignant neoplasm of colon (procedure) [code = 101196659] Future Scheduled 2023-04-13 [facility] 10:22:40 malignant neoplasm of colon (procedure) [code = 694168008] Future Scheduled 2023-04-13 COVID[facility]19 [facility] [code = COVID-19 VACCINE (#1)] Future Scheduled 2023-04-13 Pneumococcal Vaccine: [facility] 10:22:40 Pediatrics (0 to 5 Years) and At-Risk Patients (6 to 64 Years) (1 - PCV) [code = Pneumococcal Vaccine: Pediatrics (0 to 5 Years) and At-Risk Patients (6 to 64 Years) (1 - PCV)] Future Scheduled 2023-04-13 [facility] 10:22:40 malignant neoplasm of colon (procedure) [code = 623775259] Future Scheduled 2023-04-13 [facility] 10:22:40 malignant neoplasm of colon (procedure) [code = 199161796] Future Scheduled 2023-04-13 SHINGLES VACCINES (1 [facility] 10:22:40 of 2) [code = SHINGLES VACCINES (1 of 2)] Future Scheduled 2023-04-13 INFLUENZA VACCINE [facility] Test 10:22:40 [code = INFLUENZA VACCINE] Encounters Start End Encounter Admission Attending Care Care Encounter Source Date/Time Date/Time Type Type Clinicians Facility Department ID 2023-03-25 Outpatient [facility] [id number] [place] 07:53:11 [id number] [facility] 2023-03-16 Outpatient [facility] [id number] [place] 08:51:33 [id number] [facility] 2023-03-14 Outpatient [facility] [id number] [place] 11:27:02 [id number] [facility] 2023-03-11 Outpatient [facility] [id number] [place] 09:18:22 [id number] [facility] 2023-03-09 Outpatient [facility] [id number] [place] 06:03:20 [id number] [facility] 2023-02-28 Outpatient [facility] [id number] [place] 08:41:54 [id number] [facility] 2023-02-25 Outpatient [facility] [id number] [place] 09:31:05 [id number] [facility] 2023-01-27 Outpatient [facility] [id number] [place] 09:43:48 [id number] [facility] 2023-01-06 Outpatient [facility] [id number] [place] 15:23:10 [id number] [facility] 2022-12-15 Outpatient [facility] [id number] [place] 13:12:16 [id number] [facility] 2022-11-18 Outpatient [facility] [id number] [place] 08:04:13 [id number] [facility] 2022-11-12 Outpatient [facility] [id number] [place] 14:54:55 [id number] [facility] 2022-11-04 Outpatient [facility] [id number] [place] 07:48:47 [id number] [facility] 2022-11-03 Outpatient [facility] [id number] [place] 13:53:19 [id number] [facility] 2022-10-26 Outpatient [facility] [id number] [place] 15:16:11 [id number] [facility] 2022-10-25 Outpatient [facility] [id number] [place] 09:51:08 [id number] [facility] 2022-10-19 Outpatient [facility] [id number] [place] 08:50:20 [id number] [facility] 2021-07-05 Emergency [facility] [id number] Univers 13:15:30 timothy of [facility] 2023-10-07 2023-10-07 Outpatient Corey SUAREZ [facility] [id number] Univers 13:45:00 13:45:00 AMANDA wiggins [facility] 2023-08-16 2023-08-16 Outpatient Corey SUAREZ [facility] [id number] Univers 10:00:00 10:00:00 AMANDA aguirre o rosalie [facility] 2023-04-27 2023-04-27 Outpatient VELASQUEZ [facility] [id number] [place] 09:30:00 09:30:00 [facility] 2023-04-14 2023-04-15 Emergency X KEVIN, [facility] ERT [id number] Univers 23:38:00 03:46:00 MATIAS aguirre [facility] 2023-04-14 2023-04-15 Emergency Augusto Sawyer [facility] 1.2.8 40.114 [id number] Univers 23:38:00 03:46:00 [facility]13.10 [facility] 4.2.7.2.686 [facility] [id number] [address] 2023-04-11 2023-04-11 Hospital Mae, 1.2.840.1 [id number] Methodi 06:23:00 12:15:00 Encounter Vincent 36075.1.[address] Fermín 3.430.2.7 Hospit a .3.724572 l .8 2023-04-11 2023-04-11 Surgery Mae, 1.2.840.1 [id number] Methodi 09:15:00 10:25:[address] Fermín 3.430.2.7 Hospit a .3.971072 l .8 2023-04-11 2023-04-11 Anesthesia Melody 1.2.840.1 [id number] Methodi 09:07:00 10:00:00 Event FredisKayla machuca 61421.1.[address] 3.430.2.7 Hospit a .3.338390 l .8 2023-04-11 2023-04-11 Outpatient MAE, [facility] [id number] 581 [place] 00:00:00 00:00:00 VINC[address] 2023-04-08 2023-04-08 [facility] [id number] [id number] Univers 15:00:00 15:16:14 AMANDA itlynsey o f [facility] 2023-04-08 2023-04-08 Nurse Nurse, Adc Surgery [facility] 1.2. 840.114 [id number] Univers 15:00:00 15:16:14 Visit Amanda Suarez 350.1.13. 10 [facility] 4.2.7.2.686 Adriana BLOUNTIO [id number] Ar dical [address] 2023-04-08 2023-04-08 Pre-Admiss Mae, 1.2.840.1 [id number] Methodi 11:00:00 12:00:00 ion Vini 16978.1.[address] Testing Fermín 3.430.2.7 Hospit a .3.913536 l .8 2023-04-08 2023-04-08 Outpatient R [facility] [id number] Univers 11:00:00 11:00:00 ity [facility] 2023-04-08 2023-04-08 Office Mae, 1.2.840.1 [id number] 7377 Methodi 10:20:00 10:39:52 Visit Vini 84158.1.[address] Fermín 3.430.2.7 Hospit a .3.143495 l .8 2023-04-08 2023-04-08 Outpatient [facility] [id number] [place] 09:00:00 09:00:00 [facility] 2023-04-08 2023-04-08 Outpatient R [facility] [id number] [facility] 08:00:00 08:00:[facility] 2023-04-08 Outpatient MAE, [facility] [id number] [place] 00:00:00 00:00:00 VINCENT 615 Method i 2023-04-08 2023-04-08 Outpatient MAE, [facility] [id number] [place] 00:00:00 00:00:00 VINCENT 077 Method i 2023-04-08 2023-04-08 Orders Mae, 1.2.840.1 [id number] Methodi 00:00:00 00:00:00 Only Vini 05157.1.[address] Fermín 3.430.2.7 Hospit a .3.290729 l .8 2023-04-08 2023-04-08 Transcribe Tu 1.2.840.1 [id number] [id number] Methodi 00:00:00 00:00:00 Orders Vini 14934.1.[address] Fermín 3.430.2.7 Hospit a .3.786808 l .8 2023-04-06 2023-04-06 [facility] [id number] [facility] 14:15:00 16:05:33 AMANDA wiggins [facility] 2023-04-06 2023-04-06 Office Suarez, [facility] 1.2.840.114 [id number] [facility] 14:15:00 16:05:33 Visit Amanda SANCHEZ 350.1.13.10 [facility] 4.2.7.2.686 [facility] [id number] Ar dical [address] 2023-04-04 2023-04-04 Telephonic MARIANO Eng [facility] 1.2.840.114 [id number] [place] 07:45:00 08:00:00 Encounter [facility] 350.1.13.58 [place] [address] 9.2.7.2.686 [id number] 2 2023-03-29 2023-03-31 [facility] Rafa Ochoa 1.2.840.1 1041 [id number] Methodi 15:58:00 16:26:00 Encounter Avinash Deal 54073.1.[address] 3.430.2.7 Hospit a .3.294131 .8 2023-03-29 2023-03-31 Inpatient AVINASH DEAL [facility] [id number] [place] 00:00:00 00:00:[address] 2023-03-30 2023-03-30 Anesthesia Mario Ellis 1.2.840.1 [id number] Methodi 16:02:00 17:13:00 Event Kamron Hernandez 00519.1.[address] 3.430.2.7 Hospit a .3.886544 l .8 2023-03-30 2023-03-30 Surgery Emmanuel, 1.2.840.1 [id number] Methodi 16:00:00 17:10:00 Rodolfo [place] 33800.1.[address] 3.430.2.7 Hospit a .3.955034 l .8 2023-03-23 2023-03-23 Outpatient [facility] [id number] [place] 11:00:00 13:46:51 Health 2023-03-11 2023-03-11 Office Velasquez [facility] 1.2.840.114 [id number] [place] 09:30:00 14:11:26 Visit Devon [facility] 350.1.13.[address] [facility] 9.2.7.2.686 SPECIALTY [id number] CLINIC 5 2023-02-22 2023-02-22 Outpatient [facility] [id number] [place] 10:00:00 10:00:00 [facility] 2023-02-17 2023-02-17 [facility] 1.2.018.974 [id number] [facility] 00:00:00 00:00:00 Saud SANCHEZ 350.1.13.10 ity [facility] [place] [id number] Ar dical NAL 059 [facility] 2023-02-16 2023-02-16 Outpatient Corey SUAREZ [facility] [id number] [facility] 16:30:00 16:56:13 AMANDA itlynsey o f [facility] 2023-02-16 2023-02-16 Office [facility] 1.2.840.114 [id number] [facility] 16:30:00 16:56:13 Visit Amanda SANCHEZ 350.1.13.10 ity [facility] [place] [id number] Ar dical NAL 204 [facility] 2023-02-16 2023-02-16 Telephone [facility] 1.2.404.565 [id number] Univers 00:00:00 00:00:00 Saud SANCHEZ 350.1.13.10 ity of [place].2.[place] [id number] [facility] 059 [facility] 2023-02-16 2023-02-16 Orders Doctor JAMES 1.2.840.114 [id number] Univers 00:00:00 00:00:00 Only Unassigned, LYNETTE 350.1.13.10 ity of [facility] 4.2.7.2.686 Osiel as [id number] [place] [address] [address] 2023-02-14 2023-02-14 [facility]patient [facility] [id number] [id number] Univers 10:30:00 10:30:00 AMANDA aguirre o f [facility] 2023-02-02 2023-02-02 Day [facility] [id number] Memoria 12:40:00 18:20:00 Surgery [place] 02 [facility] 2023-02-02 2023-02-02 Day [facility] [id number] Memoria 12:40:00 18:20:00 Surgery [place] 02 [facility] 2023-02-02 2023-02-02 Outpatient VELASQUEZ SE [facility]SE [id number] MH 07:40:00 13:20:00 DEVON bunn [facility] 2023-02-02 2023-02-02 Outpatient SILVANA Eng MHSE [id number] 07:40:00 13:20:00 Devon [place] 2023-01-11 2023-01-11 Office Velasquez [facility] 1.2.840.114 [id number] [place] 09:30:00 11:48:27 Visit Devon [facility] 350.1.13.58 Demetrio WEBB 1 9.2.7.2.686 [id number] 2 2022-12-23 2022-12-23 Day [facility] [id number] Memoria 16:48:00 23:20:00 Surgery [place] 01 [facility] 2022-12-23 2022-12-23 Day [facility] [id number] 5 Memoria 16:48:00 23:20:00 Surgery [place] [address] [facility] 2022-12-23 2022-12-23 Outpatient VELASQUEZ, MHSE MHSE [id number] MH 11:48:00 18:20:00 [facility] 2022-12-23 2022-12-23 Outpatient Velasquez, MHSE MHSE [id number] 11:48:00 18:20:00 Devon [place] 2022-12-23 2022-12-23 Outpatient VELASQUEZ, [facility] [id number] [place] 15:30:00 15:30:00 [facility] 2022-12-21 2022-12-21 Outpatient VELASQUEZ, [facility] [id number] [place] 10:00:00 10:00:00 [facility] 2022-12-14 2022-12-14 Office Velasquez [facility] 1.2.840.114 [id number] [place] 09:00:00 09:00:00 Visit [facility] 350.1.13.58 [facility] 9.2.7.2.686 [id number] 2 2022-12-02 2022-12-03 Day [facility] [id number] 5 Memoria 13:50:00 01:21:00 Surgery [place] 00 [facility] 2022-12-02 2022-12-03 Day [facility] [id number] 5 Memoria 13:50:00 01:21:00 Surgery [place] 00 [facility] 2022-12-02 2022-12-02 Outpatient VELASQUEZ, MHSE MHSE [id number] MH 08:50:00 20:21:00 [facility] 2022-12-02 2022-12-02 Outpatient Velasquez, MHSE MHSE [id number] 08:50:00 20:21:00 Devon [place] 2022-12-02 2022-12-02 Outpatient VELASQUEZ, [facility] [id number] [place] 11:30:00 11:30:00 [facility] 2022-11-25 2022-11-25 Outpatient [facility] [id number] [place] 13:00:00 13:00:00 [facility] 2022-11-19 2022-11-19 Telephone TIFFANY Shahid 1.2.840.114 [id number] Univers 00:00:00 00:00:00 Etienne DANIEL 350.1.13.10 i ty [facility] [place] [id number] Ar dical NAL [address] [facility] 2022-11-18 2022-11-18 Orders Doctor JAMES 1.2.840.114 [id number] Univers 00:00:00 00:00:00 Only Unassigned, LYNETTE 350.1.13.10 ity of [place] [facility] 4.2.7.2.686 Osiel as [id number] [facility] [address] 2022-11-17 2022-11-17 Orders Doctor JAMES 1.2.840.114 [id number] Univers 00:00:00 00:00:00 Only Unassigned, LYNETTE 350.1.13.10 ity of [place] [facility] 4.2.7.2.686 [place]iel as [id number] [address] 2022-11-16 2022-11-16 [facility] 1.2.840.114 [id number] [facility] Univers 08:32:42 08:32:42 Encounter Saud [place] 350.1.13.10 ity of [facility] [place] [id number] [address] 2022-11-16 2022-11-16 [facility] 1.2.840.114 [id number] [facility] Univers 08:32:18 08:32:18 Encounter Saud [place] 350.1.13.10 ity of [facility] [place] [id number] [address] 2022-11-16 2022-11-16 [facility] 1.2.840.114 [id number] [facility] Univers 08:31:08 08:31:08 Encounter Saud [place] 350.1.13.10 ity of [facility] 4.2.[place] [id number] [address] 2022-11-16 2022-11-16 Outpatient R [facility] [id number] Univers 08:30:35 08:30:00 SAUD aguirre o rosalie [facility] 2022-11-16 2022-11-16 [facility] 1.2.840.114 [id number] Univers 08:30:00 08:30:00 Encounter Saud SANCHEZ 350.1.13.10 ity of [place] [id number] [facility] [address] 2022-11-15 2022-11-15 Out[facility] [id number] Univers 11:30:00 12:06:17 AMANDA aguirre o rosalie [facility] 2022-11-15 2022-11-15 Office Suarez, [facility] 1.2.840.114 [id number] [facility] 11:30:00 12:06:17 Visit Amanda SANCHEZ 350.1.13.10 ity of [facility] 4.2.7.2.[place] [id number] Ar dical [facility] 204 [facility] 2022-11-11 2022-11-11 Outpatient [facility] [id number] Univers 00:00:00 00:00:00 SAUD wiggins [facility] 2022-11-11 2022-11-11 Telephone [facility] 1.2.398.772 [id number] Univers 00:00:00 00:00:00 Saud SANCHEZ 350.1.13.10 ity of [place].7.2.[place] [id number] Ar dical NAL 9 [facility] 2022-11-04 2022-11-04 Telephone [facility] 1.2.216.936 [id number] Univers 00:00:00 00:00:00 Saud SANCHEZ 350.1.13.10 ity of [place].7.2.[place] [id number] Ar dical NAL 9 [facility] 2022-11-02 2022-11-02 Nurse 1, Adc Infusion Chair [facility] 1.2. 840.114 [id number] Univers 08:30:00 11:00:00 Visit Jennifer Garcia 350.1.13.10 ity of [place].2.[place] [id number] [address] 2022-11-02 2022-11-02 [facility] [id number] Univers 08:30:00 08:30:00 MANAF ity [facility] 2022-10-29 2022-10-29 Nurse 1, Adc Infusion Chair [facility] 1.2. 840.114 [id number] Univers 08:30:00 11:00:00 Visit Jennifer Garcia [place] 350.1.13.10 ity of [place] 4.2.7.2.[place] [id number] [address] 2022-10-29 2022-10-29 Outpatient [facility] [id number] Univers 08:30:00 08:30:00 MANAF ity [facility] 2022-10-26 2022-10-26 Nurse 1, Adc Infusion Chair [facility] 1.2. 840.114 [id number] [facility] 08:30:00 11:00:00 Visit Jennifer Garcia [place] 350.1.13.10 ity of [place] 4.2.7.2.[place] [id number] [address] 2022-10-26 2022-10-26 Outpatient [facility] [id number] Univers 08:30:00 08:30:00 MANAF ity [facility] 2022-10-26 2022-10-26 Telephone [facility] 1.2.421.937 [id number] Univers 00:00:00 00:00:00 Saud [place] 350.1.13.10 ity of [place] 4.2.7.2.[place] [id number] Ar rian[address] 2022-10-25 2022-10-25 Outpatient [facility] [id number] Univers 10:40:00 11:36:09 SAUD aguirre o f [facility] 2022-10-25 2022-10-25 Office Suman [facility] 1.2.840.114 [id number] Univers 10:40:00 11:36:09 Visit Saud SANCHEZ 350.1.13.10 ity of [facility] 4.2.7.2.[place] [id number] Ar dical NAL 059 [facility] 2022-10-25 2022-10-25 Orders Doctor RAMIREZ 1.2.840.114 [id number] Univers 00:00:00 00:00:00 Only Unassigned, LYNETTE 350.1.13.10 [facility] 4.2.7.2.686 [place] [id number] [address] 2022-10-22 2022-10-22 Nurse 1, [facility] Infusion Chair [facility] 1.2. 840.114 [id number] [facility] 09:00:00 12:30:00 Visit Jennifer Garcia 350.1.13.10 ity of [place] 4.2.7.2.[place] [id number] [place] [address] [place] 2022-10-22 2022-10-22 Outpatient R JOSE [facility] [id number] Univers 09:00:00 09:00:00 MANAF ity of [facility] 2022-10-22 2022-10-22 Telephone [facility] 1.2.840.114 [id number] Univers 00:00:00 00:00:00 Etienne SANCHEZ 350.1.13.10 i ty of [place] 4.2.7.2.[place] [id number] [facility] 204 [facility] 2022-10-19 2022-10-19 Telephonic MARIANO ENG [facility] 1.2.840.114 [id number] [place] 07:45:00 07:45:00 Encounter DEVON AZALIA 350.1.13.58 Health [place] 1 9.2.7.2.686 [id number] 2 2022-10-14 2022-10-14 Orders Doctor RAMIREZ 1.2.840.114 [id number] Univers 00:00:00 00:00:00 Only Unassigned, LYNETTE 350.1.13.10 ity of [place] [facility] 4.2.7.2.686 Osiel as [id number] [facility] [address] 2022-09-27 2022-09-27 Transition ADRIENNE Caceres 1.2.840.114 [id number] Univers 00:00:00 00:00:00 of Care Jalyn MENDIOLA 350.1.13.10 it y of [place].2.7.2.686 [place] [id number] [facility] [address] 2022-09-21 2022-09-25 Inpatient X VIKRAM [facility] LUCINA [id number] Univers 10:45:00 18:10:00 PARIS aguirre of [facility] 2022-09-21 2022-09-25 Hospital Landy Romo [facility] 1.2.840.11 [id number] Univers 10:45:00 18:10:00 Encounter Ana Rich 350.1.13.10 ity of [place] 4.2.7.2.686 [facility] [id number] [facility] [address] 2022-09-22 2022-09-22 Outpatient [facility] [id number] Univers 11:20:00 11:20:00 SAUD aguirre o [facility] 2022-09-15 2022-09-15 Outpatient [facility] [id number] Univers 11:00:00 11:34:45 AMANDA wiggins [facility] 2022-09-15 2022-09-15 [facility] 1.2.840.114 [id number] Univers 11:00:00 11:34:45 Visit Amanda SANCHEZ 350.1.13.10 ity of [place].7.2.[place] [id number] [facility] [address] [facility] 2022-08-26 2022-08-26 Telephone [facility] 1.2.840.114 [id number] Univers 00:00:00 00:00:00 Etienne SANCHEZ 350.1.13.10 i ty of [place] 4[place]2.7.2.[place] [id number] Ar dical [address] 2022-08-25 2022-08-25 Emergency [facility] ERT [id number] Univers 14:16:00 18:25:[address] [facility] 2022-08-25 2022-08-25 Emergency [facility] 1.2.614.013 [id number] Univers 14:16:00 18:25:00 Matias BRADLEY 350.1.13.10 i ty of [place] 4.2.7.2.[place]US [id number] [address] 2022-08-25 2022-08-25 [facility] [place] 1.2.840.114 [id number] Univers 00:00:00 00:00:00 Etienne DANIEL 350.1.13.10 i ty of [place] 4.2.7.2.[place] 585.9404489 Ar dic[address] 2022-08-23 2022-08-23 Telephone [facility] [place] 1.2.840.114 [id number] Univers 00:00:00 00:00:00 Etienne BRADLEY 350.1.13.10 i ty of [place] 4.2.7.2.[place] [id number] [address] 2022-08-02 2022-08-02 Office Suarez, [facility] 1.2.840.114 [id number] Univers 13:00:00 14:01:52 Visit Amanda SANCHEZ 350.1.13.10 ity of [facility] 4.2.7.2.[place] [id number] Ar dical [address] 2022-08-02 2022-08-02 Outpatient [facility] [id number] Univers 13:00:00 14:01:52 AMANDA aguirre o f [facility] 2022-07-27 2022-07-27 Outpatient R [facility] SUU [id number] Univers 09:57:00 15:24:00 ETIENEN aguirre [facility] 2022-07-272022-07-27 [facility] 1.2.354.158 [id number] Univers 09:57:00 15:24:00 Encounter Etienne SANCHEZ 350.1.13.10 ity of [place].7.2.[place]ICAL [id number] [facility] [address] 2022-07-27 2022-07-27 Surgery [facility] 1.2.840.114 [id number] Univers 11:40:00 13:43:00 Etienne DANIEL 350.1.13.10 i ty of [facility] 4.2.7.2.[place]ICAL [id number] [facility] [address] 2022-07-27 2022-07-27 Orders Doctor JAMES 1.2.840.114 [id number] Univers 00:00:00 00:00:00 Only Unassigned, LYNETTE 350.1.13.10 ity of [place] [facility] 4.2.7.2.686 Osiel as [id number] [facility] [address] 2022-07-21 2022-07-21 Transition Anu SEBASTIENAnkur 1.2.840.114 [id number] Univers 00:00:00 00:00:00 of Care Bina MENDIOLA 350.1.13.10 it y of [place] 4[place]2.7.2.686 [place] [id number] [facility] [address] 2022-07-14 2022-07-20 [facility] [id number] Univers 12:00:00 17:18:00 ANA ity [facility] 2022-07-14 2022-07-20 Inpatient X [facility] LUCINA [id number] Univers 12:00:00 17:18:00 ANA ity [facility] 2022-07-14 2022-07-20 [facility] Matias rBown [facility] 1.2.840.1 14 [id number] Univers 12:00:00 17:18:00 Encounter [place] 350.1.13.10 ity of [place] 4.2.7.2.686 [facility] [id number] [facility] [address] 2022-07-19 2022-07-19 Telephone [facility] 1.2.840.114 [id number] Univers 00:00:00 00:00:00 Etienne [place] 350.1.13.10 i ty of [facility] 4.2.7.2.[place] [id number] [address] 2022-07-16 2022-07-16 Telephone [facility] 1.2.840.114 [id number] Univers 00:00:00 00:00:00 Etienne [place] 350.1.13.10 i ty [place] [facility] [place] [id number] [address] 2022-07-15 2022-07-15 [facility] [id number] Univers 00:00:00 00:00:00 MANAF ity of [facility] 2022-07-14 2022-07-14 Orders Doctor RAMIREZ 1.2.840.114 [id number] Univers 00:00:00 00:00:00 Only Unassigned, LYNETTE 350.1.13.10 ity of [facility] 4.2.7.2.686 Osiel as [id number] [address] 2022-07-09 2022-07-09 [facility] 1.2.840.114 [id number] Univers 00:00:00 00:00:00 Management Amanda SANCHEZ 350.1.13.10 [facility] [facility] [place] [id number] [address] 2022-07-09 2022-07-09 Orders Doctor RAMIREZ 1.2.840.114 [id number] Univers 00:00:00 00:00:00 Only Unassigned, LYNETTE 350.1.13.10 ity of [facility] 4.2.7.2.686 [place] as [id number] [address] 2022-07-07 2022-07-07 Orders Doctor RAMIREZ 1.2.840.114 [id number] Univers 00:00:00 00:00:00 Only Unassigned, LYNETTE 350.1.13.10 ity of [facility] 4.2.7.2.686 [place] as [id number] [address] 2022-07-05 2022-07-05 Outpatient [facility] [id number] Univers 13:45:00 15:55:50 AMANDA albertolynsey o f [facility] 2022-07-05 2022-07-05 Office [facility] 1.2.840.114 [id number] Univers 13:45:00 15:55:50 Visit Amanda DANIEL 350.1.13.10 ity of [facility] [place] [id number] Ar dical NAL 204 [facility] 2022-07-05 2022-07-05 Orders Doctor JAMES 1.2.840.114 [id number] Univers 00:00:00 00:00:00 Only Unassigned, LYNETTE 350.1.13.10 ity of [facility] 4.2.7.2.686 [place] as [id number] [address] 2022-06-06 2022-06-06 Emergency X [facility] ERT [id number] Univers 19:57:00 23:13:00 KYMBERLY aguirre of [facility] 2022-06-06 2022-06-06 Emergency [facility] 1.2.718.240 [id number] Univers 19:57:00 23:13:00 Kymberly SANCHEZ 350.1.13.10 ity of [facility] [place] [id number] [facility] [address] 2022 2022 [employer], [facility] Lab [facility] 1.2.840.114 [id number] Univers 14:15:00 14:30:00 Visit Daniela Amanda SANCHEZ 350.1.13. 10 ity of [facility] [place] [id number] Ar dical NAL 353 [facility] 2022 2022 Outpatient [facility] [id number] Univers 13:00:00 14:14:48 AMANDA aguirre o f [facility] 2022 2022 Office Daniela [facility] 1.2.840.114 [id number] Univers 13:00:00 14:14:48 Visit Amanda SANCHEZ 350.1.13.10 ity of [facility] [place] [facility] [phone] Ar dical [facility] [address] 2022 2022 Orders Doctor JAMES 1.2.840.114 [id number] Univers 00:00:00 00:00:00 Only Unassigned, LYNETTE 350.1.13.10 ity of [place] [facility] 4.2.7.2.686 [place] [phone] [facility] 009 Branch 2022-05-15 2022-05-15 [facility] [id number] Univers 14:25:00 17:25:00 MATIAS albertoy of [facility] 2022-05-15 2022-05-15 [facility] 1.2.974.832 [id number] Univers 14:25:00 17:25:00 Matias SANCHEZ 350.1.13.10 i ty of [place] [phone] [facility] 084 Branch 2020-12-24 2020-12-24 Transition Adrienne Brennan 1.2.840.114 [id number] Univers 00:00:00 00:00:00 of Care Bina Mendiola 350.1.13.10 it y [place] [id number] [facility] 403 Branch 2020-12-18 2020-12-23 Hospital Toro Jackson [facility] 1.2.840.1 [id number] Univers 17:00:00 15:30:00 Encounter Thierry Austin 350.1.13.1 0 ity of [place] 4.2.7.2.686 [facility] [phone] [place] [address] Branch 2020-12-18 2020-12-18 Orders Doctor JAMES 1.2.840.114 [id number] Univers 00:00:00 00:00:00 Only Unassigned, LYNETTE 350.1.13.10 ity of [place] [facility] 4.2.7.2.686 [place] [phone] [address] 2020-08-22 2020-08-22 Orders Doctor JAMES 1.2.840.114 [id number] Univers 00:00:00 00:00:00 Only Unassigned, LYNETTE 350.1.13.10 ity of [place] [facility] 4.2.7.2.686 [place] [phone] [address] 2020-07-22 2020-07-22 Assembler Dc Field Ring Shane Edwards Lab Main [facility] 1.2.8 40.114 [id number] Univers 15:44:45 15:59:45 Visit Jennifer Garcia 350.1.13.10 [place]y of [place] [phone] [address] 2020-07-22 2020-07-22 Outpatient R JOSE [facility] [id number] Univers 15:45:00 15:45:00 MANAF ity [facility] 2020-07-22 2020-07-22 Orders Doctor RAMIREZ 1.2.840.114 [id number] Univers 00:00:00 00:00:00 Only Unassigned, LYNETTE 350.1.13.10 ity of [place] [facility] 4.2.7.2.686 [place] [phone] [address] 2020-07-10 2020-07-10 Transition Adrienne Brennan 1.2.840.114 [id number] Univers 00:00:00 00:00:00 of Care Bina Mendiola 350.1.13.10 it y of [place] [phone] [address] 2020-07-06 2020-07-09 Hospital Kasey Padgett [facility] 1.2.84 0.114 [id number] Univers 09:37:00 17:31:00 Encounter Ana Rich 350.1.13.10 [place] 4.2.7.2.686 [facility] [phone] [address] 2020-07-06 2020-07-06 Emergency X LORIN [facility] ERT [id number] Univers 09:37:00 09:37:00 KASEY aguirre [facility] Results Test Description Test Time Test Comments Results Result Comments Source Surgical pathology request 2023-04-15 13:44:34 Test Item Value Reference Range Interpretation Comme nts Case number (test code = 7917967) [id number] Surgical pathology report (test code = See link below for PDF Lab R eport 2255) Result status (test code = 2385932) This is Final Report for [id number] 0349-8 [facility]889[facility] 05:13:50 Test Item Value Reference Range Interpretation Comments LIPASE (test code = 0994384761) 243 U/L 0-220 H Lab Interpretation (test code = Abnormal 97077-2) [facility] WITH [id number] 05:02:27 Test Item Value Reference Range Interpretation Comments WBC (test code = 10.27 See_Comment [Automated 6690-2) message] The sy stem which generated this result transmitted reference range : 4.20 - 10.70 10*3/?L. The reference range was not used to interpret this result as normal/abnormal . RBC (test code = 3.28 See_Comment L [Automated 999-8) message] The sy stem which generated this result transmitted reference range : 4.26 - 5.52 10*6/?L. The reference range was not used to interpret this result as normal/abnormal . HGB (test code = 10.6 g/dL 12.2-16.4 L 718-7) HCT (test code = 31.1 % 38.4-49.3 L 4544-3) MCV (test code = 94.8 fL 81.7-95.6 787-2) MCH (test code = 32.3 pg 26.1-32.7 785-6) MCHC (test code = 34.1 g/dL 31.2-35.0 786-4) RDW-SD (test code = 44.0 fL 38.5-51.6 87256-7) RDW-CV (test code = 12.8 % 12.1-15.4 788-0) PLT (test code = 272 See_Comment [Automated 777-3) message] The sy stem which generated this result transmitted reference range : 150 - 328 10*3/ ?L. The reference r taye was not used to interpret this result as normal/abnormal . MPV (test code = 10.0 fL 9.8-13.0 16103-8) NRBC/100 WBC (test 0.0 See_Comment [Automat ed code = [id number]) message] The system which generated this result transmitted reference range : 0.0 - 10.0 /100 WBCs. The refer ence range was not u sed to interpret th is result as normal/abnormal . NRBC x10^3 (test code See_Comment [Auto mated = [id number]) message] The s ystem which generated this result transmitted reference range : 10*3/?L. The reference range was not used to interpret this result as normal/abnormal . GRAN MAT (NEUT) % 71.6 % (test code = 770-8) IMM GRAN % (test code 0.50 % = 7614884175) LYMPH % (test code = 14.0 % 736-9) MONO % (test code = 11.3 % 5905-5) EOS % (test code = 1.9 % 713-8) BASO % (test code = 0.7 % 706-2) GRAN MAT x10^3(ANC) 7.35 10*3/uL 1.99-6.95 H (test code = 2325103116) IMM GRAN x10^3 (test 0.05 10*3/uL 0.00-0.06 code = 8233012309) LYMPH x10^3 (test code 1.44 10*3/uL 1.09-3.23 = 731-0) MONO x10^3 (test code 1.16 10*3/uL 0.36-1.02 H = 742-7) EOS x10^3 (test code = 0.20 10*3/uL 0.06-0.53 711-2) BASO x10^3 (test code 0.07 10*3/uL 0.01-0.09 = 704-7) Lab Interpretation Abnormal (test code = 27966-6) [facility] [id number] 15:09:00 Test Item Value Reference Range Interpretation Comments POC glucose (test code = 146 mg/dL 65-99 H Ope rator Name: [id number]) Timur duque ID: [id number] able: RN Notified Lab Interpretation (test Abnormal code = 82100-4) [facility] [id number] 13:59:01 Test Item Value Reference Range Interpretation Comments POC sodium (test code = 129 mmol/L 135-148 L 2947-0) POC potassium (test 4.1 mmol/L 3.5-5.0 code = 6298-4) POC glucose (test code 156 mg/dL 65-99 H = 2339-0) POC creatinine (test 5.4 mg/dl 0.7-1.2 H Operato r Name: code = 39196-7) Fonseca Phillip Chaconflacozaid ID: [id number] POC hemoglobin (test 11.9 g/dL 14.0-18.0 L code = 718-7) POC hematocrit (test 35 % 41-51 L code = 4544-3) Lab Interpretation Abnormal (test code = 78446-0) [id number] 13:59:00 Test Item Value Reference Range Interpretation Comments Estimated GFR (test 10 mL/min/1.73 m2 Sepideh devine Units code = 5488) InterpretationG 1 >=90 Normal or highG 2 60-89 Mildly decrease dG3a 45-59 Mildly to moderately decr kuabpZ6e 30-44 Moderatel y to severely decrea sedG4 15-29 Severely decreasedG5 <15 Kidney failureThe eGFR was calculated usin g the Chronic Kidney Disease Epidemiology Collaboration ( CKD-EPI) equation. Interpretation is based on recommendati ons of the National Ki dney Foundation-Kidn ey Disease Outcome s Quality Initiat huey (NKF-KDOQI) pub lished in 2013. Lab Interpretation Abnormal (test code = 82691-0) [facility]evilleMzmywpmdKZNPNSSOM7108-33-40 14:37:00 Test Item Value Reference Range Interpretation Comments POC V Source (test code = POC V Source) [facility] SatelliteCknxihqHTFALRIPZ5556-28-31 14:37:00 Test Item Value Reference Range Interpretation Comments POC V Temp (test code = POC V Temp) 36.3 [facility]BhvuhgoFCEDNFPHC0170-34-32 14:37:00 Test Item Value Reference Range Interpretation Comments POC V Ion Ca (test code = POC V Ion Ca) 1.06 1.05-1.25 [place] [address]-05-31 14:37:00 Test Item Value Reference Range Interpretation Comments POC V K (test code = POC V K) 4.2 3.5-5.1 [facility] CenterOmwmqrgCXHTQMVOG9550-37-88 14:37:00 Test Item Value Reference Range Interpretation Comments POC V Na (test code = POC V Na) 132 135-145 [facility] CenterYdibwzuDMQDRAYYL7398-83-40 14:37:00 Test Item Value Reference Range Interpretation Comments POC V LA (test code = POC V LA) 0.7 0.5-2.2 [facility] CenterWlyhmgmFOYGAPSOP7111-88-04 14:37:00 Test Item Value Reference Range Interpretation Comments POC V pH (test code = POC V pH) 7.28 1 7.28-7.42 [place] [address]-05-31 14:37:00 Test Item Value Reference Range Interpretation Comments POC V PCO2 (test code = POC V PCO2) 36 38-52 [facility] CenterPbrrnldUOVAKLMPD5671-52-76 14:37:00 Test Item Value Reference Range Interpretation Comments POC V PO2 (test code = POC V PO2) 60 20-49 [facility] CenterYnulcnvERWOJOYGJ0043-21-97 14:37:00 Test Item Value Reference Range Interpretation Comments POC V HCO3 (test code = POC V HCO3) 17 22-26 [place] [address]-05-31 14:37:00 Test Item Value Reference Range Interpretation Comments POC V BE (test code = POC V BE) -9 -2-2 [facility] CenterBwdjexvRFJNSEYNI2349-26-07 14:37:00 Test Item Value Reference Range Interpretation Comments POC V O2 Sat (calc) (test code = POC V 88.1 40.0-70.0 O2 Sat (calc)) [place] [address]-05-31 14:37:00 Test Item Value Reference Range Interpretation Comments POC V Hgb Tot (test code = POC V Hgb 12.9 14.0-18.0 Tot) [address]05-31 14:37:00 Test Item Value Reference Range Interpretation Comments POC V Glu (test code = POC V Glu) 170 70-99 [place] [address]-05-31 14:37:00 Test Item Value Reference Range Interpretation Comments POC V Hct (calc) (test code = POC V Hct 39.0 42.0-54.0 (calc)) [address]05-31 14:37:00 Test Item Value Reference Range Interpretation Comments POC V Cl (test code = POC V Cl) 102 95-109 [place] [address]-05-31 14:37:00 Test Item Value Reference Range Interpretation Comments POC V Ca Ion at pH 7.4 (test code = POC 1.01 1.05-1.25 V Ca Ion at pH 7.4) [address]05-31 14:37:00 Test Item Value Reference Range Interpretation Comments POC V Source (test code = POC V Source) [place] [address]-05-31 14:37:00 Test Item Value Reference Range Interpretation Comments POC V Temp (test code = POC V Temp) 36.3 [address]05-31 14:37:00 Test Item Value Reference Range Interpretation Comments POC V Ion Ca (test code = POC V Ion Ca) 1.06 1.05-1.25 [place] [address]-05-31 14:37:00 Test Item Value Reference Range Interpretation Comments POC V K (test code = POC V K) 4.2 3.5-5.1 [address]05-31 14:37:00 Test Item Value Reference Range Interpretation Comments POC V Na (test code = POC V Na) 132 135-145 [place] [address]-05-31 14:37:00 Test Item Value Reference Range Interpretation Comments POC V LA (test code = POC V LA) 0.7 0.5-2.2 [place] [address]-05-31 14:37:00 Test Item Value Reference Range Interpretation Comments POC V pH (test code = POC V pH) 7.28 1 7.28-7.42 [place] [address]-05-31 14:37:00 Test Item Value Reference Range Interpretation Comments POC V Source (test code = POC V Source) [place] [facility] CenterOgdxwhbNCKCIPYZC3631-20-55 14:37:00 Test Item Value Reference Range Interpretation Comments POC V Temp (test code = POC V Temp) 36.3 [place] [address]-05-31 14:37:00 Test Item Value Reference Range Interpretation Comments POC V PCO2 (test code = POC V PCO2) 36 38-52 [place] [address]-05-31 14:37:00 Test Item Value Reference Range Interpretation Comments POC V Ion Ca (test code = POC V Ion Ca) 1.06 1.05-1.25 [place] [address]-05-31 14:37:00 Test Item Value Reference Range Interpretation Comments POC V K (test code = POC V K) 4.2 3.5-5.1 [place] [address]-05-31 14:37:00 Test Item Value Reference Range Interpretation Comments POC V Na (test code = POC V Na) 132 135-145 [place] [address]-05-31 14:37:00 Test Item Value Reference Range Interpretation Comments POC V LA (test code = POC V LA) 0.7 0.5-2.2 [place] [address]-05-31 14:37:00 Test Item Value Reference Range Interpretation Comments POC V pH (test code = POC V pH) 7.28 1 7.28-7.42 [place] [address]-05-31 14:37:00 Test Item Value Reference Range Interpretation Comments POC V PCO2 (test code = POC V PCO2) 36 38-52 [facility] CenterAdtwsvhHXADTLFPY6832-18-57 14:37:00 Test Item Value Reference Range Interpretation Comments POC V PO2 (test code = POC V PO2) 60 20-49 [place] [address]-05-31 14:37:00 Test Item Value Reference Range Interpretation Comments POC V HCO3 (test code = POC V HCO3) 17 22-26 [place] [address]-05-31 14:37:00 Test Item Value Reference Range Interpretation Comments POC V BE (test code = POC V BE) -9 -2-2 [place] [address]-05-31 14:37:00 Test Item Value Reference Range Interpretation Comments POC V O2 Sat (calc) (test code = POC V 88.1 40.0-70.0 O2 Sat (calc)) [facility] CenterDmgicngPYCXSGXBU1064-38-76 14:37:00 Test Item Value Reference Range Interpretation Comments POC V PO2 (test code = POC V PO2) 60 20-49 [place] [address]-05-31 14:37:00 Test Item Value Reference Range Interpretation Comments POC V Hgb Tot (test code = POC V Hgb 12.9 14.0-18.0 Tot) [facility] CenterTevohtbFJIAHQPXV0301-75-56 14:37:00 Test Item Value Reference Range Interpretation Comments POC V Glu (test code = POC V Glu) 170 70-99 [place] [address]-05-31 14:37:00 Test Item Value Reference Range Interpretation Comments POC V Hct (calc) (test code = POC V Hct 39.0 42.0-54.0 (calc)) [facility] CenterXtzvlzmUJZTXOUIA7896-50-86 14:37:00 Test Item Value Reference Range Interpretation Comments POC V Cl (test code = POC V Cl) 102 95-109 [facility] CenterEqsdbgwJJHAKNSIP1701-22-68 14:37:00 Test Item Value Reference Range Interpretation Comments POC V Ca Ion at pH 7.4 (test code = POC 1.01 1.05-1.25 V Ca Ion at pH 7.4) [facility] CenterBmospscCBOXHWIXI6679-81-68 14:37:00 Test Item Value Reference Range Interpretation Comments POC V HCO3 (test code = POC V HCO3) 17 22-26 [place] [address]-05-31 14:37:00 Test Item Value Reference Range Interpretation Comments POC V BE (test code = POC V BE) -9 -2-2 [place] [address]-05-31 14:37:00 Test Item Value Reference Range Interpretation Comments POC V O2 Sat (calc) (test code = POC V 88.1 40.0-70.0 O2 Sat (calc)) [place] [address]-05-31 14:37:00 Test Item Value Reference Range Interpretation Comments POC V Hgb Tot (test code = POC V Hgb 12.9 14.0-18.0 Tot) [place] [address]-05-31 14:37:00 Test Item Value Reference Range Interpretation Comments POC V Glu (test code = POC V Glu) 170 70-99 [place] [address]-05-31 14:37:00 Test Item Value Reference Range Interpretation Comments POC V Hct (calc) (test code = POC V Hct 39.0 42.0-54.0 (calc)) [address]05-31 14:37:00 Test Item Value Reference Range Interpretation Comments POC V Cl (test code = POC V Cl) 102 95-109 [place] [address]-05-31 14:37:00 Test Item Value Reference Range Interpretation Comments POC V Ca Ion at pH 7.4 (test code = POC 1.01 1.05-1.25 V Ca Ion at pH 7.4) [address]05-31 14:37:00 Test Item Value Reference Range Interpretation Comments POC V Source (test code = POC V Source) [place] [address]-05-31 14:37:00 Test Item Value Reference Range Interpretation Comments POC V Temp (test code = POC V Temp) 36.3 [place] [address]-05-31 14:37:00 Test Item Value Reference Range Interpretation Comments POC V Ion Ca (test code = POC V Ion Ca) 1.06 1.05-1.25 [address]05-31 14:37:00 Test Item Value Reference Range Interpretation Comments POC V K (test code = POC V K) 4.2 3.5-5.1 [address]05-31 14:37:00 Test Item Value Reference Range Interpretation Comments POC V Na (test code = POC V Na) 132 135-145 [place] [address]-05-31 14:37:00 Test Item Value Reference Range Interpretation Comments POC V LA (test code = POC V LA) 0.7 0.5-2.2 [address]05-31 14:37:00 Test Item Value Reference Range Interpretation Comments POC V pH (test code = POC V pH) 7.28 1 7.28-7.[address]05-31 14:37:00 Test Item Value Reference Range Interpretation Comments POC V PCO2 (test code = POC V PCO2) 36 38-52 [address]05-31 14:37:00 Test Item Value Reference Range Interpretation Comments POC V PO2 (test code = POC V PO2) 60 20-49 [place] [address]-05-31 14:37:00 Test Item Value Reference Range Interpretation Comments POC V HCO3 (test code = POC V HCO3) 17 22-26 [place] [address]-05-31 14:37:00 Test Item Value Reference Range Interpretation Comments POC V BE (test code = POC V BE) -9 -2-2 [place] [address]-05-31 14:37:00 Test Item Value Reference Range Interpretation Comments POC V O2 Sat (calc) (test code = POC V 88.1 40.0-70.0 O2 Sat (calc)) [address]05-31 14:37:00 Test Item Value Reference Range Interpretation Comments POC V Hgb Tot (test code = POC V Hgb 12.9 14.0-18.0 Tot) [place] [address]-05-31 14:37:00 Test Item Value Reference Range Interpretation Comments POC V Glu (test code = POC V Glu) 170 70-99 [place] [address]-05-31 14:37:00 Test Item Value Reference Range Interpretation Comments POC V Hct (calc) (test code = POC V Hct 39.0 42.0-54.0 (calc)) [place] [address]-05-31 14:37:00 Test Item Value Reference Range Interpretation Comments POC V Cl (test code = POC V Cl) 102 95-109 [place] [address]-05-31 14:37:00 Test Item Value Reference Range Interpretation Comments POC V Ca Ion at pH 7.4 (test code = POC 1.01 1.05-1.25 V Ca Ion at pH 7.4) [place] [address]-05-31 14:37:00 Test Item Value Reference Range Interpretation Comments POC V Source (test code = POC V Source) [place] [address]-05-31 14:37:00 Test Item Value Reference Range Interpretation Comments POC V Temp (test code = POC V Temp) 36.3 [place] [address]-05-31 14:37:00 Test Item Value Reference Range Interpretation Comments POC V Ion Ca (test code = POC V Ion Ca) 1.06 1.05-1.25 [place] [address]-05-31 14:37:00 Test Item Value Reference Range Interpretation Comments POC V K (test code = POC V K) 4.2 3.5-5.1 [place] [address]-05-31 14:37:00 Test Item Value Reference Range Interpretation Comments POC V Na (test code = POC V Na) 132 135-145 [place] [address]-05-31 14:37:00 Test Item Value Reference Range Interpretation Comments POC V LA (test code = POC V LA) 0.7 0.5-2.2 [place] [address]-05-31 14:37:00 Test Item Value Reference Range Interpretation Comments POC V pH (test code = POC V pH) 7.28 1 7.28-7.42 [place] [address]-05-31 14:37:00 Test Item Value Reference Range Interpretation Comments POC V PCO2 (test code = POC V PCO2) 36 38-52 [place] [address]-05-31 14:37:00 Test Item Value Reference Range Interpretation Comments POC V PO2 (test code = POC V PO2) 60 20-49 [place] [address]-05-31 14:37:00 Test Item Value Reference Range Interpretation Comments POC V HCO3 (test code = POC V HCO3) 17 22-26 [facility] CenterLmutsliSVUJYNGPP7806-10-39 14:37:00 Test Item Value Reference Range Interpretation Comments POC V BE (test code = POC V BE) -9 -2-2 [place] [address]-05-31 14:37:00 Test Item Value Reference Range Interpretation Comments POC V O2 Sat (calc) (test code = POC V 88.1 40.0-70.0 O2 Sat (calc)) [facility] CenterIevrdprTSWMATJZS2816-99-73 14:37:00 Test Item Value Reference Range Interpretation Comments POC V Hgb Tot (test code = POC V Hgb 12.9 14.0-18.0 Tot) [facility] CenterHqfkhpaSVBWPVTMC1110-10-87 14:37:00 Test Item Value Reference Range Interpretation Comments POC V Glu (test code = POC V Glu) 170 70-99 [place] [address]-31 14:37:00 Test Item Value Reference Range Interpretation Comments POC V Hct (calc) (test code = POC V Hct 39.0 42.0-54.0 (calc)) [place] [address]-05-31 14:37:00 Test Item Value Reference Range Interpretation Comments POC V Cl (test code = POC V Cl) 102 95-109 [place] [address]-05-31 14:37:00 Test Item Value Reference Range Interpretation Comments POC V Ca Ion at pH 7.4 (test code = POC 1.01 1.05-1.25 V Ca Ion at pH 7.4) [address]05-31 14:37:00 Test Item Value Reference Range Interpretation Comments POC V Source (test code = POC V Source) [place] [address]-05-31 14:37:00 Test Item Value Reference Range Interpretation Comments POC V Temp (test code = POC V Temp) 36.3 [address]05-31 14:37:00 Test Item Value Reference Range Interpretation Comments POC V Ion Ca (test code = POC V Ion Ca) 1.06 1.05-1.25 [address]05-31 14:37:00 Test Item Value Reference Range Interpretation Comments POC V K (test code = POC V K) 4.2 3.5-5.1 [address]05-31 14:37:00 Test Item Value Reference Range Interpretation Comments POC V Na (test code = POC V Na) 132 135-145 [address]05-31 14:37:00 Test Item Value Reference Range Interpretation Comments POC V LA (test code = POC V LA) 0.7 0.5-2.2 [place] [address]-31 14:37:00 Test Item Value Reference Range Interpretation Comments POC V pH (test code = POC V pH) 7.28 1 7.28-7.42 [address]05-31 14:37:00 Test Item Value Reference Range Interpretation Comments POC V PCO2 (test code = POC V PCO2) 36 38-52 [address]05-31 14:37:00 Test Item Value Reference Range Interpretation Comments POC V PO2 (test code = POC V PO2) 60 20-49 [place] [address]-05-31 14:37:00 Test Item Value Reference Range Interpretation Comments POC V HCO3 (test code = POC V HCO3) 17 22-26 [place] [address]-05-31 14:37:00 Test Item Value Reference Range Interpretation Comments POC V BE (test code = POC V BE) -9 -2-2 [place] [address]-05-31 14:37:00 Test Item Value Reference Range Interpretation Comments POC V O2 Sat (calc) (test code = POC V 88.1 40.0-70.0 O2 Sat (calc)) [place] [address]-05-31 14:37:00 Test Item Value Reference Range Interpretation Comments POC V Hgb Tot (test code = POC V Hgb 12.9 14.0-18.0 Tot) [place] [address]-05-31 14:37:00 Test Item Value Reference Range Interpretation Comments POC V Glu (test code = POC V Glu) 170 70-99 [place] [address]-05-31 14:37:00 Test Item Value Reference Range Interpretation Comments POC V Hct (calc) (test code = POC V Hct 39.0 42.0-54.0 (calc)) [place] [address]-05-31 14:37:00 Test Item Value Reference Range Interpretation Comments POC V Cl (test code = POC V Cl) 102 95-109 [place] [address]-05-31 14:37:00 Test Item Value Reference Range Interpretation Comments POC V Ca Ion at pH 7.4 (test code = POC 1.01 1.05-1.25 V Ca Ion at pH 7.4) [place] [address]-31 14:37:00 Test Item Value Reference Range Interpretation Comments POC V Source (test code = POC V Source) [place] [address]-31 14:37:00 Test Item Value Reference Range Interpretation Comments POC V Temp (test code = POC V Temp) 36.3 [place] [address]-05-31 14:37:00 Test Item Value Reference Range Interpretation Comments POC V Ion Ca (test code = POC V Ion Ca) 1.06 1.05-1.25 [place] [address]-05-31 14:37:00 Test Item Value Reference Range Interpretation Comments POC V K (test code = POC V K) 4.2 3.5-5.1 [place] [address]-05-31 14:37:00 Test Item Value Reference Range Interpretation Comments POC V Na (test code = POC V Na) 132 135-145 [place] [address]-31 14:37:00 Test Item Value Reference Range Interpretation Comments POC V LA (test code = POC V LA) 0.7 0.5-2.2 [place] [address]-31 14:37:00 Test Item Value Reference Range Interpretation Comments POC V pH (test code = POC V pH) 7.28 1 7.28-7.42 [place] [address]-31 14:37:00 Test Item Value Reference Range Interpretation Comments POC V PCO2 (test code = POC V PCO2) 36 38-52 [address]05-31 14:37:00 Test Item Value Reference Range Interpretation Comments POC V PO2 (test code = POC V PO2) 60 20-49 [address]05-31 14:37:00 Test Item Value Reference Range Interpretation Comments POC V HCO3 (test code = POC V HCO3) 17 22-26 [place] [address]-05-31 14:37:00 Test Item Value Reference Range Interpretation Comments POC V BE (test code = POC V BE) -9 -2-2 [place] [address]-05-31 14:37:00 Test Item Value Reference Range Interpretation Comments POC V O2 Sat (calc) (test code = POC V 88.1 40.0-70.0 O2 Sat (calc)) [address]05-31 14:37:00 Test Item Value Reference Range Interpretation Comments POC V Hgb Tot (test code = POC V Hgb 12.9 14.0-18.0 Tot) [place] [address]-31 14:37:00 Test Item Value Reference Range Interpretation Comments POC V Glu (test code = POC V Glu) 170 70-99 [place] [address]-31 14:37:00 Test Item Value Reference Range Interpretation Comments POC V Hct (calc) (test code = POC V Hct 39.0 42.0-54.0 (calc)) [place] [address]-31 14:37:00 Test Item Value Reference Range Interpretation Comments POC V Cl (test code = POC V Cl) 102 95-109 [place] [address]-31 14:37:00 Test Item Value Reference Range Interpretation Comments POC V Ca Ion at pH 7.4 (test code = POC 1.01 1.05-1.25 V Ca Ion at pH 7.4) [facility] [id number] 14:25:00 Test Item Value Reference Range Interpretation Comments ABO/Rh (test code = ABO/Rh) O POS [facility] [id number] 14:25:00 Test Item Value Reference Range Interpretation Comments Antibody Scrn (test Negative (02/02/23 9:25 code = Antibody Scrn) AM) [facility]SraalnrHYVHSHXFJD4923-62-25 14:25:00 Test Item Value Reference Range Interpretation Comments WBC (test code = WBC) 7.7 3.7-10.4 [facility] CenterRifqtncVNQHFALFXM8017-74-59 14:25:00 Test Item Value Reference Range Interpretation Comments RBC (test code = RBC) 4.15 4.70-6.10 [facility] CenterLiodddhJSPJUTJVHK6500-08-66 14:25:00 Test Item Value Reference Range Interpretation Comments Hgb (test code = Hgb) 12.6 14.0-18.0 [facility] CenterSnbjobiNWNKPLYMFD2234-64-88 14:25:00 Test Item Value Reference Range Interpretation Comments Hct (test code = Hct) 38.2 42.0-54.0 [facility] CenterEwfkoorIFVCJYEWEK8720-99-55 14:25:00 Test Item Value Reference Range Interpretation Comments MCV (test code = MCV) 92.0 80.0-94.0 [facility] CenterSgqezmcJEPPXLUGFV1973-63-50 14:25:00 Test Item Value Reference Range Interpretation Comments MCH (test code = MCH) 30.3 pg 27.0-31.0 [facility] CenterBprozlqNTUKZBEWBM6849-38-25 14:25:00 Test Item Value Reference Range Interpretation Comments MCHC (test code = MCHC) 33.0 32.0-36.0 [facility] CenterUcjdawqZZNVCJIZMP4876-38-80 14:25:00 Test Item Value Reference Range Interpretation Comments RDW (test code = RDW) 15.2 11.5-14.5 [facility] CenterArysoliDTEEEEJBPT7749-06-83 14:25:00 Test Item Value Reference Range Interpretation Comments Platelet (test code = Platelet) 252 133-450 [facility] CenterJbwnxwuFXSEPURGUB1842-83-70 14:25:00 Test Item Value Reference Range Interpretation Comments MPV (test code = MPV) 8.7 7.4-10.4 [place] [address]-31 14:25:00 Test Item Value Reference Range Interpretation Comments Segs (test code = Segs) 65.8 45.0-75.0 [place] [address]-05-31 14:25:00 Test Item Value Reference Range Interpretation Comments Lymphocytes (test code = Lymphocytes) 20.5 20.0-40.0 [place] [address]-05-31 14:25:00 Test Item Value Reference Range Interpretation Comments Monocytes (test code = Monocytes) 9.4 2.0-12.0 [place] [address]-05-31 14:25:00 Test Item Value Reference Range Interpretation Comments Eosinophils (test code = 3.3 See_Comment [A utomated message] The Eosinophils) system which ge nerated this result tra nsmitted reference range : <=4.0. The reference r taye was not used to int erpret this result as normal/abnormal . [place] [address]-31 14:25:00 Test Item Value Reference Range Interpretation Comments Basophils (test code = 1.0 See_Comment [Aut omated message] The Basophils) system which ge nerated this result tra nsmitted reference range : <=1.0. The reference r taye was not used to int erpret this result as normal/abnormal . [place] [address]-31 14:25:00 Test Item Value Reference Range Interpretation Comments Neutrophils # (test code = Neutrophils 5.1 1.5-8.1 #) [place] [address]-05-31 14:25:00 Test Item Value Reference Range Interpretation Comments Lymphocytes # (test code = Lymphocytes 1.6 1.0-5.5 #) [place] [address]-05-31 14:25:00 Test Item Value Reference Range Interpretation Comments Monocytes # (test code 0.7 See_Comment [Aut omated message] The = Monocytes #) system which generated this result tra nsmitted reference range : <=0.8. The reference r taye was not used to int erpret this result as normal/abnormal . [place] [address]-31 14:25:00 Test Item Value Reference Range Interpretation Comments Eosinophils # (test code 0.3 See_Comment [A utomated message] The = Eosinophils #) system whic h generated this result tra nsmitted reference range : <=0.5. The reference r taye was not used to int erpret this result as normal/abnormal . [facility]MlytnmhRYOGQHTZJM5021-27-15 14:25:00 Test Item Value Reference Range Interpretation Comments Basophils # (test code 0.1 See_Comment [Aut omated message] The = Basophils #) system which generated this result tra nsmitted reference range : <=0.2. The reference r taye was not used to int erpret this result as normal/abnormal . [facility] [employer] [id number] 14:25:00 Test Item Value Reference Range Interpretation Comments ABO/Rh (test code = ABO/Rh) O POS [facility] [employer] [id number] 14:25:00 Test Item Value Reference Range Interpretation Comments Antibody Scrn (test Negative (02/02/23 9:25 code = Antibody Scrn) AM) [facility] HospitalGmmnhxuDTUHSAQRNK6836-91-67 14:25:00 Test Item Value Reference Range Interpretation Comments WBC (test code = WBC) 7.7 3.7-10.4 [facility] HospitalOjgnjlcQJHEDFCWKG7600-89-12 14:25:00 Test Item Value Reference Range Interpretation Comments RBC (test code = RBC) 4.15 4.70-6.10 [facility] HospitalUtlerosXIGFWFHGDJ1836-75-43 14:25:00 Test Item Value Reference Range Interpretation Comments Hgb (test code = Hgb) 12.6 14.0-18.0 [facility] HospitalNnpzgmbNCGFSSZHOC7011-31-65 14:25:00 Test Item Value Reference Range Interpretation Comments Hct (test code = Hct) 38.2 42.0-54.0 [facility]MkldvqgLYZFHILHBG2530-56-88 14:25:00 Test Item Value Reference Range Interpretation Comments MCV (test code = MCV) 92.0 80.0-94.0 [facility] HospitalWuqxwblEXRYPNLKHN7467-27-82 14:25:00 Test Item Value Reference Range Interpretation Comments MCH (test code = MCH) 30.3 pg 27.0-31.0 [facility] DallasSrlqopaJHLNQXNWRW9541-37-49 14:25:00 Test Item Value Reference Range Interpretation Comments MCHC (test code = MCHC) 33.0 32.0-36.0 [place] [address]53-05-31 14:25:00 Test Item Value Reference Range Interpretation Comments RDW (test code = RDW) 15.2 11.5-14.5 [place] [address]-05-31 14:25:00 Test Item Value Reference Range Interpretation Comments Platelet (test code = Platelet) 252 133-450 [place] 9[address]53-05-31 14:25:00 Test Item Value Reference Range Interpretation Comments MPV (test code = MPV) 8.7 7.4-10.4 [place] [address]-31 14:25:00 Test Item Value Reference Range Interpretation Comments Segs (test code = Segs) 65.8 45.0-75.0 [place] [address]-05-31 14:25:00 Test Item Value Reference Range Interpretation Comments Lymphocytes (test code = Lymphocytes) 20.5 20.0-40.0 [place] [address]-05-31 14:25:00 Test Item Value Reference Range Interpretation Comments Monocytes (test code = Monocytes) 9.4 2.0-12.0 [place] [address]-05-31 14:25:00 Test Item Value Reference Range Interpretation Comments Eosinophils (test code = 3.3 See_Comment [A utomated message] The Eosinophils) system which ge nerated this result tra nsmitted reference range : <=4.0. The reference r taey was not used to int erpret this result as normal/abnormal . [place] [address]-31 14:25:00 Test Item Value Reference Range Interpretation Comments Basophils (test code = 1.0 See_Comment [Aut omated message] The Basophils) system which ge nerated this result tra nsmitted reference range : <=1.0. The reference r taye was not used to int erpret this result as normal/abnormal . [place] [address]-31 14:25:00 Test Item Value Reference Range Interpretation Comments Neutrophils # (test code = Neutrophils 5.1 1.5-8.1 #) [place] [address]-31 14:25:00 Test Item Value Reference Range Interpretation Comments Lymphocytes # (test code = Lymphocytes 1.6 1.0-5.5 #) [facility] CenterJstsnwoVRRHHQHLMN1297-08-63 14:25:00 Test Item Value Reference Range Interpretation Comments Monocytes # (test code 0.7 See_Comment [Aut omated message] The = Monocytes #) system which generated this result tra nsmitted reference range : <=0.8. The reference r taye was not used to int erpret this result as normal/abnormal . [facility] CenterLnlykkgASHCIYWGKA8436-94-48 14:25:00 Test Item Value Reference Range Interpretation Comments Eosinophils # (test code 0.3 See_Comment [A utomated message] The = Eosinophils #) system whic h generated this result tra nsmitted reference range : <=0.5. The reference r taye was not used to int erpret this result as normal/abnormal . [facility] CenterXcmlbkzIPUTIWUCDN9272-62-17 14:25:00 Test Item Value Reference Range Interpretation Comments Basophils # (test code 0.1 See_Comment [Aut omated message] The = Basophils #) system which generated this result tra nsmitted reference range : <=0.2. The reference r taye was not used to int erpret this result as normal/abnormal . [facility] CBBQMUG9572-02-53 14:25:00 Test Item Value Reference Range Interpretation Comments ABO/Rh (test code = ABO/Rh) O POS [facility]2023-05-31 14:25:00 Test Item Value Reference Range Interpretation Comments Antibody Scrn (test Negative (02/02/23 9:25 code = Antibody Scrn) AM) [facility] CenterMtkhqatRJLNCUFBUV8732-71-09 14:25:00 Test Item Value Reference Range Interpretation Comments WBC (test code = WBC) 7.7 3.7-10.4 [facility] CenterKlindsdZQKVLDIHBV2853-73-57 14:25:00 Test Item Value Reference Range Interpretation Comments RBC (test code = RBC) 4.15 4.70-6.10 [facility] CenterBaihxouUIAGYSILMD0258-51-14 14:25:00 Test Item Value Reference Range Interpretation Comments Hgb (test code = Hgb) 12.6 14.0-18.0 [facility] CenterTyyjgafVZRUXTFRDQ1724-71-69 14:25:00 Test Item Value Reference Range Interpretation Comments Hct (test code = Hct) 38.2 42.0-54.0 [place] [address]-31 14:25:00 Test Item Value Reference Range Interpretation Comments MCV (test code = MCV) 92.0 80.0-94.0 [facility] GNAKKUI1010-60-71 14:25:00 Test Item Value Reference Range Interpretation Comments ABO/Rh (test code = ABO/Rh) O POS [facility] [id number] 14:25:00 Test Item Value Reference Range Interpretation Comments Antibody Scrn (test Negative (02/02/23 9:25 code = Antibody Scrn) AM) [facility] CenterZnmzebyATKLEKSLYZ9279-22-80 14:25:00 Test Item Value Reference Range Interpretation Comments WBC (test code = WBC) 7.7 3.7-10.4 [facility] CenterYlecnduHBALOYQZQO4566-43-87 14:25:00 Test Item Value Reference Range Interpretation Comments RBC (test code = RBC) 4.15 4.70-6.10 [facility] CenterDcqjpyeEHDJWNCCWA6891-83-51 14:25:00 Test Item Value Reference Range Interpretation Comments Hgb (test code = Hgb) 12.6 14.0-18.0 [facility] CenterIkuacxwFOHABTIPTV3752-96-96 14:25:00 Test Item Value Reference Range Interpretation Comments Hct (test code = Hct) 38.2 42.0-54.0 [facility] CenterMglfncwROJENLTJCV5378-64-72 14:25:00 Test Item Value Reference Range Interpretation Comments MCV (test code = MCV) 92.0 80.0-94.0 [facility] CenterOxkrmomXNLZVJPGYR9504-26-64 14:25:00 Test Item Value Reference Range Interpretation Comments MCH (test code = MCH) 30.3 pg 27.0-31.0 [facility] CenterFvyoiaiFKGQBAGKMC4086-53-93 14:25:00 Test Item Value Reference Range Interpretation Comments MCH (test code = MCH) 30.3 pg 27.0-31.0 [facility] CenterTuvjmryTVOTMGVFXI0955-63-65 14:25:00 Test Item Value Reference Range Interpretation Comments MCHC (test code = MCHC) 33.0 32.0-36.0 [facility] CenterHxiwganQTGMJTOIQL4025-24-35 14:25:00 Test Item Value Reference Range Interpretation Comments RDW (test code = RDW) 15.2 11.5-14.5 [facility] CenterUllysvgWKNWWZBDSI4115-57-14 14:25:00 Test Item Value Reference Range Interpretation Comments Platelet (test code = Platelet) 252 133-450 [place] [address]-31 14:25:00 Test Item Value Reference Range Interpretation Comments MPV (test code = MPV) 8.7 7.4-10.4 [place] [address] 14:25:00 Test Item Value Reference Range Interpretation Comments Segs (test code = Segs) 65.8 45.0-75.0 [place] [address]-31 14:25:00 Test Item Value Reference Range Interpretation Comments Lymphocytes (test code = Lymphocytes) 20.5 20.0-40.0 [place] [address]-31 14:25:00 Test Item Value Reference Range Interpretation Comments Monocytes (test code = Monocytes) 9.4 2.0-12.0 [place] [address]-05-31 14:25:00 Test Item Value Reference Range Interpretation Comments Eosinophils (test code = 3.3 See_Comment [A utomated message] The Eosinophils) system which ge nerated this result tra nsmitted reference range : <=4.0. The reference r taye was not used to int erpret this result as normal/abnormal . [place] [address]-31 14:25:00 Test Item Value Reference Range Interpretation Comments Basophils (test code = 1.0 See_Comment [Aut omated message] The Basophils) system which ge nerated this result tra nsmitted reference range : <=1.0. The reference r taye was not used to int erpret this result as normal/abnormal . [place] [address]53-[address]-31 14:25:00 Test Item Value Reference Range Interpretation Comments Neutrophils # (test code = Neutrophils 5.1 1.5-8.1 #) [place] [address]-31 14:25:00 Test Item Value Reference Range Interpretation Comments MCHC (test code = MCHC) 33.0 32.0-36.0 [place] [address]-31 14:25:00 Test Item Value Reference Range Interpretation Comments Lymphocytes # (test code = Lymphocytes 1.6 1.0-5.5 #) [place] [address]-31 14:25:00 Test Item Value Reference Range Interpretation Comments Monocytes # (test code 0.7 See_Comment [Aut omated message] The = Monocytes #) system which generated this result tra nsmitted reference range : <=0.8. The reference r taye was not used to int erpret this result as normal/abnormal . [place] [address]-31 14:25:00 Test Item Value Reference Range Interpretation Comments Eosinophils # (test code 0.3 See_Comment [A utomated message] The = Eosinophils #) system whic h generated this result tra nsmitted reference range : <=0.5. The reference r taye was not used to int erpret this result as normal/abnormal . [place] [address]-31 14:25:00 Test Item Value Reference Range Interpretation Comments Basophils # (test code 0.1 See_Comment [Aut omated message] The = Basophils #) system which generated this result tra nsmitted reference range : <=0.2. The reference r taye was not used to int erpret this result as normal/abnormal . [place] [address]53-05-31 14:25:00 Test Item Value Reference Range Interpretation Comments RDW (test code = RDW) 15.2 11.5-14.5 [place] [address]-05-31 14:25:00 Test Item Value Reference Range Interpretation Comments Platelet (test code = Platelet) 252 133-450 [place] [address]53-05-31 14:25:00 Test Item Value Reference Range Interpretation Comments MPV (test code = MPV) 8.7 7.4-10.4 [place] [address]-05-31 14:25:00 Test Item Value Reference Range Interpretation Comments Segs (test code = Segs) 65.8 45.0-75.0 [place] [address]-05-31 14:25:00 Test Item Value Reference Range Interpretation Comments Lymphocytes (test code = Lymphocytes) 20.5 20.0-40.0 [place] [address]-05-31 14:25:00 Test Item Value Reference Range Interpretation Comments Monocytes (test code = Monocytes) 9.4 2.0-12.0 [place] [address]-05-31 14:25:00 Test Item Value Reference Range Interpretation Comments Eosinophils (test code = 3.3 See_Comment [A utomated message] The Eosinophils) system which ge nerated this result tra nsmitted reference range : <=4.0. The reference r taye was not used to int erpret this result as normal/abnormal . [facility] HospitalRtynlkoYCGTEFGVYD5159-32-48 14:25:00 Test Item Value Reference Range Interpretation Comments Basophils (test code = 1.0 See_Comment [Aut omated message] The Basophils) system which ge nerated this result tra nsmitted reference range : <=1.0. The reference r taye was not used to int erpret this result as normal/abnormal . [facility] [employer] [id number] 14:25:00 Test Item Value Reference Range Interpretation Comments ABO/Rh (test code = ABO/Rh) O POS [facility] [employer] [id number] 14:25:00 Test Item Value Reference Range Interpretation Comments Antibody Scrn (test Negative (02/02/23 9:25 code = Antibody Scrn) AM) [facility] CenterYhvnlqqEKSDTSEOQK7012-26-72 14:25:00 Test Item Value Reference Range Interpretation Comments WBC (test code = WBC) 7.7 3.7-10.4 [facility] HospitalUlnnvocGDOKATHMLF4137-66-24 14:25:00 Test Item Value Reference Range Interpretation Comments RBC (test code = RBC) 4.15 4.70-6.10 [facility] HospitalWiyjehuCYURTJAYHQ1426-22-04 14:25:00 Test Item Value Reference Range Interpretation Comments Hgb (test code = Hgb) 12.6 14.0-18.0 [facility] DallasEjpziskWABLWFSUYN9801-39-50 14:25:00 Test Item Value Reference Range Interpretation Comments Hct (test code = Hct) 38.2 42.0-54.0 [facility] HospitalDihwfzdWOBRVNXZXM3912-94-40 14:25:00 Test Item Value Reference Range Interpretation Comments MCV (test code = MCV) 92.0 80.0-94.0 [facility] HospitalBtabsjaIHTRLJZPSL6014-91-59 14:25:00 Test Item Value Reference Range Interpretation Comments MCH (test code = MCH) 30.3 pg 27.0-31.0 [facility] HospitalTpgmismRQQVFKWWHU4956-73-92 14:25:00 Test Item Value Reference Range Interpretation Comments MCHC (test code = MCHC) 33.0 32.0-36.0 [place] [address]-05-31 14:25:00 Test Item Value Reference Range Interpretation Comments Neutrophils # (test code = Neutrophils 5.1 1.5-8.1 #) [place] [address]-31 14:25:00 Test Item Value Reference Range Interpretation Comments RDW (test code = RDW) 15.2 11.5-14.5 [place] [address]-05-31 14:25:00 Test Item Value Reference Range Interpretation Comments Platelet (test code = Platelet) 252 133-450 [place] [address]-31 14:25:00 Test Item Value Reference Range Interpretation Comments MPV (test code = MPV) 8.7 7.4-10.4 [place] [address]-05-31 14:25:00 Test Item Value Reference Range Interpretation Comments Segs (test code = Segs) 65.8 45.0-75.0 [address]05-31 14:25:00 Test Item Value Reference Range Interpretation Comments Lymphocytes (test code = Lymphocytes) 20.5 20.0-40.0 [place] [address]-05-31 14:25:00 Test Item Value Reference Range Interpretation Comments Monocytes (test code = Monocytes) 9.4 2.0-12.0 [place] [address]-05-31 14:25:00 Test Item Value Reference Range Interpretation Comments Eosinophils (test code = 3.3 See_Comment [A utomated message] The Eosinophils) system which ge nerated this result tra nsmitted reference range : <=4.0. The reference r taye was not used to int erpret this result as normal/abnormal . [place] [address]-31 14:25:00 Test Item Value Reference Range Interpretation Comments Basophils (test code = 1.0 See_Comment [Aut omated message] The Basophils) system which ge nerated this result tra nsmitted reference range : <=1.0. The reference r taye was not used to int erpret this result as normal/abnormal . [address]05-31 14:25:00 Test Item Value Reference Range Interpretation Comments Neutrophils # (test code = Neutrophils 5.1 1.5-8.1 #) [address]05-31 14:25:00 Test Item Value Reference Range Interpretation Comments Lymphocytes # (test code = Lymphocytes 1.6 1.0-5.5 #) [facility] CenterPeydsaqQNJTJMVTAV6693-80-95 14:25:00 Test Item Value Reference Range Interpretation Comments Monocytes # (test code 0.7 See_Comment [Aut omated message] The = Monocytes #) system which generated this result tra nsmitted reference range : <=0.8. The reference r taye was not used to int erpret this result as normal/abnormal . [facility] CenterHawilreMIURBZAYAP0081-54-07 14:25:00 Test Item Value Reference Range Interpretation Comments Eosinophils # (test code 0.3 See_Comment [A utomated message] The = Eosinophils #) system [facility] [employer] generated this result tra nsmitted reference range : <=0.5. The reference r taye was not used to int erpret this result as normal/abnormal . [facility] CenterExunpgnYSMIJSUNSE7198-37-00 14:25:00 Test Item Value Reference Range Interpretation Comments Basophils # (test code 0.1 See_Comment [Aut omated message] The = Basophils #) system which generated this result tra nsmitted reference range : <=0.2. The reference r taye was not used to int erpret this result as normal/abnormal . [facility] CenterQjddpvhRWORFNCQBI7626-88-14 14:25:00 Test Item Value Reference Range Interpretation Comments Lymphocytes # (test code = Lymphocytes 1.6 1.0-5.5 #) [facility] CenterTebslugBEETUGLMEP1647-81-11 14:25:00 Test Item Value Reference Range Interpretation Comments Monocytes # (test code 0.7 See_Comment [Aut omated message] The = Monocytes #) system which generated this result tra nsmitted reference range : <=0.8. The reference r taye was not used to int erpret this result as normal/abnormal . [facility] CenterJagafjzVEDOYMSRHP0375-97-71 14:25:00 Test Item Value Reference Range Interpretation Comments Eosinophils # (test code 0.3 See_Comment [A utomated message] The = Eosinophils #) system ic h generated this result tra nsmitted reference range : <=0.5. The reference r taye was not used to int erpret this result as normal/abnormal . [facility]2023-05-31 14:25:00 Test Item Value Reference Range Interpretation Comments ABO/Rh (test code = ABO/Rh) O POS [facility] CenterMqhfuagKZBFVIBCWX7602-87-24 14:25:00 Test Item Value Reference Range Interpretation Comments Basophils # (test code 0.1 See_Comment [Aut omated message] The = Basophils #) system which generated this result tra nsmitted reference range : <=0.2. The reference r taye was not used to int erpret this result as normal/abnormal . [facility] SLSJKLF8058-91-31 14:25:00 Test Item Value Reference Range Interpretation Comments Antibody Scrn (test Negative (02/02/23 9:25 code = Antibody Scrn) AM) [facility] CenterLkptopmVXZILOTOIT6987-38-57 14:25:00 Test Item Value Reference Range Interpretation Comments WBC (test code = WBC) 7.7 3.7-10.4 [facility] CenterFfmjzdyUIJPYABFBL5392-36-35 14:25:00 Test Item Value Reference Range Interpretation Comments RBC (test code = RBC) 4.15 4.70-6.10 [facility] CenterCwcpzfaINHSFYGMHV4360-12-51 14:25:00 Test Item Value Reference Range Interpretation Comments Hgb (test code = Hgb) 12.6 14.0-18.0 [facility] CenterKchxdywYUOYESFTAG6649-56-25 14:25:00 Test Item Value Reference Range Interpretation Comments Hct (test code = Hct) 38.2 42.0-54.0 [facility] CenterZzcezsiTWSNAYCPFA1638-43-93 14:25:00 Test Item Value Reference Range Interpretation Comments MCV (test code = MCV) 92.0 80.0-94.0 [facility] CenterNdroljvMXCDDXSNNT4952-66-72 14:25:00 Test Item Value Reference Range Interpretation Comments MCH (test code = MCH) 30.3 pg 27.0-31.0 [facility] CenterMdbwetgJDLACIADSP0113-78-40 14:25:00 Test Item Value Reference Range Interpretation Comments MCHC (test code = MCHC) 33.0 32.0-36.0 [facility] CenterXubfgddZSUEPFEKYI8545-21-99 14:25:00 Test Item Value Reference Range Interpretation Comments RDW (test code = RDW) 15.2 11.5-14.5 [facility] CenterOkhgkrsBGHADPHLFZ4884-26-61 14:25:00 Test Item Value Reference Range Interpretation Comments Platelet (test code = Platelet) 252 133-450 [facility] CenterUuzbloyJCNFFBYQCT7395-31-33 14:25:00 Test Item Value Reference Range Interpretation Comments MPV (test code = MPV) 8.7 7.4-10.4 [facility] CenterJwwnriaVSCCNNLVSX1859-56-53 14:25:00 Test Item Value Reference Range Interpretation Comments Segs (test code = Segs) 65.8 45.0-75.0 [facility] CenterJbpydibQRBZNRZZOD0615-42-02 14:25:00 Test Item Value Reference Range Interpretation Comments Lymphocytes (test code = Lymphocytes) 20.5 20.0-40.0 [place] 911253-05-31 14:25:00 Test Item Value Reference Range Interpretation Comments Monocytes (test code = Monocytes) 9.4 2.0-12.0 [facility]JcludvpVNMBLRVCLC6707-96-63 14:25:00 Test Item Value Reference Range Interpretation Comments Eosinophils (test code = 3.3 See_Comment [A utomated message] The Eosinophils) system which ge nerated this result tra nsmitted reference range : <=4.0. The reference r taye was not used to int erpret this result as normal/abnormal . [facility] CenterYhxafccWHMTWAGQLG3951-19-91 14:25:00 Test Item Value Reference Range Interpretation Comments Basophils (test code = 1.0 See_Comment [Aut omated message] The Basophils) system which ge nerated this result tra nsmitted reference range : <=1.0. The reference r taye was not used to int erpret this result as normal/abnormal . [facility] CenterNyrlptqFXVEASJKXZ7350-44-13 14:25:00 Test Item Value Reference Range Interpretation Comments Neutrophils # (test code = Neutrophils 5.1 1.5-8.1 #) [place] [address]-05-31 14:25:00 Test Item Value Reference Range Interpretation Comments Lymphocytes # (test code = Lymphocytes 1.6 1.0-5.5 #) [place] [address]-05-31 14:25:00 Test Item Value Reference Range Interpretation Comments Monocytes # (test code 0.7 See_Comment [Aut omated message] The = Monocytes #) system which generated this result tra nsmitted reference range : <=0.8. The reference r taye was not used to int erpret this result as normal/abnormal . [facility] CenterPzdqhjiBETAPQPUUR0347-70-62 14:25:00 Test Item Value Reference Range Interpretation Comments Eosinophils # (test code 0.3 See_Comment [A utomated message] The = Eosinophils #) system whic h generated this result tra nsmitted reference range : <=0.5. The reference r taye was not used to int erpret this result as normal/abnormal . [facility] CenterBfwgmnoRBNCBJGXKQ1301-40-25 14:25:00 Test Item Value Reference Range Interpretation Comments Basophils # (test code 0.1 See_Comment [Aut omated message] The = Basophils #) system which generated this result tra nsmitted reference range : <=0.2. The reference r taye was not used to int erpret this result as normal/abnormal . [facility] LFSSJRS1350-42-47 14:25:00 Test Item Value Reference Range Interpretation Comments ABO/Rh (test code = ABO/Rh) O POS [facility] WKJWMXE1682-13-23 14:25:00 Test Item Value Reference Range Interpretation Comments Antibody Scrn (test Negative (02/02/23 9:25 code = Antibody Scrn) AM) [facility] CenterIeopveaBHUHKHDWSG3843-96-75 14:25:00 Test Item Value Reference Range Interpretation Comments WBC (test code = WBC) 7.7 3.7-10.4 [facility] CenterAalguqiSWPJGBOQHT6871-84-17 14:25:00 Test Item Value Reference Range Interpretation Comments RBC (test code = RBC) 4.15 4.70-6.10 [facility] HospitalCkfkpreJUTEETZRAC3860-91-18 14:25:00 Test Item Value Reference Range Interpretation Comments Hgb (test code = Hgb) 12.6 14.0-18.0 [facility] CenterFfmwzacTKNOOBTGOD3865-06-15 14:25:00 Test Item Value Reference Range Interpretation Comments Hct (test code = Hct) 38.2 42.0-54.0 [facility] CenterPbqyyscBLOAUZAUMV7950-99-89 14:25:00 Test Item Value Reference Range Interpretation Comments MCV (test code = MCV) 92.0 80.0-94.0 [facility] CenterCourcbzQLKJAJKCRP1232-87-06 14:25:00 Test Item Value Reference Range Interpretation Comments MCH (test code = MCH) 30.3 pg 27.0-31.0 [place] 911253-05-31 14:25:00 Test Item Value Reference Range Interpretation Comments MCHC (test code = MCHC) 33.0 32.0-36.0 [place] [address]-05-31 14:25:00 Test Item Value Reference Range Interpretation Comments RDW (test code = RDW) 15.2 11.5-14.5 [place] [address]-05-31 14:25:00 Test Item Value Reference Range Interpretation Comments Platelet (test code = Platelet) 252 133-450 [place] [address]-05-31 14:25:00 Test Item Value Reference Range Interpretation Comments MPV (test code = MPV) 8.7 7.4-10.4 [place] [address]-05-31 14:25:00 Test Item Value Reference Range Interpretation Comments Segs (test code = Segs) 65.8 45.0-75.0 [place] [address]-05-31 14:25:00 Test Item Value Reference Range Interpretation Comments Lymphocytes (test code = Lymphocytes) 20.5 20.0-40.0 [place] [address]-05-31 14:25:00 Test Item Value Reference Range Interpretation Comments Monocytes (test code = Monocytes) 9.4 2.0-12.0 [place] [address]-05-31 14:25:00 Test Item Value Reference Range Interpretation Comments Eosinophils (test code = 3.3 See_Comment [A utomated message] The Eosinophils) system which ge nerated this result tra nsmitted reference range : <=4.0. The reference r taye was not used to int erpret this result as normal/abnormal . [place] [address]-05-31 14:25:00 Test Item Value Reference Range Interpretation Comments Basophils (test code = 1.0 See_Comment [Aut omated message] The Basophils) system which ge nerated this result tra nsmitted reference range : <=1.0. The reference r taye was not used to int erpret this result as normal/abnormal . [place] [address]-05-31 14:25:00 Test Item Value Reference Range Interpretation Comments Neutrophils # (test code = Neutrophils 5.1 1.5-8.1 #) [place] [address]-05-31 14:25:00 Test Item Value Reference Range Interpretation Comments Lymphocytes # (test code = Lymphocytes 1.6 1.0-5.5 #) [facility]ChnztybOUWXAYWZUJ2672-54-88 14:25:00 Test Item Value Reference Range Interpretation Comments Monocytes # (test code 0.7 See_Comment [Aut omated message] The = Monocytes #) system which generated this result tra nsmitted reference range : <=0.8. The reference r taye was not used to int erpret this result as normal/abnormal . [facility] CenterBrhdwvgUQERBDCGGC9146-09-95 14:25:00 Test Item Value Reference Range Interpretation Comments Eosinophils # (test code 0.3 See_Comment [A utomated message] The = Eosinophils #) system whic h generated this result tra nsmitted reference range : <=0.5. The reference r taye was not used to int erpret this result as normal/abnormal . [facility] CenterDayvcmkRJOSSPCGXO5068-15-53 14:25:00 Test Item Value Reference Range Interpretation Comments Basophils # (test code 0.1 See_Comment [Aut omated message] The = Basophils #) system which generated this result tra nsmitted reference range : <=0.2. The reference r taye was not used to int erpret this result as normal/abnormal . [facility] DallasAwiazueUVBLXGKTZ9313-99-32 17:48:00 Test Item Value Reference Range Interpretation Comments POC V Source (test code = POC V Source) [facility] HospitalRraxmrxHGTIAONAH2550-27-09 17:48:00 Test Item Value Reference Range Interpretation Comments POC V Temp (test code = POC V Temp) 37.1 [facility] HospitalGqeznuuFMUASSWHA8630-76-40 17:48:00 Test Item Value Reference Range Interpretation Comments POC V Ion Ca (test code = POC V Ion Ca) 1.08 1.05-1.25 [facility] DallasAgxqgnnHBTYMMUUM5555-73-36 17:48:00 Test Item Value Reference Range Interpretation Comments POC V K (test code = POC V K) 4.7 3.5-5.1 [facility] DallasDrfxjtqBOYIHITIT7684-63-81 17:48:00 Test Item Value Reference Range Interpretation Comments POC V Na (test code = POC V Na) 135 135-145 [facility] HospitalTggqgwxQMHSCMBPX0141-25-62 17:48:00 Test Item Value Reference Range Interpretation Comments POC V LA (test code = POC V LA) 0.6 0.5-2.2 [facility] CenterSoxfhkpHDIALXGTK2622-93-68 17:48:00 Test Item Value Reference Range Interpretation Comments POC V pH (test code = POC V pH) 7.33 1 7.28-7.42 [place] 635833-04-20 17:48:00 Test Item Value Reference Range Interpretation Comments POC V PCO2 (test code = POC V PCO2) 43 38-52 [facility] CenterKtdzzbpWNUIXDOKY9310-94-40 17:48:00 Test Item Value Reference Range Interpretation Comments POC V PO2 (test code = POC V PO2) 59 20-49 [facility] CenterRyktkagUCGOHZPKK2804-65-35 17:48:00 Test Item Value Reference Range Interpretation Comments POC V HCO3 (test code = POC V HCO3) 23 22-26 [facility] CenterPrxxsyxBYOKWEKDR2096-17-85 17:48:00 Test Item Value Reference Range Interpretation Comments POC V BE (test code = POC V BE) -3 -2-2 [facility] CenterQxjlqyxQUIOLQMXN6380-42-79 17:48:00 Test Item Value Reference Range Interpretation Comments POC V O2 Sat (calc) (test code = POC V 88.1 40.0-70.0 O2 Sat (calc)) [facility] CenterXlfbwzgWHLMCYHWX5228-85-87 17:48:00 Test Item Value Reference Range Interpretation Comments POC V Hgb Tot (test code = POC V Hgb 13.0 14.0-18.0 Tot) [facility] CenterCzkfytbAQZWPYZKL8979-34-78 17:48:00 Test Item Value Reference Range Interpretation Comments POC V Glu (test code = POC V Glu) 111 70-99 [facility] CenterFiwgvhgTYWEDSTEC1756-53-58 17:48:00 Test Item Value Reference Range Interpretation Comments POC V Hct (calc) (test code = POC V Hct 39.0 42.0-54.0 (calc)) [facility] CenterGzccmqkMMMHFWVML5242-16-77 17:48:00 Test Item Value Reference Range Interpretation Comments POC V Cl (test code = POC V Cl) 104 95-109 [facility] CenterEqxbfrwECUXUECYK6312-98-97 17:48:00 Test Item Value Reference Range Interpretation Comments POC V Ca Ion at pH 7.4 (test code = POC 1.05 1.05-1.25 V Ca Ion at pH 7.4) [place] 635833-04-20 17:48:00 Test Item Value Reference Range Interpretation Comments POC V Source (test code = POC V Source) [facility] CenterHkfusygQPPQTWSAN8434-18-85 17:48:00 Test Item Value Reference Range Interpretation Comments POC V Temp (test code = POC V Temp) 37.1 [facility] CenterLlcwsrjDNEAYFNPZ0510-85-95 17:48:00 Test Item Value Reference Range Interpretation Comments POC V Ion Ca (test code = POC V Ion Ca) 1.08 1.05-1.25 [facility] CenterUqdxcekCMFUIFGDL2825-74-47 17:48:00 Test Item Value Reference Range Interpretation Comments POC V K (test code = POC V K) 4.7 3.5-5.1 [facility] CenterCwdbqsmWMIJIPDQU0053-63-94 17:48:00 Test Item Value Reference Range Interpretation Comments POC V Na (test code = POC V Na) 135 135-145 [facility] CenterDkfbcxvYQOTPGKEL3722-85-39 17:48:00 Test Item Value Reference Range Interpretation Comments POC V LA (test code = POC V LA) 0.6 0.5-2.2 [facility] CenterPbdkfqmVRLRMAJEB2006-46-13 17:48:00 Test Item Value Reference Range Interpretation Comments POC V pH (test code = POC V pH) 7.33 1 7.28-7.42 [facility] CenterEghwipjBEADOKFSQ3681-15-17 17:48:00 Test Item Value Reference Range Interpretation Comments POC V PCO2 (test code = POC V PCO2) 43 38-52 [facility] CenterLayuzqyBXKYJEVZO3342-39-48 17:48:00 Test Item Value Reference Range Interpretation Comments POC V PO2 (test code = POC V PO2) 59 20-49 [facility] CenterFcjmkejNOSFKYWZO6727-14-44 17:48:00 Test Item Value Reference Range Interpretation Comments POC V HCO3 (test code = POC V HCO3) 23 22-26 [facility] CenterQyyovziBSRGEZAPB1433-51-43 17:48:00 Test Item Value Reference Range Interpretation Comments POC V BE (test code = POC V BE) -3 -2-2 [facility] CenterOvbiudfSKFZQQPHA2728-56-19 17:48:00 Test Item Value Reference Range Interpretation Comments POC V O2 Sat (calc) (test code = POC V 88.1 40.0-70.0 O2 Sat (calc)) [facility] CenterEltmuayYWDFIJYYF5860-14-58 17:48:00 Test Item Value Reference Range Interpretation Comments POC V Hgb Tot (test code = POC V Hgb 13.0 14.0-18.0 Tot) [facility] CenterQaulanxONTUHRGPL6271-35-46 17:48:00 Test Item Value Reference Range Interpretation Comments POC V Glu (test code = POC V Glu) 111 70-99 [facility] CenterYmdcerrGCXFSZEYL0488-80-34 17:48:00 Test Item Value Reference Range Interpretation Comments POC V Hct (calc) (test code = POC V Hct 39.0 42.0-54.0 (calc)) [facility] CenterIvbxszbPMHZUWGGO7175-03-08 17:48:00 Test Item Value Reference Range Interpretation Comments POC V Cl (test code = POC V Cl) 104 95-109 [facility] CenterQxvnegnDNDMWMQML0347-55-56 17:48:00 Test Item Value Reference Range Interpretation Comments POC V Ca Ion at pH 7.4 (test code = POC 1.05 1.05-1.25 V Ca Ion at pH 7.4) [facility] CenterLisiurlQNAAYKDLC1313-15-40 17:48:00 Test Item Value Reference Range Interpretation Comments POC V Source (test code = POC V Source) [facility] CenterBmcjnfwQWRLDJDYK0850-02-30 17:48:00 Test Item Value Reference Range Interpretation Comments POC V Temp (test code = POC V Temp) 37.1 [facility] CenterPqzxmjsSAMKOFJQI3546-85-58 17:48:00 Test Item Value Reference Range Interpretation Comments POC V Ion Ca (test code = POC V Ion Ca) 1.08 1.05-1.25 [facility] CenterMrffvllSOFJCKTCR8421-14-62 17:48:00 Test Item Value Reference Range Interpretation Comments POC V K (test code = POC V K) 4.7 3.5-5.1 [facility] CenterVwafmzdCUUWFKZJN9151-01-86 17:48:00 Test Item Value Reference Range Interpretation Comments POC V Na (test code = POC V Na) 135 135-145 [facility] CenterFhwpzpgQXMYUXXQH9486-93-28 17:48:00 Test Item Value Reference Range Interpretation Comments POC V LA (test code = POC V LA) 0.6 0.5-2.2 [facility] CenterEktjmgnPBFTJYBEI3450-91-20 17:48:00 Test Item Value Reference Range Interpretation Comments POC V pH (test code = POC V pH) 7.33 1 7.28-7.42 [facility] CenterDzltdryPGFNGFKNB6485-05-09 17:48:00 Test Item Value Reference Range Interpretation Comments POC V PCO2 (test code = POC V PCO2) 43 38-52 [facility] CenterOrcuqveXFWKEIKBC4255-65-95 17:48:00 Test Item Value Reference Range Interpretation Comments POC V PO2 (test code = POC V PO2) 59 20-49 [facility] CenterXqqqgftSUNAMLUWM5786-19-53 17:48:00 Test Item Value Reference Range Interpretation Comments POC V HCO3 (test code = POC V HCO3) 23 22-26 [facility] CenterAacxtbfRWTAQAWDX1480-50-72 17:48:00 Test Item Value Reference Range Interpretation Comments POC V BE (test code = POC V BE) -3 -2-2 [facility] CenterPbqvyhhIFEGRPPXB0839-22-78 17:48:00 Test Item Value Reference Range Interpretation Comments POC V O2 Sat (calc) (test code = POC V 88.1 40.0-70.0 O2 Sat (calc)) [facility] CenterQwvlvkhDWKHPSAPC7912-75-09 17:48:00 Test Item Value Reference Range Interpretation Comments POC V Hgb Tot (test code = POC V Hgb 13.0 14.0-18.0 Tot) [facility] CenterGqbxbeoTFAHFNXKJ7828-73-15 17:48:00 Test Item Value Reference Range Interpretation Comments POC V Glu (test code = POC V Glu) 111 70-99 [facility] CenterLsegnpfRHHJWXVAY0730-73-85 17:48:00 Test Item Value Reference Range Interpretation Comments POC V Hct (calc) (test code = POC V Hct 39.0 42.0-54.0 (calc)) [facility] CenterTowkmttRMNNNGLOI6774-77-10 17:48:00 Test Item Value Reference Range Interpretation Comments POC V Cl (test code = POC V Cl) 104 95-109 [facility] CenterYuynvpaQFLRREXJT6160-56-68 17:48:00 Test Item Value Reference Range Interpretation Comments POC V Ca Ion at pH 7.4 (test code = POC 1.05 1.05-1.25 V Ca Ion at pH 7.4) [facility] CenterPazsuouKZKHGMWUP7401-10-37 17:48:00 Test Item Value Reference Range Interpretation Comments POC V Source (test code = POC V Source) [facility] CenterLwlavciGAUPURZJO7003-71-69 17:48:00 Test Item Value Reference Range Interpretation Comments POC V Temp (test code = POC V Temp) 37.1 [facility] CenterVupogmjTMMWVCTUR2997-31-39 17:48:00 Test Item Value Reference Range Interpretation Comments POC V Ion Ca (test code = POC V Ion Ca) 1.08 1.05-1.25 [facility] CenterDskmcqdGDYZKFCMZ2723-60-83 17:48:00 Test Item Value Reference Range Interpretation Comments POC V K (test code = POC V K) 4.7 3.5-5.1 [facility] CenterAstjxexGSHXTRHFA8975-05-16 17:48:00 Test Item Value Reference Range Interpretation Comments POC V Na (test code = POC V Na) 135 135-145 [facility] CenterGksfepxVHSDSGLTH1885-38-51 17:48:00 Test Item Value Reference Range Interpretation Comments POC V LA (test code = POC V LA) 0.6 0.5-2.2 [facility] CenterQzmylsnDWIXYJUAY0615-46-38 17:48:00 Test Item Value Reference Range Interpretation Comments POC V pH (test code = POC V pH) 7.33 1 7.28-7.42 [facility] CenterKpypsevXQGRURDDF6901-10-69 17:48:00 Test Item Value Reference Range Interpretation Comments POC V PCO2 (test code = POC V PCO2) 43 38-52 [facility] CenterLscvjilKYAHCCBOZ6121-12-09 17:48:00 Test Item Value Reference Range Interpretation Comments POC V PO2 (test code = POC V PO2) 59 20-49 [facility] CenterUfflcqpTACVGUTTI9489-54-59 17:48:00 Test Item Value Reference Range Interpretation Comments POC V HCO3 (test code = POC V HCO3) 23 22-26 [facility] CenterIqwlsnfKWBLQVKLG1964-50-92 17:48:00 Test Item Value Reference Range Interpretation Comments POC V BE (test code = POC V BE) -3 -2-2 [facility] CenterMhmocboCRFUFMQZM3110-12-40 17:48:00 Test Item Value Reference Range Interpretation Comments POC V O2 Sat (calc) (test code = POC V 88.1 40.0-70.0 O2 Sat (calc)) [facility] CenterYnbcxttKCSJCYFSQ9390-79-38 17:48:00 Test Item Value Reference Range Interpretation Comments POC V Hgb Tot (test code = POC V Hgb 13.0 14.0-18.0 Tot) [facility] CenterQaebltaZRHKGGHXE4091-94-44 17:48:00 Test Item Value Reference Range Interpretation Comments POC V Glu (test code = POC V Glu) 111 70-99 [facility] CenterKkqgtfxGSVXUONQO9727-98-70 17:48:00 Test Item Value Reference Range Interpretation Comments POC V Hct (calc) (test code = POC V Hct 39.0 42.0-54.0 (calc)) [facility] CenterFimiufsULJGCVGLE5418-78-35 17:48:00 Test Item Value Reference Range Interpretation Comments POC V Cl (test code = POC V Cl) 104 95-109 [facility] CenterOtjlvxcVITVXSTJM8408-24-73 17:48:00 Test Item Value Reference Range Interpretation Comments POC V Ca Ion at pH 7.4 (test code = POC 1.05 1.05-1.25 V Ca Ion at pH 7.4) [facility] CenterAucexjoIPTDSKBKS9604-41-26 17:48:00 Test Item Value Reference Range Interpretation Comments POC V Source (test code = POC V Source) [facility]2023-04-20 17:48:00 Test Item Value Reference Range Interpretation Comments POC V Temp (test code = POC V Temp) 37.1 [facility] CenterFbdowivHFDKYIDMM7280-04-77 17:48:00 Test Item Value Reference Range Interpretation Comments POC V Source (test code = POC V Source) [facility]2023-04-20 17:48:00 Test Item Value Reference Range Interpretation Comments POC V Temp (test code = POC V Temp) 37.1 [facility] CenterIyllpevKZXNWJYBO4083-75-73 17:48:00 Test Item Value Reference Range Interpretation Comments POC V Ion Ca (test code = POC V Ion Ca) 1.08 1.05-1.25 [facility] CenterBkuemzzDXFBMBWXP1043-24-49 17:48:00 Test Item Value Reference Range Interpretation Comments POC V K (test code = POC V K) 4.7 3.5-5.1 [facility] CenterPghpgeiYWDODDUEZ1804-18-90 17:48:00 Test Item Value Reference Range Interpretation Comments POC V Na (test code = POC V Na) 135 135-145 [facility] CenterAwhzbpcAXNNFIEAA8299-98-93 17:48:00 Test Item Value Reference Range Interpretation Comments POC V LA (test code = POC V LA) 0.6 0.5-2.[address]04-20 17:48:00 Test Item Value Reference Range Interpretation Comments POC V pH (test code = POC V pH) 7.33 1 7.28-7.42 [place] [address]-04-20 17:48:00 Test Item Value Reference Range Interpretation Comments POC V PCO2 (test code = POC V PCO2) 43 38-52 [place] [address]-04-20 17:48:00 Test Item Value Reference Range Interpretation Comments POC V PO2 (test code = POC V PO2) 59 20-49 [place] [address]-04-20 17:48:00 Test Item Value Reference Range Interpretation Comments POC V Ion Ca (test code = POC V Ion Ca) 1.08 1.05-1.25 [place] [address]-04-20 17:48:00 Test Item Value Reference Range Interpretation Comments POC V HCO3 (test code = POC V HCO3) 23 22-26 [place] [address]-04-20 17:48:00 Test Item Value Reference Range Interpretation Comments POC V BE (test code = POC V BE) -3 -2-2 [place] [address]-04-20 17:48:00 Test Item Value Reference Range Interpretation Comments POC V O2 Sat (calc) (test code = POC V 88.1 40.0-70.0 O2 Sat (calc)) [facility] CenterBvafxtuUFARBVTCR3512-49-92 17:48:00 Test Item Value Reference Range Interpretation Comments POC V Hgb Tot (test code = POC V Hgb 13.0 14.0-18.0 Tot) [facility] CenterBhiltcnMYBNLPMPY9637-53-37 17:48:00 Test Item Value Reference Range Interpretation Comments POC V Glu (test code = POC V Glu) 111 70-99 [place] [address]-04-20 17:48:00 Test Item Value Reference Range Interpretation Comments POC V Hct (calc) (test code = POC V Hct 39.0 42.0-54.0 (calc)) [facility] CenterAbmggzhZNAUSUSGG6355-82-50 17:48:00 Test Item Value Reference Range Interpretation Comments POC V Cl (test code = POC V Cl) 104 95-109 [place] 635833-04-20 17:48:00 Test Item Value Reference Range Interpretation Comments POC V Ca Ion at pH 7.4 (test code = POC 1.05 1.05-1.25 V Ca Ion at pH 7.4) [facility] CenterEgeyxoiVAIYMHSHW8826-59-95 17:48:00 Test Item Value Reference Range Interpretation Comments POC V K (test code = POC V K) 4.7 3.5-5.1 [facility] CenterUpoemubJLOLKMJVN6922-72-88 17:48:00 Test Item Value Reference Range Interpretation Comments POC V Na (test code = POC V Na) 135 135-145 [facility] CenterPizsgqlNOMCWMPPS3450-22-55 17:48:00 Test Item Value Reference Range Interpretation Comments POC V LA (test code = POC V LA) 0.6 0.5-2.2 [facility] CenterSwhlnjhAKBVORPNF8298-54-71 17:48:00 Test Item Value Reference Range Interpretation Comments POC V pH (test code = POC V pH) 7.33 1 7.28-7.42 [facility] CenterTfkegodNTGPQZFHI1818-60-36 17:48:00 Test Item Value Reference Range Interpretation Comments POC V PCO2 (test code = POC V PCO2) 43 38-52 [facility] CenterNdooydtALMBBEZFZ0289-39-72 17:48:00 Test Item Value Reference Range Interpretation Comments POC V PO2 (test code = POC V PO2) 59 20-49 [facility] CenterDuvijcuZDTZOMNBD2370-60-76 17:48:00 Test Item Value Reference Range Interpretation Comments POC V HCO3 (test code = POC V HCO3) 23 22-26 [facility] CenterLajydllHSCGTVDEO9166-25-82 17:48:00 Test Item Value Reference Range Interpretation Comments POC V BE (test code = POC V BE) -3 -2-2 [facility] CenterWywzogxOOFOUANLA1783-78-19 17:48:00 Test Item Value Reference Range Interpretation Comments POC V O2 Sat (calc) (test code = POC V 88.1 40.0-70.0 O2 Sat (calc)) [facility] CenterXjtbqgqYJBDJYNZL4823-97-61 17:48:00 Test Item Value Reference Range Interpretation Comments POC V Hgb Tot (test code = POC V Hgb 13.0 14.0-18.0 Tot) [facility] CenterHhiycuwNUGFXMRDT0242-20-76 17:48:00 Test Item Value Reference Range Interpretation Comments POC V Glu (test code = POC V Glu) 111 70-99 [facility] CenterKizysyhVOZBGAZYJ5176-72-91 17:48:00 Test Item Value Reference Range Interpretation Comments POC V Hct (calc) (test code = POC V Hct 39.0 42.0-54.0 (calc)) [facility] CenterTaskrqgBIWZAPFOY8097-12-70 17:48:00 Test Item Value Reference Range Interpretation Comments POC V Cl (test code = POC V Cl) 104 95-109 [facility] CenterBixkeinCSSZCKYGA5999-30-25 17:48:00 Test Item Value Reference Range Interpretation Comments POC V Source (test code = POC V Source) [facility] CenterZcebyibDAEZYNBFQ3350-29-82 17:48:00 Test Item Value Reference Range Interpretation Comments POC V Temp (test code = POC V Temp) 37.1 [facility] CenterZgmxyowODGJYVMVJ9386-95-38 17:48:00 Test Item Value Reference Range Interpretation Comments POC V Ca Ion at pH 7.4 (test code = POC 1.05 1.05-1.25 V Ca Ion at pH 7.4) [facility] CenterIxpitwhYDMSMCXVN8076-47-09 17:48:00 Test Item Value Reference Range Interpretation Comments POC V Ion Ca (test code = POC V Ion Ca) 1.08 1.05-1.25 [facility] CenterGtyzamqCSFYEQGIY5879-91-21 17:48:00 Test Item Value Reference Range Interpretation Comments POC V K (test code = POC V K) 4.7 3.5-5.1 [facility] CenterRnzfshnJIZDSSPOE2064-42-17 17:48:00 Test Item Value Reference Range Interpretation Comments POC V Na (test code = POC V Na) 135 135-145 [facility]EufyopiCACRMZKUN8747-22-24 17:48:00 Test Item Value Reference Range Interpretation Comments POC V LA (test code = POC V LA) 0.6 0.5-2.2 [place] [address]-04-20 17:48:00 Test Item Value Reference Range Interpretation Comments POC V pH (test code = POC V pH) 7.33 1 7.28-7.42 [place] [address]-04-20 17:48:00 Test Item Value Reference Range Interpretation Comments POC V PCO2 (test code = POC V PCO2) 43 38-52 [place] 635833-04-20 17:48:00 Test Item Value Reference Range Interpretation Comments POC V PO2 (test code = POC V PO2) 59 20-49 [place] [address]-04-20 17:48:00 Test Item Value Reference Range Interpretation Comments POC V HCO3 (test code = POC V HCO3) 23 - [place] [address]-04-20 17:48:00 Test Item Value Reference Range Interpretation Comments POC V BE (test code = POC V BE) -3 -2-2 [place] 635833-04-20 17:48:00 Test Item Value Reference Range Interpretation Comments POC V O2 Sat (calc) (test code = POC V 88.1 40.0-70.0 O2 Sat (calc)) [facility]GqfxqzkMCEIQCUHW3425-04-37 17:48:00 Test Item Value Reference Range Interpretation Comments POC V Hgb Tot (test code = POC V Hgb 13.0 14.0-18.0 Tot) [facility] CenterMfxkuyjAUXIHNSLX2987-17-38 17:48:00 Test Item Value Reference Range Interpretation Comments POC V Glu (test code = POC V Glu) 111 70-99 [facility] CenterUyagexiUMACEJEFO5724-14-41 17:48:00 Test Item Value Reference Range Interpretation Comments POC V Hct (calc) (test code = POC V Hct 39.0 42.0-54.0 (calc)) [facility] CenterNgpokkpQGLIHFBLY7547-69-73 17:48:00 Test Item Value Reference Range Interpretation Comments POC V Cl (test code = POC V Cl) 104 95-109 [facility] CenterTsetpitSNAIVTNVI6624-95-18 17:48:00 Test Item Value Reference Range Interpretation Comments POC V Ca Ion at pH 7.4 (test code = POC 1.05 1.05-1.25 V Ca Ion at pH 7.4) [facility] CenterOmlgukwMGDXQPJJKF3704-42-29 17:33:00 Test Item Value Reference Range Interpretation Comments Neutrophils # (test code = Neutrophils 4.0 1.5-8.1 #) [place] 911253-04-20 17:33:00 Test Item Value Reference Range Interpretation Comments Lymphocytes # (test code = Lymphocytes 1.1 1.0-5.5 #) [facility] CenterVvmckiuJXXJQFJHAB0240-41-44 17:33:00 Test Item Value Reference Range Interpretation Comments Monocytes # (test code 0.6 See_Comment [Aut omated message] The = Monocytes #) system which generated this result tra nsmitted reference range : <=0.8. The reference r taye was not used to int erpret this result as normal/abnormal . [facility] CenterTpksridCKEPRJZJHJ4065-88-03 17:33:00 Test Item Value Reference Range Interpretation Comments Eosinophils # (test code 0.3 See_Comment [A utomated message] The = Eosinophils #) system whic h generated this result tra nsmitted reference range : <=0.5. The reference r taye was not used to int erpret this result as normal/abnormal . [facility] CenterLzkhfvpUTSJWJKJSP0901-43-94 17:33:00 Test Item Value Reference Range Interpretation Comments Basophils # (test code 0.1 See_Comment [Aut omated message] The = Basophils #) system which generated this result tra nsmitted reference range : <=0.2. The reference r taye was not used to int erpret this result as normal/abnormal . [facility] CenterQnbfwemKLJFIGXDEA5454-82-92 17:33:00 Test Item Value Reference Range Interpretation Comments WBC (test code = WBC) 6.1 3.7-10.4 [facility] CenterZjahiwfUOXXMODIHQ6703-07-32 17:33:00 Test Item Value Reference Range Interpretation Comments RBC (test code = RBC) 4.15 4.70-6.10 [facility] CenterImfybeePVDOVOSGRA3455-32-85 17:33:00 Test Item Value Reference Range Interpretation Comments Hgb (test code = Hgb) 12.7 14.0-18.0 [place] 911253-04-20 17:33:00 Test Item Value Reference Range Interpretation Comments Hct (test code = Hct) 39.0 42.0-54.0 [place] 911253-04-20 17:33:00 Test Item Value Reference Range Interpretation Comments MCV (test code = MCV) 93.8 80.0-94.0 [place] [address]-04-20 17:33:00 Test Item Value Reference Range Interpretation Comments MCH (test code = MCH) 30.5 pg 27.0-31.0 [facility] CenterNpaxijeHNGYFZSJPR0256-02-14 17:33:00 Test Item Value Reference Range Interpretation Comments MCHC (test code = MCHC) 32.5 32.0-36.0 [facility] CenterYxxveawSPWXLXJRLV8791-90-32 17:33:00 Test Item Value Reference Range Interpretation Comments RDW (test code = RDW) 16.0 11.5-14.5 [facility] DallasVoylxogYHHLFAUYWV7891-42-67 17:33:00 Test Item Value Reference Range Interpretation Comments Platelet (test code = Platelet) 233 133-450 [facility] DallasNdzdzjgEQRBEZFRKL1924-12-07 17:33:00 Test Item Value Reference Range Interpretation Comments MPV (test code = MPV) 8.9 7.4-10.4 [facility] DallasAkzvkupZPEXNOVMTY6492-50-79 17:33:00 Test Item Value Reference Range Interpretation Comments PT (test code = PT) 14.7 s 12.0-14.7 [facility] DallasFdkicknGPEXULFPOO2960-69-15 17:33:00 Test Item Value Reference Range Interpretation Comments INR (test code = INR) 1.15 1 0.85-1.17 [facility] DallasUjxwfyrQNWKFKPRLU0838-83-80 17:33:00 Test Item Value Reference Range Interpretation Comments PTT (test code = PTT) 35.2 s 22.9-35.8 [facility] [employer] KAGGKWQ1739-40-18 17:33:00 Test Item Value Reference Range Interpretation Comments ABO/Rh (test code = ABO/Rh) O POS [facility] [employer] QDQOSZQ8855-32-04 17:33:00 Test Item Value Reference Range Interpretation Comments Antibody Scrn (test Negative (12/23/22 code = Antibody Scrn) 12:33 PM) [facility] DallasQidyuwfZFSTSJLRC7251-95-62 17:33:00 Test Item Value Reference Range Interpretation Comments Glucose Lvl (test code = Glucose Lvl) 112 70-99 [facility] DallasPobpasbTARCUYGPE1971-05-50 17:33:00 Test Item Value Reference Range Interpretation Comments BUN (test code = BUN) 86 7-22 [facility] DallasEevaypoUBEBFGAMS4132-57-22 17:33:00 Test Item Value Reference Range Interpretation Comments Creatinine Lvl (test code = Creatinine 4.90 0.50-1.40 Lvl) [facility] DallasRcgmwzvDOAPHJMAX4355-44-15 17:33:00 Test Item Value Reference Range Interpretation Comments Sodium Lvl (test code = Sodium Lvl) 139 135-145 [facility] DallasZenfqicVRFLQOSUT9734-48-23 17:33:00 Test Item Value Reference Range Interpretation Comments Potassium Lvl (test code = Potassium 4.7 3.5-5.1 Lvl) [facility] CenterKcvmjbtROEPZKPYH0361-51-58 17:33:00 Test Item Value Reference Range Interpretation Comments Chloride Lvl (test code = Chloride Lvl) 110 95-109 [facility] CenterTehukrsAKZTDIBJD1734-38-70 17:33:00 Test Item Value Reference Range Interpretation Comments CO2 (test code = CO2) 21 24-32 [facility] CenterBdvmyebWAANOLXWX5111-75-14 17:33:00 Test Item Value Reference Range Interpretation Comments Calcium Lvl (test code = Calcium Lvl) 8.1 8.5-10.5 [facility] CenterWgelcolKYGZVLNLG6716-06-59 17:33:00 Test Item Value Reference Range Interpretation Comments AGAP (test code = AGAP) 12.7 10.0-20.0 [facility] CenterHgdjdxfFNCTHDHSI3320-86-93 17:33:00 Test Item Value Reference Range Interpretation Comments eGFR (test code = eGFR) 12 [facility] CenterSqdhdhbKXQCDFWODY2139-88-36 17:33:00 Test Item Value Reference Range Interpretation Comments Segs (test code = Segs) 65.1 45.0-75.0 [facility] CenterMkybppyKRKBSRHSHC3937-73-89 17:33:00 Test Item Value Reference Range Interpretation Comments Lymphocytes (test code = Lymphocytes) 18.3 20.0-40.0 [facility] CenterWjisbxgXJQTMWEYZG1458-57-92 17:33:00 Test Item Value Reference Range Interpretation Comments Monocytes (test code = Monocytes) 10.2 2.0-12.0 [facility] CenterRtkangwOLXNDHIINS4189-21-30 17:33:00 Test Item Value Reference Range Interpretation Comments Eosinophils (test code = 4.9 See_Comment [A utomated message] The Eosinophils) system which ge nerated this result tra nsmitted reference range : <=4.0. The reference r taye was not used to int erpret this result as normal/abnormal . [facility] CenterChwnycgQZEJHLTTMJ0840-34-14 17:33:00 Test Item Value Reference Range Interpretation Comments Basophils (test code = 1.5 See_Comment [Aut omated message] The Basophils) system which ge nerated this result tra nsmitted reference range : <=1.0. The reference r taye was not used to int erpret this result as normal/abnormal . [facility] CenterWllhcpmVQLWVOJDUP0503-27-33 17:33:00 Test Item Value Reference Range Interpretation Comments Neutrophils # (test code = Neutrophils 4.0 1.5-8.1 #) [place] [address]-04-20 17:33:00 Test Item Value Reference Range Interpretation Comments Lymphocytes # (test code = Lymphocytes 1.1 1.0-5.5 #) [place] [address]-04-20 17:33:00 Test Item Value Reference Range Interpretation Comments Monocytes # (test code 0.6 See_Comment [Aut omated message] The = Monocytes #) system which generated this result tra nsmitted reference range : <=0.8. The reference r taye was not used to int erpret this result as normal/abnormal . [address]04-20 17:33:00 Test Item Value Reference Range Interpretation Comments Eosinophils # (test code 0.3 See_Comment [A utomated message] The = Eosinophils #) system whic h generated this result tra nsmitted reference range : <=0.5. The reference r taye was not used to int erpret this result as normal/abnormal . [place] [address]-04-20 17:33:00 Test Item Value Reference Range Interpretation Comments Basophils # (test code 0.1 See_Comment [Aut omated message] The = Basophils #) system which generated this result tra nsmitted reference range : <=0.2. The reference r taye was not used to int erpret this result as normal/abnormal . [place] [address]-04-20 17:33:00 Test Item Value Reference Range Interpretation Comments WBC (test code = WBC) 6.1 3.7-10.4 [place] [address]-04-20 17:33:00 Test Item Value Reference Range Interpretation Comments RBC (test code = RBC) 4.15 4.70-6.10 [place] [address]-04-20 17:33:00 Test Item Value Reference Range Interpretation Comments Hgb (test code = Hgb) 12.7 14.0-18.0 [place] [address]-04-20 17:33:00 Test Item Value Reference Range Interpretation Comments Hct (test code = Hct) 39.0 42.0-54.0 [place] [address]-04-20 17:33:00 Test Item Value Reference Range Interpretation Comments MCV (test code = MCV) 93.8 80.0-94.0 [facility] DallasNbyiothDMTGKBJNBO5155-89-92 17:33:00 Test Item Value Reference Range Interpretation Comments MCH (test code = MCH) 30.5 pg 27.0-31.0 [facility] DallasIczwsaiBEFIDSBLJF3641-91-90 17:33:00 Test Item Value Reference Range Interpretation Comments MCHC (test code = MCHC) 32.5 32.0-36.0 [facility] DallasRflvgedWUVAGYIRNV1347-61-04 17:33:00 Test Item Value Reference Range Interpretation Comments RDW (test code = RDW) 16.0 11.5-14.5 [facility] DallasJmbapqxWYJZOGANZE5926-56-58 17:33:00 Test Item Value Reference Range Interpretation Comments Platelet (test code = Platelet) 233 133-450 [facility] DallasOklbxyoFZVFDKLEDS4978-46-25 17:33:00 Test Item Value Reference Range Interpretation Comments MPV (test code = MPV) 8.9 7.4-10.4 [facility] DallasDylyacsEDRGFLOFKB6872-19-12 17:33:00 Test Item Value Reference Range Interpretation Comments PT (test code = PT) 14.7 s 12.0-14.7 [facility] DallasBlvmfstQEFUHIYDOD9559-90-79 17:33:00 Test Item Value Reference Range Interpretation Comments INR (test code = INR) 1.15 1 0.85-1.17 [facility] DallasGydnjrhPGISNEDFNP5873-27-14 17:33:00 Test Item Value Reference Range Interpretation Comments PTT (test code = PTT) 35.2 s 22.9-35.8 [facility] [employer] ABIZBQH4852-83-67 17:33:00 Test Item Value Reference Range Interpretation Comments ABO/Rh (test code = ABO/Rh) O POS [facility] [employer] [id number] 17:33:00 Test Item Value Reference Range Interpretation Comments Antibody Scrn (test Negative (12/23/22 code = Antibody Scrn) 12:33 PM) [facility] DallasDrxrtqhFTPICZVER4671-45-90 17:33:00 Test Item Value Reference Range Interpretation Comments Glucose Lvl (test code = Glucose Lvl) 112 70-99 [facility] DallasCqixrzjYPDAUXSLG6902-03-92 17:33:00 Test Item Value Reference Range Interpretation Comments BUN (test code = BUN) 86 7-22 [facility] DallasBsqsinwWCWSPYRLU9137-29-01 17:33:00 Test Item Value Reference Range Interpretation Comments Creatinine Lvl (test code = Creatinine 4.90 0.50-1.40 Lvl) [facility] CenterSreitxbWLPGNRYWU2817-10-95 17:33:00 Test Item Value Reference Range Interpretation Comments Sodium Lvl (test code = Sodium Lvl) 139 135-145 [facility] CenterFpjohfhRYVIZXPRH0700-74-73 17:33:00 Test Item Value Reference Range Interpretation Comments Potassium Lvl (test code = Potassium 4.7 3.5-5.1 Lvl) [facility] CenterYbrhjrqQBYHOYYVE7655-78-96 17:33:00 Test Item Value Reference Range Interpretation Comments Chloride Lvl (test code = Chloride Lvl) 110 95-109 [facility] CenterPuglarnLTQQIUGKX5327-90-80 17:33:00 Test Item Value Reference Range Interpretation Comments CO2 (test code = CO2) 21 -32 [facility] CenterXdlvwrhXHXGLSTIR9763-44-28 17:33:00 Test Item Value Reference Range Interpretation Comments Calcium Lvl (test code = Calcium Lvl) 8.1 8.5-10.5 [facility] CenterJyasueqWCOCUNEHX7208-44-43 17:33:00 Test Item Value Reference Range Interpretation Comments AGAP (test code = AGAP) 12.7 10.0-20.0 [facility] CenterIjjwgkjALKZBSSMR3630-67-06 17:33:00 Test Item Value Reference Range Interpretation Comments eGFR (test code = eGFR) 12 [facility] CenterNpwtlaeDLQZYXFEOS1629-36-60 17:33:00 Test Item Value Reference Range Interpretation Comments Segs (test code = Segs) 65.1 45.0-75.0 [facility] CenterAfrhykuFCOJTVTUBZ0034-45-72 17:33:00 Test Item Value Reference Range Interpretation Comments Lymphocytes (test code = Lymphocytes) 18.3 20.0-40.0 [facility] CenterPwrwflsLUPCAZVEBJ8920-92-72 17:33:00 Test Item Value Reference Range Interpretation Comments Monocytes (test code = Monocytes) 10.2 2.0-12.0 [facility] CenterCwsxhedLJAKHYAQLW8759-43-20 17:33:00 Test Item Value Reference Range Interpretation Comments Eosinophils (test code = 4.9 See_Comment [A utomated message] The Eosinophils) system which ge nerated this result tra nsmitted reference range : <=4.0. The reference r taye was not used to int erpret this result as normal/abnormal . [facility] CenterKedzqbvZPMNHOIUGT4126-78-61 17:33:00 Test Item Value Reference Range Interpretation Comments Basophils (test code = 1.5 See_Comment [Aut omated message] The Basophils) system which ge nerated this result tra nsmitted reference range : <=1.0. The reference r taye was not used to int erpret this result as normal/abnormal . [facility] CenterYmdmrxqDQEPDPGKPZ1134-60-91 17:33:00 Test Item Value Reference Range Interpretation Comments Neutrophils # (test code = Neutrophils 4.0 1.5-8.1 #) [facility] CenterGjmuawlPYNQMQBCFW9279-24-79 17:33:00 Test Item Value Reference Range Interpretation Comments Lymphocytes # (test code = Lymphocytes 1.1 1.0-5.5 #) [facility] CenterIrpmfmpFCEBJHVYIY2311-26-20 17:33:00 Test Item Value Reference Range Interpretation Comments Monocytes # (test code 0.6 See_Comment [Aut omated message] The = Monocytes #) system which generated this result tra nsmitted reference range : <=0.8. The reference r taye was not used to int erpret this result as normal/abnormal . [facility] CenterGavlifuTZGVKUNXVX6361-46-79 17:33:00 Test Item Value Reference Range Interpretation Comments Eosinophils # (test code 0.3 See_Comment [A utomated message] The = Eosinophils #) system whic h generated this result tra nsmitted reference range : <=0.5. The reference r taye was not used to int erpret this result as normal/abnormal . [facility] CenterIxsalutNGIBGLGHFV4185-12-92 17:33:00 Test Item Value Reference Range Interpretation Comments Basophils # (test code 0.1 See_Comment [Aut omated message] The = Basophils #) system which generated this result tra nsmitted reference range : <=0.2. The reference r taye was not used to int erpret this result as normal/abnormal . [facility] CenterOeyxmymBJRCWKUDKG3643-39-18 17:33:00 Test Item Value Reference Range Interpretation Comments WBC (test code = WBC) 6.1 3.7-10.4 [facility] CenterNhuthdmTFDBADLSYA5090-19-62 17:33:00 Test Item Value Reference Range Interpretation Comments RBC (test code = RBC) 4.15 4.70-6.10 [place] 911253-04-20 17:33:00 Test Item Value Reference Range Interpretation Comments Hgb (test code = Hgb) 12.7 14.0-18.0 [facility] CenterApxcgrcPQQEWEHMPV8717-72-86 17:33:00 Test Item Value Reference Range Interpretation Comments Hct (test code = Hct) 39.0 42.0-54.0 [facility] CenterFoelfqiQONOZQXNZI9664-94-50 17:33:00 Test Item Value Reference Range Interpretation Comments MCV (test code = MCV) 93.8 80.0-94.0 [facility]QsrsaqoJMSSTKWIHN3444-18-73 17:33:00 Test Item Value Reference Range Interpretation Comments MCH (test code = MCH) 30.5 pg 27.0-31.0 [facility] DallasPcjqrvsEXZTCUBZAQ2181-42-50 17:33:00 Test Item Value Reference Range Interpretation Comments MCHC (test code = MCHC) 32.5 32.0-36.0 [facility]TwjdgfrACOKRJQKYF2878-46-17 17:33:00 Test Item Value Reference Range Interpretation Comments RDW (test code = RDW) 16.0 11.5-14.5 [facility] DallasRffbwchXFBCAXJNAV5483-05-15 17:33:00 Test Item Value Reference Range Interpretation Comments Platelet (test code = Platelet) 233 133-450 [facility] HospitalAzrpkjpKMQLBTILNN0978-69-00 17:33:00 Test Item Value Reference Range Interpretation Comments MPV (test code = MPV) 8.9 7.4-10.4 [facility] JacksonSqpxlxfQUHGOJKTYC6989-71-56 17:33:00 Test Item Value Reference Range Interpretation Comments PT (test code = PT) 14.7 s 12.0-14.7 [facility] DallasBatpnwgNBRRTLMOFQ1666-46-38 17:33:00 Test Item Value Reference Range Interpretation Comments INR (test code = INR) 1.15 1 0.85-1.17 [facility] DallasPrdrktjNITVOLYVCH7920-33-07 17:33:00 Test Item Value Reference Range Interpretation Comments PTT (test code = PTT) 35.2 s 22.9-35.8 [facility] [employer] [id number] 17:33:00 Test Item Value Reference Range Interpretation Comments ABO/Rh (test code = ABO/Rh) O POS [facility] [employer] [id number] 17:33:00 Test Item Value Reference Range Interpretation Comments Antibody Scrn (test Negative (12/23/22 code = Antibody Scrn) 12:33 PM) [facility] CenterGzgypirQEESUOAWJ7987-99-79 17:33:00 Test Item Value Reference Range Interpretation Comments Glucose Lvl (test code = Glucose Lvl) 112 70-99 [facility] CenterKotvsonMAKVNNKPZ8413-41-72 17:33:00 Test Item Value Reference Range Interpretation Comments BUN (test code = BUN) 86 7-22 [facility] CenterOqoynncIMCTUJDWL5126-37-03 17:33:00 Test Item Value Reference Range Interpretation Comments Creatinine Lvl (test code = Creatinine 4.90 0.50-1.40 Lvl) [facility] CenterNkpmjbsUWIRQICOG8972-25-46 17:33:00 Test Item Value Reference Range Interpretation Comments Sodium Lvl (test code = Sodium Lvl) 139 135-145 [facility] CenterUwfxyifHERVCHKIG0007-47-65 17:33:00 Test Item Value Reference Range Interpretation Comments Potassium Lvl (test code = Potassium 4.7 3.5-5.1 Lvl) [facility] CenterNgtmcehZFPXFPMYL2537-43-75 17:33:00 Test Item Value Reference Range Interpretation Comments Chloride Lvl (test code = Chloride Lvl) 110 95-109 [facility] CenterLinjwmtBFKCHZVGQ3777-66-05 17:33:00 Test Item Value Reference Range Interpretation Comments CO2 (test code = CO2) 21 24-32 [facility] CenterHxoivfjXIDYHWJJX8161-84-43 17:33:00 Test Item Value Reference Range Interpretation Comments Calcium Lvl (test code = Calcium Lvl) 8.1 8.5-10.5 [facility] CenterUlmtntgTFHHCZBCF1831-22-17 17:33:00 Test Item Value Reference Range Interpretation Comments AGAP (test code = AGAP) 12.7 10.0-20.0 [facility] CenterQjcdgmaHEMZDOJWK3511-07-16 17:33:00 Test Item Value Reference Range Interpretation Comments eGFR (test code = eGFR) 12 [facility] CenterXwyzhhsDNNNSICYPV1198-55-03 17:33:00 Test Item Value Reference Range Interpretation Comments Segs (test code = Segs) 65.1 45.0-75.0 [facility] CenterQxqctdvRGHJQPNBIV7476-30-12 17:33:00 Test Item Value Reference Range Interpretation Comments Lymphocytes (test code = Lymphocytes) 18.3 20.0-40.0 [place] [address]-04-20 17:33:00 Test Item Value Reference Range Interpretation Comments Monocytes (test code = Monocytes) 10.2 2.0-12.0 [place] [address]-04-20 17:33:00 Test Item Value Reference Range Interpretation Comments Eosinophils (test code = 4.9 See_Comment [A utomated message] The Eosinophils) system which ge nerated this result tra nsmitted reference range : <=4.0. The reference r taye was not used to int erpret this result as normal/abnormal . [address]04-20 17:33:00 Test Item Value Reference Range Interpretation Comments Basophils (test code = 1.5 See_Comment [Aut omated message] The Basophils) system which ge nerated this result tra nsmitted reference range : <=1.0. The reference r taye was not used to int erpret this result as normal/abnormal . [address]04-20 17:33:00 Test Item Value Reference Range Interpretation Comments Neutrophils # (test code = Neutrophils 4.0 1.5-8.1 #) [address]04-20 17:33:00 Test Item Value Reference Range Interpretation Comments Lymphocytes # (test code = Lymphocytes 1.1 1.0-5.5 #) [address]04-20 17:33:00 Test Item Value Reference Range Interpretation Comments Monocytes # (test code 0.6 See_Comment [Aut omated message] The = Monocytes #) system which generated this result tra nsmitted reference range : <=0.8. The reference r taye was not used to int erpret this result as normal/abnormal . [place] [address]-04-20 17:33:00 Test Item Value Reference Range Interpretation Comments Eosinophils # (test code 0.3 See_Comment [A utomated message] The = Eosinophils #) system whic h generated this result tra nsmitted reference range : <=0.5. The reference r taye was not used to int erpret this result as normal/abnormal . [address]04-20 17:33:00 Test Item Value Reference Range Interpretation Comments Basophils # (test code 0.1 See_Comment [Aut omated message] The = Basophils #) system which generated this result tra nsmitted reference range : <=0.2. The reference r taye was not used to int erpret this result as normal/abnormal . [facility] CenterPwkgcqnLTHMNFPFXC3722-40-76 17:33:00 Test Item Value Reference Range Interpretation Comments WBC (test code = WBC) 6.1 3.7-10.4 [facility] CenterLimorboPAQNGJEKNF8300-77-43 17:33:00 Test Item Value Reference Range Interpretation Comments RBC (test code = RBC) 4.15 4.70-6.10 [facility] CenterDymwxntNNHIRWMDXC6068-50-18 17:33:00 Test Item Value Reference Range Interpretation Comments Hgb (test code = Hgb) 12.7 14.0-18.0 [facility] CenterExrdpscGYABMTOVQS4287-67-98 17:33:00 Test Item Value Reference Range Interpretation Comments Hct (test code = Hct) 39.0 42.0-54.0 [facility] CenterZbceqoxGRXWOOEMDN9433-17-25 17:33:00 Test Item Value Reference Range Interpretation Comments MCV (test code = MCV) 93.8 80.0-94.0 [facility] CenterUnckngbRETUQJNYUQ7919-77-75 17:33:00 Test Item Value Reference Range Interpretation Comments MCH (test code = MCH) 30.5 pg 27.0-31.0 [facility] CenterVoowyfrDJTEKAXNAS1452-40-78 17:33:00 Test Item Value Reference Range Interpretation Comments MCHC (test code = MCHC) 32.5 32.0-36.0 [facility] CenterJalrderJBMSRBYREW3704-81-36 17:33:00 Test Item Value Reference Range Interpretation Comments RDW (test code = RDW) 16.0 11.5-14.5 [facility]XgsvntzMVQRHZWHUA1705-30-07 17:33:00 Test Item Value Reference Range Interpretation Comments Platelet (test code = Platelet) 233 133-450 [facility] CenterRaowyqzGUQBRBKLVI3636-56-77 17:33:00 Test Item Value Reference Range Interpretation Comments MPV (test code = MPV) 8.9 7.4-10.4 [facility] CenterWmcsebtNNNZCHWNLT2860-63-89 17:33:00 Test Item Value Reference Range Interpretation Comments PT (test code = PT) 14.7 s 12.0-14.7 [facility] CenterHlumksdASOLPBAUIX6647-76-04 17:33:00 Test Item Value Reference Range Interpretation Comments INR (test code = INR) 1.15 1 0.85-1.17 [facility]VsjqkluMRSXGYUNHW6154-49-30 17:33:00 Test Item Value Reference Range Interpretation Comments PTT (test code = PTT) 35.2 s 22.9-35.8 [facility] IUXSWHU8779-72-10 17:33:00 Test Item Value Reference Range Interpretation Comments ABO/Rh (test code = ABO/Rh) O POS [facility] MUEXGNW4711-63-28 17:33:00 Test Item Value Reference Range Interpretation Comments Antibody Scrn (test Negative (12/23/22 code = Antibody Scrn) 12:33 PM) [facility]HcvluneHRJSBZZDJ2870-06-35 17:33:00 Test Item Value Reference Range Interpretation Comments Glucose Lvl (test code = Glucose Lvl) 112 70-99 [facility] CenterYqneuipLLPAAWAHM4687-05-36 17:33:00 Test Item Value Reference Range Interpretation Comments BUN (test code = BUN) 86 7-22 [facility] CenterUcqusfjLSRKKOODD3013-18-16 17:33:00 Test Item Value Reference Range Interpretation Comments Creatinine Lvl (test code = Creatinine 4.90 0.50-1.40 Lvl) [facility] CenterXnocrfsEPWUBFKUK6242-06-06 17:33:00 Test Item Value Reference Range Interpretation Comments Sodium Lvl (test code = Sodium Lvl) 139 135-145 [facility] CenterAgntkwxQIDBAGBHG7638-22-85 17:33:00 Test Item Value Reference Range Interpretation Comments Potassium Lvl (test code = Potassium 4.7 3.5-5.1 Lvl) [facility] CenterUatyjffVXFPXAFWW2652-53-61 17:33:00 Test Item Value Reference Range Interpretation Comments Chloride Lvl (test code = Chloride Lvl) 110 95-109 [facility] CenterBnaxdmmMURWAOEER8114-06-16 17:33:00 Test Item Value Reference Range Interpretation Comments CO2 (test code = CO2) 21 24-32 [facility] CenterCkydhxzKJHLZVFUX6254-59-20 17:33:00 Test Item Value Reference Range Interpretation Comments Calcium Lvl (test code = Calcium Lvl) 8.1 8.5-10.5 [facility] CenterZisvwdlMVQTNPAYH3548-60-98 17:33:00 Test Item Value Reference Range Interpretation Comments AGAP (test code = AGAP) 12.7 10.0-20.0 [place] 635833-04-20 17:33:00 Test Item Value Reference Range Interpretation Comments eGFR (test code = eGFR) 12 [facility] CenterTpidojvQXZQMGAORZ3681-56-55 17:33:00 Test Item Value Reference Range Interpretation Comments Segs (test code = Segs) 65.1 45.0-75.0 [facility] CenterZwioyofZKHUZORCQS0548-56-11 17:33:00 Test Item Value Reference Range Interpretation Comments Lymphocytes (test code = Lymphocytes) 18.3 20.0-40.0 [facility] CenterFcexgjfDHPFQDUCYL5302-72-67 17:33:00 Test Item Value Reference Range Interpretation Comments Monocytes (test code = Monocytes) 10.2 2.0-12.0 [facility] CenterVtcattvNAPXUIECVZ8571-87-07 17:33:00 Test Item Value Reference Range Interpretation Comments Eosinophils (test code = 4.9 See_Comment [A utomated message] The Eosinophils) system which ge nerated this result tra nsmitted reference range : <=4.0. The reference r taye was not used to int erpret this result as normal/abnormal . [facility] CenterNhrbehjHIDBCGDOFJ9663-75-95 17:33:00 Test Item Value Reference Range Interpretation Comments Basophils (test code = 1.5 See_Comment [Aut omated message] The Basophils) system which ge nerated this result tra nsmitted reference range : <=1.0. The reference r taye was not used to int erpret this result as normal/abnormal . [facility] CenterUoxfcjwUKKNDGXREP4631-25-89 17:33:00 Test Item Value Reference Range Interpretation Comments Neutrophils # (test code = Neutrophils 4.0 1.5-8.1 #) [facility] CenterBffmsyqAMLFVOANFC0831-68-09 17:33:00 Test Item Value Reference Range Interpretation Comments Lymphocytes # (test code = Lymphocytes 1.1 1.0-5.5 #) [facility] CenterTpxrwedHMEBMBCPZF4204-57-78 17:33:00 Test Item Value Reference Range Interpretation Comments Monocytes # (test code 0.6 See_Comment [Aut omated message] The = Monocytes #) system which generated this result tra nsmitted reference range : <=0.8. The reference r taye was not used to int erpret this result as normal/abnormal . [facility] CenterMtbgfazWDTFJFOGQJ8652-82-58 17:33:00 Test Item Value Reference Range Interpretation Comments Eosinophils # (test code 0.3 See_Comment [A utomated message] The = Eosinophils #) system whic h generated this result tra nsmitted reference range : <=0.5. The reference r taye was not used to int erpret this result as normal/abnormal . [facility] CenterIsixzwdNANSADZPSG9298-53-53 17:33:00 Test Item Value Reference Range Interpretation Comments Basophils # (test code 0.1 See_Comment [Aut omated message] The = Basophils #) system which generated this result tra nsmitted reference range : <=0.2. The reference r taye was not used to int erpret this result as normal/abnormal . [facility] CenterUupjsqtPNWCIJVIQR8076-59-81 17:33:00 Test Item Value Reference Range Interpretation Comments WBC (test code = WBC) 6.1 3.7-10.4 [facility] CenterNzcoxyyVMNMDCCXEG7406-15-07 17:33:00 Test Item Value Reference Range Interpretation Comments RBC (test code = RBC) 4.15 4.70-6.10 [facility] CenterVsertkbYRFSWDUCAK4633-27-26 17:33:00 Test Item Value Reference Range Interpretation Comments Hgb (test code = Hgb) 12.7 14.0-18.0 [facility] CenterKepxckhKZWFLZFIZM4423-63-59 17:33:00 Test Item Value Reference Range Interpretation Comments Hct (test code = Hct) 39.0 42.0-54.0 [facility] CenterPprupirQMGHWOIZBV0674-39-50 17:33:00 Test Item Value Reference Range Interpretation Comments MCV (test code = MCV) 93.8 80.0-94.0 [facility] CenterXlzmaiyUYTGSLKHGQ1386-34-07 17:33:00 Test Item Value Reference Range Interpretation Comments MCH (test code = MCH) 30.5 pg 27.0-31.0 [facility] CenterCnllvdkFKYFICPPKQ2722-23-38 17:33:00 Test Item Value Reference Range Interpretation Comments MCHC (test code = MCHC) 32.5 32.0-36.0 [facility] CenterOmynuftYSGLJGUCDB7834-21-98 17:33:00 Test Item Value Reference Range Interpretation Comments RDW (test code = RDW) 16.0 11.5-14.5 [facility] CenterKrldveiXFNTMEFETL3189-05-58 17:33:00 Test Item Value Reference Range Interpretation Comments Platelet (test code = Platelet) 233 133-450 [facility]ApcicenZAAIRWIJCR4535-43-85 17:33:00 Test Item Value Reference Range Interpretation Comments MPV (test code = MPV) 8.9 7.4-10.4 [facility] DallasVbfrruhUAYBGNEZKS5332-74-86 17:33:00 Test Item Value Reference Range Interpretation Comments PT (test code = PT) 14.7 s 12.0-14.7 [facility] EkidalfFNJQDDIBFQ8632-81-57 17:33:00 Test Item Value Reference Range Interpretation Comments INR (test code = INR) 1.15 1 0.85-1.17 [facility] DallasAwqiitsNEOQIKFNJS4478-06-91 17:33:00 Test Item Value Reference Range Interpretation Comments PTT (test code = PTT) 35.2 s 22.9-35.8 [facility] [employer] ROWYKLL8046-33-77 17:33:00 Test Item Value Reference Range Interpretation Comments ABO/Rh (test code = ABO/Rh) O POS [facility] [employer] XUQPRHG6621-81-05 17:33:00 Test Item Value Reference Range Interpretation Comments Antibody Scrn (test Negative (12/23/22 code = Antibody Scrn) 12:33 PM) [facility] DallasIapuqhgWIGDBRLGN8433-34-19 17:33:00 Test Item Value Reference Range Interpretation Comments Glucose Lvl (test code = Glucose Lvl) 112 70-99 [facility] DallasSsolhlvZWOQMTFFC0141-10-49 17:33:00 Test Item Value Reference Range Interpretation Comments BUN (test code = BUN) 86 7-22 [facility] DallasDaqplxwNTTNQELGH2169-03-17 17:33:00 Test Item Value Reference Range Interpretation Comments Creatinine Lvl (test code = Creatinine 4.90 0.50-1.40 Lvl) [facility] DallasKgpcsqfCFTUXAGWQ6797-57-11 17:33:00 Test Item Value Reference Range Interpretation Comments Sodium Lvl (test code = Sodium Lvl) 139 135-145 [facility] DallasDccmereEXMHTSUHC2504-08-26 17:33:00 Test Item Value Reference Range Interpretation Comments Potassium Lvl (test code = Potassium 4.7 3.5-5.1 Lvl) [facility] DallasQihmenvNKVODGCWB9653-85-65 17:33:00 Test Item Value Reference Range Interpretation Comments Chloride Lvl (test code = Chloride Lvl) 110 95-109 [facility] DallasQdltepdRSABYANCL3376-58-04 17:33:00 Test Item Value Reference Range Interpretation Comments CO2 (test code = CO2) 21 24-32 [facility] CenterRmmvgmdCKYYNRLOO0645-45-39 17:33:00 Test Item Value Reference Range Interpretation Comments Calcium Lvl (test code = Calcium Lvl) 8.1 8.5-10.5 [facility] CenterCznikhiYBSDLPIFK4340-56-43 17:33:00 Test Item Value Reference Range Interpretation Comments AGAP (test code = AGAP) 12.7 10.0-20.0 [facility] CenterJhhuaimBYSVDNGYY8463-93-84 17:33:00 Test Item Value Reference Range Interpretation Comments eGFR (test code = eGFR) 12 [facility] CenterRroeowvTYUQGZQLVC9966-47-05 17:33:00 Test Item Value Reference Range Interpretation Comments Segs (test code = Segs) 65.1 45.0-75.0 [facility] CenterQdumctuHEVUEKWAII9028-96-83 17:33:00 Test Item Value Reference Range Interpretation Comments Lymphocytes (test code = Lymphocytes) 18.3 20.0-40.0 [facility] CenterMrbideeKJIPZVLUFK2334-53-93 17:33:00 Test Item Value Reference Range Interpretation Comments Monocytes (test code = Monocytes) 10.2 2.0-12.0 [facility] CenterFrsjxfsGODGJOCIGI6591-08-98 17:33:00 Test Item Value Reference Range Interpretation Comments Eosinophils (test code = 4.9 See_Comment [A utomated message] The Eosinophils) system which ge nerated this result tra nsmitted reference range : <=4.0. The reference r taye was not used to int erpret this result as normal/abnormal . [facility] CenterGmkphpuIBHRNISRWW4682-62-90 17:33:00 Test Item Value Reference Range Interpretation Comments Basophils (test code = 1.5 See_Comment [Aut omated message] The Basophils) system which ge nerated this result tra nsmitted reference range : <=1.0. The reference r taye was not used to int erpret this result as normal/abnormal . [facility] CenterWnajdzfBJYUJVXETM1604-03-60 17:33:00 Test Item Value Reference Range Interpretation Comments Neutrophils # (test code = Neutrophils 4.0 1.5-8.1 #) [facility] CenterQrggbapAUMIXMPCQI2906-83-96 17:33:00 Test Item Value Reference Range Interpretation Comments Lymphocytes # (test code = Lymphocytes 1.1 1.0-5.5 #) [facility] CenterUpzdyboUYYHBNKHJK2460-12-61 17:33:00 Test Item Value Reference Range Interpretation Comments Monocytes # (test code 0.6 See_Comment [Aut omated message] The = Monocytes #) system which generated this result tra nsmitted reference range : <=0.8. The reference r taye was not used to int erpret this result as normal/abnormal . [facility] CenterYhvhjcsUKVEJCXBMZ7443-25-74 17:33:00 Test Item Value Reference Range Interpretation Comments Eosinophils # (test code 0.3 See_Comment [A utomated message] The = Eosinophils #) system whic h generated this result tra nsmitted reference range : <=0.5. The reference r taye was not used to int erpret this result as normal/abnormal . [facility] CenterGkblcadWLZMPUVUGY0982-85-51 17:33:00 Test Item Value Reference Range Interpretation Comments Basophils # (test code 0.1 See_Comment [Aut omated message] The = Basophils #) system which generated this result tra nsmitted reference range : <=0.2. The reference r taye was not used to int erpret this result as normal/abnormal . [facility] CenterEbjjrxkGNKSGVNNGB1456-12-56 17:33:00 Test Item Value Reference Range Interpretation Comments WBC (test code = WBC) 6.1 3.7-10.4 [facility] CenterUclcisnZUDGWPJEDC4911-38-08 17:33:00 Test Item Value Reference Range Interpretation Comments RBC (test code = RBC) 4.15 4.70-6.10 [place] 911253-04-20 17:33:00 Test Item Value Reference Range Interpretation Comments Hgb (test code = Hgb) 12.7 14.0-18.0 [place] [address]-04-20 17:33:00 Test Item Value Reference Range Interpretation Comments Hct (test code = Hct) 39.0 42.0-54.0 [place] 911253-04-20 17:33:00 Test Item Value Reference Range Interpretation Comments MCV (test code = MCV) 93.8 80.0-94.0 [place] 911253-04-20 17:33:00 Test Item Value Reference Range Interpretation Comments MCH (test code = MCH) 30.5 pg 27.0-31.0 [facility] JacksonUedahbmPJYAOTTJLK9979-90-47 17:33:00 Test Item Value Reference Range Interpretation Comments MCHC (test code = MCHC) 32.5 32.0-36.0 [facility]CqpluelPICXNQWHJF1873-74-52 17:33:00 Test Item Value Reference Range Interpretation Comments RDW (test code = RDW) 16.0 11.5-14.5 [facility] DallasFwlhmujEUJIWXMVIU6509-10-79 17:33:00 Test Item Value Reference Range Interpretation Comments Platelet (test code = Platelet) 233 133-450 [facility] CenterCqihfwsJUJUKUDUFW1414-83-53 17:33:00 Test Item Value Reference Range Interpretation Comments MPV (test code = MPV) 8.9 7.4-10.4 [facility] HospitalSmaalpxXTUNIUZNQF5494-36-32 17:33:00 Test Item Value Reference Range Interpretation Comments PT (test code = PT) 14.7 s 12.0-14.7 [facility] DallasVhanobwCBVNUNTHMH1832-01-65 17:33:00 Test Item Value Reference Range Interpretation Comments INR (test code = INR) 1.15 1 0.85-1.17 [facility] HospitalYftshjdTKVKYUNJUN3358-70-23 17:33:00 Test Item Value Reference Range Interpretation Comments PTT (test code = PTT) 35.2 s 22.9-35.8 [facility] [employer] ZUAGEOB6446-88-16 17:33:00 Test Item Value Reference Range Interpretation Comments ABO/Rh (test code = ABO/Rh) O POS [facility] [employer] XHBBPNY3686-25-85 17:33:00 Test Item Value Reference Range Interpretation Comments ABO/Rh (test code = ABO/Rh) O POS [facility] [employer] KOKGJBH0359-61-46 17:33:00 Test Item Value Reference Range Interpretation Comments Antibody Scrn (test Negative (12/23/22 code = Antibody Scrn) 12:33 PM) [facility] HospitalEaucxgqOGDMGZIMF8861-44-33 17:33:00 Test Item Value Reference Range Interpretation Comments Glucose Lvl (test code = Glucose Lvl) 112 70-99 [facility] CenterYmdsficIKSOHPQDK5439-80-05 17:33:00 Test Item Value Reference Range Interpretation Comments BUN (test code = BUN) 86 7-22 [facility] CenterYmlcjsdLEVIYGGOB5388-13-37 17:33:00 Test Item Value Reference Range Interpretation Comments Creatinine Lvl (test code = Creatinine 4.90 0.50-1.40 Lvl) [facility] HospitalLab21 [facility] LGACIAP8497-21-35 17:33:00 Test Item Value Reference Range Interpretation Comments Antibody Scrn (test Negative (12/23/22 code = Antibody Scrn) 12:33 PM) [facility] CenterNlscvjfZFFVBABEX4766-01-22 17:33:00 Test Item Value Reference Range Interpretation Comments Sodium Lvl (test code = Sodium Lvl) 139 135-145 [facility] CenterTdfxjyjNPGLAXFIR1312-69-05 17:33:00 Test Item Value Reference Range Interpretation Comments Potassium Lvl (test code = Potassium 4.7 3.5-5.1 Lvl) [facility] CenterAwxqminGXLRHXWFW0684-03-34 17:33:00 Test Item Value Reference Range Interpretation Comments Chloride Lvl (test code = Chloride Lvl) 110 95-109 [facility] CenterFxgkizuNMLDDJAEC9753-61-52 17:33:00 Test Item Value Reference Range Interpretation Comments CO2 (test code = CO2) 21 24-32 [facility] CenterOovlbotYTQAMUZHF7931-56-51 17:33:00 Test Item Value Reference Range Interpretation Comments Calcium Lvl (test code = Calcium Lvl) 8.1 8.5-10.5 [facility] CenterNjiputxMZPMAHOJQ4608-63-94 17:33:00 Test Item Value Reference Range Interpretation Comments AGAP (test code = AGAP) 12.7 10.0-20.0 [facility] CenterRlzgvbwVXDSTQHYG1817-68-69 17:33:00 Test Item Value Reference Range Interpretation Comments eGFR (test code = eGFR) 12 [facility] JacksonWcqnrsuMDXGKIZLFM8371-45-42 17:33:00 Test Item Value Reference Range Interpretation Comments Segs (test code = Segs) 65.1 45.0-75.0 [facility] CenterDgxhgawSPTVLQIXBD0925-70-25 17:33:00 Test Item Value Reference Range Interpretation Comments Lymphocytes (test code = Lymphocytes) 18.3 20.0-40.0 [facility] CenterZucehzdHIGCGAXDJT3525-63-81 17:33:00 Test Item Value Reference Range Interpretation Comments Monocytes (test code = Monocytes) 10.2 2.0-12.0 [facility] CenterUwajxfmEOSDLLBKJ6446-84-92 17:33:00 Test Item Value Reference Range Interpretation Comments Glucose Lvl (test code = Glucose Lvl) 112 70-99 [facility] CenterNgtzeblFSDAIGNVZV6717-78-52 17:33:00 Test Item Value Reference Range Interpretation Comments Eosinophils (test code = 4.9 See_Comment [A utomated message] The Eosinophils) system which ge nerated this result tra nsmitted reference range : <=4.0. The reference r taye was not used to int erpret this result as normal/abnormal . [facility] CenterOkrrmvgWMSFEFOYAZ2003-20-43 17:33:00 Test Item Value Reference Range Interpretation Comments Basophils (test code = 1.5 See_Comment [Aut omated message] The Basophils) system which ge nerated this result tra nsmitted reference range : <=1.0. The reference r taye was not used to int erpret this result as normal/abnormal . [facility] CenterHlbewnoEJSTLMTAGQ7472-59-05 17:33:00 Test Item Value Reference Range Interpretation Comments Neutrophils # (test code = Neutrophils 4.0 1.5-8.1 #) [facility] CenterZxgqtfvANCSEPYDLE5289-15-65 17:33:00 Test Item Value Reference Range Interpretation Comments Lymphocytes # (test code = Lymphocytes 1.1 1.0-5.5 #) [facility] CenterDrzripgESHBRJDUMD4605-82-32 17:33:00 Test Item Value Reference Range Interpretation Comments Monocytes # (test code 0.6 See_Comment [Aut omated message] The = Monocytes #) system which generated this result tra nsmitted reference range : <=0.8. The reference r taye was not used to int erpret this result as normal/abnormal . [facility] CenterEphagqhTZQOSUBQVM0251-68-51 17:33:00 Test Item Value Reference Range Interpretation Comments Eosinophils # (test code 0.3 See_Comment [A utomated message] The = Eosinophils #) system whic h generated this result tra nsmitted reference range : <=0.5. The reference r taye was not used to int erpret this result as normal/abnormal . [facility] CenterEeyhlrlKJYFQJPEWN5720-95-60 17:33:00 Test Item Value Reference Range Interpretation Comments Basophils # (test code 0.1 See_Comment [Aut omated message] The = Basophils #) system which generated this result tra nsmitted reference range : <=0.2. The reference r taye was not used to int erpret this result as normal/abnormal . [place] 911253-04-20 17:33:00 Test Item Value Reference Range Interpretation Comments WBC (test code = WBC) 6.1 3.7-10.4 [facility] CenterHzwgirnUFYRXRPLEL4296-98-87 17:33:00 Test Item Value Reference Range Interpretation Comments RBC (test code = RBC) 4.15 4.70-6.10 [facility] CenterYvhjxioKNVRSTYVBV9905-06-37 17:33:00 Test Item Value Reference Range Interpretation Comments Hgb (test code = Hgb) 12.7 14.0-18.0 [facility] CenterOjjgunwEJHCYAXYO3071-08-61 17:33:00 Test Item Value Reference Range Interpretation Comments BUN (test code = BUN) 86 7-22 [facility] CenterDyrngdmPVFHTXVZSX1848-41-31 17:33:00 Test Item Value Reference Range Interpretation Comments Hct (test code = Hct) 39.0 42.0-54.0 [facility] CenterDyfbnuoXLZTHACKWU0496-51-14 17:33:00 Test Item Value Reference Range Interpretation Comments MCV (test code = MCV) 93.8 80.0-94.0 [facility] CenterYjdpbhfBHUTQBBYAB2186-66-81 17:33:00 Test Item Value Reference Range Interpretation Comments MCH (test code = MCH) 30.5 pg 27.0-31.0 [facility] CenterWotupowGESFKWYLMR4413-04-04 17:33:00 Test Item Value Reference Range Interpretation Comments MCHC (test code = MCHC) 32.5 32.0-36.0 [facility] CenterVephemsDUXGRQBFYU5082-89-54 17:33:00 Test Item Value Reference Range Interpretation Comments RDW (test code = RDW) 16.0 11.5-14.5 [facility] CenterFylzeyvSVBHGAKWEW8363-86-97 17:33:00 Test Item Value Reference Range Interpretation Comments Platelet (test code = Platelet) 233 133-450 [facility] CenterAgkqawdDQIGPYVITH5120-05-98 17:33:00 Test Item Value Reference Range Interpretation Comments MPV (test code = MPV) 8.9 7.4-10.4 [facility] CenterEnmsafdIKJEVYBSXX5880-65-24 17:33:00 Test Item Value Reference Range Interpretation Comments PT (test code = PT) 14.7 s 12.0-14.7 [facility] CenterXnqhtqwRQRFFEGDBE9719-20-57 17:33:00 Test Item Value Reference Range Interpretation Comments INR (test code = INR) 1.15 1 0.85-1.17 [facility] CenterJwwcrzlCVEILOOYQW7122-45-34 17:33:00 Test Item Value Reference Range Interpretation Comments PTT (test code = PTT) 35.2 s 22.9-35.8 [facility] CenterKflzfskOOEUQVSRP2798-41-51 17:33:00 Test Item Value Reference Range Interpretation Comments Creatinine Lvl (test code = Creatinine 4.90 0.50-1.40 Lvl) [facility] CenterGjsppmwRLIEGWQCB2910-75-80 17:33:00 Test Item Value Reference Range Interpretation Comments Sodium Lvl (test code = Sodium Lvl) 139 135-145 [facility] CenterLyplrddOBUNMHIBE8566-14-19 17:33:00 Test Item Value Reference Range Interpretation Comments Potassium Lvl (test code = Potassium 4.7 3.5-5.1 Lvl) [facility] CenterMwqdeqiFDSGNJNAP1181-91-09 17:33:00 Test Item Value Reference Range Interpretation Comments Chloride Lvl (test code = Chloride Lvl) 110 95-109 [facility] CenterQaaaexlPDHPDCKHS4204-77-74 17:33:00 Test Item Value Reference Range Interpretation Comments CO2 (test code = CO2) 21 24-32 [facility] CenterCfbigyhSXOWHOCBV5108-62-07 17:33:00 Test Item Value Reference Range Interpretation Comments Calcium Lvl (test code = Calcium Lvl) 8.1 8.5-10.5 [facility] CenterYridgkiAEGTZELGJ6041-32-41 17:33:00 Test Item Value Reference Range Interpretation Comments AGAP (test code = AGAP) 12.7 10.0-20.0 [facility] CenterHlrgyzuNUOPCEEDL2159-69-90 17:33:00 Test Item Value Reference Range Interpretation Comments eGFR (test code = eGFR) 12 [facility] CenterXjqyxtsUJHXUAJIMF5179-90-82 17:33:00 Test Item Value Reference Range Interpretation Comments Segs (test code = Segs) 65.1 45.0-75.0 [facility] CenterTmniutbEVXLORMOFY9703-11-71 17:33:00 Test Item Value Reference Range Interpretation Comments Lymphocytes (test code = Lymphocytes) 18.3 20.0-40.0 [facility] CenterLoeouseMIGPFECRWW0058-85-97 17:33:00 Test Item Value Reference Range Interpretation Comments Monocytes (test code = Monocytes) 10.2 2.0-12.0 [facility] CenterAninkspQBWCRZMAJL5155-31-73 17:33:00 Test Item Value Reference Range Interpretation Comments Eosinophils (test code = 4.9 See_Comment [A utomated message] The Eosinophils) system which ge nerated this result tra nsmitted reference range : <=4.0. The reference r taye was not used to int erpret this result as normal/abnormal . [place] 911253-04-20 17:33:00 Test Item Value Reference Range Interpretation Comments Basophils (test code = 1.5 See_Comment [Aut omated message] The Basophils) system which ge nerated this result tra nsmitted reference range : <=1.0. The reference r taye was not used to int erpret this result as normal/abnormal . [place] 476013-03-30 21:27:00 Test Item Value Reference Range Interpretation Comments Glucose POC (test code = Glucose POC) [address] [place] [address]-03-30 21:27:00 Test Item Value Reference Range Interpretation Comments Glucose POC (test code = Glucose POC) [address] [place] [address]-03-30 21:27:00 Test Item Value Reference Range Interpretation Comments Glucose POC (test code = Glucose POC) 106 70-[address]03-30 21:27:00 Test Item Value Reference Range Interpretation Comments Glucose POC (test code = Glucose POC) 106 70-[address]03-30 21:27:00 Test Item Value Reference Range Interpretation Comments Glucose POC (test code = Glucose POC) [address] [place] [address]-03-30 21:27:00 Test Item Value Reference Range Interpretation Comments Glucose POC (test code = Glucose POC) 106 70-[address]03-30 21:27:00 Test Item Value Reference Range Interpretation Comments Glucose POC (test code = Glucose POC) 106 70-99 [place] 813533-03-30 17:34:35 Test Item Value Reference Range Interpretation Comments RADRPT (test code PROCEDURE INFORMATION: Exam: = RADRPT) XR Chest Exam date and time: 12/02/2022 9:36 AM Age: 62 years old Clinical indication: Pre-operative exam; Cardiovascular screening and respiratory screening exam; Additional info: Coughing/preoperative TECHNIQUE: Imaging protocol: Radiologic exam of the chest. Views: 2 views. COMPARISON: No relevant prior studies available. FINDINGS: Lungs: No focal airspace disease. Pleural spaces: No pleural effusion. No pneumothorax. Heart/Mediastinum: Enlargement of the cardiomediastinal silhouette. Bones/joints: Chronic left lateral rib fractures. No acute abnormality. IMPRESSION: No focal airspace disease. Bryan Ricci MD On 12/02/2022 12:33:24; [id number] [facility]EfzgrimSVVMLE9247-94-42 17:34:35 Test Item Value Reference Range Interpretation Comments RADRPT (test code PROCEDURE INFORMATION: Exam: = RADRPT) XR Chest Exam date and time: 12/02/2022 9:36 AM Age: 62 years old Clinical indication: Pre-operative exam; Cardiovascular screening and respiratory screening exam; Additional info: Coughing/preoperative TECHNIQUE: Imaging protocol: Radiologic exam of the chest. Views: 2 views. COMPARISON: No relevant prior studies available. FINDINGS: Lungs: No focal airspace disease. Pleural spaces: No pleural effusion. No pneumothorax. Heart/Mediastinum: Enlargement of the cardiomediastinal silhouette. Bones/joints: Chronic left lateral rib fractures. No acute abnormality. IMPRESSION: No focal airspace disease. Bryan Ricci MD On 12/02/2022 12:33:24; [id number] [facility]cosFphnxvoDRHVCE0612-65-19 17:34:35 Test Item Value Reference Range Interpretation Comments RADRPT (test code PROCEDURE INFORMATION: Exam: = RADRPT) XR Chest Exam date and time: 12/02/2022 9:36 AM Age: 62 years old Clinical indication: Pre-operative exam; Cardiovascular screening and respiratory screening exam; Additional info: Coughing/preoperative TECHNIQUE: Imaging protocol: Radiologic exam of the chest. Views: 2 views. COMPARISON: No relevant prior studies available. FINDINGS: Lungs: No focal airspace disease. Pleural spaces: No pleural effusion. No pneumothorax. Heart/Mediastinum: Enlargement of the cardiomediastinal silhouette. Bones/joints: Chronic left lateral rib fractures. No acute abnormality. IMPRESSION: No focal airspace disease. Bryan Ricci MD On 12/02/2022 12:33:24; [id number] [facility]cosUlwromoTIIKEY3995-56-19 17:34:35 Test Item Value Reference Range Interpretation Comments RADRPT (test code PROCEDURE INFORMATION: Exam: = RADRPT) XR Chest Exam date and time: 12/02/2022 9:36 AM Age: 62 years old Clinical indication: Pre-operative exam; Cardiovascular screening and respiratory screening exam; Additional info: Coughing/preoperative TECHNIQUE: Imaging protocol: Radiologic exam of the chest. Views: 2 views. COMPARISON: No relevant prior studies available. FINDINGS: Lungs: No focal airspace disease. Pleural spaces: No pleural effusion. No pneumothorax. Heart/Mediastinum: Enlargement of the cardiomediastinal silhouette. Bones/joints: Chronic left lateral rib fractures. No acute abnormality. IMPRESSION: No focal airspace disease. Bryan Ricci MD On 12/02/2022 12:33:24; [id number] [facility]cosRvtuuhbSGMNBB1967-63-86 17:34:35 Test Item Value Reference Range Interpretation Comments RADRPT (test code PROCEDURE INFORMATION: Exam: = RADRPT) XR Chest Exam date and time: 12/02/2022 9:36 AM Age: 62 years old Clinical indication: Pre-operative exam; Cardiovascular screening and respiratory screening exam; Additional info: Coughing/preoperative TECHNIQUE: Imaging protocol: Radiologic exam of the chest. Views: 2 views. COMPARISON: No relevant prior studies available. FINDINGS: Lungs: No focal airspace disease. Pleural spaces: No pleural effusion. No pneumothorax. Heart/Mediastinum: Enlargement of the cardiomediastinal silhouette. Bones/joints: Chronic left lateral rib fractures. No acute abnormality. IMPRESSION: No focal airspace disease. Bryan Ricci MD On 12/02/2022 12:33:24; [id number] [facility] HospitalThmwxqeJEPGUV8447-32-33 17:34:35 Test Item Value Reference Range Interpretation Comments RADRPT (test code PROCEDURE INFORMATION: Exam: = RADRPT) XR Chest Exam date and time: 12/02/2022 9:36 AM Age: 62 years old Clinical indication: Pre-operative exam; Cardiovascular screening and respiratory screening exam; Additional info: Coughing/preoperative TECHNIQUE: Imaging protocol: Radiologic exam of the chest. Views: 2 views. COMPARISON: No relevant prior studies available. FINDINGS: Lungs: No focal airspace disease. Pleural spaces: No pleural effusion. No pneumothorax. Heart/Mediastinum: Enlargement of the cardiomediastinal silhouette. Bones/joints: Chronic left lateral rib fractures. No acute abnormality. IMPRESSION: No focal airspace disease. Bryan Ricci MD On 12/02/2022 12:33:24; [id number] [facility] HospitalEnegjlvGARNOT0239-80-45 17:34:35 Test Item Value Reference Range Interpretation Comments RADRPT (test code PROCEDURE INFORMATION: Exam: = RADRPT) XR Chest Exam date and time: 12/02/2022 9:36 AM Age: 62 years old Clinical indication: Pre-operative exam; Cardiovascular screening and respiratory screening exam; Additional info: Coughing/preoperative TECHNIQUE: Imaging protocol: Radiologic exam of the chest. Views: 2 views. COMPARISON: No relevant prior studies available. FINDINGS: Lungs: No focal airspace disease. Pleural spaces: No pleural effusion. No pneumothorax. Heart/Mediastinum: Enlargement of the cardiomediastinal silhouette. Bones/joints: Chronic left lateral rib fractures. No acute abnormality. IMPRESSION: No focal airspace disease. Bryan Ricci MD On 12/02/2022 12:33:24; [id number] [facility] CenterGienwkfNAUEEALULR5075-31-39 15:07:00 Test Item Value Reference Range Interpretation Comments INR (test code = INR) 1.14 1 0.85-1.17 [facility] CenterCjglnevJILVYQFUXP5275-11-50 15:07:00 Test Item Value Reference Range Interpretation Comments PTT (test code = PTT) 33.9 s 22.9-35.8 [facility] CenterHsawlnoMAZGRTKQOL3802-01-25 15:07:00 Test Item Value Reference Range Interpretation Comments Neutrophils # (test code = Neutrophils 8.1 1.5-8.1 #) [place] 911253-03-30 15:07:00 Test Item Value Reference Range Interpretation Comments Lymphocytes # (test code = Lymphocytes 0.7 1.0-5.5 #) [place] 911253-03-30 15:07:00 Test Item Value Reference Range Interpretation Comments Monocytes # (test code 0.8 See_Comment [Aut omated message] The = Monocytes #) system which generated this result tra nsmitted reference range : <=0.8. The reference r taye was not used to int erpret this result as normal/abnormal . [place] 911253-03-30 15:07:00 Test Item Value Reference Range Interpretation Comments Segs (test code = Segs) 85.0 45.0-75.0 [facility] CenterObbwamvYCPOYQHYAO1522-09-32 15:07:00 Test Item Value Reference Range Interpretation Comments Bands (test code = 0.0 See_Comment [Automat ed message] The Bands) system which ge nerated this result transmit flor reference range : <=11.0. The reference r taye was not used to interpr et this result as salomón l/abnormal. [facility] CenterUdzkbjiJQAJWWYYEP9948-44-27 15:07:00 Test Item Value Reference Range Interpretation Comments Lymphocytes (test code = Lymphocytes) 7.0 20.0-40.0 [facility] CenterJuiceakUHWGNUWYGA7034-60-79 15:07:00 Test Item Value Reference Range Interpretation Comments Monocytes (test code = Monocytes) 8.0 2.0-12.0 [facility] CenterQqhgqiqNHOEZCSPJS5400-57-55 15:07:00 Test Item Value Reference Range Interpretation Comments Atypical Lymphs (test code = Atypical 0.0 Lymphs) [facility] CenterLyspnliSYBRTDUEQZ4117-14-46 15:07:00 Test Item Value Reference Range Interpretation Comments RBC Morph (test code = Normal (12/02/22 10:07 RBC Morph) AM) [facility]RancijwXEIQIUAFZG0651-55-89 15:07:00 Test Item Value Reference Range Interpretation Comments Plt Morph (test code = Normal (12/02/22 10:07 Plt Morph) AM) [facility] HospitalLab21 [facility] LVTRSGF3891-75-52 15:07:00 Test Item Value Reference Range Interpretation Comments ABO/Rh (test code = ABO/Rh) [facility] LLLTZQD5430-94-82 15:07:00 Test Item Value Reference Range Interpretation Comments Antibody Scrn (test Negative (12/02/22 code = Antibody Scrn) 10:07 AM) [facility] CenterQnesfwzINEWFOXFF4852-61-53 15:07:00 Test Item Value Reference Range Interpretation Comments Glucose Lvl (test code = Glucose Lvl) 162 70-99 [facility] CenterOttththJSRKISRSG5902-43-15 15:07:00 Test Item Value Reference Range Interpretation Comments BUN (test code = BUN) 101 7-22 [facility] CenterOsfhhpzBIBFWGLFT8480-03-16 15:07:00 Test Item Value Reference Range Interpretation Comments Creatinine Lvl (test code = Creatinine 4.74 0.50-1.40 Lvl) [facility] CenterPozwpkeKYRLRDGCH2462-35-44 15:07:00 Test Item Value Reference Range Interpretation Comments Sodium Lvl (test code = Sodium Lvl) 137 135-145 [facility] CenterDriqkdhHNNICUAMF2009-29-90 15:07:00 Test Item Value Reference Range Interpretation Comments Potassium Lvl (test code = Potassium 4.9 3.5-5.1 Lvl) [facility] CenterCktktuuHCQDBLTMA1488-95-39 15:07:00 Test Item Value Reference Range Interpretation Comments Chloride Lvl (test code = Chloride Lvl) 107 95-109 [facility] CenterWkydydlNZFGNQOBE6338-19-48 15:07:00 Test Item Value Reference Range Interpretation Comments CO2 (test code = CO2) 22 24-32 [facility] CenterPpolxkxSOSCUWZVZ5099-58-83 15:07:00 Test Item Value Reference Range Interpretation Comments Calcium Lvl (test code = Calcium Lvl) 7.9 8.5-10.5 [facility] CenterLddvwwxPOMXQDHSV6861-39-34 15:07:00 Test Item Value Reference Range Interpretation Comments AGAP (test code = AGAP) 12.9 10.0-20.0 [facility] CenterVcbdxfzAOTRBYFER0189-13-22 15:07:00 Test Item Value Reference Range Interpretation Comments eGFR (test code = eGFR) 13 [facility] CenterTdtnyilWTWNVTYWMM3622-43-20 15:07:00 Test Item Value Reference Range Interpretation Comments WBC (test code = WBC) 9.5 3.7-10.4 [facility] CenterFezuwyjFGDEMDPHRB9641-14-61 15:07:00 Test Item Value Reference Range Interpretation Comments RBC (test code = RBC) 4.26 4.70-6.10 [place] 911253-03-30 15:07:00 Test Item Value Reference Range Interpretation Comments Hgb (test code = Hgb) 13.1 14.0-18.0 [place] [address]-03-30 15:07:00 Test Item Value Reference Range Interpretation Comments Hct (test code = Hct) 40.8 42.0-54.0 [facility] CenterVlfppcaLFISZXUESO7135-41-55 15:07:00 Test Item Value Reference Range Interpretation Comments MCV (test code = MCV) 95.6 80.0-94.0 [place] [address]-03-30 15:07:00 Test Item Value Reference Range Interpretation Comments MCH (test code = MCH) 30.7 pg 27.0-31.0 [place] 911253-03-30 15:07:00 Test Item Value Reference Range Interpretation Comments MCHC (test code = MCHC) 32.1 32.0-36.0 [place] [address]-03-30 15:07:00 Test Item Value Reference Range Interpretation Comments RDW (test code = RDW) 15.3 11.5-14.5 [place] [address]-03-30 15:07:00 Test Item Value Reference Range Interpretation Comments Platelet (test code = Platelet) 213 133-450 [place] 911253-03-30 15:07:00 Test Item Value Reference Range Interpretation Comments MPV (test code = MPV) 8.8 7.4-10.4 [place] [address]-03-30 15:07:00 Test Item Value Reference Range Interpretation Comments PT (test code = PT) 14.6 s 12.0-14.7 [place] [address]-03-30 15:07:00 Test Item Value Reference Range Interpretation Comments INR (test code = INR) 1.14 1 0.85-1.17 [place] [address]-03-30 15:07:00 Test Item Value Reference Range Interpretation Comments PTT (test code = PTT) 33.9 s 22.9-35.8 [place] [address]-03-30 15:07:00 Test Item Value Reference Range Interpretation Comments Neutrophils # (test code = Neutrophils 8.1 1.5-8.1 #) [place] 911253-03-30 15:07:00 Test Item Value Reference Range Interpretation Comments Lymphocytes # (test code = Lymphocytes 0.7 1.0-5.5 #) [place] [address]-03-30 15:07:00 Test Item Value Reference Range Interpretation Comments Monocytes # (test code 0.8 See_Comment [Aut omated message] The = Monocytes #) system which generated this result tra nsmitted reference range : <=0.8. The reference r taye was not used to int erpret this result as normal/abnormal . [place] 911253-03-30 15:07:00 Test Item Value Reference Range Interpretation Comments Segs (test code = Segs) 85.0 45.0-75.0 [facility] CenterNcvmhasCIVVCKMXNY6535-33-64 15:07:00 Test Item Value Reference Range Interpretation Comments Bands (test code = 0.0 See_Comment [Automat ed message] The Bands) system which ge nerated this result transmit flor reference range : <=11.0. The reference r taye was not used to interpr et this result as salomón l/abnormal. [facility] CenterRensyzjUGRPWALINT1677-86-10 15:07:00 Test Item Value Reference Range Interpretation Comments Lymphocytes (test code = Lymphocytes) 7.0 20.0-40.0 [facility] CenterDbxbzeqVGXVJWDSGX9176-74-38 15:07:00 Test Item Value Reference Range Interpretation Comments Monocytes (test code = Monocytes) 8.0 2.0-12.0 [facility] CenterMiegdjfARIXUPXTZH8091-54-86 15:07:00 Test Item Value Reference Range Interpretation Comments Atypical Lymphs (test code = Atypical 0.0 Lymphs) [facility] CenterSfkpjmlZZYLHSGPSA5861-94-80 15:07:00 Test Item Value Reference Range Interpretation Comments RBC Morph (test code = Normal (12/02/22 10:07 RBC Morph) AM) [facility] CenterCfnuhpqLYGBEQICLE5131-31-06 15:07:00 Test Item Value Reference Range Interpretation Comments Plt Morph (test code = Normal (12/02/22 10:07 Plt Morph) AM) [facility] YJYMTDR6874-50-89 15:07:00 Test Item Value Reference Range Interpretation Comments ABO/Rh (test code = ABO/Rh) [facility] FWYYBXX8766-00-40 15:07:00 Test Item Value Reference Range Interpretation Comments Antibody Scrn (test Negative (12/02/22 code = Antibody Scrn) 10:07 AM) [facility] CenterMgicdyhBLICQAYJX6697-10-81 15:07:00 Test Item Value Reference Range Interpretation Comments Glucose Lvl (test code = Glucose Lvl) 162 70-99 [facility] CenterGtghhvbRSPCQBMPF5092-00-29 15:07:00 Test Item Value Reference Range Interpretation Comments BUN (test code = BUN) 101 7-22 [facility] CenterFrrxhpsYQFFLXOAA1208-82-08 15:07:00 Test Item Value Reference Range Interpretation Comments Creatinine Lvl (test code = Creatinine 4.74 0.50-1.40 Lvl) [facility] CenterBfdqsglOFYHHCPCU4038-37-51 15:07:00 Test Item Value Reference Range Interpretation Comments Sodium Lvl (test code = Sodium Lvl) 137 135-145 [facility] CenterGbigmjtMGKNPQZTQ1601-24-67 15:07:00 Test Item Value Reference Range Interpretation Comments Potassium Lvl (test code = Potassium 4.9 3.5-5.1 Lvl) [facility] CenterWkbwqibRNEORHTTE4315-19-54 15:07:00 Test Item Value Reference Range Interpretation Comments Chloride Lvl (test code = Chloride Lvl) 107 95-109 [facility] CenterJzqfjteQZKYPSKQJ3380-48-52 15:07:00 Test Item Value Reference Range Interpretation Comments CO2 (test code = CO2) 22 24-32 [facility] CenterZtvajcoHOHNXAFAC4414-37-78 15:07:00 Test Item Value Reference Range Interpretation Comments Calcium Lvl (test code = Calcium Lvl) 7.9 8.5-10.5 [facility] CenterEjkfpodYHMVZNXPX2188-02-93 15:07:00 Test Item Value Reference Range Interpretation Comments AGAP (test code = AGAP) 12.9 10.0-20.0 [facility] CenterZvcvpjdIEPGKZJQD1295-72-78 15:07:00 Test Item Value Reference Range Interpretation Comments eGFR (test code = eGFR) 13 [facility] CenterApljqlzSQQOQCSZSF6284-80-41 15:07:00 Test Item Value Reference Range Interpretation Comments WBC (test code = WBC) 9.5 3.7-10.4 [facility] CenterQenfioePDJPMANJTW6774-63-39 15:07:00 Test Item Value Reference Range Interpretation Comments RBC (test code = RBC) 4.26 4.70-6.10 [place] 911253-03-30 15:07:00 Test Item Value Reference Range Interpretation Comments Hgb (test code = Hgb) 13.1 14.0-18.0 [place] [address]-03-30 15:07:00 Test Item Value Reference Range Interpretation Comments Hct (test code = Hct) 40.8 42.0-54.0 [place] 911253-03-30 15:07:00 Test Item Value Reference Range Interpretation Comments MCV (test code = MCV) 95.6 80.0-94.0 [facility] CenterAaafqqcESWWKAPDIH7605-24-97 15:07:00 Test Item Value Reference Range Interpretation Comments MCH (test code = MCH) 30.7 pg 27.0-31.0 [facility] CenterOfithwnVFTRVDYCOO2290-75-54 15:07:00 Test Item Value Reference Range Interpretation Comments MCHC (test code = MCHC) 32.1 32.0-36.0 [facility] CenterXrvnaysMLRIKSRXSS6993-32-00 15:07:00 Test Item Value Reference Range Interpretation Comments RDW (test code = RDW) 15.3 11.5-14.5 [place] 911253-03-30 15:07:00 Test Item Value Reference Range Interpretation Comments Platelet (test code = Platelet) 213 133-450 [place] 911253-03-30 15:07:00 Test Item Value Reference Range Interpretation Comments MPV (test code = MPV) 8.8 7.4-10.4 [place] 911253-03-30 15:07:00 Test Item Value Reference Range Interpretation Comments PT (test code = PT) 14.6 s 12.0-14.7 [place] [address]-03-30 15:07:00 Test Item Value Reference Range Interpretation Comments INR (test code = INR) 1.14 1 0.85-1.17 [facility] CenterCxelgjlOLDJVXZYRD7213-89-52 15:07:00 Test Item Value Reference Range Interpretation Comments PTT (test code = PTT) 33.9 s 22.9-35.8 [place] 911253-03-30 15:07:00 Test Item Value Reference Range Interpretation Comments Neutrophils # (test code = Neutrophils 8.1 1.5-8.1 #) [facility] CenterZssaywyFWZFCDPJAL3851-26-25 15:07:00 Test Item Value Reference Range Interpretation Comments Lymphocytes # (test code = Lymphocytes 0.7 1.0-5.5 #) [place] 911253-03-30 15:07:00 Test Item Value Reference Range Interpretation Comments Monocytes # (test code 0.8 See_Comment [Aut omated message] The = Monocytes #) system which generated this result tra nsmitted reference range : <=0.8. The reference r taye was not used to int erpret this result as normal/abnormal . [facility] CenterLwbbuecJUMAIKIUNH3443-65-68 15:07:00 Test Item Value Reference Range Interpretation Comments Segs (test code = Segs) 85.0 45.0-75.0 [facility] CenterZvuproeJASBLBSRXD9560-41-68 15:07:00 Test Item Value Reference Range Interpretation Comments Bands (test code = 0.0 See_Comment [Automat ed message] The Bands) system which ge nerated this result transmit flor reference range : <=11.0. The reference r taye was not used to interpr et this result as salomón l/abnormal. [facility] CenterHqtmbybGHWJCLOVMU9919-92-23 15:07:00 Test Item Value Reference Range Interpretation Comments Lymphocytes (test code = Lymphocytes) 7.0 20.0-40.0 [facility] CenterKhggexsCBSHUEAMPQ0653-79-19 15:07:00 Test Item Value Reference Range Interpretation Comments Monocytes (test code = Monocytes) 8.0 2.0-12.0 [facility] CenterSzybgnpGXWHCLPYLC2210-92-27 15:07:00 Test Item Value Reference Range Interpretation Comments Atypical Lymphs (test code = Atypical 0.0 Lymphs) [facility] CenterIqpofoiBWMNOZAHDH8285-66-25 15:07:00 Test Item Value Reference Range Interpretation Comments RBC Morph (test code = Normal (12/02/22 10:07 RBC Morph) AM) [facility] CenterIxjsrusNVPWBWXVIX8825-07-89 15:07:00 Test Item Value Reference Range Interpretation Comments Plt Morph (test code = Normal (12/02/22 10:07 Plt Morph) AM) [facility] UQWVKDO2212-88-83 15:07:00 Test Item Value Reference Range Interpretation Comments ABO/Rh (test code = ABO/Rh) O POS [facility] MYBOISM4835-68-92 15:07:00 Test Item Value Reference Range Interpretation Comments Antibody Scrn (test Negative (12/02/22 code = Antibody Scrn) 10:07 AM) [facility] CenterKsdqxayCQNCLADHK9932-66-71 15:07:00 Test Item Value Reference Range Interpretation Comments Glucose Lvl (test code = Glucose Lvl) 162 70-99 [facility] CenterMvrnyopMKYLBBGIS7276-95-90 15:07:00 Test Item Value Reference Range Interpretation Comments BUN (test code = BUN) 101 7-22 [facility] CenterQcngqgsEYGLSOYKG8691-91-92 15:07:00 Test Item Value Reference Range Interpretation Comments Creatinine Lvl (test code = Creatinine 4.74 0.50-1.40 Lvl) [facility] CenterMmsqfhaDJCMVYVWR8245-99-15 15:07:00 Test Item Value Reference Range Interpretation Comments Sodium Lvl (test code = Sodium Lvl) 137 135-145 [facility] CenterLnpwvjtSTMLASHSA8739-32-76 15:07:00 Test Item Value Reference Range Interpretation Comments Potassium Lvl (test code = Potassium 4.9 3.5-5.1 Lvl) [facility] CenterUicoqmhIYWNBKNBI0033-32-95 15:07:00 Test Item Value Reference Range Interpretation Comments Chloride Lvl (test code = Chloride Lvl) 107 95-109 [facility] CenterEbacmhmQMJFUROWR4595-89-13 15:07:00 Test Item Value Reference Range Interpretation Comments CO2 (test code = CO2) 22 24-32 [facility] CenterLzfztycLBJRCRFCR1330-99-50 15:07:00 Test Item Value Reference Range Interpretation Comments Calcium Lvl (test code = Calcium Lvl) 7.9 8.5-10.5 [facility] CenterVwlyjigNOKDJZDQT1654-26-32 15:07:00 Test Item Value Reference Range Interpretation Comments AGAP (test code = AGAP) 12.9 10.0-20.0 [facility] CenterIltpoyzSIWUYFPLY8974-70-66 15:07:00 Test Item Value Reference Range Interpretation Comments eGFR (test code = eGFR) 13 [facility] CenterXwpvxrvWAUAFRCKBG7565-22-46 15:07:00 Test Item Value Reference Range Interpretation Comments WBC (test code = WBC) 9.5 3.7-10.4 [facility] CenterKzrjqspFUTDMEOEAW2189-45-69 15:07:00 Test Item Value Reference Range Interpretation Comments RBC (test code = RBC) 4.26 4.70-6.10 [facility] CenterYrnvfdpFGCLKCOOAN9208-76-96 15:07:00 Test Item Value Reference Range Interpretation Comments Hgb (test code = Hgb) 13.1 14.0-18.0 [place] [address]-03-30 15:07:00 Test Item Value Reference Range Interpretation Comments Hct (test code = Hct) 40.8 42.0-54.0 [place] 911253-03-30 15:07:00 Test Item Value Reference Range Interpretation Comments MCV (test code = MCV) 95.6 80.0-94.0 [facility] CenterRekcpmnLGICJNUJDK7701-29-99 15:07:00 Test Item Value Reference Range Interpretation Comments MCH (test code = MCH) 30.7 pg 27.0-31.0 [place] 911253-03-30 15:07:00 Test Item Value Reference Range Interpretation Comments MCHC (test code = MCHC) 32.1 32.0-36.0 [place] [address]-03-30 15:07:00 Test Item Value Reference Range Interpretation Comments RDW (test code = RDW) 15.3 11.5-14.5 [place] 911253-03-30 15:07:00 Test Item Value Reference Range Interpretation Comments Platelet (test code = Platelet) 213 133-450 [place] 911253-03-30 15:07:00 Test Item Value Reference Range Interpretation Comments MPV (test code = MPV) 8.8 7.4-10.4 [place] [address]-03-30 15:07:00 Test Item Value Reference Range Interpretation Comments PT (test code = PT) 14.6 s 12.0-14.7 [place] [address]-03-30 15:07:00 Test Item Value Reference Range Interpretation Comments INR (test code = INR) 1.14 1 0.85-1.17 [place] [address]-03-30 15:07:00 Test Item Value Reference Range Interpretation Comments PTT (test code = PTT) 33.9 s 22.9-35.8 [place] [address]-03-30 15:07:00 Test Item Value Reference Range Interpretation Comments Neutrophils # (test code = Neutrophils 8.1 1.5-8.1 #) [place] 911253-03-30 15:07:00 Test Item Value Reference Range Interpretation Comments Lymphocytes # (test code = Lymphocytes 0.7 1.0-5.5 #) [place] [address]-03-30 15:07:00 Test Item Value Reference Range Interpretation Comments Monocytes # (test code 0.8 See_Comment [Aut omated message] The = Monocytes #) system which generated this result tra nsmitted reference range : <=0.8. The reference r taye was not used to int erpret this result as normal/abnormal . [place] 911253-03-30 15:07:00 Test Item Value Reference Range Interpretation Comments Segs (test code = Segs) 85.0 45.0-75.0 [facility]HnucfchMMWLAHBJHM7515-79-62 15:07:00 Test Item Value Reference Range Interpretation Comments Bands (test code = 0.0 See_Comment [Automat ed message] The Bands) system which ge nerated this result transmit flor reference range : <=11.0. The reference r taye was not used to interpr et this result as salomón l/abnormal. [facility]ExaafsjYYJGDSPJRX5296-33-62 15:07:00 Test Item Value Reference Range Interpretation Comments Lymphocytes (test code = Lymphocytes) 7.0 20.0-40.0 [facility] CenterBhbddvnTIBMKRAMNU1763-54-51 15:07:00 Test Item Value Reference Range Interpretation Comments Monocytes (test code = Monocytes) 8.0 2.0-12.0 [facility] CenterMkmwuxpWTJEMUBPQB9719-21-63 15:07:00 Test Item Value Reference Range Interpretation Comments Atypical Lymphs (test code = Atypical 0.0 Lymphs) [facility] HospitalFwqgzwcYNQBYVJQJF6961-53-48 15:07:00 Test Item Value Reference Range Interpretation Comments RBC Morph (test code = Normal (12/02/22 10:07 RBC Morph) AM) [facility] CenterWldtqwgGPBZYXUPBX8545-79-62 15:07:00 Test Item Value Reference Range Interpretation Comments Plt Morph (test code = Normal (12/02/22 10:07 Plt Morph) AM) [facility] HospitalConversation Media PPJWJZW9747-00-45 15:07:00 Test Item Value Reference Range Interpretation Comments ABO/Rh (test code = ABO/Rh) O [facility] [id number] 15:07:00 Test Item Value Reference Range Interpretation Comments Antibody Scrn (test Negative (12/02/22 code = Antibody Scrn) 10:07 AM) [facility] HospitalEruyuhwRSSWOYCQT4574-46-33 15:07:00 Test Item Value Reference Range Interpretation Comments Glucose Lvl (test code = Glucose Lvl) 162 70-99 [facility]HtkspwxRTNVZPEDH6056-57-08 15:07:00 Test Item Value Reference Range Interpretation Comments BUN (test code = BUN) 101 7-22 [facility] HospitalBdaqfzfRZIAWUMPJ2069-66-44 15:07:00 Test Item Value Reference Range Interpretation Comments Creatinine Lvl (test code = Creatinine 4.74 0.50-1.40 Lvl) [facility] CenterHmpcjukNEFLIIRWF5222-11-74 15:07:00 Test Item Value Reference Range Interpretation Comments Sodium Lvl (test code = Sodium Lvl) 137 135-145 [place] 635833-03-30 15:07:00 Test Item Value Reference Range Interpretation Comments Potassium Lvl (test code = Potassium 4.9 3.5-5.1 Lvl) [facility] CenterTqulbtkPENAPAHUF7825-15-84 15:07:00 Test Item Value Reference Range Interpretation Comments Chloride Lvl (test code = Chloride Lvl) 107 95-109 [place] [address]-03-30 15:07:00 Test Item Value Reference Range Interpretation Comments CO2 (test code = CO2) 22 24-32 [place] 635833-03-30 15:07:00 Test Item Value Reference Range Interpretation Comments Calcium Lvl (test code = Calcium Lvl) 7.9 8.5-10.5 [place] 635833-03-30 15:07:00 Test Item Value Reference Range Interpretation Comments AGAP (test code = AGAP) 12.9 10.0-20.0 [facility] CenterWdnmxfhJQUPWELNN6557-14-81 15:07:00 Test Item Value Reference Range Interpretation Comments eGFR (test code = eGFR) 13 [facility] CenterHzqjrvgUFZXORSIZN7911-89-66 15:07:00 Test Item Value Reference Range Interpretation Comments WBC (test code = WBC) 9.5 3.7-10.4 [place] 911253-03-30 15:07:00 Test Item Value Reference Range Interpretation Comments RBC (test code = RBC) 4.26 4.70-6.10 [place] [address]-03-30 15:07:00 Test Item Value Reference Range Interpretation Comments Hgb (test code = Hgb) 13.1 14.0-18.0 [place] [address]-03-30 15:07:00 Test Item Value Reference Range Interpretation Comments Hct (test code = Hct) 40.8 42.0-54.0 [place] 911253-03-30 15:07:00 Test Item Value Reference Range Interpretation Comments MCV (test code = MCV) 95.6 80.0-94.0 [place] 911253-03-30 15:07:00 Test Item Value Reference Range Interpretation Comments MCH (test code = MCH) 30.7 pg 27.0-31.0 [place] 911253-03-30 15:07:00 Test Item Value Reference Range Interpretation Comments MCHC (test code = MCHC) 32.1 32.0-36.0 [facility] CenterTptbnjxOFTPBRBQBC3041-53-00 15:07:00 Test Item Value Reference Range Interpretation Comments RDW (test code = RDW) 15.3 11.5-14.5 [place] 911253-03-30 15:07:00 Test Item Value Reference Range Interpretation Comments Platelet (test code = Platelet) 213 133-450 [place] 911253-03-30 15:07:00 Test Item Value Reference Range Interpretation Comments MPV (test code = MPV) 8.8 7.4-10.4 [place] [address]-03-30 15:07:00 Test Item Value Reference Range Interpretation Comments PT (test code = PT) 14.6 s 12.0-14.7 [place] [address]-03-30 15:07:00 Test Item Value Reference Range Interpretation Comments INR (test code = INR) 1.14 1 0.85-1.17 [place] [address]-03-30 15:07:00 Test Item Value Reference Range Interpretation Comments PTT (test code = PTT) 33.9 s 22.9-35.8 [place] 911253-03-30 15:07:00 Test Item Value Reference Range Interpretation Comments Neutrophils # (test code = Neutrophils 8.1 1.5-8.1 #) [place] 911253-03-30 15:07:00 Test Item Value Reference Range Interpretation Comments Lymphocytes # (test code = Lymphocytes 0.7 1.0-5.5 #) [place] 911253-03-30 15:07:00 Test Item Value Reference Range Interpretation Comments Monocytes # (test code 0.8 See_Comment [Aut omated message] The = Monocytes #) system which generated this result tra nsmitted reference range : <=0.8. The reference r taye was not used to int erpret this result as normal/abnormal . [place] [address]-03-30 15:07:00 Test Item Value Reference Range Interpretation Comments Segs (test code = Segs) 85.0 45.0-75.0 [facility] CenterMifurlrOTZEIBMTAW2240-95-46 15:07:00 Test Item Value Reference Range Interpretation Comments Bands (test code = 0.0 See_Comment [Automat ed message] The Bands) system which ge nerated this result transmit flor reference range : <=11.0. The reference r taye was not used to interpr et this result as salomón l/abnormal. [facility] HospitalEspkhuuJOAUHXCTZB7106-62-74 15:07:00 Test Item Value Reference Range Interpretation Comments Lymphocytes (test code = Lymphocytes) 7.0 20.0-40.0 [facility] CenterQtckkxhPBZJRVRZTO8827-90-24 15:07:00 Test Item Value Reference Range Interpretation Comments Monocytes (test code = Monocytes) 8.0 2.0-12.0 [facility] CenterPyevqcuIHUBTWIAVJ9345-89-24 15:07:00 Test Item Value Reference Range Interpretation Comments Atypical Lymphs (test code = Atypical 0.0 Lymphs) [facility] HospitalHlgtqstAKCTOPEPAV2010-88-36 15:07:00 Test Item Value Reference Range Interpretation Comments RBC Morph (test code = Normal (12/02/22 10:07 RBC Morph) AM) [facility]DhhdhgeQUBSCEVILT0272-22-28 15:07:00 Test Item Value Reference Range Interpretation Comments Plt Morph (test code = Normal (12/02/22 10:07 Plt Morph) AM) [facility] RFKNNBK8357-05-95 15:07:00 Test Item Value Reference Range Interpretation Comments ABO/Rh (test code = ABO/Rh) O POS [facility] [id number] 15:07:00 Test Item Value Reference Range Interpretation Comments Antibody Scrn (test Negative (12/02/22 code = Antibody Scrn) 10:07 AM) [facility] HospitalAsokthnXNSRLCXVH1900-66-41 15:07:00 Test Item Value Reference Range Interpretation Comments Glucose Lvl (test code = Glucose Lvl) 162 70-99 [facility] CenterHnqttobPUDYUHJHA7417-94-43 15:07:00 Test Item Value Reference Range Interpretation Comments BUN (test code = BUN) 101 7-22 [facility] CenterYxwkyspQBTIBMJYQ7595-06-15 15:07:00 Test Item Value Reference Range Interpretation Comments Creatinine Lvl (test code = Creatinine 4.74 0.50-1.40 Lvl) [facility] CenterWjfrmehIUKZRBUNG6394-99-84 15:07:00 Test Item Value Reference Range Interpretation Comments Sodium Lvl (test code = Sodium Lvl) 137 135-145 [facility] CenterZdpnycpTUFSTFFLS5954-47-82 15:07:00 Test Item Value Reference Range Interpretation Comments Potassium Lvl (test code = Potassium 4.9 3.5-5.1 Lvl) [facility] CenterGdwnjnqQJJZIFVXZ4772-30-69 15:07:00 Test Item Value Reference Range Interpretation Comments Chloride Lvl (test code = Chloride Lvl) 107 95-109 [facility] CenterBbeszhkOYSEJJCKH8692-11-11 15:07:00 Test Item Value Reference Range Interpretation Comments CO2 (test code = CO2) 22 24-32 [place] 635833-03-30 15:07:00 Test Item Value Reference Range Interpretation Comments Calcium Lvl (test code = Calcium Lvl) 7.9 8.5-10.5 [place] 635833-03-30 15:07:00 Test Item Value Reference Range Interpretation Comments AGAP (test code = AGAP) 12.9 10.0-20.0 [facility] CenterLcmxyckXHNYZQLVS8111-19-66 15:07:00 Test Item Value Reference Range Interpretation Comments eGFR (test code = eGFR) 13 [facility] CenterAfwbymjAKINIALTVO5195-37-21 15:07:00 Test Item Value Reference Range Interpretation Comments WBC (test code = WBC) 9.5 3.7-10.4 [place] 911253-03-30 15:07:00 Test Item Value Reference Range Interpretation Comments RBC (test code = RBC) 4.26 4.70-6.10 [place] [address]-03-30 15:07:00 Test Item Value Reference Range Interpretation Comments Hgb (test code = Hgb) 13.1 14.0-18.0 [place] [address]-03-30 15:07:00 Test Item Value Reference Range Interpretation Comments Hct (test code = Hct) 40.8 42.0-54.0 [place] [address]-03-30 15:07:00 Test Item Value Reference Range Interpretation Comments MCV (test code = MCV) 95.6 80.0-94.0 [place] 911253-03-30 15:07:00 Test Item Value Reference Range Interpretation Comments MCH (test code = MCH) 30.7 pg 27.0-31.0 [place] 911253-03-30 15:07:00 Test Item Value Reference Range Interpretation Comments MCHC (test code = MCHC) 32.1 32.0-36.0 [facility] CenterXjyzqydGTMGSGHXCH5765-35-17 15:07:00 Test Item Value Reference Range Interpretation Comments RDW (test code = RDW) 15.3 11.5-14.5 [place] 911253-03-30 15:07:00 Test Item Value Reference Range Interpretation Comments Platelet (test code = Platelet) 213 133-450 [place] 911253-03-30 15:07:00 Test Item Value Reference Range Interpretation Comments MPV (test code = MPV) 8.8 7.4-10.4 [place] [address]-03-30 15:07:00 Test Item Value Reference Range Interpretation Comments PT (test code = PT) 14.6 s 12.0-14.7 [place] 911253-03-30 15:07:00 Test Item Value Reference Range Interpretation Comments INR (test code = INR) 1.14 1 0.85-1.17 [place] 911253-03-30 15:07:00 Test Item Value Reference Range Interpretation Comments PTT (test code = PTT) 33.9 s 22.9-35.8 [place] 911253-03-30 15:07:00 Test Item Value Reference Range Interpretation Comments Neutrophils # (test code = Neutrophils 8.1 1.5-8.1 #) [place] 911253-03-30 15:07:00 Test Item Value Reference Range Interpretation Comments Lymphocytes # (test code = Lymphocytes 0.7 1.0-5.5 #) [place] 911253-03-30 15:07:00 Test Item Value Reference Range Interpretation Comments Monocytes # (test code 0.8 See_Comment [Aut omated message] The = Monocytes #) system which generated this result tra nsmitted reference range : <=0.8. The reference r taye was not used to int erpret this result as normal/abnormal . [facility] CenterLszghtpYEZOWFMNLL2683-50-12 15:07:00 Test Item Value Reference Range Interpretation Comments Segs (test code = Segs) 85.0 45.0-75.0 [place] 911253-03-30 15:07:00 Test Item Value Reference Range Interpretation Comments Bands (test code = 0.0 See_Comment [Automat ed message] The Bands) system which ge nerated this result transmit flor reference range : <=11.0. The reference r taye was not used to interpr et this result as salomón l/abnormal. [facility] CenterEmkavriAVKXPYTOII5600-36-25 15:07:00 Test Item Value Reference Range Interpretation Comments Lymphocytes (test code = Lymphocytes) 7.0 20.0-40.0 [facility] CenterPgnmapgNRULIZENPZ2859-20-90 15:07:00 Test Item Value Reference Range Interpretation Comments Monocytes (test code = Monocytes) 8.0 2.0-12.0 [facility] CenterEqfkasxJAOLKSZXFJ1032-33-48 15:07:00 Test Item Value Reference Range Interpretation Comments Atypical Lymphs (test code = Atypical 0.0 Lymphs) [facility] CenterZdpyezcIHJLVTTRYA3996-93-28 15:07:00 Test Item Value Reference Range Interpretation Comments RBC Morph (test code = Normal (12/02/22 10:07 RBC Morph) AM) [facility] CenterZqzwcwzQMUUZOPEVR4775-63-32 15:07:00 Test Item Value Reference Range Interpretation Comments Plt Morph (test code = Normal (12/02/22 10:07 Plt Morph) AM) [facility] MMVQSSM0304-90-80 15:07:00 Test Item Value Reference Range Interpretation Comments ABO/Rh (test code = ABO/Rh) O POS [facility] KLEAOCP5381-99-89 15:07:00 Test Item Value Reference Range Interpretation Comments Antibody Scrn (test Negative (12/02/22 code = Antibody Scrn) 10:07 AM) [facility] CenterRzoxmzcCJNOCAWVG0848-55-16 15:07:00 Test Item Value Reference Range Interpretation Comments Glucose Lvl (test code = Glucose Lvl) 162 70-99 [facility] CenterDccynhxJTXLNLNMV0818-30-68 15:07:00 Test Item Value Reference Range Interpretation Comments BUN (test code = BUN) 101 7-22 [facility] CenterBhrtvktVZJVCFNAL1964-68-13 15:07:00 Test Item Value Reference Range Interpretation Comments Creatinine Lvl (test code = Creatinine 4.74 0.50-1.40 Lvl) [facility] CenterLtchexvXOOOAIMXT7555-49-95 15:07:00 Test Item Value Reference Range Interpretation Comments Sodium Lvl (test code = Sodium Lvl) 137 135-145 [facility] CenterFrxgqjgZVDSDLKMC0635-67-58 15:07:00 Test Item Value Reference Range Interpretation Comments Potassium Lvl (test code = Potassium 4.9 3.5-5.1 Lvl) [facility] CenterDtzbvozJYXNUWKPK9329-57-90 15:07:00 Test Item Value Reference Range Interpretation Comments Chloride Lvl (test code = Chloride Lvl) 107 95-109 [place] 635833-03-30 15:07:00 Test Item Value Reference Range Interpretation Comments CO2 (test code = CO2) 22 24-32 [place] 635833-03-30 15:07:00 Test Item Value Reference Range Interpretation Comments Calcium Lvl (test code = Calcium Lvl) 7.9 8.5-10.5 [place] 635833-03-30 15:07:00 Test Item Value Reference Range Interpretation Comments AGAP (test code = AGAP) 12.9 10.0-20.0 [place] [address]-03-30 15:07:00 Test Item Value Reference Range Interpretation Comments eGFR (test code = eGFR) 13 [facility] CenterOijxnzmBTMNYWELPO5302-42-97 15:07:00 Test Item Value Reference Range Interpretation Comments WBC (test code = WBC) 9.5 3.7-10.4 [facility] CenterOizxvpyRAZVPMYXHU4541-16-98 15:07:00 Test Item Value Reference Range Interpretation Comments RBC (test code = RBC) 4.26 4.70-6.10 [place] [address]-03-30 15:07:00 Test Item Value Reference Range Interpretation Comments Hgb (test code = Hgb) 13.1 14.0-18.0 [place] [address]-03-30 15:07:00 Test Item Value Reference Range Interpretation Comments Hct (test code = Hct) 40.8 42.0-54.0 [place] [address]-03-30 15:07:00 Test Item Value Reference Range Interpretation Comments MCV (test code = MCV) 95.6 80.0-94.0 [place] [address]-03-30 15:07:00 Test Item Value Reference Range Interpretation Comments MCH (test code = MCH) 30.7 pg 27.0-31.0 [place] [address]-03-30 15:07:00 Test Item Value Reference Range Interpretation Comments MCHC (test code = MCHC) 32.1 32.0-36.0 [place] [address]-03-30 15:07:00 Test Item Value Reference Range Interpretation Comments RDW (test code = RDW) 15.3 11.5-14.5 [place] [address]-03-30 15:07:00 Test Item Value Reference Range Interpretation Comments Platelet (test code = Platelet) 213 133-450 [place] [address]-03-30 15:07:00 Test Item Value Reference Range Interpretation Comments MPV (test code = MPV) 8.8 7.4-10.4 [place] [address]-03-30 15:07:00 Test Item Value Reference Range Interpretation Comments PT (test code = PT) 14.6 s 12.0-14.7 [place] [address]-03-30 15:07:00 Test Item Value Reference Range Interpretation Comments INR (test code = INR) 1.14 1 0.85-1.17 [place] [address]-03-30 15:07:00 Test Item Value Reference Range Interpretation Comments PTT (test code = PTT) 33.9 s 22.9-35.8 [place] [address]-03-30 15:07:00 Test Item Value Reference Range Interpretation Comments Neutrophils # (test code = Neutrophils 8.1 1.5-8.1 #) [place] 911253-03-30 15:07:00 Test Item Value Reference Range Interpretation Comments Lymphocytes # (test code = Lymphocytes 0.7 1.0-5.5 #) [place] [address]-03-30 15:07:00 Test Item Value Reference Range Interpretation Comments Monocytes # (test code 0.8 See_Comment [Aut omated message] The = Monocytes #) system which generated this result tra nsmitted reference range : <=0.8. The reference r taye was not used to int erpret this result as normal/abnormal . [place] [address]-03-30 15:07:00 Test Item Value Reference Range Interpretation Comments Segs (test code = Segs) 85.0 45.0-75.0 [place] [address]-03-30 15:07:00 Test Item Value Reference Range Interpretation Comments Bands (test code = 0.0 See_Comment [Automat ed message] The Bands) system which ge nerated this result transmit flor reference range : <=11.0. The reference r taye was not used to interpr et this result as salomón l/abnormal. [facility] CenterWymfywxGDYNVIYYJT2059-85-06 15:07:00 Test Item Value Reference Range Interpretation Comments Lymphocytes (test code = Lymphocytes) 7.0 20.0-40.0 [facility] CenterUvswejcATYEWAARLG9480-97-50 15:07:00 Test Item Value Reference Range Interpretation Comments Monocytes (test code = Monocytes) 8.0 2.0-12.0 [facility] CenterUjnubjlFVYBXLCQYA4902-89-35 15:07:00 Test Item Value Reference Range Interpretation Comments Atypical Lymphs (test code = Atypical 0.0 Lymphs) [facility] CenterGdkcotbRLXRLLTXGT1699-96-34 15:07:00 Test Item Value Reference Range Interpretation Comments RBC Morph (test code = Normal (12/02/22 10:07 RBC Morph) AM) [facility] CenterBxpulhuMYXNFSAXYE9957-98-15 15:07:00 Test Item Value Reference Range Interpretation Comments Plt Morph (test code = Normal (12/02/22 10:07 Plt Morph) AM) [facility] YNVGKFF2706-34-94 15:07:00 Test Item Value Reference Range Interpretation Comments ABO/Rh (test code = ABO/Rh) O POS [facility] ABTJOZE7825-63-72 15:07:00 Test Item Value Reference Range Interpretation Comments Antibody Scrn (test Negative (12/02/22 code = Antibody Scrn) 10:07 AM) [facility] CenterOtyuajoCXHKTMQKI5884-39-76 15:07:00 Test Item Value Reference Range Interpretation Comments Glucose Lvl (test code = Glucose Lvl) 162 70-99 [facility] CenterHpnruvbTFSNZJJUJ5833-99-62 15:07:00 Test Item Value Reference Range Interpretation Comments BUN (test code = BUN) 101 7-22 [facility] CenterQnnffxeFCPZOSILK6113-04-80 15:07:00 Test Item Value Reference Range Interpretation Comments Creatinine Lvl (test code = Creatinine 4.74 0.50-1.40 Lvl) [facility] CenterKhrznudKJTVCAYHY5708-98-91 15:07:00 Test Item Value Reference Range Interpretation Comments Sodium Lvl (test code = Sodium Lvl) 137 135-145 [facility] CenterUkkfrpbABCLELLYC0273-02-52 15:07:00 Test Item Value Reference Range Interpretation Comments Potassium Lvl (test code = Potassium 4.9 3.5-5.1 Lvl) [facility] CenterJcqlshvWPYUVRBNN8533-41-08 15:07:00 Test Item Value Reference Range Interpretation Comments Chloride Lvl (test code = Chloride Lvl) 107 95-109 [facility] CenterXwrkfxbWHPXSETLP8002-71-33 15:07:00 Test Item Value Reference Range Interpretation Comments CO2 (test code = CO2) 22 24-32 [facility] CenterJfpxptmZECGUGNDC3773-52-52 15:07:00 Test Item Value Reference Range Interpretation Comments Calcium Lvl (test code = Calcium Lvl) 7.9 8.5-10.5 [facility] CenterTargdrrTQSQIPCSP7829-16-28 15:07:00 Test Item Value Reference Range Interpretation Comments AGAP (test code = AGAP) 12.9 10.0-20.0 [facility] CenterWgnlrqcDUMQLQWCL7972-07-71 15:07:00 Test Item Value Reference Range Interpretation Comments eGFR (test code = eGFR) 13 [facility] CenterFnccnkeEPCWSSLXFR4288-88-84 15:07:00 Test Item Value Reference Range Interpretation Comments WBC (test code = WBC) 9.5 3.7-10.4 [facility] CenterImvsgypXYEAAFXWPO1390-39-92 15:07:00 Test Item Value Reference Range Interpretation Comments RBC (test code = RBC) 4.26 4.70-6.10 [facility] CenterPudvgbrBYBTSXBBPX1231-74-47 15:07:00 Test Item Value Reference Range Interpretation Comments Hgb (test code = Hgb) 13.1 14.0-18.0 [place] 911253-03-30 15:07:00 Test Item Value Reference Range Interpretation Comments Hct (test code = Hct) 40.8 42.0-54.0 [place] 911253-03-30 15:07:00 Test Item Value Reference Range Interpretation Comments MCV (test code = MCV) 95.6 80.0-94.0 [place] 911253-03-30 15:07:00 Test Item Value Reference Range Interpretation Comments MCH (test code = MCH) 30.7 pg 27.0-31.0 [place] [address]-03-30 15:07:00 Test Item Value Reference Range Interpretation Comments MCHC (test code = MCHC) 32.1 32.0-36.0 [facility] CenterOvwzdfiXPVSBPWQCG2160-09-51 15:07:00 Test Item Value Reference Range Interpretation Comments RDW (test code = RDW) 15.3 11.5-14.5 [facility] CenterXeinxysKTOPAWAJUC4330-02-70 15:07:00 Test Item Value Reference Range Interpretation Comments Platelet (test code = Platelet) 213 133-450 [facility] CenterPxzxvouAPEJMPPAIK2523-37-35 15:07:00 Test Item Value Reference Range Interpretation Comments MPV (test code = MPV) 8.8 7.4-10.4 [facility] CenterIqjgxifEREIFZRFKF9859-57-38 15:07:00 Test Item Value Reference Range Interpretation Comments PT (test code = PT) 14.6 s 12.0-14.7 [facility] WITH OFJL7109-61-51 15:39:02 Test Item Value Reference Range Interpretation Comments WBC (test code = 8.55 See_Comment [Automated 6690-2) message] The sy stem which generated this result transmitted reference range : 4.20 - 10.70 10*3/?L. The reference range was not used to interpret this result as normal/abnormal . RBC (test code = 3.25 See_Comment L [Automated 879-8) message] The sy stem which generated this result transmitted reference range : 4.26 - 5.52 10*6/?L. The reference range was not used to interpret this result as normal/abnormal . HGB (test code = 10.0 g/dL 12.2-16.4 L 718-7) HCT (test code = 31.1 % 38.4-49.3 L 4544-3) MCV (test code = 95.7 fL 81.7-95.6 H 787-2) MCH (test code = 30.8 pg 26.1-32.7 785-6) MCHC (test code = 32.2 g/dL 31.2-35.0 786-4) RDW-SD (test code = 46.9 fL 38.5-51.6 71904-7) RDW-CV (test code = 13.5 % 12.1-15.4 788-0) PLT (test code = 254 See_Comment [Automated 777-3) message] The sy stem which generated this result transmitted reference range : 150 - 328 10*3/ ?L. The reference r taye was not used to interpret this result as normal/abnormal . MPV (test code = 11.6 fL 9.8-13.0 19173-1) NRBC/100 WBC (test 0.0 See_Comment [Automat ed code = 6488435305) message] The system which generated this result transmitted reference range : 0.0 - 10.0 /100 WBCs. The refer ence range was not u sed to interpret th is result as normal/abnormal . NRBC x10^3 (test code See_Comment [Auto mated = 6562788681) message] The s ystem which generated this result transmitted reference range : 10*3/?L. The reference range was not used to interpret this result as normal/abnormal . GRAN MAT (NEUT) % 73.2 % (test code = 770-8) IMM GRAN % (test code 0.40 % = 9063748868) LYMPH % (test code = 12.4 % 736-9) MONO % (test code = 8.0 % 5905-5) EOS % (test code = 5.5 % 713-8) BASO % (test code = 0.5 % 706-2) GRAN MAT x10^3(ANC) 6.27 10*3/uL 1.99-6.95 (test code = 7287462158) IMM GRAN x10^3 (test 0.03 10*3/uL 0.00-0.06 code = 2641042053) LYMPH x10^3 (test code 1.06 10*3/uL 1.09-3.23 L = 731-0) MONO x10^3 (test code 0.68 10*3/uL 0.36-1.02 = 742-7) EOS x10^3 (test code = 0.47 10*3/uL 0.06-0.53 711-2) BASO x10^3 (test code 0.04 10*3/uL 0.01-0.09 = 704-7) Lab Interpretation Abnormal (test code = 08597-9) [facility] GLUCOSE (AUTOMATED)2022-09-25 23:40:10 Test Item Value Reference Range Interpretation Comments POCT GLU (test code = 3168550425) 119 mg/dL 70-110 H Lab Interpretation (test code = Abnormal 00377-9) [facility] GLUCOSE (AUTOMATED)2022-09-25 18:04:49 Test Item Value Reference Range Interpretation Comments POCT GLU (test code = 4719717468) 125 mg/dL 70-110 H Lab Interpretation (test code = Abnormal 18979-3) [id number] 16:13:40 Test Item Value Reference Interpretation Comments Range TROPONIN I (test 0.011 ng/mL See_Comment [Automated code = 8390412159) message] The system which generated this result transmitted reference range : <=0.034. The reference range was not used to interpret this result as normal/abnormal . MILAD (test code = Reference (Normal) MILAD) Range (defined by the 99th percentile reference limit): <= 0.034 ng/mL Note: Cardiac troponin begins to rise 3-4 hours after the onset of ischemia. Repeat in 4-6 hours if the sample was drawn within 3-4 hours of the onset of the symptom and found normal. Diagnosis of myocardial injury is made with acute changes in cTn concentrations with at least one serial sample above the 99th percentile upper reference limit (URL), taken together with the patient's clinical presentation. Biotin has been reported to cause a negative bias, interpret results relative to patient's use of biotin. Lab Interpretation Normal (test code = 84296-1) [id number] 16:10:19 Test Item Value Reference Range Interpretation Comments NT-proBNP (test code 7660 pg/mL See_Comment H [Autom ated = 0488467308) message] The system which generated this result transmitted reference range : <=125. The reference range was not used to interpret this result as normal/abnormal . MILAD (test code = MILAD) Biotin has been reported to cause a negative bias, interpret results relative to patient's use of biotin. Lab Interpretation Abnormal (test code = 02171-8) [facility] GLUCOSE (AUTOMATED)2022-09-25 13:58:53 Test Item Value Reference Range Interpretation Comments POCT GLU (test code = 9663178640) 83 mg/dL 70-110 Lab Interpretation (test code = Normal 64038-3) [facility] 11:45:26 Test Item Value Reference Range Interpretation Comments MAGNESIUM (test code = 4162829458) 1.9 mg/dL 1.7-2.4 Lab Interpretation (test code = Normal 81885-8) [facility] (NA, K, CL, CO2, GLUCOSE, BUN, CREATININE, CA)2022-09-25 11:45:06 Test Item Value Reference Range Interpretation Comments NA (test code = 139 mmol/L 135-145 5897602186) K (test code = 4.9 mmol/L 3.5-5.0 1518446768) CL (test code = 107 mmol/L 98-108 6400674849) CO2 TOTAL (test code = 23 mmol/L 23-31 6427643305) AGAP (test code = 2-16 8160496869) BUN (test code = 69 mg/dL 7-23 H 7775172424) GLUCOSE (test code = 81 mg/dL 70-110 8594977122) CREATININE (test code = 4.60 mg/dL 0.60-1.25 H 5216090361) CALCIUM (test code = 8.3 mg/dL 8.6-10.6 L 9856185519) eGFR (test code = mL/min/1.73m2 4863115119) MILAD (test code = MILAD) Association of [...] tests). Lab Interpretation Abnormal (test code = 68541-1) [facility] 11:45:06 Test Item Value Reference Range Interpretation Comments PHOSPHORUS (test code = 2657993967) 5.0 mg/dL 2.5-5.0 Lab Interpretation (test code = Normal 89036-0) [facility] GLUCOSE (AUTOMATED)2022-09-25 02:37:38 Test Item Value Reference Range Interpretation Comments POCT GLU (test code = 3196630127) 109 mg/dL 70-110 Lab Interpretation (test code = Normal 68110-6) [facility] GLUCOSE (AUTOMATED)2022-09-24 22:34:32 Test Item Value Reference Range Interpretation Comments POCT GLU (test code = 6599763455) 107 mg/dL 70-110 Lab Interpretation (test code = Normal 82273-6) [facility] GLUCOSE (AUTOMATED)2022-09-24 22:34:27 Test Item Value Reference Range Interpretation Comments POCT GLU (test code = 9393547904) 93 mg/dL 70-110 Lab Interpretation (test code = Normal 21108-8) [facility] GLUCOSE (AUTOMATED)2022-09-24 22:34:27 Test Item Value Reference Range Interpretation Comments POCT GLU (test code = 3187472553) 102 mg/dL 70-110 Lab Interpretation (test code = Normal 23183-7) [facility] GLUCOSE (AUTOMATED)2022-09-24 10:24:54 Test Item Value Reference Range Interpretation Comments POCT GLU (test code = 1857978986) 146 mg/dL 70-110 H Lab Interpretation (test code = Abnormal 45492-2) [facility] GLUCOSE (AUTOMATED)2022-09-24 03:48:39 Test Item Value Reference Range Interpretation Comments POCT GLU (test code = 8754348277) 125 mg/dL 70-110 H Lab Interpretation (test code = Abnormal 39241-1) [facility] GLUCOSE (AUTOMATED)2022-09-23 18:24:59 Test Item Value Reference Range Interpretation Comments POCT GLU (test code = 7489565142) 139 mg/dL 70-110 H Lab Interpretation (test code = Abnormal 01222-6) [facility] GLUCOSE (AUTOMATED)2022-09-23 16:03:00 Test Item Value Reference Range Interpretation Comments POCT GLU (test code = 9031258743) 105 mg/dL 70-110 Lab Interpretation (test code = Normal 62761-2) [facility] GLUCOSE (AUTOMATED)2022-09-23 02:32:39 Test Item Value Reference Range Interpretation Comments POCT GLU (test code = 3473987263) 152 mg/dL 70-110 H Lab Interpretation (test code = Abnormal 37909-4) [facility] GLUCOSE (AUTOMATED)2022-09-22 22:39:19 Test Item Value Reference Range Interpretation Comments POCT GLU (test code = 2392059925) 157 mg/dL 70-110 H Lab Interpretation (test code = Abnormal 98038-0) [facility] Center[facility]cosylated Hemoglobin (A1C)2022-09-22 21:53:22 Test Item Value Reference Range Interpretation Comments HGB A1C (test code = 5.8 % 4.0-5.7 H 4548-4) MILAD (test code = MILAD) Reference RangesNormal: <5.7%Prediabetes: 5.7 - 6.4%Diabetes: > 6.5% Lab Interpretation (test Abnormal code = 08930-6) [facility] GLUCOSE (AUTOMATED)2022-09-22 17:35:45 Test Item Value Reference Range Interpretation Comments POCT GLU (test code = 7025947414) 164 mg/dL 70-110 H Lab Interpretation (test code = Abnormal 62209-8) [facility] GLUCOSE (AUTOMATED)2022-09-22 14:16:24 Test Item Value Reference Range Interpretation Comments POCT GLU (test code = 1107542131) 145 mg/dL 70-110 H Lab Interpretation (test code = Abnormal 44493-6) [facility]22 02:59:51 Test Item Value Reference Range Interpretation Comments POCT GLU (test code = 9153413134) 224 mg/dL 70-110 H Lab Interpretation (test code = Abnormal 28692-9) [facility] CenterPhosphorus [id number] 22:26:58 Test Item Value Reference Range Interpretation Comments PHOSPHORUS (test code = 1093196781) 6.1 mg/dL 2.5-5.0 H Lab Interpretation (test code = Abnormal 44015-3) [facility] METABOLIC PAN[facility] (68943)2022-09-21 18:00:40 Test Item Value Reference Range Interpretation Comments NA (test code = 137 mmol/L 135-145 3790643588) K (test code = 5.4 mmol/L 3.5-5.0 H 4165476355) CL (test code = 112 mmol/L 98-108 H 3110687420) CO2 TOTAL (test code = 16 mmol/L 23-31 L 5572423580) AGAP (test code = 2-16 0424759214) BUN (test code = 74 mg/dL 7-23 H 4971941219) GLUCOSE (test code = 121 mg/dL 70-110 H 7288220171) CREATININE (test code = 4.33 mg/dL 0.60-1.25 H 9930732113) TOTAL BILI (test code = 0.4 mg/dL 0.1-1.0 5459080884) CALCIUM (test code = 8.0 mg/dL 8.6-10.6 L 1478755808) T PROTEIN (test code = 5.9 g/dL 6.3-8.2 L 8111156700) ALBUMIN (test code = 3.3 g/dL 3.5-5.0 L 4891495799) ALK PHOS (test code = 63 U/L 34-122 7721096261) ALTv (test code = 13 U/L 5-50 1742-6) AST(SGOT) (test code = 14 U/L 13-40 5108553740) eGFR (test code = mL/min/1.73m2 8320033268) MILAD (test code = MILAD) Association of [...] tests). Lab Interpretation Abnormal (test code = 58473-0) [facility] WITH [id number] 17:48:17 Test Item Value Reference Range Interpretation Comments WBC (test code = See_Comment [Automated 4418-2) message] The sy stem which generated this result transmitted reference range : 4.20 - 10.70 10*3/?L. The reference range was not used to interpret this result as normal/abnormal . RBC (test code = See_Comment L [Automated 667-3) message] The sy stem which generated this result transmitted reference range : 4.26 - 5.52 10*6/?L. The reference range was not used to interpret this result as normal/abnormal . HGB (test code = 8.3 g/dL 12.2-16.4 L 718-7) HCT (test code = 25.7 % 38.4-49.3 L 4544-3) MCV (test code = 99.2 fL 81.7-95.6 H 787-2) MCH (test code = 32.0 pg 26.1-32.7 785-6) MCHC (test code = 32.3 g/dL 31.2-35.0 786-4) RDW-SD (test code = 53.9 fL 38.5-51.6 H 16064-6) RDW-CV (test code = 15.0 % 12.1-15.4 788-0) PLT (test code = See_Comment [Automated 777-3) message] The sy stem which generated this result transmitted reference range : 150 - 328 10*3/ ?L. The reference r taye was not used to interpret this result as normal/abnormal . MPV (test code = 10.6 fL 9.8-13.0 04618-9) NRBC/100 WBC (test See_Comment [Automat ed code = 8844431701) message] The system which generated this result transmitted reference range : 0.0 - 10.0 /100 WBCs. The refer ence range was not u sed to interpret th is result as normal/abnormal . NRBC x10^3 (test code See_Comment [Auto mated = 0466147828) message] The s ystem which generated this result transmitted reference range : 10*3/?L. The reference range was not used to interpret this result as normal/abnormal . GRAN MAT (NEUT) % 74.5 % (test code = 770-8) IMM GRAN % (test code 0.40 % = 5874709199) LYMPH % (test code = 13.6 % 736-9) MONO % (test code = 7.5 % 5905-5) EOS % (test code = 3.3 % 713-8) BASO % (test code = 0.7 % 706-2) GRAN MAT x10^3(ANC) 5.66 10*3/uL 1.99-6.95 (test code = 4085731919) IMM GRAN x10^3 (test 0.03 10*3/uL 0.00-0.06 code = 1364075765) LYMPH x10^3 (test code 1.03 10*3/uL 1.09-3.23 L = 731-0) MONO x10^3 (test code 0.57 10*3/uL 0.36-1.02 = 742-7) EOS x10^3 (test code = 0.25 10*3/uL 0.06-0.53 711-2) BASO x10^3 (test code 0.05 10*3/uL 0.01-0.09 = 704-7) Lab Interpretation Abnormal (test code = 83697-3) [facility] GLUCOSE (AUTOMATED)2022-07-27 16:13:43 Test Item Value Reference Range Interpretation Comments POCT GLU (test code = 6183510949) 116 mg/dL 70-110 H Lab Interpretation (test code = Abnormal 55233-0) [facility] GLUCOSE (AUTOMATED)2022-07-27 16:13:43 Test Item Value Reference Range Interpretation Comments POCT GLU (test code = 2496968636) 116 mg/dL 70-110 H Lab Interpretation (test code = Abnormal 66098-7) [facility] GLUCOSE (AUTOMATED)2022-07-20 22:48:14 Test Item Value Reference Range Interpretation Comments POCT GLU (test code = 1587936595) 151 mg/dL 70-110 H Lab Interpretation (test code = Abnormal 26785-4) [facility] GLUCOSE (AUTOMATED)2022-07-20 17:57:58 Test Item Value Reference Range Interpretation Comments POCT GLU (test code = 6557083991) 193 mg/dL 70-110 H Lab Interpretation (test code = Abnormal 88769-9) [facility] GLUCOSE (AUTOMATED)2022-07-20 14:16:31 Test Item Value Reference Range Interpretation Comments POCT GLU (test code = 1703682425) 105 mg/dL 70-110 Lab Interpretation (test code = Normal 79054-6) [facility] [id number] 11:40:04 Test Item Value Reference Range Interpretation Comments NT-proBNP (test code 6040 pg/mL See_Comment H [Autom ated = 6493858054) message] The system which generated this result transmitted reference range : <=125. The reference range was not used to interpret this result as normal/abnormal . MILAD (test code = MILAD) Biotin has been reported to cause a negative bias, interpret results relative to patient's use of biotin. Lab Interpretation Abnormal (test code = 37568-3) [facility] METABOLIC PANEL (NA, K, CL, CO2, GLUCOSE, BUN, CREATININE, CA)2022-07-20 11:34:05 Test Item Value Reference Range Interpretation Comments NA (test code = 138 mmol/L 135-145 4080662691) K (test code = 3.8 mmol/L 3.5-5.0 3908749595) CL (test code = 105 mmol/L 98-108 6791401311) CO2 TOTAL (test code = 26 mmol/L 23-31 3723043906) AGAP (test code = 2-16 8665848784) BUN (test code = 48 mg/dL 7-23 H 5714009011) GLUCOSE (test code = 108 mg/dL 70-110 6224761202) CREATININE (test code = 4.00 mg/dL 0.60-1.25 H 4900334753) CALCIUM (test code = 8.0 mg/dL 8.6-10.6 L 1169884089) eGFR (test code = mL/min/1.73m2 6170066535) MILAD (test code = MILAD) Association of [...] tests). Lab Interpretation Abnormal (test code = 74958-2) [facility] WITH [id number] 11:02:40 Test Item Value Reference Range Interpretation Comments [...] as normal/abnormal . HGB (test code = 8.6 g/dL 12.2-16.4 L 718-7) HCT (test code = 25.7 % 38.4-49.3 L 4544-3) MCV (test code = 92.8 fL 81.7-95.6 787-2) MCH (test code = 31.0 pg 26.1-32.7 785-6) MCHC (test code = 33.5 g/dL 31.2-35.0 786-4) RDW-SD (test code = 43.2 fL 38.5-51.6 35082-3) RDW-CV (test code = 12.8 % 12.1-15.4 788-0) PLT (test code = See_Comment [Automated 777-3) message] The sy stem which generated this result transmitted reference range : 150 - 328 10*3/ ?L. The reference r taye was not used to interpret this result as normal/abnormal . MPV (test code = 10.8 fL 9.8-13.0 65482-0) NRBC/100 WBC (test See_Comment [Automat ed code = 3190028472) message] The system which generated this result transmitted reference range : 0.0 - 10.0 /100 WBCs. The refer ence range was not u sed to interpret th is result as normal/abnormal . NRBC x10^3 (test code See_Comment [Auto mated = 2215390484) message] The s ystem which generated this result transmitted reference range : 10*3/?L. The reference range was not used to interpret this result as normal/abnormal . GRAN MAT (NEUT) % 62.2 % (test code = 770-8) IMM GRAN % (test code 0.60 % = 7729409189) LYMPH % (test code = 21.8 % 736-9) MONO % (test code = 11.6 % 5905-5) EOS % (test code = 3.0 % 713-8) BASO % (test code = 0.8 % 706-2) GRAN MAT x10^3(ANC) 3.29 10*3/uL 1.99-6.95 (test code = 2562159723) IMM GRAN x10^3 (test 0.03 10*3/uL 0.00-0.06 code = 3917067251) LYMPH x10^3 (test code 1.15 10*3/uL 1.09-3.23 = 731-0) MONO x10^3 (test code 0.61 10*3/uL 0.36-1.02 = 742-7) EOS x10^3 (test code = 0.16 10*3/uL 0.06-0.53 711-2) BASO x10^3 (test code 0.04 10*3/uL 0.01-0.09 = 704-7) Lab Interpretation Abnormal (test code = 42179-7) [facility] GLUCOSE (AUTOMATED)2022-07-20 02:47:13 Test Item Value Reference Range Interpretation Comments POCT GLU (test code = 5115220878) 188 mg/dL 70-110 H Lab Interpretation (test code = Abnormal 30123-1) [facility] GLUCOSE (AUTOMATED)2022-07-20 00:36:09 Test Item Value Reference Range Interpretation Comments POCT GLU (test code = 1039041354) 140 mg/dL 70-110 H Lab Interpretation (test code = Abnormal 56884-8) [facility] GLUCOSE (AUTOMATED)2022-07-19 23:09:07 Test Item Value Reference Range Interpretation Comments POCT GLU (test code = 4703721015) 197 mg/dL 70-110 H Lab Interpretation (test code = Abnormal 68310-6) [facility] GLUCOSE (AUTOMATED)2022-07-19 14:25:36 Test Item Value Reference Range Interpretation Comments POCT GLU (test code = 9945153800) 105 mg/dL 70-110 Lab Interpretation (test code = Normal 73322-5) [facility] GLUCOSE (AUTOMATED)2022-07-19 02:28:10 Test Item Value Reference Range Interpretation Comments POCT GLU (test code = 3037042331) 140 mg/dL 70-110 H Lab Interpretation (test code = Abnormal 47450-4) [facility] GLUCOSE (AUTOMATED)2022-07-18 22:29:44 Test Item Value Reference Range Interpretation Comments POCT GLU (test code = 4937979542) 130 mg/dL 70-110 H Lab Interpretation (test code = Abnormal 87050-1) [facility] GLUCOSE (AUTOMATED)2022-07-18 18:21:29 Test Item Value Reference Range Interpretation Comments POCT GLU (test code = 2496839161) 106 mg/dL 70-110 Lab Interpretation (test code = Normal 67049-7) [facility] GLUCOSE (AUTOMATED)2022-07-18 13:57:06 Test Item Value Reference Range Interpretation Comments POCT GLU (test code = 8877264438) 103 mg/dL 70-110 Lab Interpretation (test code = Normal 66203-6) [facility] GLUCOSE (AUTOMATED)2022-07-18 10:57:10 Test Item Value Reference Range Interpretation Comments POCT GLU (test code = 2311216465) 140 mg/dL 70-110 H Lab Interpretation (test code = Abnormal 00279-9) [facility] GLUCOSE (AUTOMATED)2022-07-17 22:49:06 Test Item Value Reference Range Interpretation Comments POCT GLU (test code = 6027920413) 111 mg/dL 70-110 H Lab Interpretation (test code = Abnormal 39063-3) [facility] GLUCOSE (AUTOMATED)2022-07-17 18:10:26 Test Item Value Reference Range Interpretation Comments POCT GLU (test code = 7805815146) 128 mg/dL 70-110 H Lab Interpretation (test code = Abnormal 10145-3) [facility] GLUCOSE (AUTOMATED)2022-07-17 14:10:35 Test Item Value Reference Range Interpretation Comments POCT GLU (test code = 4200425580) 82 mg/dL 70-110 Lab Interpretation (test code = Normal 95226-6) [facility] GLUCOSE (AUTOMATED)2022-07-17 02:56:08 Test Item Value Reference Range Interpretation Comments POCT GLU (test code = 4540959720) 96 mg/dL 70-110 Lab Interpretation (test code = Normal 38593-2) [facility] GLUCOSE (AUTOMATED)2022-07-16 23:23:11 Test Item Value Reference Range Interpretation Comments POCT GLU (test code = 1393917344) 91 mg/dL 70-110 Lab Interpretation (test code = Normal 76849-6) [facility] GLUCOSE (AUTOMATED)2022-07-16 18:10:54 Test Item Value Reference Range Interpretation Comments POCT GLU (test code = 6848145956) 92 mg/dL 70-110 Lab Interpretation (test code = Normal 46991-1) [facility] [id number] 17:46:03 Test Item Value Reference Range Interpretation Comments PTH-INTACT (test code = 70.5 pg/mL 12.0-88.0 9185131414) PTH-CA Interpretation Furthe r clinical (test code = 3244268753) yosvany a needed for interpretation. CALCIUM (test code = 8.2 mg/dL 8.6-10.6 L 6203945861) Lab Interpretation (test Abnormal code = 25375-3) [facility] GLUCOSE (AUTOMATED)2022-07-16 15:08:58 Test Item Value Reference Range Interpretation Comments POCT GLU (test code = 5724447871) 103 mg/dL 70-110 Lab Interpretation (test code = Normal 72075-2) [facility] GLUCOSE (AUTOMATED)2022-07-16 14:30:46 Test Item Value Reference Range Interpretation Comments POCT GLU (test code = 4703608179) 99 mg/dL 70-110 Lab Interpretation (test code = Normal 86972-2) [facility] GLUCOSE (AUTOMATED)2022-07-16 02:51:52 Test Item Value Reference Range Interpretation Comments POCT GLU (test code = 4118691041) 117 mg/dL 70-110 H Lab Interpretation (test code = Abnormal 45495-4) [facility] GLUCOSE (AUTOMATED)2022-07-15 23:18:15 Test Item Value Reference Range Interpretation Comments POCT GLU (test code = 9622817888) 122 mg/dL 70-110 H Lab Interpretation (test code = Abnormal 25911-0) [facility] 22:49:56 Test Item Value Reference Range Interpretation Comments Height (test code = in 8974626904) Weight (test code = lbs 1157638051) Systolic BP (test code = mmHg 1879143297) Diastolic BP (test code mmHg = 3697780098) Heart Rate (test code = bpm 3782981142) BSA (test code = 2.10 m2 9859328731) LVIDD (test code = 5.00 cm 3380625230) Left Ventricular End 119.6 mL Diastolic Volume by Teichholz Method (test code = 6479387) IVS (test code = 1.43 cm 6458894840) Interventricular Septum 1.43 cm Diastolic Thickness by 2D (test code = 5982528) LVPWD (test code = 1.35 cm 6735211946) PW (test code = 1.35 cm 0.6-1.9 8802893155) EF(Teich) (test code = 72.10 % 8710365783) LVIDS (test code = 2.90 cm 3777631143) Left Ventricular End 33.3 mL Systolic Volume by Teichholz Method (test code = 2421837) FS (test code = 42 % 8823629795) EF - 2D (test code = 72.10 % 23980707) LVOT diameter (test code 2.17 cm = 7582829502) LVOT area (test code = 3.70 cm2 3253116742) ACS (test code = 2.03 cm 0680365432) Ao root diam (test code 3.40 cm = 5798656945) Aortic root (test code = 3.4 cm 3812207607) Ao root annulus (test 3.4 cm code = 4097036023) LA size (test code = 4.8 cm 6417550420) TR Peak [place] (test code = 316.1 cm/s 1680985407) Triscuspid Valve mmHg Regurgitation Peak Gradient (test code = 8859821550) E wave decelartion time 0.26 s (test code = 7291744679) MV Peak E [place] (test code 137.0 cm/s = 2110496459) MV Peak A [place] (test code 131.0 cm/s = 8122519823) E/A ratio (test code = ratio 1434504885) MR max PG (test code = 72.30 mm[Hg] 3319284589) MR max [place] (test code = 425.10 cm/s 7216551775) Mr max [place] (test code = 425.1 m/s 1050099451) MV Prop V (test code = 44.60 cm/s 3977196925) Tapse (test code = 2.8 cm 7134463380) LVOT stroke volume (test 143.90 cm3 code = 6137996374) LVOT peak [place] (test code 145.0 cm/s = 4251395239) LVOT mn grad (test code mmHg = 2176977771) AV LVOT peak gradient mmHg (test code = 6486213350) LVOT peak VTI (test code 39.0 cm = 5681375117) LV V1 mean (test code = 92.90 cm/s 0572778573) Aortic valve mean 126.6 cm/s velocity (test code = 1716795488) Ao peak [place] (test code = 226.5 cm/s 5582954629) Ao VTI (test code = 53.2 cm 3486854219) AV area by cont VTI 2.7 cm2 (test code = 0759358074) AV area peak [place] (test 2.4 cm2 code = 6056146925) Ao max PG (test code = 20.50 mm[Hg] 6066619178) AV peak gradient (test mmHg code = 5349328777) AV valve area (test code 2.70 cm2 = 5585626634) AV mean gradient (test mmHg code = 8049737752) Radiology Study observation (narrative) (test code = 24298-3) ADD (test code = ADD) Addendum by Amanda Gaston MD on 07/15/2022 6:07 PM [employer] ?Left?Ventricle: Left ventricle size is normal. Mildly increased wall thickness. Normal wall motion. There is pseudonormal diastolic dysfunction. ?Tricuspid?Valve: Right ventricular systolic pressure is 45-50 mmHg. ?RA pressure is 5-10 mmHg. ?Pericardium: Small pericardial effusion present. No indication of cardiac tamponade. ?Left?Atrium: Left atrium is severely dilated. ?Right?Atrium: Right atrium is mildly dilated. Left VentricleLeft ventricle size is normal. Mildly increased wall thickness. Normal wall motion. Normal systolic function with a visually estimated EF of 60 - 65%. There is pseudonormal diastolic dysfunction.Right VentricleRight ventricle size is normal. Normal systolic function.Left AtriumLeft atrium is severely dilated.Right AtriumRight atrium is mildly dilated.Mitral ValveMitral valve structure is normal. Mild transvalvular regurgitation.Tricusp id ValveTricuspid valve structure is normal. Trace transvalvular regurgitation. Right ventricular systolic pressure is 45-50 mmHg. RA pressure is 5-10 mmHg.Aortic ValveTricuspid. Mildly thickened cusps.Pulmonic ValvePulmonic valve is normal in structure and function.Ascending AortaNormal sized aorta.PericardiumSmal l pericardial effusion present. No indication of cardiac tamponade.Study DetailsStudy quality was adequate. A complete echocardiogram was performed using 2D, color flow Doppler and spectral Doppler. The apical, parasternal and subcostal views were obtained. [facility] CenterTHYROID STIMULATING [id number] 20:03:08 Test Item Value Reference Range Interpretation Comments TSH (test code = See_Comment [Automated message] 2007634209) The system [employer] generated this result transmitted ref erence range: 0.45 - 4 .70 mIU/L. The refe rence range was not u sed to interpret this result as normal/abnor mal. Lab Interpretation (test Normal code = 58251-5) [facility] CenterURIC [id number] 19:32:21 Test Item Value Reference Range Interpretation Comments URIC ACID (test code = 9332840781) 9.1 mg/dL 3.6-8.0 H Lab Interpretation (test code = Abnormal 23471-9) [facility] CenterCREATINE [id number] 19:32:01 Test Item Value Reference Range Interpretation Comments CK (test code = 9415239289) 86 U/L 33-194 Lab Interpretation (test code = Normal 94984-4) [facility] GLUCOSE (AUTOMATED)2022-07-15 18:02:51 Test Item Value Reference Range Interpretation Comments POCT GLU (test code = 0696157085) 181 mg/dL 70-110 H Lab Interpretation (test code = Abnormal 90136-8) [facility] GLUCOSE (AUTOMATED)2022-07-15 14:26:02 Test Item Value Reference Range Interpretation Comments POCT GLU (test code = 2574587709) 127 mg/dL 70-110 H Lab Interpretation (test code = Abnormal 80242-9) [facility] Metabolic Panel (NA, K, CL, CO2, GLUCOSE, BUN, CREATININE, CA)2022-07-15 11:24:03 Test Item Value Reference Range Interpretation Comments NA (test code = 138 mmol/L 135-145 6917876647) K (test code = 4.6 mmol/L 3.5-5.0 1519022148) CL (test code = 107 mmol/L 98-108 6220863467) CO2 TOTAL (test code = 23 mmol/L 23-31 0636998601) AGAP (test code = 2-16 5157419717) BUN (test code = 42 mg/dL 7-23 H 4462768909) GLUCOSE (test code = 132 mg/dL 70-110 H 1479672604) CREATININE (test code = 4.09 mg/dL 0.60-1.25 H 3682270796) CALCIUM (test code = 7.7 mg/dL 8.6-10.6 L 3153750793) eGFR (test code = mL/min/1.73m2 8621461069) MILAD (test code = MILAD) Association of [...] tests). Lab Interpretation Abnormal (test code = 12427-1) [facility] CenterMagnesium [id number] 11:24:03 Test Item Value Reference Range Interpretation Comments MAGNESIUM (test code = 6679536361) 2.5 mg/dL 1.7-2.4 H Lab Interpretation (test code = Abnormal 95892-8) [facility] with [id number] 11:07:01 Test Item Value Reference Range Interpretation Comments WBC (test code = See_Comment [Automated 8890-2) message] The sy stem which generated this result transmitted reference range : 4.20 - 10.70 10*3/?L. The reference range was not used to interpret this result as normal/abnormal . RBC (test code = See_Comment L [Automated 637-8) message] The sy stem which generated this result transmitted reference range : 4.26 - 5.52 10*6/?L. The reference range was not used to interpret this result as normal/abnormal . HGB (test code = 8.6 g/dL 12.2-16.4 L 718-7) HCT (test code = 26.3 % 38.4-49.3 L 4544-3) MCV (test code = 95.3 fL 81.7-95.6 787-2) MCH (test code = 31.2 pg 26.1-32.7 785-6) MCHC (test code = 32.7 g/dL 31.2-35.0 786-4) RDW-SD (test code = 45.2 fL 38.5-51.6 17188-1) RDW-CV (test code = 13.1 % 12.1-15.4 788-0) PLT (test code = See_Comment [Automated 777-3) message] The sy stem which generated this result transmitted reference range : 150 - 328 10*3/ ?L. The reference r taye was not used to interpret this result as normal/abnormal . MPV (test code = 10.7 fL 9.8-13.0 14781-6) NRBC/100 WBC (test See_Comment [Automat ed code = 9041969822) message] The system which generated this result transmitted reference range : 0.0 - 10.0 /100 WBCs. The refer ence range was not u sed to interpret th is result as normal/abnormal . NRBC x10^3 (test code See_Comment [Auto mated = 6149127593) message] The s ystem which generated this result transmitted reference range : 10*3/?L. The reference range was not used to interpret this result as normal/abnormal . GRAN MAT (NEUT) % 64.0 % (test code = 770-8) IMM GRAN % (test code 0.30 % = 3201121498) LYMPH % (test code = 20.2 % 736-9) MONO % (test code = 11.7 % 5905-5) EOS % (test code = 3.3 % 713-8) BASO % (test code = 0.5 % 706-2) GRAN MAT x10^3(ANC) 3.68 10*3/uL 1.99-6.95 (test code = 1837423640) IMM GRAN x10^3 (test 0.00-0.06 code = 4417223245) LYMPH x10^3 (test code 1.16 10*3/uL 1.09-3.23 = 731-0) MONO x10^3 (test code 0.67 10*3/uL 0.36-1.02 = 742-7) EOS x10^3 (test code = 0.19 10*3/uL 0.06-0.53 711-2) BASO x10^3 (test code 0.03 10*3/uL 0.01-0.09 = 704-7) Lab Interpretation Abnormal (test code = 26485-6) [facility] CenterN-TERMINAL [id number] 03:37:47 Test Item Value Reference Range Interpretation Comments NT-proBNP (test code 3500 pg/mL See_Comment H [Autom ated = 0571175119) message] The system which generated this result transmitted reference range : <=125. The reference range was not used to interpret this result as normal/abnormal . MILAD (test code = MILAD) Biotin has been reported to cause a negative bias, interpret results relative to patient's use of biotin. Lab Interpretation Abnormal (test code = 96745-5) [facility] CenterPOCT [facility]SE (AUT[facility]ATED)2022-07-15 03:12:09 Test Item Value Reference Range Interpretation Comments POCT GLU (test code = 0826974028) 172 mg/dL 70-110 H Lab Interpretation (test code = Abnormal 08042-1) [facility] CenterACTIVATED PARTIAL THRMPLAS [id number] 19:09:08 Test Item Value Reference Range Interpretation Comments APTT Patient (test See_Comment [Automat ed code = 3173-2) message] The system which generated this result transmitted reference range : 23 - 38 Seconds . The reference range was not used to interpr et this result as normal/abnormal . MILAD (test code = MILAD) The [facility] patient population mean normal value for aPTT is 30 seconds. Lab Interpretation Normal (test code = 33196-1) [facility] CenterCOMP. METABOLIC PANEL (92389)2022-07-14 19:07:25 Test Item Value Reference Range Interpretation Comments NA (test code = 135 mmol/L 135-145 5509559960) K (test code = 4.8 mmol/L 3.5-5.0 7483123706) CL (test code = 107 mmol/L 98-108 5880947801) CO2 TOTAL (test code = 21 mmol/L 23-31 L 2988043158) AGAP (test code = 2-16 9213911436) BUN (test code = 44 mg/dL 7-23 H 0247793018) GLUCOSE (test code = 153 mg/dL 70-110 H 4575923393) CREATININE (test code = 3.81 mg/dL 0.60-1.25 H 4766220159) TOTAL BILI (test code = 0.4 mg/dL 0.1-1.6 5863394319) CALCIUM (test code = 8.1 mg/dL 8.6-10.6 L 4295868694) T PROTEIN (test code = 5.6 g/dL 6.3-8.2 L 2758050232) ALBUMIN (test code = 3.4 g/dL 3.5-5.0 L 4963031093) ALK PHOS (test code = 50 U/L 34-122 4853654248) ALTv (test code = 12 U/L 5-50 1742-6) AST(SGOT) (test code = 18 U/L 13-40 1302821236) eGFR (test code = mL/min/1.73m2 4017481314) MILAD (test code = MILAD) Association of [...] tests). Lab Interpretation Abnormal (test code = 82575-8) [facility] CenterPROTHROMBIN TIME / [id number] 19:06:49 Test Item Value Reference Range Interpretation Comments [...] tions. Lab Interpretation (test Normal code = 07074-2) [facility] CenterCB WITH [id number] 18:52:23 Test Item Value Reference Range Interpretation Comments [...] as normal/abnormal . HGB (test code = 9.3 g/dL 12.2-16.4 L 718-7) HCT (test code = 27.7 % 38.4-49.3 L 4544-3) MCV (test code = 93.3 fL 81.7-95.6 787-2) MCH (test code = 31.3 pg 26.1-32.7 785-6) MCHC (test code = 33.6 g/dL 31.2-35.0 786-4) RDW-SD (test code = 44.8 fL 38.5-51.6 79732-5) RDW-CV (test code = 13.2 % 12.1-15.4 788-0) PLT (test code = See_Comment [Automated 777-3) message] The sy stem which generated this result transmitted reference range : 150 - 328 10*3/ ?L. The reference r taye was not used to interpret this result as normal/abnormal . MPV (test code = 10.9 fL 9.8-13.0 26301-9) NRBC/100 WBC (test See_Comment [Automat ed code = 1399097093) message] The system which generated this result transmitted reference range : 0.0 - 10.0 /100 WBCs. The refer ence range was not u sed to interpret th is result as normal/abnormal . NRBC x10^3 (test code See_Comment [Auto mated = 6002224191) message] The s ystem which generated this result transmitted reference range : 10*3/?L. The reference range was not used to interpret this result as normal/abnormal . GRAN MAT (NEUT) % 72.3 % (test code = 770-8) IMM GRAN % (test code 0.30 % = 4263752725) LYMPH % (test code = 16.6 % 736-9) MONO % (test code = 7.3 % 5905-5) EOS % (test code = 2.7 % 713-8) BASO % (test code = 0.8 % 706-2) GRAN MAT x10^3(ANC) 4.54 10*3/uL 1.99-6.95 (test code = 8816788291) IMM GRAN x10^3 (test 0.00-0.06 code = 1258870785) LYMPH x10^3 (test code 1.04 10*3/uL 1.09-3.23 L = 731-0) MONO x10^3 (test code 0.46 10*3/uL 0.36-1.02 = 742-7) EOS x10^3 (test code = 0.17 10*3/uL 0.06-0.53 711-2) BASO x10^3 (test code 0.05 10*3/uL 0.01-0.09 = 704-7) Lab Interpretation Abnormal (test code = 08602-3) [facility] GLUCOSE (AUTOMATED)2022-05-15 20:06:15 Test Item Value Reference Range Interpretation Comments POCT GLU (test code = 0108292307) 185 mg/dL 70-110 H Lab Interpretation (test code = Abnormal 62665-8) [facility] CenterIMMUNOFIXATION, [id number] 18:39:54 Test Item Value Reference Range Interpretation Comments T PROTEIN (test code = 5.1 g/dL 6.3-8.2 L 5394002948) ALBUMIN (test code = 2.4 g/dL 3.5-5.0 L 3101003204) IgG (test code = 409 mg/dL 636-1600 L 0190414387) IgA (test code = 296 mg/dL 70-312 6745154182) IgM (test code = 99 mg/dL 56-352 5963866873) YANNICK INTERP (test code Severe hypoalbuminemia = 8270465952) and hypogammaglobulin, IgG.No monoclonal protein identified. No urine specimen submitted for testing. Reba Gongora MD ?12/22/2020 ?3:48 PM ? Lab Interpretation Abnormal (test code = 19760-3) [facility] GLUCOSE (AUTOMATED)2020-12-23 17:11:06 Test Item Value Reference Range Interpretation Comments POCT GLU (test code = 0267827867) 207 mg/dL 70-110 H Lab Interpretation (test code = Abnormal 97634-5) [facility] GLUCOSE (AUTOMATED)2020-12-23 13:38:44 Test Item Value Reference Range Interpretation Comments POCT GLU (test code = 9097791273) 181 mg/dL 70-110 H Lab Interpretation (test code = Abnormal 35451-5) [facility] (NA, K, CL, CO2, GLUCOSE, BUN, CREATININE, CA)2020-12-23 11:32:16 Test Item Value Reference Range Interpretation Comments NA (test code = 136 mmol/L 135-145 2415265684) K (test code = 3.7 mmol/L 3.5-5.0 2115156894) CL (test code = 110 mmol/L 98-108 H 5682210022) CO2 TOTAL (test code = 22 mmol/L 23-31 L 7560470281) AGAP (test code = 2-16 0091980911) BUN (test code = 46 mg/dL 7-23 H 5428617160) GLUCOSE (test code = 194 mg/dL 70-110 H 0633765674) CREATININE (test code = 2.79 mg/dL 0.60-1.25 H 5090537346) CALCIUM (test code = 7.4 mg/dL 8.6-10.6 L 6504413084) eGFR (test code = mL/min/1.73m2 9857853874) MILAD (test code = MILAD) Association of [...] tests). Lab Interpretation Abnormal (test code = 78024-5) [facility]PO[facility])2020-12-23 05:17:31 Test Item Value Reference Range Interpretation Comments POCT GLU (test code = 0211506975) 129 mg/dL 70-110 H Lab Interpretation (test code = Abnormal 57830-5) [facility] CenterGBM AB, IGG (DILIP)2020-12-23 05:06:05 Test Item Value Reference Range Interpretation Comments GBM IgG(NADIYA) (test 0 AU/mL 0-19 INTERPRET HUEY INFORMATION: code = 74284-0) GBM Ab, IgG by Multiplex Bead ?Assay [...] enal prognosis.Perfo rmed By: [facility] [address] [place], [place] [address]Xsmlhvd ory Director: Vangie Olivarez MD [facility] CenterKappa-Lambda Quant. FLC with [id number] 03:34:01 Test Item Value Reference Range Interpretation Comments [place] Qnt Free Light 80.04 mg/L 3.30-19.40 H INTERPR ETIVE Chains (test code = INFORMAT ION: [place] 28008-5) Qnt Free Light Chains Undetect ed antigen excess is a rare event but cannot be exclu ded. Free light karlos n results should always be interpreted in conjunction wit h other clinical and laboratory find ings. Lambda Qnt Free Light 64.51 mg/L 5.71-26.30 H Chains (test code = 89822-8) [place]/Lambda Free Light 0.26-1.65 Perf ormed By: [facility] Chain Ratio (test code Labor cxaxngu915 = 58917-3) [place], [place] [address]Iywnepvvxn Director: Vangie Olivarez MD Lab Interpretation Abnormal (test code = 10421-9) [facility] CenterNEUTROPHIL CYTOPLASMIC AB, [id number] 22:56:55 Test Item Value Reference Range Interpretation Comments ANCA TITER (test code <1:20 See_Comment The AN CA IFA is <1:20; = 46986-0) therefore, no f urther testing will be [...] vascul ar disease or arthritis.Pe rformed By: [employer] [address] [place], [place] [address]Cqwkayi ory Director: Vangie Olivarez MD [Automated m essage] The system which ge nerated this result transmit flor reference range : <1:20. The reference range was not used to interpr et this result as salomón l/abnormal. [facility] CenterPOCT [facility]SE (AUT[facility]ATED)2020-12-22 21:44:00 Test Item Value Reference Range Interpretation Comments POCT GLU (test code = 7074333947) 205 mg/dL 70-110 H Lab Interpretation (test code = Abnormal 35991-4) [facility] CenterCYTO [id number] 19:59:31 Test Item Value Reference Range Interpretation Comments Case Report (test code = Non-Gynecologic 7051127257) Cytology ?Case: [id number] ?Authorizing Provider: ?Ju Kasper MD ?Collected: ? 12/20/2020 0747 ?Ordering Location: ? ? [facility] Medicine Surgery Unit ?Received: ?12/20/2020 08 ?Specimen: ? ?URINE, CLEAN CATCH ? Final Diagnosis (test b8vuyOCqMWYoz2dyTNAny code = 8680470689) GFuZzEwMzNcZnRuYmpcdW MxIHtccnRmMVxlcGljOTQ oPiocmgAyCUQgmBCoP3Ss qirgIQjoSM7sSM6noEhfk UFpnGAdROZvOkIeq8hsc7 81pHGid9weWGKZdtwdoZw 0fYveM46yk1I0WbpjC30p qYGbMTJ9VGIjBKIvzZNkM NDtSWK2JKZirBVgN9irMS RnRC0guyjpPGnsPKxmNEH qlSP3PVRxfAWpU2XbTIUc LYcvZULdabh6HlGgSw2oy GVyeTcyMFxwYXJkXHBsYW luXGJcZnMyMiBBLiAgVVJ JTkUsIFZPSURFRFxwYXJc d9kiXyLuz7bkjHw2OCzaP CAgLSBORUdBVElWRSBGT1 IgSElHSCBHUkFERSBVUk9 TVERNQDVQSFQJOoZSPj5Z TTYmE3YTOHSOAQ0UBrKdT WvjHWNvSD7pKIxKNmlALM NJCSQTBW0UUPEFFIDdHJC mjberwDGui2rzyJw8ZVsb NJolKAO9y2vpwVNsKBGxv HGtAnBvPDVcNOCpp2ftSI VmbGFuZzEwMzNcZnRuYmp orWWmCEIiIqCrt7hic783 dQWtk6sgERFhDrV5uYIwF ZHtuZhugkp0xAbjOlOdHN Avt1gxuxFvOtPyKPAsBOD dHNIhmAVnI650ZVQlEOsr d6xlf5UeUJPjoEJgb1A7I GGYVXguEnZrD363x3wwh8 nnerGxbVW4WMGsXMJ9LDo jnnEvwmM6DReokUFfWjE2 IDtccmVkMFxncmVlbjBcY um5GKKgQ435ISM9iAglc1 hlILK9EEGcHZMzUqwvEe8 hbXSfJ025LUMmWKTDLOBw tAj5OUSczzJrdsWcyCSGt 032C630s0rnEUCrcaRkgI oBcrkkz5duU129JBEatNQ ydzEyMjQwXHBhcGVyaDE1 PAFpUE3fpbqyUZaoQFrhA OUtikB2JHChyFDdI3DaIZ FpZS1dzxtsVWP0DZbgKIW qTHM9TyUvCRMca6Bfigf0 TuOtky3kfs20OLH0e1Dsd KybSIF2TWC1GxHhFz8ieK SaCONhDM6hJkEbeVQyYFV yjq62dGgdGSblwbXeuZ1h IwApHHXzsLJuFCQvEJ6fx TClKQGssG9oufmmVKGkKa JkcmhlYWRccGdicmRyZm9 kiEvxPYM3CWhdR3tkyR4o UhO7YEvdV5tzfZ9nNLk9S ZdlpPX6FCRwvK9kJT4dzc ufx4fzTGwoWUziKYSugeC 4gcB5XBTldSVwG8YauL7o PXHrKM0kirmjq0mnLOK8C GhsHYXsOET7QdCpGOSnj4 Asnmr5JePvf3RxdRUoTEh eO79al518VZWwqcJpP5ia bGFpblxwbGFpblxmMFxmc zL0YUTdXZXmLPihWIIyAB ZzMjBcbGFuZzEwMzNcaGl jaFxmMVxkYmNoXGYxXGxv P2vcWsZaT3LgTFYiJyMwx LUsRSvxwNU6OSJwGLYgn0 3jaZe9VVBwtlnmq9DjLEN fiZRdkJHxzH0vwaXes8nx UVUnZNLiCUDfT1JqSUJ7y SSpGTGtuCHtnWZ3JG4cir UfZP4eVWDqSrmzrhMxgMV hyjPhKQPlOLosq2tbBN6u AQSjtOpkxW8boXH4IWZsj 4lvnHRyrCCgm8rni6Nuoq FtZShzKSBtYXkgYXBwZWF cSK8kWUPoiSAyqgQui9F0 ZwhkaUZvpjisQteutfV6Q DixzjcdOOZqTOhbD7qcTk RkGGIvbSkiXnrie8PqCZA yXGZzMjhccGFyfX0= Final Diagnosis Comment b6indHCqGVRwmKV2VDOsO (test code = 1831338006) RBdt6cus8OniRNehBPbJL ffgJEzgrVnko08bWN5aW0 8UT0fDPQpRgT6FPDivhK6 Vge9ZFVzDEWhuWOzA584u 8xxu4yipwNalPD0iFjhBG ZyfltuCaM5MDrgTKWpbhz cLVi4TYdaUUSlhIZ1NAHx eZAdQ5BpEDBzKK5xzye5W GZ9NTxvHWSuTvA8BEToiA WpNRTqxRfvDFmog262UKI 5UuObRWFvfrAvb2noBvWl x3etrCq7RTtirCCxfiwbs nZfJFQsHISikfXmkX87QB JlbmlnbiBhcHBlYXJpbmc gdXJvdGhlbGlhbCBjZWxs urKoKJ9wxPUwFKwigKcbf 6M2ZJ3muNKaB6OceXXeVM 4gLN7fbTXou7PmpSdnZsO UaGVyZSBhcmUgYWxzbyBy PFLaTczeb0BwG1QvkMKxx 4Piyb9dQk6inTNwhFcmSD 50IGNlbGxzIGFyZSBpZGV udGlmaWVkLlxwYXJ9 Clinical Information Hematuria. 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) Gross Description (test i9pivCKkZCFofVLKVSLbV code = 3437855773) djnwrSlLBAdaYQlJ3Pphm klOQjtLK9qMA3ahGugeVD wfSMoRV1LIOBsPyTkWDSx cGVydzEyMjQwXHBhcGVya JB0SKTsBR7uqcziEPqoBX cfEELwmeU8IGRomKKtU3B xXDBjXR7jcianLLV9XJxl sM7exbZXWsheKg1giVXvm HtcZjFcZmNoYXJzZXQwXG UahIpeECArYBy0nY2JDtp aEHW2GWKPBjplIOVmMF1G e3miRLUhmBQgAKY5VTzzi THkIWVrGFAkGSt0ORUyOZ gosEGsRV5spGgtXphqaFq hn1UyzCAyDFkkFKHwQABe OPvvTXBlMX2DBoXnVAqvR Tk2GACiUHo6MRf4JY0LHt XsCXGpPSA2FWYnPTToAJl 0UDwfDW5GOVNkUMH3WaKh VNZnWOO8QufaVDs3KQWeR FxmIEFyaWFsIFxcZnMgMT OmETgobVCrEU7dgXkfdTT pblxmczIwXHBhciANClxw bGFpblxlcGljTmVzdERvY zEgDQpcbHRycGFyXGxpbj BccmluMCANClxsdHJjaFx mczIyIEExLiAgVVJJTkUs IFZPSURFRFxwYXIgDQpSZ WNlaXZlZCBmcmVzaCBpcy XqUXNaE7WqbyDtBmD9FLk bl6hiPgq2pAHohOHgSY0D UHJlcGFyZWQgMiBzbGlkZ XMgKFBhcGFuaWNvbGFvdS IjpOIbfsAaKxZdUGO2mF6 ffSsdXMQzWCQeaqO2cR2l UYRnOSSfLHSbrT3upbPgE AAdDGVxhcR6pM1zGTkkGC ZiBUddoLrpdN6hXXTrA55 ca2BAt6PvGFWxKJirf7aw yGbcj3IqvDKxXOidYEJne MIgJJvkrO3mRnTwb4fndJ f4HSbwgoH7HXHkpz1DEus nfL2yJzSyh1lkrZa8XTTQ UfkrytC1q0clkXmhd0Ttq UUnLP1WJf8= Embedded Images (test code = 7954998163) [facility] CenterANTI-NUCLEAR ANTIBODY [id number] 19:30:27 Test Item Value Reference Range Interpretation Comments NIXON (test code = Negative Negative 2606174651) MILAD (test code = MILAD) Negative - No Anti-Nuclear Antibodies detected by IFA.Positive - NIXON IFA screen performed with a 1:80 dilution in adults and a 1:40 dilution in pediatrics. Any NIXON "Positive" will have titer performed and reported separately.Negative - No Anti-Nuclear Antibodies detected by IFA.Positive - NIXNO IFA screen performed with a 1:80 dilution in adults and a 1:40 dilution in pediatrics. Any NIXON "Positive" will have titer performed and reported separately. Lab Interpretation (test Normal code = 51150-3) [facility] GLUCOSE (AUTOMATED)2020-12-22 17:17:25 Test Item Value Reference Range Interpretation Comments POCT GLU (test code = 1570736705) 223 mg/dL 70-110 H Lab Interpretation (test code = Abnormal 11402-3) [facility] CenterRPR (QUANTITATIVE)2020-12-22 16:02:58 Test Item Value Reference Range Interpretation Comments RPR (Quantitative) (test code = Nonreactive Nonreactive 54176-4) Lab Interpretation (test code = Normal 41591-8) [facility] CenterVITAMIN D, [id number] 14:42:43 Test Item Value Reference Range Interpretation Comments VIT D 25OH (test code = <13 25-80 L 78059-0) MILAD (test code = MILAD) Deficiency: <20 ng/mLInsufficiency: 20-24 ng/mLOptimal: 25-80 ng/mL Lab Interpretation (test Abnormal code = 47687-4) [facility] GLUCOSE (AUTOMATED)2020-12-22 12:55:39 Test Item Value Reference Range Interpretation Comments POCT GLU (test code = 0274607779) 95 mg/dL 70-110 Lab Interpretation (test code = Normal 85532-6) [facility] CenterTROPONIN [id number] 11:19:40 Test Item Value Reference Range Interpretation Comments TROPONIN I (test 0.119 ng/mL See_Comment H [Automated code = 2899209010) message] The system which generated this result [...] ? Lab Interpretation Abnormal (test code = 33900-0) [facility] CenterBASIC METABOLIC PANEL (NA, K, CL, CO2, GLUCOSE, BUN, CREATININE, CA)2020-12-22 11:18:18 Test Item Value Reference Range Interpretation Comments NA (test code = 138 mmol/L 135-145 4217271184) K (test code = 3.6 mmol/L 3.5-5.0 9747345350) CL (test code = 109 mmol/L 98-108 H 6115175390) CO2 TOTAL (test code = 25 mmol/L 23-31 4638788023) AGAP (test code = 2-16 8889707098) BUN (test code = 37 mg/dL 7-23 H 2383927803) GLUCOSE (test code = 92 mg/dL 70-110 2646830856) CREATININE (test code = 2.66 mg/dL 0.60-1.25 H 1487012524) CALCIUM (test code = 7.9 mg/dL 8.6-10.6 L 3021595544) eGFR (test code = mL/min/1.73m2 4851084089) MILAD (test code = MILAD) Association of [...] tests). Lab Interpretation Abnormal (test code = 17741-1) [facility] CenterMAGNESIUM2021-04-19 11:18:03 Test Item Value Reference Range Interpretation Comments MAGNESIUM (test code = 0738606699) 1.9 mg/dL 1.7-2.4 Lab Interpretation (test code = Normal 24823-0) [facility] CenterN-TERMINAL [id number] 11:17:48 Test Item Value Reference Range Interpretation Comments NT-proBNP (test code 2960 pg/mL See_Comment H [Autom ated = 1852195932) message] The system which generated this result transmitted reference range : <=125. The reference range was not used to interpret this result as normal/abnormal . MILAD (test code = MILAD) Biotin has been reported to cause a negative bias, interpret results relative to patient's use of biotin. Lab Interpretation Abnormal (test code = 09162-8) [facility] WITH [id number] 10:41:54 Test Item Value Reference Range Interpretation [...] RDW-SD (test code = 44.0 fL 38.5-51.6 00925-0) RDW-CV (test code = 12.9 % 12.1-15.4 788-0) PLT (test code = See_Comment [Automated 777-3) message] The sy stem which generated this result transmitted reference range : 150 - 328 10*3/ ?L. The reference r taye was not used to interpret this result as normal/abnormal . MPV (test code = 10.2 fL 9.8-13.0 48933-0) NRBC/100 WBC (test See_Comment [Automat ed code = [id number]) message] The system which generated this result transmitted reference range : 0.0 - 10.0 /100 WBCs. The refer ence range was not u sed to interpret th is result as normal/abnormal . NRBC x10^3 (test code <0.01 See_Comment [Auto mated = 3429290649) message] The s ystem which generated this result transmitted reference range : 10*3/?L. The reference range was not used to interpret this result as normal/abnormal . GRAN MAT (NEUT) % 57.3 % (test code = 770-8) IMM GRAN % (test code 0.90 % = 7957808890) LYMPH % (test code = 28.0 % 736-9) MONO % (test code = 9.8 % 5905-5) EOS % (test code = 3.4 % 713-8) BASO % (test code = 0.6 % 706-2) GRAN MAT x10^3(ANC) 4.82 10*3/uL 1.99-6.95 (test code = 2765437197) IMM GRAN x10^3 (test 0.08 10*3/uL 0.00-0.06 H code = 1897700902) LYMPH x10^3 (test code 2.36 10*3/uL 1.09-3.23 = 731-0) MONO x10^3 (test code 0.83 10*3/uL 0.36-1.02 = 742-7) EOS x10^3 (test code = 0.29 10*3/uL 0.06-0.53 711-2) BASO x10^3 (test code 0.05 10*3/uL 0.01-0.09 = 704-7) Lab Interpretation Abnormal (test code = 66076-0) [facility] GLUCOSE (AUTOMATED)2020-12-22 10:20:26 Test Item Value Reference Range Interpretation Comments POCT GLU (test code = 1674932872) 111 mg/dL 70-110 H Lab Interpretation (test code = Abnormal 11046-0) [facility] GLUCOSE (AUTOMATED)2020-12-22 10:20:26 Test Item Value Reference Range Interpretation Comments POCT GLU (test code = 9377807696) 264 mg/dL 70-110 H Lab Interpretation (test code = Abnormal 84346-4) [facility] GLUCOSE (AUTOMATED)2020-12-22 10:20:26 Test Item Value Reference Range Interpretation Comments POCT GLU (test code = 9562988181) 136 mg/dL 70-110 H Lab Interpretation (test code = Abnormal 15674-7) [facility] GLUCOSE (AUTOMATED)2020-12-22 08:46:30 Test Item Value Reference Range Interpretation Comments POCT GLU (test code = 5903371270) 99 mg/dL 70-110 Lab Interpretation (test code = Normal 26660-4) [facility] [id number] 08:09:55 Test Item Value Reference Range Interpretation Comments Fecal Leukocytes (test code = Negative Negative 7857922920) Lab Interpretation (test code = Normal 55353-8) [facility] [id number] 03:36:15COVID DMT InterpretationInterpretation/Recommendations: Molecular NAAT Tests for [...] COVID-19 testing the patient has had at [facility], including molecular NAAT testing (more commonly known as PCR testing and Rapid ID Now testing) and antibody testing. It does not take into account any testingthat a patient has had outside of the [facility] medical record. [facility] LABORATORY SERVICESCOVID [id number] Rapid ID NOW (no units) ? ? Date ? Value ? 12/18/2020 ? Not Detected ? ? ? 07/06/2020 ? Not Detected ? [facility]AT[facility] SERVICESUnSt[facility] CLOSTRIDIUM DIFFICILE [id number] 03:23:09 Test Item Value Reference Range Interpretation Comments Clostridioides (Clostridium) Negative Negative difficile (test code = 96450-2) Lab Interpretation (test code = Normal 08531-6) [facility]2020-12-22 01:12:06 Test Item Value Reference Range Interpretation Comments POCT GLU (test code = 1890213611) 144 mg/dL 70-110 H Lab Interpretation (test code = Abnormal 21144-4) [facility] CenterMYCOPLASMA PNEUMONIAE ANTIBODY, [id number] 19:47:10 Test Item Value Reference Range Interpretation [...] than 12 months post-infection. Perform ed By: [address] [id number] Director: Vangie Olivarez MD [Aut omated message] The sy stem which generated this result transmit flor reference range : <=0.76. The ref erence range was not u sed to interpret this result as normal/abnor mal. Lab Interpretation Abnormal (test code = 27405-4) [facility] CenterTROPONIN [id number] 15:57:04 Test Item Value Reference Range Interpretation Comments TROPONIN I (test 0.131 ng/mL See_Comment H [Automated code = 2428174493) message] The system which generated this result [...] ? Lab Interpretation Abnormal (test code = 61865-9) [facility]2020-12-21 13:04:56 Test Item Value Reference Range Interpretation Comments POCT GLU (test code = 2747434786) 72 mg/dL 70-110 Lab Interpretation (test code = Normal 74241-5) [facility] CenterN-TERMINAL [id number] 10:36:31 Test Item Value Reference Range Interpretation Comments NT-proBNP (test code 2710 pg/mL See_Comment H [Autom ated = 1627990193) message] The system which generated this result transmitted reference range : <=125. The reference range was not used to interpret this result as normal/abnormal . MILAD (test code = MILAD) Biotin has been reported to cause a negative bias, interpret results relative to patient's use of biotin. Lab Interpretation Abnormal (test code = 93330-0) [facility] CenterCOMP. METABOLIC PANEL (01405)2020-12-21 10:30:53 Test Item Value Reference Range Interpretation Comments NA (test code = 139 mmol/L 135-145 6935698215) K (test code = 3.7 mmol/L 3.5-5.0 1887918254) CL (test code = 110 mmol/L 98-108 H 1355785866) CO2 TOTAL (test code = 23 mmol/L 23-31 7822263409) AGAP (test code = 2-16 8712752170) BUN (test code = 32 mg/dL 7-23 H 5235677604) GLUCOSE (test code = 73 mg/dL 70-110 6775151054) CREATININE (test code = 2.88 mg/dL 0.60-1.25 H 6388692329) TOTAL BILI (test code = 0.3 mg/dL 0.1-1.1 3929771631) CALCIUM (test code = 8.0 mg/dL 8.6-10.6 L 1455562695) T PROTEIN (test code = 5.9 g/dL 6.3-8.2 L 3706090255) ALBUMIN (test code = 3.1 g/dL 3.5-5.0 L 5925451021) ALK PHOS (test code = 113 U/L 34-122 2191142437) ALTv (test code = 61 U/L 5-50 H 1742-6) AST(SGOT) (test code = 64 U/L 13-40 H 2051396010) eGFR (test code = mL/min/1.73m2 6940170224) MILAD (test code = MILAD) Association of [...] tests). Lab Interpretation Abnormal (test code = 37293-4) [facility] WITH [id number] 10:21:10 Test Item Value Reference Range Interpretation [...] RDW-SD (test code = 43.6 fL 38.5-51.6 55245-6) RDW-CV (test code = 12.7 % 12.1-15.4 788-0) PLT (test code = See_Comment [Automated 777-3) message] The sy stem which generated this result transmitted reference range : 150 - 328 10*3/ ?L. The reference r taye was not used to interpret this result as normal/abnormal . MPV (test code = 10.5 fL 9.8-13.0 48537-6) NRBC/100 WBC (test See_Comment [Automat ed code = 0659336171) message] The system which generated this result transmitted reference range : 0.0 - 10.0 /100 WBCs. The refer ence range was not u sed to interpret th is result as normal/abnormal . NRBC x10^3 (test code <0.01 See_Comment [Auto mated = 9407954952) message] The s ystem which generated this result transmitted reference range : 10*3/?L. The reference range was not used to interpret this result as normal/abnormal . GRAN MAT (NEUT) % 67.1 % (test code = 770-8) IMM GRAN % (test code 0.80 % = 5846747584) LYMPH % (test code = 20.7 % 736-9) MONO % (test code = 8.5 % 5905-5) EOS % (test code = 2.4 % 713-8) BASO % (test code = 0.5 % 706-2) GRAN MAT x10^3(ANC) 6.53 10*3/uL 1.99-6.95 (test code = 6267992568) IMM GRAN x10^3 (test 0.08 10*3/uL 0.00-0.06 H code = 8749391370) LYMPH x10^3 (test code 2.01 10*3/uL 1.09-3.23 = 731-0) MONO x10^3 (test code 0.83 10*3/uL 0.36-1.02 = 742-7) EOS x10^3 (test code = 0.23 10*3/uL 0.06-0.53 711-2) BASO x10^3 (test code 0.05 10*3/uL 0.01-0.09 = 704-7) Lab Interpretation Abnormal (test code = 67955-7) [facility] CenterVancomycin Trough Level - Draw more than 60 minutes before the 2015 dose.2020-12-21 04:03:35 Test Item Value Reference Range Interpretation Comments VANCO TROUGH (test code 11.2 ug/mL 10.0-20.0 = 2525933830) MILAD (test code = MILAD) Toxic Range: ?>20 ug/mL 15-20 ug/mL is recommended for severe infection or when Vancomycin JENNI is greater than or equal to 2. Lab Interpretation (test Normal code = 71791-6) [facility]PO[facility])2020-12-21 01:18:12 Test Item Value Reference Range Interpretation Comments POCT GLU (test code = 4048577487) 120 mg/dL 70-110 H Lab Interpretation (test code = Abnormal 75245-5) [facility] GLUCOSE (AUTOMATED)2020-12-20 21:53:29 Test Item Value Reference Range Interpretation Comments POCT GLU (test code = 3164604754) 91 mg/dL 70-110 Lab Interpretation (test code = Normal 30958-7) [facility] PTH CALCIUM [id number] 18:56:46 Test Item Value Reference Range Interpretation Comments PTH-INTACT (test code = 78.8 pg/mL 12.0-88.0 5380793051) PTH-CA Interpretation Furthe r clinical (test code = 8601223360) yosvany a needed for interpretation. CALCIUM (test code = 7.4 mg/dL 8.6-10.6 L 1949372813) Lab Interpretation (test Abnormal code = 89887-0) [facility] CenterURINE [id number] 18:36:28 Test Item Value Reference Range Interpretation Comments URINE CULTURE (test < 10,000 CFU/mL mixed code = 630-4) aerobic organisms - suggests endogenous microbial contamination [facility] GLUCOSE (AUTOMATED)2020-12-20 16:59:51 Test Item Value Reference Range Interpretation Comments POCT GLU (test code = 1825049714) 205 mg/dL 70-110 H Lab Interpretation (test code = Abnormal 88151-9) [facility] PTH CALCIUM [id number] 16:05:46 Test Item Value Reference Range Interpretation Comments PTH-INTACT (test code = 93.7 pg/mL 12.0-88.0 H 8621368607) PTH-CA Interpretation Furthe r clinical (test code = 5070145965) yosvany a needed for interpretation. CALCIUM (test code = 7.4 mg/dL 8.6-10.6 L 6006619900) Lab Interpretation (test Abnormal code = 60570-6) [facility] CenterOCCULT (GUAIAC) [id number] 15:34:59 Test Item Value Reference Range Interpretation Comments Occult (guaiac) Blood (test code = Negative Negative 2335-8) Lab Interpretation (test code = Normal 73498-9) [facility] GLUCOSE (AUTOMATED)2020-12-20 13:24:58 Test Item Value Reference Range Interpretation Comments POCT GLU (test code = 0527711450) 110 mg/dL 70-110 Lab Interpretation (test code = Normal 01064-4) [facility] CenterTROPONIN [id number] 13:12:25 Test Item Value Reference Range Interpretation Comments TROPONIN I (test 0.144 ng/mL See_Comment H [Automated code = 7516139504) message] The system which generated this result [...] ? Lab Interpretation Abnormal (test code = 21464-2) [facility] CenterN-TERMINAL [id number] 13:09:07 Test Item Value Reference Range Interpretation Comments NT-proBNP (test code 4140 pg/mL See_Comment H [Autom ated = 7857310928) message] The system which generated this result transmitted reference range : <=125. The reference range was not used to interpret this result as normal/abnormal . MILAD (test code = MILAD) Biotin has been reported to cause a negative bias, interpret results relative to patient's use of biotin. Lab Interpretation Abnormal (test code = 32396-8) [facility] CenterMAGNESIUM2021-04-17 13:03:46 Test Item Value Reference Range Interpretation Comments MAGNESIUM (test code = 0501822140) 2.0 mg/dL 1.7-2.4 Lab Interpretation (test code = Normal 17493-4) [facility] METABOLIC PANEL (79121)2020-12-20 13:03:45 Test Item Value Reference Range Interpretation Comments NA (test code = 134 mmol/L 135-145 L 2989056431) K (test code = 3.6 mmol/L 3.5-5.0 3493089377) CL (test code = 108 mmol/L 98-108 4528908653) CO2 TOTAL (test code = 23 mmol/L 23-31 3413974125) AGAP (test code = 2-16 2069689456) BUN (test code = 30 mg/dL 7-23 H 5171839115) GLUCOSE (test code = 118 mg/dL 70-110 H 7386746990) CREATININE (test code = 2.53 mg/dL 0.60-1.25 H 7014678956) TOTAL BILI (test code = 0.2 mg/dL 0.1-1.8 4250605750) CALCIUM (test code = 7.4 mg/dL 8.6-10.6 L 3582380802) T PROTEIN (test code = 5.0 g/dL 6.3-8.2 L 4918415240) ALBUMIN (test code = 2.4 g/dL 3.5-5.0 L 4604253463) ALK PHOS (test code = 81 U/L 34-122 5806872892) ALTv (test code = 19 U/L 5-50 1742-6) AST(SGOT) (test code = 34 U/L 13-40 3703142759) eGFR (test code = mL/min/1.73m2 5683726146) MILAD (test code = MILAD) Association of [...] tests). Lab Interpretation Abnormal (test code = 39019-0) [facility] CenterRENAL [id number] 13:03:45 Test Item Value Reference Range Interpretation Comments ALBUMIN (test code = 2.4 g/dL 3.5-5.0 L 7245950652) CALCIUM (test code = 7.4 mg/dL 8.6-10.6 L 8391416023) CO2 TOTAL (test code = 23 mmol/L 23-31 3195073841) CREATININE (test code = 2.53 mg/dL 0.60-1.25 H 7584032424) GLUCOSE (test code = 118 mg/dL 70-110 H 7412806228) K (test code = 3.6 mmol/L 3.5-5.0 2258108335) NA (test code = 134 mmol/L 135-145 L 5666270674) BUN (test code = 30 mg/dL 7-23 H 0796375127) PHOSPHORUS (test code = 4.2 mg/dL 2.5-5.0 1324905732) eGFR (test code = mL/min/1.73m2 1652538366) MILAD (test code = MILAD) Association of [...] tests). Lab Interpretation Abnormal (test code = 37108-6) [facility] CenterURIC [id number] 13:03:05 Test Item Value Reference Range Interpretation Comments URIC ACID (test code = 3914028949) 6.0 mg/dL 3.6-8.0 Lab Interpretation (test code = Normal 56181-0) [facility] WITH [id number] 12:24:44 Test Item Value Reference Range Interpretation Comments WBC (test code = See_Comment H [Automated 6290-2) message] The system which generated this result transmit flor reference range : 4.20 - 10.70 10*3/?L. The reference range was not used to interpret this result as normal/abnormal . RBC (test code = See_Comment L [Automated 109-8) message] The system which generated this result [...] RDW-SD (test code = 44.6 fL 38.5-51.6 96960-4) RDW-CV (test code = 13.1 % 12.1-15.4 788-0) PLT (test code = See_Comment [Automated 777-3) message] The system which generated this result transmit flor reference range : 150 - 328 10*3/ ?L. The reference range was not u sed to interpret th is result as normal/abnormal . MPV (test code = 10.7 fL 9.8-13.0 98784-1) NRBC/100 WBC (test See_Comment [Automat ed code = 8841299509) message] The system which generated this result transmit flor reference range : 0.0 - 10.0 /100 WBCs. The reference range was not used to interpret this result as normal/abnormal . NRBC x10^3 (test code <0.01 See_Comment [Auto mated = 3209090780) message] The system which generated this result transmit flor reference range : 10*3/?L. The reference range was not used to interpret this result as normal/abnormal . GRAN MAT (NEUT) % 77.1 % (test code = 770-8) IMM GRAN % (test code 0.80 % = 5047251533) LYMPH % (test code = 13.0 % 736-9) MONO % (test code = 7.6 % 5905-5) EOS % (test code = 1.2 % 713-8) BASO % (test code = 0.3 % 706-2) GRAN MAT x10^3(ANC) 10.90 10*3/uL 1.99-6.95 H (test code = 2665723746) IMM GRAN x10^3 (test 0.12 10*3/uL 0.00-0.06 H code = 4850306652) LYMPH x10^3 (test code 1.84 10*3/uL 1.09-3.23 = 731-0) MONO x10^3 (test code 1.07 10*3/uL 0.36-1.02 H = 742-7) EOS x10^3 (test code = 0.17 10*3/uL 0.06-0.53 711-2) BASO x10^3 (test code 0.04 10*3/uL 0.01-0.09 = 704-7) Lab Interpretation Abnormal (test code = 75382-8) [facility]2020-12-20 01:44:16 Test Item Value Reference Range Interpretation Comments POCT GLU (test code = 9129932103) 112 mg/dL 70-110 H Lab Interpretation (test code = Abnormal 35111-4) [facility] CenterURIC [id number] 00:30:35 Test Item Value Reference Range Interpretation Comments URIC ACID (test code = 2586700753) 6.2 mg/dL 3.6-8.0 Lab Interpretation (test code = Normal 22119-6) [facility] CenterDIFF CONSULT [id number] 23:05:11 LEUKOCYTOSIS WITH ABSOLUTE MONOCYTOSIS, ABSOLUTE TOXIC [...] IN NUMBER AND MORPHOLOGY WITH OCCASIONAL LARGE FORMS.[facility] CenterRESPIRATORY PANEL BY [id number] 22:03:14 Test Item Value Reference Range Interpretation Comments Adenovirus (test code = Negative Negative 34769-5) Coronavirus HKU1 (test Negative Negative code = 53372-9) Coronavirus NL63 (test Negative Negative code = 83082-9) Coronavirus 229E (test Negative Negative code = 00963-7) Coronavirus OC43 (test Negative Negative code = 01240-5) Human Metapneumovirus Negative Negative (test code = 57987-9) Human Negative Negative Rhinovirus/Enterovirus (test code = 01982-8) Influenza A (test code = Negative Negative 80110-0) Influenza B (test code = Negative Negative 67307-9) Parainfluenza Virus 1 Negative Negative (test code = 03620-6) Parainfluenza Virus 2 Negative Negative (test code = 74942-6) Parainfluenza Virus 3 Negative Negative (test code = 56008-9) Parainfluenza Virus 4 Negative Negative (test code = 89360-1) Respiratory Syncytial Negative Negative Virus (test code = 31908-0) Bordetella parapertussis Negative Negative (test code = 35287-4) Bordetella pertussis Negative Negative (test code = 69621-5) Chlamydia pneumoniae Negative Negative (test code = 44349-6) Mycoplasma pneumoniae Negative Negative (test code = 77472-3) MILAD (test code = MILAD) Negative:A negative result does not rule-out infection. ?This assay does not test for all potential infectious agents. ? Positive:A positive test result does not necessarily indicate the presence of viable organism. ? Lab Interpretation (test Normal code = 10490-4) [facility]PO[facility])2020-12-19 21:25:26 Test Item Value Reference Range Interpretation Comments POCT GLU (test code = 0105739661) 76 mg/dL 70-110 Lab Interpretation (test code = Normal 43473-0) [facility] B SURFACE [id number] 21:22:20 Test Item Value Reference Range Interpretation Comments HBsAB (test code = Negative 7975140537) HBsAb mIU/mL Semi-Quantitative (test code = 9662436593) MILAD (test code = Interpretation: MILAD) ?Hepatitis B Surface Antibody ? Negative - Patient is considered to be not immune to infection with HBV. ? ? Positive - Anti-HBs detected at greater than or equal to 12 mIU/mL. ?Patient is considered to be immune to infection with HBV. ? [facility] CenterHCV [id number] 21:22:20 Test Item Value Reference Range Interpretation Comments HCV Ab (test code = 53366-0) Negative HCV Semi-Quantitative (test code = 90407-1) [facility] B SURFACE [id number] 21:05:17 Test Item Value Reference Range Interpretation Comments HBsAg Semi-Quantitative (test code = Negative Negative 5195-3) [facility] CenterOSMOLALITY, SERUM OR [id number] 20:10:08 Test Item Value Reference Range Interpretation Comments OSMOLALITY (test code = See_Comment [Au tomated message] 1268647574) The system [employer] generated this result transmitted ref erence range: 278 - 30 5 mOsm/kg. The re ference range was not u sed to interpret this result as normal/abnor mal. Lab Interpretation (test Normal code = 80808-6) [facility] CenterHIV 1/2 AG-AB WITH [id number] 19:04:05 Test Item Value Reference Range Interpretation Comments HIV Negative Negative Semi-quantitative (test code = 26666-4) MILAD (test code = Non-reactive for HIV-1 MILAD) antigen and HIV-1/HIV-2 antibodies. ?No laboratory evidence of HIV infection. ?Repeat in 2-4 weeks if acute HIV infection is suspected. [facility] CenterTROPONIN [id number] 18:36:58 Test Item Value Reference Range Interpretation Comments TROPONIN I (test 0.170 ng/mL See_Comment H [Automated code = 4564005856) message] The system which generated this result [...] ? Lab Interpretation Abnormal (test code = 05363-6) [facility] CenterLEGIONELLA URINARY ANTIGEN [id number] 17:24:46 Test Item Value Reference Range Interpretation Comments Legionella Urinary Negative Negative Antigen (test code = 4332050997) MILAD (test code = MILAD) Negative for [...] test. Lab Interpretation (test Normal code = 75109-7) [facility] CenterPNEUMOCOCCAL [id number] 17:24:46 Test Item Value Reference Range Interpretation Comments S. pneumoniae antigen (test code = Negative Negative 9247730306) Lab Interpretation (test code = Normal 06505-9) [facility]PO[facility]SE (AUT[facility]ATED)2020-12-19 17:15:16 Test Item Value Reference Range Interpretation Comments POCT GLU (test code = 4626354314) 91 mg/dL 70-110 Lab Interpretation (test code = Normal 50021-9) [facility] CenterVITAMIN B12, [id number] 17:06:42 Test Item Value Reference Range Interpretation Comments VIT B12 (test code = 242 pg/mL 240-930 6758513647) MILAD (test code = MILAD) Biotin has been reported to cause a positive bias, interpret results relative to patient's use of biotin. Lab Interpretation (test Normal code = 93671-0) [facility] CenterPROCALCITONIN2021-04-16 16:47:54 Test Item Value Reference Range Interpretation Comments Procalcitonin (test 0.68 ng/mL <0.07 H code = 6503149072) MILAD (test code = MILAD) INTERPRETATION OF [...] lung abscess/empyema. For further information please refer to:[email or web address] Lab Interpretation Abnormal (test code = 88567-5) [facility] CenterVITAMIN D, [id number] 16:36:45 Test Item Value Reference Range Interpretation Comments VIT D 25OH (test code = <13 25-80 L 42056-7) MILAD (test code = MILAD) Deficiency: <20 ng/mLInsufficiency: 20-24 ng/mLOptimal: 25-80 ng/mL Lab Interpretation (test Abnormal code = 76553-9) [facility] CenterPOTASSIUM, URINE [id number] 16:17:47 Test Item Value Reference Range Interpretation Comments K URINE (test code = 4869913521) 35.1 mmol/L [facility] CenterOSMOLALITY [id number] 16:13:28 Test Item Value Reference Range Interpretation Comments OSMO U (test code = See_Comment [Automa flor message] 6980524670) The system [employer] generated this result transmitted ref erence range: 50-1,100 mOsm/kg. The re ference range was not u sed to interpret this result as normal/abnor mal. Lab Interpretation (test Normal code = 60242-2) [facility] CenterURIC [id number] 15:25:19 Test Item Value Reference Range Interpretation Comments URIC ACID (test code = 5667133015) 6.2 mg/dL 3.6-8.0 Lab Interpretation (test code = Normal 32933-7) [facility] CenterCREATINE [id number] 15:25:04 Test Item Value Reference Range Interpretation Comments CK (test code = 8738728056) 206 U/L 33-194 H Lab Interpretation (test code = Abnormal 75072-4) [facility] CenterFERRITIN [id number] 15:15:20 Test Item Value Reference Range Interpretation Comments FERRITIN (test code = 1300.0 ng/mL 18.0-464.0 H 1053183026) MILAD (test code = MILAD) Biotin has been reported to cause a negative bias, interpret results relative to patient's use of biotin. Lab Interpretation (test Abnormal code = 62162-7) [facility] CenterPROTEIN CREAT RATIO URINE [id number] 15:14:34 Test Item Value Reference Range Interpretation Comments T. PROT U (test >1000 mg/dL UPRO approxi mately 1049 code = 2888-6) mg/dL with ex tended dilution. CREAT U (test code 39.4 mg/dL = 7884551383) Protein/Creatinine Unable to calculate Ratio Urine (test because, e ither urine code = 6077558663) total pro tein, urine creatinine, or both are greater than th e linearity of th e analyzer. [facility] CenterXR CHEST 1 [id number] 13:11:07 Pulmonary vascular congestion. Preliminary Report Dictated [...] jointosteoarthrosis. No acute osseous abnormality is identified. [facility], Radiant Results Inft User - 12/19/2020 8:12 [...] reviewed this study and agree withthe above report.[facility] CenterPOCT GLUCOSE (AUTOMATED)2020-12-19 12:54:56 Test Item Value Reference Range Interpretation Comments POCT GLU (test code = 7778623705) 99 mg/dL 70-110 Lab Interpretation (test code = Normal 41828-5) [facility] WITH [id number] 11:52:47 Test Item Value Reference Range Interpretation [...] RDW-SD (test code = 43.5 fL 38.5-51.6 47154-8) RDW-CV (test code = 12.9 % 12.1-15.4 788-0) PLT (test code = See_Comment [Automated 777-3) message] The system which generated this result transmit flor reference range : 150 - 328 10*3/ ?L. The reference range was not u sed to interpret th is result as normal/abnormal . MPV (test code = 10.6 fL 9.8-13.0 33716-4) NRBC/100 WBC (test See_Comment [Automat ed code = 8596158956) message] The system which generated this result transmit flor reference range : 0.0 - 10.0 /100 WBCs. The reference range was not used to interpret this result as normal/abnormal . NRBC x10^3 (test code <0.01 See_Comment [Auto mated = 3661321753) message] The system which generated this result transmit flor reference range : 10*3/?L. The reference range was not used to interpret this result as normal/abnormal . GRAN MAT (NEUT) % 80.1 % (test code = 770-8) IMM GRAN % (test code 1.10 % = 1957716752) LYMPH % (test code = 8.3 % 736-9) MONO % (test code = 10.0 % 5905-5) EOS % (test code = 0.1 % 713-8) BASO % (test code = 0.4 % 706-2) GRAN MAT x10^3(ANC) 16.52 10*3/uL 1.99-6.95 H (test code = 6315054988) IMM GRAN x10^3 (test 0.22 10*3/uL 0.00-0.06 H code = 8147296098) LYMPH x10^3 (test code 1.71 10*3/uL 1.09-3.23 = 731-0) MONO x10^3 (test code 2.06 10*3/uL 0.36-1.02 H = 742-7) EOS x10^3 (test code = <0.03 0.06-0.53 L 711-2) BASO x10^3 (test code 0.08 10*3/uL 0.01-0.09 = 704-7) REACT LYMPHS (test Rare code = 7676184085) Lab Interpretation Abnormal (test code = 30028-6) [facility] CenterCOMP. METABOLIC PANEL (73870)2020-12-19 11:43:36 Test Item Value Reference Range Interpretation Comments NA (test code = 135 mmol/L 135-145 3388638086) K (test code = 3.6 mmol/L 3.5-5.0 3745386014) CL (test code = 108 mmol/L 98-108 5699283320) CO2 TOTAL (test code = 22 mmol/L 23-31 L 2854820079) AGAP (test code = 2-16 5248702956) BUN (test code = 28 mg/dL 7-23 H 4384932347) GLUCOSE (test code = 84 mg/dL 70-110 8018113451) CREATININE (test code = 2.29 mg/dL 0.60-1.25 H 0470340538) TOTAL BILI (test code = 0.5 mg/dL 0.1-1.4 3613799200) CALCIUM (test code = 7.9 mg/dL 8.6-10.6 L 5957919306) T PROTEIN (test code = 5.3 g/dL 6.3-8.2 L 7911927479) ALBUMIN (test code = 2.7 g/dL 3.5-5.0 L 9306159540) ALK PHOS (test code = 78 U/L 34-122 6964417537) ALTv (test code = 12 U/L 5-50 1742-6) AST(SGOT) (test code = 23 U/L 13-40 2650645344) eGFR (test code = mL/min/1.73m2 4200701261) MILAD (test code = MILAD) Association of [...] tests). Lab Interpretation Abnormal (test code = 45318-8) [facility] CenterPROTHROMBIN TIME / [id number] 11:43:16 Test Item Value Reference Range Interpretation [...] tions. Lab Interpretation (test Normal code = 32783-3) [facility] CenterTROPONIN [id number] 11:36:37 Test Item Value Reference Range Interpretation Comments TROPONIN I (test 0.110 ng/mL See_Comment H [Automated code = 7312051617) message] The system which generated this result [...] ? Lab Interpretation Abnormal (test code = 53849-5) [facility]SEDIMENTATION [id number] 11:34:16 Test Item Value Reference Range Interpretation Comments ESR (test code = See_Comment H [Automated message] 5685456376) The system [employer] generated this result transmitted ref erence range: 0 - 10 m m/HR. The reference r taye was not used to interpret this result as normal/abnor mal. Lab Interpretation (test Abnormal code = 21915-3) [facility] CenterN-TERMINAL [id number] 11:33:20 Test Item Value Reference Range Interpretation Comments NT-proBNP (test code 5120 pg/mL See_Comment H [Autom ated = 1951554230) message] The system which generated this result transmitted reference range : <=125. The reference range was not used to interpret this result as normal/abnormal . MILAD (test code = MILAD) Biotin has been reported to cause a negative bias, interpret results relative to patient's use of biotin. Lab Interpretation Abnormal (test code = 43655-2) [facility] CenterMAGNESIUM2021-04-16 11:31:59 Test Item Value Reference Range Interpretation Comments MAGNESIUM (test code = 1151761446) 2.0 mg/dL 1.7-2.4 Lab Interpretation (test code = Normal 71529-7) [facility] CenterURIC [id number] 11:31:39 Test Item Value Reference Range Interpretation Comments URIC ACID (test code = 7063932810) 6.2 mg/dL 3.6-8.0 Lab Interpretation (test code = Normal 38412-4) [facility] CenterIRON [id number] 11:31:38 Test Item Value Reference Range Interpretation Comments IRON (test code = 9024387567) 19 ug/dL 50-160 L TIBC (test code = 6431298812) 162 ug/dL 250-410 L % FE SAT (test code = 9645373139) 12 % 20-50 L Lab Interpretation (test code = Abnormal 58965-7) [facility] CenterLIPASE2021-04-16 11:29:57 Test Item Value Reference Range Interpretation Comments LIPASE (test code = 4005214592) 18 U/L 0-220 Lab Interpretation (test code = Normal 46734-5) [facility] CenterLIPID PANEL (99922)(TOTAL CHOLESTEROL, TRIGLYCERIDES, HDL)2020-12-19 11:22:56 Test Item Value Reference Range Interpretation Comments CHOL (test code = 238 mg/dL 120-200 H 4812624906) HDL (test code = 69 mg/dL >40 8090806037) HDLC RATIO (test code = See_Comment [Au tomated message] 2804250274) The system [employer] generated this result transmit flor reference range : <=5.0. The refe rence range was not u sed to interpret th is result as normal/abnormal . TRIG (test code = 131 mg/dL 30-170 3191907903) LDL CHOL (test code = 143 mg/dL See_Comment [Auto mated message] 34797-6) The system [employer] generated this result transmit flor reference range : <=160. The refe rence range was not u sed to interpret th is result as normal/abnormal . VLDL (test code = 26 mg/dL 5-60 6094451035) Lab Interpretation (test Abnormal code = 57681-6) [facility] CenterSODIUM, URINE [id number] 11:18:17 Test Item Value Reference Range Interpretation Comments NA URINE (test code = 2949773912) 68 mmol/L [facility] CenterAC[facility] VENOUS BLOOD [id number] 09:54:21 Test Item Value Reference Range Interpretation Comments PH (test code = 7.32-7.42 1257662791) PCO2 BLANCA (test code = See_Comment L [Auto mated message] 3123852487) The system [employer] generated this result transmitted ref erence range: 41 - 51 mmHg. The reference r taye was not used to interpret this result as normal/abnor mal. PO2 BLANCA (test code = See_Comment HH [Autom ated message] 8648520562) The system [employer] generated this result transmitted ref erence range: 25 - 40 mmHg. The reference r taye was not used to interpret this result as normal/abnor mal. HCO3 BLANCA (test code = See_Comment L [Auto mated message] 0357929527) The system [employer] generated this result transmitted ref erence range: 24 - 28 mEq/L. The reference r taye was not used to interpret this result as normal/abnor mal. AC VBE(BEAKER) (test mEq/L code = 0192546759) Lab Interpretation (test Abnormal code = 16678-8) [facility] CenterGLYCOSYLATED HEMOGLOBIN (A1C)2020-12-19 06:37:05 Test Item Value Reference Range Interpretation Comments HGB A1C (test code = 9.8 % 4.0-5.7 H 4548-4) MILAD (test code = MILAD) Reference RangesNormal: <5.7%Prediabetes: 5.7 - 6.4%Diabetes: > 6.5% Lab Interpretation (test Abnormal code = 14712-4) [facility] CenterTHYROID STIMULATING [id number] 05:27:05 Test Item Value Reference Range Interpretation Comments TSH (test code = See_Comment [Automated message] 0070223562) The system [employer] generated this result transmitted ref erence range: 0.45 - 4 .70 mIU/L. The refe rence range was not u sed to interpret this result as normal/abnor mal. Lab Interpretation (test Normal code = 20119-0) [facility] CenterMAGNESIUM2021-04-16 04:55:48 Test Item Value Reference Range Interpretation Comments MAGNESIUM (test code = 7313324663) 2.0 mg/dL 1.7-2.4 Lab Interpretation (test code = Normal 25530-7) [facility] CenterPHOSPHORUS2021-04-16 04:55:48 Test Item Value Reference Range Interpretation Comments PHOSPHORUS (test code = 5883018613) 4.1 mg/dL 2.5-5.0 Lab Interpretation (test code = Normal 63768-6) [facility] CenterURIC [id number] 04:55:48 Test Item Value Reference Range Interpretation Comments URIC ACID (test code = 6340917987) 6.4 mg/dL 3.6-8.0 Lab Interpretation (test code = Normal 48834-1) [facility] CenterCREATINE [id number] 04:55:07 Test Item Value Reference Range Interpretation Comments CK (test code = 5201020011) 233 U/L 33-194 H Slight hemolysis Lab Interpretation (test Abnormal code = 33070-0) [facility] CenterLIPASE2021-04-16 04:39:28 Test Item Value Reference Range Interpretation Comments LIPASE (test code = 7755578588) 19 U/L 0-220 Lab Interpretation (test code = Normal 02378-4) [facility] CenterCT ABDOMEN PELVIS W [id number] 03:48:13 Multiple coarse calcifications throughout the pancreatic [...] with urinalysiscould be considered. RL: 460 AFC: [id number] Ordering physician: THIERRY AUSTIN Indication: Generalized abdominal [...] - 12/18/2020 10:49 PM CDTOrdering physician: THIERRY MENDOZARIMAIndication: Generalized abdominal pain, history of lymphoma, leukocytosisCOMPARISON: [...] and correlation with urinalysiscould be considered.RL: 460AF: 81636 [facility] WITH [id number] 00:52:21 Test Item Value Reference Range Interpretation [...] RDW-SD (test code = 43.3 fL 38.5-51.6 10707-8) RDW-CV (test code = 12.9 % 12.1-15.4 788-0) PLT (test code = See_Comment [Automated 777-3) message] The system which generated this result transmit flor reference range : 150 - 328 10*3/ ?L. The reference range was not u sed to interpret th is result as normal/abnormal . MPV (test code = 10.6 fL 9.8-13.0 99974-0) NRBC/100 WBC (test See_Comment [Automat ed code = 3785460397) message] The system which generated this result transmit flor reference range : 0.0 - 10.0 /100 WBCs. The reference range was not used to interpret this result as normal/abnormal . NRBC x10^3 (test code <0.01 See_Comment [Auto mated = 4075807028) message] The system which generated this result transmit flor reference range : 10*3/?L. The reference range was not used to interpret this result as normal/abnormal . GRAN MAT (NEUT) % 81.7 % (test code = 770-8) IMM GRAN % (test code 1.70 % = 3795517257) LYMPH % (test code = 7.0 % 736-9) MONO % (test code = 9.2 % 5905-5) EOS % (test code = 0.1 % 713-8) BASO % (test code = 0.3 % 706-2) GRAN MAT x10^3(ANC) 20.35 10*3/uL 1.99-6.95 H (test code = 1820721282) IMM GRAN x10^3 (test 0.42 10*3/uL 0.00-0.06 H code = 9457614561) LYMPH x10^3 (test code 1.73 10*3/uL 1.09-3.23 = 731-0) MONO x10^3 (test code 2.28 10*3/uL 0.36-1.02 H = 742-7) EOS x10^3 (test code = 0.03 10*3/uL 0.06-0.53 L 711-2) BASO x10^3 (test code 0.08 10*3/uL 0.01-0.09 = 704-7) Lab Interpretation Abnormal (test code = 13040-2) [facility] CenterMARISSA [id number] 00:26:33 Test Item Value Reference Range Interpretation Comments TROPONIN I (test 0.047 ng/mL See_Comment H [Automated code = 2973763377) message] The system which generated this result [...] ? Lab Interpretation Abnormal (test code = 96005-7) [facility] CenterN-TERMINAL [id number] 00:23:14 Test Item Value Reference Range Interpretation Comments NT-proBNP (test code 4530 pg/mL See_Comment H [Autom ated = 7459253991) message] The system which generated this result transmitted reference range : <=125. The reference range was not used to interpret this result as normal/abnormal . MILAD (test code = MILAD) Biotin has been reported to cause a negative bias, interpret results relative to patient's use of biotin. Lab Interpretation Abnormal (test code = 02768-2) [facility] CenterCOMP. METABOLIC PANEL (34493)2020-12-19 00:14:12 Test Item Value Reference Range Interpretation Comments NA (test code = 130 mmol/L 135-145 L 4764564876) K (test code = 4.7 mmol/L 3.5-5.0 8019096047) CL (test code = 104 mmol/L 98-108 9349535264) CO2 TOTAL (test code = 20 mmol/L 23-31 L 1603130535) AGAP (test code = 2-16 7082900305) BUN (test code = 32 mg/dL 7-23 H 7082917581) GLUCOSE (test code = 186 mg/dL 70-110 H 2703984848) CREATININE (test code = 2.29 mg/dL 0.60-1.25 H 6861911057) TOTAL BILI (test code = 0.8 mg/dL 0.1-1.0 3900841284) CALCIUM (test code = 7.9 mg/dL 8.6-10.6 L 7101377308) T PROTEIN (test code = 6.4 g/dL 6.3-8.2 1779064197) ALBUMIN (test code = 3.4 g/dL 3.5-5.0 L 7886408705) ALK PHOS (test code = 85 U/L 34-122 9041937867) ALTv (test code = 17 U/L 5-50 1742-6) AST(SGOT) (test code = 29 U/L 13-40 8688462327) eGFR (test code = mL/min/1.73m2 0286060566) MILAD (test code = MILAD) Association of [...] tests). Lab Interpretation Abnormal (test code = 21156-8) [facility] CenterCOVID-19 (ID NOW RAPID TESTING)2020-12-19 00:11:14 Test Item Value Reference Range Interpretation Comments SARS-CoV-2 Rapid ID NOW Not Detected Not Detected (test code = 56978-6) MILAD (test code = MILAD) ID NOW COVID-19 Assay is an isothermal nucleic acid amplification test intended for the qualitative detection of nucleic acid from SARS-CoV-2 viral RNA in nasopharyngeal (PROGRAM SPECIALIST) specimens. It is used under Emergency Use [...] indicated. Lab Interpretation Normal (test code = 98753-3) [facility] CenterURINALYSIS2021-04-16 00:03:38 Test Item Value Reference Range Interpretation Comments APPEARANCE (test code = Clear Clear 4516832327) COLOR (test code = Yellow Yellow 0377618720) PH (test code = 4.8-8.0 2920057428) SP GRAVITY (test code = 1.003-1.030 7602888542) GLU U QUAL (test code = 500 mg/dL Normal A 1369328079) BLOOD (test code = 1+ Negative A 4623820370) KETONES (test code = Negative Negative 1081422882) PROTEIN (test code = 500 mg/dL Negative A 2887-8) UROBILIN (test code = Normal Normal 7847336195) BILIRUBIN (test code = Negative Negative 2989348281) NITRITE (test code = Negative Negative 6307221954) LEUK WARREN (test code = Negative Negative 3093860303) RBC/HPF (test code = See_Comment H [Autom ated message] 1498736793) The system [employer] generated this result transmit flor reference range : 0 - 3 HPF. The refe rence range was not u sed to interpret th is result as normal/abnormal . WBC/HPF (test code = See_Comment H [Autom ated message] 1335011258) The system [employer] generated this result transmit flor reference range : 0 - 5 HPF. The refe rence range was not u sed to interpret th is result as normal/abnormal . BACTERIA (test code = Few Negative A 4220504403) MUCOUS (test code = Slight Negative LPF A 0910295931) SPERM (test code = See_Comment [Automat ed message] 5199530481) The system [employer] generated this result transmit flor reference range : <=1 HPF. The refere nce range was not u sed to interpret th is result as normal/abnormal . Lab Interpretation (test Abnormal code = 19813-1) [facility] CenterLadeic Acid Whole [id number] 23:52:54 Test Item Value Reference Range Interpretation Comments LACTIC ACID (test code = 1.11 mmol/L 0.50-2.20 7837101233) Lab Interpretation (test code = Normal 26330-2) [facility] GLUCOSE (AUTOMATED)2020-07-09 22:50:00 Test Item Value Reference Range Interpretation Comments POCT GLU (test code = 3672798582) 106 mg/dL 70-110 Lab Interpretation (test code = Normal 08602-3) [facility] CenterC3 [id number] 19:11:00 Test Item Value Reference Range Interpretation Comments C3 (test code = 2439379678) 105 mg/dL 86-184 Lab Interpretation (test code = Normal 75995-2) [facility] CenterC4 [id number] 19:11:00 Test Item Value Reference Range Interpretation Comments C4 (test code = 0794769213) 25 mg/dL 20-59 Lab Interpretation (test code = Normal 57963-2) [facility] GLUCOSE (AUTOMATED)2020-07-09 18:58:00 Test Item Value Reference Range Interpretation Comments POCT GLU (test code = 3338774583) 113 mg/dL 70-110 H Lab Interpretation (test code = Abnormal 44547-7) [facility] CenterHEPATITIS B SURFACE [id number] 18:29:00 Test Item Value Reference Range Interpretation Comments HBsAB (test code = Negative 0328862071) HBsAb mIU/mL Semi-Quantitative (test code = 6362026947) MILAD (test code = Interpretation: MILAD) ?Hepatitis B Surface Antibody ? Negative - Patient is considered to be not immune to infection with HBV. ? ? Positive - Anti-HBs detected at greater than or equal to 12 mIU/mL. ?Patient is considered to be immune to infection with HBV. ? [facility] CenterHBC ANTIBODY (IGM & IGG)2020-07-09 18:29:00 Test Item Value Reference Range Interpretation Comments HBC (test code = 7253294251) Negative HBC Semi-Quantitative (test code = 9934467068) [facility] CenterHCV [id number] 18:29:00 Test Item Value Reference Range Interpretation Comments HCV Ab (test code = 70704-7) Negative HCV Semi-Quantitative (test code = 87370-0) [facility] CenterHEPATITIS B SURFACE [id number] 18:10:00 Test Item Value Reference Range Interpretation Comments HBsAg Semi-Quantitative (test code = Negative Negative 5195-3) [facility] CenterINTACT PTH CALCIUM [id number] 15:56:00 Test Item Value Reference Range Interpretation Comments PTH-INTACT (test code = 29.6 pg/mL 6101032035) PTH-CA Interpretation Furthe r clinical (test code = 3584115847) yosvany a needed for interpretation. CALCIUM (test code = 8.5 mg/dL 8.6-10.6 L 6221724925) Lab Interpretation (test Abnormal code = 47314-3) [facility] CenterVancomycin Trough Level - Draw no more than 60 minutes before the 0900 dose.2020-07-09 15:09:00 Test Item Value Reference Range Interpretation Comments VANCO TROUGH (test code 12.4 ug/mL 10-20 = 1268483447) MILAD (test code = MILAD) Toxic Range: ?>20 ug/mL 15-20 ug/mL is recommended for severe infection or when Vancomycin JENNI is greater than or equal to 2. Lab Interpretation (test Normal code = 37997-2) [facility] GLUCOSE (AUTOMATED)2020-07-09 14:17:00 Test Item Value Reference Range Interpretation Comments POCT GLU (test code = 1330273457) 97 mg/dL 70-110 Lab Interpretation (test code = Normal 62295-2) [facility] GLUCOSE (AUTOMATED)2020-07-09 14:17:00 Test Item Value Reference Range Interpretation Comments POCT GLU (test code = 2236351138) 116 mg/dL 70-110 H Lab Interpretation (test code = Abnormal 53297-0) [facility] METABOLIC PANEL (NA, K, CL, CO2, GLUCOSE, BUN, CREATININE, CA)2020-07-09 13:02:00 Test Item Value Reference Range Interpretation Comments NA (test code = 136 mmol/L 135-145 2741804199) K (test code = 3.8 mmol/L 3.5-5 4870786561) CL (test code = 109 mmol/L 98-108 H 1052763450) CO2 TOTAL (test code = 23 mmol/L 23-31 0797812154) AGAP (test code = 2-16 5967223601) BUN (test code = 24 mg/dL 7-23 H 6627886154) GLUCOSE (test code = 117 mg/dL 70-110 H 2260941683) CREATININE (test code = 1.56 mg/dL 0.6-1.25 H 7801247978) CALCIUM (test code = 8.5 mg/dL 8.6-10.6 L 0777325394) eGFR Calculation mL/min/1.73m2 (Non-) (test code = 8018790197) eGFR Calculation mL/min/1.73m2 () (test code = 6098495295) MILAD (test code = MILAD) Association of [...] tests). Lab Interpretation Abnormal (test code = 88287-2) [facility] GLUCOSE (AUTOMATED)2020-07-08 22:45:00 Test Item Value Reference Range Interpretation Comments POCT GLU (test code = 4811116419) 183 mg/dL 70-110 H Lab Interpretation (test code = Abnormal 59848-3) [facility] GLUCOSE (AUTOMATED)2020-07-08 18:08:00 Test Item Value Reference Range Interpretation Comments POCT GLU (test code = 0551349753) 240 mg/dL 70-110 H Lab Interpretation (test code = Abnormal 03231-8) [facility] CenterVITAMIN D, [id number] 17:21:00 Test Item Value Reference Range Interpretation Comments VIT D 25OH (test code = <13 25-80 L 42900-4) MILAD (test code = MILAD) Deficiency: <20 ng/mLInsufficiency: 20-24 ng/mLOptimal: 25-80 ng/mL Lab Interpretation (test Abnormal code = 43739-6) [facility] GLUCOSE (AUTOMATED)2020-07-08 14:04:00 Test Item Value Reference Range Interpretation Comments POCT GLU (test code = 2448398997) 256 mg/dL 70-110 H Lab Interpretation (test code = Abnormal 56200-6) [facility] CenterBASI METABOLIC PANEL (NA, K, CL, CO2, GLUCOSE, BUN, CREATININE, CA)2020-07-08 12:04:00 Test Item Value Reference Range Interpretation Comments NA (test code = 133 mmol/L 135-145 L 4774674907) K (test code = 4.2 mmol/L 3.5-5 3022521884) CL (test code = 107 mmol/L 98-108 6806357495) CO2 TOTAL (test code = 23 mmol/L 23-31 9761441256) AGAP (test code = 2-16 9179411310) BUN (test code = 26 mg/dL 7-23 H 6741523138) GLUCOSE (test code = 241 mg/dL 70-110 H 5773888231) CREATININE (test code = 1.73 mg/dL 0.6-1.25 H 6823346748) CALCIUM (test code = 8.1 mg/dL 8.6-10.6 L 5266089929) eGFR Calculation mL/min/1.73m2 (Non-) (test code = 7174826985) eGFR Calculation mL/min/1.73m2 () (test code = 9515582462) MILAD (test code = MILAD) Association of [...] tests). Lab Interpretation Abnormal (test code = 21360-2) [facility] GLUCOSE (AUTOMATED)2020-07-07 22:50:00 Test Item Value Reference Range Interpretation Comments POCT GLU (test code = 3406697711) 177 mg/dL 70-110 H Lab Interpretation (test code = Abnormal 66551-0) [facility] CenterCT FOOT RIGHT WO [id number] 21:00:[address] evidence of osteomyelitis. Cellulitis [...] this study and agree with the abovereport. [facility] CenterPROTEIN CREAT RATIO URINE [id number] 19:40:00 Test Item Value Reference Range Interpretation Comments T. PROT U (test code = 457 mg/dL 2888-6) CREAT U (test code = 38.2 mg/dL 7958367785) Protein/Creatinine Ratio 0.0-2.0 H Urine (test code = 2833167495) MILAD (test code = MILAD) Random Urine Total Protein Reference Ranges Random Specimen: ? Less than 10 mg/dLFirst Morning Specimen: ? ?Less than 20 mg/dL ? Lab Interpretation (test Abnormal code = 04168-5) [facility] CenterPOCT GLUCOSE (AUTOMATED)2020-07-07 17:54:00 Test Item Value Reference Range Interpretation Comments POCT GLU (test code = 3370764860) 241 mg/dL 70-110 H Lab Interpretation (test code = Abnormal 36330-2) [facility] CenterUS RETROPERITONEAL [id number] 15:45:02 No hydronephrosis. Normal kidneys.US RETROPERITONEAL LIMITED [...] cortical thickness and echotexture.No hydronephrosis.IMPRESSIONNo hydronephrosis. Normal kidneys.[facility] CenterPOIA GLUCOSE (AUTOMATED)2020-07-07 13:50:00 Test Item Value Reference Range Interpretation Comments POCT GLU (test code = 2452416532) 219 mg/dL 70-110 H Lab Interpretation (test code = Abnormal 19180-8) [facility] Metabolic Panel (NA, K, CL, CO2, GLUCOSE, BUN, CREATININE, CA)2020-07-07 11:10:00 Test Item Value Reference Range Interpretation Comments NA (test code = 136 mmol/L 135-145 9693499905) K (test code = 3.8 mmol/L 3.5-5 5114944218) CL (test code = 108 mmol/L 98-108 4094826000) CO2 TOTAL (test code = 26 mmol/L 23-31 4814852360) AGAP (test code = 2-16 1076577619) BUN (test code = 24 mg/dL 7-23 H 7502028463) GLUCOSE (test code = 201 mg/dL 70-110 H 0642285717) CREATININE (test code = 1.70 mg/dL 0.6-1.25 H 9524418767) CALCIUM (test code = 8.0 mg/dL 8.6-10.6 L 8912883161) eGFR Calculation mL/min/1.73m2 (Non-) (test code = 7722098582) eGFR Calculation mL/min/1.73m2 () (test code = 9891471554) MILAD (test code = MILAD) Association of [...] tests). Lab Interpretation Abnormal (test code = 46378-4) [facility] with [id number] 10:55:00 Test Item Value Reference Range Interpretation Comments WBC (test code = See_Comment [Automated 3990-2) message] The sy stem which generated this result transmitted reference range : 4.20 - 10.70 10*3/?L. The reference range was not used to interpret this result as normal/abnormal . RBC (test code = See_Comment L [Automated 419-8) message] The sy stem which generated this [...] RDW-SD (test code = 41.2 fL 38.5-51.6 50238-3) RDW-CV (test code = 12.2 % 12.1-15.4 788-0) PLT (test code = See_Comment [Automated 777-3) message] The sy stem which generated this result transmitted reference range : 150 - 328 10*3/ ?L. The reference r taye was not used to interpret this result as normal/abnormal . MPV (test code = 10.3 fL 9.8-13 95020-2) NRBC/100 WBC (test See_Comment [Automat ed code = 0802610790) message] The system which generated this result transmitted reference range : 0.0 - 10.0 /100 WBCs. The refer ence range was not u sed to interpret th is result as normal/abnormal . NRBC x10^3 (test code <0.01 See_Comment [Auto mated = 4737871632) message] The s ystem which generated this result transmitted reference range : 10*3/?L. The reference range was not used to interpret this result as normal/abnormal . GRAN MAT (NEUT) % 54.7 % (test code = 770-8) IMM GRAN % (test code 0.40 % = 1352234133) LYMPH % (test code = 33.5 % 736-9) MONO % (test code = 8.7 % 5905-5) EOS % (test code = 2.3 % 713-8) BASO % (test code = 0.4 % 706-2) GRAN MAT x10^3(ANC) 4.20 10*3/uL 1.99-6.95 (test code = 9344168318) IMM GRAN x10^3 (test 0.03 10*3/uL 0-0.06 code = 2454654868) LYMPH x10^3 (test code 2.57 10*3/uL 1.09-3.23 = 731-0) MONO x10^3 (test code 0.67 10*3/uL 0.36-1.02 = 742-7) EOS x10^3 (test code = 0.18 10*3/uL 0.06-0.53 711-2) BASO x10^3 (test code 0.03 10*3/uL 0.01-0.09 = 704-7) Lab Interpretation Abnormal (test code = 65296-2) [facility] GLUCOSE (AUTOMATED)2020-07-07 02:39:00 Test Item Value Reference Range Interpretation Comments POCT GLU (test code = 9608748212) 190 mg/dL 70-110 H Lab Interpretation (test code = Abnormal 22770-8) [facility]PO[facility])2020-07-06 22:44:00 Test Item Value Reference Range Interpretation Comments POCT GLU (test code = 0220576518) 325 mg/dL 70-110 H Lab Interpretation (test code = Abnormal 68861-8) [facility] CenterGLYCOSYLATED HEMOGLOBIN (A1C)2020-07-06 19:14:00 Test Item Value Reference Range Interpretation Comments HGB A1C (test code = 11.3 % 4-6 H 4548-4) MILAD (test code = MILAD) %A1C (NGSP) Interpretation (ADA)4.8-5.6 ? ? Normal or (Non-Diabetic Range)5.7-6.4 ? ? Increased Risk (Pre-Diabetic)>6.5 ?Diabetes Indicated Lab Interpretation Abnormal (test code = 81122-0) [facility] CenterCOVID-19 (ID NOW RAPID TESTING)2020-07-06 17:22:00 Test Item Value Reference Range Interpretation Comments SARS-CoV-2 Rapid ID NOW Not Detected Not Detected (test code = 63806-8) MILAD (test code = MILAD) ID NOW COVID-19 Assay is an isothermal nucleic acid amplification test intended for the qualitative detection of nucleic acid from SARS-CoV-2 viral RNA in nasopharyngeal (PROGRAM SPECIALIST) specimens. It is used under Emergency Use [...] indicated. Lab Interpretation Normal (test code = 92774-3) [facility] CenterSEDIMENTATION [id number] 16:27:00 Test Item Value Reference Range Interpretation Comments ESR (test code = See_Comment H [Automated message] [id number]) The system [employer] generated this result transmitted ref erence range: 0 - 10 m m/HR. The reference r taye was not used to interpret this result as normal/abnor mal. Lab Interpretation (test Abnormal code = 87651-2) [facility] [id number] 16:24:26 Soft tissue swelling with no acute bony destruction or fracture identified. EXAM: XR FOOT 3+ VW RIGHT HISTORY: right 1&2 toe infection COMPARISON: None FINDINGS: Imaging of the right foot demonstrates diffuse diabetic type vascularcalcifications. No bony destructive change or acute fracture is pre sent.Calcaneal enthesophyte formation is seen. Forefoot soft tissue swelling is present. [facility], Radiant Results Inft User - 07/06/2020 10:25 AM CSTEXAM:XR FOOT 3+ VW RIGHTHISTORY:right 1&2 toe infection COMPARISON:NoneFINDINGS: Imaging of the right foot demonstrates diffuse diabetic type vascularcalcifications. No bony destructive change or acute fracture is present.Calcaneal enthesophyte formation is seen. Forefoot soft tissue swelling is present.IMPRESSIONSoft tissue swelling with no acute bonydestruction or fracture identified.[facility] (NA, K, CL, CO2, GLUCOSE, BUN, CREATININE, CA)2020-07-06 16:16:00 Test Item Value Reference Range Interpretation Comments NA (test code = 133 mmol/L 135-145 L [id number]) K (test code = 4.4 mmol/L 3.5-5 3748011472) CL (test code = 103 mmol/L 98-108 0269028009) CO2 TOTAL (test code = 27 mmol/L 23-31 0832520676) AGAP (test code = 2-16 2759207012) BUN (test code = 24 mg/dL 7-23 H 1919672517) GLUCOSE (test code = 338 mg/dL 70-110 H 2426348925) CREATININE (test code = 1.59 mg/dL 0.6-1.25 H 8865814790) CALCIUM (test code = 8.9 mg/dL 8.6-10.6 7712102348) eGFR Calculation mL/min/1.73m2 (Non-) (test code = 3700110097) eGFR Calculation mL/min/1.73m2 () (test code = 8959904840) MILAD (test code = MILAD) Association of [...] tests). Lab Interpretation Abnormal (test code = 93152-8) [facility] (ALB, T.PRO, BILI T, BU/BC, ALT, AST, ALK PHOS)2020-07-06 16:16:00 Test Item Value Reference Range Interpretation Comments TOTAL BILI (test code = 9922915576) 0.6 mg/dL 0.1-1.1 BILI UNCON (test code = 7252042478) 0.5 mg/dL 0.1-1.1 BILI CONJ (test code = 2669508224) 0.0 mg/dL 0-0.3 T PROTEIN (test code = 4357730181) 6.5 g/dL 6.3-8.2 ALBUMIN (test code = 4170238528) 3.2 g/dL 3.5-5 L ALK PHOS (test code = 3635434107) 121 U/L 34-122 ALTv (test code = 1742-6) 13 U/L 5-50 AST(SGOT) (test code = 1700444264) 19 U/L 13-40 Lab Interpretation (test code = Abnormal 07297-9) [facility] with [id number] 16:02:00 Test Item Value Reference Range Interpretation Comments WBC (test code = See_Comment H [Automated 4890-2) message] The sy stem which generated this [...] RDW-SD (test code = 40.8 fL 38.5-51.6 30945-4) RDW-CV (test code = 12.2 % 12.1-15.4 788-0) PLT (test code = See_Comment [Automated 777-3) message] The sy stem which generated this result transmitted reference range : 150 - 328 10*3/ ?L. The reference r taye was not used to interpret this result as normal/abnormal . MPV (test code = 10.0 fL 9.8-13 87933-0) NRBC/100 WBC (test See_Comment [Automat ed code = 9900970683) message] The system which generated this result transmitted reference range : 0.0 - 10.0 /100 WBCs. The refer ence range was not u sed to interpret th is result as normal/abnormal . NRBC x10^3 (test code <0.01 See_Comment [Auto mated = 4999317578) message] The s ystem which generated this result transmitted reference range : 10*3/?L. The reference range was not used to interpret this result as normal/abnormal . GRAN MAT (NEUT) % 73.9 % (test code = 770-8) IMM GRAN % (test code 0.60 % = 2709057486) LYMPH % (test code = 16.1 % 736-9) MONO % (test code = 7.1 % 5905-5) EOS % (test code = 1.8 % 713-8) BASO % (test code = 0.5 % 706-2) GRAN MAT x10^3(ANC) 7.99 10*3/uL 1.99-6.95 H (test code = 2091089743) IMM GRAN x10^3 (test 0.06 10*3/uL 0-0.06 code = 7590461974) LYMPH x10^3 (test code 1.74 10*3/uL 1.09-3.23 = 731-0) MONO x10^3 (test code 0.77 10*3/uL 0.36-1.02 = 742-7) EOS x10^3 (test code = 0.19 10*3/uL 0.06-0.53 711-2) BASO x10^3 (test code 0.05 10*3/uL 0.01-0.09 = 704-7) Lab Interpretation Abnormal (test code = 31547-5) [facility] CenterL[facility] Acid Whole [id number] 16:00:00 Test Item Value Reference Range Interpretation Comments LACTIC ACID (test code = 1.39 mmol/L 6671585292) [facility] Notes Date/Time Note Provider Source 2023-04-15 Formatting of this note might be differe nt from the original. Yola Hurtado RN [facility] 03:43:54-00:00 Awake, alert oriented X4, r espiratory even and unlabored,skin w/d color appropriate for race, moves all ext well, pt encouraged to follow up with pcp and or return as needed Pt given printed and verbal discharge instructions regarding Generalized Abd pain, , constipation, essential hypertension , patient verbralized understanding and signature obtained, patient denies any other concerns. Prescriptions provided Advised to seek medical attention for new/prolon ged/worsening of symptoms, No adverse reaction to meds given in ER noted up on discharge Pt taken to [facility] via personal wheelchair by famil y member Electronically signed by Yola Hurtado RN at 0 04/15/2023 3:46 AM CDT 2023-04-15 [facility] 03:28:40-00:00 Chris Chatman called and noti fied pt was ready for discharge and he stated he would be enroute. Electronically signed by Yola Hurtado RN at 0 04/15/2023 3:30 AM CDT 2023-04-14 Formatting of this note might be differe nt from the original. Meagan De La Rosa RN [facility] 23:32:38-00:00 Pt arrived via wheelchair wi th brother in law for constipation since Tuesday. Pt has had this problem before. Pt has taken dulcolax laxative, stool softener, and magnesium citrate without a BM. Pt is passing gas. Hx: Dialysis, CKD, L finger amputation recently 2023-04-14 [facility] 23:26:00-00:00 The patient was endorsed to me by Augusto. CT of the abdomen pelvis demonstrates constipation. He was given a enema here emergency department with no results. He is try multiple medications at home. I wr ote him a prescription for G oLytely. The patient will be discharged to follow- up. He can return for any questions or concerns. Matias Brown MD 04/15/23 [id number] 2022-12-02 PROCEDURE INFORMATION: ADDIS Troncoso ast 09:12:00-00:00 Exam: XR Chest Exam date and time: 12/02/2022 9:36 AM Age: 62 years old Clinical indication: Pre-operative exam; Cardiov ascular screening and respiratory screening exam; Additional info: Cou ghing/preoperative TECHNIQUE: Imaging protocol: Radiologic exam of the chest. Views: 2 views. COMPARISON: No relevant prior studies available. FINDINGS: Lungs: No focal airspace disease. Pleural spaces: No pleural effusion. No pneumoth orax. Heart/Mediastinum: Enlargement of the cardiomedi astinal silhouette. Bones/joints: Chronic left lateral rib fractures . No acute abnormality. IMPRESSION: No focal airspace disease. Bryan Ricci MD On 12/02/2022 12:33:24; [id number] 2022-12-02 PROCEDURE INFORMATION: Karyna mohamud 09:12:00-00:00 Exam: XR Chest Exam date and time: 12/02/2022 9:36 AM Age: 62 years old Clinical indication: Pre-operative exam; Cardiov ascular screening and respiratory screening exam; Additional info: Cou ghing/preoperative TECHNIQUE: Imaging protocol: Radiologic exam of the chest. Views: 2 views. COMPARISON: No relevant prior studies available. FINDINGS: Lungs: No focal airspace disease. Pleural spaces: No pleural effusion. No pneumoth orax. Heart/Mediastinum: Enlargement of the cardiomedi astinal silhouette. Bones/joints: Chronic left lateral rib fractures . No acute abnormality. IMPRESSION: No focal airspace disease. Bryan Ricci MD On 12/02/2022 12:33:24; [id number] 2022-12-02 PROCEDURE INFORMATION: Karyna mallory 09:12:00-00:00 Exam: XR Chest Exam date and time: 12/02/2022 9:36 AM Age: 62 years old Clinical indication: Pre-operative exam; Cardiov ascular screening and respiratory screening exam; Additional info: Cou ghing/preoperative TECHNIQUE: Imaging protocol: Radiologic exam of the chest. Views: 2 views. COMPARISON: No relevant prior studies available. FINDINGS: Lungs: No focal airspace disease. Pleural spaces: No pleural effusion. No pneumoth orax. Heart/Mediastinum: Enlargement of the cardiomedi astinal silhouette. Bones/joints: Chronic left lateral rib fractures . No acute abnormality. IMPRESSION: No focal airspace disease. Bryan Ricci MD On 12/02/2022 12:33:24; [id number] 2022-12-02 PROCEDURE INFORMATION: Karyna mallory 09:12:00-00:00 Exam: XR Chest Exam date and time: 12/02/2022 9:36 AM Age: 62 years old Clinical indication: Pre-operative exam; Cardiov ascular screening and respiratory screening exam; Additional info: Cou ghing/preoperative TECHNIQUE: Imaging protocol: Radiologic exam of the chest. Views: 2 views. COMPARISON: No relevant prior studies available. FINDINGS: Lungs: No focal airspace disease. Pleural spaces: No pleural effusion. No pneumoth orax. Heart/Mediastinum: Enlargement of the cardiomedi astinal silhouette. Bones/joints: Chronic left lateral rib fractures . No acute abnormality. IMPRESSION: No focal airspace disease. Bryan Ricci MD On 12/02/2022 12:33:24; [id number] 2022-12-02 PROCEDURE INFORMATION: Karyna mallory 09:12:00-00:00 Exam: XR Chest Exam date and time: 12/02/2022 9:36 AM Age: 62 years old Clinical indication: Pre-operative exam; Cardiov ascular screening and respiratory screening exam; Additional info: Cou ghing/preoperative TECHNIQUE: Imaging protocol: Radiologic exam of the chest. Views: 2 views. COMPARISON: No relevant prior studies available. FINDINGS: Lungs: No focal airspace disease. Pleural spaces: No pleural effusion. No pneumoth orax. Heart/Mediastinum: Enlargement of the cardiomedi astinal silhouette. Bones/joints: Chronic left lateral rib fractures . No acute abnormality. IMPRESSION: No focal airspace disease. Bryan Ricci MD On 12/02/2022 12:33:24; [id number] 2022-12-02 PROCEDURE INFORMATION: Karyna mallory 09:12:00-00:00 Exam: XR Chest Exam date and time: 12/02/2022 9:36 AM Age: 62 years old Clinical indication: Pre-operative exam; Cardiov ascular screening and respiratory screening exam; Additional info: Cou ghing/preoperative TECHNIQUE: Imaging protocol: Radiologic exam of the chest. Views: 2 views. COMPARISON: No relevant prior studies available. FINDINGS: Lungs: No focal airspace disease. Pleural spaces: No pleural effusion. No pneumoth orax. Heart/Mediastinum: Enlargement of the cardiomedi astinal silhouette. Bones/joints: Chronic left lateral rib fractures . No acute abnormality. IMPRESSION: No focal airspace disease. Bryan Ricci MD On 12/02/2022 12:33:24; [id number] 2022-12-02 PROCEDURE INFORMATION: ADDIS Troncoso mohamud 09:12:00-00:00 Exam: XR Chest Exam date and time: 12/02/2022 9:36 AM Age: 62 years old Clinical indication: Pre-operative exam; Cardiov ascular screening and respiratory screening exam; Additional info: Cou ghing/preoperative TECHNIQUE: Imaging protocol: Radiologic exam of the chest. Views: 2 views. COMPARISON: No relevant prior studies available. FINDINGS: Lungs: No focal airspace disease. Pleural spaces: No pleural effusion. No pneumoth orax. Heart/Mediastinum: Enlargement of the cardiomedi astinal silhouette. Bones/joints: Chronic left lateral rib fractures . No acute abnormality. IMPRESSION: No focal airspace disease. Bryan Ricci MD On 12/02/2022 12:33:24; [id number]
[2023-04-15] MEDS ORDERED: FLEET ENEMA ADULT PR ONE (11:59)
--- NOTE | 2023-04-15 13:01 | ER ---
Nurse's Notes [facility] Name: Velasquez Bautista Age: 62 yrs Sex: Male : 1960 Arrival Date: 04/15/2023 Time: 11:14 Bed 19 Private MD: Shirlene Art Diagnosis: Constipation Presentation: 04/15 11:27 Chief complaint: Constipation x 2 weeks, abdominal pain x 2 days. Coronavirus screen: hb At this time, the client does not indicate any symptoms associated with coronavirus-19. Ebola Screen: No symptoms or risks identified at this time. Initial Sepsis Screen: Does the patient meet any 2 criteria? No. Patient's initial sepsis screen is negative. Does the patient have a suspected source of infection? No. Patient's initial sepsis screen is negative. Risk Assessment: Do you want to hurt yourself or someone else? Patient reports no desire to harm self or others. Onset of symptoms was April 02, 2023. 11:27 Method Of Arrival: Ambulatory hb 11:27 Acuity: ALIS 3 hb Historical: - Allergies: 11:27 No Known Allergies; hb - PMHx: 11:27 diabetes mellitus; Hypercholesterolemia; Hypertensive disorder; Leukemia; hb - Immunization history:: Adult Immunizations up to date. - Social history:: Smoking status: Patient denies any tobacco usage or history of. Screenin:32 [facility] ED Fall Risk Assessment (Adult) History of falling in the last 3 months, ap3 including since admission Yes- fall prone (multiple falls) (3 pts) Confusion or Disorientation No (0 pts) Intoxicated or Sedated No (0 pts) Impaired Gait Yes (1 pt) Mobility Assist Device Used Yes (1 pt) Altered Elimination Yes (1 pt). Abuse screen: Denies threats or abuse. Nutritional screening: No deficits noted. Tuberculosis screening: No symptoms or risk factors identified. Assessment: 12:31 General: Appears uncomfortable, Behavior is calm, cooperative. Pain: Complains of pain ap3 in abdomen. Neuro: Level of Consciousness is awake, alert, obeys commands, Oriented to person, place, time. Cardiovascular: Patient's skin is warm and dry. Respiratory: Airway is patent Respiratory effort is even, unlabored, Respiratory pattern is regular, symmetrical. GI: Bowel sounds present X 4 quads. Reports lower abdominal pain, constipation. 12:33 General: patient on bedside commode. . ap3 Vital Signs: 11:28 BP 129 / 61; Resp 69; Temp 98.4(O); Pulse Ox 100% ; Weight 66.68 kg; Height 6 ft. 0 in. hb ; Pain 9/10; 11:28 Body Mass Index 19.94 (66.68 kg, 182.88 cm) hb 11:28 Pain Scale: Adult hb ED Course: 11:17 Patient arrived in ED. mr 11:17 Shirlene Art DO is Private Physician. mr 11:20 [facility] kb 11:20 Parker Vieira MD is Attending Physician. kb 11:27 Triage completed. hb 11:28 Arm band placed on. hb 11:32 Carmelina Dior, MERE is Primary Nurse. ap3 12:32 Patient has correct armband on for positive identification. Bed in low position. Call ap3 light in reach. Side rails up X 1. Adult w/ patient. Pulse ox on. NIBP on. 13:14 No provider procedures requiring assistance completed. Patient did not have IV access ap3 during this emergency room visit. 13:17 Provided Education on: medication. ap3 Administered Medications: 11:54 Drug: Fleet Enema KS 133 ml Route: KS; ap3 13:05 Follow up: Response: No adverse reaction ap3 13:14 Drug: Lactulose PO 20 grams Volume: 30 ml; Route: PO; ap3 13:14 Follow up: Response: Medication administered at discharge. ap3 13:14 Drug: Acetaminophen PO 1000 mg Route: PO; ap3 13:14 Follow up: Response: Medication administered at discharge. ap3 Medication: 13:17 VIS not applicable for this client. ap3 Outcome: 13:01 Discharge ordered by . kb 13:14 Discharged to home ambulatory, with family. ap3 13:14 Condition: stable 13:14 Discharge instructions given to patient, family, Instructed on discharge instructions, follow up and referral plans. medication usage, Demonstrated understanding of instructions, follow-up care, medications. 13:18 Patient left the ED. ap3 Signatures: Chasity Sol FNP-C FNP-Tomasz Velvet Chacon Monica Espitia RN RN Carmelina Dior RN RN ap3 Corrections: (The following items were deleted from the chart) 11:27 Chief complaint: Constipation x 2 weeks. hb hb 11: 11:28 Resp 69bpm; Pulse Ox 100%; Temp 98.4F Oral; 66.68 kg; Height 6 ft.; BMI: 19.9; hb Pain 05/15, Adult; hb
--- NOTE | 2023-04-15 13:01 | EDPHYS ---
Physician Documentation [facility] Name: Velasquez Bautista Age: 62 yrs Sex: Male : 1960 Arrival Date: 04/15/2023 Time: 11:14 Bed 19 Private MD: Shirlene Art ED Physician Parker Vieira HPI: 04/15 11:58 This 62 yrs old Male presents to ER via Ambulatory with complaints of kb Constipation. 11:58 The patient presents with abdominal pain. Onset: The symptoms/episode began/occurred 2 kb week(s) ago. The symptoms do not radiate. Associated signs and symptoms: Pertinent positives: constipation, Pertinent negatives: nausea and vomiting, fever. The symptoms are described as crampy. Modifying factors: The symptoms are alleviated by nothing, the symptoms are aggravated by nothing. Severity of pain: At its worst the pain was moderate in the emergency department the pain is unchanged. The patient has not experienced similar symptoms in the past. The patient has been recently seen by a physician: the ER physician, out of Town, yesterday. Pt reports constipation for 2 weeks. States he has been taking pain medication for recent surgery. Reports he is able to excrete small amounts of stool, but hasn't had a good bowel movement in 7 days. . Historical: - Allergies: 11:27 No Known Allergies; hb - PMHx: 11:27 diabetes mellitus; Hypercholesterolemia; Hypertensive disorder; Leukemia; hb - Immunization history:: Adult Immunizations up to date. - Social history:: Smoking status: Patient denies any tobacco usage or history of. ROS: 12:00 Constitutional: Negative for fever, chills, and weight loss. kb 12:00 Abdomen/GI: Positive for abdominal pain, constipation, Negative for nausea, vomiting, and diarrhea. 12:00 All other systems are negative. Exam: 12:00 Constitutional: This is a well developed, well nourished patient who is awake, alert, kb and in no acute distress. Head/Face: Normocephalic, atraumatic. ENT: Moist Mucous membranes Cardiovascular: Regular rate and rhythm with a normal S1 and S2. No gallops, murmurs, or rubs. No pulse deficits. Respiratory: Respirations even and unlabored. No increased work of breathing. Talking in full sentences Skin: Warm, dry with normal turgor. Normal color. MS/ Extremity: Pulses equal, no cyanosis. Neurovascular intact. Full, normal range of motion. Neuro: Awake and alert, GCS 15, oriented to person, place, time, and situation. Moves all extremities. Normal gait. 12:00 Abdomen/GI: Inspection: abdomen appears normal, Bowel sounds: normal, Palpation: abdomen is soft and non-tender, in all quadrants, Rectal exam: is unremarkable, fecal impaction, is not appreciated. Vital Signs: 11:28 BP 129 / 61; Resp 69; Temp 98.4(O); Pulse Ox 100% ; Weight 66.68 kg; Height 6 ft. 0 in. hb ; Pain 9/10; 11:28 Body Mass Index 19.94 (66.68 kg, 182.88 cm) hb 11:28 Pain Scale: Adult hb MDM: 11:20 Patient medically screened. kb 11:57 Differential diagnosis: constipation, fecal impaction. Data reviewed: vital signs, kb nurses notes. Test considered but Not performed: CT: CT scan considered, but pt had a scan last night, results reviewed. Historians other than the Patient: Family Member: brother in law. External Records Reviewed: Outside ED record: labs and CT scan performed at [facility] yesterday reviewed. No bowel obstruction. Large amount of stool. Care significantly affected by the following chronic conditions: Hypertension, Chronic Kidney Disease. Counseling: I had a detailed discussion with the patient and/or guardian regarding: the historical points, exam findings, and any diagnostic results supporting the discharge/admit diagnosis, the need for outpatient follow up, a family practitioner, to return to the emergency department if symptoms worsen or persist or if there are any questions or concerns that arise at home. 13:04 ED course: Pt did have a bowel movement. Family reports pt has taken lactulose in the kb past with good results. Will give a dose prior to discharge. Administered Medications: 11:54 Drug: Fleet Enema [place] 133 ml Route: [place]; ap3 13:05 Follow up: Response: No adverse reaction ap3 13:14 Drug: Lactulose PO 20 grams Volume: 30 ml; Route: PO; ap3 13:14 Follow up: Response: Medication administered at discharge. ap3 13:14 Drug: Acetaminophen PO 1000 mg Route: PO; ap3 13:14 Follow up: Response: Medication administered at discharge. ap3 Disposition: 12:05 I reviewed the patient's care provided by Advanced Practice Provider \T\ agree w/ the cp3 diagnosis \T\ care plan. I personally saw the pt \T\ performed a substantive portion of the visit, incldng all aspects of the (History/Exam/Medical Decision Making). Disposition Summary: 04/15/23 13:01 Discharge Ordered Location: Home kb Condition: Stable kb Diagnosis - Constipation kb Followup: kb - With: Emergency Department - When: As needed - Reason: Worsening of condition Followup: kb - With: Private Physician - When: 2 - 3 days - Reason: Recheck today's complaints, Continuance of care, Re-evaluation by your physician Discharge Instructions: - Discharge Summary Sheet kb - Constipation, Adult, [id number] kb Forms: - Medication Reconciliation Form kb - Thank You Letter kb - Antibiotic Education kb - Prescription Opioid Use kb - Patient Portal Instructions kb Signatures: Chaisty Sol, CHRISTOPHER OCHOA-Parker Coombs MD MD cp3 Monica Espitia, RN RN Carmelina Dior RN RN ap3
[2023-04-15] MEDS ORDERED: LACTULOSE 20 GM/30 ML UCUP ONE (13:17)
[2023-04-15] MEDS ORDERED: ACETAMINOPHEN 500 MG TAB ONE (13:24)
[2023-04-15 13:25] VITALS: BP 129/61; TEMP 98.4; O2SAT 100
== END 2023-04-15 13:18 | disposition home or self-care (01) ==
LOC: ER 11:14
DX: K59.00 Constipation, unspecified (principal); I10 Essential (primary) hypertension; E11.9 Type 2 diabetes mellitus without complications
CPT/HCPCS: 99283

== ENCOUNTER 2025-04-02 11:27 | Inpatient (IN) | payer OTHER ==
[2025-04-03 00:20] LABS: Sqamous Epithelial None Seen /HPF (None Seen); Urine Culture Reflex Order REFLEXED; Urine Microscopic Reflex YN ORDER UMIC; Urine WBC Clump Few /HPF (None Seen)
[2025-04-03] MEDS ORDERED: ONDANSETRON 4 MG (ODT) TAB PO PRN (00:31)
[2025-04-03] MEDS ORDERED: DOCUSATE NA 100 MG CAP PO PRN (00:31)
[2025-04-03] MEDS ORDERED: SENOSIDES 8.6 MG TAB PO PRN (00:44)
[2025-04-03] MEDS: HEPARIN 5000 UNIT/ML 1 ML VIAL SQ SCH ×3 (01:00→20:10)
[2025-04-03] MEDS ORDERED: CALCITROL 0.25 MCG CAP PO SCH (01:00)
[2025-04-03] MEDS ORDERED: METOPROLOL TAR 25 MG TAB PO SCH (06:00)
[2025-04-03] MEDS: PANTOPRAZOLE 40MG TABLET PO SCH (06:49)
[2025-04-03] MEDS: LEVOTHYROXINE SOD 0.025 MG TAB PO SCH (06:49)
[2025-04-03] MEDS: INSULIN REGULAR (HUMAN) 100 UNIT/ML SQ SCH (07:30)
[2025-04-03] MEDS: LIDOCAINE 4% PATCH TOP SCH (08:26)
[2025-04-03] MEDS: VITAMIN B COMPLEX 1 CAP PO SCH (08:26)
[2025-04-03] MEDS: CLOPIDOGREL 75 MG TABLET PO SCH (08:26)
[2025-04-03] MEDS: SENOSIDES 8.6 MG TAB PO SCH (08:26)
[2025-04-03] MEDS: FINASTERIDE 5 MG TAB PO SCH (08:27)
[2025-04-03] MEDS: HYDRALAZINE HCL 25 MG TABLET PO SCH (08:27)
[2025-04-03] MEDS: ACETAMINOPHEN 325 MG TABLET PO SCH (08:27)
[2025-04-03] MEDS: FOLIC ACID 1 MG TABLET PO SCH (08:27)
[2025-04-03] MEDS: TAMSULOSIN 0.4 MG SR CAP PO SCH (08:27)
[2025-04-03] MEDS: ASPIRIN EC 81 MG TAB PO SCH (08:27)
[2025-04-03] MEDS: VITAMIN D 1000 UNIT TAB PO SCH (08:27)
[2025-04-03] MEDS: METOPROLOL TAR 25 MG TAB PO SCH (08:28)
[2025-04-03] MEDS: FUROSEMIDE 40 MG TABLET PO SCH (08:28)
[2025-04-03] MEDS: CALCIUM ACETATE 667 MG TAB PO SCH (08:35)
[2025-04-03] MEDS: AURYXIA PO SCH (08:36)
[2025-04-03] MEDS: NYSTATIN PWDR 100000 UNIT/GM TOP SCH (08:36)
[2025-04-03] MEDS ORDERED: HEPARIN 5000 UNIT/ML 1 ML VIAL SQ SCH (09:00)
[2025-04-03] MEDS: OXYCODONE HCL 5 MG TAB PO PRN (09:39)
[2025-04-03] MEDS: ATORVASTATIN 40 MG TAB PO SCH (19:57)
[2025-04-03] MEDS: TRAMADOL HCL 50 MG TAB PO SCH (19:57)
[2025-04-03] MEDS: GABAPENTIN 100 MG CAP PO SCH (19:57)
[2025-04-03] MEDS: LATANOPROST 0.005% 2.5ML OPTH OPTH SCH (20:14)
[2025-04-03] MEDS ORDERED: GABAPENTIN 100 MG CAP PO SCH (21:00)
--- NOTE | 2025-04-04 01:06 | HP ---
Date of Admission: 04/02/2025 Time: 1:00 p.m. Chief Complaint: Fell out of wheelchair and broke the leg. History Of Present Illness: Mr. Bautista is a 64-year-old patient with end-stage renal disease, on hem odialysis; prior stroke; hypertension; leukemia in remission; diabetes mellitus type 2 who was being transported by van to hemodialysis when he fell out of the wheelchair. Impacted the left side includ ing the lower and upper extremities and has severe pain. Evaluated and found to have a left subtroch anteric femur fracture that was displaced and a left distal ulnar diaphysis fracture. He was sent to [facility] for higher level of care and underwent intramedullary nailing of th e left femur fracture on 03/21/2025. The left upper extremity was within the cast to heal by seconda ry intention without surgical intervention. Postoperatively, his course was complicated by acute blo od loss requiring transfusion. He had a bag of red blood cells. Further, he had postoperative delir ium management with dexmedetomidine infusions and nonpharmacological interventions. While hospitaliz ed, he was continued on hemodialysis scheduled 3 days weekly, had cardiac evaluation and monitoring a nd also was seen by Geriatric Service. He was treated with prophylaxis for venous thrombosis and thr omboembolism. Given the patient's acute change in his fractures and surgery, he has had significant physical and medical decline in his condition. He has had functional impairment. He requires valentin l to total assistance for wheelchair mobilization and 2-person assistance for transfers. Usually, he can perform these mobilization approaches at home with 1 help aide. He can tolerate wheelchair mobi lization of about 150 feet with minimal assistance to supervision. He is again nonweightbearing in t he left upper extremity which is in the cast and healing by secondary intention. Furthermore, he garcia s have a fluctuating cognitive functioning with anxiety, poor safety awareness, and requires continuo us verbal cuing to maintain compliance with movement restrictions. His behaviors did significantly i ncrease risk of falling and impairs ability to participate safely in therapy. Furthermore, secondary to his prior stroke, his comprehension is less than optimal and requires encouragement and realistic conversations during therapy for him to be able to participate fully and to benefit fully. However, despite slow progress, both physical and occupational therapy teams prior to the patient coming reji mmended admission to inpatient rehabilitation based on a substantial decline to have him return towar ds his prior level of functioning and mobilization. At this point, he is unable to return to his zafar or living environment as he would likely worsen very significantly. Furthermore, a lower level of ca re is not likely to benefit the patient. Past Medical History: As noted above. Allergies: NO KNOWN DRUG ALLERGIES. Medications: Tylenol 650 3 times daily, Artificial Tears 1 drop twice daily, aspirin 81 mg daily, Li pitor 40 mg at bedtime, Rocaltrol 0.25 mcg weekly, PhosLo 667 mg 3 times daily, Vitamin D 1000 units daily, Plavix 75 mg daily, collagenase applied to patient's wound daily, Colace 100 mg 3 times daily, Proscar 5 mg daily, folic acid 1 mg daily, Lasix 40 mg daily, gabapentin 100 mg twice daily. He is receiving heparin 5000 units subcutaneously twice daily, Apresoline 50 mg 3 times daily, lactulose 10 g twice daily. He has Xalatan 0.005% ophthalmic drops 1 drop at bedtime, Synthroid 0.025 mg daily, lidocaine patch 2 patches apply daily, melatonin 3 mg at bedtime, Lopressor 12.5 mg twice daily, nyst atin powder apply to areas of other infections daily, oxycodone 5 mg daily, Zofran 4 mg every 4 hours as needed, Protonix 40 mg daily, GlycoLax 17 g daily, Senokot 8.6 mg daily, Flomax 0.4 mg daily, tra madol 50 mg twice daily, and Super B Complex 1 capsule daily. Laboratory Studies: Blood work is pending with dialysis. Blood sugars ranged from 104 to 167. Social History: The patient has computer assistant available for him. Has a caregiver. He was ag ain previously independent and performed his activities of daily living. No alcohol, tobacco, or IV drug use. Family History: Noncontributory. X-ray/imaging: X-ray of the left femur on 03/19 shows a completely displaced left proximal femur fra cture and osteoarthrosis. X-ray of the femur, 2 views, on 03/19 also showed displaced segmental frac ture of the proximal left femur. X-ray of the forearm done on shows distal ulnar diaphysi s fracture and also left distal phalanx fracture of the ring finger. Chest x-ray on 03/22 shows lung s are adequately expanded. Persistent mild bilateral incisional opacities and perihilar vascular con gestion can be seen edema. Lower respiratory tract infection or reactive airway disease c annot be excluded. No pleural effusion or pneumothorax seen. There is mild cardiomegaly. No acute osseous abnormalities, deformity, fractures of multiple left lateral ribs seen. Current Level Of Functioning: Currently, Mr. Bautista has a setup assistance for eating, supervision f or grooming, dependent for bathing, maximum assistance for upper body dressing, dependent for lower b kira dressing, and donning and doffing footwear. He is dependent for toileting, transferring from bed , chair, wheelchair to toilet. Dependent for ambulation, just 1 foot with a rolling walker, wheelcha ir mobilization at moderate assistance for 150 feet. Physical Examination: Vital Signs: His blood pressure 170/71, pulse 50, respiratory rate 16, temperature 97.7. Oxygen sat uration 98%. General: Mr. Bautista is resting comfortably in bed. He appears to be in no significant distress. St ill has some moderate pain. He says actually moderate to severe pain in the left hip fracture site. His left arm is in a hard cast. Denies any significant pain there. HEENT: Otherwise, he is normocephalic, atraumatic. Sclerae anicteric. Oropharynx pink and moist. Neck: Supple. Chest: Clear. Extremities: He has weakness related to pain in the left hip due to recent surgery. He can move the foot and bend his knee up, but has precautions on board. No focal deficits in the left upper and ri ght upper extremity and right lower extremity. Rehab And Medical Assessment And Plan: Mr. Bautista is a 64-year-old patient admitted to rehabilitatio n unit with impairment category 17, multiple major traumatic injuries without traumatic brain injury or spinal cord injury. His impairment group code is 08.4, multiple major fractures. Etiologic diagn osis: Comminuted displaced left subtrochanteric femur fracture. His comorbid conditions include dec reased mobility; decreased physical functioning; end-stage renal disease, on hemodialysis; prior stro ke with no ongoing significant deficits; leukemia in remission; hypertension; diabetes mellitus type 2. Plan: He will have physical, occupational, and speech therapy 3.5 hours, 5 of 7 days. He has multip le comorbid conditions including end-stage renal disease, will be handled by the renal service and he modialysis 3 times weekly. Dyslipidemia treated with Lipitor, aspirin for stroke risk reduction, Art ificial Tears for dry eyes, Tylenol for pain. He has Colace for constipation, folic acid for residua l stroke risk. He has Lasix for fluid management, although does not make much urine production. He does have gabapentin for neuropathic pain. He has lactulose as noted, melatonin for insomnia, Lopres sor for heart rate control, Zofran for nausea. He also has oxycodone for pain, Flomax for prostate h ypertrophy. Comorbidities That Are Impacting His Rehabilitation: Given his end-stage renal disease, on hemodialy sis, Renal Service will be working to perform dialysis. At times, when he is not doing therapy, nixon lly towards the end of the day, dialysis 3 times weekly. Does have a high fall risk, fall precautions to be adhered to at all times and he is at a touchdown weightbearing status in the left lower extremity. Please note, he is at a weightbearing as tolerated status to the left lower extremi ty and a nonweightbearing status to the left upper extremity using a cast. Rehab Specific Plan: Mr. Bautisat will have physical, occupational, and speech therapy 3.5 hours, 5 of 7 days to improve his ability to transfer from bed to chair, to a wheelchair, to be able to mobilize with a walker, may use a left platform walker or also he may use a right hand given his l eft arm is nonweightbearing. He is addressing the challenge given the left arm is in the cast and al so lower body dressing and donning and doffing footwear could pose a problem with the patient will us e assistive devices and . Mr. Bautista has a good understanding of the process of admission to inpatient rehabilitation unit, how he will benefit from physical, occupational, and speech therapy. He will have 24 hours a day, 7 day s a week skilled rehabilitation nursing, daily physician evaluation and management, and social servic es evaluation and management for discharge planning, home equipment, and to continue therapy after di olivia. At this point, if a hospitalist service is required, the hospitalist will be consulted. Barriers To Discharge: He has multiple areas of fractures, may make it difficult for him to again re turn to his prior living situation and be independent. May require extended stay, fci ma y be considered. Length Of Stay: About 2 weeks. Disposition: Expected to be back home to continue therapy via Home Health. Prognosis: Good prognosis despite multiple fractures. Rehab Specific Goals: 1. Become independent with upper and lower body dressing as much as possible to independently transfe r from bed to chair, to toilet. 2. Independently mobilize 250 feet with a rolling walker and a wheelchair and independently go up and down 10 steps using right-sided hand rails. Furthermore, in terms of cognitive functioning, he is e xpected to be independent to make safe decisions and planning and work on his impulsivity. The above goals were reviewed Mr. Bautista, he is in agreement. By signing this document, I acknowledge I personally performed a full physical examination on Mr. Jigar lara no later than 24 hours after his admission to the inpatient rehabilitation unit and determined he is able to tolerate the above course of treatment at an intensive level for reasonable period of diamond e. A detailed individualized plan of care for him will be completed by hospital day 4 based on the p readmission screen, history and physical, and therapy evaluations. KARLA Voice ID: [id number]
[2025-04-04] MEDS ORDERED: MEDIHONEY 44 ML TOPICAL TUBE TOP SCH (08:00)
[2025-04-04] MEDS: CRANBERRY FRUIT EXTRACT 425 MG CAPSULE PO SCH (08:21)
[2025-04-04] MEDS: COLLAGENASE 30 GM OINTMENT TOP SCH (08:23)
[2025-04-04 17:45] LABS: Absolute Lymphocytes (CBC) 0.9 K/uL (0.7-4.9); Hematocrit 27.2 % (39.6-49.0); Hemoglobin 9.1 g/dL (13.6-17.9); MCH 31.7 pg (27.0-35.0); MCHC 33.6 g/dL (32.0-36.0); MCV 94.5 fL (80-100); MPV 8.6 fL (7.6-11.3); Nucleated RBC Absolute Count 0.0 (0-0); Nucleated Red Blood Cells % 0.0 % (0-0); RBC Red Blood Cell Count 2.88 M/uL (4.33-5.43); White Blood Count 10.90 thou/uL (4.3-10.9)
[2025-04-04 20:55] LABS: Albumin 3.5 g/dL (3.4-5.0); Anion Gap 7.6 mEq/L (5.0-15.0); BUN Blood Urea Nitrogen 53.0 mg/dL (7-18); Glucose Level 157.0 mg/dL (74-106); Magnesium 2.8 mg/dL (1.6-2.4); Potassium 4.6 mEq/L (3.5-5.1); Prealbumin 21.6 mg/dL (20-40)
[2025-04-04 20:55] LABS: Hepatitis B Surface Ab - Quant 4.27 mIU/mL (<8.0); Hepatitis B surface AG Interp. Nonreactive (Nonreactive)
[2025-04-04 20:56] LABS: HBsAG Nonreactive Report Report
[2025-04-04] MEDS: DOCUSATE NA 100 MG CAP PO SCH (21:02)
[2025-04-04] MEDS: JUVEN PACKET PO SCH (21:04)
--- NOTE | 2025-04-05 03:33 | PN ---
Subjective: Mr. Bautista is resting comfortably in bed. His left arm is in a cast and he has nonweig htbearing status there. Left lower extremity, he has weightbearing status after surgery for his comm inuted displaced left proximal femur fracture. He has reported pain; however, does not match his aff ect and patient is doing all therapies. He says pain is not stopping him from doing his therapy. Review of Systems: No fevers, chills, nausea, vomiting. Again, some myalgias, arthralgias noted. Physical Examination: Vital Signs: Blood pressure 178/40, pulse 62, respiratory rate 18, temperature 97.4, oxygen saturati on 94%. Weight 164.6, height 6 feet, BMI 22.3. General: Mr. Bautista is sitting in a chair, mobilizing around the unit. HEENT: He appears normocephalic, atraumatic. Extremities: Again, the left arm is in a sling. good hemostasis in the left hip surgical site. Laboratory Data: Today, white blood cell count 10.9, hemoglobin 9.1, platelets 272. Sodium 133, pot assium 4.6, chloride 101, BUN 53, creatinine , glucose ranged 121 to 157. Hemoglobin A1c 5 .1. Calcium 9.0. Phosphorus 3.5, magnesium 2.8. Albumin 3.5, prealbumin 21.6. Impression: End-stage renal disease, on hemodialysis. His urinalysis is consistent with that. Radha rase 500, clumps of white blood cells, greater than 50 bacteria, and this was also seen a year ago wh en dialysis was done. Did grow greater than 100,000 colony-forming units and noted to be 4+ gram-neg ative rods and 2+ nonbeta hemolytic strep. X-rays/imaging: No new x-rays or imaging. Medications: Tylenol 650 mg 3 times daily, Artificial Tears 1 drop in each eye twice daily, aspirin 81 mg daily, Lipitor 40 mg at bedtime, Rocaltrol 0.25 mcg every week, PhosLo 667 mg 3 times daily wit h meals, Vitamin D 1000 units daily, Plavix 75 mg daily, collagenase to wound apply topically daily, Colace 100 mg 3 times daily, Retacrit 6000 units with every hemodialysis, folic acid 1 mg daily, Lasi x 40 mg daily, gabapentin 100 mg twice daily, heparin 5000 units subcutaneously twice daily, Apresoli ne 50 mg 3 times daily, lactulose 10 g twice daily, eyedrops ophthalmic latanoprost 1 drop in each ey e daily, Synthroid 0.025 mg daily, lidocaine patch apply 2 daily, melatonin 3 at bedtime, Lopressor 1 2.5 mg twice daily, nystatin powder apply daily as needed, Zofran 4 mg every 4 hours as needed, oxyco done 5 mg every 4 hours, Protonix 40 mg daily, Senokot 8.6 mg daily, Flomax 0.4 mg daily, tramadol 50 mg twice daily, vitamin B complex 1 capsule daily. Progress Made With Physical, Occupational, And Speech Therapy: With physical therapy today, he did m obilize in bed with minimum to moderate assistance. He used the left platform walker where he can be ar weight on the elbow and did nonweightbearing on the arm. Able to walk 5 feet 3 times with maximum assistance, 7 feet again with maximum assistance. His occupational therapy, he did don and doff his pullover shirt 4 times with hemidressing technique and he did have some difficulty maintaining weigh tbearing status due to poor strength. With his speech, he demonstrated sustained attention for 3 min utes with 80% accuracy. Temporal orientation skills demonstrated 25% accuracy. Working memory for 3 units of information demonstrated with 60% accuracy. Assessment And Plan: Mr. Bautista is a -eulf-keb patient in rehabilitation unit with comminu flor displaced left proximal humeral fracture. Does have a left distal upper extremity fracture that is in a cast. He has had decreased mobility, decreased physical functioning. In addition to multipl e comorbid conditions; constipation; prostate hypertrophy; chronic pain, on narcotics. He has neurop athic pain. End-stage renal disease, on hemodialysis; dyslipidemia; risk of stroke. Plan: We will continue with his physical, occupational, and speech therapy 3.5 hours, 5 of 7 days. Continue with hemodialysis per schedule. Continue with his list of comorbid medications have been noted and he has heparin for DVT prophylaxis. LB/MODL Voice ID: [id number] Report ID: [id number]
[2025-04-05] MEDS: LACTULOSE 20 GM/30 ML UCUP PO PRN (08:36)
--- NOTE | 2025-04-05 13:36 | P.RH.PN ---
Estimated Length of Stay: 15 Expected Discharge Date: 04/16/25 Discharge Disposition Plan: Home Family Support: Yes [facility] Goal: Mobility, Transfers, Self Care Vital Signs: Last Vital Signs Temp 97.8 F 04/05/25 07:00 Pulse 64 04/05/25 08:33 Resp 16 04/05/25 07:00 BP 119/54 L 04/05/25 08:33 Pulse Ox 96 04/05/25 07:00 Laboratory: Laboratory Last Values WBC Cancelled 04/04/25 Unknown RBC Cancelled 04/04/25 Unknown Hgb Cancelled 04/04/25 Unknown Hct Cancelled 04/04/25 Unknown MCV Cancelled 04/04/25 Unknown MCH Cancelled 04/04/25 Unknown MCHC Cancelled 04/04/25 Unknown RDW Cancelled 04/04/25 Unknown Plt Count Cancelled 04/04/25 Unknown MPV Cancelled 04/04/25 Unknown Plt Distribution Width Cancelled 04/04/25 Unknown Absolute Nucleated RBC Cancelled 04/04/25 Unknown Neutrophils % Cancelled 04/04/25 Unknown Lymphocytes % Cancelled 04/04/25 Unknown Monocytes % Cancelled 04/04/25 Unknown Eosinophils % Cancelled 04/04/25 Unknown Basophils % Cancelled 04/04/25 Unknown Nucleated RBC % Cancelled 04/04/25 Unknown Absolute Neutrophils Cancelled 04/04/25 Unknown Absolute Lymphocytes Cancelled 04/04/25 Unknown Absolute Monocytes Cancelled 04/04/25 Unknown Absolute Eosinophils Cancelled 04/04/25 Unknown Absolute Basophils Cancelled 04/04/25 Unknown Diff Path Review Cancelled 04/04/25 Unknown Sodium Cancelled 04/04/25 Unknown Potassium Cancelled 04/04/25 Unknown Chloride Cancelled 04/04/25 Unknown Carbon Dioxide Cancelled 04/04/25 Unknown Anion Gap Cancelled 04/04/25 Unknown BUN Cancelled 04/04/25 Unknown Creatinine Cancelled 04/04/25 Unknown Est GFR (CKD-EPI) Cancelled 04/04/25 Unknown Glucose Cancelled 04/04/25 Unknown POC Glucose 170 mg/dL (65-120) H 04/05/25 11:23 Hemoglobin A1c 5.5 % (4.2-6.3) 04/04/25 17:00 Calcium Cancelled 04/04/25 Unknown Phosphorus 3.5 mg/dL (2.5-4.9) 04/04/25 17:00 Magnesium Cancelled 04/04/25 Unknown Albumin Cancelled 04/04/25 Unknown Prealbumin Cancelled 04/04/25 Unknown Urine Color Yellow (Yellow) 04/02/25 23:55 Urine Clarity Extremely turbid (Clear) H 04/02/25 23:55 Urine pH 7.0 (5.0-7.0) 04/02/25 23:55 Ur Specific [place] 1.012 (1.005-1.030) 04/02/25 23:55 Glucose (UA)(Auto) Negative (Negative) 04/02/25 23:55 Urine Ketones Negative (Negative) 04/02/25 23:55 Urine Blood 1+ (Negative) H 04/02/25 23:55 Urine Nitrite Negative (Negative) 04/02/25 23:55 Urine Bilirubin Negative (Negative) 04/02/25 23:55 Urine Urobilinogen Normal (Normal) 04/02/25 23:55 Ur Leukocyte Esterase 500 Francois/uL (Negative) H 04/02/25 23:55 Urine RBC 11-20 /HPF (None Seen) H 04/02/25 23:55 Urine WBC >50 /HPF (<5) H 04/02/25 23:55 Urine WBC Clumps Few /HPF (None Seen) H 04/02/25 23:55 Ur Squamous Epith Cells None seen /HPF (None Seen) 04/02/25 23:55 U Non-Squamous Epi Cells <5 /HPF (None Seen) 04/02/25 23:55 Urine Bacteria >50 /HPF (<20) H 04/02/25 23:55 Urine Mucus Slight /HPF (None Seen) 04/02/25 23:55 Urine Culture Reflexed Reflexed 04/02/25 23:55 Urine Total Protein 3+ (Negative) H 04/02/25 23:55 Hep Bs Antigen Nonreactive (Nonreactive) 04/04/25 18:08 Hep B Surface Ag Comm Report 04/04/25 18:08 Hep Bs Antibody Nonreactive (Nonreactive) 04/04/25 18:08 Hep Bs Antibody, Quant 4.27 mIU/mL (<8.0) 04/04/25 18:08 Weight: 164 lb 3.2 oz Wound Present: No Closed Surgical Incision Present: Yes Negative Pressure Wound Therapy Present: No Physician Update: Labs reviewed and are stable. Stage III on the sacrum with good hemostasis at the left hip surgical site. SLUMS 9, his memory is workable with repitition. Will start depakote for anxiety. Now CGA bed mobility but may fall backwards. Max for pivot transfers. NWB with left arm. Min assist with sit to stand with rail. RW 7' with left platform walker. WC 50' at a time for 250' total. With OT supervision upper body dressing, max lower body dressing. Dependent for socks. Supervision for grooming. Min assist bathing. Summary: Patient's care plan and long-term goals have been reviewed and revised as necessary. Please see the Rehabilitation Signature page for all necessary signatures.
[2025-04-05] MEDS: DIVALPROEX DR 250 MG TAB PO SCH (20:23)
--- NOTE | 2025-04-05 22:48 | CON ---
Date of Consultation: 04/05/2025 Chief Complaint: End-stage renal disease. History Of Present Illness: The patient is admitted to rehab floor after he fell out of wheelchair a nd broke the leg. The patient is a 64-year-old patient with end-stage renal disease, on hemodialysis ; history of previous stroke; hypertension; leukemia, in remission; diabetes mellitus type 2 with sampson al manifestation and he is dialysis dependent. He is undergoing rehab. Review of Systems: General: Denies fever, chills. Eyes: Denies vision changes. Ears, Nose, Mouth, and Throat: Denies sore throat, earache. Respiratory: Denies PND, orthopnea. Cardiovascular: Denies chest pain, syncope. GI: Denies nausea, vomiting. : Denies dysuria, hematuria. All other systems reviewed and all are negative. Past Medical History: Diabetes mellitus; hypertension; end-stage renal disease; anemia; CKD; renal o steodystrophy; hyperparathyroidism of renal origin; chronic constipation; status post fall; left dist al ulnar fracture; CVA; leukemia, in remission; diabetes mellitus with renal manifestation; status po st dialysis access procedure. Social History: Denies tobacco, alcohol. Family History: Noncontributory. Physical Examination: General: The patient is awake, alert, follows commands. Eyes: Anicteric. Sclerae EOMI. Ears, Nose, Mouth, and Throat: Oral mucosa moist. No pallor. Neck: Supple. No bruits. Lungs: Clear to auscultation bilaterally. Heart: S1, S2. Abdomen: Soft. Extremities: No edema. Impression And Plan: 1. End-stage renal disease. Continue dialysis 3 times per week. 2. Anemia. Continue to monitor hemoglobin level. Adjust JORDY according to lab result. 3. Renal osteodystrophy. Continue renal diet and binders. 4. Status post fall. Rehab plan. PT, OT per primary team. EB/MODL Voice ID: [id number] Report ID: [id number]
[2025-04-06 15:22] LABS: Absolute Lymphocytes (CBC) 0.9 K/uL (0.7-4.9); Hematocrit 26.5 % (39.6-49.0); Hemoglobin 8.8 g/dL (13.6-17.9); MCH 31.3 pg (27.0-35.0); MCHC 33.2 g/dL (32.0-36.0); MCV 94.3 fL (80-100); MPV 8.0 fL (7.6-11.3); Nucleated RBC Absolute Count 0.0 (0-0); Nucleated Red Blood Cells % 0.1 % (0-0); RBC Red Blood Cell Count 2.82 M/uL (4.33-5.43); White Blood Count 7.50 thou/uL (4.3-10.9)
[2025-04-06 15:48] LABS: Albumin 3.4 g/dL (3.4-5.0); Anion Gap 11.0 mEq/L (5.0-15.0); BUN Blood Urea Nitrogen 37.0 mg/dL (7-18); Glucose Level 141.0 mg/dL (74-106); Magnesium 2.7 mg/dL (1.6-2.4); Potassium 4.0 mEq/L (3.5-5.1); Prealbumin 21.1 mg/dL (20-40)
[2025-04-06] MEDS: MELATONIN 3 MG TABLET PO PRN (21:14)
--- NOTE | 2025-04-07 10:27 | P.PN ---
Date of Service: 04/07/25 Nephrology progress note a 64-year-old patient with end-stage renal disease, on hemodialysis; history of previous stroke; hypertension; leukemia, in remission; diabetes mellitus type 2 with renal manifestation and he is dialysis dependent. He is undergoing rehab Patient status post dialysis Tuesday Physical exam Temp Pulse Resp BP Pulse Ox 97.6 F 56 18 110/56 L 98 04/07/25 06:45 04/07/25 08:38 04/07/25 08:37 04/07/25 08:38 04/07/25 08:37 General: The patient is awake, alert, follows commands. Eyes: Anicteric. Sclerae EOMI. Ears, Nose, Mouth, and Throat: Oral mucosa moist. No pallor. Neck: Supple. No bruits. Lungs: Clear to auscultation bilaterally. Heart: S1, S2. Abdomen: Soft. Nontender no organomegaly Extremities: No edema. Cast on the left upper extremity extended to the hand Assessment and plan 1.End-stage renal disease. Continue dialysis 3 times per week. 2. Anemia. Continue to monitor hemoglobin level. Adjust JORDY according to lab result. 3. Renal osteodystrophy. Continue renal diet and binders. 4. Status post fall. Rehab plan. PT, OT per primary team. 5. Hypertension controlled optimal continue current treatment
[2025-04-08] MEDS: AURYXIA 210 MG PO SCH (11:58)
--- NOTE | 2025-04-09 03:16 | PN ---
Date of Progress Note: 04/08/2025 Chief Complaint: End-stage renal disease. History: The patient is admitted to rehab floor after he fell out of the wheelchair and broke the le ft leg. The patient is a 64-year-old patient with end-stage renal disease, on hemodialysis. He has history of previous stroke, hypertension, leukemia in remission, diabetes mellitus with renal manifes tation. Review of Systems: Denies chest pain, palpitations. Physical Examination: Lungs: Clear to auscultation bilaterally. Heart: S1, S2. Abdomen: Soft. Extremities: Minimal edema. Impression And Plan: 1. End-stage renal disease. Continue dialysis 3 times per week. 2. Anemia. Continue to monitor hemoglobin level. 3. Renal osteodystrophy. Continue renal diet and binders. 4. Status post fall. Continue PT, OT. ACE/LISA Voice ID: [id number] Report ID: [id number]
[2025-04-09] MEDS: EPOETIN ALFA 10,000 UNIT/ML VIAL IV SCH (17:11)
[2025-04-10] MEDS ORDERED: DOCUSATE NA 100 MG CAP PO PRN (02:21)
--- NOTE | 2025-04-10 03:21 | PN ---
Date of Progress Note: 04/09/2025 Subjective: Mr. Bautista is mobilizing with the therapist helping with his sit to stand. He is able t o use the leg brazer resistance with the right hand and moving the left lower extremity where he is weightbearin g as tolerated after surgery. He does have nonweightbearing on the left forearm which is in a cast a nd he is able to use the elbow on the left as he mobilizes. Objective: No fevers, chills, nausea, vomiting. Mild myalgias. No arthralgias or rash. Physical Examination: Vital Signs: Blood pressure 125/52, pulse of 82, respiratory rate 18, temperature 97.5, O2 saturatio n 96%. General: Mr. Bautista is uncomfortable. He does have the left arm in the cast, and this included the forearm and the wrist and he has good air movement. Abdomen: Soft. Extremities: No significant edema in the extremities. Laboratory Studies: Blood sugars ranged from 82 to 205. No x-rays or imaging. Medications: Medications have been reviewed and are unchanged. He is followed by the Renal Service Dr. Burnham and Dr. Salmon. Progress Made With Physical, Occupational, And Speech Therapy: With physical therapy today, performe d seated exercises, toe raises, heel raises, hip flexion, hip adduction and abduction, pillow squeeze s dkwejx-ny-rfz transfer done with standby assistance, multiple wev-ch-jwjxh transfer wheelchair and platform and done with maximum assist. He ambulated with a platform walker rolling walker and that i s in the platform on the left side, 15 feet twice, 10 feet twice, 8 feet twice with moderate assistan ce. He has occupational therapy, supervision for ticzzy-yu-cif transfers with minimal assist, for si t-to-stand transfers, a platform walker, requires extended time to go from edge of bed to wheelchair with a platform rolling walker. With speech, recalled 3 of 3 unrelated items after 5-minute delay wi th minimal assistance. Did temporal orientation tasks with 70% accuracy, required maximum assistance . Working memory for 3 units of information, 6 with accuracy with moderate assistance. With speech, able to maintain sustained attention for 5 minutes to complete an activity with 70% accuracy and mod erate assistance. Assessment: Mr. Bautista is a 64-year-old patient in the rehabilitation unit with comminuted displaced left proximal humeral fracture and left distal upper extremity fracture. He has decreased mobility and decreased physical functioning, dry eyes, dyslipidemia, stroke risk. He has wound being addresse d by collagenase, gabapentin for neuropathic pain, and difficulty with his sleep. He has renal disea se. He is on hemodialysis schedule. Hypothyroidism, tension, nausea. He has pain, urinary outflow tract obstruction, and constipation. Continue with the renal service management for his comorbid sampson al issues. Continue with all of medication that have been listed and noted. Pain management include d he has nonweightbearing on the left distal upper extremity and he is doing very well using adaptive equipment. His plan will be to continue with physical, occupational, and speech therapy 3.5 hours, 5 of 7 days and all comorbid condition as noted above. NAE/LISA Voice ID: [id number] Report ID: [id number]
--- NOTE | 2025-04-10 10:57 | P.PN ---
Date of Service: 04/10/25 Nephrology progress note a 64-year-old patient with end-stage renal disease, on hemodialysis; history of previous stroke; hypertension; leukemia, in remission; diabetes mellitus type 2 with renal manifestation and he is dialysis dependent. He is undergoing rehab Patient status post dialysis Tuesday Physical exam Temp Pulse Resp BP Pulse Ox 97.8 F 63 18 119/50 L 95 04/10/25 06:55 04/10/25 06:55 04/10/25 06:55 04/10/25 06:55 04/10/25 06:55 General: The patient is awake, alert, follows commands. Eyes: Anicteric. Sclerae EOMI. Ears, Nose, Mouth, and Throat: Oral mucosa moist. No pallor. Neck: Supple. No bruits. Lungs: Clear to auscultation bilaterally. Heart: S1, S2. Abdomen: Soft. Nontender no organomegaly Extremities: No edema. Cast on the left upper extremity extended to the hand Laboratory Last Values WBC 7.50 thou/uL (4.3-10.9) 04/06/25 15:10 RBC 2.82 M/uL (4.33-5.43) L 04/06/25 15:10 Hgb 8.8 g/dL (13.6-17.9) L 04/06/25 15:10 Hct 26.5 % (39.6-49.0) L 04/06/25 15:10 MCV 94.3 fL (80-100) 04/06/25 15:10 MCH 31.3 pg (27.0-35.0) 04/06/25 15:10 MCHC 33.2 g/dL (32.0-36.0) 04/06/25 15:10 RDW 17.5 % (12.1-15.2) H 04/06/25 15:10 Plt Count 271 thou/uL (152-406) 04/06/25 15:10 MPV 8.0 fL (7.6-11.3) 04/06/25 15:10 Plt Distribution Width Cancelled 04/04/25 Unknown Absolute Nucleated RBC Cancelled 04/04/25 Unknown Neutrophils % 73.7 % (41.7-73.7) 04/06/25 15:10 Lymphocytes % 12.4 % (15.3-44.8) L 04/06/25 15:10 Monocytes % 3.2 % (3.3-12.3) L 04/06/25 15:10 Eosinophils % 9.5 % (0-4.4) H 04/06/25 15:10 Basophils % 1.2 % (0-1.3) 04/06/25 15:10 Nucleated RBC % Cancelled 04/04/25 Unknown Absolute Neutrophils 5.5 K/uL (1.8-8.0) 04/06/25 15:10 Absolute Lymphocytes 0.9 K/uL (0.7-4.9) 04/06/25 15:10 Absolute Monocytes 0.2 K/uL (0.1-1.3) 04/06/25 15:10 Absolute Eosinophils 0.7 K/uL (0-0.5) H 04/06/25 15:10 Absolute Basophils 0.1 K/uL (0-0.5) 04/06/25 15:10 Diff Path Review Cancelled 04/04/25 Unknown Sodium 135 mEq/L (136-145) L 04/06/25 15:10 Potassium 4.0 mEq/L (3.5-5.1) 04/06/25 15:10 Chloride 100 mEq/L (98-107) 04/06/25 15:10 Carbon Dioxide 28 mEq/L (21-32) 04/06/25 15:10 Anion Gap 11.0 mEq/L (5.0-15.0) 04/06/25 15:10 BUN 37 mg/dL (7-18) H 04/06/25 15:10 Creatinine 4.31 mg/dL (0.70-1.30) H 04/06/25 15:10 Est GFR (CKD-EPI) 14 ml/min (=/>90) L 04/06/25 15:10 Glucose 141 mg/dL (74-106) H 04/06/25 15:10 POC Glucose 205 mg/dL (65-120) H 04/09/25 19:09 Hemoglobin A1c 5.5 % (4.2-6.3) 04/04/25 17:00 Calcium 8.6 mg/dL (8.5-10.1) 04/06/25 15:10 Phosphorus 3.0 mg/dL (2.5-4.9) 04/06/25 15:10 Magnesium 2.7 mg/dL (1.6-2.4) H 04/06/25 15:10 Albumin 3.4 g/dL (3.4-5.0) 04/06/25 15:10 Prealbumin 21.1 mg/dL (20-40) 04/06/25 15:10 Urine Color Yellow (Yellow) 04/02/25 23:55 Urine Clarity Extremely turbid (Clear) H 04/02/25 23:55 Urine pH 7.0 (5.0-7.0) 04/02/25 23:55 Ur Specific [place] 1.012 (1.005-1.030) 04/02/25 23:55 Glucose (UA)(Auto) Negative (Negative) 04/02/25 23:55 Urine Ketones Negative (Negative) 04/02/25 23:55 Urine Blood 1+ (Negative) H 04/02/25 23:55 Urine Nitrite Negative (Negative) 04/02/25 23:55 Urine Bilirubin Negative (Negative) 04/02/25 23:55 Urine Urobilinogen Normal (Normal) 04/02/25 23:55 Ur Leukocyte Esterase 500 Francois/uL (Negative) H 04/02/25 23:55 Urine RBC 11-20 /HPF (None Seen) H 04/02/25 23:55 Urine WBC >50 /HPF (<5) H 04/02/25 23:55 Urine WBC Clumps Few /HPF (None Seen) H 04/02/25 23:55 Ur Squamous Epith Cells None seen /HPF (None Seen) 04/02/25 23:55 U Non-Squamous Epi Cells <5 /HPF (None Seen) 04/02/25 23:55 Urine Bacteria >50 /HPF (<20) H 04/02/25 23:55 Urine Mucus Slight /HPF (None Seen) 04/02/25 23:55 Urine Culture Reflexed Reflexed 04/02/25 23:55 Urine Total Protein 3+ (Negative) H 04/02/25 23:55 Hep Bs Antigen Nonreactive (Nonreactive) 04/04/25 18:08 Hep B Surface Ag Comm Report 04/04/25 18:08 Hep Bs Antibody Nonreactive (Nonreactive) 04/04/25 18:08 Hep Bs Antibody, Quant 4.27 mIU/mL (<8.0) 04/04/25 18:08 Acetaminophen (Acetaminophen 325 Mg Tablet) 650 mg PO TID [facility] Last Admin: 04/10/25 08:05 Dose: 650 mg Artificial Tears (Carboxymethylcellulose Sodium 0.5% 15 Ml) 1 drops OPTH BID PRN PRN Reason: DRY EYES Aspirin (Aspirin Ec 81 Mg Tab) 81 mg PO DAILY [facility] Last Admin: 04/10/25 08:08 Dose: 81 mg Atorvastatin Calcium (Atorvastatin 40 Mg Tab) 40 mg PO BEDTIME [facility] Last Admin: 04/09/25 20:05 Dose: 40 mg Calcitriol (Calcitrol 0.25 Mcg Cap) 0.25 mcg PO UD [facility] Calcium Acetate (Calcium Acetate 667 Mg Tab) 667 mg PO TIDWM [facility] Last Admin: 04/10/25 08:00 Dose: 667 mg Cholecalciferol (Vitamin D 1000 Unit Tab) 1,000 unit PO DAILY [facility] Last Admin: 04/10/25 08:06 Dose: 1,000 unit Clopidogrel Bisulfate (Clopidogrel 75 Mg Tablet) 75 mg PO DAILY [facility] Last Admin: 04/10/25 08:05 Dose: 75 mg Collagenase (Collagenase 30 Gm Ointment) 1 appl TOP DAILY [facility] Last Admin: 04/10/25 08:17 Dose: 1 appl Divalproex Sodium (Divalproex Dr 250 Mg Tab) 250 mg PO BEDTIME [facility] Last Admin: 04/09/25 20:05 Dose: 250 mg Docusate Sodium (Docusate Na 100 Mg Cap) 100 mg PO TID PRN PRN Reason: CONSTIPATION Epoetin Zaki (Epoetin Zaki 10,000 Unit/Ml Vial) 6,000 unit IV EVERY HD [facility] Last Admin: 04/09/25 17:11 Dose: 6,000 unit Finasteride (Finasteride 5 Mg Tab) 5 mg PO DAILY [facility] Last Admin: 04/10/25 08:07 Dose: 5 mg Folic Acid (Folic Acid 1 Mg Tablet) 1 mg PO DAILY [facility] Last Admin: 04/10/25 08:07 Dose: 1 mg Furosemide (Furosemide 40 Mg Tablet) 40 mg PO DAILY [facility] Last Admin: 04/10/25 08:07 Dose: 40 mg Gabapentin (Gabapentin 100 Mg Cap) 100 mg PO BID [facility] Last Admin: 04/10/25 08:08 Dose: 100 mg Heparin Sodium (Porcine) (Heparin 5000 Unit/Ml 1 Ml Vial) 5,000 unit SQ BID [facility] Last Admin: 04/10/25 09:13 Dose: 5,000 unit Home Med (Auryxia) 2 tab PO TIDWM [facility] Last Admin: 04/10/25 08:08 Dose: 2 tab Hydralazine HCl (Hydralazine Hcl 25 Mg Tablet) 50 mg PO TID [facility] Last Admin: 04/10/25 08:06 Dose: Not Given L-Arginine/L-Glutamine/HMB (Mehul Packet) 1 pkt PO BID [facility] Last Admin: 04/10/25 08:00 Dose: 1 pkt Lactulose (Lactulose 20 Gm/30 Ml Ucup) 10 gm PO BID PRN PRN Reason: CONSTIPATION Last Admin: 04/05/25 08:36 Dose: 10 gm Latanoprost (Latanoprost 0.005% 2.5ml Opth) 0 drops OPTH BEDTIME [facility] Last Admin: 04/09/25 20:04 Dose: 1 drop Levothyroxine Sodium (Levothyroxine Sod 0.025 Mg Tab) 0.025 mg PO DAILYAC [facility] Last Admin: 04/10/25 06:37 Dose: 0.025 mg Lidocaine (Lidocaine 4% Patch) 2 patch TOP DAILY [facility] Last Admin: 04/10/25 08:00 Dose: 2 patch Melatonin (Melatonin 3 Mg Tablet) 3 mg PO BEDTIME PRN PRN PRN Reason: INSOMNIA Last Admin: 04/07/25 19:51 Dose: 3 mg Metoprolol Tartrate (Metoprolol Tar 25 Mg Tab) 12.5 mg PO BID [facility] Last Admin: 04/10/25 08:06 Dose: Not Given Nystatin (Nystatin Pwdr 836123 Unit/Gm) 0 appl TOP BID [facility] Last Admin: 04/10/25 08:17 Dose: 1 appl Ondansetron HCl (Ondansetron 4 Mg (Odt) Tab) 4 mg PO Q4H PRN PRN Reason: NAUSEA / VOMITING Oxycodone HCl (Oxycodone Hcl 5 Mg Tab) 5 mg PO Q4H PRN PRN Reason: Pain scale 5-7 (Moderate) Last Admin: 04/05/25 06:45 Dose: 5 mg Pantoprazole Sodium (Pantoprazole 40mg Tablet) 40 mg PO DAILYAC [facility]; Protocol Last Admin: 04/10/25 08:06 Dose: 40 mg Polyethylene Glycol (Polyethyl Gly 3350 17 Gm/Dose) 17 gm PO DAILY PRN PRN Reason: CONSTIPATION Senna (Senosides 8.6 Mg Tab) 8.6 mg PO DAILY [facility] Last Admin: 04/10/25 08:05 Dose: 8.6 mg Tamsulosin HCl (Tamsulosin 0.4 Mg Sr Cap) 0.4 mg PO DAILY [facility] Last Admin: 04/10/25 08:07 Dose: 0.4 mg Tramadol HCl (Tramadol Hcl 50 Mg Tab) 50 mg PO BID [facility] Last Admin: 04/10/25 08:05 Dose: 50 mg Vitamin B Complex (Vitamin B Complex 1 Cap) 1 cap PO DAILY [facility] Last Admin: 04/10/25 08:05 Dose: 1 cap Assessment and plan 1.End-stage renal disease. Continue dialysis 3 times per week. 2. Anemia. Continue to monitor hemoglobin level. Adjust JORDY according to lab result. 3. Renal osteodystrophy. Continue renal diet and binders. 4. Status post fall. Rehab plan. PT, OT per primary team. 5. Hypertension controlled optimal continue current treatment
--- NOTE | 2025-04-11 00:47 | PN ---
Date of Progress Note: 04/10/2025 Time Of Service: 1:10. Subjective: Mr. Bautista is mobilizing around the unit. He is using the left leg more. There is a ca st on the left forearm up to the hand. This is due to his fracture and that is nonweightbearing in t he distal portion. He is feeling much better about his activity. Still reports some pain, but it i s manageable and he is doing more. Does not want additional medications. Review of Systems: No fevers, chills, nausea, vomiting. Mild myalgias and arthralgias are noted. No rash or psychiatri c complaints. Physical Examination: Vital Signs: Blood pressure 123/54, pulse 68, respiratory rate 16, temperature 97.4, oxygen saturati on 94%. General: Mr. Bautista is resting comfortably. He has no new findings in terms of examination. No foc al deficits. Extremities: He is unable to bear weight on the left upper extremity. His left lower extremity is w eightbearing as tolerated and still moderately weak there. Laboratory Studies: Blood sugars ranged 82-205. X-ray/imaging: No new x-rays or imaging. Medications: Medications have been reviewed and remain unchanged. He does and Colace for constipati on. Medications, no changes. Progress Made With Physical, Occupational, And Speech Therapy: With physical therapy today, mobiliza tion was 20 feet twice and 12 feet once with moderate assistance with a rolling walker and that is in the platform on the left side. Standby assistance for fydrkf-ze-saj and byg-wu-fdjsf transfers also . He did later mobilize a wheelchair 125 feet twice with minimum assistance. With licensed occupational therapy assistant apy, self propelled a wheelchair back and forth from room to gym at a steady pace and did so with sup ervision. Donning and doffing of socks using assistive device took extra time. He is moving at a sl ow pace. With speech, maintained sustained attention for 5 minutes and completed the activity with 8 0% accuracy and minimum assistance. Required minimum assistance for working memory tasks with 3 unit s of information and had 80% accuracy. He was able to recall 4 of 4 unrelated items after 1 minute d elay with minimum assistance. He was able to recall is 3 of 4 unrelated items after 2 minutes delay. Assessment And Plan: Mr. Bautista is a 64-year-old patient in rehabilitation unit with comminuted left displaced proximal femur fracture, left wrist fracture and that is in the cast. He does have decrea sed mobility, decreased physical functioning, is improving. He has of course moderate pain; prostate hypertrophy; urinary retention, on Flomax; Protonix for GE reflux. He is on oxycodone for pain, Zof ran for nausea, Mycostatin cream on board for fungal infection, melatonin for insomnia, lidocaine pat ch for his pain. He has Synthroid for hypothyroidism, lactulose to help with . He has Apr esoline for blood pressure control, gabapentin for neuropathic pain, Lasix for fluid management, Pros car for prostate hypertrophy. He has Retacrit. He is a renal patient, receiving hemodialysis 3 days weekly with Retacrit given 6000 units with each hemodialysis, Colace for constipation, Depakote 250 mg at bedtime for mood control, Plavix for stroke risk reduction. He has aspirin along with that 81 mg daily. Artificial Tears for dry eyes, Lipitor for dyslipidemia. In terms of his plan, we will continue with physical, occupational, and speech therapy and his list o f medications, which have been noted will be continued. He is also continuing his hemodialysis sched uled 3 times weekly, which is working around his rehabilitation schedule. NAE/LISA Voice ID: [id number] Report ID: [id number]
[2025-04-11] MEDS: CARBOXYMETHYLCELLULOSE SODIUM 0.5% 15 ML OPTH PRN (11:40)
[2025-04-11 18:18] LABS: Absolute Lymphocytes (CBC) 1.2 K/uL (0.7-4.9); Hematocrit 26.2 % (39.6-49.0); Hemoglobin 8.6 g/dL (13.6-17.9); MCH 31.5 pg (27.0-35.0); MCHC 32.7 g/dL (32.0-36.0); MCV 96.4 fL (80-100); MPV 8.7 fL (7.6-11.3); Nucleated RBC Absolute Count 0.0 (0-0); Nucleated Red Blood Cells % 0.0 % (0-0); RBC Red Blood Cell Count 2.72 M/uL (4.33-5.43); White Blood Count 9.50 thou/uL (4.3-10.9)
[2025-04-11 18:45] LABS: Albumin 3.3 g/dL (3.4-5.0); Anion Gap 7.9 mEq/L (5.0-15.0); BUN Blood Urea Nitrogen 67.0 mg/dL (7-18); Glucose Level 203.0 mg/dL (74-106); Magnesium 2.8 mg/dL (1.6-2.4); Potassium 4.9 mEq/L (3.5-5.1); Prealbumin 19.4 mg/dL (20-40); White Blood Cell Scan OK (OK)
[2025-04-11 18:46] LABS: Blood Morphology Comment NOT SEEN (NOT SEEN)
--- NOTE | 2025-04-11 21:42 | PN ---
Date of Progress Note: 04/11/2025 Subjective: Mr. Bautista is doing well. He has no new complaints. His left arm pain is improving. H zaid has actually on distal forearm he has fracture that is in cast. He is manipulating objects with gallardo nd and Objective: No fevers, chills, nausea, vomiting. No myalgias, arthralgias, rash, or other complaints . Physical Examination: Vital Signs: Blood pressure 138/60, pulse 58, respiratory rate 16, temperature 97.7, oxygen saturati on 94%. His weight is 167 pounds, height 6 feet, BMI 22.7. HEENT: He is normocephalic, atraumatic. Sclerae anicteric. Extremities: no significant edema as well noted. Laboratory Studies: His blood sugars were 82 to 205. X-ray/imaging: No new x-rays or imaging. He is followed by the Renal Service, Dr. Burnham and Dr Salmon. Progress Made With Physical, Occupational, And Speech Therapy: With physical therapy today, he was a ble to do kqhjid-dz-vdj transfers with standby assistance, multiple sdb-bl-jtkop transfers with a whe elchair, standby assistance using a rolling walker. With occupational therapy, he did donning and do ffing of pants without using an assistive device, able to put thread in both legs with his pants usin g the dressing stick in less than 2 minutes strengthening exercises. With speech, moderat e to minimal assistance for working memory tasks for 3 units of information at 80% accuracy and did s o, recalled 4 of 4 unrelated items after 5 minutes delay and 3 of 4 after 7-minute delay. Assessment And Plan: Mr. Bautista is a 64-year-old patient in rehabilitation unit with comminuted disp laced fracture of the left proximal femur. Does have a distal left upper extremity fracture and that is in the cast. He has mild decreased mobility, decreased physical functioning. Some mild difficul ty with comprehension and expression in recall. In addition, there is decreased mobility, decreased physical functioning, followed by the Renal Service. He has Apresoline for blood pressure control. Continue with lidocaine for pain, melatonin for insomnia, and Lopressor for heart rate con trol. He has oxycodone for his pain, Protonix for GE reflux, Senokot-S for constipation, Tylenol for pain. Plan: Continue with physical, occupational, and speech therapy for 3.5 hours, 5 of 7 days. His krishna rbid conditions are listed and we will continue on the same medications. Also being seen by the [facility] and his dialysis already is on schedule. NAE/LISA Voice ID: [id number] Report ID: [id number]
--- NOTE | 2025-04-12 13:28 | P.RH.PN ---
Estimated Length of Stay: 15 Expected Discharge Date: 04/16/25 Discharge Disposition Plan: Home Family Support: Yes Senior Care Goal: Mobility, Transfers, Self Care Vital Signs: Last Vital Signs Temp 98.4 F 04/12/25 07:02 Pulse 53 04/12/25 07:02 Resp 18 04/12/25 07:02 BP 123/58 L 04/12/25 07:02 Pulse Ox 98 04/12/25 07:02 Laboratory: Laboratory Last Values WBC 9.50 thou/uL (4.3-10.9) 04/11/25 17:30 RBC 2.72 M/uL (4.33-5.43) L 04/11/25 17:30 Hgb 8.6 g/dL (13.6-17.9) L 04/11/25 17:30 Hct 26.2 % (39.6-49.0) L 04/11/25 17:30 MCV 96.4 fL (80-100) 04/11/25 17:30 MCH 31.5 pg (27.0-35.0) 04/11/25 17:30 MCHC 32.7 g/dL (32.0-36.0) 04/11/25 17:30 RDW 17.8 % (12.1-15.2) H 04/11/25 17:30 Plt Count 285 thou/uL (152-406) 04/11/25 17:30 MPV 8.7 fL (7.6-11.3) 04/11/25 17:30 Plt Distribution Width Cancelled 04/04/25 Unknown Absolute Nucleated RBC Cancelled 04/04/25 Unknown Neutrophils % 62.6 % (41.7-73.7) 04/11/25 17:30 Lymphocytes % 12.4 % (15.3-44.8) L 04/11/25 17:30 Monocytes % 9.0 % (3.3-12.3) 04/11/25 17:30 Eosinophils % 14.8 % (0-4.4) H 04/11/25 17:30 Basophils % 1.2 % (0-1.3) 04/11/25 17:30 Nucleated RBC % Cancelled 04/04/25 Unknown Absolute Neutrophils 6.0 K/uL (1.8-8.0) 04/11/25 17:30 Absolute Lymphocytes 1.2 K/uL (0.7-4.9) 04/11/25 17:30 Absolute Monocytes 0.9 K/uL (0.1-1.3) 04/11/25 17:30 Absolute Eosinophils 1.4 K/uL (0-0.5) H 04/11/25 17:30 Absolute Basophils 0.1 K/uL (0-0.5) 04/11/25 17:30 Diff Path Review Cancelled 04/04/25 Unknown Platelet Estimate Adeq 04/11/25 17:30 Morphology Comment Not seen (NOT SEEN) 04/11/25 17:30 Sodium 138 mEq/L (136-145) 04/11/25 17:30 Potassium 4.9 mEq/L (3.5-5.1) 04/11/25 17:30 Chloride 106 mEq/L (98-107) 04/11/25 17:30 Carbon Dioxide 29 mEq/L (21-32) 04/11/25 17:30 Anion Gap 7.9 mEq/L (5.0-15.0) 04/11/25 17:30 BUN 67 mg/dL (7-18) H 04/11/25 17:30 Creatinine 7.04 mg/dL (0.70-1.30) H 04/11/25 17:30 Est GFR (CKD-EPI) 8 ml/min (=/>90) L 04/11/25 17:30 Glucose 203 mg/dL (74-106) H 04/11/25 17:30 POC Glucose 205 mg/dL (65-120) H 04/09/25 19:09 Hemoglobin A1c 5.5 % (4.2-6.3) 04/04/25 17:00 Calcium 8.9 mg/dL (8.5-10.1) 04/11/25 17:30 Phosphorus 2.4 mg/dL (2.5-4.9) L 04/11/25 17:30 Magnesium 2.8 mg/dL (1.6-2.4) H 04/11/25 17:30 Albumin 3.3 g/dL (3.4-5.0) L 04/11/25 17:30 Prealbumin 19.4 mg/dL (20-40) L 04/11/25 17:30 Urine Color Yellow (Yellow) 04/02/25 23:55 Urine Clarity Extremely turbid (Clear) H 04/02/25 23:55 Urine pH 7.0 (5.0-7.0) 04/02/25 23:55 Ur Specific [place] 1.012 (1.005-1.030) 04/02/25 23:55 Glucose (UA)(Auto) Negative (Negative) 04/02/25 23:55 Urine Ketones Negative (Negative) 04/02/25 23:55 Urine Blood 1+ (Negative) H 04/02/25 23:55 Urine Nitrite Negative (Negative) 04/02/25 23:55 Urine Bilirubin Negative (Negative) 04/02/25 23:55 Urine Urobilinogen Normal (Normal) 04/02/25 23:55 Ur Leukocyte Esterase 500 Francois/uL (Negative) H 04/02/25 23:55 Urine RBC 11-20 /HPF (None Seen) H 04/02/25 23:55 Urine WBC >50 /HPF (<5) H 04/02/25 23:55 Urine WBC Clumps Few /HPF (None Seen) H 04/02/25 23:55 Ur Squamous Epith Cells None seen /HPF (None Seen) 04/02/25 23:55 U Non-Squamous Epi Cells <5 /HPF (None Seen) 04/02/25 23:55 Urine Bacteria >50 /HPF (<20) H 04/02/25 23:55 Urine Mucus Slight /HPF (None Seen) 04/02/25 23:55 Urine Culture Reflexed Reflexed 04/02/25 23:55 Urine Total Protein 3+ (Negative) H 04/02/25 23:55 Hep Bs Antigen Nonreactive (Nonreactive) 04/04/25 18:08 Hep B Surface Ag Comm Report 04/04/25 18:08 Hep Bs Antibody Nonreactive (Nonreactive) 04/04/25 18:08 Hep Bs Antibody, Quant 4.27 mIU/mL (<8.0) 04/04/25 18:08 Smear Scan Ok (OK) 04/11/25 17:30 Weight: 167 lb 1.6 oz Wound Present: Yes Closed Surgical Incision Present: Yes Negative Pressure Wound Therapy Present: No Physician Update: Labs reviewed. He in on hemodialysis for ESRD. Sacral pressure injury is improving. NWB to left forearm. He will go to SNF [facility]. Poor processing, doing well on short term memory. With PT SBA bed mobility, sit to stand mod assist. RW 30' x 2 mod assist.WC 70241' x 2 min assist. With OT ind ependent, foot wear, mod assist lower body dressing. He has mild retropulsion. Will try Sinemet 25/100 mg in the AM. Comment: 04/12 improving Summary: Patient's care plan and residential goals have been reviewed and revised as necessary. Please see the Rehabilitation Signature page for all necessary signatures.
[2025-04-13] MEDS: CARBIDOPA/LEVODOPA 25/100 TAB PO SCH (08:28)
[2025-04-13 19:58] LABS: Absolute Lymphocytes (CBC) 1.2 K/uL (0.7-4.9); Hematocrit 25.5 % (39.6-49.0); Hemoglobin 8.5 g/dL (13.6-17.9); MCH 32.4 pg (27.0-35.0); MCHC 33.3 g/dL (32.0-36.0); MCV 97.3 fL (80-100); MPV 8.5 fL (7.6-11.3); Nucleated RBC Absolute Count 0.0 (0-0); Nucleated Red Blood Cells % 0.0 % (0-0); RBC Red Blood Cell Count 2.62 M/uL (4.33-5.43); White Blood Count 8.30 thou/uL (4.3-10.9)
[2025-04-13 20:18] LABS: Albumin 3.1 g/dL (3.4-5.0); Anion Gap 6.6 mEq/L (5.0-15.0); BUN Blood Urea Nitrogen 51.0 mg/dL (7-18); Glucose Level 220.0 mg/dL (74-106); Magnesium 2.5 mg/dL (1.6-2.4); Potassium 4.6 mEq/L (3.5-5.1); Prealbumin 21.3 mg/dL (20-40)
--- NOTE | 2025-04-13 20:23 | PN ---
Date of Progress Note: 04/13/2025 Subjective: No overnight events. Continue PT, OT. Scheduled dialysis for tomorrow, then Tuesday. Physical Examination: Vital Signs: Temperature 97.7, pulse rate 51, blood pressure 112/56. General: Awake and alert, oriented x3, not in distress. Neck: Supple. No elevated JVD. Heart: Regular rate and rhythm. Normal S1, S2. Chest: Clear to auscultation bilaterally. No rales or wheezes. Abdomen: Soft, nontender. Extremities: No edema. Left arm cast. Laboratory Data: From 04/11, white count 9.5, hemoglobin 8.6. Sodium 138, potassium 4.9, BUN 67, cr eatinine of 7. Assessment And Plan: 1. End-stage renal disease. Continue dialysis 3 times weekly. Next dialysis tomorrow and Tuesday. 2. Hypertension. Blood pressure controlled, currently on hydralazine. 3. Anemia of chronic disease. Continue Epogen. Monitor H and H. 4. Status post fall and arm fracture. Continue cast. Thank you for allowing me to participate in the patient's care. Total time spent 55 minutes markin g documentation, reviewing labs, and placing orders. TESSA/LISA Voice ID: [id number] Report ID: [id number]
[2025-04-14] MEDS: POLYETHYL GLY 3350 17 GM/DOSE PO PRN (08:19)
[2025-04-15 04:14] LABS: Hepatitis B surface AG Interp. Nonreactive (Nonreactive)
[2025-04-15 04:15] LABS: HBsAG Nonreactive Report Report
[2025-04-15] MEDS ORDERED: BISACODYL 10 MG RECTAL SUPP ONE (04:41)
[2025-04-15] MEDS: BISACODYL 10 MG RECTAL SUPP PR PRN (04:49)
[2025-04-15] MEDS ORDERED: FLEET ENEMA ADULT PR PRN (06:07)
--- NOTE | 2025-04-15 23:24 | PN ---
Date of Progress Note: 04/15/2025 Time: 1:10 p.m. Subjective: Mr. Bautista is in his room doing therapy using a leg lift and right arm, moving his left leg. The left arm is in a brace that is in the forearm to hand area from his distal fracture there. He has no new complaints. Still says moderate pain, although patient's affect does not match the re ported pain level. However, he is still receiving pain medication. He is also followed by the renal service for his end-stage renal disease, on hemodialysis. Review of Systems: No fevers, chills, nausea, vomiting. Mild myalgias, arthralgias. No rash. No psychiatric complaint s. Physical Examination: Vital Signs: Blood pressure 171/74, pulse 73, respiratory rate 16, temperature 97.9, oxygen saturati on 97%. General: Mr. Bautista again is sitting in chair beside bed. HEENT: He is normocephalic, atraumatic. Sclerae anicteric. Oropharynx pink and moist. Extremities: Left arm is in a hard cast across the elbow forearm into the hand. Fingers are free to move. Neuro: He has no focal or new neurological deficits. Laboratory Studies: White blood cell count 8.3, hemoglobin 8.5, platelets 281. He has sodium 136, p otassium 4.6, chloride 104, carbon dioxide 30, BUN 51, creatinine 5.91, glucose 220, calcium 9.1. Ph osphorus 1.8, magnesium 2.5. Albumin 3.1, prealbumin 21.3. X-ray/imaging: No new x-rays or imaging. Medications: Medications have been reviewed and he is on Dulcolax for constipation. The medications have remained unchanged except for possibly Fleet Enema for constipation. Progress Made With Physical, Occupational, And Speech Therapy: With physical therapy today, he ambul ated 35 feet and 20 feet with a rolling walker with minimum assistance. Mobilized wheelchair 125 fee t twice with independence. Sit to stand transfer from wheelchair to platform was done with minimum a ssistance. Progress made with occupational therapy, he was independent for upper body dressing, minimum assistan ce for bathing and washing and drying right upper extremity and verbal cues with the use of assistive device. Still requires assistance with ADLs and transfers. The patient would benefit from continue d therapy along with longterm to help him become independent. With speech, he did maintain a score of 10 on the BIMS. On the SLUMS, he improved from a 9 to 11. Assessment And Plan: Mr. Bautista is a -[id number] patient admitted to rehabilitation unit wit h comminuted displaced fracture of the left proximal femur and left distal upper extremity fracture. He has mild cognitive impairment in addition to moderate pain, addressed by multimodality treatments with constipation; GE reflux; hypertension; hypothyroidism; neuropathic pain; end-stage renal diseas e, on hemodialysis; stroke risk; Parkinson's symptoms for which he is now on Sinemet 25/100 daily. Essence mar has Lipitor for dyslipidemia, Artificial Tears on board, and Tylenol for pain. Plan: We will continue with medications for his comorbid conditions. We will continue with physical , occupational, and speech therapy 3.5 hours, 5 of 7 days. He is wanting to be discharged in the [facility]. He will continue therapy via Home Health. Comorbidities That Are Impacting Rehabilitation: Of course, he is an end-stage renal disease patient . Dialysis Mondays, Tuesday, and Fridays. The patient will continue with the renal service follow ing his discharge for dialysis schedule, continue his comorbid conditions. Followup: With his primary care physician. KARLA Voice ID: [id number] Report ID: [id number]
--- NOTE | 2025-04-16 00:45 | PN ---
Date of Progress Note: 04/15/2025 Chief Complaint: End-stage renal disease. Subjective: The patient is undergoing PT, OT. Review of Systems: Denies complaints. Physical Examination: Lungs: Clear to auscultation bilaterally. Heart: S1, S2. Abdomen: Soft. Extremities: No edema. Impression And Plan: 1. End-stage renal disease. Continue dialysis on Tuesday, , and Tuesday. 2. Hypertension, controlled. Currently on hydralazine. 3. Anemia due to chronic kidney disease. Continue JORDY. 4. Status post fall and arm fracture. Recommendations per primary team. EB/MODL Voice ID: [id number] Report ID: [id number]
[2025-04-16 06:45] VITALS: BP 131/60; TEMP 97.7
== END 2025-04-16 14:07 | DRG 559 ==
LOC: 5TH 23:44
PROVIDERS: ADMIT Psychiatry & Neurology Neurology with Special Qualifications in Child Neurology; ATTEND Psychiatry & Neurology Neurology with Special Qualifications in Child Neurology
PROC: 5A1D70Z Performance of Urinary Filtration, Intermittent, Less than 6 Hours Per Day (ICD-10-PCS; principal; 2025-04-04)
PROC: 5A1D70Z Performance of Urinary Filtration, Intermittent, Less than 6 Hours Per Day (ICD-10-PCS; 2025-04-06)
PROC: 5A1D70Z Performance of Urinary Filtration, Intermittent, Less than 6 Hours Per Day (ICD-10-PCS; 2025-04-09)
PROC: 5A1D70Z Performance of Urinary Filtration, Intermittent, Less than 6 Hours Per Day (ICD-10-PCS; 2025-04-11)
PROC: 5A1D70Z Performance of Urinary Filtration, Intermittent, Less than 6 Hours Per Day (ICD-10-PCS; 2025-04-13)
PROC: 5A1D70Z Performance of Urinary Filtration, Intermittent, Less than 6 Hours Per Day (ICD-10-PCS; 2025-04-16)
DX: S72.22XD Displaced subtrochanteric fracture of left femur, subsequent encounter for closed fracture with routine healing (principal); N18.6 End stage renal disease; I12.0 Hypertensive chronic kidney disease with stage 5 chronic kidney disease or end stage renal disease; C95.91 Leukemia, unspecified, in remission; N13.8 Other obstructive and reflux uropathy; B49 Unspecified mycosis; S52.202D Unspecified fracture of shaft of left ulna, subsequent encounter for closed fracture with routine healing; G31.84 Mild cognitive impairment of uncertain or unknown etiology; E11.22 Type 2 diabetes mellitus with diabetic chronic kidney disease; D63.1 Anemia in chronic kidney disease; N25.0 Renal osteodystrophy; N40.1 Benign prostatic hyperplasia with lower urinary tract symptoms; E78.5 Hyperlipidemia, unspecified; E03.9 Hypothyroidism, unspecified; H04.129 Dry eye syndrome of unspecified lacrimal gland; K59.09 Other constipation; G47.00 Insomnia, unspecified; R11.0 Nausea; Z91.81 History of falling; Z99.2 Dependence on renal dialysis; Z86.73 Personal history of transient ischemic attack (TIA), and cerebral infarction without residual deficits
CPT/HCPCS: 36415; 80069; 81001; 82947; 83036; 83735; 84134; 85025; 86705; 86706; 86803; 87077; 87086; 87088; 87186; 87340; 90935; 92523; 97110; 97112; 97116; 97129; 97163; 97165; 97530; 97542; G0433; J1644; J2003; J3590